=== PATIENT | female | born 1950 | race Caucasian/White ===

== ENCOUNTER 2016-11-21 21:06 | Observation (INO) | payer MEDICARE, OTHER ==
[2016-11-21 21:10] VITALS: BMI 31.9
[2016-11-21 21:37] LABS: ADD MANUAL DIFF? NO
[2016-11-21 21:58] LABS: ALB/GLOB RATIO 1.2 (1.1-1.8); ALKALINE PHOSPHATASE 73 U/L (38-133); ALT/SGPT 38 U/L (7-56); AST/SGOT 45 U/L (15-39); BLOOD UREA NITROGEN 18 mg/dL (7-21); CALCIUM 8.4 mg/dL (8.4-10.5); CARBON DIOXIDE 25 mmol/L (21-33); CHLORIDE 99 mmol/L (98-107); GFR AFRICAN-AMERICAN 39; GLUCOSE,RANDOM 140 mg/dL (70-110); MAGNESIUM 1.4 mg/dL (1.7-2.2); SODIUM 138 mmol/L (132-148); TOTAL PROTEIN 7.6 g/dL (5.8-8.3)
[2016-11-21 21:59] LABS: BASO # 0.01 K/mm3 (0.0-2.0); BASO % 0.1 % (0.0-3.0); GRAN # 5.04 (1.4-6.5); GRAN % 72.1 % (50.0-68.0); HEMATOCRIT 36.8 % (36.0-48.0); LYMPH # 1.6 (1.2-3.4); LYMPH % 22.5 % (22.0-35.0); MEAN CELL VOLUME 95.6 fL (80.0-105.0); MEAN CORPUSCULAR HEMOGLOBIN 34.3 pg (25.0-35.0); MEAN CORPUSCULAR HGB CONC 35.9 g/dl (31.0-37.0); MEAN PLATELET VOLUME 9.2 fl (7.0-11.0); MONO # 0.4 (0.1-0.6); MONO % 5.3 % (1.0-6.0); PLATELET COUNT 168 10^3/uL (120.0-450.0); RED CELL DISTRIBUTION WIDTH 14.4 % (11.5-14.5)
[2016-11-21] MEDS ORDERED: Nitroglycerin 2% Ointment Foilpak UD TOP STA (21:59)
[2016-11-21 22:00] LABS: POTASSIUM 2.8 mmol/L (3.6-5.0)
[2016-11-21 22:10] LABS: TROPONIN I < 0.01 ng/mL
[2016-11-21] MEDS ORDERED: Magnesium Oxide 400 mg Tab UD PO STA (22:24)
[2016-11-21 22:52] LABS: URINE BILIRUBIN SMALL (NEGATIVE); URINE BLOOD SMALL (NEGATIVE); URINE GLUCOSE (UA) NEGATIVE (NEGATIVE); URINE KETONE 15 mg/dL (NEGATIVE); URINE LEUKOCYTE ESTERASE MODERATE Leu/uL (NEGATIVE); URINE PROTEIN 100 mg/dL (<30 mg/dL)
[2016-11-21 22:56] LABS: URINE APPEARANCE CLOUDY (CLEAR); URINE COLOR YELLOW (YELLOW)
[2016-11-21 23:15] LABS: URINE BACTERIA MANY (NEG); URINE WBC 25 - 30 /hpf (0-6)
--- NOTE | 2016-11-21 23:19 | ED PDOC ---
Arrival/HPI - General Chief Complaint: Chest Pain Time Seen by Provider: 11/21/16 21:08 Historian: Patient - History of Present Illness Narrative History of Present Illness (Text): 11/21/16 23:16 Willow Cast is a 66 year old female, with a history of CHF, hypertension, asthma, and diabetes, presents to the emergency department complaining of intermittent chest pain for past 3 days. States that pain presented today while watching a movie. Also reports of cramping sensation to hands. Denies fever, chills, headache, dizziness, shortness of breath, nausea, vomiting, diarrhea, urinary symptoms, or any other complaints at this time. Time/Duration: < week (3 days ) Symptom Onset: Gradual Symptom Course: Intermittent Severity Level: Mild Activities at Onset: Light Past Medical History - Provider Review Nursing Documentation Reviewed: Yes - Past History Past History: No Previous - Infectious Disease Hx of Infectious Diseases: None - Tetanus Immunization Tetanus Immunization: Unknown - Reproductive Menopause: Yes - Past Medical History Past Medical History: No Previous - Cardiac Hx Cardiac Disorders: Yes Hx Congestive Heart Failure: Yes Hx Hypertension: Yes Hx Pacemaker: No - Pulmonary Hx Respiratory Disorders: Yes Hx Asthma: Yes - Neurological Hx Neurological Disorder: No Hx Paralysis: No - HEENT Hx HEENT Disorder: No - Renal Hx Renal Disorder: No - Endocrine/Metabolic Hx Endocrine Disorders: Yes Hx Diabetes Mellitus Type 2: Yes - Hematological/Oncological Hx Blood Disorders: No Hx Blood Transfusions: No - Integumentary Hx Dermatological Disorder: No - Musculoskeletal/Rheumatological Hx Musculoskeletal Disorders: Yes - Gastrointestinal Hx Gastrointestinal Disorders: No - Genitourinary/Gynecological Hx Genitourinary Disorders: No - Psychiatric Hx Psychophysiologic Disorder: No Hx Emotional Abuse: No Hx Physical Abuse: No Hx Substance Use: No - Past Surgical History Past Surgical History: No Previous - Surgical History Hx Cardiac Catheterization: Yes Hx Coronary Stent: Yes - Anesthesia Hx Anesthesia: Yes Hx Anesthesia Reactions: No Hx Malignant Hyperthermia: No - Suicidal Assessment Feels Threatened In Home Enviroment: No Family/Social History - Physician Review Nursing Documentation Reviewed: Yes Family/Social History: No Known Family HX Smoking Status: Former Smoker Hx Alcohol Use: Yes (MINIMAL/SOCIALLY) Hx Substance Use: No Hx Substance Use Treatment: No Allergies/Home Meds Allergies/Adverse Reactions: Allergies No Known Allergies Allergy (Verified 10/21/15 16:28) Home Medications: Home Meds Medication Instructions Recorded Confirmed Acetaminophen/Oxycodone Hydr 1 tab PO PRN PRN 02/08/15 11/21/16 [Percocet 10/325 mg Tab] Furosemide [Lasix] 40 mg PO DAILY 02/17/15 11/21/16 diaZEpam [Valium] 10 mg PO PRN PRN 02/17/15 11/21/16 Atorvastatin [Lipitor] 80 mg PO DAILY 03/11/15 11/21/16 DULoxetine [Cymbalta] 20 mg PO DAILY 03/11/15 11/21/16 Famotidine [Pepcid] 20 mg PO QAM 03/11/15 11/21/16 Lisinopril/Hydrochlorothiazide 1 tab PO DAILY 03/11/15 11/21/16 [Lisinopril-Hydrochlorothiazide 25 mg-20 mg] Bupropion HCl [Bupropion Xl] 150 mg PO DAILY 10/21/15 11/21/16 Simvastatin [Zocor] 20 mg PO DAILY 10/21/15 11/21/16 Digoxin [Lanoxin] 0.125 mg PO QAM 11/21/16 11/21/16 Metformin HCl [Glucophage] 500 mg PO BID 11/21/16 11/21/16 Propranolol HCl [Propranolol HCl] 40 mg PO DAILY 11/21/16 11/21/16 Review of Systems - Physician Review All systems were reviewed & negative as marked: Yes - Review of Systems Constitutional: Normal. absent: Fatigue, Fevers Respiratory: absent: SOB, Cough, Sputum Cardiovascular: Chest Pain. absent: Palpitations Gastrointestinal: Normal. absent: Abdominal Pain, Diarrhea, Nausea, Vomiting Genitourinary Female: Normal Musculoskeletal: Other (cramping sensation to hands ) Skin: Normal Neurological: Normal. absent: Headache, Dizziness Psychiatric: Normal Physical Exam Vital Signs Reviewed: Yes Vital Signs Temp Pulse Pulse Resp BP BP Pulse Ox 11/21/16 23:40 87 17 158/97 H 100 11/21/16 21:32 96 H 140/84 11/21/16 21:17 98.7 F 96 H 18 140/84 100 Temperature: Afebrile Blood Pressure: Normal Pulse: Tachycardic Respiratory Rate: Normal Appearance: Positive for: Well-Appearing, Non-Toxic, Comfortable Pain Distress: None Mental Status: Positive for: Alert and Oriented X 3 - Systems Exam Head: Present: Atraumatic, Normocephalic Pupils: Present: PERRL Conjunctiva: Present: Normal Respiratory/Chest: Present: Clear to Auscultation, Good Air Exchange. No: Respiratory Distress, Accessory Muscle Use Cardiovascular: Present: Regular Rate and Rhythm, Normal S1, S2. No: Murmurs Abdomen: Present: Normal Bowel Sounds. No: Tenderness, Distention, Peritoneal Signs Upper Extremity: Present: Normal Inspection. No: Cyanosis, Edema Lower Extremity: Present: Normal Inspection. No: Edema Neurological: Present: GCS=15, CN II-XII Intact, Speech Normal, Motor Func Grossly Intact, Normal Sensory Function Skin: Present: Warm, Dry, Normal Color. No: Rashes Psychiatric: Present: Alert, Oriented x 3, Normal Insight, Normal Concentration Medical Decision Making ED Course and Treatment: 11/21/16 23:23 Impression: A 66 year old female who presents to the emergency department complaining of 3 day duration of intermittent chest pain and cramping of hands. Plan: -- EKG -- Chest X-ray -- Labs -- Keflex -- Mag-Ox -- Potassium -- Nitroglycerin -- Urine culture -- Urinalysis -- Reassess and disposition Progress Notes: 11/21/16 23:25 EKG reviewed by me: NSR @ 85 bpm. Possible left atrial enlargement. Prolonged QT. Case discussed with who is aware and agrees with the plan to observe patient in telemetry for chest pain. Accepts patient under her service. - Lab Interpretations Microbiology Results: Microbiology Results 11/21/16 22:15 Urine,Clean Catch Urine Culture - Final No Growth (<1,000 CFU/ML) Lab Results: 11/21/16 21:30 11/21/16 21:30 Lab Results 11/21/16 22:15: Urine Color Yellow, Urine Appearance Cloudy, Urine pH 6.0, Ur Specific [place] >= 1.030, Urine Protein 100 H, Urine Glucose (UA) Negative, Urine Ketones 15 H, Urine Blood Small H, Urine Nitrate Negative, Urine Bilirubin Small H, Urine Urobilinogen 1.0 H, Ur Leukocyte Esterase Moderate H, Urine RBC 5 - 10, Urine WBC 25 - 30, Ur Epithelial Cells 10 - 12, Urine Bacteria Many 11/21/16 21:30: Sodium 138, Potassium 2.8 L* D, Chloride 99, Carbon Dioxide 25, Anion Gap 17, BUN 18, Creatinine 1.6 H, Est GFR ( Amer) 39, Est GFR (Non- Af Amer) 32, Random Glucose 140 H, Calcium 8.4, Magnesium 1.4 L, Total Bilirubin 1.0, AST 45 H, ALT 38, Alkaline Phosphatase 73, Lactate Dehydrogenase 562, Total Creatine Kinase 200, Troponin I < 0.01, Total Protein 7.6, Albumin 4.1, Globulin 3.5, Albumin/Globulin Ratio 1.2 11/21/16 21:30: WBC 7.0, RBC 3.85, Hgb 13.2, Hct 36.8, MCV 95.6, MCH 34.3, MCHC 35.9, RDW 14.4, Plt Count 168, MPV 9.2, Gran % 72.1 H, Lymph % (Auto) 22.5, Mclennan % (Auto) 5.3, Eos % (Auto) 0.0 L, Baso % (Auto) 0.1, Gran # 5.04, Lymph # 1.6, Mclennan # 0.4, Eos # 0.0, Baso # 0.01 I have reviewed the lab results: Yes - RAD Interpretation Radiology Orders: 11/21/16 21:32 CHEST PORTABLE [RAD] Stat - EKG Interpretation Interpreted by ED Physician: Yes Type: 12 lead EKG - Medication Orders Current Medication Orders: Discontinued Medications Acetaminophen (Tylenol 325mg Tab) 650 mg PO Q4H PRN PRN Reason: Fever >100.5 F Last Admin: 11/22/16 21:42 Dose: 650 mg Aminophylline (Aminophylline 25 Mg/Ml Inj) Confirm Administered Dose 250 mg .ROUTE .STK-MED ONE Stop: 11/23/16 11:19 Last Admin: 11/23/16 10:00 Dose: 100 mg Aspirin (Aspirin Chewable) 81 mg PO DAILY [facility] Last Admin: 11/23/16 14:14 Dose: 81 mg Atorvastatin Calcium (Lipitor) 80 mg PO DAILY [facility] Last Admin: 11/23/16 14:13 Dose: 80 mg Cephalexin Monohydrate (Keflex) 500 mg PO STAT STA PRN Reason: Protocol Stop: 11/21/16 23:13 Last Admin: 11/21/16 23:38 Dose: 500 mg Cephalexin Monohydrate (Keflex) 500 mg PO BID [facility] PRN Reason: Protocol Last Admin: 11/23/16 18:00 Dose: Clopidogrel Bisulfate (Plavix) 75 mg PO DAILY [facility] Last Admin: 11/23/16 14:13 Dose: 75 mg Digoxin (Lanoxin) 0.125 mg PO 1400 [facility] Last Admin: 11/23/16 14:14 Dose: 0.125 mg Duloxetine HCl (Cymbalta) 20 mg PO DAILY [facility] Last Admin: 11/23/16 14:13 Dose: 20 mg Famotidine (Pepcid) 20 mg PO QAM [facility] Last Admin: 11/23/16 14:13 Dose: 20 mg Furosemide (Lasix) 40 mg PO DAILY [facility] Last Admin: 11/23/16 14:15 Dose: 40 mg Hydrochlorothiazide (Hydrodiuril) 25 mg PO DAILY [facility] Last Admin: 11/23/16 14:16 Dose: 25 mg Potassium Chloride (Potassium Chloride 20 Meq/100 Ml) 20 meq in 100 mls @ 50 mls/hr IVPB Q2H [facility] Stop: 11/22/16 02:14 Last Admin: 11/22/16 00:50 Dose: 50 mls/hr Insulin Human Regular (Humulin R Low) 0 units SC [facility] PRN Reason: Protocol Last Admin: 11/22/16 07:49 Dose: Not Given Non-Admin Reason: Blood Sugar Parameter Insulin Human Regular (Humulin R Low) 0 units SC [facility] PRN Reason: Protocol Last Admin: 11/23/16 18:20 Dose: Not Given Non-Admin Reason: Blood Sugar Parameter Lisinopril (Zestril) 20 mg PO DAILY [facility] Last Admin: 11/23/16 14:17 Dose: 20 mg Magnesium Oxide (Mag-Ox) 400 mg PO STAT STA Stop: 11/21/16 22:25 Last Admin: 11/21/16 22:38 Dose: 400 mg Mirtazapine (Remeron) 15 mg PO HS PRN PRN Reason: Insomnia Last Admin: 11/22/16 21:42 Dose: 15 mg Oxycodone/Acetaminophen (Percocet 5/325 Mg Tab) 1 tab PO ONCE ONE Stop: 11/23/16 14:29 Last Admin: 11/23/16 14:38 Dose: 1 tab Potassium Chloride (K-Dur 20 Meq Er Tab) 40 meq PO ONCE ONE Stop: 11/22/16 09:19 Last Admin: 11/22/16 11:27 Dose: 40 meq Potassium Chloride (K-Dur 20 Meq Er Tab) 40 meq PO ONCE ONE Stop: 11/22/16 14:01 Last Admin: 11/22/16 15:31 Dose: 40 meq Potassium Chloride (K-Dur 20 Meq Er Tab) 40 meq PO ONCE ONE Stop: 11/23/16 07:31 Last Admin: 11/23/16 08:04 Dose: 40 meq Propranolol HCl (Inderal) 40 mg PO DAILY [facility] Last Admin: 11/23/16 14:15 Dose: 40 mg Regadenoson (Lexiscan) Confirm Administered Dose 0.4 mg IVP .STK-MED ONE Stop: 11/23/16 11:19 Last Admin: 11/23/16 11:45 Dose: 0.4 mg Spironolactone (Aldactone) 25 mg PO DAILY [facility] Last Admin: 11/23/16 14:14 Dose: 25 mg Tramadol HCl (Ultram) 50 mg PO DAILY PRN PRN Reason: Pain, moderate (4-7) Last Admin: 11/22/16 18:19 Dose: 50 mg - Cindy Statement The provider has reviewed the documentation as recorded by the Cindy Morton Provider Attestation: All medical record entries made by the Cindy were at my direction and personally dictated by me. I have reviewed the chart and agree that the record accurately reflects my personal performance of the history, physical exam, medical decision making, and the department course for this patient. I have also personally directed, reviewed, and agree with the discharge instructions and disposition. Disposition/Present on Arrival - Present on Arrival Any Indicators Present on Arrival: No History of DVT/PE: No History of Uncontrolled Diabetes: No Urinary Catheter: No History of Decub. Ulcer: No History Surgical Site Infection Following: None - Disposition Have Diagnosis and Disposition been Completed?: Yes Diagnosis: Chest pain, Hypokalemia Disposition: HOSPITALIZED Disposition Time: 23:20 Condition: GOOD
[2016-11-22] MEDS ORDERED: Insulin Reg-LOW-Coverage SC SCH (07:30)
[2016-11-22 08:00] LABS: MAGNESIUM 1.4 mg/dL (1.7-2.2)
[2016-11-22 08:09] LABS: TROPONIN I 0.02 ng/mL
[2016-11-22 08:16] LABS: IRON 177 ug/dL (45-180)
[2016-11-22] MEDS ORDERED: Potassium Chloride 20 mEq ER Tab PO ONE ×4 (09:18→17:00)
--- NOTE | 2016-11-22 09:48 | RAD ---
HISTORY: cp COMPARISON: 02/08/2015 FINDINGS: LUNGS: No active pulmonary disease. PLEURA: No significant pleural effusion identified, no pneumothorax apparent. CARDIOVASCULAR: Normal. OSSEOUS STRUCTURES: No significant abnormalities. VISUALIZED UPPER ABDOMEN: Normal. OTHER FINDINGS: None. IMPRESSION: No active disease.
--- NOTE | 2016-11-22 10:08 | CON ---
DATE: 11/22/2016 ADDENDUM REASON FOR DICTATION: Addendum to the initial consult dictated. REASON FOR ADDENDUM: Repeat potassium shows 2.8. The patient was brought to the stress lab for a st ress test today, but the repeat potassium shows 2.8, so stress test canceled because of a very signif icant low and high risk for arrhythmia, so we are sending back to the floor. Start potassium stat 40 now, another 40 mg at 1 p.m., another third dose of potassium at 5 p.m., so total of 120 mEq today. Resume the diet. We will keep n.p.o. after midnight for stress test rescheduled tomorrow. Also, we will start spironolactone 25 mg daily from tomorrow because patient is already on hydrochlorothiazid e, needs supplement. If tomorrow potassium remains stable, we will do a stress test tomorrow. Thank you, Dr. Olvera, for providing us the opportunity in taking care of the patient. Diana Adkins MD cc:Fariha Olvera MD [id number] TT: 11/22/2016 10:07:19 Confirmation # [id number] Dictation # [id number]
--- NOTE | 2016-11-22 10:35 | CON ---
DATE: 11/22/2016 SERVICE: Cardiology. PHYSICIAN: Diana Adkins MD. REASON FOR CONSULTATION: Coronary artery disease, admitted with chest pain, status post multiple PTCAs. BRIEF CLINICAL HISTORY: This is a 66-year-old female with past medical history significant for hypertension, asthma, COPD, diabetes, hypertension, hyperlipidemia, coronary artery disease status post multiple stents, who was in the movie theater with her daughter and granddaughter, and suddenly feels a squeezing sensation in the chest, and it went into the arm. So decided to come to the Emergency Room. Denies any chest pain, but she complained sometimes chest pain comes, and it stays there for a while, and then gets better. History of PTCAs in the past. PAST MEDICAL HISTORY: Significant for coronary artery disease, diabetes, hypertension, hyperlipidemia, history of congestive heart failure in 2004 that the patient had echo and stress at [facility], and was told negative. Recently, the patient had cardiac catheterization last year, and then subsequently, PTCA of RCA was done. History of diabetes, hypertension, hyperlipidemia, possibly some element of noncompliance also. Previous cardiac workup as follows: The patient had a stress test on 2014 that shows no perfusion defect. When compared from 04/13/2012, unchanged, however, deterioration of the LV function noted. Ejection fraction on the last stress 02/09/2015 was 39%, and prior, it was 62% in 2011. Echocardiography done on 02/09/2015 that showed ejection fraction 35% -40%, trace aortic regurgitation, mild to moderate mitral regurg, mild to moderate tricuspid regurgitation, RV systolic pressure 44. The patient, subsequently, underwent cardiac catheterization on 02/11/2015 with the deployment of drug-eluting stent in LAD with a SARTHAK. At that time, cardiac catheterization revealed 2-vessel disease involving mid LAD and proximal, and mid RCA as well as distal RCA, ejection fraction 45-50%. EDP was in the range of 18. At that time, successful PTCA with a drug-eluting stent in mid LAD was done on , and subsequently, the patient admitted for a staged PTCA of RCA on 09/2014, when the patient underwent a staged PTCA of mid RCA with a drug- eluting stent and the proximal RCA with a drug-eluting stent in RCA. At that time, LV function, ejection fraction is 40-45%, patent stent to mid LAD just done a month ago, and EDP was in the range of 24, aggressive medical treatment was recommended. The patient was sent home on aspirin and Plavix. SOCIAL HISTORY: Denies any history of alcohol abuse. ALLERGIES: No known drug allergy. CURRENT MEDICATIONS: The patient is taking propranolol 40 mg daily, metformin, digoxin,ASA, simvastatin, lisinopril, furosemide,, Cymbalta, Plavix,, atorvastatin, aspirin, acetaminophen. REVIEW OF SYSTEMS: As per HPI. PHYSICAL EXAMINATION: VITAL SIGNS: Temperature afebrile, heart rate 86 blood pressure 130/54. HEENT: PERRLA. Extraocular muscles intact. NECK: Supple. No carotid bruits. No thyromegaly. CHEST: Clear to auscultation. HEART: S1, S2 regular. ABDOMEN: Soft. EXTREMITIES: Clubbing and cyanosis negative. LABORATORY DATA: Blood workup as follows: WBC 7, hemoglobin 13.2, hematocrit 36.8, platelet count 168. Chemistry shows sodium 130, potassium 2.8, chloride 98, carbon dioxide 25, anion gap of 17, BUN 18, creatinine 1.6. Troponin 0.01 x 2 negative. IMPRESSION: Chest pain, some element of noncompliance, severe hypokalemia, coronary artery disease status post percutaneous transluminal coronary angioplasty of left anterior descending 02/11/2015, mid left anterior descending with a drug-eluting stent. Then, status post staged percutaneous transluminal coronary angioplasty of right coronary artery on 03/12/2015 with the proximal and distal right coronary artery, mid to distal right coronary artery, and the proximal right coronary artery with a drug-eluting stent. Ejection fraction 40- 45%. Mitral regurgitation, tricuspid regurgitation, diabetes, hypertension, hyperlipidemia. So far, troponin remains negative. No evidence of acute myocardial infarction. EKG shows normal sinus, left atrial enlargement. RECOMMENDATION: We will get echo and stress test today. We will keep n.p.o. Repeat a stat potassium, and will schedule for a stress test today. Further recommendation after the stress test. We will get lipid profile, TSH, hemoglobin A1c. Emphasis made on compliance with the medication, and also weight reduction and risk factor modification for lifestyle is recommended. Thank you, Dr. Olvera, for providing the opportunity in taking care of the patient. Diana Adkins MD cc: Fariha Olvera MD [phone] TT: 11/22/2016 10:18:48 Confirmation # [id number] Dictation # [id number] jn 11/22/2016 09:34:50 HOMERO
[2016-11-22] MEDS: Insulin Reg-LOW-Coverage SC SCH ×3 (12:21→22:54)
[2016-11-22 13:46] LABS: FOLATE 10.6 ng/mL
[2016-11-22] MEDS: Digoxin 125 mcg (0.125 mg) Tab PO SCH (15:31)
[2016-11-22 16:41] LABS: CALCIUM 8.2 mg/dL (8.4-10.5); POTASSIUM 3.8 mmol/L (3.6-5.0)
--- NOTE | 2016-11-22 21:20 | HP ---
CHIEF COMPLAINT: Chest pain, palpitation. HISTORY OF PRESENT ILLNESS: The patient is a 66-year-old female, new for me with history of congestive heart failure, hypertension, asthma, diabetes mellitus, who came to the Emergency Room complaining about intermittent chest pain for the last 3 days and palpitations. The patient states that pain presented today while watching a movie also reports of cramping sensation to the hands. No fever, no chills. No nausea, vomiting, diarrhea. No headache, no dizziness. PAST MEDICAL HISTORY: Menopause, congestive heart failure, hypertension, asthma , diabetes mellitus, coronary artery disease and cardiac stenting. FAMILY HISTORY: Father and mother, noncontributory. HABITS: Former smoker. No smoking now. Quit alcohol minimally, socially. No substance abuse. ALLERGIES: The patient is not allergic to any medications. HOME MEDICATIONS: Oxycodone, Lasix, Valium, Lipitor, Cymbalta, Pepcid, lisinopril, Zocor, digoxin, Glucophage, propranolol. REVIEW OF SYSTEMS: The patient is seen and examined on the bedside in the telemetry complaining about pain in the legs. No chest pain, no palpitations right now. No nausea, vomiting, or diarrhea. No hematuria or hematochezia. No fever, no chills, no headache, no dizziness, not depressed. No shortness of breath or coughing. PHYSICAL EXAMINATION: VITAL SIGNS: Temperature 98.7, pulse 96, respiratory rate 18. Blood pressure 140/84, pulse ox 100%. HEENT: Normocephalic, atraumatic. Eyes: PERRLA. Extraocular muscles are intact. Conjunctivae are clear. Nose patent. NECK: Supple. No carotid bruits, JVD, or thyromegaly. CHEST: Bilaterally symmetrical. HEART: S1, S2 positive. LUNGS: Clear to auscultation. ABDOMEN: Soft. Bowel sounds present. No organomegaly. EXTREMITIES: No edema, no cyanosis. NEUROLOGIC: The patient is alert, moving all 4 extremities. No focal deficits. LABORATORY DATA: White blood cell 7.0, hemoglobin 13.2, hematocrit 36.8, platelets 138. Potassium 2.8, BUN 18, creatinine 1.6, glucose 140. ASSESSMENT AND PLAN: This patient is a 66-year-old lady with severe hypokalemia replaced, renal insufficiency, diabetes mellitus, came with chest pain and palpitation, seen by Dr. Adkins, manager disaster recovery. History of coronary artery disease, hypertension, hypercholesterolemia, history of congestive heart failure in 2004, came with chest pain some element of noncompliance. Status post percutaneous transluminal coronary angioplasty of left anterior descending on 02/11/2015. Troponin is negative. No evidence of acute myocardial infarction. EKG shows normal sinus rhythm, left atrial enlargement. Repeat potassium. She was seen by Dr. Adkins, manager disaster recovery. Repeat potassium shows 2.8. stress test was scheduled today, but because of low potassium it was cancelled. The patient was given stat potassium 40 mEq and 40 mEq at 1 p.m., another one, third dose of potassium at 5 p.m.; so total of 120 mEq today. Resume the diet. Keep n.p.o. after midnight for stress test tomorrow, rescheduled tomorrow. The patient started on spironolactone because the patient is already on hydrochlorothiazide, needs supplement. If tomorrow's potassium is okay, will do stress test as per cardiology. Gastrointestinal and deep venous thrombosis prophylaxis. Repeat labs. We will follow up. Fariha Olvera MD cc: [id number] TT: 11/22/2016 21:19:37 jn MTDD
--- NOTE | 2016-11-22 22:58 | CARD ---
APPROVED REPORT EKG Measurement Heart [id number] <Conclusion> Normal sinus rhythm Possible Left atrial enlargement Prolonged QT Abnormal ECG
--- NOTE | 2016-11-22 23:00 | CARD ---
APPROVED REPORT EKG Measurement Heart [id number] ID [id number] <Conclusion> Normal sinus rhythm Possible Left atrial enlargement Borderline ECG
[2016-11-23 05:40] VITALS: O2SAT 98
[2016-11-23 06:25] LABS: ADD MANUAL DIFF? NO
[2016-11-23 06:34] LABS: BASO # 0.01 K/mm3 (0.0-2.0); BASO % 0.3 % (0.0-3.0); EOS % 0.7 % (1.5-5.0); GRAN # 1.57 (1.4-6.5); GRAN % 52.3 % (50.0-68.0); HEMATOCRIT 30.9 % (36.0-48.0); LYMPH # 1.1 (1.2-3.4); LYMPH % 37.7 % (22.0-35.0); MEAN CELL VOLUME 97.5 fL (80.0-105.0); MEAN CORPUSCULAR HEMOGLOBIN 33.8 pg (25.0-35.0); MEAN CORPUSCULAR HGB CONC 34.6 g/dl (31.0-37.0); MEAN PLATELET VOLUME 9.1 fl (7.0-11.0); MONO # 0.3 (0.1-0.6); PLATELET COUNT 121 10^3/uL (120.0-450.0); RED CELL DISTRIBUTION WIDTH 14.2 % (11.5-14.5)
[2016-11-23 06:53] LABS: ALKALINE PHOSPHATASE 47 U/L (38-133); ALT/SGPT 30 U/L (7-56); AST/SGOT 37 U/L (15-39); BILIRUBIN,TOTAL 0.8 mg/dL (0.2-1.3); BLOOD UREA NITROGEN 10 mg/dL (7-21); CALCIUM 8.1 mg/dL (8.4-10.5); CARBON DIOXIDE 26 mmol/L (21-33); CHLORIDE 108 mmol/L (98-107); GFR AFRICAN-AMERICAN > 60; GLUCOSE,RANDOM 100 mg/dL (70-110); MAGNESIUM 1.6 mg/dL (1.7-2.2); POTASSIUM 3.5 mmol/L (3.6-5.0); SODIUM 139 mmol/L (132-148)
[2016-11-23] MEDS ORDERED: Potassium Chloride 20 mEq ER Tab PO ONE (07:30)
[2016-11-23] MEDS: Insulin Reg-LOW-Coverage SC SCH ×3 (07:30→18:20)
--- NOTE | 2016-11-23 09:56 | PN ---
DATE: 11/23/2016 REASON FOR CONSULTATION AND FOLLOWUP: Coronary artery disease, admitted with chest pain, status post multiple PTCAs. BRIEF CLINICAL HISTORY: This is a 66-year-old female with past medical history significant for hyper tension, COPD, asthma, hypertension, hyperlipidemia, coronary artery disease, status post multiple st ents who was at movie theater with her daughter and granddaughter, had chest pain. So far, troponin is negative. No evidence of acute coronary syndrome. Potassium was 2.____. Repeat potassium after several minutes 2.8, then last night it was 3.8. This morning again the potassium is 3.5; it is supp lemented. The patient is scheduled for a stress test today. Denies any chest pain. PHYSICAL EXAMINATION: VITAL SIGNS: Temperature afebrile, heart rate 60, blood pressure 144/80. HEENT: PERRLA. Extraocular muscles intact. NECK: Supple. No carotid bruits. No thyromegaly. CHEST: Clear to auscultation. HEART: S1, S2 regular. ABDOMEN: Soft. EXTREMITIES: Clubbing and cyanosis negative. BLOOD WORKUP: As follows: WBC 3, hemoglobin 10.7, hematocrit 30.9, platelet count 121. Chemistry s hows sodium ____, potassium 3.5, chloride 108, carbon dioxide 26, anion gap of 9, BUN 10, creatinine 1.0. IMPRESSION: Atypical chest pain. So far, no evidence of acute coronary syndrome. PLAN: Given the multiple stents in the past, suggest echo and stress test. Supplement potassium 40 before he goes to the stress lab. Further recommendation after the stress lab. The patient's trigly cerides 146, cholesterol 146, LDL 51, HDL 66. TSH 3.76. Will follow with you. Thank you, Dr. Olvera, for providing the opportunity in taking care of the patient. Diana Adkins MD cc: [id number] TT: 11/23/2016 09:55:46 Confirmation # [id number] Dictation # [id number]
[2016-11-23] MEDS ORDERED: Aminophylline 25 mg/ml Inj ONE (11:18)
[2016-11-23] MEDS: Digoxin 125 mcg (0.125 mg) Tab PO SCH (14:14)
[2016-11-23 14:20] VITALS: PULSE 83
[2016-11-23] MEDS ORDERED: Oxycodone/Acetaminophen 5/325 mg Tab PO ONE ×2 (14:26→14:28)
--- NOTE | 2016-11-23 17:41 | CARD ---
APPROVED REPORT Protocol: LEXISCAN Test Type: Lexiscan Sestamibi Stress Test Attending Physician: Dr. Diana Crook Referring Physician: Dr. Fariha Olvera Test Indications: Chest Pain Height:5 ft 8 in Weight:210lbs Medications: Aspirin,Lipitor,Keflex,Plavix, Lanoxin,Cymbalta, Pepcid,Lasix, Insulin,Lisinipril,Inderal Medical History: 66 y/o female. Hx of chest pain, PTCA,hypertension, CHF,asthma,former smoker,diabetic. Target HR: 154 bpm Resting ECG: RSR. Resting Heart Rate: 69 bpm Resting Blood Pressure: 130/80mmHg Submaximum (85%): 131 bpm PROCEDURE Pharmacologic stress testing was performed using 0.4mg per 5ml of regadenoson given intravenously over 7-10 seconds. Reversal agent aminophyline 100 mg, given intravenously for Other. POST EXERCISE Reason for Termination: Protocol completed Target HR: No Max HR: 76 bpm 64% of Maximum Predicted HR: 154 bpm Exercise duration: 00:30 min:sec, 0 Stage Exercise capacity: 1.0METs Max Blood Pressure: 130/80mmHg Blood Pressure response to exercise: normal resting BP - appropriate response Heart Rate response to exercise: appropriate Chest Pain: No, none Angina index: 0 Arrhythmia: No, none ST Change: No, none Deviation: 0 mm INTERPRETATION Stress EKG Conclusion: IV LEXISCAN NUCLEAR STRESS TEST NEGATIVE FOR CHEST PAIN AND NEGATIVE FOR ST-T CHANGES. NUCLEAR SCAN REPORT PENDING. Signed by Diana Crook Electronically Approved: 11/23/2016 14:00:13 EXAM: Myocardial Perfusion REST/STRESS Stress Test Type: Pharmacologic Imaging Protocol Rest Spect myocardial perfusion imaging was performed in supine position 40 minutes following the injection of 10.5 mCi of Tc-99 Myoview. At peak stress, the patient was injected intravenously with 30.2mCi of Tc-99 tetrofosmin after an infusion time of 0 minutes and 10 seconds. Gated Stress Spect was performed 65 minutes after intravenous Tc-99 Myoview injection. The images were gated to evaluate regional wall motion and calculate ventricular ejection fraction.Images were reconstructed using backfilter projection method in short horizontal and verticle long axis. Spect slices were generated.
[2016-11-23 18:27] VITALS: BP 146/87; RESP 16; TEMP 97.6
[2016-11-23 18:37] VITALS: PULSE 69
--- NOTE | 2016-11-24 17:07 | CARD ---
APPROVED REPORT EXAM: Two-dimensional and M-mode echocardiogram with Doppler and color Doppler. INDICATION Chest Pain 2D DIMENSIONS Left Atrium (2D)4.4 (1.6-4.0cm)IVSd1.4 (0.7-1.1cm) LVDd4.5 (3.9-5.9cm)PWd1.3 (0.7-1.1cm) LVDs3.8 (2.5-4.0cm)FS (%) 16.2 % LVEF (%)34.0 (>50%) M-Mode DIMENSIONS Aortic Root2.80 (2.2-3.7cm)Aortic Cusp Exc.1.70 (1.5-2.0cm) Aortic Valve AoV Peak Jkzdmuls276.0cm/sAoV VTI30.7cmAO Peak GR.9mmHg LVOT Peak Ehuixoos46.0cm/sLVOT VTI17.90cmAO Mean GR.5mmHg Mitral Valve MV E Xuummmbs11.1cm/sMV A Mpzitaxu562.0cm/sE/A ratio0.6 TDI Lateral E' Peak V5.85cm/sMedial E' Peak V4.00cm/sE/Lateral E'12.3 E/Medial E'18.0 Pulmonary Valve PV Peak Stxyutqd75.7cm/sPV Peak Grad.2mmHg Tricuspid Valve TR Peak Hgjwnnny776gm/sRAP ZRRGYZRL61rrYgRU Peak Gr.30mmHg [id number] LEFT VENTRICLE The Left Ventricle is borderline dilated. There is mild concentric left ventricular hypertrophy. The systolic function is moderately impaired.EF-35% There is mild to moderate hypokinesis in the apical anterior wall. Transmitral Doppler flow pattern is Grade III-reversible restrictive diastolic dysfunction. No left ventricle thrombus noted on this study. There is no ventricular septal defect visualized. There is no left ventricular aneurysm. There is no mass noted in the left ventricle. RIGHT VENTRICLE The right ventricle is normal size. There is normal right ventricular wall thickness. The right ventricular systolic function is normal. ATRIA The left atrium is mildly dilated. The right atrium is borderline dilated. The interatrial septum is intact with no evidence for an atrial septal defect. AORTIC VALVE The aortic valve is thickened but opens well. There is mild aortic regurgitation. There is no aortic valvular stenosis. There is no aortic valvular vegetation. MITRAL VALVE The mitral valve is thickened but opens well. Mitral annular calcification is mild to moderate. Mitral regurgitation is moderate to severe. The mitral regurgitant jet is eccentrically directed. There is no mitral valve stenosis. There is no evidence of mitral valve prolapse. TRICUSPID VALVE The tricuspid valve leaflets are thickened , but open well. There is mild to moderate tricuspid regurgitation.RVSP-40 mmof hg. There is no tricuspid valve stenosis. There is no tricuspid valve prolapse or vegetation. PULMONIC VALVE The pulmonary valve is normal in structure. GREAT VESSELS The aortic root is normal in size. The ascending aorta is normal in size. The pulmonary artery is normal. The IVC is normal in size and collapses >50% with inspiration. PERICARDIAL EFFUSION There is no pleural effusion. There is no pericardial effusion. <Conclusion> The Left Ventricle is borderline dilated. There is mild concentric left ventricular hypertrophy. The systolic function is moderately impaired.EF-35% There is mild to moderate hypokinesis in the apical anterior wall. There is mild aortic regurgitation. Mitral regurgitation is moderate to severe. The mitral regurgitant jet is eccentrically directed. There is mild to moderate tricuspid regurgitation.RVSP-40 mmof hg. There is no pericardial effusion.
--- NOTE | 2016-12-05 07:50 | DS ---
CHIEF COMPLAINT: Chest pain, palpitations. HISTORY OF PRESENT ILLNESS: The patient is a 66-year-old female with a past medical history of congestive heart failure, hypertension, asthma, diabetes mellitus, coronary artery disease and cardiac stenting. Came to [facility] Emergency Room for chest pain and palpitation. Chest pain is intermittent for the last few days. The patient states that pain . while watching a movie. Also reports of cramping sensation in the hands. No fever, no chills. No nausea, vomiting, or diarrhea. We kept the patient. Called cardiology consult with Dr. Adkins. He did a cardiac stress test, cleared the patient, discharged home. Follow up with the primary care physician and histology specialist as outpatient. PAST MEDICAL HISTORY: Menopause, congestive heart failure, hypertension, asthma , diabetes mellitus, coronary artery disease, cardiac stenting. FAMILY HISTORY: Father and mother noncontributory. HABITS: Former smoker, no smoking now, quit alcohol, but drinking socially, no substance abuse. ALLERGIES: The patient is not allergic to any medications. HOME MEDICATIONS: Oxycodone, Lasix, Valium, Lipitor, Cymbalta, Pepcid, lisinopril, Zocor, digoxin, Glucophage, propranolol. REVIEW OF SYSTEMS: The patient is seen and examined on the bedside, looks comfortable. No nausea, vomiting, diarrhea. No hematuria, no hematochezia. No swelling of the legs. No chest pain, no palpitation, no headache, no dizziness. PHYSICAL EXAMINATION: VITAL SIGNS: Temperature 97.6, pulse 69, blood pressure 120/80 , respiratory rate 16. HEENT: Head normocephalic, atraumatic. Eyes: PERRLA. Extraocular muscles intact. Conjunctivae clear. Nose patent. Mucous membranes moist. NECK: Supple. No carotid bruit, no JVD, no thyromegaly. CHEST: Bilaterally symmetrical. HEART: S1, S2 positive. LUNGS: Clear to auscultation. ABDOMEN: Soft. Bowel sounds positive. No organomegaly. EXTREMITIES: No edema, no cyanosis. NEUROLOGIC: The patient is awake, alert, moving all 4 extremities. No focal deficits. LABORATORIES: White blood cells 8.3, hemoglobin 10.7, hematocrit 30.9, platelets 121. Sodium 139, potassium 3.5, BUN 10, creatinine 1.0, glucose 123, calcium 8.1, magnesium 1.6. ASSESSMENT AND PLAN: The patient is a 66-year-old lady with hypokalemia, hyperchloremia, hypocalcemia, hypomagnesemia, leukopenia, anemia, proteinuria, ketonuria, hematuria. Came with chest pain and palpitation. Seen by the histology specialist, Dr. Adkins. According to him, chest pain is atypical. So far, no evidence of acute coronary artery syndrome. The patient had multiple stents in the past. [employer] Worker suggested echo and stress test and he did the stress test. Potassium was supplemented. Rest SPECT myocardial perfusion imaging was performed in supine position, 44 minutes following injection of 4.5 ' Status post stress, patient was injected intravenous with 30.2 mCi of TC-99 , after an infusion time of 0 minutes and 10 seconds, gated stress test was performed. The patient was cleared by the histology specialist, discharged home. Follow up with primary care physician. IV Lexiscan nuclear stress test was negative for any chest pain and negative for ST-T changes. Will follow up. Fariha Olvera MD cc: [id number] TT: 12/05/2016 07:49:42 en MTDD
== END 2016-11-23 21:12 | disposition home or self-care (01) ==
LOC: ED 21:06 → ERH 23:20 → 2RSO 11-22 01:16
PROVIDERS: ADMIT Internal Medicine; ATTEND Internal Medicine
DX: R07.89 Other chest pain (principal); I25.10 Atherosclerotic heart disease of native coronary artery without angina pectoris; E87.6 Hypokalemia; E78.5 Hyperlipidemia, unspecified; E11.9 Type 2 diabetes mellitus without complications; I11.0 Hypertensive heart disease with heart failure; I50.9 Heart failure, unspecified; J44.9 Chronic obstructive pulmonary disease, unspecified; J45.909 Unspecified asthma, uncomplicated; N28.9 Disorder of kidney and ureter, unspecified; I08.1 Rheumatic disorders of both mitral and tricuspid valves; Z91.19 Patient's noncompliance with other medical treatment and regimen; Z95.5 Presence of coronary angioplasty implant and graft; Z87.891 Personal history of nicotine dependence; E78.00 Pure hypercholesterolemia, unspecified
CPT/HCPCS: 36415; 71010; 78452; 80048; 80053; 80061; 80162; 81001; 82550; 82607; 82746; 82948; 83036; 83540; 83550; 83615; 83735; 84100; 84132; 84443; 84484; 85025; 85027; 87086; 93005; 93017; 93306; 96365; 96366; 99285; A9502; G0378; J0280; J2785; J3480

== ENCOUNTER 2017-04-12 10:23 | Inpatient (IN) | payer MEDICARE, OTHER ==
[2017-04-12 10:27] VITALS: BMI 28.1
--- NOTE | 2017-04-12 10:57 | ED PDOC ---
Arrival/HPI - History of Present Illness Time/Duration: 4-6 hours Symptom Onset: Sudden Symptom Course: Unchanged Activities at Onset: Rest, Light Context: Home - General Chief Complaint: Dizziness/Lightheaded Time Seen by Provider: 04/12/17 10:28 - History of Present Illness Narrative History of Present Illness (Text): 04/12/17 10:53 Ms. Cast is a 66 year old female with a past medical history significant for CHF, HTN, DM2, and asthma who presents to the [facility] with a chief complaint of dizziness since this morning around 0800. She reports that earlier this morning, she sat up from laying down and began to feel a "loss of balance". She thought that this feeling might have been due to a headache so she took a medication which she cant recall with no relief. She has had brief episodes with similar symptoms over the past few weeks that have all been mild and self limiting. She denies any associated syncope, LOC, changes in her vision or any numbness/tingling/weakness in any of her extremities. She also endorses that she has had intermittent non-bloody, non-malodorous diarrhea with associated episodes of fecal incontinence. She reports that the diarrhea has been more frequent than solid formed stools and that it sometimes wakes her up from sleep. She denies any associated fever, chills, N/V, or urinary incontinence as well as any recent hospitalizations or antibiotic use. She also denies chest pain, palpitations, edema, ZAPATA, SOB, cough, or any wheezing. (EBONI FISHER) Past Medical History - Provider Review Nursing Documentation Reviewed: Yes - Travel History Have you recently traveled outside [place] w/in the past 3 mons?: No - Past History Past History: No Previous - Infectious Disease Hx of Infectious Diseases: None - Tetanus Immunization Tetanus Immunization: Unknown - Past Medical History Past Medical History: No Previous - Cardiac Hx Cardiac Disorders: Yes Hx Congestive Heart Failure: Yes Hx Hypertension: Yes Hx Pacemaker: No - Pulmonary Hx Respiratory Disorders: Yes Hx Asthma: Yes - Neurological Hx Neurological Disorder: No Hx Paralysis: No - HEENT Hx HEENT Disorder: Yes Other/Comment: glasses - Renal Hx Renal Disorder: No - Endocrine/Metabolic Hx Endocrine Disorders: Yes Hx Diabetes Mellitus Type 2: Yes - Hematological/Oncological Hx Blood Disorders: No Hx Blood Transfusions: No - Integumentary Hx Dermatological Disorder: No - Musculoskeletal/Rheumatological Hx Musculoskeletal Disorders: Yes - Gastrointestinal Hx Gastrointestinal Disorders: No - Genitourinary/Gynecological Hx Genitourinary Disorders: No - Psychiatric Hx Psychophysiologic Disorder: No Hx Emotional Abuse: No Hx Physical Abuse: No Hx Substance Use: No - Past Surgical History Past Surgical History: No Previous - Surgical History Hx Cardiac Catheterization: Yes Hx Coronary Stent: Yes - Anesthesia Hx Anesthesia: Yes Hx Anesthesia Reactions: No Hx Malignant Hyperthermia: No - Suicidal Assessment Feels Threatened In Home Enviroment: No Family/Social History - Physician Review Nursing Documentation Reviewed: Yes Family/Social History: Unknown Family HX Smoking Status: Former Smoker Hx Alcohol Use: Yes (MINIMAL/SOCIALLY) Hx Substance Use: No Hx Substance Use Treatment: No Allergies/Home Meds Allergies/Adverse Reactions: Allergies No Known Allergies Allergy (Verified 04/12/17 10:27) Home Medications: Home Meds Medication Instructions Recorded Confirmed Acetaminophen/Oxycodone Hydr 1 tab PO PRN PRN 02/08/15 04/12/17 [Percocet 10/325 mg Tab] Furosemide [Lasix] 40 mg PO DAILY 02/17/15 04/12/17 diaZEpam [Valium] 10 mg PO PRN PRN 02/17/15 04/12/17 Atorvastatin [Lipitor] 80 mg PO DAILY 03/11/15 04/12/17 DULoxetine [Cymbalta] 20 mg PO DAILY 03/11/15 04/12/17 Lisinopril/Hydrochlorothiazide 1 tab PO DAILY 03/11/15 04/12/17 [Lisinopril-Hydrochlorothiazide 25 mg-20 mg] Bupropion HCl [Bupropion Xl] 150 mg PO DAILY 10/21/15 04/12/17 Digoxin [Lanoxin] 0.125 mg PO QAM 11/21/16 04/12/17 Metformin HCl [Glucophage] 500 mg PO BID 11/21/16 04/12/17 Propranolol HCl [Propranolol HCl] 40 mg PO DAILY 11/21/16 04/12/17 Review of Systems - Physician Review All systems were reviewed & negative as marked: Yes - Review of Systems Constitutional: Normal. absent: Fevers Eyes: Normal. absent: Vision Changes, Photophobia Respiratory: Normal. absent: SOB, Cough, Wheezing Cardiovascular: Normal. absent: Chest Pain, Palpitations, Edema, ZAPATA, Syncope Gastrointestinal: Diarrhea, Other (Endorses intermittent fecal incontinence; Denies melena). absent: Normal, Constipation, Nausea, Vomiting, Hematochezia Genitourinary Female: Normal, Other (Denies urinary incontinence). absent: Dysuria Musculoskeletal: Normal. absent: Back Pain, Neck Pain Skin: Normal. absent: Rash Neurological: Dizziness, Disequilibrium. absent: Normal, Headache, Focal Weakness, Gait Changes, Seizure Endocrine: Normal. absent: Polyuria, Polydipsia Physical Exam Vital Signs Reviewed: Yes Temperature: Afebrile Blood Pressure: Hypertensive Pulse: Regular Respiratory Rate: Normal Appearance: Positive for: Well-Appearing, Non-Toxic, Comfortable Pain Distress: None Mental Status: Positive for: Alert and Oriented X 3 - Systems Exam Head: Present: Atraumatic, Normocephalic Pupils: Present: PERRL Extroacular Muscles: Present: EOMI Conjunctiva: Present: Normal Mouth: Present: Moist Mucous Membranes Pharnyx: Present: Normal. No: ERYTHEMA, EXUDATE, TONSILS ENLARGED Nose (External): Present: Atraumatic Nose (Internal): Present: Normal Inspection Neck: Present: Normal Range of Motion, Trachea Midline. No: Meningeal Signs, MIDLINE TENDERNESS, Paraspinal Tenderness, JVD, Lymphadenopathy Respiratory/Chest: Present: Clear to Auscultation, Good Air Exchange. No: Respiratory Distress, Accessory Muscle Use, Wheezes, Decreased Breath Sounds, Rhonchi, Tachypneic, Tender to Palpation Cardiovascular: Present: Regular Rate and Rhythm, Normal S1, S2, Peripheal Pulses Present. No: Murmurs, Irregular Rhythm, Tachycardic, Bradycardic, Rub, Gallop Abdomen: Present: Normal Bowel Sounds. No: Tenderness, Distention, Peritoneal Signs, McBurney's Point Tender, Mass/Organomegaly Back: Present: Normal Inspection. No: CVA Tenderness, Midline Tenderness, Paraspinal Tenderness Upper Extremity: Present: Normal Inspection, Normal ROM, NORMAL PULSES, Capillary Refill < 2s. No: Cyanosis, Edema Lower Extremity: Present: Normal Inspection, NORMAL PULSES, Capillary Refill < 2 s. No: Edema, CALF TENDERNESS Neurological: Present: GCS=15, CN II-XII Intact, Speech Normal Skin: Present: Warm, Dry, Normal Color. No: Rashes Lymphatic: No: Cervical Adenopathy Psychiatric: Present: Alert, Oriented x 3, Normal Insight, Normal Concentration Vital Signs Temp Pulse Resp BP Pulse Ox 04/12/17 14:00 97.7 F 96 H 17 144/75 100 04/12/17 12:23 97.6 F 85 15 139/77 100 04/12/17 10:30 97.8 F 80 18 160/84 H 98 Medical Decision Making - Lab Interpretations I have reviewed the lab results: Yes - EKG Interpretation Interpreted by ED Physician: Yes Type: 12 lead EKG ED Course and Treatment: 04/12/17 11:09 Impression: 66 year old female with a past medical history significant for CHF, HTN, DM2, and asthma who presents to the [facility] with a chief complaint of dizziness since this morning as well as intermittent diarrhea over the past few months Plan: -CBC, CMP, cardiac iso's, and UA -EKG -CT head w/o contrast -Reassess and disposition Prior Visits: All results and reports from previous visits were reviewed. 11/2016: Patient was seen and evaluated for chest pain. An ECHO done showed an LVEF of 34%. 04/12/17 14:[address] Olvera who agrees to admit patient under her service for observation on telemetry. This was discussed with patient and she is in agreement with plan. (EBONI FISHER) pt seen with resident. pt with dizziness x few days. labs show hypokalemia, with prolonged qtc. ua possible uti. ct head neg. n euro intact. pt requests dr olvera for admission. accepted by dr olvera 04/12/17 15:32 (Bj Pederson) - Lab Interpretations Lab Results: 04/12/17 11:16 04/12/17 11:16 Lab Results 04/12/17 11:59: Magnesium 1.9 04/12/17 11:52: Urine Color Yellow, Urine Appearance Clear, Urine pH 6.0, Ur Specific [place] 1.020, Urine Protein 100 H, Urine Glucose (UA) 500 H, Urine Ketones Negative, Urine Blood Small H, Urine Nitrate Negative, Urine Bilirubin Negative, Urine Urobilinogen 0.2, Ur Leukocyte Esterase Large H, Urine RBC 15 - 20, Urine WBC 25 - 30, Ur Epithelial Cells Many, Amorphous Sediment Few, Urine Bacteria Large, Hyaline Casts 0 - 2, Urine Other Uyeast 04/12/17 11:16: Digoxin < 0.4 L 04/12/17 11:16: Sodium 140, Potassium 2.5 L* D, Chloride 95 L, Carbon Dioxide 33 , Anion Gap 15, BUN 15, Creatinine 1.2, Est GFR ( Amer) 54, Est GFR (Non- Af Amer) 45, Random Glucose 124 H, Calcium 8.8, Total Bilirubin 0.9, AST 34, ALT 25, Alkaline Phosphatase 63, Lactate Dehydrogenase 617, Total Creatine Kinase 213, Troponin I < 0.01 D, Total Protein 7.7, Albumin 4.6, Globulin 3.2, Albumin/Globulin Ratio 1.4 04/12/17 11:16: WBC 7.5 D, RBC 3.71, Hgb 12.3, Hct 35.5 L, MCV 95.7, MCH 33.2, MCHC 34.6, RDW 14.1, Plt Count 167, MPV 9.4, Gran % 86.4 H, Lymph % (Auto) 9.5 L , Rooks % (Auto) 3.9, Eos % (Auto) 0.1 L, Baso % (Auto) 0.1, Gran # 6.46, Lymph # 0.7 L, Rooks # 0.3, Eos # 0.0, Baso # 0.01 04/12/17 10:33: POC Glucose (mg/dL) 163 H - RAD Interpretation Radiology Orders: 04/12/17 10:57 HEAD W/O CONTRAST [CT] Stat - Medication Orders Current Medication Orders: Atorvastatin Calcium (Lipitor) 80 mg PO DAILY [facility] Bupropion HCl (Wellbutrin Xl) 150 mg PO DAILY [facility] Clopidogrel Bisulfate (Plavix) 75 mg PO DAILY [facility] Digoxin (Lanoxin) 0.125 mg PO 1400 [facility] Duloxetine HCl (Cymbalta) 20 mg PO DAILY [facility] Furosemide (Lasix) 40 mg PO DAILY [facility] Hydrochlorothiazide (Hydrodiuril) 25 mg PO DAILY [facility] Lisinopril (Zestril) 20 mg PO DAILY [facility] Metformin HCl (Glucophage) 500 mg PO BID [facility] Mirtazapine (Remeron) 15 mg PO HS PRN PRN Reason: Insomnia Propranolol HCl (Inderal) 40 mg PO DAILY [facility] Discontinued Medications Potassium Chloride (Potassium Chloride 10 Meq/100 Ml) 10 meq in 100 mls @ 100 mls/hr IVPB Q2H JOANNE Stop: 04/12/17 14:44 Last Admin: 04/12/17 13:51 Dose: 100 mls/hr eMAR Start Stop Document 04/12/17 13:51 AB (Rec: 04/12/17 13:51 AB [id number]) Intravenous Solution Start Date 04/12/17 Start Time 13:51 End Date 04/12/17 End time 14:51 Total Infusion Time 60 Ceftriaxone Sodium (Rocephin 1 Gram Ivpb) 1 gm in 100 mls @ 200 mls/hr IVPB STAT STA PRN Reason: Protocol Stop: 04/12/17 12:53 Last Admin: 04/12/17 13:03 Dose: 200 mls/hr eMAR Start Stop Document 04/12/17 13:03 AB (Rec: 04/12/17 13:03 AB [id number]) Intravenous Solution Start Date 04/12/17 Start Time 13:03 End Date 04/12/17 End time 13:33 Total Infusion Time 30 Meclizine HCl (Antivert) 25 mg PO STAT STA Stop: 04/12/17 11:18 Last Admin: 04/12/17 11:34 Dose: 25 mg Potassium Chloride (K-Dur 20 Meq Er Tab) 40 meq PO STAT STA Stop: 04/12/17 11:45 Last Admin: 04/12/17 12:06 Dose: 40 meq Disposition/Present on Arrival - Present on Arrival Any Indicators Present on Arrival: No History of DVT/PE: No History of Uncontrolled Diabetes: No Urinary Catheter: No History of Decub. Ulcer: No History Surgical Site Infection Following: None - Disposition Have Diagnosis and Disposition been Completed?: Yes Disposition Time: 14:20 - Disposition Diagnosis: Dizziness, Hypokalemia Disposition: HOSPITALIZED Patient Problems: Current Active Problems Problem Status Onset Dizziness Acute Hypokalemia Acute Condition: STABLE
[2017-04-12 11:28] LABS: BASO # 0.01 K/mm3 (0.0-2.0); BASO % 0.1 % (0.0-3.0); EOS % 0.1 % (1.5-5.0); GRAN # 6.46 (1.4-6.5); GRAN % 86.4 % (50.0-68.0); HEMATOCRIT 35.5 % (36.0-48.0); LYMPH # 0.7 (1.2-3.4); LYMPH % 9.5 % (22.0-35.0); MEAN CELL VOLUME 95.7 fl (80.0-105.0); MEAN CORPUSCULAR HEMOGLOBIN 33.2 pg (25.0-35.0); MEAN CORPUSCULAR HGB CONC 34.6 g/dl (31.0-37.0); MEAN PLATELET VOLUME 9.4 fl (7.0-11.0); MONO # 0.3 (0.1-0.6); MONO % 3.9 % (1.0-6.0); RED CELL DISTRIBUTION WIDTH 14.1 % (11.5-14.5); WHITE BLOOD COUNT 7.5 10^3/ul (4.5-11.0)
[2017-04-12 11:40] LABS: ALB/GLOB RATIO 1.4 (1.1-1.8); ALKALINE PHOSPHATASE 63 U/L (38-126); ALT/SGPT 25 U/L (7-56); AST/SGOT 34 U/L (14-36); BILIRUBIN,TOTAL 0.9 mg/dL (0.2-1.3); BLOOD UREA NITROGEN 15 mg/dL (7-21); CALCIUM 8.8 mg/dL (8.4-10.5); CARBON DIOXIDE 33 mmol/L (21-33); CHLORIDE 95 mmol/L (98-107); GFR AFRICAN-AMERICAN 54; GLUCOSE,RANDOM 124 mg/dL (70-110); SODIUM 140 mmol/L (132-148); TOTAL PROTEIN 7.7 g/dL (5.8-8.3)
[2017-04-12] MEDS ORDERED: Potassium Chloride 20 mEq ER Tab PO STA (11:44)
[2017-04-12 11:45] LABS: POTASSIUM 2.5 mmol/L (3.6-5.0)
[2017-04-12 11:56] LABS: URINE BILIRUBIN NEGATIVE (NEGATIVE); URINE BLOOD SMALL (NEGATIVE); URINE GLUCOSE (UA) 500 mg/dL (NEGATIVE); URINE KETONE NEGATIVE (NEGATIVE); URINE LEUKOCYTE ESTERASE LARGE Leu/uL (NEGATIVE); URINE PROTEIN 100 mg/dL (<30 mg/dL); URINE UROBILINOGEN 0.2 E.U./dL (<1 E.U./dL)
[2017-04-12 11:57] LABS: URINE APPEARANCE CLEAR (CLEAR); URINE COLOR YELLOW (YELLOW)
[2017-04-12 12:01] LABS: TROPONIN I < 0.01 ng/mL
[2017-04-12 12:23] LABS: URINE AMORPHOUS SEDIMENT FEW; URINE BACTERIA LARGE (NEG); URINE EPITHELIAL CELLS MANY /hpf (0-5); URINE RBC 15 - 20 /hpf (0-2); URINE WBC 25 - 30 /hpf (0-6)
[2017-04-12] MEDS ORDERED: cefTRIAXone 1 gm 1 GM/100 ML BAG IVPB STA (12:24)
--- NOTE | 2017-04-12 12:37 | CT ---
PROCEDURE: CT HEAD WITHOUT CONTRAST. HISTORY: Dizziness/loss of balance COMPARISON: None available. TECHNIQUE: Axial computed tomography images were obtained through the head/brain without intravenous contrast. Radiation dose: Total exam DLP = 681 mGy-cm. This CT exam was performed using one or more of the following dose reduction techniques: Automated exposure control, adjustment of the mA and/or kV according to patient size, and/or use of iterative reconstruction technique. FINDINGS: HEMORRHAGE: No intracranial hemorrhage. BRAIN: No mass effect or edema. No atrophy or chronic microvascular ischemic changes. Few punctate sub mm bilateral basal ganglionic calcifications noted VENTRICLES: Unremarkable. No hydrocephalus. CALVARIUM: Unremarkable. PARANASAL SINUSES: Unremarkable as visualized. No significant inflammatory changes. MASTOID AIR CELLS: Unremarkable as visualized. No inflammatory changes. OTHER FINDINGS: Few vertebrobasilar and supraclinoid arterial punctate calcifications noted IMPRESSION: No intracranial hemorrhage or mass effect. Trace punctate arterial atherosclerotic like calcifications
--- NOTE | 2017-04-12 14:08 | CP.PCM.CON ---
<Usha Root - Last Filed: 04/12/17 19:51> History of Present Illness - History of Present Illness History of Present Illness: Neurology Consult for Av Duarte PGY2 Reason for consult: Dizziness This is a 66Y F with PMH HTN, CHF, DM, asthma, CAD s/p stent and possible TIA who came to ED for dizziness and headache. Upon interview, patient forgot why she came to the hospital even though she is A&O x 3. History obtained from ED. Patient felt dizzy this AM with headache. The headache is described in the temporal region of her head bilaterally. It was not relieved with OTC pain medication and she does not have any associated aura such as vision changes, phonophobia, or photophobia. At the time when she felt dizzy that is more described as lightheaded rather than the room spinning. She denies having falls , loss of consciousness, weakness, vision changes, CP, SOB, numbness/tingling, tongue biting or slurred speech. Patient also reports she has been more forgetful over the past few months and has been increasing in frequency over time. She states sometimes she will be driving and forget where she is going. She will have to leave notes for herself to remind herself to do things. She does have strong family history of Alzheimer 's and lives by herself. She has not been forgetting to eat or pay the bills. She also complains of intermittent watery, non-bloody diarrhea for several months. She has not seen anyone for this. The diarrhea does wake her up in her sleep. She states she has had a 20lb unintentional weight loss over the past month or so. She denies dark colored stool and [place] [facility] [place] She denies any recent hospitalizations or antibiotic use. PMH: HTN, CHF, DM, asthma, CAD, possible TIA, and mood disorder PSH: Gastric bypass, cardiac cath Home meds: As per MAR All: NKDA SH: Former smoker, drinks socially and denies drug use. Pt lives alone FH: Alzheimer's in mother and aunt Review of Systems - Review of Systems All systems: reviewed and no additional remarkable complaints except Review of Systems: + headache, dizzy, diarrhea, weight loss Past Patient History - Infectious Disease Hx of Infectious Diseases: None - Tetanus Immunizations Tetanus Immunization: Unknown - Past Social History Smoking Status: Former Smoker Alcohol: Social Drugs: Denies Home Situation {Lives}: Alone - CARDIAC Hx Cardiac Disorders: Yes Hx Congestive Heart Failure: Yes Hx Hypertension: Yes Hx Pacemaker: No - PULMONARY Hx Respiratory Disorders: Yes Hx Asthma: Yes - NEUROLOGICAL Hx Neurological Disorder: No Hx Paralysis: No - HEENT Hx HEENT Problems: Yes Other/Comment: glasses - RENAL Hx Chronic Kidney Disease: No - ENDOCRINE/METABOLIC Hx Endocrine Disorders: Yes Hx Diabetes Mellitus Type 2: Yes - HEMATOLOGICAL/ONCOLOGICAL Hx Blood Disorders: No Hx Blood Transfusions: No - INTEGUMENTARY Hx Dermatological Problems: No - MUSCULOSKELETAL/RHEUMATOLOGICAL Hx Musculoskeletal Disorders: Yes - GASTROINTESTINAL Hx Gastrointestinal Disorders: No - GENITOURINARY/GYNECOLOGICAL Hx Genitourinary Disorders: No - PSYCHIATRIC Hx Psychophysiologic Disorder: No Hx Emotional Abuse: No Hx Physical Abuse: No Hx Substance Use: No - SURGICAL HISTORY Hx Cardiac Catheterization: Yes Hx Coronary Stent: Yes - ANESTHESIA Hx Anesthesia: Yes Hx Anesthesia Reactions: No Hx Malignant Hyperthermia: No Meds Allergies/Adverse Reactions: Allergies Allergy/AdvReac Type Severity Reaction Status Date / Time No Known Allergies Allergy Verified 04/12/17 15:36 - Medications Medications: Current Medications Potassium Chloride (Potassium Chloride 10 Meq/100 Ml) 10 meq in 100 mls @ 100 mls/hr IVPB Q2H [facility] Stop: 04/12/17 14:44 Last Admin: 04/12/17 13:51 Dose: 100 mls/hr Physical Exam - Constitutional Appears: No Acute Distress - Head Exam Head Exam: ATRAUMATIC, NORMAL INSPECTION, NORMOCEPHALIC - Eye Exam Eye Exam: Normal appearance, PERRL Pupil Exam: NORMAL ACCOMODATION, PERRL - ENT Exam ENT Exam: Mucous Membranes Moist - Neck Exam Neck exam: Positive for: Normal Inspection - Respiratory Exam Respiratory Exam: Clear to Auscultation Bilateral, NORMAL BREATHING PATTERN. absent: Rales, Rhonchi, Wheezes - Cardiovascular Exam Cardiovascular Exam: REGULAR RHYTHM, +S1, +S2. absent: Gallop, Rubs, Systolic Murmur - GI/Abdominal Exam GI & Abdominal Exam: Normal Bowel Sounds, Soft. absent: Guarding, Rebound, Rigid, Tenderness - Extremities Exam Extremities exam: Positive for: normal inspection. Negative for: calf tenderness, pedal edema - Neurological Exam Neurological exam: Alert, CN II-XII Intact, Normal Gait, Oriented x3 - Psychiatric Exam Psychiatric exam: Normal Affect, Normal Mood - Skin Skin Exam: Dry, Intact, Normal Color, Warm Results - Vital Signs Recent Vital Signs: Last Vital Signs Temp 97.6 F 04/12/17 12:23 Pulse 85 04/12/17 12:23 Resp 15 04/12/17 12:23 BP 139/77 04/12/17 12:23 Pulse Ox 100 04/12/17 12:23 - Labs Result Diagrams: 04/12/17 11:16 04/12/17 11:16 Assessment & Plan - Assessment and Plan (Free Text) Assessment: This is a 66Y F with PMH HTN, CHF, DM, asthma, CAD s/p stent and possible TIA who came to ED for dizziness and headache. Head CT was noted to be negative for acute pathology. Dizziness and headache can be secondary to dehydration from diarrhea. Patient also noted to be hypokalemic on admission. Headache is described as tension headache rather than migraine. Plan: - Recommend adequate hydration - Continue to monitor electrolytes - Tylenol prn headache - Recommend GI work up for diarrhea and unintentional weight loss - Will perform MOCA to evaluate for cognitive dysfunction - Continue Lipitor and Plavix Case seen, discussed and reviewed with Dr. Card. Av Root PGY2 - Date & Time Date: 04/12/17 Time: 15:44 <Dhaval Card - Last Filed: 04/13/17 13:49> Meds - Medications Medications: Current Medications Acetaminophen/Butalbital/Caffeine (Fioricet) 1 tab PO Q4H PRN PRN Reason: Headache Atorvastatin Calcium (Lipitor) 80 mg PO DAILY [facility] Last Admin: 04/13/17 09:49 Dose: 80 mg Bupropion HCl (Wellbutrin Xl) 150 mg PO DAILY [facility] Last Admin: 04/13/17 09:50 Dose: 150 mg Clopidogrel Bisulfate (Plavix) 75 mg PO DAILY [facility] Last Admin: 04/13/17 09:49 Dose: 75 mg Digoxin (Lanoxin) 0.125 mg PO 1400 [facility] Duloxetine HCl (Cymbalta) 20 mg PO DAILY [facility] Last Admin: 04/13/17 09:49 Dose: 20 mg Furosemide (Lasix) 40 mg PO DAILY [facility] Last Admin: 04/13/17 09:50 Dose: 40 mg Hydrochlorothiazide (Hydrodiuril) 25 mg PO DAILY [facility] Last Admin: 04/13/17 09:50 Dose: 25 mg Insulin Human Regular (Humulin R Low) 0 units SC ACHS [facility] PRN Reason: Protocol Last Admin: 04/13/17 12:05 Dose: Not Given Lidocaine (Lidoderm) 1 ea TOP DAILY [facility] Last Admin: 04/13/17 09:50 Dose: 1 ea Lisinopril (Zestril) 20 mg PO DAILY [facility] Last Admin: 04/13/17 09:49 Dose: 20 mg Metformin HCl (Glucophage) 500 mg PO BID [facility] Last Admin: 04/13/17 09:54 Dose: Not Given Mirtazapine (Remeron) 15 mg PO HS PRN PRN Reason: Insomnia Last Admin: 04/12/17 21:47 Dose: 15 mg Propranolol HCl (Inderal) 40 mg PO DAILY [facility] Last Admin: 04/13/17 09:49 Dose: 40 mg Results - Vital Signs Recent Vital Signs: Last Vital Signs Temp 98.4 F 04/13/17 11:47 Pulse 61 04/13/17 11:47 Resp 20 04/13/17 11:47 BP 143/74 04/13/17 11:47 Pulse Ox 98 04/13/17 06:00 - Labs Result Diagrams: 04/13/17 06:00 04/13/17 06:00 Labs: Laboratory Results - last 24 hr 04/12/17 04/12/17 04/13/17 17:38 21:05 06:00 WBC RBC Hgb Hct MCV MCH MCHC RDW Plt Count MPV Sodium 142 Potassium 2.7 L* Chloride 102 Carbon Dioxide 31 Anion Gap 12 BUN 12 Creatinine 1.1 Est GFR ( Amer) > 60 Est GFR (Non-Af Amer) 50 POC Glucose (mg/dL) 108 97 Random Glucose 104 Hemoglobin A1c Calcium 8.6 Lactate Dehydrogenase 428 Total Creatine Kinase 113 Troponin I < 0.01 Triglycerides 79 Cholesterol 154 LDL Cholesterol Direct 53 HDL Cholesterol 86 H TSH 3rd Generation 04/13/17 04/13/17 04/13/17 06:00 06:00 06:00 WBC 4.0 L D RBC 3.31 L Hgb 11.0 L Hct 32.1 L MCV 97.0 MCH 33.2 MCHC 34.3 RDW 14.5 Plt Count 147 MPV 9.2 Sodium Potassium Chloride Carbon Dioxide Anion Gap BUN Creatinine Est GFR ( Amer) Est GFR (Non-Af Amer) POC Glucose (mg/dL) Random Glucose Hemoglobin A1c 5.6 Calcium Lactate Dehydrogenase Total Creatine Kinase Troponin I Triglycerides Cholesterol LDL Cholesterol Direct HDL Cholesterol TSH 3rd Generation 0.71 04/13/17 04/13/17 04/13/17 09:33 11:30 11:43 WBC RBC Hgb Hct MCV MCH MCHC RDW Plt Count MPV Sodium Potassium Chloride Carbon Dioxide Anion Gap BUN Creatinine Est GFR ( Amer) Est GFR (Non-Af Amer) POC Glucose (mg/dL) 134 H 94 Random Glucose Hemoglobin A1c Calcium Lactate Dehydrogenase 496 Total Creatine Kinase Troponin I Triglycerides Cholesterol LDL Cholesterol Direct HDL Cholesterol TSH 3rd Generation Attending/Attestation - Attestation I have personally seen and examined this patient.: Yes I have fully participated in the care of the patient.: Yes I have reviewed all pertinent clinical information: Yes
[2017-04-12] MEDS ORDERED: Pneumococcal 23-Valent Vaccine IM ONE (17:36)
--- NOTE | 2017-04-13 01:55 | CARD ---
APPROVED REPORT EKG Measurement Heart [id number] <Conclusion> Sinus rhythm with frequent premature ventricular complexes Prolonged QT Abnormal ECG
[2017-04-13 06:22] LABS: HEMATOCRIT 32.1 % (36.0-48.0); MEAN CORPUSCULAR HEMOGLOBIN 33.2 pg (25.0-35.0); MEAN CORPUSCULAR HGB CONC 34.3 g/dl (31.0-37.0); MEAN PLATELET VOLUME 9.2 fl (7.0-11.0); RED CELL DISTRIBUTION WIDTH 14.5 % (11.5-14.5)
--- NOTE | 2017-04-13 06:47 | HP ---
CHIEF COMPLAINT: Dizziness and lightheadedness. HISTORY OF PRESENT ILLNESS: Ms. Cast is a 66-year-old female with past medical history for congestive heart failure, hypertension, diabetes mellitus, coronary artery disease, asthma, came to the emergency room with chief complaint of dizziness and lightheadedness. She reports that earlier this morning, she sat up from lying down and began feeling a loss of balance. She thought that this feeling might have been due to headache, so she took a medication, with no relief. She has had brief episode of similar symptoms over the past few weeks that have all been mild and self limiting. She denies any associated syncope, loss of consciousness. No blurring of vision. No numbness. No weakness of the extremities. She also endorse that she had intermittent nonbloody and nonmalodorous, diarrhea with associated episodes of fecal incontinence. She reports that the diarrhea has been more frequent than solid formed stools and that is sometimes wakes her up from sleep. She denies any associated fever, chills. No nausea or vomiting. No dysuria. No urinary incontinence. No use of antibiotics. No recent contact with sick people. No swelling of the leg. PAST MEDICAL HISTORY: Congestive heart failure, hypertension, respiratory disease, asthma, diabetes mellitus type 2, history of coronary artery disease, and cardiac stenting. FAMILY HISTORY: Father and mother, noncontributory. SOCIAL HISTORY: Former smoker. Alcohol minimal socially. Substance abuse: No. ALLERGIES: THE PATIENT IS NOT ALLERGIC TO ANY MEDICATIONS. HOME MEDICATIONS: Oxycodone, Lasix, Valium, Lipitor, Cymbalta, lisinopril, bupropion, digoxin, metformin, and propranolol. REVIEW OF SYSTEMS: The patient seen and examined on the bedside in her room in the telemetry. Feeling little bit better. Lightheadedness is better. Still having diarrhea. No fever, no chills. No swelling of the legs. No hematuria, no hematochezia. PHYSICAL EXAMINATION: VITAL SIGNS: Temperature 97.4, pulse 102, blood pressure 146/81, respiratory rate 17. HEENT: Head, normocephalic, atraumatic. Eyes, PERRLA. Extraocular muscles intact. Conjunctivae clear. Nose patent. Mucous membranes moist. NECK: Supple. No carotid bruits. No JVD or thyromegaly. CHEST: Bilaterally symmetrical. HEART: S1 and S2, positive. LUNGS: Clear to auscultation. ABDOMEN: Soft. Bowel sounds positive. No organomegaly. EXTREMITIES: No edema, no cyanosis. NEUROLOGIC: The patient is awake, alert. Moving all 4 extremities. No focal deficit. LABORATORY DATA: White blood cell is 7.5, hemoglobin 12.3, hematocrit 35.5, and platelets 167. Sodium 140, potassium 2.5, BUN 15, creatinine 1.2, glucose 153, magnesium 1.9, troponin less than 0.01. ASSESSMENT AND PLAN: Ms. Serene Daugherty is a 66-year-old lady with hypokalemia replaced, hyperglycemia, proteinuria, glucosuria, hematuria, urinary tract infection. Digoxin level is 0.4. Seen by Neurologist. CAT scan of the head done. History of hypertension, congestive heart failure, diabetes mellitus, asthma, coronary artery disease, status post cardiac stenting, history of transient ischemia attack, came with dizziness and headache. CAT scan of the head was negative for acute pathology. The patient has diarrhea even stool incontinence once a while, may be that dizziness and headache is due to dehydration from diarrhea. Hypokalemia could be due to diarrhea. According to the patient's headache, we described as transient headache rather than migraine. Recommending adequate hydration and GI evaluation, correcting electrolyte imbalance, Tylenol for headache. According to the patient, she has history of anxiety and hip pain and knee pain. I will give Lidoderm patch. According to the patient, she has history of unintentional weight loss and diarrhea, will call consult of GI. According to Neurology, they will perform MOCA to evaluate for cognitive dysfunction. Continue Lipitor, Plavix and/or other medications. Discussion done with the patient. Gastrointestinal and deep venous thrombosis prophylaxis. We will followup. Fariha Olvera MD MTDHaris
[2017-04-13 06:54] LABS: BLOOD UREA NITROGEN 12 mg/dL (7-21); CALCIUM 8.6 mg/dL (8.4-10.5); CARBON DIOXIDE 31 mmol/L (21-33); CHLORIDE 102 mmol/L (98-107); CHOLESTEROL 154 mg/dL (130-200); GFR AFRICAN-AMERICAN > 60; GLUCOSE,RANDOM 104 mg/dL (70-110); SODIUM 142 mmol/L (132-148)
[2017-04-13 07:00] LABS: POTASSIUM 2.7 mmol/L (3.6-5.0)
[2017-04-13 07:28] LABS: TROPONIN I < 0.01 ng/mL
[2017-04-13] MEDS: buPROPion 150 mg/24 Hours XL Tab PO SCH (09:50)
[2017-04-13] MEDS: Lidocaine 5% Patch TOP SCH (09:50)
--- NOTE | 2017-04-13 09:53 | CP.PCM.PN ---
Addendum entered and electronically signed by Usha Root DO 04/13/17 13: 42: Thank you for this consultation. Will sign off at this time. Please re-consult if needed. Patient can follow up as outpatient. Information added to d/c plan. Original Note: <Usha Root - Last Filed: 04/13/17 12:54> Subjective - Date & Time of Evaluation Date of Evaluation: 04/13/17 Time of Evaluation: 09:50 - Subjective Subjective: Neurology Progress Note for Av Duarte PGY2 Patient seen and examined at bedside. As per nursing, there were no acute overnight events. Patient was resting in bed comfortably this am. She is A&O x 3 , but is confused at times and forgets which exact hospital that she is at. As per nursing, she keeps thinking that she lost something and is intermittently confused. This morning she reports her diarrhea has improved. She denies CP, SOB , n/v, numbness/tingling, fever/chills, dizziness, headache, dysuria or hematuria. Objective - Vital Signs/Intake and Output Vital Signs (last 24 hours): Temp Pulse Resp BP Pulse Ox 98.0 F 78 20 144/71 98 04/13/17 06:00 04/13/17 06:00 04/13/17 06:00 04/13/17 06:00 04/13/17 06:00 Intake and Output: 04/13/17 04/13/17 06:59 18:59 Intake Total 240 Output Total 200 Balance 40 - Medications Medications: Current Medications Acetaminophen (Tylenol 325mg Tab) 650 mg PO Q4H PRN PRN Reason: Headache Atorvastatin Calcium (Lipitor) 80 mg PO DAILY [facility] Bupropion HCl (Wellbutrin Xl) 150 mg PO DAILY [facility] Clopidogrel Bisulfate (Plavix) 75 mg PO DAILY [facility] Digoxin (Lanoxin) 0.125 mg PO 1400 [facility] Duloxetine HCl (Cymbalta) 20 mg PO DAILY [facility] Furosemide (Lasix) 40 mg PO DAILY [facility] Hydrochlorothiazide (Hydrodiuril) 25 mg PO DAILY [facility] Potassium Chloride (Potassium Chloride 20 Meq/100 Ml) 20 meq in 100 mls @ 50 mls/hr IVPB Q2H [facility] Stop: 04/13/17 12:44 Insulin Human Regular (Humulin R Low) 0 units SC ACHS [facility] PRN Reason: Protocol Lidocaine (Lidoderm) 1 ea TOP DAILY [facility] Lisinopril (Zestril) 20 mg PO DAILY [facility] Metformin HCl (Glucophage) 500 mg PO BID [facility] Last Admin: 04/12/17 17:31 Dose: 500 mg Mirtazapine (Remeron) 15 mg PO HS PRN PRN Reason: Insomnia Last Admin: 04/12/17 21:47 Dose: 15 mg Propranolol HCl (Inderal) 40 mg PO DAILY [facility] - Labs Labs: 04/13/17 06:00 04/13/17 06:00 - Constitutional Appears: No Acute Distress - Head Exam Head Exam: ATRAUMATIC, NORMAL INSPECTION, NORMOCEPHALIC - Eye Exam Eye Exam: Normal appearance, PERRL Pupil Exam: NORMAL ACCOMODATION - ENT Exam ENT Exam: Mucous Membranes Moist - Respiratory Exam Respiratory Exam: Clear to Ausculation Bilateral, NORMAL BREATHING PATTERN. absent: Rales, Rhonchi, Wheezes - Cardiovascular Exam Cardiovascular Exam: REGULAR RHYTHM, +S1, +S2. absent: Gallop, Rubs - GI/Abdominal Exam GI & Abdominal Exam: Soft, Normal Bowel Sounds. absent: Rigid, Tenderness, Mass , Rebound - Extremities Exam Extremities Exam: Normal Inspection. absent: Calf Tenderness, Pedal Edema - Neurological Exam Neurological Exam: Alert, Awake, CN II-XII Intact, Normal Gait, Oriented x3 Neuro motor strength exam: Left Upper Extremity: 5, Right Upper Extremity: 5, Left Lower Extremity: 5, Right Lower Extremity: 5 - Psychiatric Exam Psychiatric exam: Normal Affect, Normal Mood - Skin Skin Exam: Dry, Intact, Normal Color, Warm Assessment and Plan - Assessment and Plan (Free Text) Assessment: This is a 66Y F with PMH HTN, CHF, DM, asthma, CAD s/p stent and possible TIA who came to ED for dizziness and headache. Head CT was noted to be negative for acute pathology. Dizziness and headache can be secondary to dehydration from diarrhea. Patient also noted to be hypokalemic on admission. Headache is described as tension headache rather than migraine which is intermittent. For confusion, patient does have a psych history with inpatient admissions. Dementia is part of the differential as well as a possible psychological component. Plan: - Recommend electrolyte replacement and monitoring - Recommend adequate hydration - Recommend psychiatric evaluation - Fiorecet prn headache - Continue Plavix and Lipitor - Pt refusing to complete MOCA exam at this time. Half was completed which already showed some cognitive impairment - Recommend outpatient workup for possible dementia Case seen, discussed and reviewed with Dr. Card. Av Root PGY2 <Dhaval Card - Last Filed: 04/13/17 13:51> Objective - Vital Signs/Intake and Output Vital Signs (last 24 hours): Temp Pulse Resp BP Pulse Ox 98.4 F 61 20 143/74 98 04/13/17 11:47 04/13/17 11:47 04/13/17 11:47 04/13/17 11:47 04/13/17 06:00 Intake and Output: 04/13/17 04/13/17 06:59 18:59 Intake Total 240 Output Total 200 Balance 40 - Medications Medications: Current Medications Acetaminophen/Butalbital/Caffeine (Fioricet) 1 tab PO Q4H PRN PRN Reason: Headache Atorvastatin Calcium (Lipitor) 80 mg PO DAILY [facility] Last Admin: 04/13/17 09:49 Dose: 80 mg Bupropion HCl (Wellbutrin Xl) 150 mg PO DAILY [facility] Last Admin: 04/13/17 09:50 Dose: 150 mg Clopidogrel Bisulfate (Plavix) 75 mg PO DAILY [facility] Last Admin: 04/13/17 09:49 Dose: 75 mg Digoxin (Lanoxin) 0.125 mg PO 1400 [facility] Duloxetine HCl (Cymbalta) 20 mg PO DAILY [facility] Last Admin: 04/13/17 09:49 Dose: 20 mg Furosemide (Lasix) 40 mg PO DAILY [facility] Last Admin: 04/13/17 09:50 Dose: 40 mg Hydrochlorothiazide (Hydrodiuril) 25 mg PO DAILY [facility] Last Admin: 04/13/17 09:50 Dose: 25 mg Insulin Human Regular (Humulin R Low) 0 units SC ACHS [facility] PRN Reason: Protocol Last Admin: 04/13/17 12:05 Dose: Not Given Lidocaine (Lidoderm) 1 ea TOP DAILY [facility] Last Admin: 04/13/17 09:50 Dose: 1 ea Lisinopril (Zestril) 20 mg PO DAILY [facility] Last Admin: 04/13/17 09:49 Dose: 20 mg Metformin HCl (Glucophage) 500 mg PO BID [facility] Last Admin: 04/13/17 09:54 Dose: Not Given Mirtazapine (Remeron) 15 mg PO HS PRN PRN Reason: Insomnia Last Admin: 04/12/17 21:47 Dose: 15 mg Propranolol HCl (Inderal) 40 mg PO DAILY [facility] Last Admin: 04/13/17 09:49 Dose: 40 mg - Labs Labs: 04/13/17 06:00 04/13/17 06:00 Attending/Attestation - Attestation I have personally seen and examined this patient.: Yes I have fully participated in the care of the patient.: Yes I have reviewed all pertinent clinical information, including history, physical exam and plan: Yes
--- NOTE | 2017-04-13 11:44 | CP.PCM.CON ---
<Lissa Hearn - Last Filed: 04/13/17 11:42> History of Present Illness - History of Present Illness History of Present Illness: Patient was seen and examined at the bedside earlier this morning, the chart was reviewed. Request for GI consult is for weight loss and diarrhea. HPI: This is a 66-year-old female with a past medical history of diabetes mellitus, gastric bypass, mood disorder, hypertension, and coronary artery disease , history of cardiac catheterization on Plavix went to the emergency room with complaints of dizziness and headache. The patient headache was not relieved with OTC pain medication, complaint of dizziness and lightheadedness. Patient denies falls, loss of consciousness weakness shortness of breath, or chest pain. Patient complain of noticing being forgetful, there is a strong history of Alzheimer's in her family. The patient did complain of a 20 pound weight loss in about a month and a half, she does report having good appetite, no complaints of nausea, vomiting, or abdominal pain, or dysphagia. She also complains of diarrhea for the past few months, occasionally complains of sudden onset. Denies any melena or bright red blood per rectum. She did have colonoscopy many years ago [facility] [place], never had upper endoscopy. Past medical history is hypertension, diabetes mellitus, asthma, CHF, coronary artery disease with cardiac catheterization, TIA, we disorder Past surgical history: Gastric bypass, cardiac catheterization, colonoscopy many years ago at [facility] [place] Family history: Alzheimer's Disease (mom/aunt) Allergies: No known drug allergies Social history: Former smoker, drinks alcohol socially, denies substance abuse Medications: Reviewed as per MAR ROS: Systems reviewed with positive finding see HPI. Past Patient History - Infectious Disease Hx of Infectious Diseases: None - Tetanus Immunizations Tetanus Immunization: Unknown - Past Social History Smoking Status: Former Smoker Alcohol: Social Drugs: Denies Home Situation {Lives}: Alone - CARDIAC Hx Cardiac Disorders: Yes Hx Congestive Heart Failure: Yes Hx Hypertension: Yes Hx Pacemaker: No - PULMONARY Hx Respiratory Disorders: Yes Hx Asthma: Yes - NEUROLOGICAL Hx Neurological Disorder: No Hx Paralysis: No - HEENT Hx HEENT Problems: Yes Other/Comment: glasses - RENAL Hx Chronic Kidney Disease: No - ENDOCRINE/METABOLIC Hx Endocrine Disorders: Yes Hx Diabetes Mellitus Type 2: Yes - HEMATOLOGICAL/ONCOLOGICAL Hx Blood Disorders: No Hx Blood Transfusions: No - INTEGUMENTARY Hx Dermatological Problems: No - MUSCULOSKELETAL/RHEUMATOLOGICAL Hx Musculoskeletal Disorders: Yes - GASTROINTESTINAL Hx Gastrointestinal Disorders: No - GENITOURINARY/GYNECOLOGICAL Hx Genitourinary Disorders: No - PSYCHIATRIC Hx Psychophysiologic Disorder: No Hx Emotional Abuse: No Hx Physical Abuse: No Hx Substance Use: No - SURGICAL HISTORY Hx Cardiac Catheterization: Yes Hx Coronary Stent: Yes - ANESTHESIA Hx Anesthesia: Yes Hx Anesthesia Reactions: No Hx Malignant Hyperthermia: No Meds Allergies/Adverse Reactions: Allergies Allergy/AdvReac Type Severity Reaction Status Date / Time No Known Allergies Allergy Verified 04/12/17 15:36 - Medications Medications: Current Medications Acetaminophen/Butalbital/Caffeine (Fioricet) 1 tab PO Q4H PRN PRN Reason: Headache Atorvastatin Calcium (Lipitor) 80 mg PO DAILY [facility] Last Admin: 04/13/17 09:49 Dose: 80 mg Bupropion HCl (Wellbutrin Xl) 150 mg PO DAILY [facility] Last Admin: 04/13/17 09:50 Dose: 150 mg Clopidogrel Bisulfate (Plavix) 75 mg PO DAILY [facility] Last Admin: 04/13/17 09:49 Dose: 75 mg Digoxin (Lanoxin) 0.125 mg PO 1400 [facility] Duloxetine HCl (Cymbalta) 20 mg PO DAILY [facility] Last Admin: 04/13/17 09:49 Dose: 20 mg Furosemide (Lasix) 40 mg PO DAILY [facility] Last Admin: 04/13/17 09:50 Dose: 40 mg Hydrochlorothiazide (Hydrodiuril) 25 mg PO DAILY [facility] Last Admin: 04/13/17 09:50 Dose: 25 mg Potassium Chloride (Potassium Chloride 20 Meq/100 Ml) 20 meq in 100 mls @ 50 mls/hr IVPB Q2H [facility] Stop: 04/13/17 12:44 Last Admin: 04/13/17 10:26 Dose: 50 mls/hr Insulin Human Regular (Humulin R Low) 0 units SC ACHS [facility] PRN Reason: Protocol Lidocaine (Lidoderm) 1 ea TOP DAILY [facility] Last Admin: 04/13/17 09:50 Dose: 1 ea Lisinopril (Zestril) 20 mg PO DAILY [facility] Last Admin: 04/13/17 09:49 Dose: 20 mg Metformin HCl (Glucophage) 500 mg PO BID [facility] Last Admin: 04/13/17 09:54 Dose: Not Given Mirtazapine (Remeron) 15 mg PO HS PRN PRN Reason: Insomnia Last Admin: 10/04/17 21:47 Dose: 15 mg Propranolol HCl (Inderal) 40 mg PO DAILY [facility] Last Admin: 04/13/17 09:49 Dose: 40 mg Physical Exam - Constitutional Appears: No Acute Distress - Head Exam Head Exam: NORMOCEPHALIC - Eye Exam Eye Exam: Normal appearance. absent: Scleral icterus - ENT Exam ENT Exam: Mucous Membranes Moist - Neck Exam Neck exam: Positive for: Normal Inspection - Respiratory Exam Respiratory Exam: Decreased Breath Sounds, NORMAL BREATHING PATTERN. absent: Rales, Wheezes, Respiratory Distress - Cardiovascular Exam Cardiovascular Exam: +S1, +S2 - GI/Abdominal Exam GI & Abdominal Exam: Normal Bowel Sounds, Soft. absent: Guarding, Rebound, Tenderness - Extremities Exam Extremities exam: Positive for: normal inspection, pedal pulses present. Negative for: calf tenderness, pedal edema - Neurological Exam Neurological exam: Alert, Oriented x3 - Skin Skin Exam: Dry, Warm Results - Vital Signs Recent Vital Signs: Last Vital Signs Temp 98.0 F 04/13/17 06:00 Pulse 96 H 04/13/17 09:49 Resp 20 04/13/17 06:00 BP 135/67 04/13/17 09:50 Pulse Ox 98 04/13/17 06:00 - Labs Result Diagrams: 04/13/17 06:00 04/13/17 06:00 Labs: Laboratory Results - last 24 hr 04/12/17 04/12/17 04/13/17 17:38 21:05 06:00 WBC RBC Hgb Hct MCV MCH MCHC RDW Plt Count MPV Sodium 142 Potassium 2.7 L* Chloride 102 Carbon Dioxide 31 Anion Gap 12 BUN 12 Creatinine 1.1 Est GFR ( Amer) > 60 Est GFR (Non-Af Amer) 50 POC Glucose (mg/dL) 108 97 Random Glucose 104 Calcium 8.6 Lactate Dehydrogenase 428 Total Creatine Kinase 113 Troponin I < 0.01 Triglycerides 79 Cholesterol 154 LDL Cholesterol Direct 53 HDL Cholesterol 86 H TSH 3rd Generation 04/13/17 04/13/17 04/13/17 06:00 06:00 09:33 WBC 4.0 L D RBC 3.31 L Hgb 11.0 L Hct 32.1 L MCV 97.0 MCH 33.2 MCHC 34.3 RDW 14.5 Plt Count 147 MPV 9.2 Sodium Potassium Chloride Carbon Dioxide Anion Gap BUN Creatinine Est GFR ( Amer) Est GFR (Non-Af Amer) POC Glucose (mg/dL) 134 H Random Glucose Calcium Lactate Dehydrogenase Total Creatine Kinase Troponin I Triglycerides Cholesterol LDL Cholesterol Direct HDL Cholesterol TSH 3rd Generation 0.71 Assessment & Plan - Assessment and Plan (Free Text) Assessment: Assessment: Hypokalemia Dizziness Weight loss Chronic diarrhea History of gastric bypass Coronary artery disease status post cardiac catheterization, on Plavix. Hypertension Diabetes mellitus Plan: Request CT scan abdomen and pelvis with IV and oral contrast in am Requests celiac disease panel Check B12, folate, and LDH Diet as tolerated Continue monitor electrolytes and replete potassium as necessary Continued GI and DVT prophylaxis Cardiology and neurology follow-up Will hold metformin today and for [address] scan, patient is getting ct scan w/IV contrast, patient's last dose was yesterday evening, patient refused today's morning dose. Patient is on insulin coverage. Would benefit from endoscopy and colonoscopy when optimal. Thank you for this consult and for allowing us to participate in your patient's care, further recommendations based upon clinical course. Seen and discussed with Dr. Boyer. <Gee Boyer V - Last Filed: 04/13/17 21:23> Meds - Medications Medications: Current Medications Acetaminophen/Butalbital/Caffeine (Fioricet) 1 tab PO Q4H PRN PRN Reason: Headache Atorvastatin Calcium (Lipitor) 80 mg PO DAILY [facility] Last Admin: 04/13/17 09:49 Dose: 80 mg Bupropion HCl (Wellbutrin Xl) 150 mg PO DAILY [facility] Last Admin: 04/13/17 09:50 Dose: 150 mg Clopidogrel Bisulfate (Plavix) 75 mg PO DAILY [facility] Last Admin: 04/13/17 09:49 Dose: 75 mg Digoxin (Lanoxin) 0.125 mg PO 1400 [facility] Last Admin: 04/13/17 14:59 Dose: 0.125 mg Duloxetine HCl (Cymbalta) 20 mg PO DAILY [facility] Last Admin: 04/13/17 09:49 Dose: 20 mg Furosemide (Lasix) 40 mg PO DAILY [facility] Last Admin: 04/13/17 09:50 Dose: 40 mg Hydrochlorothiazide (Hydrodiuril) 25 mg PO DAILY [facility] Last Admin: 04/13/17 09:50 Dose: 25 mg Insulin Human Regular (Humulin R Low) 0 units SC [facility] PRN Reason: Protocol Last Admin: 04/13/17 16:38 Dose: Not Given Lidocaine (Lidoderm) 1 ea TOP DAILY [facility] Last Admin: 04/13/17 09:50 Dose: 1 ea Lisinopril (Zestril) 20 mg PO DAILY [facility] Last Admin: 04/13/17 09:49 Dose: 20 mg Metformin HCl (Glucophage) 500 mg PO BID [facility] Last Admin: 04/13/17 09:54 Dose: Not Given Mirtazapine (Remeron) 15 mg PO HS PRN PRN Reason: Insomnia Last Admin: 04/12/17 21:47 Dose: 15 mg Propranolol HCl (Inderal) 40 mg PO DAILY [facility] Last Admin: 04/13/17 09:49 Dose: 40 mg Results - Vital Signs Recent Vital Signs: Last Vital Signs Temp 97 F L 04/13/17 19:34 Pulse 63 04/13/17 19:34 Resp 20 04/13/17 19:34 BP 135/78 04/13/17 19:34 Pulse Ox 97 04/13/17 19:34 - Labs Result Diagrams: 04/13/17 06:00 04/13/17 06:00 Labs: Laboratory Results - last 24 hr 04/13/17 16:11 POC Glucose (mg/dL) 148 H Attending/Attestation - Attestation I have personally seen and examined this patient.: Yes I have fully participated in the care of the patient.: Yes I have reviewed all pertinent clinical information: Yes Notes (Text): This is an addendum to GI progress report dictated by Lissa Hearn APN.The patient was seen and examined earlier. Medical records, lab studies, imagings were reviewed. Last 24 hours events reviewed. Agreed with the above treatment plan as outlined in Lissa Hearn APN's notes the with the addition of the following History of significant weight loss etiology unclear History of status post gastric bypass Last colonoscopy few years ago No complaints of abdominal pain On examination abdomen soft no tenderness Follow-up the workup ordered Follow-up the CAT scan. We'll hold off metformin for now 04/13/17 21:21
[2017-04-13] MEDS: Insulin Reg-LOW-Coverage SC SCH ×3 (12:05→21:51)
[2017-04-13] MEDS: Digoxin 125 mcg (0.125 mg) Tab PO SCH ×2 (14:16→14:59)
[2017-04-13 17:24] LABS: FOLATE 7.7 ng/mL
--- NOTE | 2017-04-14 01:46 | PN ---
DATE: SUBJECTIVE: The patient is a 66-year-old female. The patient is seen and examined at the bedside, looking comfortable, complaining about abdominal pain. No nausea, vomiting, diarrhea. No hematuria or hematochezia. No chest pain. No palpitations. No headache. No dizziness. No swelling of the leg, still coughing. No shortness of breath. GI and Pulmonary is on the case. PHYSICAL EXAMINATION VITAL SIGNS: Temperature is 97, pulse is 63, blood pressure 135/78, respiratory rate 20. HEENT: Head is normocephalic and atraumatic. Eyes; PERRLA. Extraocular muscles are intact. Conjunctivae are clear. Nose is patent. NECK: Supple. No carotid bruits. No JVD or thyromegaly. CHEST: Bilaterally symmetrical. HEART: S1 and S2 positive. LUNGS: Clear to auscultation. ABDOMEN: Soft. Bowel sounds positive. No organomegaly. EXTREMITIES: No edema. No cyanosis. NEUROLOGICAL: The patient is awake and alert. Moving all 4 extremities. No focal deficits. MEDICATIONS: Cymbalta, Fioricet, Glucophage, insulin, Inderal, digoxin, furosemide, Lidoderm, Lipitor, Plavix, Remeron, Wellbutrin, and Zestril. LABORATORY DATA: White blood cells 4.0, hemoglobin 11.0, hematocrit 32.5, and platelets 147. ASSESSMENT AND PLAN: Ms. Serene Daugherty is a 66-year-old lady with leukopenia, anemia, hyperglycemia, vitamin B12 deficiency, proteinuria, glucosuria, hematuria, is seen by Gastrointestinal, Lissa Hearn, history of hypertension, osmolalities, asthma, congestive heart failure, coronary artery disease with cardiac catheterization, transient ischemic attack, now complaining about abdominal pain, history of hypokalemia, dizziness, weight loss, history of gastric bypass, chronic diarrhea acute on chronic. Repeat CAT of abdomen and pelvis with IV and oral contrast. Gastrointestinal is doing celiac disease panel. Diet as tolerated. Continue monitoring electrolytes. Cardiology and Neurology followup. Gastrointestinal hold metformin for [address] scan. The patient is getting CT scan with IV contrast, getting insulin coverage. We will benefit from endoscopy and colonoscopy when optimal as per Gastrointestinal, history of hypokalemia replaced, came with dizziness and headache. CAT scan of head is negative for acute pathology. May be dizziness and headache is secondary to dehydration and hypokalemia due to diarrhea. Stool sent for Clostridium difficile toxin colitis. Neurologist is on the case. Continue Plavix and Lipitor. We will follow up. Fariha Olvera MD MTDHaris
[2017-04-14] MEDS ORDERED: Barium Sulfate Susp 2.1% w/v, 2.0% w/w 450 mL Bottle PO ONE (08:23)
[2017-04-14] MEDS: Insulin Reg-LOW-Coverage SC SCH ×4 (09:39→22:28)
[2017-04-14] MEDS: Lidocaine 5% Patch TOP SCH (09:42)
[2017-04-14] MEDS: buPROPion 150 mg/24 Hours XL Tab PO SCH (09:43)
[2017-04-14 11:02] LABS: ALB/GLOB RATIO 1.4 (1.1-1.8); BILIRUBIN,TOTAL 0.9 mg/dL (0.2-1.3); CALCIUM 9.4 mg/dL (8.4-10.5); POTASSIUM 3.1 mmol/L (3.6-5.0); TOTAL PROTEIN 7.8 g/dL (5.8-8.3)
[2017-04-14] MEDS ORDERED: Potassium Chloride 20 mEq ER Tab PO ONE (13:24)
[2017-04-14] MEDS: Digoxin 125 mcg (0.125 mg) Tab PO SCH (14:41)
[2017-04-14] MEDS: Vancomycin 25 MG/ML PO SCH ×2 (18:29→21:45)
--- NOTE | 2017-04-14 20:02 | CT ---
PROCEDURE: CT Abdomen and Pelvis with contrast HISTORY: wt loss/diarrhea:on metformin request changed 04/14 COMPARISON: None. TECHNIQUE: Contrast dose: Radiation dose: Total exam DLP = mGy-cm. This CT exam was performed using one or more of the following dose reduction techniques: Automated exposure control, adjustment of the mA and/or kV according to patient size, and/or use of iterative reconstruction technique. FINDINGS: LOWER THORAX: Unremarkable. LIVER: Unremarkable. No gross lesion or ductal dilatation. GALLBLADDER AND BILE DUCTS: Unremarkable. PANCREAS: Unremarkable. No gross lesion or ductal dilatation. SPLEEN: Unremarkable. ADRENALS: Unremarkable. No mass. KIDNEYS AND URETERS: Unremarkable. No hydronephrosis. No solid mass. VASCULATURE: Unremarkable. No aortic aneurysm. BOWEL: Unremarkable. No obstruction. No gross mural thickening. Postoperative changes related to gastric bypass surgery. APPENDIX: Normal appendix. PERITONEUM: Unremarkable. No free fluid. No free air. LYMPH NODES: Unremarkable. No enlarged lymph nodes. BLADDER: Unremarkable. REPRODUCTIVE: Unremarkable. BONES: No acute fracture. OTHER FINDINGS: None. IMPRESSION: No significant or acute findings to account for/ related to the clinical presentation. Additional benign and/or incidental findings described above.
[2017-04-14] MEDS: Sodium Chloride 0.45% 1,000 ML IV SCH (22:02)
--- NOTE | 2017-04-14 22:14 | PN ---
DATE: 04/14/2017 SUBJECTIVE: This patient was seen and evaluated earlier. Discussed with the nursing staff. The patient still complains of loose bowel movements. PHYSICAL EXAMINATION VITAL SIGNS: Temperature is 97.6, pulse 73, blood pressure 120/76, respirations 20. HEENT: Atraumatic, anicteric. NECK: Supple. HEART: S1 and S2 heard. LUNGS: Bilateral air entry present. ABDOMEN: Soft. There is no mass palpable. No tenderness. EXTREMITIES: No edema. No cyanosis. LABORATORY DATA: Chemistry is essentially unremarkable. The patient has B12 deficiency level of 198, potassium 3.1 BUN 14 and creatinine 1.2. The patient did have a CT of the abdomen and pelvis with p.o. and IV contrast done, it was in view of the history of weight loss. It was reported as no acute findings. No lymph adenopathy. No mass or lesion. IMPRESSION: This 66-year-old patient with a history of diabetes mellitus, status post gastric bypass, coronary artery disease, admitted with significant weight loss 20 pounds, reduced p.o. intake, and history of episodes of diarrhea. The patient was found to have a B12 deficiency. CT of the abdomen and pelvis done with p.o. and IV contrast, which showed no acute pathology. The patient has diabetes mellitus. The patient was on metformin, which has been on hold. The patient had a C. diff antigen, which has been positive. In view of diarrhea and C. diff antigen positive we will treat like a C. diff with associated diarrhea. We will start the patient on p.o. vancomycin. The patient does have mild chronic kidney disease. The patient was on Lasix at home, which has been on hold. Metformin has been on hold in view of IV contrast.. We will start the patient on IV hydration follow up with renal function I will suggest further management based on the clinical course. Gee Boyer MD [facility]
--- NOTE | 2017-04-15 02:14 | PN ---
DATE: SUBJECTIVE: The patient is a 66-year-old female. The patient was seen and examined on the bedside, looks a little bit confused. No nausea, vomiting or diarrhea. No hematuria. No hematochezia. No swelling of the leg. No chest pain. No palpitation. No headache. No dizziness. No fever. No chills. PHYSICAL EXAMINATION VITAL SIGNS: Temperature 97.9, pulse 76, blood pressure 120/70, respiratory rate 20. HEENT: Head is normocephalic, atraumatic. Eyes; PERRLA. Extraocular muscles intact. Conjunctivae clear. Nose patent. Mucous membranes moist. NECK: Supple. No carotid bruits, JVD or thyromegaly. CHEST: Bilaterally symmetrical. HEART: S1 and S2 positive. LUNGS: Clear to auscultation. ABDOMEN: Soft. Bowel sounds positive. No organomegaly. EXTREMITIES: No edema. No cyanosis. NEUROLOGICAL: The patient is awake and alert. Moving all four extremities. No focal deficits. MEDICATIONS: Cymbalta, Fioricet, Glucophage, insulin, HydroDiuril, Inderal, Lanoxin, furosemide, Lidoderm, Lipitor, Plavix, Remeron, vancomycin, Wellbutrin, and Zestril. LABORATORY DATA: White blood cells 4.0, hemoglobin 11.0, hematocrit 32.1, platelets 147. Sodium 142, potassium 3.1, BUN 14, creatinine 1.2, glucose 118. ASSESSMENT AND PLAN: Ms. Willow Cast is a 66-year-old lady with hypokalemia, hyperglycemia, leukopenia, anemia, proteuria, glucosuria, hematuria, came with intractable diarrhea. CAT scan of the abdomen and pelvis done as ordered by gastrointestinal. Postoperative changes related to gastric bypass surgery is seen. No significant or acute findings to account or related to the clinical presentation. CAT scan of the head done reviewed by me. The patient has history of hypertension, diabetes mellitus, asthma, congestive heart failure, coronary artery disease, history of cardiac catheterization, transient ischemic attack, hypokalemia, replaced, history of unintentional weight loss, chronic diarrhea. Gastrointestinal requested celiac disease panel, vitamin levels, diet as tolerated. As per nursing staff, the patient's mental level was not grade. Neurologist on the case. Seen on 04/12/2017. History of congestive heart failure. Neurologist recommended adequate hydration, want to perform Nigel Cognitive Assessment for evaluation of cognitive dysfunction. We will put to re-consult. We will follow up. Fariha Olvera MD MTDHaris
[2017-04-15 07:39] LABS: HEMATOCRIT 36.3 % (36.0-48.0); MEAN CELL VOLUME 98.1 fl (80.0-105.0); MEAN CORPUSCULAR HEMOGLOBIN 33.2 pg (25.0-35.0); MEAN CORPUSCULAR HGB CONC 33.9 g/dl (31.0-37.0); MEAN PLATELET VOLUME 9.6 fl (7.0-11.0); RED CELL DISTRIBUTION WIDTH 14.1 % (11.5-14.5); WHITE BLOOD COUNT 4.5 10^3/ul (4.5-11.0)
[2017-04-15 08:09] LABS: CALCIUM 8.9 mg/dL (8.4-10.5)
[2017-04-15 08:18] LABS: POTASSIUM 2.7 mmol/L (3.6-5.0)
[2017-04-15] MEDS: Insulin Reg-LOW-Coverage SC SCH ×4 (08:27→22:40)
[2017-04-15] MEDS: buPROPion 150 mg/24 Hours XL Tab PO SCH (10:54)
[2017-04-15] MEDS: Vancomycin 25 MG/ML PO SCH ×4 (11:00→22:40)
[2017-04-15] MEDS: Lidocaine 5% Patch TOP SCH (11:01)
[2017-04-15] MEDS: Digoxin 125 mcg (0.125 mg) Tab PO SCH (14:18)
[2017-04-15] MEDS: Sodium Chloride 0.45% 1,000 ML IV SCH (14:20)
--- NOTE | 2017-04-15 16:01 | MRI ---
PROCEDURE: MRI BRAIN WITHOUT CONTRAST HISTORY: AMS COMPARISON: Comparison is made to the previous CT dated 04/12/2017 TECHNIQUE: Multiplanar, multisequence MR images of the brain were obtained without intravenous contrast enhancement. FINDINGS: HEMORRHAGE: None DWI: No evidence of an acute or early subacute infarction. BRAIN PARENCHYMA: No mass effect or edema. Mild to moderate atrophy and mild white matter changes suggestive but nonspecific for chronic microvascular ischemic disease. VENTRICLES: Unremarkable. No hydrocephalus. CRANIUM: Unremarkable. ORBITS: Grossly unremarkable. PARANASAL SINUSES/MASTOIDS: Clear VASCULAR SYSTEM: Skull base flow voids intact. OTHER FINDINGS: None. IMPRESSION: No evidence of acute infarction, mass lesion mass effect or midline shift. Mild volume loss and mild white matter changes suggestive but nonspecific for chronic microvascular ischemic disease.
--- NOTE | 2017-04-15 20:07 | PN ---
DATE: 04/15/2017 SUBJECTIVE: This patient was seen and evaluated earlier. The patient is comfortable. Tolerating the diet. PHYSICAL EXAMINATION VITAL SIGNS: Temperature is 97.4, blood pressure 127/72, pulse 71, respirations 18. HEENT: Atraumatic, anicteric. NECK: Supple. HEART: S1 and S2 heard. LUNGS: Bilateral air entry present. ABDOMEN: Soft. No tenderness. EXTREMITIES: No edema. No cyanosis. LABORATORY DATA: Hemoglobin 12.3, hematocrit 36.3, WBC is 4.5, platelets 164. Chemistry showed potassium has come down to 2.7. IMPRESSION: This is a 66-year-old patient with a history of diabetes mellitus, status post gastric bypass, hypertension, coronary artery disease, admitted with weakness and headache. The patient has nearly 20 pounds in weight loss within a short period of month at about 6 weeks. She also has intermittent episodes of diarrhea on exam. The patient had a CT scan of the abdomen and pelvis with p.o. and IV contrast done, which did not reveal any acute pathology or mass lesion. The patient is diabetic on metformin, which has been on hold for the CT with contrast and the patient's renal function, creatinine is 1.2 with a slightly low GFR. We will continue the IV fluids and hold the diuretics for the time being. History of B12 deficiency ON supplement. The patient would benefit from the EGD and colonoscopy to further evaluate. We will discuss with Dr. Olvera regarding this. The patient's Clostridium difficile antigen positive in view of the history of diarrhea, Clostridium difficile antigen positive. We will keep the patient on vancomycin 250 q.i.d. The other comorbidities include congestive heart failure. The patient is also being evaluated by Neurology for assessment for cognitive impairment.. Thank you very much for allowing me to participate in the care of the patient. Gee Boyer MD [facility]
[2017-04-16] MEDS: Sodium Chloride 0.45% 1,000 ML IV SCH (05:40)
[2017-04-16 07:22] LABS: HEMATOCRIT 36.8 % (36.0-48.0); MEAN CELL VOLUME 99.5 fl (80.0-105.0); MEAN CORPUSCULAR HEMOGLOBIN 33.8 pg (25.0-35.0); MEAN PLATELET VOLUME 9.4 fl (7.0-11.0); RED CELL DISTRIBUTION WIDTH 14.2 % (11.5-14.5); WHITE BLOOD COUNT 5.6 10^3/ul (4.5-11.0)
[2017-04-16 07:35] LABS: POTASSIUM 3.1 mmol/L (3.6-5.0)
[2017-04-16] MEDS: Insulin Reg-LOW-Coverage SC SCH ×4 (08:27→22:49)
[2017-04-16] MEDS: Apap-Butalbital-Caffeine 325-50-40mg Tab PO PRN (10:46)
[2017-04-16] MEDS: buPROPion 150 mg/24 Hours XL Tab PO SCH (10:47)
[2017-04-16] MEDS: Lidocaine 5% Patch TOP SCH (10:48)
[2017-04-16] MEDS: Digoxin 125 mcg (0.125 mg) Tab PO SCH (14:36)
[2017-04-16] MEDS: Vancomycin 25 MG/ML PO SCH ×4 (14:37→22:45)
--- NOTE | 2017-04-16 18:03 | PN ---
DATE: 04/16/2017 SUBJECTIVE: This patient was seen and evaluated earlier. Discussed with the nursing staff and also with Dr. Olvera. The patient comfortable. Tolerating the diet. PHYSICAL EXAMINATION: VITAL SIGNS: On examination, temperature 97, blood pressure 111/77, pulse 61, respirations 18. HEENT: Atraumatic. Anicteric. NECK: Supple. HEART: S1 and S2 heard. LUNGS: Bilateral air entry present. ABDOMEN: Soft. There is no tenderness. EXTREMITIES: No edema, no cyanosis. LABORATORY DATA: Hemoglobin 12.5, hematocrit 36.5, WBC 5.6, platelets 153. Chemistry shows slightly increase in serum creatinine to 1.4, GFR 38, potassium 3.1. IMPRESSION: This 66-year-old patient is admitted with significant weight loss. 1. History of weight loss more than 20 pounds in 6 weeks. 2. Status post gastric bypass, many years, longtime back. 3. B12 deficiency. 4. Acute kidney injury. 5. Diabetes mellitus. 6. Other comorbidities include coronary artery disease, hypertension, diabetes mellitus and also Clostridium difficile associated diarrhea. RECOMMENDATIONS: 1. Continue p.o. vancomycin. 2. Renal evaluation. 3. Discussed with the patient and also we will discuss with the patient's daughter, Elena Benz, telephone number [phone]. We will discuss regarding the upper GI endoscopic evaluation in view of the history of weight loss and B12 deficiency, rule out any gastric neoplasia. The patient has a history of cognitive impairment. The patient is being also evaluated by the neurologist, and also for headache. The patient has been on Plavix. Thank you very much for allowing us to participate in the care of the patient. Gee Boyer MD
--- NOTE | 2017-04-17 03:10 | PN ---
DATE: SUBJECTIVE: The patient is seen and examined on the bedside, still has diarrhea, went 3 to 4 times at least. As per the patient, sometimes she is getting depressed and getting episodes of confusion, but during my interview, she was awake and oriented x3. No nausea or vomiting. No headache. No dizziness. No chest pain. No fevers. No chills. No hematuria. No hematochezia. PHYSICAL EXAMINATION: VITAL SIGNS: Temperature 97.4, blood pressure 127/72, pulse oximetry 71%, and respiratory rate 18. HEENT: Head is normocephalic and atraumatic. Eyes; PERRLA. Extraocular muscles are intact. Conjunctivae are clear. Nose is patent. Mucous membranes are moist. NECK: Supple. No carotid bruits. No JVD or thyromegaly. CHEST: Bilaterally symmetrical. HEART: S1 and S2 positive. LUNGS: Clear to auscultation. ABDOMEN: Soft. Bowel sounds present. No organomegaly. EXTREMITIES: No edema. No cyanosis. NEUROLOGIC: The patient is awake and alert. Moving all 4 extremities. No focal deficits. LABORATORY DATA: Hemoglobin 12.3, hematocrit 36.3, white blood cells 4.5 and platelets 164. Sodium is 141, potassium 3.1, BUN 18, creatinine 1.6 and glucose 115, 153, 106 and 127. ASSESSMENT AND PLAN: Ms. Willow Cast is a 66-year-old lady with history of anemia and got better; hypokalemia improving , having renal insufficiency. A Nephrology consult was called with Dr. Powell. Uncontrolled diabetes mellitus and diarrhea, seen by Dr. Boyer. The patient has history of weight loss more than 20 pounds in 6 weeks, status post gastric bypass many years ago longtime back, B12 deficiency replaced. Other comorbidities include coronary artery disease, hypertension, Clostridium difficile associated diarrhea, continue vancomycin p.o. as per Dr. Boyer. Renal evaluation. Psych consult called with Dr. Minh Aguirre. The patient is depressed, but not depressed to want to hurt herself or anybody else. Dr. Boyer spoke to patient's daughter also, Elena Benz, may be patient will go for upper endoscopy tomorrow as per Dr. Boyer and after that a CAT scan with IV and p.o. contrast after doing evaluation of renal function test. The patient has history of cognitive impairment. Because of B12 deficiency, Dr. Boyer wants to rule out any type of neoplasm. Neurologist is on the case. GI is on the case. Psychiatry and Nephrology consults called. Repeat labs. We will follow up. Fariha Olvera MD MTDD
[2017-04-17 06:27] LABS: MEAN CELL VOLUME 98.9 fl (80.0-105.0); MEAN CORPUSCULAR HEMOGLOBIN 33.9 pg (25.0-35.0); MEAN CORPUSCULAR HGB CONC 34.3 g/dl (31.0-37.0); MEAN PLATELET VOLUME 9.4 fl (7.0-11.0); RED CELL DISTRIBUTION WIDTH 14.2 % (11.5-14.5); WHITE BLOOD COUNT 4.9 10^3/ul (4.5-11.0)
[2017-04-17] MEDS: Sodium Chloride 0.45% 1,000 ML IV SCH (07:07)
[2017-04-17] MEDS: Insulin Reg-LOW-Coverage SC SCH ×4 (07:36→22:00)
--- NOTE | 2017-04-17 08:36 | PN ---
DATE: 04/15/2017 SUBJECTIVE: The patient is a 66-year-old female. The patient is seen and examined at the bedside, still having diarrhea. No blood in the bowel movement. No nausea or vomiting. Tolerating food. Having episode of altered mental status as per nursing staff. PHYSICAL EXAMINATION: VITAL SIGNS: Temperature 98.6, pulse 57, blood pressure 142/79, respiratory rate 20. HEENT: Head is normocephalic and atraumatic. Eyes; PERRLA. Extraocular muscles are intact. Conjunctivae clear. Nose is patent. Mucous membranes are moist. NECK: Supple. No carotid bruits, JVD or thyromegaly. CHEST: Bilaterally symmetrical. HEART: S1 and S2 positive. LUNGS: Clear to auscultation. ABDOMEN: Soft. Bowel sounds positive. No organomegaly. EXTREMITIES: No edema. No cyanosis. NEUROLOGICAL: The patient is awake and alert. Moving all 4 extremities. No focal deficit. LABORATORY DATA: White blood cells 4.5, hemoglobin 12.3, hematocrit 36.3, platelets 164. Sodium 137, potassium 2.7, BUN 15, creatinine 1.5. Glucose 154, 104, 133, 123. MEDICATIONS: Cymbalta, Fioricet, Glucophage, insulin, hydrochlorothiazide, Inderal, Lanoxin, Lasix, Lidoderm, Lipitor, Plavix, potassium, Remeron, NS, vancomycin, Wellbutrin, Zestril. ASSESSMENT AND PLAN: Ms. Willow Cast is a 66-year-old lady with history of leukopenia, anemia, history of hypokalemia, replaced with 3K either of 20 mEq hypochloremia, uncontrolled diabetes mellitus, proteinuria, glucosuria, hematuria, urinary tract infection. Seen by Dr. Boyer GI, I reviewed his notes. History of gastric bypass, hypertension, coronary artery disease. According to the patient, she lost almost 20 pound in 6 weeks. CAT scan of the abdomen and pelvis with p.o. and IV contrast done, which did not reveal any acute pathology or mas lesion. The patient was on metformin that was held. Continue IV fluid. Hold the diuretics for the time being to avoid dehydration. According to GI, the patient will benefit from EGD and colonoscopy to further evaluation. The patient's Clostridium difficile antigen positive in review of the history of diarrhea. Clostridium difficile antigen positive. We will keep the patient on vancomycin q.i.d. Because of altered mental status, re-consult called with Dr. oByer. Brain MRI is done, waiting for his input. We will repeat labs. We will follow. Fariha Olvera MD
[2017-04-17] MEDS: Vancomycin 25 MG/ML PO SCH ×4 (10:54→22:13)
[2017-04-17] MEDS: Potassium Chloride 20 mEq ER Tab PO SCH ×2 (10:55→13:20)
[2017-04-17] MEDS: buPROPion 150 mg/24 Hours XL Tab PO SCH (10:55)
[2017-04-17] MEDS: Lidocaine 5% Patch TOP SCH (10:58)
--- NOTE | 2017-04-17 12:43 | CP.PCM.PN ---
<Gee Boyer V - Last Filed: 04/17/17 19:47> Subjective - Date & Time of Evaluation Date of Evaluation: 04/17/17 Time of Evaluation: 11:30 Objective - Vital Signs/Intake and Output Vital Signs (last 24 hours): Temp Pulse Resp BP Pulse Ox 98 F 80 18 136/71 100 04/17/17 12:00 04/17/17 14:00 04/17/17 12:00 04/17/17 12:00 04/17/17 06:00 Intake and Output: 04/17/17 04/17/17 06:59 18:59 Intake Total 1490 Output Total 4 Balance 1486 - Medications Medications: Current Medications Acetaminophen/Butalbital/Caffeine (Fioricet) 1 tab PO Q4H PRN PRN Reason: Headache Last Admin: 04/16/17 10:46 Dose: 1 tab Atorvastatin Calcium (Lipitor) 80 mg PO DAILY [facility] Last Admin: 04/17/17 10:58 Dose: 80 mg Bupropion HCl (Wellbutrin Xl) 150 mg PO DAILY [facility] Last Admin: 04/17/17 10:55 Dose: 150 mg Clopidogrel Bisulfate (Plavix) 75 mg PO DAILY [facility] Last Admin: 04/17/17 10:57 Dose: 75 mg Digoxin (Lanoxin) 0.125 mg PO 1400 [facility] Last Admin: 04/17/17 13:23 Dose: 0.125 mg Duloxetine HCl (Cymbalta) 20 mg PO DAILY [facility] Last Admin: 04/17/17 11:04 Dose: 20 mg Furosemide (Lasix) 40 mg PO DAILY [facility] Last Admin: 04/14/17 09:47 Dose: 40 mg Hydrochlorothiazide (Hydrodiuril) 25 mg PO DAILY [facility] Last Admin: 04/14/17 09:39 Dose: 25 mg Potassium Chloride (Potassium Chloride 20 Meq/100 Ml) 20 meq in 100 mls @ 50 mls/hr IVPB Q12H [facility] Last Admin: 04/17/17 10:55 Dose: 50 mls/hr Potassium Chloride 40 meq/ (Sodium Chloride) 1,020 mls @ 80 mls/hr IV .[id number] [facility] Magnesium Sulfate 2 gm/ Sodium (Chloride) 104 mls @ 50 mls/hr IVPB ONCE ONE Stop: 04/17/17 20:03 Insulin Human Regular (Humulin R Low) 0 units SC ACHS [facility] PRN Reason: Protocol Last Admin: 04/17/17 18:01 Dose: Not Given Lidocaine (Lidoderm) 1 ea TOP DAILY [facility] Last Admin: 04/17/17 10:58 Dose: 1 ea Lisinopril (Zestril) 20 mg PO DAILY [facility] Last Admin: 04/17/17 10:57 Dose: 20 mg Magnesium Oxide (Mag-Ox) 400 mg PO BID [facility] Metformin HCl (Glucophage) 500 mg PO BID [facility] Last Admin: 04/17/17 10:55 Dose: 500 mg Mirtazapine (Remeron) 15 mg PO HS PRN PRN Reason: Insomnia Last Admin: 04/16/17 22:45 Dose: 15 mg Propranolol HCl (Inderal) 40 mg PO DAILY [facility] Last Admin: 04/17/17 10:57 Dose: 40 mg Vancomycin HCl (Vancocin 25 Mg/Ml (Oral Use)) 250 mg PO QID [facility] PRN Reason: Protocol Last Admin: 04/17/17 13:21 Dose: 250 mg - Labs Labs: 04/17/17 06:00 04/17/17 06:00 Attending/Attestation - Attestation I have personally seen and examined this patient.: Yes I have fully participated in the care of the patient.: Yes I have reviewed all pertinent clinical information, including history, physical exam and plan: Yes Notes (Text): IThis is an addendum to GI progress report dictated by Lissa Hearn APN.The patient was seen and examined earlier. Medical records, lab studies, imagings were reviewed. Last 24 hours events reviewed. Agreed with the above treatment plan as outlined in Lissa Hearn APN's notes the with the addition of the following the patient was seen and evaluated earlier examination abdomen soft no tenderness. cr has improved to 1.2. Patient had CAT scan of the abdomen and pelvis with only by mouth contrast no IV was not given Patient has significant weight loss and B12 deficiency would benefit from upper GI endoscopy scheduled for tomorrow a.m. 04/17/17 18:05 <Lissa Hearn - Last Filed: 04/18/17 07:52> Subjective - Subjective Subjective: Seen and examined at the bedside earlier this morning, no acute overnight events reported. Patient report improvemnt of diarrhea, no reports of any overt GI bleed. Denies nausea, vomiting, shortness of breath, or chest pain. No abdominal pain or overt GI bleed. Objective - Vital Signs/Intake and Output Vital Signs (last 24 hours): Temp Pulse Resp BP Pulse Ox 98 F 84 20 126/84 100 04/17/17 06:00 04/17/17 10:57 04/17/17 06:00 04/17/17 10:57 04/17/17 06:00 Intake and Output: 04/17/17 04/17/17 06:59 18:59 Intake Total 1490 Output Total 4 Balance 1486 - Medications Medications: Current Medications Acetaminophen/Butalbital/Caffeine (Fioricet) 1 tab PO Q4H PRN PRN Reason: Headache Last Admin: 04/16/17 10:46 Dose: 1 tab Atorvastatin Calcium (Lipitor) 80 mg PO DAILY [facility] Last Admin: 04/17/17 10:58 Dose: 80 mg Bupropion HCl (Wellbutrin Xl) 150 mg PO DAILY [facility] Last Admin: 04/17/17 10:55 Dose: 150 mg Clopidogrel Bisulfate (Plavix) 75 mg PO DAILY [facility] Last Admin: 04/17/17 10:57 Dose: 75 mg Digoxin (Lanoxin) 0.125 mg PO 1400 [facility] Last Admin: 04/16/17 14:36 Dose: 0.125 mg Duloxetine HCl (Cymbalta) 20 mg PO DAILY [facility] Last Admin: 04/17/17 11:04 Dose: 20 mg Furosemide (Lasix) 40 mg PO DAILY [facility] Last Admin: 04/14/17 09:47 Dose: 40 mg Hydrochlorothiazide (Hydrodiuril) 25 mg PO DAILY [facility] Last Admin: 04/14/17 09:39 Dose: 25 mg Sodium Chloride (Sodium Chloride 0.45%) 1,000 mls @ 60 mls/hr IV .[id number] [facility] Last Admin: 04/17/17 07:07 Dose: Not Given Potassium Chloride (Potassium Chloride 20 Meq/100 Ml) 20 meq in 100 mls @ 50 mls/hr IVPB Q12H [facility] Last Admin: 04/17/17 10:55 Dose: 50 mls/hr Insulin Human Regular (Humulin R Low) 0 units SC ACHS [facility] PRN Reason: Protocol Last Admin: 04/17/17 12:23 Dose: Not Given Lidocaine (Lidoderm) 1 ea TOP DAILY [facility] Last Admin: 04/17/17 10:58 Dose: 1 ea Lisinopril (Zestril) 20 mg PO DAILY [facility] Last Admin: 04/17/17 10:57 Dose: 20 mg Magnesium Oxide (Mag-Ox) 400 mg PO BID [facility] Metformin HCl (Glucophage) 500 mg PO BID [facility] Last Admin: 04/17/17 10:55 Dose: 500 mg Mirtazapine (Remeron) 15 mg PO HS PRN PRN Reason: Insomnia Last Admin: 04/16/17 22:45 Dose: 15 mg Propranolol HCl (Inderal) 40 mg PO DAILY [facility] Last Admin: 04/17/17 10:57 Dose: 40 mg Vancomycin HCl (Vancocin 25 Mg/Ml (Oral Use)) 250 mg PO QID [facility] PRN Reason: Protocol Last Admin: 04/17/17 10:54 Dose: 250 mg - Labs Labs: 04/17/17 06:00 04/17/17 06:00 - Constitutional Appears: No Acute Distress - Head Exam Head Exam: NORMAL INSPECTION - Eye Exam Eye Exam: Normal appearance. absent: Scleral icterus - ENT Exam ENT Exam: Mucous Membranes Moist - Neck Exam Neck Exam: Normal Inspection - Respiratory Exam Respiratory Exam: NORMAL BREATHING PATTERN. absent: Respiratory Distress - Cardiovascular Exam Cardiovascular Exam: +S1, +S2 - GI/Abdominal Exam GI & Abdominal Exam: Soft, Normal Bowel Sounds. absent: Guarding, Tenderness, Rebound - Extremities Exam Extremities Exam: Normal Capillary Refill. absent: Calf Tenderness - Neurological Exam Neurological Exam: Alert, Awake, Oriented x3 - Skin Skin Exam: Dry, Warm Assessment and Plan - Assessment and Plan (Free Text) Assessment: Assessment: Hypokalemia Cdiff colitis Dizziness B12 deficiency Weight loss Chronic diarrhea Ailyn Insuffiency History of gastric bypass Coronary artery disease status post cardiac catheterization, on Plavix. Hypertension Diabetes mellitus Plan: Diet as tolerated on Plavix continue Oral Vancomycin Continue monitor electrolytes and replete potassium as necessary Continued GI and DVT prophylaxis Plan for diagnostic EGD on 04/18/17 Npo after clear liquid breakfast Cardiology and neurology follow-up spoke to patient daughter Elena Morgan, regarding EGD for tomororow , agree w/ plan , consent to be obtained in am. Seen and discussed with Dr. Boyer.
[2017-04-17] MEDS: Digoxin 125 mcg (0.125 mg) Tab PO SCH (13:23)
--- NOTE | 2017-04-17 17:49 | CP.PCM.CON ---
History of Present Illness - History of Present Illness History of Present Illness: 66 yo F w/ pmh of htn, dm, CAD s/p stent, CHF w/ systolic dysfunction, asthma, presented to ED with complaint of feeling dizzy and lightheaded; found to be profoundly hypokalemic and admitted; nephrology being consulted for hypokalemia; Patient reports having frequent loose diarrhea over the past month; reports that she has always had intermittents bouts of diarrhea that was related to stress but that would resolve quickly; current bout of diarrhea has been more severe, occurring at night as well, and associated with weight loss; occurs soon after eating anything; patient otherwise denies nausea or vomiting; Patient denies any change in urination; reports always having urinated frequently, 3-4 times per night; sometimes with feeling of incomplete evacuation of bladder; Review of Systems - Constitutional Constitutional: Lethargy - EENT Eyes: absent: Change in Vision Nose/Mouth/Throat: absent: Dysphagia - Cardiovascular Cardiovascular: Claudication, Dyspnea on Exertion. absent: Chest Pain - Respiratory Respiratory: Cough - Gastrointestinal Gastrointestinal: As Per HPI - Genitourinary Genitourinary: As Per HPI - Neurological Neurological: Dizziness - Psychiatric Psychiatric: Depression Past Patient History - Infectious Disease Hx of Infectious Diseases: None - Tetanus Immunizations Tetanus Immunization: Unknown - Past Medical History & Family History Past Medical History?: Yes Pertinent Family History: Father from [place] in his early 40's; - Past Social History Smoking Status: Former Smoker Alcohol: Social Drugs: Denies Home Situation {Lives}: Alone - CARDIAC Hx Cardiac Disorders: Yes Hx Congestive Heart Failure: Yes Hx Hypertension: Yes - PULMONARY Hx Respiratory Disorders: Yes Hx Asthma: Yes - NEUROLOGICAL Hx Neurological Disorder: No Hx Paralysis: No - HEENT Hx HEENT Problems: Yes Other/Comment: glasses - RENAL Hx Chronic Kidney Disease: No - ENDOCRINE/METABOLIC Hx Diabetes Mellitus Type 2: Yes - HEMATOLOGICAL/ONCOLOGICAL Hx Blood Disorders: No Hx Blood Transfusions: No - INTEGUMENTARY Hx Dermatological Problems: No - MUSCULOSKELETAL/RHEUMATOLOGICAL Hx Musculoskeletal Disorders: Yes - GASTROINTESTINAL Hx Gastrointestinal Disorders: No - GENITOURINARY/GYNECOLOGICAL Hx Genitourinary Disorders: No - PSYCHIATRIC Hx Psychophysiologic Disorder: No Hx Emotional Abuse: No Hx Physical Abuse: No Hx Substance Use: No - SURGICAL HISTORY Hx Cardiac Catheterization: Yes Hx Coronary Stent: Yes - ANESTHESIA Hx Anesthesia: Yes Hx Anesthesia Reactions: No Hx Malignant Hyperthermia: No Meds Allergies/Adverse Reactions: Allergies Allergy/AdvReac Type Severity Reaction Status Date / Time No Known Allergies Allergy Verified 04/12/17 15:36 - Medications Medications: Current Medications Acetaminophen/Butalbital/Caffeine (Fioricet) 1 tab PO Q4H PRN PRN Reason: Headache Last Admin: 04/16/17 10:46 Dose: 1 tab Atorvastatin Calcium (Lipitor) 80 mg PO DAILY [facility] Last Admin: 04/17/17 10:58 Dose: 80 mg Bupropion HCl (Wellbutrin Xl) 150 mg PO DAILY [facility] Last Admin: 04/17/17 10:55 Dose: 150 mg Clopidogrel Bisulfate (Plavix) 75 mg PO DAILY [facility] Last Admin: 04/17/17 10:57 Dose: 75 mg Digoxin (Lanoxin) 0.125 mg PO 1400 [facility] Last Admin: 04/17/17 13:23 Dose: 0.125 mg Duloxetine HCl (Cymbalta) 20 mg PO DAILY [facility] Last Admin: 04/17/17 11:04 Dose: 20 mg Furosemide (Lasix) 40 mg PO DAILY [facility] Last Admin: 04/14/17 09:47 Dose: 40 mg Hydrochlorothiazide (Hydrodiuril) 25 mg PO DAILY [facility] Last Admin: 04/14/17 09:39 Dose: 25 mg Sodium Chloride (Sodium Chloride 0.45%) 1,000 mls @ 60 mls/hr IV .[id number] [facility] Last Admin: 04/17/17 07:07 Dose: Not Given Potassium Chloride (Potassium Chloride 20 Meq/100 Ml) 20 meq in 100 mls @ 50 mls/hr IVPB Q12H [facility] Last Admin: 04/17/17 10:55 Dose: 50 mls/hr Insulin Human Regular (Humulin R Low) 0 units SC ACHS [facility] PRN Reason: Protocol Last Admin: 04/17/17 12:23 Dose: Not Given Lidocaine (Lidoderm) 1 ea TOP DAILY [facility] Last Admin: 04/17/17 10:58 Dose: 1 ea Lisinopril (Zestril) 20 mg PO DAILY [facility] Last Admin: 04/17/17 10:57 Dose: 20 mg Magnesium Oxide (Mag-Ox) 400 mg PO BID [facility] Metformin HCl (Glucophage) 500 mg PO BID [facility] Last Admin: 04/17/17 10:55 Dose: 500 mg Mirtazapine (Remeron) 15 mg PO HS PRN PRN Reason: Insomnia Last Admin: 04/16/17 22:45 Dose: 15 mg Propranolol HCl (Inderal) 40 mg PO DAILY [facility] Last Admin: 04/17/17 10:57 Dose: 40 mg Vancomycin HCl (Vancocin 25 Mg/Ml (Oral Use)) 250 mg PO QID [facility] PRN Reason: Protocol Last Admin: 04/17/17 13:21 Dose: 250 mg Physical Exam - Constitutional Appears: Non-toxic, No Acute Distress - Head Exam Head Exam: NORMAL INSPECTION - Eye Exam Eye Exam: Normal appearance. absent: Scleral icterus - ENT Exam ENT Exam: Mucous Membranes Moist - Respiratory Exam Respiratory Exam: Clear to Auscultation Bilateral, NORMAL BREATHING PATTERN. absent: Rales, Rhonchi, Wheezes, Respiratory Distress - Cardiovascular Exam Cardiovascular Exam: REGULAR RHYTHM, +S1, +S2. absent: Gallop, Rubs - GI/Abdominal Exam GI & Abdominal Exam: Soft. absent: Distended, Tenderness - Exam Exam: absent: Bladder Distension - Extremities Exam Additional comments: no leg edema; - Neurological Exam Neurological exam: Alert, Oriented x3 - Psychiatric Exam Psychiatric exam: Normal Affect, Normal Mood - Skin Skin Exam: Warm Additional comments: darkened discoloration of R calf; Results - Vital Signs Recent Vital Signs: Last Vital Signs Temp 98 F 04/17/17 12:00 Pulse 80 04/17/17 14:00 Resp 18 04/17/17 12:00 BP 136/71 04/17/17 12:00 Pulse Ox 100 04/17/17 06:00 - Labs Result Diagrams: 04/17/17 06:00 04/17/17 06:00 Labs: Laboratory Results - last 24 hr 04/16/17 04/17/17 04/17/17 21:27 06:00 06:00 WBC 4.9 RBC 3.54 Hgb 12.0 Hct 35.0 L MCV 98.9 MCH 33.9 MCHC 34.3 RDW 14.2 Plt Count 153 MPV 9.4 Sodium 142 Potassium 3.0 L Chloride 104 Carbon Dioxide 29 Anion Gap 12 BUN 18 Creatinine 1.2 Est GFR ( Amer) 54 Est GFR (Non-Af Amer) 45 POC Glucose (mg/dL) 116 H Random Glucose 97 Calcium 9.0 Magnesium 04/17/17 04/17/17 06:00 07:12 WBC RBC Hgb Hct MCV MCH MCHC RDW Plt Count MPV Sodium Potassium Chloride Carbon Dioxide Anion Gap BUN Creatinine Est GFR ( Amer) Est GFR (Non-Af Amer) POC Glucose (mg/dL) 104 Random Glucose Calcium Magnesium 1.4 L - Imaging and Cardiology CT scan - abdomen Status: Image reviewed by me Additional comment: Vascular calcifications present; Assessment & Plan (1) Hypokalemia Assessment and Plan: In the setting of persistent diarrhea; hypomagnesemia causing further persistence of hypokalemia; -Continue to replenish K aggressively (giving 80 meq PO on top of 40 meq IV for today, adding KCl 40 meq/L to IVF) -Giving Mag sulfate 2 g (run slowly at 50 cc/hr to avoid renal mag wasting) -urine lytes to look for evidence of renal K wasting; Status: Acute (2) CKD (chronic kidney disease) stage 3, GFR 30-59 ml/min Assessment and Plan: Renal function relatively stable over past 5 years; flucutations in serum creatinine likely hemodynamically mediated and may reflect underlying renovascular disease, but can also be indicative of some degree of reflux nephropathy; Furthermore, appearance of proteinuria on UA recently may be indicative of superimposed DM nephropathy; -checking random urine for microalbumin, protein and creatinine -obtaining renal and bladder US (to check post-void residual volume) Status: Acute (3) HTN (hypertension) Assessment and Plan: Relatively controlled; continue to avoid diuretics in the setting of hypokalemia and diarrhea; continue lisinopril 20 mg daily; Status: Chronic (4) Proteinuria Assessment and Plan: Per urine dipstick; will better quantify with urine studies as above; Status: Acute
[2017-04-17] MEDS ORDERED: Magnesium Sulfate 2 GM in Sodium Chloride 0.9% 100 ML IVPB ONE (17:59)
[2017-04-17] MEDS: Magnesium Oxide 400 mg Tab UD PO SCH (19:00)
[2017-04-17] MEDS: Potassium Chloride 40 MEQ in Sodium Chloride 0.45% 1,000 ML IV SCH (19:57)
--- NOTE | 2017-04-18 01:07 | PN ---
DATE: SUBJECTIVE: The patient is a 66-year-old female. The patient is seen and examined on the bedside, looks comfortable, no change in the status, still having diarrhea. No GI bleeding. No nausea or vomiting. No shortness of breath. No chest pain. No abdominal pain. No hematuria. No hematochezia. No fever. No chills. PHYSICAL EXAMINATION: VITAL SIGNS: Temperature 98, pulse 84, respiratory rate 20, blood pressure 126/84 and pulse oximetry 100%. HEENT: Head is normocephalic and atraumatic. Eyes; PERRLA. Extraocular muscles are intact. Conjunctivae are clear. Nose is patent. Mucous membranes are moist. NECK: Supple. No carotid bruits. No JVD or thyromegaly. CHEST: Bilaterally symmetrical. HEART: S1 and S2 positive. LUNGS: Clear to auscultation. ABDOMEN: Soft. Bowel sounds present. No organomegaly. EXTREMITIES: No edema. No cyanosis. NEUROLOGIC: The patient is awake and alert. Moving all 4 extremities. No focal deficits. MEDICATIONS: Lipitor, Wellbutrin, Plavix, Lanoxin,Cymbalta, Lasix, hydrochlorothiazide, NS, Lidoderm, Zestril, magnesium oxide, Remeron, vancomycin, and Inderal. LABORATORY DATA: White blood cells 12.9, hemoglobin 12.0, hematocrit 35.0, and platelets 153. Sodium 142, potassium 3.0, BUN 18, creatinine 1.7 and glucose 97. ASSESSMENT AND PLAN: Ms. Serene Daugherty is a 66-year-old lady with hypokalemia, replaced, has intractable diarrhea. Gastrointestinal is on the case, Dr. Boyer was planning to do esophagogastroduodenoscopy and colonoscopy today, but because of potassium, Anesthesia refused to do procedure. We will replace potassium, and we will repeat labs. Clostridium difficile toxin colitis, getting vancomycin; dizziness; B12 deficiency; weight loss; history of gastric bypass; coronary artery disease, status post cardiac catheterization, on Plavix; hypertension; uncontrolled diabetes mellitus, food as tolerated. Continue Plavix, oral vancomycin. Replace the electrolytes. Gastrointestinal and deep venous thrombosis prophylaxis. According to Dr. Boyer, the patient will go for esophagogastroduodenoscopy tomorrow. Length of time discussion done with Dr. Boyer. Treatment plan made. Sometimes the patient is getting episodes of altered mental status, so Dr. Boyer will talk to the patient's daughter to get the consent and actually Dr. Boyer spoke to the daughter, she agrees with the plan. Signed consent to be obtained in the a.m. We will follow up. Fariha Olvera MD MTDD
[2017-04-18] MEDS: Potassium Chloride 40 MEQ in Sodium Chloride 0.45% 1,000 ML IV SCH (06:50)
[2017-04-18 07:55] LABS: INR 1.06 (0.93-1.08); PARTIAL THROMBOPLASTIN TIME 25.6 Seconds (23.7-30.8)
[2017-04-18 08:00] LABS: ALB/GLOB RATIO 1.3 (1.1-1.8); BILIRUBIN,TOTAL 0.4 mg/dL (0.2-1.3); POTASSIUM 4.2 mmol/L (3.6-5.0); TOTAL PROTEIN 6.3 g/dL (5.8-8.3)
--- NOTE | 2017-04-18 08:47 | CON ---
DATE: 04/17/2017 HISTORY: The patient 66-year-old female with reported history of major depressive disorder AND adjustment disorder, one previous psychiatric admission into the Psychiatric Inpatient Unit here in [place] in 02/2015. The patient is very familiar to this mortgage or loan underwriter from the previous admission. This time, the patient was admitted on the medical floor for evaluation of loss of balance. Psych consult was called for evaluation of mood symptoms as well as the patient is on psychotropic medication. The patient was seen and examined today. The patient presented to be alert and oriented, pleasant, and cooperative. The patient remembered this mortgage or loan underwriter, but does not remember her name. The patient reported that she feels little bit better. The patient said that she is not that depressed as she was before. The patient said that she still has depressive symptoms. The patient report that she has poor relationship with her daughter and this poor relationship related to the fact that the patient daughter involved into the relationship with "not nice jillian." The patient feels upset over that situation. The patient also feels upset in regards of her granddaughter whom she is involved to care, but in disagreement with the discipline of the granddaughter. Besides that, the patient denied any new symptoms. Denied thoughts of harming herself or others. Denied intent or plan. The patient denied hearing voices, denied seeing things, denied paranoid ideation. The patient reported that she was followed up with psychiatrist at [facility] outpatient program. She is willing to go back there. The patient is not sure what medication she is taking, but she said that she was not taking Wellbutrin. The patient was pharmacy. We will go and confirm, but it feels the patient was taking Wellbutrin for the past 4 days and this would be recommended that the patient needs to continue with Wellbutrin and Cymbalta. PHYSICAL EXAMINATION VITAL SIGNS: Stable. Temperature 98, pulse is 67, blood pressure is 126/64, respiration 20, and oxygen saturation is 100. MEDICATIONS: Medications reviewed. The patient is on ____ Furosed, Lipitor, Wellbutrin, Plavix, Digoxin, Cymbalta 20 mg daily, Lasix, hydrochlorothiazide, Humulin, Lidoderm, , metformin Remeron as needed for insomnia, potassium chloride, K-Dur, Inderal, sodium chloride, and vancomycin. LABORATORY DATA: Labs reviewed. Urine showed leukocyte esterase large. MENTAL STATUS EXAMINATION: The patient presented to have good personal hygiene and fair eye contact. Speech was normal rate on quality and quantity. Intermittent eye contact. Speech was normal rate, tone, quality, and quantity. Mood described as still depressed, but not the same extent as it was before. Affect was constricted, but reactive mood congruent. Thought process was coherent and goal directed. Thought content, the patient denied visual, auditory, tactile hallucinations. The patient does not present to be psychotic. Insight judgment fair. Impulses are well controlled. IMPRESSION: As per history, the patient has major depressive disorder as well as adjustment disorder. The patient has multiple medical issues. Please see Dr. Olvera notes for more detailed information. The patient was admitted on the medical site for dizziness, lightheadedness, and headache. PLAN: Continue current management. This mortgage or loan underwriter recommend to continue Wellbutrin because the patient was taking that for past 4 days and if the patient tolerated that well, we will not discontinue that. The patient is willing to follow up with outpatient psychiatrist at [facility]. The patient knows the phone number and the name of the psychiatrist. The patient was advised to take medication as it was prescribed. The patient asked about Adderall for her depression and this mortgage or loan underwriter advised the patient not to take better relative this stage because the patient would have psychotic symptoms and if the patient was not diagnosed with ADHD or the patient did not take that medication before this, mortgage or loan underwriter would not recommend to start this medication for now, but the patient denied any thoughts of harming herself or others. The patient presented to be not in any imminent danger to self or others. This mortgage or loan underwriter will sign off from this case. Should you have any questions give me a call back. Thank you very much for allowing us to participate in care of your patient. Carla Wilkinson MD
[2017-04-18] MEDS: Insulin Reg-LOW-Coverage SC SCH ×4 (09:58→22:29)
[2017-04-18] MEDS: Magnesium Oxide 400 mg Tab UD PO SCH (10:01)
[2017-04-18] MEDS: Vancomycin 25 MG/ML PO SCH ×4 (10:17→21:13)
[2017-04-18] MEDS: buPROPion 150 mg/24 Hours XL Tab PO SCH (14:10)
[2017-04-18] MEDS ORDERED: Propofol 10 mg/ml Inj (20 ML) ONE (15:02)
[2017-04-18] MEDS: Lidocaine 5% Patch TOP SCH (18:01)
[2017-04-18] MEDS: Sodium Chloride 0.9% 1,000 ML IV SCH (18:06)
--- NOTE | 2017-04-18 23:20 | CP.PCM.PN ---
Subjective - Date & Time of Evaluation Date of Evaluation: 04/18/17 Time of Evaluation: 11:00 - Subjective Subjective: Patient reports loose stool with decreasing frequency, tolerating diet; Objective - Vital Signs/Intake and Output Vital Signs (last 24 hours): Temp Pulse Resp BP Pulse Ox 98.3 F 75 18 174/87 H 99 04/18/17 16:03 04/18/17 22:00 04/18/17 16:03 04/18/17 16:03 04/18/17 16:03 - Medications Medications: Current Medications Acetaminophen/Butalbital/Caffeine (Fioricet) 1 tab PO Q4H PRN PRN Reason: Headache Last Admin: 04/16/17 10:46 Dose: 1 tab Atorvastatin Calcium (Lipitor) 80 mg PO DAILY [facility] Last Admin: 04/17/17 10:58 Dose: 80 mg Bupropion HCl (Wellbutrin Xl) 150 mg PO DAILY [facility] Last Admin: 04/18/17 14:10 Dose: Not Given Clopidogrel Bisulfate (Plavix) 75 mg PO DAILY [facility] Last Admin: 04/17/17 10:57 Dose: 75 mg Digoxin (Lanoxin) 0.125 mg PO 1400 [facility] Last Admin: 04/17/17 13:23 Dose: 0.125 mg Duloxetine HCl (Cymbalta) 20 mg PO DAILY [facility] Last Admin: 04/18/17 10:57 Dose: Not Given Furosemide (Lasix) 40 mg PO DAILY [facility] Last Admin: 04/14/17 09:47 Dose: 40 mg Hydrochlorothiazide (Hydrodiuril) 25 mg PO DAILY [facility] Last Admin: 04/14/17 09:39 Dose: 25 mg Potassium Chloride (Potassium Chloride 20 Meq/100 Ml) 20 meq in 100 mls @ 50 mls/hr IVPB Q12H [facility] Last Admin: 04/18/17 21:12 Dose: 50 mls/hr Potassium Chloride 40 meq/ (Sodium Chloride) 1,020 mls @ 80 mls/hr IV .[id number] [facility] Last Admin: 04/18/17 06:50 Dose: Not Given Sodium Chloride (Sodium Chloride 0.9%) 1,000 mls @ 100 mls/hr IV .Q10H [facility] Last Admin: 04/18/17 18:06 Dose: 100 mls/hr Insulin Human Regular (Humulin R Low) 0 units SC ACHS [facility] PRN Reason: Protocol Last Admin: 04/18/17 22:29 Dose: Not Given Lidocaine (Lidoderm) 1 ea TOP DAILY [facility] Last Admin: 04/18/17 18:01 Dose: 1 ea Lisinopril (Zestril) 20 mg PO DAILY [facility] Last Admin: 04/18/17 10:15 Dose: 20 mg Magnesium Oxide (Mag-Ox) 400 mg PO BID [facility] Last Admin: 04/18/17 10:01 Dose: Not Given Metformin HCl (Glucophage) 500 mg PO BID [facility] Last Admin: 04/18/17 17:58 Dose: Not Given Mirtazapine (Remeron) 15 mg PO HS PRN PRN Reason: Insomnia Last Admin: 04/18/17 21:14 Dose: 15 mg Propranolol HCl (Inderal) 40 mg PO DAILY [facility] Last Admin: 04/18/17 10:00 Dose: Not Given Vancomycin HCl (Vancocin 25 Mg/Ml (Oral Use)) 250 mg PO QID [facility] PRN Reason: Protocol Last Admin: 04/18/17 21:13 Dose: 250 mg - Labs Labs: 04/17/17 06:00 04/18/17 07:33 PT 11.4 Seconds (9.9-11.8) 04/18/17 07:33 INR 1.06 (0.93-1.08) 04/18/17 07:33 APTT 25.6 Seconds (23.7-30.8) 04/18/17 07:33 - Constitutional Appears: Well, No Acute Distress - Head Exam Head Exam: NORMAL INSPECTION - Eye Exam Eye Exam: Normal appearance - ENT Exam ENT Exam: Mucous Membranes Moist - Respiratory Exam Respiratory Exam: Clear to Ausculation Bilateral, NORMAL BREATHING PATTERN - Cardiovascular Exam Cardiovascular Exam: REGULAR RHYTHM, +S1, +S2 - GI/Abdominal Exam GI & Abdominal Exam: Soft. absent: Distended, Tenderness - Neurological Exam Neurological Exam: Alert, Awake - Psychiatric Exam Psychiatric exam: Normal Affect, Normal Mood - Skin Skin Exam: Warm. absent: Cyanosis Assessment and Plan (1) Hypokalemia Assessment & Plan: Resolved with improvement in diarrhea; will keep KCl in IVF for now; Status: Acute (2) CKD (chronic kidney disease) stage 3, GFR 30-59 ml/min Assessment & Plan: Mild, relatively stable; awaiting renal and bladder US results; Status: Chronic (3) HTN (hypertension) Assessment & Plan: BP elevated today; will monitor for now, can likely d/c IVF if diarrhea improved and tolerating diet; continue to hold diuretics; Status: Chronic (4) Proteinuria Assessment & Plan: Awaiting urine studies for confirmation; Status: Chronic
--- NOTE | 2017-04-18 23:36 | CP.PCM.PN ---
Subjective - Date & Time of Evaluation Date of Evaluation: 04/18/17 Time of Evaluation: 15:00 Objective - Vital Signs/Intake and Output Vital Signs (last 24 hours): Temp Pulse Resp BP Pulse Ox 98.3 F 75 18 174/87 H 99 04/18/17 16:03 04/18/17 22:00 04/18/17 16:03 04/18/17 16:03 04/18/17 16:03 - Medications Medications: Current Medications Acetaminophen/Butalbital/Caffeine (Fioricet) 1 tab PO Q4H PRN PRN Reason: Headache Last Admin: 04/16/17 10:46 Dose: 1 tab Atorvastatin Calcium (Lipitor) 80 mg PO DAILY [facility] Last Admin: 04/17/17 10:58 Dose: 80 mg Bupropion HCl (Wellbutrin Xl) 150 mg PO DAILY [facility] Last Admin: 04/18/17 14:10 Dose: Not Given Clopidogrel Bisulfate (Plavix) 75 mg PO DAILY [facility] Last Admin: 04/17/17 10:57 Dose: 75 mg Digoxin (Lanoxin) 0.125 mg PO 1400 [facility] Last Admin: 04/17/17 13:23 Dose: 0.125 mg Duloxetine HCl (Cymbalta) 20 mg PO DAILY [facility] Last Admin: 04/18/17 10:57 Dose: Not Given Furosemide (Lasix) 40 mg PO DAILY [facility] Last Admin: 04/14/17 09:47 Dose: 40 mg Hydrochlorothiazide (Hydrodiuril) 25 mg PO DAILY [facility] Last Admin: 04/14/17 09:39 Dose: 25 mg Potassium Chloride (Potassium Chloride 20 Meq/100 Ml) 20 meq in 100 mls @ 50 mls/hr IVPB Q12H [facility] Last Admin: 04/18/17 21:12 Dose: 50 mls/hr Potassium Chloride 40 meq/ (Sodium Chloride) 1,020 mls @ 80 mls/hr IV .[id number] [facility] Last Admin: 04/18/17 06:50 Dose: Not Given Sodium Chloride (Sodium Chloride 0.9%) 1,000 mls @ 100 mls/hr IV .Q10H [facility] Last Admin: 04/18/17 18:06 Dose: 100 mls/hr Insulin Human Regular (Humulin R Low) 0 units SC ACHS [facility] PRN Reason: Protocol Last Admin: 04/18/17 22:29 Dose: Not Given Lidocaine (Lidoderm) 1 ea TOP DAILY [facility] Last Admin: 04/18/17 18:01 Dose: 1 ea Lisinopril (Zestril) 20 mg PO DAILY [facility] Last Admin: 04/18/17 10:15 Dose: 20 mg Magnesium Oxide (Mag-Ox) 400 mg PO BID [facility] Last Admin: 04/18/17 10:01 Dose: Not Given Metformin HCl (Glucophage) 500 mg PO BID [facility] Last Admin: 04/18/17 17:58 Dose: Not Given Mirtazapine (Remeron) 15 mg PO HS PRN PRN Reason: Insomnia Last Admin: 04/18/17 21:14 Dose: 15 mg Propranolol HCl (Inderal) 40 mg PO DAILY [facility] Last Admin: 04/18/17 10:00 Dose: Not Given Vancomycin HCl (Vancocin 25 Mg/Ml (Oral Use)) 250 mg PO QID [facility] PRN Reason: Protocol Last Admin: 04/18/17 21:13 Dose: 250 mg - Labs Labs: 04/17/17 06:00 04/18/17 07:33 PT 11.4 Seconds (9.9-11.8) 04/18/17 07:33 INR 1.06 (0.93-1.08) 04/18/17 07:33 APTT 25.6 Seconds (23.7-30.8) 04/18/17 07:33 Assessment and Plan - Assessment and Plan (Free Text) Assessment: this patient underwent upper GI endoscopy today. He was found to have a gastrogastric anastomosis communication between the fundus and the body noticed.. Patient has history of gastric bypass. Endoscopy evaluation did not reveal the gastric bypass. No ulcerations or polyp noticed. Patient was on Plavix biopsies were not taken We would consider GI series to further evaluate this patient would also benefit from colonoscopy evaluation , We will discuss with the patient's daughter regarding this
--- NOTE | 2017-04-19 00:26 | PN ---
DATE: SUBJECTIVE: This is a 66-year-old female. The patient is seen and examined on the bedside in the evening in the telemetry, status post upper endoscopy, still has diarrhea, according to the patient she went 5 times. No nausea or vomiting. No chest pain, no palpitation. No headache, no dizziness. PHYSICAL EXAMINATION: VITAL SIGNS: Temperature 98.3, pulse 74, blood pressure 174/80 , and respiratory rate 18. HEENT: Head is normocephalic and atraumatic. Eyes; PERRLA. Extraocular muscles are intact. Conjunctivae are clear. Nose is patent. Mucous membranes are moist. NECK: Supple. No carotid bruits. No JVD. No thyromegaly. CHEST: Bilaterally symmetrical. HEART: S1 and S2 positive. LUNGS: Clear to auscultation. ABDOMEN: Soft. Bowel sounds are positive. No organomegaly. EXTREMITIES: No edema. No cyanosis. NEUROLOGIC: The patient is awake and alert. Moving all 4 extremities. No focal deficits. MEDICATIONS: Cymbalta, Fioricet, Glucophage, insulin, hydrochlorothiazide, Inderal, Lanoxin, furosemide, Lidoderm, Lipitor, magnesium oxide, Plavix, potassium, Remeron, NS, Zestril, Wellbutrin, and vancomycin. LABORATORY DATA: White blood cells 4.9, hemoglobin 12.0, hematocrit 35.0, and platelets 153. Sodium 143, potassium 4.2, BUN 13, creatinine 1.2, and glucose 51. ASSESSMENT AND PLAN: Ms. Willow Cast is a 66-year-old lady with history of leukopenia, improved; history of anemia, improved; history of hypokalemia, improved; hyperchloremia; hypoglycemia; proteinuria; glucosuria; hematuria; and urinary tract infection. Endomysial immunoglobulin A antibody is positive. Went for upper endoscopy today, showed gastritis and biopsy is done. Went for renal and bladder ultrasound and results are pending. Seen by Dr. Powell and Lissa Hearn' notes. History of hypertension, coronary artery disease status post cardiac stenting, congestive heart failure, systolic dysfunction, asthma, still having diarrhea, Clostridium difficile toxin colitis, is on vancomycin; proteinuria. Blood pressure is not very controlled well. Gear Shaper Set Up Operator is on the case. Hope they will adjust blood pressure medication. Electrolyte imbalance, fixed; chronic kidney disease, stage III, GFR between 30 to 59. Discussion done with GI and the patient's nursing staff. We will follow. Fariha Olvera MD MTDHaris
[2017-04-19 07:25] LABS: ALB/GLOB RATIO 1.4 (1.1-1.8); BILIRUBIN,TOTAL 0.6 mg/dL (0.2-1.3); POTASSIUM 4.5 mmol/L (3.6-5.0); TOTAL PROTEIN 6.1 g/dL (5.8-8.3)
[2017-04-19] MEDS: Insulin Reg-LOW-Coverage SC SCH ×4 (09:04→22:50)
[2017-04-19] MEDS: Sodium Chloride 0.9% 1,000 ML IV SCH (10:54)
[2017-04-19] MEDS: Vancomycin 25 MG/ML PO SCH ×4 (10:54→22:53)
[2017-04-19] MEDS: Lidocaine 5% Patch TOP SCH (11:10)
[2017-04-19] MEDS: buPROPion 150 mg/24 Hours XL Tab PO SCH (11:13)
[2017-04-19] MEDS: Magnesium Oxide 400 mg Tab UD PO SCH ×2 (11:18→17:49)
--- NOTE | 2017-04-19 12:31 | CP.PCM.PN ---
<Lissa Hearn - Last Filed: 04/19/17 12:32> Subjective - Date & Time of Evaluation Date of Evaluation: 04/19/17 Time of Evaluation: 09:30 - Subjective Subjective: Seen and examined at the bedside earlier this morning, patient denies diarrhea, nausea, vomiting or abdominal pain. Had endoscopy yesterday found to have gastritis.no acute overnight events or new complaints. Objective - Vital Signs/Intake and Output Vital Signs (last 24 hours): Temp Pulse Resp BP Pulse Ox 98.4 F 79 18 111/68 99 04/19/17 12:00 04/19/17 12:00 04/19/17 12:00 04/19/17 12:00 04/18/17 16:03 Intake and Output: 04/19/17 04/19/17 06:59 18:59 Intake Total 2320 Output Total 2 Balance 2318 - Medications Medications: Current Medications Acetaminophen/Butalbital/Caffeine (Fioricet) 1 tab PO Q4H PRN PRN Reason: Headache Last Admin: 04/16/17 10:46 Dose: 1 tab Atorvastatin Calcium (Lipitor) 80 mg PO DAILY [facility] Last Admin: 04/19/17 11:11 Dose: 80 mg Bupropion HCl (Wellbutrin Xl) 150 mg PO DAILY [facility] Last Admin: 04/19/17 11:13 Dose: 150 mg Clopidogrel Bisulfate (Plavix) 75 mg PO DAILY [facility] Last Admin: 04/19/17 11:09 Dose: 75 mg Digoxin (Lanoxin) 0.125 mg PO 1400 [facility] Last Admin: 04/17/17 13:23 Dose: 0.125 mg Duloxetine HCl (Cymbalta) 20 mg PO DAILY [facility] Last Admin: 04/19/17 11:08 Dose: 20 mg Furosemide (Lasix) 40 mg PO DAILY [facility] Last Admin: 04/14/17 09:47 Dose: 40 mg Hydrochlorothiazide (Hydrodiuril) 25 mg PO DAILY [facility] Last Admin: 04/19/17 11:09 Dose: 25 mg Potassium Chloride (Potassium Chloride 20 Meq/100 Ml) 20 meq in 100 mls @ 50 mls/hr IVPB Q12H [facility] Last Admin: 04/19/17 10:48 Dose: Not Given Sodium Chloride (Sodium Chloride 0.9%) 1,000 mls @ 100 mls/hr IV .Q10H [facility] Last Admin: 04/19/17 10:54 Dose: Not Given Insulin Human Regular (Humulin R Low) 0 units SC ACHS [facility] PRN Reason: Protocol Last Admin: 04/19/17 09:04 Dose: Not Given Lidocaine (Lidoderm) 1 ea TOP DAILY [facility] Last Admin: 04/19/17 11:10 Dose: 1 ea Lisinopril (Zestril) 20 mg PO DAILY [facility] Last Admin: 04/19/17 11:10 Dose: 20 mg Magnesium Oxide (Mag-Ox) 400 mg PO BID [facility] Last Admin: 04/19/17 11:18 Dose: 400 mg Metformin HCl (Glucophage) 500 mg PO BID [facility] Last Admin: 04/19/17 11:03 Dose: 500 mg Mirtazapine (Remeron) 15 mg PO HS PRN PRN Reason: Insomnia Last Admin: 04/18/17 21:14 Dose: 15 mg Propranolol HCl (Inderal) 40 mg PO DAILY [facility] Last Admin: 04/19/17 11:03 Dose: 40 mg Vancomycin HCl (Vancocin 25 Mg/Ml (Oral Use)) 250 mg PO QID [facility] PRN Reason: Protocol Last Admin: 04/19/17 10:54 Dose: 250 mg - Labs Labs: 04/17/17 06:00 04/19/17 06:45 PT 11.4 Seconds (9.9-11.8) 04/18/17 07:33 INR 1.06 (0.93-1.08) 04/18/17 07:33 APTT 25.6 Seconds (23.7-30.8) 04/18/17 07:33 - Constitutional Appears: No Acute Distress - Head Exam Head Exam: NORMOCEPHALIC - Eye Exam Eye Exam: Normal appearance. absent: Scleral icterus - ENT Exam ENT Exam: Mucous Membranes Moist - Respiratory Exam Respiratory Exam: NORMAL BREATHING PATTERN. absent: Respiratory Distress - Cardiovascular Exam Cardiovascular Exam: +S1, +S2 - GI/Abdominal Exam GI & Abdominal Exam: Soft, Normal Bowel Sounds. absent: Guarding, Tenderness, Rebound - Neurological Exam Neurological Exam: Alert, Awake, Oriented x3 (forgetful at times) - Skin Skin Exam: Dry, Warm Assessment and Plan - Assessment and Plan (Free Text) Assessment: Assessment: Status post endoscopy, found gastritis Celiac disease serology suggestive of celiac disease Hypokalemia Cdiff colitis Dizziness B12 deficiency Weight loss Chronic diarrhea Renal Insuffiency History of gastric bypass Coronary artery disease status post cardiac catheterization, on Plavix. Hypertension Diabetes mellitus Plan: change diet to gluten-free on Plavix continue Oral Vancomycin Continue monitor electrolytes and replete potassium as necessary Continued GI and DVT prophylaxis Cardiology and neurology follow-up Patient would benefit from elective outpatient colonoscopy,currently having treatment for C. difficile colitis, can consider after treatment. last message for patient daughter Elena Morgan, to inform of endoscopy results, office number and endoscopy unit number given. Seen and discussed with Dr. Boyer. <Gee Boyer V - Last Filed: 04/19/17 21:03> Objective - Vital Signs/Intake and Output Vital Signs (last 24 hours): Temp Pulse Resp BP Pulse Ox 98.7 F 66 18 143/76 96 04/19/17 17:37 04/19/17 17:37 04/19/17 17:37 04/19/17 17:37 04/19/17 17:37 - Medications Medications: Current Medications Acetaminophen/Butalbital/Caffeine (Fioricet) 1 tab PO Q4H PRN PRN Reason: Headache Last Admin: 04/16/17 10:46 Dose: 1 tab Atorvastatin Calcium (Lipitor) 80 mg PO DAILY [facility] Last Admin: 04/19/17 11:11 Dose: 80 mg Bupropion HCl (Wellbutrin Xl) 150 mg PO DAILY [facility] Last Admin: 04/19/17 11:13 Dose: 150 mg Clopidogrel Bisulfate (Plavix) 75 mg PO DAILY [facility] Last Admin: 04/19/17 11:09 Dose: 75 mg Digoxin (Lanoxin) 0.125 mg PO 1400 [facility] Last Admin: 04/19/17 14:15 Dose: 0.125 mg Duloxetine HCl (Cymbalta) 20 mg PO DAILY [facility] Last Admin: 04/19/17 11:08 Dose: 20 mg Furosemide (Lasix) 40 mg PO DAILY [facility] Last Admin: 04/14/17 09:47 Dose: 40 mg Hydrochlorothiazide (Hydrodiuril) 25 mg PO DAILY [facility] Last Admin: 04/19/17 11:09 Dose: 25 mg Potassium Chloride (Potassium Chloride 20 Meq/100 Ml) 20 meq in 100 mls @ 50 mls/hr IVPB Q12H [facility] Last Admin: 04/19/17 10:48 Dose: Not Given Sodium Chloride (Sodium Chloride 0.9%) 1,000 mls @ 100 mls/hr IV .Q10H [facility] Last Admin: 04/19/17 10:54 Dose: Not Given Insulin Human Regular (Humulin R Low) 0 units SC ACHS [facility] PRN Reason: Protocol Last Admin: 04/19/17 17:10 Dose: Not Given Lidocaine (Lidoderm) 1 ea TOP DAILY [facility] Last Admin: 04/19/17 11:10 Dose: 1 ea Lisinopril (Zestril) 20 mg PO DAILY [facility] Last Admin: 04/19/17 11:10 Dose: 20 mg Magnesium Oxide (Mag-Ox) 400 mg PO BID [facility] Last Admin: 04/19/17 17:49 Dose: 400 mg Metformin HCl (Glucophage) 500 mg PO BID [facility] Last Admin: 04/19/17 17:53 Dose: Not Given Mirtazapine (Remeron) 15 mg PO HS PRN PRN Reason: Insomnia Last Admin: 04/18/17 21:14 Dose: 15 mg Propranolol HCl (Inderal) 40 mg PO DAILY [facility] Last Admin: 04/19/17 11:03 Dose: 40 mg Vancomycin HCl (Vancocin 25 Mg/Ml (Oral Use)) 250 mg PO QID [facility] PRN Reason: Protocol Last Admin: 04/19/17 17:52 Dose: 250 mg - Labs Labs: 04/17/17 06:00 04/19/17 06:45 PT 11.4 Seconds (9.9-11.8) 04/18/17 07:33 INR 1.06 (0.93-1.08) 04/18/17 07:33 APTT 25.6 Seconds (23.7-30.8) 04/18/17 07:33 Attending/Attestation - Attestation I have personally seen and examined this patient.: Yes I have fully participated in the care of the patient.: Yes I have reviewed all pertinent clinical information, including history, physical exam and plan: Yes Notes (Text): This is an addendum to GI progress report dictated by Lissa Hearn APN.The patient was seen and examined earlier. Medical records, lab studies, imagings were reviewed. Last 24 hours events reviewed. Agreed with the above treatment plan as outlined in Lissa Hearn APN's notes the with the addition of the following Patient is now agitated she doesn't want to take the prep celiac diet. Patient does have B12 deficiency and a celiac disease profile was also positive. EGD done yesterday showed a strange a bariatric surgery patient does have another communication fundus to body opening. We would change her back to regular food if the patient does not want to take the celiac diet at this time. Will discuss with the patient's daughter who can explained to the patient slowly to make the changes in the diet later. thank you very much Mena Sánchez participant in the care of the patient 04/19/17 20:59
[2017-04-19] MEDS: Digoxin 125 mcg (0.125 mg) Tab PO SCH (14:15)
--- NOTE | 2017-04-19 14:46 | US ---
PROCEDURE: Ultrasound of the Kidneys HISTORY: CKD COMPARISON: None available. TECHNIQUE: Sonogram of the kidneys. FINDINGS: RIGHT KIDNEY: Measures: 8.8 x 4.0 x 5.0 cm. Normal in size, contour and echogenicity. No stone, solid mass lesion or hydronephrosis visualized. LEFT KIDNEY: Measures: 9.6 x 4.9 x 4.4 cm. Normal in size, contour and echogenicity. No stone, solid mass lesion or hydronephrosis visualized. OTHER FINDINGS: None IMPRESSION: Unremarkable renal sonogram.
--- NOTE | 2017-04-19 14:48 | US ---
PROCEDURE: HISTORY: please check post void residual volume COMPARISON: None TECHNIQUE: Transabdominal pelvic imaging attention to the bladder FINDINGS: No intra luminal bladder masses. No bladder wall thickening. Prevoid urine volume 185 mL Postvoid residual urine volume 11 mL Bilateral ureteral jets noted. IMPRESSION: 11 mm postvoid residual urine volume. Otherwise unremarkable
--- NOTE | 2017-04-19 20:13 | CP.PCM.PN ---
Subjective - Date & Time of Evaluation Date of Evaluation: 04/19/17 Time of Evaluation: 11:00 - Subjective Subjective: Patient reports no more diarrhea; tolerating diet well; Objective - Vital Signs/Intake and Output Vital Signs (last 24 hours): Temp Pulse Resp BP Pulse Ox 98.7 F 66 18 143/76 96 04/19/17 17:37 04/19/17 17:37 04/19/17 17:37 04/19/17 17:37 04/19/17 17:37 - Medications Medications: Current Medications Acetaminophen/Butalbital/Caffeine (Fioricet) 1 tab PO Q4H PRN PRN Reason: Headache Last Admin: 04/16/17 10:46 Dose: 1 tab Atorvastatin Calcium (Lipitor) 80 mg PO DAILY [facility] Last Admin: 04/19/17 11:11 Dose: 80 mg Bupropion HCl (Wellbutrin Xl) 150 mg PO DAILY [facility] Last Admin: 04/19/17 11:13 Dose: 150 mg Clopidogrel Bisulfate (Plavix) 75 mg PO DAILY [facility] Last Admin: 04/19/17 11:09 Dose: 75 mg Digoxin (Lanoxin) 0.125 mg PO 1400 [facility] Last Admin: 04/19/17 14:15 Dose: 0.125 mg Duloxetine HCl (Cymbalta) 20 mg PO DAILY [facility] Last Admin: 04/19/17 11:08 Dose: 20 mg Furosemide (Lasix) 40 mg PO DAILY [facility] Last Admin: 04/14/17 09:47 Dose: 40 mg Hydrochlorothiazide (Hydrodiuril) 25 mg PO DAILY [facility] Last Admin: 04/19/17 11:09 Dose: 25 mg Potassium Chloride (Potassium Chloride 20 Meq/100 Ml) 20 meq in 100 mls @ 50 mls/hr IVPB Q12H [facility] Last Admin: 04/19/17 10:48 Dose: Not Given Sodium Chloride (Sodium Chloride 0.9%) 1,000 mls @ 100 mls/hr IV .Q10H [facility] Last Admin: 04/19/17 10:54 Dose: Not Given Insulin Human Regular (Humulin R Low) 0 units SC ACHS [facility] PRN Reason: Protocol Last Admin: 04/19/17 17:10 Dose: Not Given Lidocaine (Lidoderm) 1 ea TOP DAILY [facility] Last Admin: 04/19/17 11:10 Dose: 1 ea Lisinopril (Zestril) 20 mg PO DAILY [facility] Last Admin: 04/19/17 11:10 Dose: 20 mg Magnesium Oxide (Mag-Ox) 400 mg PO BID [facility] Last Admin: 04/19/17 17:49 Dose: 400 mg Metformin HCl (Glucophage) 500 mg PO BID [facility] Last Admin: 04/19/17 17:53 Dose: Not Given Mirtazapine (Remeron) 15 mg PO HS PRN PRN Reason: Insomnia Last Admin: 04/18/17 21:14 Dose: 15 mg Propranolol HCl (Inderal) 40 mg PO DAILY [facility] Last Admin: 04/19/17 11:03 Dose: 40 mg Vancomycin HCl (Vancocin 25 Mg/Ml (Oral Use)) 250 mg PO QID [facility] PRN Reason: Protocol Last Admin: 04/19/17 17:52 Dose: 250 mg - Labs Labs: 04/17/17 06:00 04/19/17 06:45 PT 11.4 Seconds (9.9-11.8) 04/18/17 07:33 INR 1.06 (0.93-1.08) 04/18/17 07:33 APTT 25.6 Seconds (23.7-30.8) 04/18/17 07:33 - Constitutional Appears: Non-toxic, No Acute Distress - Head Exam Head Exam: NORMAL INSPECTION - Eye Exam Eye Exam: absent: Scleral icterus - ENT Exam ENT Exam: Mucous Membranes Moist - Respiratory Exam Respiratory Exam: Clear to Ausculation Bilateral, NORMAL BREATHING PATTERN - Cardiovascular Exam Cardiovascular Exam: RRR, +S1, +S2 - GI/Abdominal Exam GI & Abdominal Exam: Soft. absent: Distended, Tenderness - Extremities Exam Additional comments: no leg edema; - Neurological Exam Neurological Exam: Alert, Awake - Psychiatric Exam Psychiatric exam: Normal Affect, Normal Mood - Skin Skin Exam: Normal Color, Warm. absent: Cyanosis Assessment and Plan (1) Hypokalemia Assessment & Plan: Resolved with diarrhea having improved; monitor; Status: Resolved (2) CKD (chronic kidney disease) stage 3, GFR 30-59 ml/min Assessment & Plan: Relatively mild, non-proteinuric disease, likely secondary to renovascular disease with patient having multiple risk factors for atherosclerotic disease, continue anti-platelet agent/statin; Status: Chronic (3) HTN (hypertension) Assessment & Plan: BP controlled on lisinopril 20 mg daily, continue to hold diuretics, can restart as needed as outpatient; Status: Chronic (4) Proteinuria Assessment & Plan: Seen on UA but no microalbuminuria; should continue to monitor as outpatient; Status: Chronic - Assessment and Plan (Free Text) Assessment: Thank you for this consult, we will sign off; please feel free to call us back anytime.
--- NOTE | 2017-04-20 02:50 | PN ---
DATE: SUBJECTIVE: The patient is a 66-year-old female. The patient seen and examined on the bedside, looking comfortable. According to her, today no more diarrhea. No nausea or vomiting. No abdominal pain. Had endoscopy yesterday, found to have gastritis. No acute overnight event or new complaints. No fever, no chills. No swelling of the legs. PHYSICAL EXAMINATION: VITAL SIGNS: Temperature 98.4, pulse 79, respiratory rate 18, blood pressure 111/68, pulse oximetry 99%. HEENT: Head, normocephalic and atraumatic. Eyes, PERRLA. Extraocular muscles intact. Conjunctivae clear. Nose patent. Mucous membrane moist. NECK: Supple. No carotid bruits. No JVD or thyromegaly. CHEST: Bilaterally symmetrical. HEART: S1, S2 positive. LUNGS: Clear to auscultation. ABDOMEN: Soft. Bowel sounds present. No organomegaly. EXTREMITIES: No edema. No cyanosis. NEUROLOGIC: The patient is awake and alert. Moving all 4 extremities. No focal deficit. MEDICATIONS: Fioricet, Lipitor, Lidoderm, Plavix, Lanoxin, Cymbalta, Lasix, hydrochlorothiazide, NS, insulin, Zestril, magnesium oxide, Glucophage, Remeron, Inderal, and vancomycin. LABORATORY DATA: White blood cell is 4.9, hemoglobin 12.0, hematocrit 35.0, platelets 153. Sodium 141, potassium 4.5, BUN 11, creatinine 1.2, glucose 89. ASSESSMENT AND PLAN: Ms. Willow Cast is a 66-year-old lady, status post upper endoscopy, found gastritis, history of celiac disease, history of hypokalemia, replaced, Clostridium difficile toxin colitis, getting vancomycin; dizziness, B12 deficiency. The patient has history of gastric bypass, but as per Dr. Boyer after endoscopy, this gastric bypass and anatomical situation is different, weight loss, chronic diarrhea, acute on chronic renal insufficiency, history of coronary artery disease, status post cardiac catheterization, on Plavix; hypertension, diabetes mellitus, change diet into gluten-free. Continue oral vancomycin, replaced electrolytes. Gastrointestinal/deep venous thrombosis prophylaxis. Cardiology and Neurology is on the case. Gastroenterology is on the case also. Discussion done with Dr. Boyer. According to gastrointestinal, the patient need colonoscopy, can be done electively as outpatient. Currently, the patient is having Clostridium difficile toxin colitis, getting treatment after finishing the Clostridium difficile toxin current treatment, we will consider colonoscopy. Dr. Boyer spoke to the patient's daughter and informed her about endoscopy results. Gastrointestinal and deep venous thrombosis prophylaxis. We will followup. Fariha Olvera MD
[2017-04-20 07:06] LABS: MEAN CELL VOLUME 97.2 fl (80.0-105.0); MEAN CORPUSCULAR HEMOGLOBIN 33.6 pg (25.0-35.0); MEAN CORPUSCULAR HGB CONC 34.6 g/dl (31.0-37.0); MEAN PLATELET VOLUME 9.6 fl (7.0-11.0); WHITE BLOOD COUNT 4.1 10^3/ul (4.5-11.0)
[2017-04-20 07:31] LABS: CALCIUM 9.4 mg/dL (8.4-10.5); POTASSIUM 4.2 mmol/L (3.6-5.0)
[2017-04-20] MEDS: Insulin Reg-LOW-Coverage SC SCH ×4 (08:18→22:21)
[2017-04-20] MEDS: Lidocaine 5% Patch TOP SCH (09:38)
[2017-04-20] MEDS: Vancomycin 25 MG/ML PO SCH ×4 (09:40→22:18)
[2017-04-20] MEDS: buPROPion 150 mg/24 Hours XL Tab PO SCH (09:41)
[2017-04-20] MEDS: Magnesium Oxide 400 mg Tab UD PO SCH ×2 (09:44→17:55)
--- NOTE | 2017-04-20 11:09 | CP.PCM.PN ---
<Lissa Hearn - Last Filed: 04/20/17 17:09> Subjective - Date & Time of Evaluation Date of Evaluation: 04/20/17 Time of Evaluation: 09:35 - Subjective Subjective: S&E at bedside, no acute overnight events. Had 1 semi loose BM last night. No overt GI bleed, N/V or abdominal pain. Ate the gluten free diet. No new complaints. Objective - Vital Signs/Intake and Output Vital Signs (last 24 hours): Temp Pulse Resp BP Pulse Ox 98.0 F 75 20 110/75 100 04/20/17 07:30 04/20/17 09:44 04/20/17 07:30 04/20/17 09:44 04/20/17 07:30 Intake and Output: 04/20/17 04/20/17 06:59 18:59 Intake Total 880 120 Balance 880 120 - Medications Medications: Current Medications Acetaminophen/Butalbital/Caffeine (Fioricet) 1 tab PO Q4H PRN PRN Reason: Headache Last Admin: 04/16/17 10:46 Dose: 1 tab Atorvastatin Calcium (Lipitor) 80 mg PO DAILY [facility] Last Admin: 04/20/17 09:39 Dose: 80 mg Bupropion HCl (Wellbutrin Xl) 150 mg PO DAILY [facility] Last Admin: 04/20/17 09:41 Dose: 150 mg Clopidogrel Bisulfate (Plavix) 75 mg PO DAILY [facility] Last Admin: 04/20/17 09:44 Dose: 75 mg Digoxin (Lanoxin) 0.125 mg PO 1400 [facility] Last Admin: 04/19/17 14:15 Dose: 0.125 mg Duloxetine HCl (Cymbalta) 20 mg PO DAILY [facility] Last Admin: 04/20/17 09:36 Dose: 20 mg Furosemide (Lasix) 40 mg PO DAILY [facility] Last Admin: 04/14/17 09:47 Dose: 40 mg Hydrochlorothiazide (Hydrodiuril) 25 mg PO DAILY [facility] Last Admin: 04/20/17 09:37 Dose: 25 mg Potassium Chloride (Potassium Chloride 20 Meq/100 Ml) 20 meq in 100 mls @ 50 mls/hr IVPB Q12H [facility] Last Admin: 04/20/17 09:40 Dose: Not Given Sodium Chloride (Sodium Chloride 0.9%) 1,000 mls @ 100 mls/hr IV .Q10H [facility] Last Admin: 04/19/17 10:54 Dose: Not Given Insulin Human Regular (Humulin R Low) 0 units SC ACHS [facility] PRN Reason: Protocol Last Admin: 04/20/17 08:18 Dose: Not Given Lidocaine (Lidoderm) 1 ea TOP DAILY [facility] Last Admin: 04/20/17 09:38 Dose: 1 ea Lisinopril (Zestril) 20 mg PO DAILY [facility] Last Admin: 04/20/17 09:41 Dose: 20 mg Magnesium Oxide (Mag-Ox) 400 mg PO BID [facility] Last Admin: 04/20/17 09:44 Dose: 400 mg Metformin HCl (Glucophage) 500 mg PO BID [facility] Last Admin: 04/20/17 09:36 Dose: 500 mg Mirtazapine (Remeron) 15 mg PO HS PRN PRN Reason: Insomnia Last Admin: 04/19/17 22:53 Dose: 15 mg Propranolol HCl (Inderal) 40 mg PO DAILY [facility] Last Admin: 04/20/17 09:44 Dose: 40 mg Vancomycin HCl (Vancocin 25 Mg/Ml (Oral Use)) 250 mg PO QID [facility] PRN Reason: Protocol Last Admin: 04/20/17 09:40 Dose: 250 mg - Labs Labs: 04/20/17 06:40 04/20/17 06:40 PT 11.4 Seconds (9.9-11.8) 04/18/17 07:33 INR 1.06 (0.93-1.08) 04/18/17 07:33 APTT 25.6 Seconds (23.7-30.8) 04/18/17 07:33 - Constitutional Appears: No Acute Distress - Eye Exam Eye Exam: Normal appearance. absent: Scleral icterus - ENT Exam ENT Exam: Mucous Membranes Moist - Neck Exam Neck Exam: Normal Inspection - Respiratory Exam Respiratory Exam: NORMAL BREATHING PATTERN. absent: Respiratory Distress - Cardiovascular Exam Cardiovascular Exam: +S1, +S2 - GI/Abdominal Exam GI & Abdominal Exam: Soft, Normal Bowel Sounds. absent: Guarding, Tenderness, Organomegaly, Rebound - Extremities Exam Extremities Exam: Normal Capillary Refill. absent: Calf Tenderness, Pedal Edema - Neurological Exam Neurological Exam: Alert, Awake, Oriented x3 (forgetful at times) Assessment and Plan - Assessment and Plan (Free Text) Assessment: Assessment: Status post endoscopy, found gastritis Celiac disease serology suggestive of celiac disease Hypokalemia Cdiff colitis Dizziness B12 deficiency Weight loss Chronic diarrhea Renal Insuffiency History of gastric bypass Coronary artery disease status post cardiac catheterization, on Plavix. 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 difficile colitis, can consider after treatment. Recommend on upon discharge patient to complete 14 days total of PO vancomycin. On day #6 of vancomycin. Called pt daughter Elena Morgan and had detail discussion regarding EGD findings and positive Celiac Serology and change in diet of Gluten free diet. Patient daughter did express that patient may not be complaint with diet. Informed that dietitian to see patient to review diet and give information. Discuss importance for FU for Celiac Disease and oupt colon, can FU in our outpatient office or GI referral from PCP Dr. Clarke. Seen and discussed with Dr. Boyer. <Gee Boyer V - Last Filed: 04/20/17 22:22> Objective - Vital Signs/Intake and Output Vital Signs (last 24 hours): Temp Pulse Resp BP Pulse Ox 98.3 F 68 20 128/84 98 04/20/17 16:34 04/20/17 16:34 04/20/17 16:34 04/20/17 16:34 04/20/17 16:34 Intake and Output: 04/20/17 04/21/17 18:59 06:59 Intake Total 420 780 Balance 420 780 - Medications Medications: Current Medications Acetaminophen/Butalbital/Caffeine (Fioricet) 1 tab PO Q4H PRN PRN Reason: Headache Last Admin: 04/16/17 10:46 Dose: 1 tab Atorvastatin Calcium (Lipitor) 80 mg PO DAILY [facility] Last Admin: 04/20/17 09:39 Dose: 80 mg Bupropion HCl (Wellbutrin Xl) 150 mg PO DAILY [facility] Last Admin: 04/20/17 09:41 Dose: 150 mg Clopidogrel Bisulfate (Plavix) 75 mg PO DAILY [facility] Last Admin: 04/20/17 09:44 Dose: 75 mg Digoxin (Lanoxin) 0.125 mg PO 1400 [facility] Last Admin: 04/20/17 13:51 Dose: 0.125 mg Duloxetine HCl (Cymbalta) 20 mg PO DAILY [facility] Last Admin: 04/20/17 09:36 Dose: 20 mg Furosemide (Lasix) 40 mg PO DAILY [facility] Last Admin: 04/14/17 09:47 Dose: 40 mg Hydrochlorothiazide (Hydrodiuril) 25 mg PO DAILY [facility] Last Admin: 04/20/17 09:37 Dose: 25 mg Potassium Chloride (Potassium Chloride 20 Meq/100 Ml) 20 meq in 100 mls @ 50 mls/hr IVPB Q12H [facility] Last Admin: 04/20/17 09:40 Dose: Not Given Sodium Chloride (Sodium Chloride 0.9%) 1,000 mls @ 100 mls/hr IV .Q10H [facility] Last Admin: 04/19/17 10:54 Dose: Not Given Insulin Human Regular (Humulin R Low) 0 units SC ACHS [facility] PRN Reason: Protocol Last Admin: 04/20/17 19:53 Dose: Not Given Lidocaine (Lidoderm) 1 ea TOP DAILY [facility] Last Admin: 04/20/17 09:38 Dose: 1 ea Lisinopril (Zestril) 20 mg PO DAILY [facility] Last Admin: 04/20/17 09:41 Dose: 20 mg Magnesium Oxide (Mag-Ox) 400 mg PO BID [facility] Last Admin: 04/20/17 09:44 Dose: 400 mg Mirtazapine (Remeron) 15 mg PO HS PRN PRN Reason: Insomnia Last Admin: 04/20/17 22:18 Dose: 15 mg Propranolol HCl (Inderal) 40 mg PO DAILY [facility] Last Admin: 04/20/17 09:44 Dose: 40 mg Vancomycin HCl (Vancocin 25 Mg/Ml (Oral Use)) 250 mg PO QID [facility] PRN Reason: Protocol Last Admin: 04/20/17 22:18 Dose: 250 mg - Labs Labs: 04/20/17 06:40 04/20/17 06:40 PT 11.4 Seconds (9.9-11.8) 04/18/17 07:33 INR 1.06 (0.93-1.08) 04/18/17 07:33 APTT 25.6 Seconds (23.7-30.8) 04/18/17 07:33 Attending/Attestation - Attestation I have personally seen and examined this patient.: Yes I have fully participated in the care of the patient.: Yes I have reviewed all pertinent clinical information, including history, physical exam and plan: Yes Notes (Text): This is an addendum to GI progress report dictated by Lissa Hearn APN.The patient was seen and examined earlier. Medical records, lab studies, imagings were reviewed. Last 24 hours events reviewed. Agreed with the above treatment plan as outlined in Lissa Hearn APN's notes the with the addition of the following Abdomen soft no tenderness Diarrhea has significantly improved on by mouth vancomycin Plan is to complete the vancomycin for total of 14 days. Celiac diet Selective colonoscopy Supplement B12 on long-term basis 04/20/17 22:21
[2017-04-20] MEDS: Digoxin 125 mcg (0.125 mg) Tab PO SCH (13:51)
--- NOTE | 2017-04-21 02:51 | PN ---
DATE: SUBJECTIVE: The patient is a 66-year-old female. The patient is seen and examined on the bedside. Plan was to discharge the patient home today, but according to nursing staff, the patient is getting episodes of altered mental status. No acute event other than noted. She had one semi-loose bowel movement last night. No overt GI bleeding, nausea, vomiting or abdominal pain. She ate gluten-free diet. End of the day, nurse called me that the patient has episodes of hypoglycemia, we hold diabetic medications. PHYSICAL EXAMINATION VITAL SIGNS: Temperature is 98, pulse is 75, respiratory rate is 20, blood pressure is 110/75, and pulse oximetry is 100%. HEENT: Head is normocephalic and atraumatic. Eyes: PERRLA. Extraocular muscles are intact. Conjunctivae are clear. Nose is patent. Mucous membranes are moist. NECK: Supple. No carotid bruits. No JVD or thyromegaly. CHEST: Bilaterally symmetrical. HEART: S1 and S2 positive. LUNGS: Clear to auscultation. ABDOMEN: Soft. Bowel sounds present. No organomegaly. EXTREMITIES: No edema and no cyanosis. NEUROLOGIC: The patient is awake and alert. Moving all 4 extremities. No focal deficit. MEDICATIONS: Lipitor, Wellbutrin, Plavix, Lanoxin, Cymbalta, Lasix, hydrochlorothiazide, potassium, sodium, NS, insulin, Lidoderm, Zestril, magnesium oxide, Remeron, Inderal, and vancomycin. LABORATORY DATA: White blood cells is 4.1, hemoglobin is 11.1, hematocrit is 35.0, and platelets are 143. Sodium is 141, potassium is 4.2, BUN is 12, creatinine is 1.6 and glucose is 85. ASSESSMENT AND PLAN: Ms. Willow Cast is a 66-year-old lady with leukopenia, status post endoscopy, found gastritis, serology suggestive of celiac disease, history of hypokalemia, improved, Clostridium difficile toxin colitis, getting vancomycin, I renewed vancomycin today, dizziness, B12 deficiency, improving, weight loss, chronic diarrhea, improved, renal insufficiency, improved, history of gastric bypass, coronary artery disease with cardiac catheterization, on Plavix, hypertension, and diabetes mellitus. The patient is getting episodes of altered mental status, couple of times in 24 hours as per nursing staff. Call or re-consult with the psychiatrist and the neurologist because the patient is living alone, is not able to handle herself when she is altered mental status. Continue gluten-free diet, Plavix, vancomycin, monitor electrolyte especially potassium. Gastrointestinal and deep venous thrombosis prophylaxis. Cardiology and Neurology is on the case. According to Gastrointestinal, the patient will get elective outpatient colonoscopy and the patient should complete 14 days of p.o. vancomycin, today is day number 6. Gastrointestinal spoke to the patient's daughter compliant issue discussed with the patient and asked to be compliant. Meanwhile continue present treatment and repeat labs. We will follow. Fariha Olvera MD MTDD
[2017-04-21] MEDS: Insulin Reg-LOW-Coverage SC SCH ×4 (07:55→22:01)
[2017-04-21] MEDS: Magnesium Oxide 400 mg Tab UD PO SCH ×2 (09:56→18:34)
[2017-04-21] MEDS: Lidocaine 5% Patch TOP SCH (09:56)
[2017-04-21] MEDS: Vancomycin 25 MG/ML PO SCH ×4 (10:08→21:19)
--- NOTE | 2017-04-21 10:30 | CP.PCM.PN ---
<Usha Root - Last Filed: 04/21/17 11:11> Subjective - Date & Time of Evaluation Date of Evaluation: 04/21/17 Time of Evaluation: 10:27 - Subjective Subjective: Neurology Progress Note for Av Duarte PGY2 Patient seen and examined at bedside. As per nursing, there were no acute overnight events. As per nursing staff, patient gets confused at times. She is A &O x 3 most of the time, but forgets where she places things and sometimes forgets where she is. She denies having any numbness/tingling, slurred speech, facial droop, weakness, CP or SOB. Patient is currently being treated for C. diff. She reports her diarrhea has improved. Patient was also found to have celiac disease as well with Vit B12 deficiency. Objective - Vital Signs/Intake and Output Vital Signs (last 24 hours): Temp Pulse Resp BP Pulse Ox 98.4 F 65 20 127/63 99 04/21/17 07:42 04/21/17 10:09 04/21/17 07:42 04/21/17 10:09 04/21/17 07:42 Intake and Output: 04/21/17 04/21/17 06:59 18:59 Intake Total 1020 Balance 1020 - Medications Medications: Current Medications Acetaminophen/Butalbital/Caffeine (Fioricet) 1 tab PO Q4H PRN PRN Reason: Headache Last Admin: 04/16/17 10:46 Dose: 1 tab Atorvastatin Calcium (Lipitor) 80 mg PO DAILY [facility] Last Admin: 04/21/17 10:05 Dose: 80 mg Clopidogrel Bisulfate (Plavix) 75 mg PO DAILY [facility] Last Admin: 04/21/17 09:56 Dose: 75 mg Digoxin (Lanoxin) 0.125 mg PO 1400 [facility] Last Admin: 04/20/17 13:51 Dose: 0.125 mg Duloxetine HCl (Cymbalta) 20 mg PO DAILY [facility] Last Admin: 04/21/17 10:04 Dose: 20 mg Furosemide (Lasix) 40 mg PO DAILY [facility] Last Admin: 04/14/17 09:47 Dose: 40 mg Hydrochlorothiazide (Hydrodiuril) 25 mg PO DAILY [facility] Last Admin: 04/21/17 10:04 Dose: 25 mg Potassium Chloride (Potassium Chloride 20 Meq/100 Ml) 20 meq in 100 mls @ 50 mls/hr IVPB Q12H [facility] Last Admin: 04/20/17 09:40 Dose: Not Given Sodium Chloride (Sodium Chloride 0.9%) 1,000 mls @ 100 mls/hr IV .Q10H [facility] Last Admin: 04/19/17 10:54 Dose: Not Given Insulin Human Regular (Humulin R Low) 0 units SC ACHS [facility] PRN Reason: Protocol Last Admin: 04/21/17 07:55 Dose: Not Given Lidocaine (Lidoderm) 1 ea TOP DAILY [facility] Last Admin: 04/21/17 09:56 Dose: 1 ea Lisinopril (Zestril) 20 mg PO DAILY [facility] Last Admin: 04/21/17 10:09 Dose: 20 mg Magnesium Oxide (Mag-Ox) 400 mg PO BID [facility] Last Admin: 04/21/17 09:56 Dose: 400 mg Mirtazapine (Remeron) 15 mg PO HS PRN PRN Reason: Insomnia Last Admin: 04/20/17 22:18 Dose: 15 mg Propranolol HCl (Inderal) 40 mg PO DAILY [facility] Last Admin: 04/21/17 10:04 Dose: 40 mg Quetiapine Fumarate (Seroquel) 12.5 mg PO HS [facility] PRN Reason: Protocol Vancomycin HCl (Vancocin 25 Mg/Ml (Oral Use)) 250 mg PO QID [facility] PRN Reason: Protocol Last Admin: 04/21/17 10:08 Dose: 250 mg - Labs Labs: 04/20/17 06:40 04/20/17 06:40 PT 11.4 Seconds (9.9-11.8) 04/18/17 07:33 INR 1.06 (0.93-1.08) 04/18/17 07:33 APTT 25.6 Seconds (23.7-30.8) 04/18/17 07:33 - Constitutional Appears: No Acute Distress - Head Exam Head Exam: ATRAUMATIC, NORMAL INSPECTION, NORMOCEPHALIC - Eye Exam Eye Exam: Normal appearance, PERRL Pupil Exam: NORMAL ACCOMODATION, PERRL - ENT Exam ENT Exam: Mucous Membranes Moist - Neck Exam Neck Exam: Full ROM - Respiratory Exam Respiratory Exam: Clear to Ausculation Bilateral, NORMAL BREATHING PATTERN. absent: Rales, Rhonchi, Wheezes - Cardiovascular Exam Cardiovascular Exam: REGULAR RHYTHM, +S1, +S2. absent: Gallop, Rubs, Murmur - GI/Abdominal Exam GI & Abdominal Exam: Soft, Normal Bowel Sounds. absent: Rigid, Tenderness, Mass , Rebound - Extremities Exam Extremities Exam: Normal Inspection. absent: Calf Tenderness, Pedal Edema - Neurological Exam Neurological Exam: Alert, Awake, CN II-XII Intact, Oriented x3 - Psychiatric Exam Psychiatric exam: Normal Affect, Normal Mood - Skin Skin Exam: Dry, Intact, Normal Color, Warm Assessment and Plan - Assessment and Plan (Free Text) Assessment: This is a 66Y F with PMH HTN, CHF, DM, asthma, CAD s/p stent and possible TIA who came to ED for dizziness and headache. Head CT was noted to be negative for acute pathology. MRI brain showed mild volume loss and mild white matter changes which is nonspecific for chronic microvascular ischemia. It did not show any acute pathology. Confusion can be secondary to underlying dementia versus vitamin B12 deficiency versus delirium. Plan: - Continue to supplement Vit B12 - Will start Namenda 5mg - Avoid sedatives - Thiamine 100mg q8h - Patient can start Coenzyme Q10 as outpatient - Will follow up with patient as outpatient to further evaluate and prognosticate dementia Case seen, discussed and reviewed with Dr. Card. Av Root PGY2 <Dhaval Card - Last Filed: 04/21/17 13:35> Objective - Vital Signs/Intake and Output Vital Signs (last 24 hours): Temp Pulse Resp BP Pulse Ox 98.4 F 65 20 127/63 99 04/21/17 07:42 04/21/17 10:09 04/21/17 07:42 04/21/17 10:09 04/21/17 07:42 Intake and Output: 04/21/17 04/21/17 06:59 18:59 Intake Total 1020 260 Balance 1020 260 - Medications Medications: Current Medications Acetaminophen/Butalbital/Caffeine (Fioricet) 1 tab PO Q4H PRN PRN Reason: Headache Last Admin: 04/16/17 10:46 Dose: 1 tab Atorvastatin Calcium (Lipitor) 80 mg PO DAILY [facility] Last Admin: 04/21/17 10:05 Dose: 80 mg Clopidogrel Bisulfate (Plavix) 75 mg PO DAILY [facility] Last Admin: 04/21/17 09:56 Dose: 75 mg Digoxin (Lanoxin) 0.125 mg PO 1400 [facility] Last Admin: 04/20/17 13:51 Dose: 0.125 mg Duloxetine HCl (Cymbalta) 20 mg PO DAILY [facility] Last Admin: 04/21/17 10:04 Dose: 20 mg Furosemide (Lasix) 40 mg PO DAILY [facility] Last Admin: 04/14/17 09:47 Dose: 40 mg Hydrochlorothiazide (Hydrodiuril) 25 mg PO DAILY [facility] Last Admin: 04/21/17 10:04 Dose: 25 mg Potassium Chloride (Potassium Chloride 20 Meq/100 Ml) 20 meq in 100 mls @ 50 mls/hr IVPB Q12H [facility] Last Admin: 04/20/17 09:40 Dose: Not Given Sodium Chloride (Sodium Chloride 0.9%) 1,000 mls @ 100 mls/hr IV .Q10H [facility] Last Admin: 04/19/17 10:54 Dose: Not Given Insulin Human Regular (Humulin R Low) 0 units SC ACHS [facility] PRN Reason: Protocol Last Admin: 04/21/17 12:51 Dose: Not Given Lidocaine (Lidoderm) 1 ea TOP DAILY [facility] Last Admin: 04/21/17 09:56 Dose: 1 ea Lisinopril (Zestril) 20 mg PO DAILY [facility] Last Admin: 04/21/17 10:09 Dose: 20 mg Magnesium Oxide (Mag-Ox) 400 mg PO BID [facility] Last Admin: 04/21/17 09:56 Dose: 400 mg Memantine (Namenda) 5 mg PO DAILY [facility] Last Admin: 04/21/17 10:50 Dose: 5 mg Mirtazapine (Remeron) 15 mg PO HS PRN PRN Reason: Insomnia Last Admin: 04/20/17 22:18 Dose: 15 mg Propranolol HCl (Inderal) 40 mg PO DAILY [facility] Last Admin: 04/21/17 10:04 Dose: 40 mg Quetiapine Fumarate (Seroquel) 12.5 mg PO HS [facility] PRN Reason: Protocol Thiamine HCl (Vitamin B1 Tab) 100 mg PO Q8H [facility] Last Admin: 04/21/17 11:51 Dose: 100 mg Vancomycin HCl (Vancocin 25 Mg/Ml (Oral Use)) 250 mg PO QID [facility] PRN Reason: Protocol Last Admin: 04/21/17 13:00 Dose: 250 mg - Labs Labs: 04/20/17 06:40 04/20/17 06:40 PT 11.4 Seconds (9.9-11.8) 04/18/17 07:33 INR 1.06 (0.93-1.08) 04/18/17 07:33 APTT 25.6 Seconds (23.7-30.8) 04/18/17 07:33 Attending/Attestation - Attestation I have personally seen and examined this patient.: Yes I have fully participated in the care of the patient.: Yes I have reviewed all pertinent clinical information, including history, physical exam and plan: Yes
--- NOTE | 2017-04-21 12:28 | CP.PCM.PN ---
<Merlin,Kovil V - Last Filed: 04/21/17 20:57> Objective - Vital Signs/Intake and Output Vital Signs (last 24 hours): Temp Pulse Resp BP Pulse Ox 98 F 80 20 120/60 98 04/21/17 16:00 04/21/17 16:00 04/21/17 16:00 04/21/17 16:00 04/21/17 16:00 Intake and Output: 04/21/17 04/22/17 18:59 06:59 Intake Total 260 4 Balance 260 4 - Medications Medications: Current Medications Acetaminophen/Butalbital/Caffeine (Fioricet) 1 tab PO Q4H PRN PRN Reason: Headache Last Admin: 04/16/17 10:46 Dose: 1 tab Atorvastatin Calcium (Lipitor) 80 mg PO DAILY [facility] Last Admin: 04/21/17 10:05 Dose: 80 mg Clopidogrel Bisulfate (Plavix) 75 mg PO DAILY [facility] Last Admin: 04/21/17 09:56 Dose: 75 mg Digoxin (Lanoxin) 0.125 mg PO 1400 [facility] Last Admin: 04/21/17 13:55 Dose: 0.125 mg Duloxetine HCl (Cymbalta) 20 mg PO DAILY [facility] Last Admin: 04/21/17 10:04 Dose: 20 mg Furosemide (Lasix) 40 mg PO DAILY [facility] Last Admin: 04/14/17 09:47 Dose: 40 mg Hydrochlorothiazide (Hydrodiuril) 25 mg PO DAILY [facility] Last Admin: 04/21/17 10:04 Dose: 25 mg Potassium Chloride (Potassium Chloride 20 Meq/100 Ml) 20 meq in 100 mls @ 50 mls/hr IVPB Q12H [facility] Last Admin: 04/20/17 09:40 Dose: Not Given Sodium Chloride (Sodium Chloride 0.9%) 1,000 mls @ 100 mls/hr IV .Q10H [facility] Last Admin: 04/19/17 10:54 Dose: Not Given Insulin Human Regular (Humulin R Low) 0 units SC ACHS [facility] PRN Reason: Protocol Last Admin: 04/21/17 17:36 Dose: Not Given Lidocaine (Lidoderm) 1 ea TOP DAILY [facility] Last Admin: 04/21/17 09:56 Dose: 1 ea Lisinopril (Zestril) 20 mg PO DAILY [facility] Last Admin: 04/21/17 10:09 Dose: 20 mg Magnesium Oxide (Mag-Ox) 400 mg PO BID [facility] Last Admin: 04/21/17 18:34 Dose: 400 mg Memantine (Namenda) 5 mg PO DAILY [facility] Last Admin: 04/21/17 10:50 Dose: 5 mg Mirtazapine (Remeron) 15 mg PO HS PRN PRN Reason: Insomnia Last Admin: 04/20/17 22:18 Dose: 15 mg Propranolol HCl (Inderal) 40 mg PO DAILY [facility] Last Admin: 04/21/17 10:04 Dose: 40 mg Quetiapine Fumarate (Seroquel) 12.5 mg PO HS [facility] PRN Reason: Protocol Thiamine HCl (Vitamin B1 Tab) 100 mg PO Q8H [facility] Last Admin: 04/21/17 11:51 Dose: 100 mg Vancomycin HCl (Vancocin 25 Mg/Ml (Oral Use)) 250 mg PO QID [facility] PRN Reason: Protocol Last Admin: 04/21/17 18:32 Dose: 250 mg - Labs Labs: 04/20/17 06:40 04/20/17 06:40 PT 11.4 Seconds (9.9-11.8) 04/18/17 07:33 INR 1.06 (0.93-1.08) 04/18/17 07:33 APTT 25.6 Seconds (23.7-30.8) 04/18/17 07:33 Attending/Attestation - Attestation I have personally seen and examined this patient.: Yes I have fully participated in the care of the patient.: Yes I have reviewed all pertinent clinical information, including history, physical exam and plan: Yes Notes (Text): This is an addendum to GI progress report dictated by Lissa Hearn APN.The patient was seen and examined earlier. Medical records, lab studies, imagings were reviewed. Last 24 hours events reviewed. Agreed with the above treatment plan as outlined in Lissa Hearn APN's notes the with the addition of the following More alert Still complains of loose bowel movements Abdomen soft no tenderness Patient has celiac disease and also C. difficile colitis Severe B12 deficiency Dementia Would need elective colonoscopy 04/21/17 20:58 <Lissa Hearn J - Last Filed: 04/24/17 11:59> Subjective - Date & Time of Evaluation Date of Evaluation: 10/13/17 Time of Evaluation: 10:15 - Subjective Subjective: Patient was seen and examined at the bedside earlier today, patient was reported to have hypoglycemia yesterday evening and was becoming forgetful/ confused. This morning patient is awake alert and oriented denies nausea, vomiting, or abdominal pain. Did report having a pasty stool 1 denies watery stools. No melena or bright red blood per rectum. Tolerated her gluten-free diet, 80% of her tray was eaten. She was seen by the dietitian on numerous occasions regarding gluten-free diet. No new complaints. Objective - Vital Signs/Intake and Output Vital Signs (last 24 hours): Temp Pulse Resp BP Pulse Ox 98.4 F 65 20 127/63 99 04/21/17 07:42 04/21/17 10:09 04/21/17 07:42 04/21/17 10:09 04/21/17 07:42 Intake and Output: 04/21/17 04/21/17 06:59 18:59 Intake Total 1020 260 Balance 1020 260 - Medications Medications: Current Medications Acetaminophen/Butalbital/Caffeine (Fioricet) 1 tab PO Q4H PRN PRN Reason: Headache Last Admin: 04/16/17 10:46 Dose: 1 tab Atorvastatin Calcium (Lipitor) 80 mg PO DAILY [facility] Last Admin: 04/21/17 10:05 Dose: 80 mg Clopidogrel Bisulfate (Plavix) 75 mg PO DAILY [facility] Last Admin: 04/21/17 09:56 Dose: 75 mg Digoxin (Lanoxin) 0.125 mg PO 1400 [facility] Last Admin: 04/20/17 13:51 Dose: 0.125 mg Duloxetine HCl (Cymbalta) 20 mg PO DAILY [facility] Last Admin: 04/21/17 10:04 Dose: 20 mg Furosemide (Lasix) 40 mg PO DAILY [facility] Last Admin: 04/14/17 09:47 Dose: 40 mg Hydrochlorothiazide (Hydrodiuril) 25 mg PO DAILY [facility] Last Admin: 04/21/17 10:04 Dose: 25 mg Potassium Chloride (Potassium Chloride 20 Meq/100 Ml) 20 meq in 100 mls @ 50 mls/hr IVPB Q12H [facility] Last Admin: 04/20/17 09:40 Dose: Not Given Sodium Chloride (Sodium Chloride 0.9%) 1,000 mls @ 100 mls/hr IV .Q10H [facility] Last Admin: 04/19/17 10:54 Dose: Not Given Insulin Human Regular (Humulin R Low) 0 units SC ACHS [facility] PRN Reason: Protocol Last Admin: 04/21/17 07:55 Dose: Not Given Lidocaine (Lidoderm) 1 ea TOP DAILY [facility] Last Admin: 04/21/17 09:56 Dose: 1 ea Lisinopril (Zestril) 20 mg PO DAILY [facility] Last Admin: 04/21/17 10:09 Dose: 20 mg Magnesium Oxide (Mag-Ox) 400 mg PO BID [facility] Last Admin: 04/21/17 09:56 Dose: 400 mg Memantine (Namenda) 5 mg PO DAILY [facility] Mirtazapine (Remeron) 15 mg PO HS PRN PRN Reason: Insomnia Last Admin: 04/20/17 22:18 Dose: 15 mg Propranolol HCl (Inderal) 40 mg PO DAILY [facility] Last Admin: 04/21/17 10:04 Dose: 40 mg Quetiapine Fumarate (Seroquel) 12.5 mg PO HS [facility] PRN Reason: Protocol Thiamine HCl (Vitamin B1 Tab) 100 mg PO Q8H [facility] Vancomycin HCl (Vancocin 25 Mg/Ml (Oral Use)) 250 mg PO QID [facility] PRN Reason: Protocol Last Admin: 04/21/17 10:08 Dose: 250 mg - Labs Labs: 04/20/17 06:40 04/20/17 06:40 PT 11.4 Seconds (9.9-11.8) 04/18/17 07:33 INR 1.06 (0.93-1.08) 04/18/17 07:33 APTT 25.6 Seconds (23.7-30.8) 04/18/17 07:33 - Constitutional Appears: No Acute Distress - Head Exam Head Exam: NORMOCEPHALIC - Eye Exam Eye Exam: Normal appearance. absent: Scleral icterus - ENT Exam ENT Exam: Mucous Membranes Moist - Neck Exam Neck Exam: Normal Inspection - Respiratory Exam Respiratory Exam: NORMAL BREATHING PATTERN. absent: Respiratory Distress - Cardiovascular Exam Cardiovascular Exam: +S1, +S2 - GI/Abdominal Exam GI & Abdominal Exam: Soft, Normal Bowel Sounds. absent: Guarding, Tenderness, Rebound - Neurological Exam Neurological Exam: Alert, Awake, Oriented x3 - Skin Skin Exam: Dry, Warm Assessment and Plan - Assessment and Plan (Free Text) Assessment: Assessment: Status post endoscopy, found gastritis Celiac disease serology suggestive of celiac disease Hypokalemia Cdiff colitis Dizziness B12 deficiency Weight loss Chronic diarrhea Renal Insuffiency History of gastric bypass Coronary artery disease status post cardiac catheterization, on Plavix. Hypertension Diabetes mellitus, had episodes of hypoglycemia, her diabetic medications have been rearranged as per medicine. Plan: continue gluten-free diet on Plavix continue Oral Vancomycin, recommended to complete a total 14 days Continue monitor electrolytes and replete potassium as necessary Continued GI and DVT prophylaxis Cardiology and neurology follow-up spoke to the patient's daughter yesterday regarding gluten-free diet for celiac disease, and regarding follow-up, see yesterday's dictation for details. Also reinforced to patient this morning regarding findings from celiac disease serology and importance of compliance with diet, spoke to nursing staff that may benefit if the daughter was also present with dietitian during review of diet, and regarding elective outpatient colonoscopy. Seen and discussed with Dr. Boyer
[2017-04-21] MEDS: Digoxin 125 mcg (0.125 mg) Tab PO SCH (13:55)
--- NOTE | 2017-04-21 14:54 | PN ---
DATE: FOLLOW UP NOTE SUBJECTIVE: The patient is a 66-year-old female, history of depression, multiple medical problems, one previous psychiatric admission in 02/2016. The patient was admitted to the medical floor for evaluation of loss of balance, psych consult was called initially for evaluation of medication. This telegraphic typewriter operator chief sign off. Medical team could reconsult the patient for confusion and being disorganized. This telegraphic typewriter operator chief seen and examined the patient. The patient presented to be sleepy, easily arousable. The patient presented to be mildly confused, has obviously difficulty to concentrate and the patient disoriented in time, but not in place. The patient was making statements which are confabulating and does not make sense. The patient denied being depression, denied thoughts of harming herself or others. Denied seeing things, denied hearing things. Collaterals from the nursing staff, the patient has deficiency in short term memory, at times confused, was not able to find her staff and when the patient is reoriented, the patient becomes defensive and irritable. PHYSICAL EXAMINATION: VITAL SIGNS: Temperature 98.4, pulse of 76, blood pressure 116/59, respirations 20, oxygen saturation is 99. MENTAL STATUS EXAMINATION: Mini mental was done by medical students and the patient scored 20/30. The patient has difficulties with the time. The patient thinks that now is summer. The patient is oriented . The patient was not able to memorize things and this is the majority area of the deficits. MENTAL STATUS EXAMINATION: The patient presented to be sleepy, easily arousable. Acceptable personal hygiene. Fair eye contact. Mood described not depressed and not anxious. Affect was reactive. Mood congruent. Thought process confabulation. Thought content; the patient denied visual, auditory, or tactile hallucinations. Denied paranoid ideation. The patient denied thoughts of harming himself or others. Denied intent or plan. Insight and judgment are limited. Impulses are well controlled. MEDICATIONS: Reviewed Lasix, hydrochlorothiazide, Humulin, lidocaine, Zestril, magnesium oxide, Remeron 15 mg as needed for insomnia, potassium chloride. The patient is on propranolol, sodium chloride, and vancomycin. LABORATORY DATA: Reviewed. The patient was seen by GI team newly diagnosis with celiac disease, leukopenia, hypokalemia which resolved. Clostridium difficile colitis. IMPRESSION: Most likely, the patient has delirium due to general medical condition. The patient is on contact precautions because Clostridium difficile colitis. The patient newly diagnosed with celiac disease. The patient had electrolytes imbalance which is improved and all of these problems could contribute to the patient's confusion. On top of that the patient has deficit of vitamin B also it could give confusion and delirium state. PLAN: Continue current management. This telegraphic typewriter operator chief will hold Wellbutrin because it could give psychotic symptoms. The patient is on Cymbalta. If we need, we can increase the dose of Cymbalta further, right now it is 20 mg. The patient is on Remeron 60 mg as needed for insomnia. This telegraphic typewriter operator chief will start small dose of Seroquel 12.5 mg at the night time to clear sensorium. Meanwhile, the patient is not in acute distress, not agitated, at times confused. Over the weekend, Dr. Siu, will followup on this patient. Should you have any questions, give me a call back. Thank you very much for letting me participate in care of your patient. Carla Wilkinson MD
[2017-04-21] MEDS: Apap-Butalbital-Caffeine 325-50-40mg Tab PO PRN (22:22)
[2017-04-21] MEDS ORDERED: Sodium Chloride 0.9% 1,000 ML IV SCH (23:37)
--- NOTE | 2017-04-22 02:02 | PN ---
DATE: SUBJECTIVE: The patient is a 66-year-old female. The patient is seen and examined on the bedside. Looking comfortable. She has regular bowel movement. Tolerating gluten-free diet very well, but having episode of confusion, forgetfulness, seen by the Psychiatrist and Neurologist. Otherwise, the patient is awake and alert. No vomiting. No abdominal pain. No rectal bleeding. The patient finished 80% of her tray of gluten-free diet. PHYSICAL EXAMINATION: VITAL SIGNS: Temperature is 98.4, pulse 65, respiratory rate is 20, blood pressure is 127/53, and pulse oximetry is 99%. HEENT: Head is normocephalic and atraumatic. Eyes: PERRLA. Extraocular muscles are intact. Conjunctivae are clear. Nose is patent. Mucous membranes are moist. NECK: Supple. No carotid bruits. No JVD or thyromegaly. CHEST: Bilaterally symmetrical. HEART: S1 and S2 positive. LUNGS: Clear to auscultation. ABDOMEN: Soft. Bowel sounds present. No organomegaly. EXTREMITIES: No edema and no cyanosis. NEUROLOGIC: The patient is awake and alert. Moving all 4 extremities. No focal deficit. MEDICATIONS: Fioricet, Lipitor, Plavix, Cymbalta, NS, insulin, Lidoderm, Remeron, and Inderal. LABORATORY DATA: White blood cells 4.1, hemoglobin 12.1, hematocrit is 35.0, and platelets are 143. Sodium is 141, potassium 4.2, BUN 12, creatinine is 1.3, and glucose 85. ASSESSMENT AND PLAN: Ms. Willow Cast is a 66-year-old female with leukopenia, anemia, status post endoscopy, has gastritis; celiac disease, serology positive for celiac disease, now getting gluten-free diet, had a couple of meetings with the dietitian and today she ate 80% of her tray; hypokalemia improved; Clostridium difficile toxin colitis, getting vancomycin; B12 deficiency, getting injections of B12; history of weight loss, may be due to diarrhea and may be due to celiac disease; renal insufficiency, may be prerenal; history of gastric bypass in remote past; coronary artery disease, status post cardiac catheterization, on Plavix; history of hypertension; history of diabetes mellitus, was on oral hypoglycemic medications; had episodes of hypoglycemia, so we stopped the hypoglycemic medications, is just on a sliding scale. We will continue gluten-free diet, Plavix, oral vancomycin for 40 days. Continue electrolyte monitoring. Gastrointestinal and deep venous thrombosis prophylaxis. Gastroenterology is talking to the patient's daughter. Even I called her today to discuss mother condition, waiting for her call back. Seen by Dr. Card, Neurologist for reevaluation because of periods of forgetfulness. History of asthma, transient ischemic attack. MRI of the brain showed marked volume loss and mild white matter changes, which is nonspecific for chronic microvascular ischemia. As per the patient, she has family history of dementia, her mother, aunt, and uncles has dementia. There is no acute pathology. Confusion can be started into underlying dementia as per neurology, but the vitamin B12 deficiency versus delirium as per Neurology. Neurology started on Namenda 5 mg, 100 mg thiamine and suggested coenzyme Q10 as an outpatient. Seen and evaluated by Dr. Carla Wilkinson. According to her, the patient has a history of psychiatric problem, had one admission on 02/27/2016. Psychiatrist is on the case. Maybe has adjustment disorder, problem is patient is living alone. I am not comfortable discharging home with altered mental status. We will decide planning with the daughter and according to psych, maybe delirium due to general medical condition. The patient is on contact precautions for Clostridium difficile toxin colitis. Maybe medical problems contribute to the patient's confusion. On the top of that, the patient has vitamin D deficiency, but getting the B12 injections. We will continue present treatment and the Psychiatrist do some changes in the medication and we will follow up. Fariha Olvera MD MTDHaris
[2017-04-22 07:46] LABS: MEAN CELL VOLUME 98.9 fl (80.0-105.0); MEAN CORPUSCULAR HEMOGLOBIN 33.2 pg (25.0-35.0); MEAN CORPUSCULAR HGB CONC 33.5 g/dl (31.0-37.0); MEAN PLATELET VOLUME 9.8 fl (7.0-11.0); RED CELL DISTRIBUTION WIDTH 14.1 % (11.5-14.5); WHITE BLOOD COUNT 4.2 10^3/ul (4.5-11.0)
[2017-04-22 08:02] LABS: CALCIUM 9.8 mg/dL (8.4-10.5); POTASSIUM 4.4 mmol/L (3.6-5.0)
[2017-04-22] MEDS: Insulin Reg-LOW-Coverage SC SCH ×2 (08:31→22:24)
--- NOTE | 2017-04-22 10:21 | CON ---
HISTORY OF PRESENT ILLNESS: The patient is a 66-year-old -[place] female with a history of depression and prior psychiatric admission in 02/2016, who is being seen by psychiatry due to confusion and disorganization, very much likely to delirium. I reviewed Dr. Wilkinson's notes and I met with the patient at bedside and the patient does appear to be improved in comparison to prior notes; specifically, she is well oriented to the fact that she is at [facility], it is 04/2017. She understands that she has presented confused. Her focus is good, her eye contact is good and her responses are relevant and consistent. She denies having any hallucinations; although she does report a history of depression, she feels "okay" at this time and she reports hopefulness about the future. She is tolerating her current psychiatric medications and denies any side effects, reports that she has felt fairly well. Delusions were not elicited. Insight and judgement appear to be improving. Regarding her current comfort level, she said that she is pain, she has been all the time in her lower extremities. Vital signs and labs were reviewed by this rewriter. Psychiatric medications include Cymbalta 20 mg daily, Remeron 15 mg at bedtime and Seroquel 12.5 mg at bedtime. IMPRESSION: Improving delirium, history. Of note, the patient is on contact precautions because of Clostridium difficile colitis. History of depression. RECOMMENDATIONS: Continue current management. I really on holding Wellbutrin as just they cause symptoms in some patients. The patient is improving on current psychiatric medications; there is no acute indication for changes at this time. The patient's delirium is improving and she might be impaired of lucidity and I cannot rule out that that she will be confused later on today, but as it is based on her presentation; during my interview this morning, there was no psychiatric indication for transfer to the psychiatric unit and she defers on this transfer at this time. Psychiatry will continue to follow up with the patient; today, please request early consultation if there are any acute changes in her mental status. Woody Siu MD
[2017-04-22] MEDS: Magnesium Oxide 400 mg Tab UD PO SCH ×2 (10:50→17:31)
[2017-04-22] MEDS: Lidocaine 5% Patch TOP SCH (10:51)
[2017-04-22] MEDS: Vancomycin 25 MG/ML PO SCH ×4 (11:06→22:20)
[2017-04-22 12:51] LABS: FOLATE 6.9 ng/mL
[2017-04-22] MEDS: Digoxin 125 mcg (0.125 mg) Tab PO SCH (14:33)
--- NOTE | 2017-04-22 22:27 | PN ---
DATE: 04/22/2017 SUBJECTIVE: This patient was seen and evaluated earlier today. The patient feels much better. Diarrhea has improved. PHYSICAL EXAMINATION VITAL SIGNS: Temperature is 98.3, pulse is 54, blood pressure 152/60. HEENT: Atraumatic. Anicteric. NECK: Supple. HEART: S1 and S2 heard. LUNGS: Bilateral air entry present. ABDOMEN: Soft. There is no tenderness. EXTREMITIES: No edema. No cyanosis, no clubbing. LABORATORY DATA: Review of the labs showed hemoglobin is 12.4, hematocrit is 37, WBC 4.2, platelets 146. The patient's creatinine went up to 2.4. IMPRESSION: This 66-year-old patient admitted with diarrhea, weight loss. The patient was found to have celiac disease and also B12 deficiency. 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 RECOMMENDATIONS: The patient has acute kidney injury now with a creatinine of 2.4, but the patient is saying now the diarrhea is better. The original plan is to consider the colonoscopy as an outpatient in view of this C. difficile colitis. Presently, the patient is also in acute kidney injury; once it is improved, then probably we will consider based on the clinical course colonoscopic evaluation if needed as an inpatient. We will discuss with the Renal and also with the primary physician regarding this. Gee Boyer MD
[2017-04-23] MEDS: Lidocaine 5% Patch TOP SCH (10:39)
[2017-04-23] MEDS: Magnesium Oxide 400 mg Tab UD PO SCH ×2 (10:39→17:41)
[2017-04-23] MEDS: Vancomycin 25 MG/ML PO SCH ×4 (10:39→22:12)
[2017-04-23] MEDS: Digoxin 125 mcg (0.125 mg) Tab PO SCH (14:14)
[2017-04-23 14:18] VITALS: PULSE 64
[2017-04-23] MEDS: Insulin Reg-LOW-Coverage SC SCH ×5 (14:34→22:23)
[2017-04-23 18:26] LABS: ALB/GLOB RATIO 1.3 (1.1-1.8); BILIRUBIN,TOTAL 0.4 mg/dL (0.2-1.3); CALCIUM 9.4 mg/dL (8.4-10.5); POTASSIUM 5.3 mmol/L (3.6-5.0); TOTAL PROTEIN 7.1 g/dL (5.8-8.3)
--- NOTE | 2017-04-23 19:19 | PN ---
DATE: SUBJECTIVE: The patient was seen and examined on the bedside. Looking comfortable. She is awake and alert, but totally confused. No more diarrhea. No nausea or vomiting. No hematuria or hematochezia. No swelling of the legs. No chest pain. No palpitation. PHYSICAL EXAMINATION: VITAL SIGNS: Temperature 98.3, pulse 67, blood pressure 98/53, respiratory rate 18, pulse oximetry 88. HEENT: Head, normocephalic and atraumatic. Eyes, PERRLA. Extraocular muscles intact. Conjunctivae clear. Nose patent. NECK: Supple. No carotid bruits. No JVD or thyromegaly. CHEST: Bilaterally symmetrical. HEART: S1, S2 positive. LUNGS: Clear to auscultation. ABDOMEN: Soft. Bowel sounds present. No organomegaly. EXTREMITIES: No edema. No cyanosis. NEUROLOGIC: The patient is awake and alert. Follows simple commands. MEDICATIONS: Cymbalta, insulin, propranolol, digoxin, lidocaine, Lipitor, magnesium oxide, Namenda, Plavix, Remeron, Zestril, thiamine, vancomycin, Seroquel. LABORATORY DATA: White blood cells 4.2, hemoglobin 12.4, hematocrit 37, and platelets are 146. Glucose 106, 100, 133, 113. ASSESSMENT AND PLAN: Ms. Willow Cast is a 66-year-old lady with history of dementia, delirium. Delusions are getting worsened. Psych is on the case. Has C difficile toxin colitis, is still on contact precautions. Neurologist and psychiatrist, both are on the case. History of diarrhea, weight loss. The patient had celiac disease and was with B12 deficiency. B12 is replaced. Upper gastrointestinal endoscopy revealed gastric bypass surgery and according to Dr. Boyer, it looks like gastro-gastric conduit, rather than usual type. Seen by Dr. Card. History of diabetes mellitus, but we will hold all oral hypoglycemics because of the incident of hypoglycemia. Now, she is on sliding scale, history of hypertension, congestive heart failure, asthma, coronary artery disease, status post cardiac stent, possible transient ischemic attack, gastroesophageal reflux disease, dyspepsia. Neurology started Namenda 5 mg and thiamine. I recommended coenzyme Q10. Continue gastrointestinal and deep venous thrombosis prophylaxis but we will transfer the patient to the psych unit because of her depressive altered mental status. We will follow up. Fariha Olvera MD [facility] # [id number]
[2017-04-23] MEDS: Sodium Chloride 0.9% 1,000 ML IV SCH (22:35)
--- NOTE | 2017-04-24 00:26 | CP.PCM.PN ---
Subjective - Date & Time of Evaluation Date of Evaluation: 04/24/17 Time of Evaluation: 00:08 - Subjective Subjective: S:It was requested to insert a heplock. Patient has no acute symptoms now. Medical record was reviewed. O: Last Vital Signs 3 Temp 98.5 F 04/23/17 16:00 Pulse 63 04/23/17 16:00 Resp 18 04/23/17 16:00 BP 120/77 04/23/17 16:00 Pulse Ox 92 L 04/23/17 16:00 Awake, alert, not in distress. LUNGS:Normal breathing pattern. A:Poor venous access. Encounter for Intravenous line placement. P: # 24 angiocath was inserted. Objective - Vital Signs/Intake and Output Vital Signs (last 24 hours): Temp Pulse Resp BP Pulse Ox 98.5 F 63 18 120/77 92 L 04/23/17 16:00 04/23/17 16:00 04/23/17 16:00 04/23/17 16:00 04/23/17 16:00 Intake and Output: 04/23/17 04/24/17 18:59 06:59 Intake Total 360 Balance 360 - Medications Medications: Current Medications Atorvastatin Calcium (Lipitor) 80 mg PO DAILY [facility] Last Admin: 04/23/17 10:38 Dose: 80 mg Clopidogrel Bisulfate (Plavix) 75 mg PO DAILY [facility] Last Admin: 04/23/17 10:38 Dose: 75 mg Digoxin (Lanoxin) 0.125 mg PO 1400 [facility] Last Admin: 04/23/17 14:14 Dose: 0.125 mg Duloxetine HCl (Cymbalta) 20 mg PO DAILY [facility] Last Admin: 04/23/17 10:38 Dose: 20 mg Hydrochlorothiazide (Hydrodiuril) 25 mg PO DAILY [facility] Last Admin: 04/23/17 10:38 Dose: 25 mg Potassium Chloride (Potassium Chloride 20 Meq/100 Ml) 20 meq in 100 mls @ 50 mls/hr IVPB Q12H [facility] Last Admin: 04/20/17 09:40 Dose: Not Given Sodium Chloride (Sodium Chloride 0.9%) 1,000 mls @ 75 mls/hr IV .[id number] [facility] Last Admin: 04/23/17 22:35 Dose: 75 mls/hr Insulin Human Regular (Humulin R Low) 0 units SC ACHS [facility] PRN Reason: Protocol Last Admin: 04/23/17 16:33 Dose: Not Given Lidocaine (Lidoderm) 1 ea TOP DAILY [facility] Last Admin: 04/23/17 10:39 Dose: 1 ea Lisinopril (Zestril) 20 mg PO DAILY [facility] Last Admin: 04/23/17 10:39 Dose: 20 mg Magnesium Oxide (Mag-Ox) 400 mg PO BID [facility] Last Admin: 04/23/17 17:41 Dose: 400 mg Memantine (Namenda) 5 mg PO DAILY [facility] Last Admin: 04/23/17 10:39 Dose: 5 mg Mirtazapine (Remeron) 15 mg PO HS PRN PRN Reason: Insomnia Last Admin: 04/23/17 22:11 Dose: 15 mg Propranolol HCl (Inderal) 40 mg PO DAILY [facility] Last Admin: 04/23/17 10:38 Dose: 40 mg Quetiapine Fumarate (Seroquel) 12.5 mg PO HS [facility] PRN Reason: Protocol Last Admin: 04/23/17 21:34 Dose: 12.5 mg Thiamine HCl (Vitamin B1 Tab) 100 mg PO Q8H [facility] Last Admin: 04/23/17 20:53 Dose: 100 mg Vancomycin HCl (Vancocin 25 Mg/Ml (Oral Use)) 250 mg PO QID [facility] PRN Reason: Protocol Last Admin: 04/23/17 22:12 Dose: 250 mg - Labs Labs: 04/22/17 07:30 04/23/17 18:05 PT 11.4 Seconds (9.9-11.8) 04/18/17 07:33 INR 1.06 (0.93-1.08) 04/18/17 07:33 APTT 25.6 Seconds (23.7-30.8) 04/18/17 07:33
--- NOTE | 2017-04-24 04:12 | PN ---
SUBJECTIVE: This patient was seen and evaluated earlier. The patient denies any diarrhea now. PHYSICAL EXAMINATION: VITAL SIGNS: Temperature is 98, blood pressure 120/77, respirations 18 and O2 saturation is 92%. HEENT: Atraumatic. Anicteric. NECK: Supple. HEART: S1 and S2 heard. LUNGS: Bilateral air entry present. ABDOMEN: Soft. There is no tenderness. EXTREMITIES: No edema, no cyanosis. LABORATORY DATA: Hemoglobin 12. There is chemistry done yesterday showed a BUN is 17 and creatinine is 2.4. IMPRESSION: This 66-year-old patient has admitted with diarrhea, weight loss, found to have celiac disease and also B12 deficiency. Upper GI endoscopy revealed gastric bypass, but it is mainly a gastric conduit rather than usual type. The patient has now improvement of the diarrhea with the patient on p.o. vancomycin for Clostridium difficile colitis. However, the patient did develop an acute kidney injury with creatinine has gone up to 2.2. It was 2.4 yesterday. We would request renal followup. We will repeat the stool for Clostridium difficile. If it is negative, we will discontinue this. Since diarrhea has improved, we will consider discontinuing the p.o. vancomycin. We will continue the renal followup. Thank you very much for allowing us to participate in the care of the patient. Gee Boyer MD
[2017-04-24 08:17] VITALS: RESP 20
[2017-04-24] MEDS: Insulin Reg-LOW-Coverage SC SCH ×3 (08:35→17:22)
--- NOTE | 2017-04-24 10:09 | PN ---
DATE: 04/22/2017 SUBJECTIVE: The patient is a 66-year-old female. The patient is seen and examined on the bedside. Looking comfortable. No nausea, vomiting or diarrhea. No hematuria, no hematochezia. Her bowel movement is regular. No abdominal pain. No coughing. No shortness of breath. Still having episodes of altered mental status. PHYSICAL EXAMINATION: VITAL SIGNS: Temperature 97.6, pulse 74, blood pressure 140/83, respiratory rate 20. HEENT: Head is normocephalic and atraumatic. Eyes: PERRLA. Extraocular muscles intact. Conjunctivae clear. Nose patent. Mucous membranes moist. NECK: Supple. No carotid bruits. No JVD or thyromegaly. CHEST: Bilaterally symmetrical. HEART: S1 and S2 positive. LUNGS: Clear to auscultation. ABDOMEN: Soft. Bowel sounds present. No organomegaly. EXTREMITIES: No edema. No cyanosis. NEUROLOGIC: The patient is awake and alert. Moving all four extremities. No focal deficits. MEDICATIONS: Cymbalta, insulin, hydrochlorothiazide, Inderal, Lanoxin, Lidoderm, Lipitor, magnesium oxide, Namenda, Plavix, Remeron, B12, Zestril, B1, vancomycin, and NS. LABORATORY DATA: White blood cell is 4.2, hemoglobin 12.4, hematocrit 37.0, platelets 146. Sodium 141, potassium 4.4, BUN 17, creatinine 2.4, glucose 94, iron 45, B12 is 870. ASSESSMENT AND PLAN: Ms. Willow Cast is a 66-year-old lady with proteinuria, glucosuria, hematuria, large leukocytes, rule out urinary tract infection, seen by the Psychiatrist due to depression and changing of mental status. According to Psychiatrist, is improving delirium. The patient has C difficile toxin colitis, on contact isolation and getting vancomycin, history of depression, seen by the Psychiatrist and Neurologist. Gastroenterology is also on the case and Head Chopper is on the case. History of upper endoscopy, has gastritis. Celiac disease serology was positive for celiac disease, now getting gluten-free diet, tolerating it very well. History of electrolyte imbalance, now is fixed. History of B12 deficiency, but now B12 is within normal range. History of hypertension, continue current treatment. Gastrointestinal and deep venous thrombosis prophylaxis. Repeat labs. Physical therapy. We will follow up. Fariha Olvera MD
--- NOTE | 2017-04-24 10:41 | PN ---
DATE: SUBJECTIVE: Shortly, the patient is 66-year-old female with history of hypertension, CHF, asthma, coronary artery disease, possible TIA's. The patient was admitted on the medical side for evaluation of dizziness and headache. Psych consult was called for evaluation of confusion and change in mental status. Head CT scan was done, noted to be negative for any acute pathology. MRI was done and showed mild volume loss and mild white matter changes. There is no acute pathology. The patient was seen by medical team as well as Neurology team. Psych consult was following the patient for evaluation of confusion as well as forgetfulness as well as the patient has history of depression and anxiety. This mortgage or loan underwriter followed up patient today at the morning time. The patient presented well, in good spirits, was smiling back to this mortgage or loan underwriter. The patient knows that now it is April and we are in the middle of the month as well as the patient is aware of the year as well as place. The patient knows that she is in [facility]. The patient denied being depressed. The patient denied thoughts of killing herself or others, denied hearing voices, denied seeing things and collateral information were obtained from the nursing staff. The patient is at times forgetful but there is no agitation, no aggression. This mortgage or loan underwriter reviewed notes from the Neurology team and impression was underlying dementia versus vitamin B12 deficiency versus delirium. The patient also was diagnosed with C. diff and the patient is on contact isolation because of that. Mental status examination was done by medical student and the patient scored 20 out of 30. The main area of deficit was the patient was confused within couple of minutes after the patient talked to this mortgage or loan underwriter and this is related most likely to delirium stage. Within couple of minutes, the patient stated that right now it is September and it is spring. The patient was not aware of what is the name of the hospital. The patient said that this is [facility]. This description is delirium, which is related either to vitamin B12 deficiency or other underlying medical issues. This mortgage or loan underwriter reviewed vital signs. Vital signs seems to be stable. Temperature 98, blood pressure 158/80, respiration 26 and saturation is 100. Medications reviewed. The patient is on Lipitor, Plavix, Digoxin, Cymbalta 20 mg daily, hydrochlorothiazide, insulin, Lidoderm magnesium oxide. Namenda was started by medical team. Remeron 15 mg at the nighttime, Seroquel 12.5 mg at the nighttime for delirium and vancomycin. LABORATORY DATA: reviewed. WBC cells of 4.2, hemoglobin 12.4, hematocrit 37.0. Coagulation reviewed. Chemistry reviewed. Vitamin B12 was 190 and on 04/12/2017, went up to 817. Urinalysis: Leukocyte esterase was large on 04/12/2017. This mortgage or loan underwriter suggested to repeat urinalysis. MENTAL STATUS EXAMINATION: As this mortgage or loan underwriter described above. The patient has episodes of confusion. The patient was alert and oriented during this mortgage or loan underwriter's evaluation, but when the patient was interviewed by medical student and mental status examination was done, the patient scored only 20 out of 30 and main area of deficit was orientation and sustained attention. The patient had fair eye contact. Speech was normal rate, tone, quality and quantity. Mood described as "I'm in good spirit today." Affect was reactive, mood congruent. Thought process seems to be coherent and goal directed. Thought content, the patient denied visual or tactile hallucination. Denied paranoid ideation. The patient does not present to be psychotic. Insight and judgment are improving. Impulses are well controlled. IMPRESSION: This mortgage or loan underwriter agrees with the assessment of the Neurology team. Most likely, the patient is in delirium stage which is related to vitamin B12 deficiency versus delirium due to general medical condition as well as, as per family, the patient has history of dementia. The patient has multiple medical issues which could contribute to patient's condition. PLAN: Continue current management. Continue current medications. At present moment, the patient does not meet the criteria for psych admission. The patient is in good spirits. Denied being depressed. Denied any psychotic symptoms. Denied thoughts of harming herself or others. Denied intent or plan. The patient has good appetite and sleep. Meanwhile, continue current management. This mortgage or loan underwriter will follow up on this patient every other day. Follow up with Neurology recommended. Family involvement. Should you have any questions, give me a call back. Thank you very much for letting me participate in the care of your patient. Carla Wilkinson MD
[2017-04-24 10:43] LABS: BASO # 0.02 K/mm3 (0.0-2.0); BASO % 0.4 % (0.0-3.0); EOS % 0.4 % (1.5-5.0); GRAN # 2.93 (1.4-6.5); HEMATOCRIT 39.7 % (36.0-48.0); LYMPH # 1.6 (1.2-3.4); LYMPH % 33.1 % (22.0-35.0); MEAN CELL VOLUME 99.3 fl (80.0-105.0); MEAN CORPUSCULAR HEMOGLOBIN 33.5 pg (25.0-35.0); MEAN CORPUSCULAR HGB CONC 33.8 g/dl (31.0-37.0); MEAN PLATELET VOLUME 9.8 fl (7.0-11.0); MONO # 0.3 (0.1-0.6); MONO % 6.1 % (1.0-6.0); RED CELL DISTRIBUTION WIDTH 13.8 % (11.5-14.5); WHITE BLOOD COUNT 4.9 10^3/ul (4.5-11.0)
[2017-04-24 10:55] LABS: ALB/GLOB RATIO 1.3 (1.1-1.8); BILIRUBIN,TOTAL 0.5 mg/dL (0.2-1.3); CALCIUM 9.6 mg/dL (8.4-10.5); MAGNESIUM 2.3 mg/dL (1.7-2.2); PHOSPHOROUS 4.6 mg/dL (2.5-4.5); POTASSIUM 4.5 mmol/L (3.6-5.0); TOTAL PROTEIN 7.7 g/dL (5.8-8.3)
[2017-04-24] MEDS: Lidocaine 5% Patch TOP SCH (11:05)
[2017-04-24] MEDS: Magnesium Oxide 400 mg Tab UD PO SCH (11:06)
[2017-04-24] MEDS: Vancomycin 25 MG/ML PO SCH ×3 (11:07→17:23)
[2017-04-24] MEDS: Sodium Chloride 0.9% 1,000 ML IV SCH (11:07)
[2017-04-24] MEDS: Digoxin 125 mcg (0.125 mg) Tab PO SCH (14:19)
[2017-04-24 17:02] VITALS: BP 138/78; PULSE 72; TEMP 98.4; O2SAT 98
--- NOTE | 2017-04-24 19:07 | CP.PCM.PN ---
Subjective - Date & Time of Evaluation Date of Evaluation: 04/24/17 Time of Evaluation: 17:00 - Subjective Subjective: denies any diarrhea Objective - Vital Signs/Intake and Output Vital Signs (last 24 hours): Temp Pulse Resp BP Pulse Ox 98.4 F 72 20 138/78 98 04/24/17 16:01 04/24/17 16:01 04/24/17 16:01 04/24/17 16:01 04/24/17 16:01 Intake and Output: 04/24/17 04/25/17 18:59 06:59 Intake Total 580 Balance 580 - Medications Medications: Current Medications Atorvastatin Calcium (Lipitor) 80 mg PO DAILY [facility] Last Admin: 04/24/17 11:06 Dose: 80 mg Clopidogrel Bisulfate (Plavix) 75 mg PO DAILY [facility] Last Admin: 04/24/17 11:08 Dose: 75 mg Digoxin (Lanoxin) 0.125 mg PO 1400 [facility] Last Admin: 04/24/17 14:19 Dose: 0.125 mg Duloxetine HCl (Cymbalta) 20 mg PO DAILY [facility] Last Admin: 04/24/17 10:57 Dose: 20 mg Potassium Chloride (Potassium Chloride 20 Meq/100 Ml) 20 meq in 100 mls @ 50 mls/hr IVPB Q12H [facility] Last Admin: 04/20/17 09:40 Dose: Not Given Sodium Chloride (Sodium Chloride 0.9%) 1,000 mls @ 75 mls/hr IV .[id number] [facility] Last Admin: 04/24/17 11:07 Dose: 75 mls/hr Insulin Human Regular (Humulin R Low) 0 units SC ACHS [facility] PRN Reason: Protocol Last Admin: 04/24/17 17:22 Dose: Not Given Lidocaine (Lidoderm) 1 ea TOP DAILY [facility] Last Admin: 04/24/17 11:05 Dose: 1 ea Memantine (Namenda) 5 mg PO DAILY [facility] Last Admin: 04/24/17 11:06 Dose: 5 mg Mirtazapine (Remeron) 15 mg PO HS PRN PRN Reason: Insomnia Last Admin: 04/23/17 22:11 Dose: 15 mg Propranolol HCl (Inderal) 40 mg PO DAILY [facility] Last Admin: 04/24/17 11:04 Dose: 40 mg Quetiapine Fumarate (Seroquel) 12.5 mg PO HS [facility] PRN Reason: Protocol Last Admin: 04/23/17 21:34 Dose: 12.5 mg Thiamine HCl (Vitamin B1 Tab) 100 mg PO Q8H [facility] Last Admin: 04/24/17 11:07 Dose: 100 mg Vancomycin HCl (Vancocin 25 Mg/Ml (Oral Use)) 250 mg PO QID [facility] PRN Reason: Protocol Last Admin: 04/24/17 17:23 Dose: 250 mg - Labs Labs: 04/24/17 10:15 04/24/17 10:15 PT 11.4 Seconds (9.9-11.8) 04/18/17 07:33 INR 1.06 (0.93-1.08) 04/18/17 07:33 APTT 25.6 Seconds (23.7-30.8) 04/18/17 07:33 - Head Exam Head Exam: ATRAUMATIC, NORMOCEPHALIC - Eye Exam Eye Exam: EOMI, PERRL - ENT Exam ENT Exam: Mucous Membranes Moist - Neck Exam Neck Exam: Full ROM, Normal Inspection. absent: Lymphadenopathy - Respiratory Exam Respiratory Exam: NORMAL BREATHING PATTERN. absent: Rales, Rhonchi - Cardiovascular Exam Cardiovascular Exam: REGULAR RHYTHM, +S1, +S2. absent: JVD - GI/Abdominal Exam GI & Abdominal Exam: Soft, Normal Bowel Sounds. absent: Tenderness, Mass - Extremities Exam Extremities Exam: Full ROM, Normal Inspection. absent: Calf Tenderness Assessment and Plan - Assessment and Plan (Free Text) Assessment: this 66-year-old patient admitted to the weight loss and anemia. Found to have celiac disease, C. difficile colitis. Patient is due to have colonoscopy as an outpatient in view of this recent C. difficile. History of acute kidney injury being followed by the renal. Recommend elective colonoscopy
--- NOTE | 2017-04-24 21:10 | CP.PCM.PN ---
Subjective - Date & Time of Evaluation Date of Evaluation: 04/24/17 Time of Evaluation: 10:30 - Subjective Subjective: Seen and examined at the bedside earlier this morning, the chart was reviewed. Patient denies nausea, vomiting, or abdominal pain. Last bowel movement was soft formed stool on Monday, denies any further episodes of diarrhea. No reports of any bleeding per rectum. Objective - Vital Signs/Intake and Output Vital Signs (last 24 hours): Temp Pulse Resp BP Pulse Ox 98 F 71 20 119/76 100 04/24/17 08:16 04/24/17 11:04 04/24/17 08:16 04/24/17 11:04 04/24/17 08:16 Intake and Output: 04/24/17 04/24/17 06:59 18:59 Intake Total 520 320 Balance 520 320 - Medications Medications: Current Medications Atorvastatin Calcium (Lipitor) 80 mg PO DAILY [facility] Last Admin: 04/24/17 11:06 Dose: 80 mg Clopidogrel Bisulfate (Plavix) 75 mg PO DAILY [facility] Last Admin: 04/24/17 11:08 Dose: 75 mg Digoxin (Lanoxin) 0.125 mg PO 1400 [facility] Last Admin: 04/23/17 14:14 Dose: 0.125 mg Duloxetine HCl (Cymbalta) 20 mg PO DAILY [facility] Last Admin: 04/24/17 10:57 Dose: 20 mg Hydrochlorothiazide (Hydrodiuril) 25 mg PO DAILY [facility] Last Admin: 04/23/17 10:38 Dose: 25 mg Potassium Chloride (Potassium Chloride 20 Meq/100 Ml) 20 meq in 100 mls @ 50 mls/hr IVPB Q12H [facility] Last Admin: 04/20/17 09:40 Dose: Not Given Sodium Chloride (Sodium Chloride 0.9%) 1,000 mls @ 75 mls/hr IV .[id number] [facility] Last Admin: 04/24/17 11:07 Dose: 75 mls/hr Insulin Human Regular (Humulin R Low) 0 units SC ACHS [facility] PRN Reason: Protocol Last Admin: 04/24/17 08:35 Dose: Not Given Lidocaine (Lidoderm) 1 ea TOP DAILY [facility] Last Admin: 04/24/17 11:05 Dose: 1 ea Lisinopril (Zestril) 20 mg PO DAILY [facility] Last Admin: 04/23/17 10:39 Dose: 20 mg Magnesium Oxide (Mag-Ox) 400 mg PO BID [facility] Last Admin: 04/24/17 11:06 Dose: 400 mg Memantine (Namenda) 5 mg PO DAILY [facility] Last Admin: 04/24/17 11:06 Dose: 5 mg Mirtazapine (Remeron) 15 mg PO HS PRN PRN Reason: Insomnia Last Admin: 04/23/17 22:11 Dose: 15 mg Propranolol HCl (Inderal) 40 mg PO DAILY [facility] Last Admin: 04/24/17 11:04 Dose: 40 mg Quetiapine Fumarate (Seroquel) 12.5 mg PO HS [facility] PRN Reason: Protocol Last Admin: 04/23/17 21:34 Dose: 12.5 mg Thiamine HCl (Vitamin B1 Tab) 100 mg PO Q8H [facility] Last Admin: 04/24/17 11:07 Dose: 100 mg Vancomycin HCl (Vancocin 25 Mg/Ml (Oral Use)) 250 mg PO QID [facility] PRN Reason: Protocol Last Admin: 04/24/17 11:07 Dose: 250 mg - Labs Labs: 04/24/17 10:15 04/24/17 10:15 PT 11.4 Seconds (9.9-11.8) 04/18/17 07:33 INR 1.06 (0.93-1.08) 04/18/17 07:33 APTT 25.6 Seconds (23.7-30.8) 04/18/17 07:33 - Constitutional Appears: No Acute Distress - Head Exam Head Exam: NORMOCEPHALIC - Eye Exam Eye Exam: Normal appearance. absent: Scleral icterus Pupil Exam: NORMAL ACCOMODATION - ENT Exam ENT Exam: Mucous Membranes Moist - Neck Exam Neck Exam: Normal Inspection - Respiratory Exam Respiratory Exam: NORMAL BREATHING PATTERN. absent: Respiratory Distress - Cardiovascular Exam Cardiovascular Exam: +S1, +S2 - GI/Abdominal Exam GI & Abdominal Exam: Soft, Normal Bowel Sounds. absent: Guarding, Tenderness, Rebound - Extremities Exam Extremities Exam: absent: Calf Tenderness, Pedal Edema - Neurological Exam Neurological Exam: Alert, Awake, Oriented x3 - Skin Skin Exam: Dry, Warm Assessment and Plan - Assessment and Plan (Free Text) Assessment: Assessment: Gastritis Celiac disease serology suggestive of celiac disease Hypokalemia Cdiff colitis Dizziness B12 deficiency Weight loss Chronic diarrhea Renal Insuffiency History of gastric bypass Coronary artery disease status post cardiac catheterization, on Plavix. Hypertension Diabetes mellitus, had episodes of hypoglycemia, her diabetic medications have been rearranged as per medicine. Plan: continue gluten-free diet on Plavix Continued GI and DVT prophylaxis Cardiology and neurology follow-up Diarrhea has resolved, requested to repeat stool Cdiff, patient last BM was Monday per patient. We will consider D/C oral Vancomycin, patient would have completed 10 days of therapy. Seen and discussed with Dr. Boyer
--- NOTE | 2017-04-24 22:30 | CP.PCM.PN ---
Subjective - Date & Time of Evaluation Date of Evaluation: 04/24/17 Time of Evaluation: 12:00 - Subjective Subjective: 66 yo F w/ htn, dm, CAD s/p stent, CHF w/ systolic dysfunction, asthma, mild CKD , admitted initially for profound hypokalemia in the setting of diarrhea, found to have C diff colitis; recently with worsened renal function and nephrology called back for the same; Patient's diarrhea has resolved; admission has been prolonged due to patient's fluctuating delirium; otherwise, she feels well; is ambulating small distances without difficulty; tolerating diet well; Objective - Vital Signs/Intake and Output Vital Signs (last 24 hours): Temp Pulse Resp BP Pulse Ox 98.4 F 72 20 138/78 98 04/24/17 16:01 04/24/17 16:01 04/24/17 16:01 04/24/17 16:01 04/24/17 16:01 Intake and Output: 04/24/17 04/25/17 18:59 06:59 Intake Total 580 Balance 580 - Labs Labs: 04/24/17 10:15 04/24/17 10:15 PT 11.4 Seconds (9.9-11.8) 04/18/17 07:33 INR 1.06 (0.93-1.08) 04/18/17 07:33 APTT 25.6 Seconds (23.7-30.8) 04/18/17 07:33 - Constitutional Appears: Non-toxic, No Acute Distress - Head Exam Head Exam: NORMAL INSPECTION - Eye Exam Eye Exam: Normal appearance. absent: Scleral icterus - ENT Exam ENT Exam: Mucous Membranes Moist - Respiratory Exam Respiratory Exam: Clear to Ausculation Bilateral, NORMAL BREATHING PATTERN - Cardiovascular Exam Cardiovascular Exam: REGULAR RHYTHM, +S1, +S2 - GI/Abdominal Exam GI & Abdominal Exam: Soft. absent: Distended, Tenderness - Exam Exam: absent: Bladder Distension - Extremities Exam Additional comments: no leg edema; - Neurological Exam Neurological Exam: Alert, Awake - Psychiatric Exam Psychiatric exam: Normal Affect, Normal Mood. absent: Agitated - Skin Skin Exam: Warm. absent: Cyanosis Assessment and Plan (1) MIKE (acute kidney injury) Assessment & Plan: MIKE on CKD; sudden jump in serum creatinine of unclear etiology; no overt pre- renal insult identified but may have been slightly volume depleted with restarting thiazide diuretic along with loss of renal autoregulation with MEGAN inhibitor; renal function already improving spontaneously; started on IVF last night; -holding lisinopril and hctz; can restart as appropriate as outpatient; otherwise, patient is stable for d/c; Status: Acute (2) CKD (chronic kidney disease) stage 3, GFR 30-59 ml/min Status: Chronic (3) HTN (hypertension) Assessment & Plan: BP controlled on propranolol; hold thiazide and lisinopril as above; Status: Chronic (4) Proteinuria Status: Chronic
== END 2017-04-24 21:00 | disposition home or self-care (01) | DRG 641 ==
LOC: ED 10:23 → ERH 13:04 → 2RSO 14:57 → OBSVTOIN 04-13 15:28 → 5RNO 04-19 17:24
PROVIDERS: ADMIT Internal Medicine; ATTEND Internal Medicine
PROC: 0DJ08ZZ Inspection of Upper Intestinal Tract, Via Natural or Artificial Opening Endoscopic (ICD-10-PCS; principal; 2017-04-18 13:45)
DX: E87.6 Hypokalemia (principal); E86.0 Dehydration; N17.9 Acute kidney failure, unspecified; A04.72 Enterocolitis due to Clostridium difficile, not specified as recurrent; I13.0 Hypertensive heart and chronic kidney disease with heart failure and stage 1 through stage 4 chronic kidney disease, or unspecified chronic kidney disease; I50.22 Chronic systolic (congestive) heart failure; F05 Delirium due to known physiological condition; E11.22 Type 2 diabetes mellitus with diabetic chronic kidney disease; N18.3 Chronic kidney disease, stage 3 (moderate); E11.65 Type 2 diabetes mellitus with hyperglycemia; I25.10 Atherosclerotic heart disease of native coronary artery without angina pectoris; J45.909 Unspecified asthma, uncomplicated; E83.42 Hypomagnesemia; R80.9 Proteinuria, unspecified; F32.9 Major depressive disorder, single episode, unspecified; F43.20 Adjustment disorder, unspecified; G44.209 Tension-type headache, unspecified, not intractable; E53.8 Deficiency of other specified B group vitamins; D64.9 Anemia, unspecified; K90.0 Celiac disease; K29.70 Gastritis, unspecified, without bleeding; E11.649 Type 2 diabetes mellitus with hypoglycemia without coma; K21.9 Gastro-esophageal reflux disease without esophagitis; R31.9 Hematuria, unspecified; D72.819 Decreased white blood cell count, unspecified; E55.9 Vitamin D deficiency, unspecified; Z86.73 Personal history of transient ischemic attack (TIA), and cerebral infarction without residual deficits; Z95.5 Presence of coronary angioplasty implant and graft; Z87.891 Personal history of nicotine dependence; Z98.84 Bariatric surgery status; Z78.9 Other specified health status; Z82.0 Family history of epilepsy and other diseases of the nervous system; Z82.49 Family history of ischemic heart disease and other diseases of the circulatory system

== ENCOUNTER 2017-07-31 05:34 | Inpatient (IN) | payer MEDICARE, OTHER ==
--- NOTE | 2017-07-31 05:59 | ED PDOC ---
Arrival/HPI - General Time Seen by Provider: 07/31/17 05:42 Historian: Patient - History of Present Illness Narrative History of Present Illness (Text): 07/31/17 05:59 Willow Cast is a 66 year old female, whose past medical history includes CHF, hypertension, asthma, diabetes, CAD with stents, gastric bypass, who presents to the Emergency department complaining of abdominal pain. Patient states she has been experiencing mid abdominal pain for the past week with associated diarrhea. Patient reports associated nausea and vomiting a few days prior, which has resolved. Patient also notes recent weight loss over the last month. Patient denies any recent antibiotic use. Patient also denies any fever, chills, chest pain, shortness of breath, urinary symptoms, back pain, neck pain , headache, dizziness, or any other complaints. PMD: Dr. Barreto Symptom Onset: Gradual Symptom Course: Unchanged Activities at Onset: Light Context: Home Past Medical History - Provider Review Nursing Documentation Reviewed: Yes - Past History Past History: No Previous - Infectious Disease Hx of Infectious Diseases: None - Tetanus Immunization Tetanus Immunization: Unknown - Past Medical History Past Medical History: No Previous - Cardiac Hx Cardiac Disorders: Yes Hx Congestive Heart Failure: Yes Hx Hypertension: Yes - Pulmonary Hx Respiratory Disorders: Yes Hx Asthma: Yes - Neurological Hx Neurological Disorder: No Hx Paralysis: No - HEENT Hx HEENT Disorder: Yes Other/Comment: glasses - Renal Hx Renal Disorder: No - Endocrine/Metabolic Hx Diabetes Mellitus Type 2: Yes - Hematological/Oncological Hx Blood Transfusions: No - Integumentary Hx Dermatological Disorder: No - Musculoskeletal/Rheumatological Hx Musculoskeletal Disorders: Yes - Gastrointestinal Hx Gastrointestinal Disorders: No - Genitourinary/Gynecological Hx Genitourinary Disorders: No - Psychiatric Hx Psychophysiologic Disorder: No Hx Emotional Abuse: No Hx Physical Abuse: No Hx Substance Use: No - Past Surgical History Past Surgical History: No Previous - Surgical History Hx Cardiac Catheterization: Yes Hx Coronary Stent: Yes - Anesthesia Hx Anesthesia Reactions: No Hx Malignant Hyperthermia: No - Suicidal Assessment Feels Threatened In Home Enviroment: No Family/Social History - Physician Review Nursing Documentation Reviewed: Yes Family/Social History: Unknown Family HX Smoking Status: Former Smoker Hx Alcohol Use: Yes (SOCIALLY) Hx Substance Use: No Hx Substance Use Treatment: No Allergies/Home Meds Allergies/Adverse Reactions: Allergies No Known Allergies Allergy (Verified 04/12/17 15:36) Review of Systems - Physician Review All systems were reviewed & negative as marked: Yes - Review of Systems Constitutional: Weight Change (+weight loss). absent: Fevers Eyes: Normal ENT: Normal Respiratory: Normal. absent: SOB, Cough Cardiovascular: Normal Gastrointestinal: Abdominal Pain, Diarrhea, Nausea, Vomiting Genitourinary Female: Normal. absent: Dysuria, Frequency, Hematuria, Urine Output Changes Musculoskeletal: Normal. absent: Back Pain, Neck Pain Skin: Normal. absent: Rash Neurological: Normal. absent: Headache, Dizziness Endocrine: Normal Hemo/Lymphatic: Normal Psychiatric: Normal Physical Exam Vital Signs Reviewed: Yes Vital Signs Temp Pulse Resp BP Pulse Ox 07/31/17 14:15 75 18 145/83 97 07/31/17 12:46 72 125/72 07/31/17 05:57 97.9 F 93 H 16 154/82 H 100 Temperature: Afebrile Blood Pressure: Normal Pulse: Regular Respiratory Rate: Normal Appearance: Positive for: Well-Appearing, Non-Toxic, Comfortable Pain Distress: None Mental Status: Positive for: Alert and Oriented X 3 - Systems Exam Head: Present: Atraumatic, Normocephalic Pupils: Present: PERRL Extroacular Muscles: Present: EOMI Conjunctiva: Present: Normal Mouth: Present: Moist Mucous Membranes Neck: Present: Normal Range of Motion Respiratory/Chest: Present: Clear to Auscultation, Good Air Exchange. No: Respiratory Distress, Accessory Muscle Use Cardiovascular: Present: Regular Rate and Rhythm, Normal S1, S2. No: Murmurs Abdomen: Present: Normal Bowel Sounds. No: Tenderness, Distention, Peritoneal Signs Back: Present: Normal Inspection Upper Extremity: Present: Normal Inspection. No: Cyanosis, Edema Lower Extremity: Present: Normal Inspection. No: Edema Neurological: Present: GCS=15, CN II-XII Intact, Speech Normal Skin: Present: Warm, Dry, Normal Color. No: Rashes Psychiatric: Present: Alert, Oriented x 3, Normal Insight, Normal Concentration Medical Decision Making ED Course and Treatment: 07/31/17 05:59 Impression: 66 year old female complaining of abdominal pain, diarrhea, and weight loss. Plan: -- EKG -- Labs, cardiac enzymes, amylase, lipase, blood cultures -- Urinalysis, urine cultures -- IV fluids -- Zofran -- Reassess and disposition Prior Visits: Notes and results from previous visits were reviewed. On 04/12/2017, pt was seen in the Emergency department for dizziness and diarrhea. Pt was admitted to the hospial for further evaluation. Progress Notes: - Lab Interpretations Microbiology Results: Microbiology Results 07/31/17 06:40 Blood-Venous S.aureus & Coag-Neg Staph PNA FISH - Final 07/31/17 06:40 Blood-Venous Blood Culture - Preliminary Gram Positive Cocci 07/31/17 06:40 Blood-Venous Gram Stain - Final 07/31/17 07:00 Blood-Venous Blood Culture - Preliminary NO GROWTH AFTER 48 HOURS Lab Results: 07/31/17 06:37 07/31/17 06:37 Lab Results 07/31/17 06:37: Sodium 139, Potassium 2.1 L* D, Chloride 93 L, Carbon Dioxide 36 H, Anion Gap 12, BUN 12, Creatinine 1.0, Est GFR ( Amer) > 60, Est GFR (Non-Af Amer) 55, Random Glucose 91, Calcium 8.3 L, Total Bilirubin 0.7, AST 64 H D, ALT 25, Alkaline Phosphatase 75, Lactate Dehydrogenase 714 H, Total Creatine Kinase 102, Troponin I < 0.01, Total Protein 7.4, Albumin 4.0, Globulin 3.3, Albumin/Globulin Ratio 1.2, Amylase 73, Lipase 217 07/31/17 06:37: PT 11.9, INR 1.03, APTT 25.4 07/31/17 06:37: WBC 4.3 L, RBC 3.40 L, Hgb 12.0, Hct 34.4 L, MCV 101.2, MCH 35.3 H, MCHC 34.9, RDW 16.7 H, Plt Count 94 L, MPV 9.3, Gran % 70.0 H, Lymph % ( Auto) 21.9 L, Crowley % (Auto) 7.9 H, Eos % (Auto) 0.2 L, Baso % (Auto) 0.0, Gran # 3.01, Lymph # 0.9 L, Crowley # 0.3, Eos # 0.0, Baso # 0.00 - Medication Orders Current Medication Orders: Discontinued Medications Atorvastatin Calcium (Lipitor) 80 mg PO DAILY [facility] Last Admin: 08/02/17 10:25 Dose: 80 mg Clopidogrel Bisulfate (Plavix) 75 mg PO [facility]ILY [facility] Last Admin: 08/02/17 10:24 Dose: 75 mg Digoxin (Lanoxin) 0.125 mg PO 1400 [facility] Last Admin: 08/02/17 15:14 Dose: 0.125 mg MAR Apical Pulse Rate Document 08/02/17 15:14 ML (Rec: 08/02/17 15:14 ML [id number]) Apical Pulse Rate Apical Pulse Rate (60-90 beats/min) 82 Duloxetine HCl (Cymbalta) 20 mg PO DAILY [facility] Last Admin: 08/02/17 10:24 Dose: 20 mg Heparin Sodium (Porcine) (Heparin) 5,000 units SC Q12 [facility] PRN Reason: Protocol Last Admin: 08/02/17 10:24 Dose: 5,000 units Subcutaneous Administrations Document 08/02/17 10:24 ML (Rec: 08/02/17 10:24 ML [id number]) Injection Site MAR Injection Site Left Arm Charges for Administration # of Subcutaneous Administrations 1 Sodium Chloride (Sodium Chloride 0.9%) 1,000 mls @ 100 mls/hr IV .Q10H [facility] Stop: 07/31/17 16:16 Last Admin: 07/31/17 06:48 Dose: 100 mls/hr eMAR Start Stop Document 07/31/17 06:48 RD (Rec: 07/31/17 06:48 RD [id number]) Intravenous Solution Start Date 07/31/17 Start Time 06:48 Potassium Chloride/Dextrose/Sod Cl (Potassium Chl 40 Meq In D5-1/2ns) 1,000 mls @ 125 mls/hr IV .Q8H [facility] Last Admin: 07/31/17 08:28 Dose: 125 mls/hr eMAR Start Stop Document 07/31/17 08:28 LA (Rec: 07/31/17 08:28 LA [id number]) Intravenous Solution Start Date 07/31/17 Start Time 08:28 Potassium Chloride (Potassium Chloride 10 Meq/100 Ml) 10 meq in 100 mls @ 50 mls/hr IVPB Q1H [facility] Stop: 07/31/17 17:14 Last Admin: 08/01/17 00:48 Dose: 50 mls/hr eMAR Start Stop Document 08/01/17 00:48 SBO (Rec: 08/01/17 00:[id number]) Intravenous Solution Start Date 08/01/17 Start Time 00:48 End Date 08/01/17 End time 02:45 Total Infusion Time 117 Magnesium Sulfate 2 gm/ Sodium (Chloride) 104 mls @ 102 mls/hr IVPB ONCE ONE Stop: 07/31/17 14:14 Last Admin: 07/31/17 13:46 Dose: 102 mls/hr eMAR Start Stop Document 07/31/17 13:46 LA (Rec: 07/31/17 13:47 LA [id number]) Intravenous Solution Start Date 07/31/17 Start Time 13:47 Potassium Chloride/Dextrose/Sod Cl (Potassium Chl 40 Meq In D5-1/2ns) 1,000 mls @ 75 mls/hr IV .[id number] [facility] Stop: 07/31/17 21:34 Last Admin: 07/31/17 17:15 Dose: 75 mls/hr eMAR Start Stop Document 07/31/17 17:15 LA (Rec: 07/31/17 17:15 LA [id number]) Intravenous Solution Start Date 07/31/17 Start Time 17:15 Potassium Chloride (Potassium Chloride 10 Meq/100 Ml) 10 meq in 100 mls @ 50 mls/hr IVPB ONCE ONE Stop: 08/01/17 05:42 Last Admin: 08/01/17 05:07 Dose: 50 mls/hr eMAR Start Stop Document 08/01/17 05:07 SBO (Rec: 08/01/17 05:07 SBO [id number]) Intravenous Solution Start Date 08/01/17 Start Time 05:07 End Date 08/01/17 End time 07:10 Total Infusion Time 123 Potassium Chloride (Potassium Chloride 10 Meq/100 Ml) 10 meq in 100 mls @ 50 mls/hr IVPB Q1H [facility] Stop: 08/01/17 09:44 Last Admin: 08/01/17 10:38 Dose: Not Given Non-Admin Reason: Patient Refused Insulin Human Regular (Humulin R Low) 0 units SC ACHS [facility] PRN Reason: Protocol Last Admin: 08/02/17 12:05 Dose: Not Given Non-Admin Reason: Blood Sugar Parameter Ketorolac Tromethamine (Toradol) 20 mg IVP STAT STA Stop: 08/01/17 07:59 Last Admin: 08/01/17 08:29 Dose: 20 mg MAR Pain Assessment Document 08/01/17 08:29 JAY (Rec: 08/01/17 08:29 JAY [id number]) Pain Reassessment Is this a pain reassessment? No Sleep Is patient sleeping during reassessment? No Presence of Pain Presence of Pain Yes Pain Scale Used Pain Scale Used Numeric Location Left, Right or Bilateral Bilateral Upper or Lower Lower Pain Location Body Site Abdomen Description Description Constant Intensity of Pain at present 7 Pain Behavior Irritability Restlessness Aggravating Factors None Alleviating Factors/Management Medication Techniques Alleviating Factors Medication IVP Administration Document 08/01/17 08:29 JAY (Rec: 08/01/17 08:29 JAY [id number]) Charges for Administration # of IVP Administrations 1 Magnesium Oxide (Mag-Ox) 400 mg PO STAT STA Stop: 07/31/17 12:29 Last Admin: 07/31/17 13:46 Dose: 400 mg Memantine (Namenda) 5 mg PO DAILY [facility] Last Admin: 08/02/17 10:24 Dose: 5 mg Mirtazapine (Remeron) 15 mg PO HS PRN PRN Reason: Insomnia Last Admin: 07/31/17 22:40 Dose: 15 mg Morphine Sulfate (Morphine) 2 mg IVP STAT STA Stop: 07/31/17 06:25 Last Admin: 07/31/17 06:56 Dose: 2 mg PRIYA Pain Assessment Document 07/31/17 06:56 RD (Rec: 07/31/17 06:56 RD [id number]) Pain Reassessment Is this a pain reassessment? No Sleep Is patient sleeping during reassessment? No Presence of Pain Presence of Pain Yes IVP Administration Document 07/31/17 06:56 RD (Rec: 07/31/17 06:56 RD [id number]) Charges for Administration # of IVP Administrations 1 Ondansetron HCl (Zofran Inj) 4 mg IVP STAT STA Stop: 07/31/17 06:18 Last Admin: 07/31/17 06:48 Dose: 4 mg IVP Administration Document 07/31/17 06:48 RD (Rec: 07/31/17 06:48 RD [id number]) Charges for Administration # of IVP Administrations 1 Ondansetron HCl (Zofran Inj) 4 mg IVP Q4H PRN PRN Reason: Nausea/Vomiting Pantoprazole Sodium (Protonix Inj) 40 mg IVP Q12 [facility] Last Admin: 08/02/17 10:24 Dose: 40 mg IVP Administration Document 08/02/17 10:24 ML (Rec: 08/02/17 10:24 ML [id number]) Charges for Administration # of IVP Administrations 1 Potassium Chloride (Klor-Con 10) 40 meq PO STAT STA Stop: 07/31/17 12:28 Last Admin: 07/31/17 13:46 Dose: 40 meq Potassium Chloride (K-Dur 20 Meq Er Tab) 40 meq PO ONCE ONE Stop: 07/31/17 16:31 Last Admin: 07/31/17 17:29 Dose: 40 meq Potassium Chloride (K-Dur 20 Meq Er Tab) 40 meq PO STAT STA Stop: 08/01/17 07:43 Last Admin: 08/01/17 08:29 Dose: 40 meq Potassium Chloride (K-Dur 20 Meq Er Tab) 40 meq PO Q1H [facility] Stop: 08/02/17 16:01 Last Admin: 08/02/17 15:14 Dose: 40 meq Potassium Phos/Sodium Phos (Neutra-Phos) 1 pkt PO STAT STA Stop: 07/31/17 12:30 Last Admin: 07/31/17 16:05 Dose: 1 pkt Propranolol HCl (Inderal) 40 mg PO DAILY [facility] Last Admin: 08/02/17 10:24 Dose: 40 mg Thiamine HCl (Vitamin B1 Tab) 100 mg PO Q8H [facility] Last Admin: 08/02/17 06:12 Dose: Not Given Non-Admin Reason: Patient Refused - Transfer of Care Patient signed out to Dr:: marlena godfrey dispo - Scribe Statement The provider has reviewed the documentation as recorded by the Scribe Lydia Diaz All medical record entries made by the Scribe were at my direction and personally dictated by me. I have reviewed the chart and agree that the record accurately reflects my personal performance of the history, physical exam, medical decision making, and the department course for this patient. I have also personally directed, reviewed, and agree with the discharge instructions and disposition. Disposition/Present on Arrival - Present on Arrival Any Indicators Present on Arrival: No History of DVT/PE: No History of Uncontrolled Diabetes: No Urinary Catheter: No History Surgical Site Infection Following: None - Disposition Have Diagnosis and Disposition been Completed?: Yes Diagnosis: Hypokalemia due to loss of potassium Disposition: HOSPITALIZED Disposition Time: 07:00 Condition: STABLE
[2017-07-31] MEDS ORDERED: Sodium Chloride 0.9% 1,000 ML IV STA (06:17)
[2017-07-31] MEDS ORDERED: Morphine 2 mg/ml ISec IVP STA (06:24)
[2017-07-31 07:03] LABS: EOS % 0.2 % (1.5-5.0); GRAN # 3.01 (1.4-6.5); LYMPH # 0.9 (1.2-3.4); LYMPH % 21.9 % (22.0-35.0); MEAN CELL VOLUME 101.2 fl (80.0-105.0); MEAN CORPUSCULAR HEMOGLOBIN 35.3 pg (25.0-35.0); MEAN CORPUSCULAR HGB CONC 34.9 g/dl (31.0-37.0); MEAN PLATELET VOLUME 9.3 fl (7.0-11.0); MONO # 0.3 (0.1-0.6); MONO % 7.9 % (1.0-6.0); RBC 3.4 10^6/uL (3.5-6.1); RED CELL DISTRIBUTION WIDTH 16.7 % (11.5-14.5); WHITE BLOOD COUNT 4.3 10^3/ul (4.5-11.0)
--- NOTE | 2017-07-31 07:15 | ED PDOC ---
Physical Exam Vital Signs Reviewed: Yes Vital Signs Temp Pulse Resp BP Pulse Ox 07/31/17 05:57 97.9 F 93 H 16 154/82 H 100 Temperature: Afebrile Blood Pressure: Hypertensive Pulse: Regular Respiratory Rate: Normal Appearance: Positive for: Well-Appearing Pain Distress: None Mental Status: Positive for: Alert and Oriented X 3 Medical Decision Making ED Course and Treatment: 07/31/17 07:14 Patient signed out to me by Dr. Lorenzo. Patient here in the ER for LUQ abdominal pain with associated nausea, vomiting, and diarrhea; as well as significant weight loss over the past month. Currently awaiting lab work results. - Lab Interpretations Lab Results: 07/31/17 06:37 07/31/17 06:37 Lab Results 07/31/17 06:37: Sodium 139, Potassium 2.1 L* D, Chloride 93 L, Carbon Dioxide 36 H, Anion Gap 12, BUN 12, Creatinine 1.0, Est GFR ( Amer) > 60, Est GFR (Non-Af Amer) 55, Random Glucose 91, Calcium 8.3 L, Total Bilirubin 0.7, AST 64 H D, ALT 25, Alkaline Phosphatase 75, Lactate Dehydrogenase 714 H, Total Creatine Kinase 102, Troponin I < 0.01, Total Protein 7.4, Albumin 4.0, Globulin 3.3, Albumin/Globulin Ratio 1.2, Amylase 73, Lipase 217 07/31/17 06:37: PT 11.9, INR 1.03, APTT 25.4 07/31/17 06:37: WBC 4.3 L, RBC 3.40 L, Hgb 12.0, Hct 34.4 L, MCV 101.2, MCH 35.3 H, MCHC 34.9, RDW 16.7 H, Plt Count 94 L, MPV 9.3, Gran % 70.0 H, Lymph % ( Auto) 21.9 L, [place] % (Auto) 7.9 H, Eos % (Auto) 0.2 L, Baso % (Auto) 0.0, Gran # 3.01, Lymph # 0.9 L, [place] # 0.3, Eos # 0.0, Baso # 0.00 - Medication Orders Current Medication Orders: Potassium Chloride/Dextrose/Sod Cl (Potassium Chl 40 Meq In D5-1/2ns) 1,000 mls @ 125 mls/hr IV .Q8H JOANNE Last Admin: 07/31/17 08:28 Dose: 125 mls/hr eMAR Start Stop Document 07/31/17 08:28 LA (Rec: 07/31/17 08:28 LA [id number]) Intravenous Solution Start Date 07/31/17 Start Time 08:28 Discontinued Medications Sodium Chloride (Sodium Chloride 0.9%) 1,000 mls @ 100 mls/hr IV .Q10H STA Stop: 07/31/17 16:16 Last Admin: 07/31/17 06:48 Dose: 100 mls/hr eMAR Start Stop Document 07/31/17 06:48 RD (Rec: 07/31/17 06:48 RD [id number]) Intravenous Solution Start Date 07/31/17 Start Time 06:48 Morphine Sulfate (Morphine) 2 mg IVP STAT STA Stop: 07/31/17 06:25 Last Admin: 07/31/17 06:56 Dose: 2 mg MAR Pain Assessment Document 07/31/17 06:56 RD (Rec: 07/31/17 06:56 RD [id number]) Pain Reassessment Is this a pain reassessment? No Sleep Is patient sleeping during reassessment? No Presence of Pain Presence of Pain Yes IVP Administration Document 07/31/17 06:56 RD (Rec: 07/31/17 06:56 RD [id number]) Charges for Administration # of IVP Administrations 1 Ondansetron HCl (Zofran Inj) 4 mg IVP STAT STA Stop: 07/31/17 06:18 Last Admin: 07/31/17 06:48 Dose: 4 mg IVP Administration Document 07/31/17 06:48 RD (Rec: 07/31/17 06:48 RD [id number]) Charges for Administration # of IVP Administrations 1 - Scribe Statement The provider has reviewed the documentation as recorded by the Cindy Alexander Provider Scribe Attestation: All medical record entries made by the Scribe were at my direction and personally dictated by me. I have reviewed the chart and agree that the record accurately reflects my personal performance of the history, physical exam, medical decision making, and the department course for this patient. I have also personally directed, reviewed, and agree with the discharge instructions and disposition. Disposition/Present on Arrival - Present on Arrival Any Indicators Present on Arrival: No History of DVT/PE: No History of Uncontrolled Diabetes: No Urinary Catheter: No History of Decub. Ulcer: No History Surgical Site Infection Following: None - Disposition Have Diagnosis and Disposition been Completed?: Yes Diagnosis: Hypokalemia due to loss of potassium Disposition: HOME/ ROUTINE Disposition Time: 09:40 Patient Plan: Discharge Condition: STABLE Referrals: Shagufta Barreto MD [Primary Care Provider] - Follow up with primary
[2017-07-31 07:18] LABS: ALB/GLOB RATIO 1.2 (1.1-1.8); ALT/SGPT 25 U/L (7-56); AMYLASE 73 U/L (35-125); AST/SGOT 64 U/L (14-36); BLOOD UREA NITROGEN 12 mg/dL (7-21); CALCIUM 8.3 mg/dL (8.4-10.5); GFR AFRICAN-AMERICAN > 60; GFR NON-AFRICAN AMERICAN 55; LIPASE 217 U/L (23-300)
[2017-07-31 07:21] LABS: INR 1.03 (0.93-1.08); PARTIAL THROMBOPLASTIN TIME 25.4 Seconds (25.1-36.5); PROTHROMBIN TIME 11.9 SECONDS (9.4-12.5)
[2017-07-31 07:22] LABS: TROPONIN I < 0.01 ng/mL
[2017-07-31] MEDS ORDERED: Potassium Chl 40 mEq in D5-1/2 1,000 ML IV SCH ×2 (08:15→15:49)
[2017-07-31 12:27] LABS: MAGNESIUM 1.3 mg/dL (1.7-2.2)
[2017-07-31] MEDS ORDERED: Potassium Chloride 10 mEq ER Tab PO STA (12:27)
[2017-07-31] MEDS ORDERED: Magnesium Oxide 400 mg Tab UD PO STA (12:28)
[2017-07-31] MEDS ORDERED: Potassium & Sodium Phosphate PO STA (12:29)
[2017-07-31] MEDS ORDERED: Magnesium Sulfate 2 GM in Sodium Chloride 0.9% 100 ML IVPB ONE (13:13)
--- NOTE | 2017-07-31 16:12 | CP.PCM.HP ---
<Patricia Hayden - Last Filed: 07/31/17 15:26> History of Present Illness - History of Present Illness History of Present Illness: Patricia Hayden, PGY1, H&P for Dr Zuniga: CC: chronic diarrhea x past few months 66 year old female, with PMH CHF with EF 34% (11/2016), celiac disease ( diagnosed last admission 04/2017), hypertension, asthma, diabetes, CAD with stents, gastric bypass, presents for ongoing chronic diarrhea for past few 4-6 months. Pt describes the diarrheal episodes 4-6 daily, watery brown, denies hematochezia, melena, tarry stools, tenesmus. Pt also reports decreased appetite , and unintentional weight loss over past few months (unable to quantify). Pt also complains of achy midabdominal pain, lasting few minutes at a time, occurs q6-8 hours, denies association with meals. Of note, pt was recently admitted for similar complaints in 04/2017, found to have C diff colitis and celiac disease. EGD 04/2017 showed no gastritis/bleeding ulcers. Pt sent home on PO antibiotics, which patient states that she has not completed the course. Pt states that she has not been compliant with gluten free diet, her medications or visits with any of the doctors. Denies fever, chills, nausea, vomiting, sob, cp, urinary symptoms, back pain, neck pain, headache, dizziness, steatorrhea, or any other complaints. Denies recent antibiotic use, recent travel, unusual food consumption. No prior colonoscopy (pt failed to follow up with Dr Boyer as outpatient). In ED, afebrile, vital signs stable, cmp remarkable for hypokaelmia K 2.1, Mg 1.3, mildly low Phosp. Given Zofran 4 mg IV, NS with 40 MEQ KCL at 125, and morphine 2 mg IV given. 12 point ROS obtained and negative, except as per HPI. PMD: Dr. Barreto PMH: HTN, Celiac disease, CHF with EF 34% (11/2016), DM, asthma, CAD, possible TIA, and mood disorder PSH: Gastric bypass, cardiac cath Home meds: As per MAR All: NKDA SH: Former smoker (quit 7 years ago), drinks 3x/week (wine, vodka) and denies drug use. Pt lives alone. Daughter lives nearby to help her out. FH: Alzheimer's in mother and aunt lung cancer - aunt Present on Admission - Present on Admission Any Indicators Present on Admission: No History of DVT/PE: No History of Uncontrolled Diabetes: No Urinary Catheter: No Decubitus Ulcer Present: No Review of Systems - Review of Systems All systems: reviewed and no additional remarkable complaints except Review of Systems: as per hpi Past Patient History - Infectious Disease Hx of Infectious Diseases: None - Tetanus Immunizations Tetanus Immunization: Unknown - Past Medical History & Family History Past Medical History?: Yes - Past Social History Smoking Status: Former Smoker - CARDIAC Hx Cardiac Disorders: Yes Hx Congestive Heart Failure: Yes Hx Hypertension: Yes - PULMONARY Hx Respiratory Disorders: Yes Hx Asthma: Yes - NEUROLOGICAL Hx Neurological Disorder: No Hx Paralysis: No - HEENT Hx HEENT Problems: Yes Other/Comment: glasses - RENAL Hx Chronic Kidney Disease: No - ENDOCRINE/METABOLIC Hx Diabetes Mellitus Type 2: Yes - HEMATOLOGICAL/ONCOLOGICAL Hx Blood Transfusions: No - INTEGUMENTARY Hx Dermatological Problems: No - MUSCULOSKELETAL/RHEUMATOLOGICAL Hx Musculoskeletal Disorders: Yes - GASTROINTESTINAL Hx Gastrointestinal Disorders: No - GENITOURINARY/GYNECOLOGICAL Hx Genitourinary Disorders: No - PSYCHIATRIC Hx Psychophysiologic Disorder: No Hx Emotional Abuse: No Hx Physical Abuse: No Hx Substance Use: No - SURGICAL HISTORY Hx Cardiac Catheterization: Yes Hx Coronary Stent: Yes - ANESTHESIA Hx Anesthesia Reactions: No Hx Malignant Hyperthermia: No Meds Allergies/Adverse Reactions: Allergies Allergy/AdvReac Type Severity Reaction Status Date / Time No Known Allergies Allergy Verified 04/12/17 15:36 Physical Exam - Constitutional Appears: Non-toxic, No Acute Distress - Head Exam Head Exam: ATRAUMATIC, NORMOCEPHALIC - Eye Exam Eye Exam: EOMI, PERRL Pupil Exam: NORMAL ACCOMODATION, PERRL - ENT Exam ENT Exam: Mucous Membranes Moist - Neck Exam Neck exam: Positive for: Full Rom - Respiratory Exam Respiratory Exam: Clear to Auscultation Bilateral. absent: Chest Wall Tenderness, Rhonchi, Wheezes, Respiratory Distress, Stridor - Cardiovascular Exam Cardiovascular Exam: RRR, +S1, +S2. absent: Systolic Murmur - GI/Abdominal Exam GI & Abdominal Exam: Hyperactive Bowel Sounds, Soft, Tenderness (TTP in midabdominal region). absent: Diminished Bowel Sounds, Distended, Guarding, Hernia, Mass, Organomegaly, Pulsatile Mass, Rebound, Rigid - Extremities Exam Extremities exam: Negative for: calf tenderness, pedal edema - Back Exam Back exam: NORMAL INSPECTION - Neurological Exam Neurological exam: Alert, Oriented x3 - Psychiatric Exam Psychiatric exam: Normal Affect, Normal Mood - Skin Skin Exam: Dry, Normal Color, Warm Results - Vital Signs Recent Vital Signs: Last Vital Signs Temp 97.9 F 07/31/17 05:57 Pulse 75 07/31/17 14:15 Resp 18 07/31/17 14:15 BP 145/83 07/31/17 14:15 Pulse Ox 97 07/31/17 14:15 - Labs Result Diagrams: 07/31/17 06:37 07/31/17 06:37 Labs: Laboratory Results - last 24 hr 07/31/17 12:08 Phosphorus 2.4 L Magnesium 1.3 L Assessment & Plan - Assessment and Plan (Free Text) Assessment: 66 year old female with PMH noncompliance, CHF (EF 34%), celiac disease ( recently diagnosed), HTN, asthma, DM, CAD x 2 stents, gastric bypass (10 years ago), presents for chronic watery diarrhea, found to be severely hypokalemic on admission: Chronic diarrhea: - likely 2/2 celiac sprue vs pancreatic insufficiency vs IBS vs giardiasis vs IBS vs ova/parasitic vs colon cancer vs microscopic colitis vs malabsorption - Cont to monitor frequency/episodes of diarrhea. Communicated with nursing staff. - prn zofran - start on CLD - Chronic diarrhea workup ordered. F/u results - GI consulted. F/u recs. Hypokalemia/hypomagnesemia: 2/2 likely persistent diarrhea vs medication induced (less likely) - EKG shows 63 NSR. prolonged Qtc 497 ms, - hypomagnesemia causing further persistence of hypokalemia. -Continue to replenish K aggressively (giving 80 meq PO on top of 40 meq IV for today, adding KCl 40 meq/L to IVF) -Mag sulfate 2 g given -Cont to monitor Hx of CAD with stents/CHF/HLD: - home med ASA 81, Plavix 75 mg, Inderal, statin, digoxin - f/u lipid panel Hx of DM: - ISS low coverage. - Hgb A1C - Monitor Psych: - C/w remeron, memantine - hold seroquel in setting of prolonged QTc PPX: Protonix, heparin SQ Discussed with Dr Zuniga. Patricia Hayden PGY1 - Date & Time Date: 07/31/17 Time: 16:12 <Diana Zuniga - Last Filed: 08/02/17 07:44> Results - Vital Signs Recent Vital Signs: Last Vital Signs Temp 98.6 F 08/02/17 06:00 Pulse 72 08/02/17 06:00 Resp 20 08/02/17 06:00 BP 128/77 08/02/17 06:00 Pulse Ox 100 08/02/17 06:00 - Labs Result Diagrams: 08/02/17 06:45 08/01/17 05:20 Labs: Laboratory Results - last 24 hr 07/31/17 08/01/17 08/01/17 20:55 07:47 11:47 WBC RBC Hgb Hct MCV MCH MCHC RDW Plt Count MPV Gran % Lymph % (Auto) [place] % (Auto) Eos % (Auto) Baso % (Auto) Gran # Lymph # [place] # Eos # Baso # POC Glucose (mg/dL) 117 H 104 Hemoglobin A1c 5.6 Urine Color Urine Appearance Urine pH Ur Specific [place] Urine Protein Urine Glucose (UA) Urine Ketones Urine Blood Urine Nitrate Urine Bilirubin Urine Urobilinogen Ur Leukocyte Esterase Urine RBC Urine WBC Ur Epithelial Cells Urine Bacteria Hyaline Casts 08/01/17 08/01/17 08/01/17 16:23 20:28 21:50 WBC RBC Hgb Hct MCV MCH MCHC RDW Plt Count MPV Gran % Lymph % (Auto) [place] % (Auto) Eos % (Auto) Baso % (Auto) Gran # Lymph # [place] # Eos # Baso # POC Glucose (mg/dL) 136 H 112 H Hemoglobin A1c Urine Color Dark yellow Urine Appearance Sl cloudy Urine pH 6.5 Ur Specific [place] 1.020 Urine Protein 30 H Urine Glucose (UA) Negative Urine Ketones Trace H Urine Blood Negative Urine Nitrate Negative Urine Bilirubin Moderate H Urine Urobilinogen 0.2 Ur Leukocyte Esterase Trace H Urine RBC 0 - 2 Urine WBC 1 - 3 Ur Epithelial Cells 0 - 2 Urine Bacteria Rare Hyaline Casts 0 - 2 08/02/17 08/02/17 06:45 07:28 WBC 3.1 L RBC 2.60 L Hgb 9.1 L Hct 26.3 L MCV 101.2 MCH 35.0 MCHC 34.6 RDW 17.3 H Plt Count 118 L MPV 9.0 Gran % 52.6 Lymph % (Auto) 36.0 H [place] % (Auto) 10.1 H Eos % (Auto) 1.0 L Baso % (Auto) 0.3 Gran # 1.62 Lymph # 1.1 L [place] # 0.3 Eos # 0.0 Baso # 0.01 POC Glucose (mg/dL) 60 L Hemoglobin A1c Urine Color Urine Appearance Urine pH Ur Specific [place] Urine Protein Urine Glucose (UA) Urine Ketones Urine Blood Urine Nitrate Urine Bilirubin Urine Urobilinogen Ur Leukocyte Esterase Urine RBC Urine WBC Ur Epithelial Cells Urine Bacteria Hyaline Casts Attending/Attestation - Attestation I have personally seen and examined this patient.: Yes I have fully participated in the care of the patient.: Yes I have reviewed all pertinent clinical information: Yes Notes (Text): 08/02/17 07:39 Patient was seen and examined with medical sales consultant.Agreed with assessment and plan. 67 yrs old Female with PMH of Celiac disease, C. diff, CHF with systolic dysfunction, CAD (with stents), HTN, DM, and cognitive disorders presents to the ED with diarrhea, 4-5 stools per day ongoing for last 3-4 months , getting worse recently.Patient is also found to have severe Hypokalemia .Patient is non compliance with gluten free diet, discuss with her in detail.We will get stools tudies to rule out c diff colitis.We will replace electrolytes and monitor in telemetry.Patient is euvolemic at this time.We will follow up GI recommendations.
[2017-07-31] MEDS ORDERED: Potassium Chloride 20 mEq ER Tab PO ONE (16:30)
--- NOTE | 2017-07-31 16:38 | CARD ---
APPROVED REPORT EKG Measurement Heart [id number] <Conclusion> Normal sinus rhythm Prolonged QT Abnormal ECG
[2017-07-31] MEDS: Insulin Reg-LOW-Coverage SC SCH ×2 (17:27→22:54)
--- NOTE | 2017-07-31 19:27 | CARD ---
APPROVED REPORT EKG Measurement Heart [id number] <Conclusion> Normal sinus rhythm Prolonged QT Abnormal ECG
[2017-07-31 21:15] LABS: ALB/GLOB RATIO 1.2 (1.1-1.8); ALBUMIN 3.7 g/dL (3.0-4.8); ALT/SGPT 27 U/L (7-56); AST/SGOT 68 U/L (14-36); BLOOD UREA NITROGEN 10 mg/dL (7-21); CALCIUM 7.9 mg/dL (8.4-10.5); GFR AFRICAN-AMERICAN > 60; GFR NON-AFRICAN AMERICAN > 60
[2017-07-31 21:21] LABS: LDL CHOLESTEROL 55 mg/dL (0-129)
[2017-07-31 21:22] LABS: HDL CHOLESTEROL 99 mg/dL (29-60)
[2017-08-01 00:18] VITALS: BMI 22.7
--- NOTE | 2017-08-01 05:43 | CP.PCM.CON ---
<Pepe Lowery - Last Filed: 08/01/17 12:44> History of Present Illness - History of Present Illness History of Present Illness: GI Consult Note: 67F with pmh of Celiac disease, C. diff colitis, CHF, CAD (with stents), HTN, DM , and asthma presents to the ED with diarrhea. Patient states that the diarrhea first started 3 months ago. She states that she generally has 3-5 bouts of non blood and non bilious diarrhea per day. She states that the diarrhea is sometimes explosive and sometimes she doesn't have enough time to get to the bathroom. She also states that she has been having some weightloss of 20 pounds during this time. Pt states that she was just here in 04/2017 for dizziness and lightheaded with some complaints of diarrhea. Further work up showed the patient has Celiac disease and C. diff positive which the pt was discharged home with Shaio FELIBERTO and was recommended a gluten free diet. Pt states that she is on gluten free diet but sometimes doesn't abide with it. She denies any sick contacts or recent travel. 12 Point ROS performed and negative other than stated above. PMH: Celiac disease, C. diff, CHF, CAD (with stents), HTN, DM, and asthma PSH: Gastric bypass? 25 years ago Med: refer to [facility]: [facility] SH: former smoker (smoke 1 PPD x 30 years, Quit 8 years ago), Denies drinking or drugs. 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 ; Colonoscopy 8 years ago and was unremarkable Review of Systems - Review of Systems All systems: reviewed and no additional remarkable complaints except Past Patient History - Infectious Disease Hx of Infectious Diseases: None - Tetanus Immunizations Tetanus Immunization: Unknown - Past Medical History & Family History Past Medical History?: Yes - Past Social History Smoking Status: Former Smoker - CARDIAC Hx Cardiac Disorders: Yes Hx Angina: No Hx Cardia Arrhythmia: No Hx Circulatory Problems: No Hx Congestive Heart Failure: Yes Hx Heart Murmur: No Hx Heart Transplant: No Hx Hypercholesterolemia: Yes Hx Hypertension: Yes Hx Internal Defibrillator: No Hx Mitral Valve Prolapse: No Hx Pacemaker: No Hx Peripheral Edema: No Hx Peripheral Vascular Disease: No - PULMONARY Hx Respiratory Disorders: Yes Hx Asthma: Yes Hx Bronchitis: No Hx Chronic Obstructive Pulmonary Disease (COPD): Yes Hx Emphysema: No Hx Pneumonia: Yes Hx Respiratory Aspiration: No Hx Respiratory Tract Infection: No Hx Sleep Apnea: No Hx Tuberculosis: No - NEUROLOGICAL Hx Neurological Disorder: Yes Hx Alzheimer's Disease: No HX Cerebrovascular Accident: No Hx Dementia: No Hx Dizziness: No Hx Meningitis: No Hx Migraine: No Hx Parkinson's Disease: No Hx Seizures: No Hx Transient Ischemic Attacks (TIA): Yes - HEENT Hx HEENT Problems: Yes (wears glasses) Hx Blind: No Hx Cataracts: No Hx Deafness: No Hx Difficulty Chewing: No Hx Epistaxis: No Hx Glaucoma: No Hx Macular Degeneration: No - RENAL Hx Chronic Kidney Disease: No Hx Dialysis: No Hx Kidney Stones: No Hx Neurogenic Bladder: No Hx Pyelonephritis: No Hx Renal (Kidney) Cancer: No Hx Renal Failure: No - ENDOCRINE/METABOLIC Hx Endocrine Disorders: Yes Hx Adrenal Cancer: No Hx Diabetes Insipidus: No Hx Diabetes Mellitus Type 1: No Hx Diabetes Mellitus Type 2: Yes Hx Hyperthyroidism: No Hx Hypothyroidism: No Hx Systemic Lupus Erythematosus: No - HEMATOLOGICAL/ONCOLOGICAL Hx Blood Disorders: No Hx AIDS: No Hx Anemia: No Hx Cancer: No Hx Chemotherapy: No Hx Cirrhosis: No Hx Hemophilia: No Hx Hepatitis A: No Hx Hepatitis B: No Hx Hepatitis C: No Hx Human Immunodeficiency Virus (HIV): No Hx Metastesis: No Hx Shingles: No Hx Sickle Cell Disease: No Hx Unexplained Bleeding: No - INTEGUMENTARY Hx Dermatological Problems: No Hx Basil Cell: No Hx Eczema: No Hx Melanoma: No Hx Psoriasis: No Hx Squamous Cell: No - MUSCULOSKELETAL/RHEUMATOLOGICAL Hx Musculoskeletal Disorders: Yes Hx Arthritis: Yes Hx Back Pain: No Hx Degenerative Joint Disease: No Hx Falls: Yes Hx Fractures: No Hx Gout: No Hx Herniated Disk: No Hx Myasthenia Gravis: No Hx Osteoarthritis: No Hx Osteomyelitis: No Hx Osteoporosis: No Hx Rhabdomyolysis: No Hx Spinal Stenosis: No Hx Unsteady Gait: No - GASTROINTESTINAL Hx Gastrointestinal Disorders: Yes Hx Colostomy: No Hx Crohn's Disease: No Hx Diverticulitis: No Hx Gall Bladder Disease: No Hx Gastroesophageal Reflux: Yes Hx Ileostomy: No Hx Liver Failure: No Hx Pancreatitis: No HX Swallowing Problems: No Hx Ulcer: No Other/Comment: Diarrhea and C diff - GENITOURINARY/GYNECOLOGICAL Hx Genitourinary Disorders: No Hx Hematuria: No Hx Incontinence: No Hx Sexually Transmitted Disorders: No Hx Urinary Tract Infection: No - PSYCHIATRIC Hx Psychophysiologic Disorder: Yes Hx Anxiety: Yes Hx Bipolar Disorder: No Hx Depression: Yes Hx Emotional Abuse: No Hx Hallucinations: No Hx Panic Symptoms: No Hx Paranoia: No Hx Post Traumatic Stress Disorder: No Hx Psychosis: No Hx Physical Abuse: No Hx Schizophrenia: No Hx Sexual Abuse: No - SURGICAL HISTORY Hx Surgeries: Yes (foot surgery) Hx Amputation: No Hx Appendectomy: No Hx Cardiac Catheterization: Yes Hx Cholecystectomy: No Hx Coronary Stent: Yes Hx Gastric Bypass Surgery: Yes Hx Hysterectomy: No Hx Joint Replacement: No Hx Kidney Transplant: No Hx Liver Transplant: No Hx Mastectomy: No Hx Musculoskeletal Surgery: No Hx Open Heart Surgery: No Hx Orthopedic Surgery: No Hx Splenectomy: No Hx Valve Replacement: No - ANESTHESIA Hx Anesthesia Reactions: No Hx Malignant Hyperthermia: No Meds Allergies/Adverse Reactions: Allergies Allergy/AdvReac Type Severity Reaction Status Date / Time No Known Allergies Allergy Verified 04/12/17 15:36 - Medications Medications: Current Medications Atorvastatin Calcium (Lipitor) 80 mg PO DAILY [facility] Last Admin: 07/31/17 12:46 Dose: 80 mg Clopidogrel Bisulfate (Plavix) 75 mg PO DAILY [facility] Last Admin: 07/31/17 12:46 Dose: 75 mg Digoxin (Lanoxin) 0.125 mg PO 1400 [facility] Duloxetine HCl (Cymbalta) 20 mg PO DAILY [facility] Last Admin: 07/31/17 12:47 Dose: 20 mg Heparin Sodium (Porcine) (Heparin) 5,000 units SC Q12 [facility] PRN Reason: Protocol Last Admin: 07/31/17 22:33 Dose: 5,000 units Potassium Chloride (Potassium Chloride 10 Meq/100 Ml) 10 meq in 100 mls @ 50 mls/hr IVPB ONCE ONE Stop: 08/01/17 05:42 Last Admin: 08/01/17 05:07 Dose: 50 mls/hr Insulin Human Regular (Humulin R Low) 0 units SC ACHS [facility] PRN Reason: Protocol Last Admin: 07/31/17 22:54 Dose: Not Given Memantine (Namenda) 5 mg PO DAILY [facility] Last Admin: 07/31/17 12:47 Dose: 5 mg Mirtazapine (Remeron) 15 mg PO PRN PRN Reason: Insomnia Last Admin: 07/31/17 22:40 Dose: 15 mg Ondansetron HCl (Zofran Inj) 4 mg IVP Q4H PRN PRN Reason: Nausea/Vomiting Pantoprazole Sodium (Protonix Inj) 40 mg IVP Q12 [facility] Last Admin: 07/31/17 22:31 Dose: 40 mg Propranolol HCl (Inderal) 40 mg PO DAILY [facility] Last Admin: 07/31/17 12:46 Dose: 40 mg Thiamine HCl (Vitamin B1 Tab) 100 mg PO Q8H [facility] Last Admin: 08/01/17 05:05 Dose: 100 mg Physical Exam - Constitutional Appears: No Acute Distress - Head Exam Head Exam: ATRAUMATIC, NORMOCEPHALIC - Eye Exam Eye Exam: EOMI, PERRL Pupil Exam: NORMAL ACCOMODATION - ENT Exam ENT Exam: Mucous Membranes Moist - Respiratory Exam Respiratory Exam: Clear to Auscultation Bilateral. absent: Rales, Wheezes - Cardiovascular Exam Cardiovascular Exam: REGULAR RHYTHM, RRR, +S1, +S2 - GI/Abdominal Exam GI & Abdominal Exam: Normal Bowel Sounds, Soft. absent: Tenderness - Extremities Exam Extremities exam: Negative for: calf tenderness, pedal edema - Neurological Exam Neurological exam: Alert, Oriented x3 - Psychiatric Exam Psychiatric exam: Normal Affect, Normal Mood - Skin Skin Exam: Dry, Intact, Warm Results - Vital Signs Recent Vital Signs: Last Vital Signs Temp 97.5 F L 08/01/17 00:01 Pulse 64 08/01/17 00:01 Resp 20 08/01/17 00:01 BP 155/87 H 08/01/17 00:01 Pulse Ox 95 08/01/17 00:01 - Labs Result Diagrams: 08/01/17 05:20 08/01/17 05:20 Labs: Laboratory Results - last 24 hr 07/31/17 07/31/17 07/31/17 12:08 17:24 20:55 Sodium 137 Potassium 3.4 L Chloride 97 L Carbon Dioxide 31 Anion Gap 12 BUN 10 Creatinine 0.9 Est GFR ( Amer) > 60 Est GFR (Non-Af Amer) > 60 POC Glucose (mg/dL) 128 H Random Glucose 154 H Calcium 7.9 L Phosphorus 2.4 L Magnesium 1.3 L Total Bilirubin 0.5 AST 68 H ALT 27 Alkaline Phosphatase 66 Total Protein 6.8 Albumin 3.7 Globulin 3.2 Albumin/Globulin Ratio 1.2 Triglycerides Cholesterol LDL Cholesterol Direct HDL Cholesterol Digoxin Alcohol, Quantitative 07/31/17 07/31/17 07/31/17 20:55 20:55 20:55 Sodium Potassium Chloride Carbon Dioxide Anion Gap BUN Creatinine Est GFR ( Amer) Est GFR (Non-Af Amer) POC Glucose (mg/dL) Random Glucose Calcium Phosphorus Magnesium Total Bilirubin AST ALT Alkaline Phosphatase Total Protein Albumin Globulin Albumin/Globulin Ratio Triglycerides 67 Cholesterol 177 LDL Cholesterol Direct 55 HDL Cholesterol 99 H Digoxin < 0.4 L Alcohol, Quantitative < 10 07/31/17 21:34 Sodium Potassium Chloride Carbon Dioxide Anion Gap BUN Creatinine Est GFR ( Amer) Est GFR (Non-Af Amer) POC Glucose (mg/dL) 147 H Random Glucose Calcium Phosphorus Magnesium Total Bilirubin AST ALT Alkaline Phosphatase Total Protein Albumin Globulin Albumin/Globulin Ratio Triglycerides Cholesterol LDL Cholesterol Direct HDL Cholesterol Digoxin Alcohol, Quantitative Assessment & Plan - Assessment and Plan (Free Text) Assessment: 67F with pmh of Celiac disease, C. diff, CHF, CAD (with stents), HTN, DM, and asthma presents to the ED with diarrhea. GI team was consulted for chronic diarrhea and weight loss. Acute on Chronic Diarrhea Celiac disease Hx of C. Diff colitis CAD DM - recommend adherence to gluten- free diet - Liquid diet as tolerated - F/u Stool electrolytes - F/u Stool culture, ova/ parasites, Giardia - F/u C. diff Ag & toxin - Replete electrolytes as needed - Follow up blood and urine culture - Continue protonix - Antiemetics for nausea Pt was seen and plan was reviewed and discussed in detail with Dr Adam. <Todd Adam - Last Filed: 08/01/17 16:17> Meds - Medications Medications: Current Medications Atorvastatin Calcium (Lipitor) 80 mg PO DAILY [facility] Last Admin: 08/01/17 10:44 Dose: 80 mg Clopidogrel Bisulfate (Plavix) 75 mg PO DAILY [facility] Last Admin: 08/01/17 10:44 Dose: 75 mg Digoxin (Lanoxin) 0.125 mg PO 1400 [facility] Duloxetine HCl (Cymbalta) 20 mg PO DAILY [facility] Last Admin: 08/01/17 10:43 Dose: 20 mg Heparin Sodium (Porcine) (Heparin) 5,000 units SC Q12 [facility] PRN Reason: Protocol Last Admin: 08/01/17 10:43 Dose: 5,000 units Insulin Human Regular (Humulin R Low) 0 units SC ACHS [facility] PRN Reason: Protocol Last Admin: 08/01/17 12:50 Dose: Not Given Memantine (Namenda) 5 mg PO DAILY [facility] Last Admin: 08/01/17 10:44 Dose: 5 mg Mirtazapine (Remeron) 15 mg PO HS PRN PRN Reason: Insomnia Last Admin: 07/31/17 22:40 Dose: 15 mg Ondansetron HCl (Zofran Inj) 4 mg IVP Q4H PRN PRN Reason: Nausea/Vomiting Pantoprazole Sodium (Protonix Inj) 40 mg IVP Q12 [facility] Last Admin: 08/01/17 10:44 Dose: 40 mg Propranolol HCl (Inderal) 40 mg PO DAILY [facility] Last Admin: 08/01/17 10:44 Dose: 40 mg Thiamine HCl (Vitamin B1 Tab) 100 mg PO Q8H [facility] Last Admin: 08/01/17 11:58 Dose: 100 mg Results - Vital Signs Recent Vital Signs: Last Vital Signs Temp 98.3 F 08/01/17 11:59 Pulse 74 08/01/17 11:59 Resp 18 08/01/17 11:59 BP 114/78 08/01/17 11:59 Pulse Ox 100 08/01/17 06:00 - Labs Result Diagrams: 08/01/17 05:20 08/01/17 05:20 Labs: Laboratory Results - last 24 hr 07/31/17 07/31/17 07/31/17 17:24 20:55 20:55 WBC RBC Hgb Hct MCV MCH MCHC RDW Plt Count MPV Gran % Lymph % (Auto) [place] % (Auto) Eos % (Auto) Baso % (Auto) Gran # Lymph # [place] # Eos # Baso # Sodium 137 Potassium 3.4 L Chloride 97 L Carbon Dioxide 31 Anion Gap 12 BUN 10 Creatinine 0.9 Est GFR ( Amer) > 60 Est GFR (Non-Af Amer) > 60 POC Glucose (mg/dL) 128 H Random Glucose 154 H Hemoglobin A1c Calcium 7.9 L Phosphorus Magnesium Total Bilirubin 0.5 AST 68 H ALT 27 Alkaline Phosphatase 66 Total Protein 6.8 Albumin 3.7 Globulin 3.2 Albumin/Globulin Ratio 1.2 Triglycerides Cholesterol LDL Cholesterol Direct HDL Cholesterol Digoxin Alcohol, Quantitative < 10 07/31/17 07/31/1718 20:55 20:55 20:55 WBC RBC Hgb Hct MCV MCH MCHC RDW Plt Count MPV Gran % Lymph % (Auto) [place] % (Auto) Eos % (Auto) Baso % (Auto) Gran # Lymph # [place] # Eos # Baso # Sodium Potassium Chloride Carbon Dioxide Anion Gap BUN Creatinine Est GFR ( Amer) Est GFR (Non-Af Amer) POC Glucose (mg/dL) Random Glucose Hemoglobin A1c 5.6 Calcium Phosphorus Magnesium Total Bilirubin AST ALT Alkaline Phosphatase Total Protein Albumin Globulin Albumin/Globulin Ratio Triglycerides 67 Cholesterol 177 LDL Cholesterol Direct 55 HDL Cholesterol 99 H Digoxin < 0.4 L Alcohol, Quantitative 07/31/17 08/01/17 08/01/17 21:34 05:20 05:20 WBC 3.4 L D RBC 2.77 L Hgb 9.6 L D Hct 28.1 L MCV 101.4 MCH 34.7 MCHC 34.2 RDW 16.8 H Plt Count 84 L MPV 9.1 Gran % 59.4 Lymph % (Auto) 30.1 [place] % (Auto) 9.3 H Eos % (Auto) 0.9 L Baso % (Auto) 0.3 Gran # 1.99 Lymph # 1.0 L [place] # 0.3 Eos # 0.0 Baso # 0.01 Sodium 137 Potassium 3.2 L Chloride 102 Carbon Dioxide 30 Anion Gap 8 L BUN 8 Creatinine 0.9 Est GFR ( Amer) > 60 Est GFR (Non-Af Amer) > 60 POC Glucose (mg/dL) 147 H Random Glucose 123 H Hemoglobin A1c Calcium 7.7 L Phosphorus 2.5 Magnesium 1.8 Total Bilirubin 0.4 AST 58 H ALT 28 Alkaline Phosphatase 59 Total Protein 5.8 Albumin 3.0 Globulin 2.8 Albumin/Globulin Ratio 1.1 Triglycerides Cholesterol LDL Cholesterol Direct HDL Cholesterol Digoxin Alcohol, Quantitative 08/01/17 08/01/17 07:47 11:47 WBC RBC Hgb Hct MCV MCH MCHC RDW Plt Count MPV Gran % Lymph % (Auto) [place] % (Auto) Eos % (Auto) Baso % (Auto) Gran # Lymph # [place] # Eos # Baso # Sodium Potassium Chloride Carbon Dioxide Anion Gap BUN Creatinine Est GFR ( Amer) Est GFR (Non-Af Amer) POC Glucose (mg/dL) 117 H 104 Random Glucose Hemoglobin A1c Calcium Phosphorus Magnesium Total Bilirubin AST ALT Alkaline Phosphatase Total Protein Albumin Globulin Albumin/Globulin Ratio Triglycerides Cholesterol LDL Cholesterol Direct HDL Cholesterol Digoxin Alcohol, Quantitative Attending/Attestation - Attestation I have personally seen and examined this patient.: Yes I have fully participated in the care of the patient.: Yes I have reviewed all pertinent clinical information: Yes Notes (Text): 08/01/17 16:15 67 year old female with h/o C. diff, CHF, CAD s/p stents, HTN, DM, GI surgery (? bypass) and asthma admitted with diarrhea. 1. Chronic diarrhea 2. History of clostridium difficile Plan: -check stool for culture, c diff, O&P -recommend a gluten free diet for possible, although not confirmed celiac disease -recommend supportive measures, IV hydration, electrolyte replacement -if stool positive for C. diff, would recommend course of oral vanco -await stool studies
[2017-08-01 06:25] LABS: BASO # 0.01 K/mm3 (0.0-2.0); BASO % 0.3 % (0.0-3.0); EOS % 0.9 % (1.5-5.0); GRAN # 1.99 (1.4-6.5); GRAN % 59.4 % (50.0-68.0); LYMPH % 30.1 % (22.0-35.0); MEAN CELL VOLUME 101.4 fl (80.0-105.0); MEAN CORPUSCULAR HEMOGLOBIN 34.7 pg (25.0-35.0); MEAN CORPUSCULAR HGB CONC 34.2 g/dl (31.0-37.0); MEAN PLATELET VOLUME 9.1 fl (7.0-11.0); MONO # 0.3 (0.1-0.6); MONO % 9.3 % (1.0-6.0); RBC 2.77 10^6/uL (3.5-6.1); RED CELL DISTRIBUTION WIDTH 16.8 % (11.5-14.5); WHITE BLOOD COUNT 3.4 10^3/ul (4.5-11.0)
[2017-08-01 06:35] VITALS: O2SAT 100
[2017-08-01 06:58] LABS: HEMOGLOBIN 9.6 g/dL (12.0-16.0)
[2017-08-01 07:23] LABS: ALB/GLOB RATIO 1.1 (1.1-1.8); ALT/SGPT 28 U/L (7-56); AST/SGOT 58 U/L (14-36); BLOOD UREA NITROGEN 8 mg/dL (7-21); CALCIUM 7.7 mg/dL (8.4-10.5); GFR AFRICAN-AMERICAN > 60; GFR NON-AFRICAN AMERICAN > 60; MAGNESIUM 1.8 mg/dL (1.7-2.2)
[2017-08-01] MEDS ORDERED: Potassium Chloride 20 mEq ER Tab PO STA (07:42)
[2017-08-01] MEDS: Insulin Reg-LOW-Coverage SC SCH ×4 (08:11→22:00)
--- NOTE | 2017-08-01 12:44 | CP.PCM.PN ---
<Patricia Hayden - Last Filed: 08/01/17 15:17> Subjective - Date & Time of Evaluation Date of Evaluation: 08/01/17 Time of Evaluation: 12:44 - Subjective Subjective: Patricia Hayden, PGY1, Medicine Progress Note for Dr Zuniga: Pt seen and examined at bedside. As per nursing staff, pt disoriented at times, refusing IV medications and does not provide stool samples. Pt denies nausea, vomiting, fever, chills, abdominal pain. Reports 2-4 watery nonbloody diarrhea over past 24 hours. tolerating CLD well. Objective - Vital Signs/Intake and Output Vital Signs (last 24 hours): Temp Pulse Resp BP Pulse Ox 98.3 F 74 18 114/78 100 08/01/17 11:59 08/01/17 11:59 08/01/17 11:59 08/01/17 11:59 08/01/17 06:00 Intake and Output: 08/01/17 08/01/17 06:59 18:59 Intake Total 915 Output Total 200 Balance 715 - Medications Medications: Current Medications Atorvastatin Calcium (Lipitor) 80 mg PO DAILY [facility] Last Admin: 08/01/17 10:44 Dose: 80 mg Clopidogrel Bisulfate (Plavix) 75 mg PO DAILY [facility] Last Admin: 08/01/17 10:44 Dose: 75 mg Digoxin (Lanoxin) 0.125 mg PO 1400 [facility] Duloxetine HCl (Cymbalta) 20 mg PO DAILY [facility] Last Admin: 08/01/17 10:43 Dose: 20 mg Heparin Sodium (Porcine) (Heparin) 5,000 units SC Q12 [facility] PRN Reason: Protocol Last Admin: 08/01/17 10:43 Dose: 5,000 units Insulin Human Regular (Humulin R Low) 0 units SC ACHS [facility] PRN Reason: Protocol Last Admin: 08/01/17 08:11 Dose: Not Given Memantine (Namenda) 5 mg PO DAILY [facility] Last Admin: 08/01/17 10:44 Dose: 5 mg Mirtazapine (Remeron) 15 mg PO HS PRN PRN Reason: Insomnia Last Admin: 07/31/17 22:40 Dose: 15 mg Ondansetron HCl (Zofran Inj) 4 mg IVP Q4H PRN PRN Reason: Nausea/Vomiting Pantoprazole Sodium (Protonix Inj) 40 mg IVP Q12 [facility] Last Admin: 08/01/17 10:44 Dose: 40 mg Propranolol HCl (Inderal) 40 mg PO DAILY [facility] Last Admin: 08/01/17 10:44 Dose: 40 mg Thiamine HCl (Vitamin B1 Tab) 100 mg PO Q8H [facility] Last Admin: 08/01/17 11:58 Dose: 100 mg - Labs Labs: 08/01/17 05:20 08/01/17 05:20 PT 11.9 SECONDS (9.4-12.5) 07/31/17 06:37 INR 1.03 (0.93-1.08) 07/31/17 06:37 APTT 25.4 Seconds (25.1-36.5) 07/31/17 06:37 - Constitutional Appears: Non-toxic, No Acute Distress, Older Than Stated Age - Head Exam Head Exam: ATRAUMATIC, NORMOCEPHALIC - Eye Exam Eye Exam: EOMI, PERRL. absent: Conjunctival injection, Scleral icterus Pupil Exam: NORMAL ACCOMODATION, PERRL - ENT Exam ENT Exam: Mucous Membranes Moist - Neck Exam Neck Exam: Full ROM - Respiratory Exam Respiratory Exam: Clear to Ausculation Bilateral. absent: Accessory Muscle Use , Chest Wall Tenderness, Rhonchi, Wheezes, Respiratory Distress - Cardiovascular Exam Cardiovascular Exam: RRR, +S1, +S2. absent: Murmur - GI/Abdominal Exam GI & Abdominal Exam: Soft, Normal Bowel Sounds. absent: Distended, Firm, Mass, Organomegaly, Rebound - Extremities Exam Extremities Exam: Full ROM, Normal Inspection. absent: Calf Tenderness, Pedal Edema - Back Exam Back Exam: NORMAL INSPECTION - Neurological Exam Neurological Exam: Alert, Awake, Oriented x3 Neuro motor strength exam: Left Upper Extremity: 5, Right Upper Extremity: 5, Left Lower Extremity: 5, Right Lower Extremity: 5 - Psychiatric Exam Psychiatric exam: Normal Affect, Normal Mood - Skin Skin Exam: Dry, Normal Color, Warm Assessment and Plan - Assessment and Plan (Free Text) Assessment: 66 year old female with PMH noncompliance, CHF (EF 34%), celiac disease ( recently diagnosed), HTN, asthma, DM, CAD x 2 stents, gastric bypass (10 years ago), presents for chronic watery diarrhea, found to be severely hypokalemic on admission. Potassium improved after replacement. Pt reports few watery diarrheal episodes. However, pt refusing tests, stool culture. Psych consulted. Started on gluten free diet: Chronic diarrhea: - likely 2/2 celiac sprue vs pancreatic insufficiency vs IBS vs giardiasis vs IBS vs ova/parasitic vs colon cancer vs microscopic colitis vs malabsorption - Cont to monitor frequency/episodes of diarrhea. Communicated with nursing staff. - prn zofran - Advanced to gluten free, heart healthy, antidiabetic diet. - Chronic diarrhea workup ordered. F/u results - GI consulted. F/u recs. Hypokalemia/hypomagnesemia: 2/2 likely persistent diarrhea vs medication induced (less likely) - EKG shows 63 NSR. prolonged Qtc 497 ms. Repeat EKG yesterday evening showed NSR prolonged QTc 517 ms. - hypomagnesemia causing further persistence of hypokalemia. -Intially, given 80 meq PO on top of 40 meq IV, adding KCl 40 meq/L to IVF and replaced Mg with Mag sulfate 2 g IV -K3.2 today, replaced with 40 meq PO x2. refused K riders IV. -Cont to monitor Hx of CAD with stents/CHF/HLD: - home med ASA 81, Plavix 75 mg, Inderal, statin, digoxin - Trig 67, chol 177, LDL 55, HDL 99 Hx of DM: - ISS low coverage. - Hgb A1C 5.6 - Monitor Psych: - C/w remeron, memantine - hold seroquel in setting of prolonged QTc PPX: Protonix, heparin SQ Discussed with Dr Zuniga. Patricia Hayden, PGY1 <Diana Zuniga - Last Filed: 08/02/17 07:46> Objective - Vital Signs/Intake and Output Vital Signs (last 24 hours): Temp Pulse Resp BP Pulse Ox 98.6 F 72 20 128/77 100 08/02/17 06:00 08/02/17 06:00 08/02/17 06:00 08/02/17 06:00 08/02/17 06:00 Intake and Output: 08/02/17 08/02/17 06:59 18:59 Intake Total 360 Output Total 300 Balance 60 - Medications Medications: Current Medications Atorvastatin Calcium (Lipitor) 80 mg PO DAILY [facility] Last Admin: 08/01/17 10:44 Dose: 80 mg Clopidogrel Bisulfate (Plavix) 75 mg PO DAILY [facility] Last Admin: 08/01/17 10:44 Dose: 75 mg Digoxin (Lanoxin) 0.125 mg PO 1400 [facility] Last Admin: 08/01/17 16:18 Dose: 0.125 mg Duloxetine HCl (Cymbalta) 20 mg PO DAILY [facility] Last Admin: 08/01/17 10:43 Dose: 20 mg Heparin Sodium (Porcine) (Heparin) 5,000 units SC Q12 [facility] PRN Reason: Protocol Last Admin: 08/01/17 22:00 Dose: Not Given Insulin Human Regular (Humulin R Low) 0 units SC ACHS [facility] PRN Reason: Protocol Last Admin: 08/01/17 22:00 Dose: Not Given Memantine (Namenda) 5 mg PO DAILY [facility] Last Admin: 08/01/17 10:44 Dose: 5 mg Mirtazapine (Remeron) 15 mg PO HS PRN PRN Reason: Insomnia Last Admin: 07/31/17 22:40 Dose: 15 mg Ondansetron HCl (Zofran Inj) 4 mg IVP Q4H PRN PRN Reason: Nausea/Vomiting Pantoprazole Sodium (Protonix Inj) 40 mg IVP Q12 [facility] Last Admin: 08/01/17 22:00 Dose: Not Given Propranolol HCl (Inderal) 40 mg PO DAILY [facility] Last Admin: 08/01/17 10:44 Dose: 40 mg Thiamine HCl (Vitamin B1 Tab) 100 mg PO Q8H [facility] Last Admin: 08/02/17 06:12 Dose: Not Given - Labs Labs: 08/02/17 06:45 08/01/17 05:20 PT 11.9 SECONDS (9.4-12.5) 07/31/17 06:37 INR 1.03 (0.93-1.08) 07/31/17 06:37 APTT 25.4 Seconds (25.1-36.5) 07/31/17 06:37 Attending/Attestation - Attestation I have personally seen and examined this patient.: Yes I have fully participated in the care of the patient.: Yes I have reviewed all pertinent clinical information, including history, physical exam and plan: Yes Notes (Text): 08/02/17 07:44 Patient was seen and examined with medical secretary teacher.Agreed with assessment and plan. 67 yrs old Female with PMH of Celiac disease, C. diff, CHF with systolic dysfunction, CAD (with stents), HTN, DM, and cognitive disorders presents to the ED with diarrhea, 4-5 stools per day ongoing for last 3-4 months , getting worse recently.Patient was found to have severe Hypokalemia and Hypomagnasemia. .Patient is non compliance with gluten free diet, discuss with her in detail. Hypokalemia is better.We will advance diet. We will also get Psychiatric consult as patient is having hallucinations.
[2017-08-01] MEDS: Digoxin 125 mcg (0.125 mg) Tab PO SCH (16:18)
[2017-08-02 01:52] LABS: PH,URINE 6.5 (4.7-8.0); URINE BILIRUBIN MODERATE (NEGATIVE); URINE BLOOD NEGATIVE (NEGATIVE); URINE GLUCOSE (UA) NEGATIVE (NEGATIVE); URINE LEUKOCYTE ESTERASE TRACE Leu/uL (NEGATIVE); URINE NITRATE NEGATIVE (NEGATIVE); URINE PROTEIN 30 mg/dL (<30 mg/dL); URINE UROBILINOGEN 0.2 E.U./dL (<1 E.U./dL)
[2017-08-02 02:17] LABS: URINE APPEARANCE SL CLOUDY (CLEAR); URINE COLOR DARK YELLOW (YELLOW)
[2017-08-02 02:20] LABS: URINE RBC 0 - 2 /hpf (0-2)
[2017-08-02 02:21] LABS: URINE BACTERIA RARE (NEG); URINE EPITHELIAL CELLS 0 - 2 /hpf (0-5); URINE HYALINE CAST 0 - 2 /hpf
[2017-08-02 04:45] VITALS: RESP 20
--- NOTE | 2017-08-02 05:15 | CP.PCM.PN ---
<Madyson Woodward - Last Filed: 08/02/17 10:33> Subjective - Date & Time of Evaluation Date of Evaluation: 08/02/17 Time of Evaluation: 05:13 - Subjective Subjective: Gastroenterology Fellow/PGY5 Progress Note Patient resting comfortably. Nursing denies bowel movements overnight with two episodes of diarrhea endorsed by patient yesterday morning. A 12-point review of systems negative except for as above. Objective - Vital Signs/Intake and Output Vital Signs (last 24 hours): Temp Pulse Resp BP Pulse Ox 98.4 F 80 20 136/76 100 08/02/17 00:01 08/02/17 02:00 08/02/17 00:01 08/02/17 00:01 08/02/17 00:01 Intake and Output: 08/01/17 08/02/17 18:59 06:59 Intake Total 240 Balance 240 - Medications Medications: Current Medications Atorvastatin Calcium (Lipitor) 80 mg PO DAILY [facility] Last Admin: 08/01/17 10:44 Dose: 80 mg Clopidogrel Bisulfate (Plavix) 75 mg PO DAILY [facility] Last Admin: 08/01/17 10:44 Dose: 75 mg Digoxin (Lanoxin) 0.125 mg PO 1400 [facility] Last Admin: 08/01/17 16:18 Dose: 0.125 mg Duloxetine HCl (Cymbalta) 20 mg PO DAILY [facility] Last Admin: 08/01/17 10:43 Dose: 20 mg Heparin Sodium (Porcine) (Heparin) 5,000 units SC Q12 JOANNE PRN Reason: Protocol Last Admin: 08/01/17 10:43 Dose: 5,000 units Insulin Human Regular (Humulin R Low) 0 units SC ACHS [facility] PRN Reason: Protocol Last Admin: 08/01/17 16:54 Dose: Not Given Memantine (Namenda) 5 mg PO DAILY [facility] Last Admin: 08/01/17 10:44 Dose: 5 mg Mirtazapine (Remeron) 15 mg PO HS PRN PRN Reason: Insomnia Last Admin: 07/31/17 22:40 Dose: 15 mg Ondansetron HCl (Zofran Inj) 4 mg IVP Q4H PRN PRN Reason: Nausea/Vomiting Pantoprazole Sodium (Protonix Inj) 40 mg IVP Q12 [facility] Last Admin: 08/01/17 10:44 Dose: 40 mg Propranolol HCl (Inderal) 40 mg PO DAILY [facility] Last Admin: 08/01/17 10:44 Dose: 40 mg Thiamine HCl (Vitamin B1 Tab) 100 mg PO Q8H [facility] Last Admin: 08/01/17 11:58 Dose: 100 mg - Labs Labs: 08/01/17 05:20 08/01/17 05:20 PT 11.9 SECONDS (9.4-12.5) 07/31/17 06:37 INR 1.03 (0.93-1.08) 07/31/17 06:37 APTT 25.4 Seconds (25.1-36.5) 07/31/17 06:37 - Constitutional Appears: Non-toxic, No Acute Distress - Head Exam Head Exam: ATRAUMATIC, NORMOCEPHALIC - Eye Exam Eye Exam: EOMI, PERRL. absent: Scleral icterus Pupil Exam: PERRL. absent: Miosis, Mydriatic - ENT Exam ENT Exam: Mucous Membranes Moist, Normal Oropharynx - Neck Exam Neck Exam: Full ROM, Normal Inspection - Respiratory Exam Respiratory Exam: Clear to Ausculation Bilateral. absent: Rales, Rhonchi, Wheezes - Cardiovascular Exam Cardiovascular Exam: RRR, +S1, +S2. absent: Gallop, Rubs - GI/Abdominal Exam GI & Abdominal Exam: Soft, Normal Bowel Sounds. absent: Distended, Firm, Guarding, Rigid, Tenderness, Organomegaly, Rebound - Extremities Exam Extremities Exam: Normal Inspection. absent: Pedal Edema - Neurological Exam Neurological Exam: Alert, Awake - Psychiatric Exam Psychiatric exam: Normal Affect, Normal Mood - Skin Skin Exam: Dry, Intact, Normal Color, Warm Assessment and Plan - Assessment and Plan (Free Text) Assessment: 66 year old female with history of sCHF EF 34% (11/2016), CAD s/p stent placement , Hypertension, and Diabetes presenting with worsening of diarrhea. Active treatment of chronic diarrhea in setting of recent discharge 04/2017 for diarrhea 2/2 Cdiff antigen positive and newly diagnosed celiac disease on serologic testing. Prior EGD 05/08/17 showed Gastritis, gastric bypass, and duodenopathy, no specimens collected. 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 on gluten free diet <Kia Coburn MD - Last Filed: 08/02/17 12:21> Objective - Vital Signs/Intake and Output Vital Signs (last 24 hours): Temp Pulse Resp BP Pulse Ox 97.4 F L 68 20 122/73 100 08/02/17 12:00 08/02/17 12:00 08/02/17 12:00 08/02/17 12:00 08/02/17 06:00 Intake and Output: 08/02/17 08/02/17 06:59 18:59 Intake Total 360 Output Total 300 Balance 60 - Medications Medications: Current Medications Atorvastatin Calcium (Lipitor) 80 mg PO DAILY [facility] Last Admin: 08/02/17 10:25 Dose: 80 mg Clopidogrel Bisulfate (Plavix) 75 mg PO DAILY [facility] Last Admin: 08/02/17 10:24 Dose: 75 mg Digoxin (Lanoxin) 0.125 mg PO 1400 [facility] Last Admin: 08/01/17 16:18 Dose: 0.125 mg Duloxetine HCl (Cymbalta) 20 mg PO DAILY [facility] Last Admin: 08/02/17 10:24 Dose: 20 mg Heparin Sodium (Porcine) (Heparin) 5,000 units SC Q12 JOANNE PRN Reason: Protocol Last Admin: 08/02/17 10:24 Dose: 5,000 units Insulin Human Regular (Humulin R Low) 0 units SC ACHS [facility] PRN Reason: Protocol Last Admin: 08/02/17 12:05 Dose: Not Given Memantine (Namenda) 5 mg PO DAILY [facility] Last Admin: 08/02/17 10:24 Dose: 5 mg Mirtazapine (Remeron) 15 mg PO HS PRN PRN Reason: Insomnia Last Admin: 07/31/17 22:40 Dose: 15 mg Ondansetron HCl (Zofran Inj) 4 mg IVP Q4H PRN PRN Reason: Nausea/Vomiting Pantoprazole Sodium (Protonix Inj) 40 mg IVP Q12 [facility] Last Admin: 08/02/17 10:24 Dose: 40 mg Propranolol HCl (Inderal) 40 mg PO DAILY [facility] Last Admin: 08/02/17 10:24 Dose: 40 mg Thiamine HCl (Vitamin B1 Tab) 100 mg PO Q8H JOANNE Last Admin: 08/02/17 06:12 Dose: Not Given - Labs Labs: 08/02/17 06:45 08/02/17 06:45 PT 11.9 SECONDS (9.4-12.5) 07/31/17 06:37 INR 1.03 (0.93-1.08) 07/31/17 06:37 APTT 25.4 Seconds (25.1-36.5) 07/31/17 06:37 Attending/Attestation - Attestation I have personally seen and examined this patient.: Yes I have fully participated in the care of the patient.: Yes I have reviewed all pertinent clinical information, including history, physical exam and plan: Yes Notes (Text): 08/02/17 12:11 Patient seen and examined with GI fellow on rounds this am. This is a 66 year old female with history of sCHF EF 34% (11/2016), CAD s/p stent placement, Hypertension, and Diabetes presenting with worsening of diarrhea in setting of recent discharge in OCt with C diff antigen positive and newly diagnosed celiac disease on serologic testing. Prior EGD 05/08/17 showed Gastritis, gastric bypass, and duodenopathy, no specimens collected. Has not had further loose stools to give specimen. Non compliant with GFD. Supportive care. Gluten free diet reinforced and to follow with turning machine set up operator. Thank you for letting us participate in the care of your patient. Will schedule for outpatient colonoscopy with Dr Adam
[2017-08-02 07:20] LABS: BASO # 0.01 K/mm3 (0.0-2.0); BASO % 0.3 % (0.0-3.0); GRAN # 1.62 (1.4-6.5); GRAN % 52.6 % (50.0-68.0); HEMOGLOBIN 9.1 g/dL (12.0-16.0); LYMPH # 1.1 (1.2-3.4); MEAN CELL VOLUME 101.2 fl (80.0-105.0); MEAN CORPUSCULAR HGB CONC 34.6 g/dl (31.0-37.0); MONO # 0.3 (0.1-0.6); MONO % 10.1 % (1.0-6.0); RBC 2.6 10^6/uL (3.5-6.1); RED CELL DISTRIBUTION WIDTH 17.3 % (11.5-14.5); WHITE BLOOD COUNT 3.1 10^3/ul (4.5-11.0)
[2017-08-02] MEDS: Insulin Reg-LOW-Coverage SC SCH ×2 (07:52→12:05)
[2017-08-02 08:01] LABS: ALB/GLOB RATIO 1.1 (1.1-1.8); ALBUMIN 2.8 g/dL (3.0-4.8); ALT/SGPT 32 U/L (7-56); AST/SGOT 45 U/L (14-36); BLOOD UREA NITROGEN 8 mg/dL (7-21); CALCIUM 8.4 mg/dL (8.4-10.5); GFR AFRICAN-AMERICAN > 60; GFR NON-AFRICAN AMERICAN 55; MAGNESIUM 1.8 mg/dL (1.7-2.2)
[2017-08-02 12:10] VITALS: BP 122/73; PULSE 68; TEMP 97.4
[2017-08-02 14:02] LABS: IRON 37 ug/dL (45-180)
[2017-08-02 14:18] LABS: TOTAL IRON BINDING CAPACITY 203 ug/dL (265-497)
[2017-08-02 14:24] LABS: % IRON SATURATION 18 % (20-55)
--- NOTE | 2017-08-02 14:47 | CP.PCM.DIS ---
Provider - Provider Date of Admission: 07/31/17 09:35 Attending physician: Diana Zuniga MD Primary care physician: Shagufta Barreto MD Consults: JAYDON Aguirre Time Spent in preparation of Discharge (in minutes): 35 Diagnosis - Discharge Diagnosis (1) Chronic diarrhea Status: Acute (2) Celiac disease/sprue Status: Acute Hospital Course - Lab Results Lab Results: Most Recent Lab Values WBC 3.1 10^3/ul (4.5-11.0) L 08/02/17 06:45 RBC 2.60 10^6/uL (3.5-6.1) L 08/02/17 06:45 Hgb 9.1 g/dL (12.0-16.0) L 08/02/17 06:45 Hct 26.3 % (36.0-48.0) L 08/02/17 06:45 MCV 101.2 fl (80.0-105.0) 08/02/17 06:45 MCH 35.0 pg (25.0-35.0) 08/02/17 06:45 MCHC 34.6 g/dl (31.0-37.0) 08/02/17 06:45 RDW 17.3 % (11.5-14.5) H 08/02/17 06:45 Plt Count 118 10^3/uL (120.0-450.0) L 08/02/17 06:45 MPV 9.0 fl (7.0-11.0) 08/02/17 06:45 Gran % 52.6 % (50.0-68.0) 08/02/17 06:45 Lymph % (Auto) 36.0 % (22.0-35.0) H 08/02/17 06:45 [place] % (Auto) 10.1 % (1.0-6.0) H 08/02/17 06:45 Eos % (Auto) 1.0 % (1.5-5.0) L 08/02/17 06:45 Baso % (Auto) 0.3 % (0.0-3.0) 08/02/17 06:45 Gran # 1.62 (1.4-6.5) 08/02/17 06:45 Lymph # 1.1 (1.2-3.4) L 08/02/17 06:45 [place] # 0.3 (0.1-0.6) 08/02/17 06:45 Eos # 0.0 (0.0-0.7) 08/02/17 06:45 Baso # 0.01 K/mm3 (0.0-2.0) 08/02/17 06:45 PT 11.9 SECONDS (9.4-12.5) 07/31/17 06:37 INR 1.03 (0.93-1.08) 07/31/17 06:37 APTT 25.4 Seconds (25.1-36.5) 07/31/17 06:37 Sodium 139 mmol/L (132-148) 08/02/17 06:45 Potassium 3.0 mmol/L (3.6-5.0) L 08/02/17 06:45 Chloride 104 mmol/L (98-107) 08/02/17 06:45 Carbon Dioxide 30 mmol/L (21-33) 08/02/17 06:45 Anion Gap 8 (10-20) L 08/02/17 06:45 BUN 8 mg/dL (7-21) 08/02/17 06:45 Creatinine 1.0 mg/dl (0.7-1.2) 08/02/17 06:45 Est GFR ( Amer) > 60 08/02/17 06:45 Est GFR (Non-Af Amer) 55 08/02/17 06:45 POC Glucose (mg/dL) 60 mg/dL (65-110) L 08/02/17 07:28 Random Glucose 85 mg/dL (70-110) 08/02/17 06:45 Hemoglobin A1c 5.6 % (4.2-6.5) 07/31/17 20:55 Calcium 8.4 mg/dL (8.4-10.5) 08/02/17 06:45 Phosphorus 2.6 mg/dL (2.5-4.5) 08/02/17 06:45 Magnesium 1.8 mg/dL (1.7-2.2) 08/02/17 06:45 Iron 37 ug/dL (45-180) L 08/02/17 13:20 TIBC 203 ug/dL (265-497) L 08/02/17 13:20 % Saturation 18 % (20-55) L 08/02/17 13:20 Total Bilirubin 0.4 mg/dL (0.2-1.3) 08/02/17 06:45 AST 45 U/L (14-36) H D 08/02/17 06:45 ALT 32 U/L (7-56) 08/02/17 06:45 Alkaline Phosphatase 51 U/L (38-126) 08/02/17 06:45 Lactate Dehydrogenase 714 U/L (333-699) H 07/31/17 06:37 Total Creatine Kinase 102 U/L (35-230) 07/31/17 06:37 Troponin I < 0.01 ng/mL 07/31/17 06:37 Total Protein 5.3 g/dL (5.8-8.3) L 08/02/17 06:45 Albumin 2.8 g/dL (3.0-4.8) L 08/02/17 06:45 Globulin 2.5 gm/dL 08/02/17 06:45 Albumin/Globulin Ratio 1.1 (1.1-1.8) 08/02/17 06:45 Triglycerides 67 mg/dL (35-160) 07/31/17 20:55 Cholesterol 177 mg/dL (130-200) 07/31/17 20:55 LDL Cholesterol Direct 55 mg/dL (0-129) 07/31/17 20:55 HDL Cholesterol 99 mg/dL (29-60) H 07/31/17 20:55 Amylase 73 U/L (35-125) 07/31/17 06:37 Lipase 217 U/L (23-300) 07/31/17 06:37 Urine Color Dark yellow (YELLOW) 08/01/17 20:28 Urine Appearance Sl cloudy (CLEAR) 08/01/17 20:28 Urine pH 6.5 (4.7-8.0) 08/01/17 20:28 Ur Specific Menard 1.020 (1.005-1.035) 08/01/17 20:28 Urine Protein 30 mg/dL (<30 mg/dL) H 08/01/17 20:28 Urine Glucose (UA) Negative mg/dL (NEGATIVE) 08/01/17 20:28 Urine Ketones Trace mg/dL (NEGATIVE) H 08/01/17 20:28 Urine Blood Negative (NEGATIVE) 08/01/17 20:28 Urine Nitrate Negative (NEGATIVE) 08/01/17 20:28 Urine Bilirubin Moderate (NEGATIVE) H 08/01/17 20:28 Urine Urobilinogen 0.2 E.U./dL (<1 E.U./dL) 08/01/17 20:28 Ur Leukocyte Esterase Trace Elizabeth/uL (NEGATIVE) H 08/01/17 20:28 Urine RBC 0 - 2 /hpf (0-2) 08/01/17 20:28 Urine WBC 1 - 3 /hpf (0-6) 08/01/17 20:28 Ur Epithelial Cells 0 - 2 /hpf (0-5) 08/01/17 20:28 Urine Bacteria Rare (NEG) 08/01/17 20: Hyaline Casts 0 - 2 /hpf 08/01/17 20: Digoxin < 0.4 ng/mL (0.8-2.0) L 07/31/17 20:55 Alcohol, Quantitative < 10 mg/dL (0-10) 07/31/17 20:55 - Hospital Course Hospital Course: 66 year old female, with PMH CHF with EF 34% (11/2016), celiac disease ( diagnosed last admission 04/2017), hypertension, asthma, diabetes, CAD with stents, gastric bypass, presents for ongoing chronic diarrhea for past 4-6 months. Pt describes the diarrheal episodes 4-6 daily, watery brown, denies hematochezia, melena, tarry stools, tenesmus. Pt also reports decreased appetite , and unintentional weight loss over past few months (unable to quantify). Pt also complains of achy midabdominal pain, lasting few minutes at a time, occurs q6-8 hours, denies association with meals. Of note, pt was recently admitted for similar complaints in 04/2017, found to have C diff colitis and celiac disease. EGD 04/2017 showed gastritis, gastric bypass, and duodenopathy. Pt sent home on PO antibiotics, which patient states that she has not completed the course. Pt states that she has not been compliant with gluten free diet, her medications or visits with any of the doctors. Denies fever, chills, nausea , vomiting, sob, cp, urinary symptoms, back pain, neck pain, headache, dizziness , steatorrhea, or any other complaints. Denies recent antibiotic use, recent travel, unusual food consumption. No prior colonoscopy (pt failed to follow up with Dr Boyer as outpatient). In ED, pt afebrile, vital signs stable, cmp remarkable for hypokaelmia K 2.1, Mg 1.3, mildly low Phosp. Given Zofran 4 mg IV , NS with 40 MEQ KCL at 125, and morphine 2 mg IV given. Pt started on IVF, gave CLD, then slowly advanced to gluten free diet, which patient was tolerating with 2 episodes of diarrhea daily. Abdominal pain resolved with no episodes of nausea/vomiting. During the hospital course, pt had episodes of disorientations, not giving out stool samples and complying with medical care. Psych was consulted, and recommended no interventions. Her behavior is atributable to her worsening dementia. Spoke with patient's dicksonhter, who expresses concern for patient living alone. After psychotherapist social worker's discussion with pt, pt refused detention. Pt is amenable to home health aide visiting for few hours a day. Pt's daughter states that she prepares her meals and tries to give her the medications. Presciptions were printed out. Pt and family advised to follow up with PMD and Gi doctor in 1 week. Reinforced need to adhere to gluten free diet. Pt's daughter is here to take the pt home. Discharge Exam - Head Exam Head Exam: ATRAUMATIC, NORMOCEPHALIC - Eye Exam Eye Exam: EOMI, PERRL. absent: Conjunctival injection, Scleral icterus Pupil Exam: NORMAL ACCOMODATION, PERRL - ENT Exam ENT Exam: Mucous Membranes Moist - Neck Exam Neck exam: Full Rom - Respiratory Exam Respiratory Exam: Clear to PA & Lateral, NORMAL BREATHING PATTERN. absent: Accessory Muscle Use, Chest Wall Tenderness, Respiratory Distress - Cardiovascular Exam Cardiovascular Exam: RRR, +S1, +S2. absent: Tachycardia, Systolic Murmur - GI/Abdominal Exam GI & Abdominal Exam: Normal Bowel Sounds, Soft. absent: Distended, Firm, Tenderness - Extremities Exam Extremities exam: normal inspection - Neurological Exam Neurological exam: Alert, Oriented x3 - Psychiatric Exam Psychiatric exam: Normal Affect, Normal Mood - Skin Skin Exam: Dry, Normal Color, Warm Discharge Plan - Discharge Medications Prescriptions: Atorvastatin [Lipitor] 80 mg PO DAILY #30 tab Clopidogrel [Plavix] 75 mg PO DAILY #14 tab Digoxin [Lanoxin] 0.125 mg PO QAM #30 tab DULoxetine [Cymbalta] 20 mg PO DAILY #30 ecc Memantine [Namenda] 5 mg PO DAILY #30 tab Mirtazapine [Remeron] 15 mg PO HS PRN #14 tab PRN Reason: Insomnia Propranolol HCl 40 mg PO DAILY #30 tablet QUEtiapine [Seroquel] 12.5 mg PO HS #30 tab Thiamine [Vitamin B1 Tab] 100 mg PO Q8H #30 tab - Follow Up Plan Condition: STABLE Disposition: HOME/ ROUTINE Patient education suggested?: Yes Instructions: Chronic Diarrhea (DC), Abdominal Pain (ED) Additional Instructions: - Your given scripts of your home medications. - Please stick to your gluten free diet as explained by the doctors and the dietitian - Follow up with PMD in 1 week. - F/u with Dr Adam in outpatient clinic for a colonoscopy - Return to us if any concerns. Referrals: Shagufta Barreto MD [Primary Care Provider] - Todd Adam MD [Staff Provider] -
[2017-08-02] MEDS ORDERED: Potassium Chloride 20 mEq ER Tab PO SCH (15:00)
[2017-08-02] MEDS: Digoxin 125 mcg (0.125 mg) Tab PO SCH (15:14)
[2017-08-02 15:16] VITALS: PULSE 82
--- NOTE | 2017-08-02 15:52 | CARD ---
APPROVED REPORT EKG Measurement Heart [id number] <Conclusion> Normal sinus rhythm Normal ECG
[2017-08-02 17:52] LABS: FOLATE 6.2 ng/mL
--- NOTE | 2017-08-03 08:47 | CON ---
DATE: 08/02/2017 She is being seen today for a consultation. PRIMARY MEDICAL DOCTOR: Dr. Sommers PRESENTATION: The patient is a 66-year-old -[place] female seen at bedside. The patient was originally admitted on 07/31/2017 for abdominal pain and diarrhea, she has noticed with weight loss. Consultation was called for this patient due to concerns about for being non-cooperative and disoriented. The patient was seen. The records were reviewed. The patient's nursing staff was patient's behavior and the patient's past evaluation from Dr. Wilkinson from her admission on 04/2017 was reviewed as well. The patient indicates that she was admitted for diarrhea and weight loss that she has been sick on and off for 3 weeks. She has been here sometime before that and she has some depression at times. 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 She lives alone in an apartment. It is a third floor walkup. Her daughter lives a couple of blocks away with her 10-year-old granddaughter. She hates her apartment. She is not able to keep it up. It is too small. She hates her landlord, and she is finding that she is forgetful, so her apartment is really "out of control" because she really cannot take care of it. PSYCHIATRIC HISTORY: Includes a diagnosis of ADHD and depression. The patient has been for some years on Adderall and Celexa. She could not remember the name of the doctor. Then, she did tell me it was DrChoco . She indicates that she has not taken the medication in a long time. She has been hospitalized at least 2 times at [facility] in [place] and one time here at [place], also on the psychiatric haney. She was depressive and suicidal in 2008 as she recalls. She indicates that at times in her life had passive suicidal ideations. She never had any attempts at suicide and that she is disappointed where her life is. She thought her life would be different. She is concerned that she has episodes of confusion and she worries about her future. PAST MEDICAL HISTORY: The patient has CHF, hypertension, asthma, diabetes, CAD with stent, gastric bypass. She additionally has celiac disease and ongoing chronic diarrhea for the past 4 to 6 months. The patient indicates to me that when she is treated for anything, she takes the medications just until she feels better and then does not continue it. Her primary doctor gets very frustrated with this factor. She does understand that her medical conditions all need required ongoing maintenance in order her to be healthy, but she really does not seem to want to be bothered with taking care of anything above where she feels fine and then she does not bother with it anymore. SOCIAL HISTORY: The patient indicates that in terms of alcohol and drugs, she used them in her 20s. She does not use caffeine nor does she smoke cigarettes at this point in time, she stopped 10 years ago. LEGAL HISTORY: Legally, she indicates she does not have past or current legal problems. FAMILY HISTORY: Positive for depression in her mother. SOCIAL AND DEVELOPMENTAL HISTORY: Includes father dying when she was about 13 months old. She was very close to her father. Apparently, her mother told her that she as a baby had to be hospitalized when he , that she missed him so much, she ended up in the hospital. He of heart failure. She indicates that her childhood was good in terms of the fact that the she had a good mother and her mother never remarried. She did well in school. She had support from her uncle, aunt and a lot of friends and family. 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 She did go to nursing school at one point, but she was with her only child and she decided to not continue in that program. 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 Their relationship broke up early on, and he moved to [place]. He did stay involved with his daughter, but they did not stay . PHYSICAL EXAMINATION: VITAL SIGNS: Her latest vital signs include her temperature of 97.4, her pulse 68, blood pressure 122/73 and a respiratory rate of 20. MENTAL STATUS EXAMINATION: The patient is alert; however, she other than knowing that she is in the [facility] and responding to her name, she could not tell me the month, the year, the president, anything in terms of her orientation. Her speech rate and volume are within normal limits. Her behavior is pleasant and cooperative. Mood is euthymic. Affect is full. Thoughts are goal directed, at times illogical and do not make sense. She has definite problems with sequencing, timing, what happened before something else. For instance, she tells me that her apartment is in quite a bit of disarray because she is forgetful, and she is not able to keep it up and she cannot clean it up and she is having trouble cooking for herself and caring for herself and when I ask her if she is capable of living alone, she says of course, like that all make sense. So, the patient denied being suicidal or homicidal, denies the presence of hallucinations, delusions or paranoia. Her concentration and her focus are poor. She skips from one subject to next and sometimes loses the thread of her conversation. Her memory both short and intermediate teacher have deficits. Her appetite is off due to the chronic diarrhea. Her sleep pattern is disrupted as well she indicates. LABORATORY DATA: Blood culture preliminarily on 07/31/2017 indicated gram-positive cocci and in review of the nurse's notes, there have been multiple episodes of confusion. The patient is easily directed and oriented and led back to her room or wherever she might be in her room. DIAGNOSTIC IMPRESSION: Dementia. PLAN: The patient is not suicidal or homicidal. She did not appear in any imminent danger of hurting herself or others. She does have periods of confusion and looking at her recent evaluation from Dr. Wilkinson, it appears the concern is that though the patient has a psychiatric history, this does not appear to be a psychiatric issue, this appears to be dementia, which needs to be further evaluated and possibly treated, which suggest Neurology referral. We will sign off on this patient. Please call if there are further concerns. This case has been discussed with Dr. Carla Wilkinson. Livia Rosen APN
== END 2017-08-02 15:38 | disposition home or self-care (01) | DRG 392 ==
LOC: ED 05:34 → ERH 09:35 → 2RSO 20:19
PROVIDERS: ADMIT Internal Medicine; ATTEND Internal Medicine
DX: K90.0 Celiac disease (principal); E87.6 Hypokalemia; I11.0 Hypertensive heart disease with heart failure; E83.42 Hypomagnesemia; I50.20 Unspecified systolic (congestive) heart failure; F03.90 Unspecified dementia, unspecified severity, without behavioral disturbance, psychotic disturbance, mood disturbance, and anxiety; J44.9 Chronic obstructive pulmonary disease, unspecified; E11.9 Type 2 diabetes mellitus without complications; I25.10 Atherosclerotic heart disease of native coronary artery without angina pectoris; E78.5 Hyperlipidemia, unspecified; Z91.19 Patient's noncompliance with other medical treatment and regimen; Z86.19 Personal history of other infectious and parasitic diseases; Z98.84 Bariatric surgery status; Z95.5 Presence of coronary angioplasty implant and graft; Z87.891 Personal history of nicotine dependence

== ENCOUNTER 2017-08-24 12:36 | Inpatient (IN) | payer MEDICARE, OTHER ==
[2017-08-24 13:24] VITALS: BMI 20.5
[2017-08-24] MEDS ORDERED: Sodium Chloride 0.9% 1,000 ML IV SCH (13:30)
--- NOTE | 2017-08-24 13:39 | ED PDOC ---
Arrival/HPI - General Chief Complaint: GI Problem Time Seen by Provider: 08/24/17 12:42 Historian: Patient - History of Present Illness Narrative History of Present Illness (Text): 08/24/17 13:37 Patient is a 66 yo female with past medical history of cardiac disease, chronic diarrhea, presents to the Emergency Department with history of diarrhea "loose stools 6-7 times a day for the past two months". Patient states that she has noted bright red blood with bowel movements over past 1-2 weeks, and that she has been increasingly fatigued over the past week. She denies chest pain or shortness of breath. She denies abdominal pain. Denies nausea or vomiting or hematemesis. Does report loss of appetite over past several months. Time/Duration: > month Symptom Onset: Gradual Past Medical History - Past History Past History: No Previous - Infectious Disease Hx of Infectious Diseases: None - Tetanus Immunization Tetanus Immunization: Unknown - Past Medical History Past Medical History: No Previous - Cardiac Hx Cardiac Disorders: Yes Hx Congestive Heart Failure: Yes Hx Hypertension: Yes - Pulmonary Hx Respiratory Disorders: Yes Hx Asthma: Yes - Neurological Hx Neurological Disorder: No Hx Paralysis: No - HEENT Hx HEENT Disorder: Yes Other/Comment: glasses - Renal Hx Renal Disorder: No - Endocrine/Metabolic Hx Diabetes Mellitus Type 2: Yes - Hematological/Oncological Hx Blood Transfusions: No - Integumentary Hx Dermatological Disorder: No - Musculoskeletal/Rheumatological Hx Musculoskeletal Disorders: Yes - Gastrointestinal Hx Gastrointestinal Disorders: No - Genitourinary/Gynecological Hx Genitourinary Disorders: No - Psychiatric Hx Psychophysiologic Disorder: No Hx Emotional Abuse: No Hx Physical Abuse: No Hx Substance Use: No - Past Surgical History Past Surgical History: No Previous - Surgical History Hx Cardiac Catheterization: Yes Hx Coronary Stent: Yes - Anesthesia Hx Anesthesia Reactions: No Hx Malignant Hyperthermia: No - Suicidal Assessment Feels Threatened In Home Enviroment: No Family/Social History Family/Social History: Unknown Family HX Smoking Status: Former Smoker Hx Alcohol Use: Yes (SOCIALLY) Hx Substance Use: No Hx Substance Use Treatment: No Allergies/Home Meds Allergies/Adverse Reactions: Allergies No Known Allergies Allergy (Verified 04/12/17 15:36) Review of Systems - Review of Systems Constitutional: Fatigue, Weight Change. absent: Fevers, Night Sweats Eyes: absent: Vision Changes ENT: absent: Hearing Changes Respiratory: absent: SOB Cardiovascular: absent: Chest Pain Gastrointestinal: Stool Changes, Diarrhea, Appetite Changes, Hematochezia. absent: Abdominal Pain, Constipation, Nausea, Vomiting, Hematemesis, Anorexia, Food Intolerance Genitourinary Female: absent: Dysuria, Frequency, Hematuria, Urine Output Changes, Vaginal Bleeding Musculoskeletal: absent: Back Pain, Neck Pain Skin: absent: Rash, Pruritis Neurological: absent: Headache, Dizziness, Focal Weakness Endocrine: absent: Polyuria, Polydipsia Hemo/Lymphatic: Easy Bleeding Physical Exam Vital Signs Reviewed: Yes Vital Signs Temp Pulse Resp BP Pulse Ox 08/24/17 16:20 98.4 F 71 16 143/71 97 08/24/17 16:05 98.4 F 78 16 119/63 97 08/24/17 15:06 98.4 F 84 16 134/77 96 08/24/17 14:30 112/77 08/24/17 13:21 98.7 F 82 18 110/65 97 Temperature: Afebrile Appearance: Positive for: Non-Toxic Pain Distress: Mild Mental Status: Positive for: Alert and Oriented X 3 - Systems Exam Head: Present: Atraumatic Pupils: Present: PERRL Extroacular Muscles: Present: EOMI Mouth: Present: Dry Pharnyx: No: ERYTHEMA Nose (Internal): Present: Normal Inspection Neck: Present: Normal Range of Motion. No: Meningeal Signs Respiratory/Chest: Present: Clear to Auscultation. No: Respiratory Distress Cardiovascular: Present: Regular Rate and Rhythm, Murmurs Abdomen: No: Tenderness, Peritoneal Signs Rectal: No: Melena Back: No: CVA Tenderness Upper Extremity: No: Edema Lower Extremity: No: Edema, CALF TENDERNESS Neurological: Present: Motor Func Grossly Intact, Normal Sensory Function Skin: Present: Warm Psychiatric: Present: Alert Medical Decision Making ED Course and Treatment: 08/24/17 13:41 Patient evaluated upon arrival. Labs ordered given persistent diarrhea to assess for electrolyte abnormalities. Dr. Adam communicated to ED staff, plan for admission and flex sigmoidoscopy. Treatment plan reviewed with patient and family. Patient has had no recently colonoscopy or endoscopy she states. Currently cv stable. 08/24/17 16:37 Patient significantly hypokalemic. EKG reveals prolonged qt, although no symptomatic arrhythmias noted. BP stable. No chest pain or sob. Case d/w Dr. Olvera, will admit to remote telemetry for hypokalemia, further gi evaluation. Dr. Adam updated with labs. Mildly anemia, currently no melena noted. - Lab Interpretations Lab Results: 08/24/17 13:30 08/24/17 13:30 Lab Results 08/24/17 13:42: POC Glucose (mg/dL) 135 H 08/24/17 13:30: Blood Type Pending, Antibody Screen Pending, BBK History Checked Patient has bt 08/24/17 13:30: Sodium 140, Chloride 95 L, Potassium 2.4 L*, Carbon Dioxide 33, Anion Gap 15, BUN 13, Creatinine 1.1, Est GFR ( Amer) > 60, Est GFR (Non- Af Amer) 50, Random Glucose 148 H, Calcium 9.1, Total Bilirubin 2.0 H, AST 96 H D, ALT 42, Alkaline Phosphatase 81, Lactate Dehydrogenase 699, Total Creatine Kinase 87, Troponin I < 0.01, Total Protein 7.3, Albumin 4.0, Globulin 3.2, Albumin/Globulin Ratio 1.2 08/24/17 13:30: pO2 135 H, VBG pH 7.40, VBG pCO2 53.0, VBG HCO3 32.8 H, VBG Total CO2 34.4 H, VBG O2 Sat (Calc) 100.2 H, VBG Base Excess 6.5 H, VBG Potassium 2.5 L*, Sodium 139.0, Chloride 101.0, Glucose 152 H, Lactate 2.7 H, FiO2 21.0, Venous Blood Potassium 2.5 L* 08/24/17 13:30: PT 12.4, INR 1.09 H, APTT 24.3 L 08/24/17 13:30: WBC 5.0 D, RBC 2.80 L, Hgb 10.0 L, Hct 28.9 L, MCV 103.2, MCH 35.7 H, MCHC 34.6, RDW 16.2 H, Plt Count 77 L, MPV 9.9, Gran % 83.9 H, Lymph % ( Auto) 13.5 L, Blair % (Auto) 2.4, Eos % (Auto) 0.2 L, Baso % (Auto) 0.0, Gran # 4.22, Lymph # (Auto) 0.7 L, Blair # (Auto) 0.1, Eos # (Auto) 0.0, Baso # (Auto) 0.00 - RAD Interpretation Radiology Orders: 08/24/17 13:26 CHEST PORTABLE [RAD] Stat - EKG Interpretation EKG Interpretation (Text): EKG at 13:52, normal sinus rhythm rate of 90, prolonged qt Interpreted by ED Physician: Yes Type: 12 lead EKG - Medication Orders Current Medication Orders: Sodium Chloride (Sodium Chloride 0.9%) 1,000 mls @ 100 mls/hr IV .Q10H JOANNE Last Admin: 08/24/17 14:18 Dose: 100 mls/hr eMAR Start Stop Document 08/24/17 14:18 SARAH (Rec: 08/24/17 14:18 SARAH [id number]) Intravenous Solution Start Date 08/24/17 Start Time 14:18 Potassium Chloride (Potassium Chloride 10 Meq/100 Ml) 10 meq in 100 mls @ 50 mls/hr IVPB Q2H JOANNE Stop: 08/24/17 18:59 Sodium Chloride (Sodium Chloride 0.9%) 1,000 mls @ 100 mls/hr IV .Q10H JOANNE Discontinued Medications Famotidine (Pepcid) 20 mg IVP STAT STA Stop: 08/24/17 13:28 Last Admin: 08/24/17 14:18 Dose: 20 mg IVP Administration Document 08/24/17 14:18 SARAH (Rec: 08/24/17 14:18 SARAH [id number]) Charges for Administration # of IVP Administrations 1 Potassium Chloride (K-Dur 20 Meq Er Tab) 40 meq PO STAT STA Stop: 08/24/17 14:52 Disposition/Present on Arrival - Present on Arrival Any Indicators Present on Arrival: No History of DVT/PE: No History of Uncontrolled Diabetes: No Urinary Catheter: No History of Decub. Ulcer: No History Surgical Site Infection Following: None - Disposition Have Diagnosis and Disposition been Completed?: Yes Diagnosis: GI bleeding, Hypokalemia, Anemia Disposition: HOSPITALIZED Disposition Time: 15:00 Patient Plan: Admission, Telemetry Condition: FAIR
--- NOTE | 2017-08-24 14:14 | RAD ---
HISTORY: fatigue COMPARISON: Portable chest 11/21/2016 FINDINGS: LUNGS: No active pulmonary disease. PLEURA: No significant pleural effusion identified, no pneumothorax apparent. CARDIOVASCULAR: Normal. OSSEOUS STRUCTURES: No significant abnormalities. VISUALIZED UPPER ABDOMEN: Normal. OTHER FINDINGS: None. IMPRESSION: No interval acute cardiopulmonary disease appreciated.
[2017-08-24 14:30] LABS: VENOUS BLOOD GAS BASE EXCESS 6.5 mmol/L (0.0-2.0); VENOUS BLOOD GAS PO2 135 mm/Hg (30-55)
[2017-08-24 14:39] LABS: EOS % 0.2 % (1.5-5.0); GRAN # 4.22 (1.4-6.5); GRAN % 83.9 % (50.0-68.0); LYMPH # 0.7 (1.2-3.4); LYMPH % 13.5 % (22.0-35.0); MEAN CELL VOLUME 103.2 fl (80.0-105.0); MEAN CORPUSCULAR HEMOGLOBIN 35.7 pg (25.0-35.0); MEAN CORPUSCULAR HGB CONC 34.6 g/dl (31.0-37.0); MEAN PLATELET VOLUME 9.9 fl (7.0-11.0); MONO # 0.1 (0.1-0.6); MONO % 2.4 % (1.0-6.0); RBC 2.8 10^6/uL (3.5-6.1); RED CELL DISTRIBUTION WIDTH 16.2 % (11.5-14.5)
[2017-08-24 14:48] LABS: ALB/GLOB RATIO 1.2 (1.1-1.8); ALT/SGPT 42 U/L (7-56); AST/SGOT 96 U/L (14-36); BLOOD UREA NITROGEN 13 mg/dL (7-21); CALCIUM 9.1 mg/dL (8.4-10.5); GFR AFRICAN-AMERICAN > 60; GFR NON-AFRICAN AMERICAN 50
[2017-08-24 14:50] LABS: TROPONIN I < 0.01 ng/mL
[2017-08-24] MEDS ORDERED: Potassium Chloride 20 mEq ER Tab PO STA (14:51)
[2017-08-24 15:24] LABS: INR 1.09 (0.93-1.08); PARTIAL THROMBOPLASTIN TIME 24.3 Seconds (25.1-36.5); PROTHROMBIN TIME 12.4 SECONDS (9.4-12.5)
[2017-08-24] MEDS ORDERED: Propofol 10 mg/ml Inj (20 ML) ONE (15:40)
--- NOTE | 2017-08-24 17:48 | CP.PCM.CON ---
History of Present Illness - History of Present Illness History of Present Illness: CC: Bloody diarrhea HPI: 67 year old female with h/o C. difficile diarrhea, CHF, CAD s/p stents, HTN , DM, asthma who presents with chronic diarrhea, now bloody. She reports that she has always had problems with diarrhea throughout her life, but it has been especially bad the past several months. She was treated with antibiotics twice, one after positive stool ag for c diff and once empirically for possible cdiff with mild improvement but quickly recurrent symptoms. She had positive celiac serologies but no duodenal biospies to date. She tries with moderate success to adhere to gluten free diet. She also has intermittent diffuse abdominal pain. She says diarrhea improves a bit with gluten avoidance. Recently, she has bloody bm a few times in the past week. She feels week and fatigued. 12 Point ROS performed and negative other than stated above. PMH: Possible Celiac disease, C. diff, CHF, CAD (with stents), HTN, DM, and asthma PSH: Gastric bypass 25 years ago Med: refer to [facility] ALL: NKA SH: former smoker (smoke 1 PPD x 30 years, Quit 8 years ago), Denies drinking or drugs. 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 ; Colonoscopy 8 years ago and was unremarkable Past Patient History - Infectious Disease Hx of Infectious Diseases: None - Tetanus Immunizations Tetanus Immunization: Unknown - Past Medical History & Family History Past Medical History?: Yes - Past Social History Smoking Status: Former Smoker - CARDIAC Hx Cardiac Disorders: Yes Hx Congestive Heart Failure: Yes Hx Hypertension: Yes - PULMONARY Hx Respiratory Disorders: Yes Hx Asthma: Yes - NEUROLOGICAL Hx Neurological Disorder: No Hx Paralysis: No - HEENT Hx HEENT Problems: Yes Other/Comment: glasses - RENAL Hx Chronic Kidney Disease: No - ENDOCRINE/METABOLIC Hx Diabetes Mellitus Type 2: Yes - HEMATOLOGICAL/ONCOLOGICAL Hx Blood Transfusions: No - INTEGUMENTARY Hx Dermatological Problems: No - MUSCULOSKELETAL/RHEUMATOLOGICAL Hx Musculoskeletal Disorders: Yes - GASTROINTESTINAL Hx Gastrointestinal Disorders: No - GENITOURINARY/GYNECOLOGICAL Hx Genitourinary Disorders: No - PSYCHIATRIC Hx Psychophysiologic Disorder: No Hx Emotional Abuse: No Hx Physical Abuse: No Hx Substance Use: No - SURGICAL HISTORY Hx Cardiac Catheterization: Yes Hx Coronary Stent: Yes - ANESTHESIA Hx Anesthesia Reactions: No Hx Malignant Hyperthermia: No Meds Allergies/Adverse Reactions: Allergies Allergy/AdvReac Type Severity Reaction Status Date / Time No Known Allergies Allergy Verified 04/12/17 15:36 - Medications Medications: Current Medications Sodium Chloride (Sodium Chloride 0.9%) 1,000 mls @ 100 mls/hr IV .Q10H JOANNE Last Admin: 08/24/17 14:18 Dose: 100 mls/hr Potassium Chloride (Potassium Chloride 10 Meq/100 Ml) 10 meq in 100 mls @ 50 mls/hr IVPB Q2H JOANNE Stop: 08/24/17 18:59 Sodium Chloride (Sodium Chloride 0.9%) 1,000 mls @ 100 mls/hr IV .Q10H JOANNE Physical Exam - Constitutional Appears: Well, Non-toxic, No Acute Distress - Head Exam Head Exam: ATRAUMATIC, NORMOCEPHALIC - Eye Exam Eye Exam: Normal appearance, PERRL. absent: Scleral icterus - ENT Exam ENT Exam: Mucous Membranes Moist, Normal Oropharynx - Neck Exam Neck exam: Negative for: Lymphadenopathy, Thyromegaly - Respiratory Exam Respiratory Exam: Clear to Auscultation Bilateral, NORMAL BREATHING PATTERN. absent: Respiratory Distress - Cardiovascular Exam Cardiovascular Exam: REGULAR RHYTHM, +S1, +S2 - GI/Abdominal Exam GI & Abdominal Exam: Soft. absent: Distended, Guarding, Tenderness - Extremities Exam Extremities exam: Positive for: normal capillary refill. Negative for: pedal edema - Neurological Exam Neurological exam: Alert, Oriented x3 - Psychiatric Exam Psychiatric exam: Normal Affect, Normal Mood - Skin Skin Exam: Dry, Warm Results - Vital Signs Recent Vital Signs: Last Vital Signs Temp 98.4 F 08/24/17 16:50 Pulse 79 08/24/17 16:50 Resp 16 08/24/17 16:50 BP 140/82 08/24/17 16:50 Pulse Ox 100 08/24/17 16:50 - Labs Result Diagrams: 08/24/17 13:30 08/24/17 13:30 Assessment & Plan - Assessment and Plan (Free Text) Assessment: 67 year old female with h/o C. diff diarrhea, CHF, CAD, HTN, DM admitted with chronic diarrhea and blood in the stool. 1. Chronic diarrhea 2. Abdominal pain 3. BRBPR Plan: -recommend flex sig today -check stool for C. diff/culture/o&p -ddx includes celiac, cdiff, UC, crohns, microscopic colitis -IV hydration / supportive care in the interim - Date & Time Date: 08/24/17 Time: 15:00
[2017-08-24] MEDS: Sodium Chloride 0.9% 1,000 ML IV SCH (18:00)
[2017-08-24 19:07] LABS: VENOUS BLOOD GAS PO2 41 mm/Hg (30-55)
[2017-08-25 02:40] LABS: BLOOD UREA NITROGEN 12 mg/dL (7-21); CALCIUM 8.6 mg/dL (8.4-10.5); GFR AFRICAN-AMERICAN > 60; GFR NON-AFRICAN AMERICAN 55; MAGNESIUM 1.5 mg/dL (1.7-2.2); TROPONIN I 0.02 ng/mL
[2017-08-25] MEDS ORDERED: Potassium Chloride 20 mEq ER Tab PO ONE (02:42)
[2017-08-25] MEDS: Sodium Chloride 0.9% 1,000 ML IV SCH ×2 (03:08→17:09)
[2017-08-25] MEDS ORDERED: Magnesium Sulfate 1 gm in D5W 1 GM/100 ML BAG IVPB ONE (03:17)
--- NOTE | 2017-08-25 03:23 | CP.PCM.PN ---
Subjective - Date & Time of Evaluation Date of Evaluation: 08/25/17 Time of Evaluation: 00:40 - Subjective Subjective: pt had 10 beats of v-tach.asymptomatic . pt is admitted for chronic diarrhea and hypokalemia. and weakness. Objective - Vital Signs/Intake and Output Vital Signs (last 24 hours): Temp Pulse Resp BP Pulse Ox 98.8 F 78 18 123/72 98 08/24/17 17:50 08/24/17 18:30 08/24/17 18:30 08/24/17 18:30 08/24/17 18:30 - Medications Medications: Current Medications Atorvastatin Calcium (Lipitor) 80 mg PO DAILY [facility] Clopidogrel Bisulfate (Plavix) 75 mg PO DAILY [facility] Digoxin (Digoxin) 0.125 mg PO 1400 [facility] Duloxetine HCl (Cymbalta) 20 mg PO DAILY [facility] Sodium Chloride (Sodium Chloride 0.9%) 1,000 mls @ 100 mls/hr IV .Q10H [facility] Last Admin: 08/25/17 03:08 Dose: 100 mls/hr Potassium Chloride (Potassium Chloride 20 Meq/100 Ml) 20 meq in 100 mls @ 50 mls/hr IVPB Q2H JOANNE Stop: 08/25/17 06:44 Last Admin: 08/25/17 03:08 Dose: 50 mls/hr Memantine (Namenda) 5 mg PO DAILY [facility] Mirtazapine (Remeron) 15 mg PO HS PRN PRN Reason: Insomnia Last Admin: 08/24/17 22:38 Dose: 15 mg Potassium Chloride (K-Dur 20 Meq Er Tab) 40 meq PO BRK [facility] Propranolol HCl (Inderal) 40 mg PO DAILY [facility] Quetiapine Fumarate (Seroquel) 12.5 mg PO HS JOANNE PRN Reason: Protocol Last Admin: 08/24/17 22:38 Dose: 12.5 mg Thiamine HCl (Vitamin B1 Tab) 100 mg PO Q8H JOANNE Last Admin: 08/24/17 22:38 Dose: 100 mg - Labs Labs: 08/25/17 00:50 PT 12.4 SECONDS (9.4-12.5) 08/24/17 13:30 INR 1.09 (0.93-1.08) H 08/24/17 13:30 APTT 24.3 Seconds (25.1-36.5) L 02/15/18 13:30 - Constitutional Appears: No Acute Distress - Head Exam Head Exam: NORMOCEPHALIC - Eye Exam Eye Exam: Normal appearance - ENT Exam ENT Exam: Mucous Membranes Moist - Neck Exam Neck Exam: Full ROM - Respiratory Exam Respiratory Exam: NORMAL BREATHING PATTERN - Cardiovascular Exam Cardiovascular Exam: Tachycardia - GI/Abdominal Exam GI & Abdominal Exam: Soft - Extremities Exam Extremities Exam: Full ROM - Neurological Exam Neurological Exam: Awake, CN II-XII Intact, Oriented x3 - Psychiatric Exam Psychiatric exam: Normal Affect - Skin Skin Exam: Dry Assessment and Plan - Assessment and Plan (Free Text) Assessment: cradiac arrythmia v-tach non sustained ./hypokalemia. chronic diarrhea. Plan: kcl 20 meqx2 and 20 meq po x1 mg 1 gm iv . troponine. urine electrolytes.
--- NOTE | 2017-08-25 05:36 | CP.PCM.PN ---
<Leif Jackson - Last Filed: 08/25/17 12:18> Subjective - Date & Time of Evaluation Date of Evaluation: 08/25/17 Time of Evaluation: 05:32 - Subjective Subjective: GI progress note for Dr. Hair - Leif Jackson PGY2 Reason for consult: chronic diarrhea Patient seen and examined at bedside this morning. No acute overnight events or new complaints reported. She reported no episodes of diarrhea or bowel movements this morning. Denies abdominal pain, nausea, vomiting, melena, hematochezia, hematemesis, chest pain, palpitations, SOB. 12point ROS as per above otherwise negative Objective - Vital Signs/Intake and Output Vital Signs (last 24 hours): Temp Pulse Resp BP Pulse Ox 98.8 F 78 15 123/72 98 08/24/17 17:50 08/24/17 18:30 08/25/17 03:51 08/24/17 18:30 08/24/17 18:30 - Medications Medications: Current Medications Atorvastatin Calcium (Lipitor) 80 mg PO DAILY [facility] Clopidogrel Bisulfate (Plavix) 75 mg PO DAILY [facility] Digoxin (Digoxin) 0.125 mg PO 1400 JOANNE Duloxetine HCl (Cymbalta) 20 mg PO DAILY [facility] Sodium Chloride (Sodium Chloride 0.9%) 1,000 mls @ 100 mls/hr IV .Q10H [facility] Last Admin: 08/25/17 03:08 Dose: 100 mls/hr Potassium Chloride (Potassium Chloride 20 Meq/100 Ml) 20 meq in 100 mls @ 50 mls/hr IVPB Q2H JOANNE Stop: 08/25/17 06:44 Last Admin: 08/25/17 03:08 Dose: 50 mls/hr Memantine (Namenda) 5 mg PO DAILY [facility] Mirtazapine (Remeron) 15 mg PO HS PRN PRN Reason: Insomnia Last Admin: 08/24/17 22:38 Dose: 15 mg Potassium Chloride (K-Dur 20 Meq Er Tab) 40 meq PO BRK JOANNE Propranolol HCl (Inderal) 40 mg PO DAILY [facility] Quetiapine Fumarate (Seroquel) 12.5 mg PO HS JOANNE PRN Reason: Protocol Last Admin: 08/24/17 22:38 Dose: 12.5 mg Thiamine HCl (Vitamin B1 Tab) 100 mg PO Q8H JOANNE Last Admin: 08/24/17 22:38 Dose: 100 mg - Labs Labs: 08/25/17 00:50 PT 12.4 SECONDS (9.4-12.5) 08/24/17 13:30 INR 1.09 (0.93-1.08) H 08/24/17 13:30 APTT 24.3 Seconds (25.1-36.5) L 08/24/17 13:30 - Constitutional Appears: No Acute Distress - Head Exam Head Exam: ATRAUMATIC, NORMOCEPHALIC - Eye Exam Eye Exam: EOMI Pupil Exam: PERRL - ENT Exam ENT Exam: Mucous Membranes Moist - Respiratory Exam Respiratory Exam: absent: Rales, Rhonchi, Wheezes - Cardiovascular Exam Cardiovascular Exam: +S1, +S2. absent: Gallop, Rubs, Murmur - GI/Abdominal Exam GI & Abdominal Exam: Soft. absent: Distended, Firm, Guarding, Rigid, Tenderness , Rebound - Extremities Exam Extremities Exam: Normal Inspection. absent: Pedal Edema - Neurological Exam Neurological Exam: Alert, Awake, Oriented x3 - Psychiatric Exam Psychiatric exam: Normal Affect, Normal Mood - Skin Skin Exam: Dry, Intact, Normal Color, Warm Assessment and Plan - Assessment and Plan (Free Text) Plan: 67yo female with history of C. diff diarrhea, celiac disease confirmed on serology, CHF, CAD, HTN, DM admitted for chronic diarrhea in the setting of hematochezia and epigastric abdominal pain 1. Chronic diarrhea 2. Abdominal pain 3. Celiac disease 4. Hx of cdiff diarrhea 5. CAD 6. HTN 7. CHF Plan: -Diet advanced to full liquids -Pending stool culture, cdiff and ova/parasites -Monitor and replete electrolytes as indicated/IVF hydration -Pending pathology from flex sig -Anemia workup pending <Eder Hair - Last Filed: 08/25/17 13:08> Objective - Vital Signs/Intake and Output Vital Signs (last 24 hours): Temp Pulse Resp BP Pulse Ox 98.3 F 69 20 152/84 H 100 08/25/17 06:00 08/25/17 09:37 08/25/17 06:00 08/25/17 09:37 08/25/17 06:00 Intake and Output: 08/25/17 08/25/17 06:59 18:59 Intake Total 120 Balance 120 - Medications Medications: Current Medications Atorvastatin Calcium (Lipitor) 80 mg PO DAILY [facility] Last Admin: 08/25/17 09:39 Dose: 80 mg Clopidogrel Bisulfate (Plavix) 75 mg PO DAILY [facility] Last Admin: 08/25/17 09:40 Dose: 75 mg Digoxin (Digoxin) 0.125 mg PO 1400 JOANNE Duloxetine HCl (Cymbalta) 20 mg PO DAILY [facility] Last Admin: 08/25/17 09:37 Dose: 20 mg Sodium Chloride (Sodium Chloride 0.9%) 1,000 mls @ 100 mls/hr IV .Q10H [facility] Last Admin: 08/25/17 03:08 Dose: 100 mls/hr Memantine (Namenda) 5 mg PO DAILY [facility] Last Admin: 08/25/17 09:40 Dose: 5 mg Mirtazapine (Remeron) 15 mg PO HS PRN PRN Reason: Insomnia Last Admin: 08/24/17 22:38 Dose: 15 mg Potassium Chloride (K-Dur 20 Meq Er Tab) 40 meq PO BRK [facility] Last Admin: 08/25/17 09:39 Dose: 40 meq Propranolol HCl (Inderal) 40 mg PO DAILY [facility] Last Admin: 08/25/17 09:37 Dose: 40 mg Quetiapine Fumarate (Seroquel) 12.5 mg PO HS JOANNE PRN Reason: Protocol Last Admin: 08/24/17 22:38 Dose: 12.5 mg Thiamine HCl (Vitamin B1 Tab) 100 mg PO Q8H [facility] Last Admin: 08/25/17 05:35 Dose: 100 mg - Labs Labs: 08/25/17 06:00 08/25/17 06:00 PT 12.4 SECONDS (9.4-12.5) 08/24/17 13:30 INR 1.09 (0.93-1.08) H 08/24/17 13:30 APTT 24.3 Seconds (25.1-36.5) L 08/24/17 13:30 Attending/Attestation - Attestation I have personally seen and examined this patient.: Yes I have fully participated in the care of the patient.: Yes I have reviewed all pertinent clinical information, including history, physical exam and plan: Yes Notes (Text): 08/25/17 13:06 I have seen and examined patient with site medical director. She is seen resting in bed comfortably. She denies abdominal pain, nausea, vomiting, fever/chills. No bowel movements today thus far. Tolerating PO liquids without difficulty. DM / HTN CHF CAD s/p stent on plavix Celiac disease Chronic diarrhea, rectal bleeding - s/p flex sigmoidoscopy yesterday showing distal colitis of unclear etiology - Advance to full liquid diet as tolerated - Awaiting sigmoidoscopy biopsy results - Awaiting stool study results - Will continue to monitor patient clinical course
[2017-08-25 06:34] LABS: HEMOGLOBIN 9.5 g/dL (12.0-16.0); MEAN CELL VOLUME 103.4 fl (80.0-105.0); MEAN CORPUSCULAR HEMOGLOBIN 35.7 pg (25.0-35.0); MEAN CORPUSCULAR HGB CONC 34.5 g/dl (31.0-37.0); MEAN PLATELET VOLUME 10.2 fl (7.0-11.0); RBC 2.66 10^6/uL (3.5-6.1); RED CELL DISTRIBUTION WIDTH 16.1 % (11.5-14.5); WHITE BLOOD COUNT 3.3 10^3/ul (4.5-11.0)
[2017-08-25 06:50] LABS: IRON 65 ug/dL (45-180)
[2017-08-25 06:51] LABS: LDL CHOLESTEROL 54 mg/dL (0-129)
[2017-08-25 06:56] LABS: ALB/GLOB RATIO 1.2 (1.1-1.8); ALBUMIN 4.2 g/dL (3.0-4.8); ALT/SGPT 45 U/L (7-56); AST/SGOT 96 U/L (14-36); BLOOD UREA NITROGEN 11 mg/dL (7-21); CALCIUM 9.1 mg/dL (8.4-10.5); GFR AFRICAN-AMERICAN > 60; GFR NON-AFRICAN AMERICAN 55; HDL CHOLESTEROL 133 mg/dL (29-60)
[2017-08-25 07:00] LABS: % IRON SATURATION 30 % (20-55); TOTAL IRON BINDING CAPACITY 212 ug/dL (265-497)
[2017-08-25] MEDS: Potassium Chloride 20 mEq ER Tab PO SCH (09:39)
--- NOTE | 2017-08-25 09:59 | CARD ---
APPROVED REPORT EKG Measurement Heart [id number] <Conclusion> Normal sinus rhythm Prolonged QT, new
[2017-08-25] MEDS ORDERED: POTASSIUM CHLORIDE 40 MEQ PO SCH (10:00)
[2017-08-25] MEDS ORDERED: PROPRANOLOL HCL 40 MG PO SCH (10:00)
[2017-08-25 12:37] LABS: FOLATE 9.5 ng/mL
--- NOTE | 2017-08-25 15:43 | HP ---
DATE: 08/24/2017 CHIEF COMPLAINT: d, blood in the stool , HISTORY OF PRESENT ILLNESS: a 66-year-old female with past medical history of cardiac disease, came to the emergency department with history of diarrhea, loose stool for 6 to 7 times a day for the past 2 months. Patient states that she has noted bright red blood with bowel movement over the past 1 to 2 weeks, that she has been increasingly fatigued over the past week. Denies chest pain, shortness of breath. Denies abdominal pain. No nausea, vomiting, dyspnea, but feeling fatigued and tired. PAST MEDICAL HISTORY: Congestive heart failure, hypertension, asthma, diabetes mellitus type 2, coronary stents. FAMILY HISTORY: Father and mother, noncontributory. HABITS: Former smoker, no ethnol , no drugs ALLERGIES: THE PATIENT IS NOT ALLERGIC WITH ANY MEDICATIONS. REVIEW OF SYSTEMS: Patient was seen and examined at the bedside in the emergency room. Daughter was sitting on the bedside, looking comfortable. No nausea or vomiting. Feeling fatigued and tired. No chest pain or palpitation. No fever or chills. No headache, no dizziness. PHYSICAL EXAMINATION: VITAL SIGNS: Temperature 97.4, pulse 100, respiratory rate 16, blood pressure 100/56, pulse oximetry 97. HEENT: Head: Normocephalic, atraumatic. Eyes: PERRLA, extraocular movements are intact, conjunctivae are clear. Nose: Patent. NECK: Supple. No carotid bruits. No thyromegaly. CHEST: Bilaterally symmetrical. HEART: S1 and S2 positive. LUNGS: Clear to auscultation. ABDOMEN: Soft. Bowel sounds are present. No organomegaly. EXTREMITIES: No edema. No cyanosis. NEUROLOGIC: Patient is awake, alert, and oriented, moving all four extremities with no focal deficit. LABORATORY DATA: White blood cells 5.0, hemoglobin 10.0, hematocrit 28.9, platelets 77. Sodium 140, potassium 2.4, BUN 13, creatinine 1.1, glucose 148. ASSESSMENT AND PLAN: a 66-year-old lady with anemia, hypokalemia, replaced in the ER, hyperglycemia, thrombocytopenia, hands are bleeding well. Patient is kept in the hospital and seen by gi , done sigmoidoscopy. Patient has history of chronic diarrhea, coronary artery disease, congestive heart failure, hypertension, history of asthma, diabetes mellitus type 2, history of musculoskeletal pain, coronary stents, seen by electron tube assembler. Patient with history of Clostridium difficile colitis, history of gastric bypass 25 years ago. possible colitis, ova and parasites . We will follow. Fariha Olvera MD MTDHaris
[2017-08-25] MEDS: Digoxin 125 mcg (0.125 mg) Tab PO SCH (17:08)
[2017-08-26] MEDS: Sodium Chloride 0.9% 1,000 ML IV SCH ×2 (00:03→09:49)
[2017-08-26] MEDS: Potassium Chloride 20 mEq ER Tab PO SCH (09:48)
--- NOTE | 2017-08-26 11:38 | CP.PCM.PN ---
<Sola Cunningham - Last Filed: 08/26/17 11:38> Subjective - Date & Time of Evaluation Date of Evaluation: 08/26/17 Time of Evaluation: 08:00 - Subjective Subjective: GI Fellow PGY4 Progress Note Patient seen and examined at bedside this morning. No acute overnight events or new complaints reported. She reported 3 episodes of diarrhea this morning. Denies abdominal pain, nausea, vomiting, fevers or chills. 12point ROS as per above otherwise negative Objective - Vital Signs/Intake and Output Vital Signs (last 24 hours): Temp Pulse Resp BP Pulse Ox 97.9 F 65 20 142/81 100 08/26/17 00:00 08/26/17 09:47 08/26/17 00:00 08/26/17 09:47 08/26/17 00:00 Intake and Output: 08/26/17 08/26/17 06:59 18:59 Intake Total 840 Balance 840 - Medications Medications: Current Medications Atorvastatin Calcium (Lipitor) 80 mg PO DAILY [facility] Last Admin: 08/26/17 09:49 Dose: 80 mg Clopidogrel Bisulfate (Plavix) 75 mg PO DAILY [facility] Last Admin: 08/26/17 09:49 Dose: 75 mg Digoxin (Digoxin) 0.125 mg PO 1400 [facility] Last Admin: 08/25/17 17:08 Dose: 0.125 mg Duloxetine HCl (Cymbalta) 20 mg PO DAILY [facility] Last Admin: 08/26/17 09:46 Dose: 20 mg Sodium Chloride (Sodium Chloride 0.9%) 1,000 mls @ 100 mls/hr IV .Q10H [facility] Last Admin: 08/26/17 09:49 Dose: 100 mls/hr Memantine (Namenda) 5 mg PO DAILY [facility] Last Admin: 08/26/17 09:48 Dose: 5 mg Metronidazole (Flagyl) 500 mg PO TID [facility] PRN Reason: Protocol Last Admin: 08/26/17 09:47 Dose: 500 mg Mirtazapine (Remeron) 15 mg PO HS PRN PRN Reason: Insomnia Last Admin: 08/25/17 21:30 Dose: 15 mg Potassium Chloride (K-Dur 20 Meq Er Tab) 40 meq PO BRK [facility] Last Admin: 08/26/17 09:48 Dose: 40 meq Propranolol HCl (Inderal) 40 mg PO DAILY [facility] Last Admin: 08/26/17 09:47 Dose: 40 mg Quetiapine Fumarate (Seroquel) 12.5 mg PO HS [facility] PRN Reason: Protocol Last Admin: 08/25/17 21:31 Dose: 12.5 mg Thiamine HCl (Vitamin B1 Tab) 100 mg PO Q8H [facility] Last Admin: 08/26/17 05:18 Dose: 100 mg - Labs Labs: 08/25/17 06:00 08/25/17 06:00 PT 12.4 SECONDS (9.4-12.5) 08/24/17 13:30 INR 1.09 (0.93-1.08) H 08/24/17 13:30 APTT 24.3 Seconds (25.1-36.5) L 08/24/17 13:30 - Constitutional Appears: Non-toxic, No Acute Distress - Head Exam Head Exam: ATRAUMATIC, NORMAL INSPECTION, NORMOCEPHALIC - Eye Exam Eye Exam: EOMI, Normal appearance Pupil Exam: NORMAL ACCOMODATION, PERRL - ENT Exam ENT Exam: Mucous Membranes Moist, Normal Exam - Neck Exam Neck Exam: Normal Inspection - Respiratory Exam Respiratory Exam: NORMAL BREATHING PATTERN - Cardiovascular Exam Cardiovascular Exam: REGULAR RHYTHM - GI/Abdominal Exam GI & Abdominal Exam: Soft, Normal Bowel Sounds. absent: Distended, Tenderness - Neurological Exam Neurological Exam: Alert, Awake, Oriented x3 - Psychiatric Exam Psychiatric exam: Normal Affect, Normal Mood - Skin Skin Exam: Dry, Intact, Normal Color, Warm Assessment and Plan - Assessment and Plan (Free Text) Assessment: This is a 66yf presenting with abdominal pain and diarrhea. 1. Celiac disease 2. Chronic diarrhea, rectal bleeding - s/p flex sigmoidoscopy yesterday showing distal colitis of unclear etiology 3. Cdiff antigen positive Plan: -Continue supportive care with pain control and anti-emetics - Advance to celiac diet as tolerated - Awaiting sigmoidoscopy biopsy results - Cdiff antigen positive treat with po flagyl, if no improvement can switch to po vancomycin - Will continue to monitor patient clinical course <Todd Adam - Last Filed: 08/26/17 14:48> Objective - Vital Signs/Intake and Output Vital Signs (last 24 hours): Temp Pulse Resp BP Pulse Ox 97.9 F 65 20 142/81 100 08/26/17 00:00 08/26/17 09:47 08/26/17 00:00 08/26/17 09:47 08/26/17 00:00 Intake and Output: 08/26/17 08/26/17 06:59 18:59 Intake Total 840 180 Output Total 600 Balance 840 -420 - Medications Medications: Current Medications Atorvastatin Calcium (Lipitor) 80 mg PO DAILY [facility] Last Admin: 08/26/17 09:49 Dose: 80 mg Clopidogrel Bisulfate (Plavix) 75 mg PO DAILY [facility] Last Admin: 08/26/17 09:49 Dose: 75 mg Digoxin (Digoxin) 0.125 mg PO 1400 [facility] Last Admin: 08/26/17 14:18 Dose: 0.125 mg Donepezil HCl (Aricept) 10 mg PO HS [facility] Duloxetine HCl (Cymbalta) 20 mg PO DAILY [facility] Last Admin: 08/26/17 09:46 Dose: 20 mg Sodium Chloride (Sodium Chloride 0.9%) 1,000 mls @ 100 mls/hr IV .Q10H [facility] Last Admin: 08/26/17 09:49 Dose: 100 mls/hr Memantine (Namenda) 5 mg PO DAILY [facility] Last Admin: 08/26/17 09:48 Dose: 5 mg Metronidazole (Flagyl) 500 mg PO TID [facility] PRN Reason: Protocol Last Admin: 08/26/17 14:20 Dose: 500 mg Mirtazapine (Remeron) 15 mg PO HS PRN PRN Reason: Insomnia Last Admin: 08/25/17 21:30 Dose: 15 mg Potassium Chloride (K-Dur 20 Meq Er Tab) 40 meq PO BRK [facility] Last Admin: 08/26/17 09:48 Dose: 40 meq Propranolol HCl (Inderal) 40 mg PO DAILY [facility] Last Admin: 08/26/17 09:47 Dose: 40 mg Quetiapine Fumarate (Seroquel) 12.5 mg PO HS [facility] PRN Reason: Protocol Last Admin: 08/25/17 21:31 Dose: 12.5 mg Thiamine HCl (Vitamin B1 Tab) 100 mg PO Q8H [facility] Last Admin: 08/26/17 14:21 Dose: 100 mg - Labs Labs: 08/25/17 06:00 08/25/17 06:00 PT 12.4 SECONDS (9.4-12.5) 08/24/17 13:30 INR 1.09 (0.93-1.08) H 08/24/17 13:30 APTT 24.3 Seconds (25.1-36.5) L 08/24/17 13:30 Attending/Attestation - Attestation I have personally seen and examined this patient.: Yes I have fully participated in the care of the patient.: Yes I have reviewed all pertinent clinical information, including history, physical exam and plan: Yes Notes (Text): 08/26/17 14:46 67 year old female with h/o C. diff diarrhea, CHF, CAD, HTN, DM admitted with chronic diarrhea and blood in the stool. 1. Clostridium difficile diarrhea Plan: -sigmoidoscopy did show evidence of left sided colitis -await path, r/o microcscopic colitis or IBD -c diff antigen has been positive twice on two separate hospitalizations, but toxin never positive -continue flagyl -gluten free diet considering positive celiac serologies
[2017-08-26] MEDS: Digoxin 125 mcg (0.125 mg) Tab PO SCH (14:18)
--- NOTE | 2017-08-26 15:21 | CON ---
DATE: HISTORY OF PRESENT ILLNESS: This is a 66-year-old black female with past medical history of cardiac disease, chronic diarrhea, came to the emergency room with diarrhea for the past 2 months and noted blood with the bowel movements and also becoming increasingly fatigued over the past week and the patient admitted to hospital and had a change in mental status. Called to evaluate the patient. PAST MEDICAL HISTORY: As above. ALLERGY: REVIEW OF ALLERGY, NO KNOWN DRUG ALLERGY. REVIEW OF SYSTEMS: Ten-point review of systems was negative except fatigue, weight loss and diarrhea. PHYSICAL EXAMINATION: VITAL SIGNS: Blood pressure 119/63. HEENT: Normocephalic, atraumatic. NECK: Supple. NEUROLOGIC: Alert, awake, oriented x3. No aphasia. Cranial nerves II through XII are tested. Pupils reactive. EOM intact. Visual her full. No facial asymmetry. Tongue midline. Motor examination: Moves all the extremities equally. Tone normal. Deep tendon reflexes 1+. Both plantars are downgoing. Sensory grossly intact. Cerebellar, gait normal. IMPRESSION: A 66-year-old black female, past medical history of cardiac disease, chronic diarrhea, presented with recent weight loss and bloody diarrhea and also found to have some change in mental status. Called to evaluate the patient. Possibly, the patient is also complaining of forgetfulness, possibly dementia. PLAN: We will do CAT scan of the head without contrast. The patient also has low potassium, hypokalemia and we will order B12 and folate level and also start Aricept 10 mg p.o. daily. We will follow up. Reginaldo Card MD
--- NOTE | 2017-08-26 19:56 | CT ---
EXAM: CT Head Without Intravenous Contrast EXAM DATE/TIME: 08/26/2017 2:31 PM CLINICAL HISTORY: The patient age is 66 years old and is female; Signs and symptoms; Other: Confusion Facility exam id and description: Ct heads head w/o contrast TECHNIQUE: Axial computed tomography images of the head/brain without intravenous contrast. All CT scans at this facility use one or more dose reduction techniques, viz.: automated exposure control; ma/kV adjustment per patient size (including targeted exams where dose is matched to indication; i.e. head); or iterative reconstruction technique. Coronal and sagittal reformatted images were created and reviewed. COMPARISON: CT - HEAD W/O CONTRAST 2017-04-12 11:22 FINDINGS: Brain: There are periventricular foci of hypodensity, likely representing small vessel ischemic disease in a patient this age. The acuity of the white matter disease is indeterminate. The white-levin differentiation is preserved demonstrating no acute territorial type infarct. There is mild prominence of the ventricles and sulci, compatible with atrophy. No acute intracranial hemorrhage is seen. Midline shift: There is no midline shift. Ventricles: See above. Bones/joints: The calvarium demonstrates no evidence for a depressed fracture. Soft tissues: No acute abnormality. Vasculature: There is atherosclerotic calcification of the cavernous internal carotid arteries and distal left vertebral artery. Sinuses: Unremarkable as visualized. No acute sinusitis. Mastoid air cells: No mastoid effusion. IMPRESSION: 1. No acute intracranial hemorrhage or acute territorial type infarct. 2. There are periventricular foci of hypodensity, likely representing small vessel ischemic disease in a patient this age. 3. Mild atrophy.
--- NOTE | 2017-08-27 00:50 | PN ---
DATE: SUBJECTIVE: The patient was seen and examined on the bedside. Looks confused, talking about her school age things. No acute event happened overnight. The patient reported 3 episodes of diarrhea. Denies abdominal pain. No nausea, vomiting or diarrhea. No fever. No chills. As per nursing staff, in the evening, the patient was walking around in the hallway forgetting everything; then they put the patient on one-to-one and they called a Psych consult and a Neurology consult. REVIEW OF SYSTEMS: A 12-point review of systems as per above, otherwise, negative. PHYSICAL EXAMINATION: VITAL SIGNS: Temperature 97.9, pulse 65, respiratory rate 20, blood pressure 142/81, pulse oximetry 100. HEENT: Head is normocephalic and atraumatic. Eyes, PERRLA. Extraocular muscles are intact. Conjunctivae are clear. Nose is patent. Mucous membranes are moist. NECK: Supple. No carotid bruits. No JVD or thyromegaly. CHEST: Bilaterally symmetrical. HEART: S1 and S2 positive. LUNGS: Clear to auscultation. ABDOMEN: Soft. Bowel sounds present. No organomegaly. EXTREMITIES: No edema. No cyanosis. NEUROLOGIC: The patient is awake and alert, but confused. MEDICATIONS: Lipitor, Plavix, digoxin, Cymbalta, NS, Namenda, Flagyl, Remeron, potassium, propranolol, Seroquel, thiamine. LABORATORY DATA: White blood cells 3.3, hemoglobin 9.5, hematocrit 27.5, platelets 58. Sodium 144, potassium 4.8, BUN 11, creatinine is 1.0, glucose 90. ASSESSMENT AND PLAN: Ms. Willow Cast is a 66-year-old female with leukopenia, anemia; thrombocytopenia, actually pancytopenia; hypokalemia, replaced; came with abdominal pain and diarrhea. The patient has celiac disease, chronic sigmoidoscopy yesterday showing distal colitis of unclear etiology. Clostridium difficile toxin antigen is positive. Started on Flagyl. Advance celiac diet as tolerated. Waiting for sigmoidoscopy, biopsy results. Waiting if Flagyl will not help, then maybe we will switch to p.o. vancomycin. The patient today had altered mental status. CAT scan of the head was done and results are pending. consult called with Dr. Card. Dr. Reginaldo Card saw the patient. The patient has history of cardiac disease. Recently losing weight. The patient is complaining about forgetfulness, possibly dementia as per Dr. Card. He started the patient on Aricept. Meanwhile, we will continue present treatment, gastrointestinal and deep venous thrombosis prophylaxis, repeat labs. Fariha Olvera MD MTDD
[2017-08-27] MEDS: Potassium Chloride 20 mEq ER Tab PO SCH (10:25)
--- NOTE | 2017-08-27 10:50 | CP.PCM.PN ---
<Sola Cunningham - Last Filed: 08/27/17 10:51> Subjective - Date & Time of Evaluation Date of Evaluation: 08/27/17 Time of Evaluation: 08:00 - Subjective Subjective: GI Fellow PGY4 Progress Note Patient seen and examined at bedside this morning. No acute overnight events or new complaints reported. She reported 2 episodes of diarrhea yesterday and no diarrhea this morning. Denies abdominal pain, nausea, vomiting, fevers or chills. 12point ROS as per above otherwise negative Objective - Vital Signs/Intake and Output Vital Signs (last 24 hours): Temp Pulse Resp BP Pulse Ox 98.3 F 72 18 142/73 100 08/27/17 06:00 08/27/17 06:00 08/27/17 06:00 08/27/17 10:24 08/27/17 06:00 Intake and Output: 08/27/17 08/27/17 06:59 18:59 Intake Total 360 Balance 360 - Medications Medications: Current Medications Atorvastatin Calcium (Lipitor) 80 mg PO DAILY [facility] Last Admin: 08/27/17 10:24 Dose: 80 mg Clopidogrel Bisulfate (Plavix) 75 mg PO DAILY [facility] Last Admin: 08/27/17 10:24 Dose: 75 mg Digoxin (Digoxin) 0.125 mg PO 1400 [facility] Last Admin: 08/26/17 14:18 Dose: 0.125 mg Donepezil HCl (Aricept) 10 mg PO HS [facility] Last Admin: 08/26/17 22:15 Dose: 10 mg Duloxetine HCl (Cymbalta) 20 mg PO DAILY [facility] Last Admin: 08/27/17 10:24 Dose: 20 mg Sodium Chloride (Sodium Chloride 0.9%) 1,000 mls @ 100 mls/hr IV .Q10H [facility] Last Admin: 08/26/17 09:49 Dose: 100 mls/hr Memantine (Namenda) 5 mg PO DAILY [facility] Last Admin: 08/27/17 10:24 Dose: 5 mg Metronidazole (Flagyl) 500 mg PO TID [facility] PRN Reason: Protocol Last Admin: 08/27/17 10:25 Dose: 500 mg Mirtazapine (Remeron) 15 mg PO HS PRN PRN Reason: Insomnia Last Admin: 08/26/17 22:15 Dose: 15 mg Potassium Chloride (K-Dur 20 Meq Er Tab) 40 meq PO BRK [facility] Last Admin: 08/27/17 10:25 Dose: 40 meq Propranolol HCl (Inderal) 40 mg PO DAILY [facility] Last Admin: 08/27/17 10:24 Dose: 40 mg Quetiapine Fumarate (Seroquel) 12.5 mg PO HS [facility] PRN Reason: Protocol Last Admin: 08/26/17 22:15 Dose: 12.5 mg Thiamine HCl (Vitamin B1 Tab) 100 mg PO Q8H [facility] Last Admin: 08/27/17 05:17 Dose: Not Given - Labs Labs: 08/25/17 06:00 08/25/17 06:00 PT 12.4 SECONDS (9.4-12.5) 08/24/17 13:30 INR 1.09 (0.93-1.08) H 08/24/17 13:30 APTT 24.3 Seconds (25.1-36.5) L 08/24/17 13:30 - Constitutional Appears: Non-toxic, No Acute Distress - Head Exam Head Exam: ATRAUMATIC, NORMAL INSPECTION, NORMOCEPHALIC - Eye Exam Eye Exam: EOMI, Normal appearance, PERRL - ENT Exam ENT Exam: Mucous Membranes Moist, Normal Exam - Neck Exam Neck Exam: Normal Inspection - Respiratory Exam Respiratory Exam: Clear to Ausculation Bilateral, NORMAL BREATHING PATTERN - Cardiovascular Exam Cardiovascular Exam: REGULAR RHYTHM - GI/Abdominal Exam GI & Abdominal Exam: Soft, Normal Bowel Sounds. absent: Distended, Tenderness - Extremities Exam Extremities Exam: Full ROM, Normal Inspection - Neurological Exam Neurological Exam: Alert, Awake, Oriented x3 - Psychiatric Exam Psychiatric exam: Normal Affect, Normal Mood - Skin Skin Exam: Dry, Intact, Normal Color, Warm Assessment and Plan - Assessment and Plan (Free Text) Assessment: This is a 66yf presenting with abdominal pain and diarrhea. 1. Celiac disease-serologies positive 2. Chronic diarrhea, rectal bleeding - s/p flex sigmoidoscopy yesterday showing distal colitis of unclear etiology 3. Cdiff antigen positive 4. Hypokalemia Plan: -Continue supportive care with pain control and anti-emetics - Advanced to celiac diet which she is tolerating - Awaiting sigmoidoscopy biopsy results - Cdiff antigen positive treat with po flagyl, if no improvement can switch to po vancomycin - Ordered stat labs with CMP, Mag, CBC with very low potassium levels - If labs normal, pt can be discharged home and follow up outpt for biopsy results <Todd Adam - Last Filed: 08/27/17 14:25> Objective - Vital Signs/Intake and Output Vital Signs (last 24 hours): Temp Pulse Resp BP Pulse Ox 98.3 F 72 18 142/73 100 08/27/17 06:00 08/27/17 06:00 08/27/17 06:00 08/27/17 10:24 08/27/17 06:00 Intake and Output: 08/27/17 08/27/17 06:59 18:59 Intake Total 360 Balance 360 - Medications Medications: Current Medications Atorvastatin Calcium (Lipitor) 80 mg PO DAILY [facility] Last Admin: 08/27/17 10:24 Dose: 80 mg Clopidogrel Bisulfate (Plavix) 75 mg PO DAILY [facility] Last Admin: 08/27/17 10:24 Dose: 75 mg Digoxin (Digoxin) 0.125 mg PO 1400 [facility] Last Admin: 08/27/17 14:00 Dose: 0.125 mg Donepezil HCl (Aricept) 10 mg PO HS [facility] Last Admin: 08/26/17 22:15 Dose: 10 mg Duloxetine HCl (Cymbalta) 40 mg PO DAILY [facility] Sodium Chloride (Sodium Chloride 0.9%) 1,000 mls @ 100 mls/hr IV .Q10H [facility] Last Admin: 08/26/17 09:49 Dose: 100 mls/hr Memantine (Namenda) 5 mg PO DAILY [facility] Last Admin: 08/27/17 10:24 Dose: 5 mg Metronidazole (Flagyl) 500 mg PO TID [facility] PRN Reason: Protocol Last Admin: 08/27/17 14:00 Dose: 500 mg Mirtazapine (Remeron) 15 mg PO HS [facility] Potassium Chloride (K-Dur 20 Meq Er Tab) 40 meq PO BRK [facility] Last Admin: 08/27/17 10:25 Dose: 40 meq Propranolol HCl (Inderal) 40 mg PO DAILY [facility] Last Admin: 08/27/17 10:24 Dose: 40 mg Quetiapine Fumarate (Seroquel) 12.5 mg PO HS [facility] PRN Reason: Protocol Last Admin: 08/26/17 22:15 Dose: 12.5 mg Thiamine HCl (Vitamin B1 Tab) 100 mg PO Q8H [facility] Last Admin: 08/27/17 14:00 Dose: 100 mg - Labs Labs: 08/27/17 09:00 08/27/17 09:00 PT 12.4 SECONDS (9.4-12.5) 08/24/17 13:30 INR 1.09 (0.93-1.08) H 08/24/17 13:30 APTT 24.3 Seconds (25.1-36.5) L 08/24/17 13:30 Attending/Attestation - Attestation I have personally seen and examined this patient.: Yes I have fully participated in the care of the patient.: Yes I have reviewed all pertinent clinical information, including history, physical exam and plan: Yes Notes (Text): 08/27/17 14:25 67 year old female with h/o C. diff diarrhea, CHF, CAD, HTN, DM admitted with chronic diarrhea and blood in the stool. 1. Clostridium difficile diarrhea Plan: -sigmoidoscopy did show evidence of left sided colitis -await path, r/o microcscopic colitis or IBD -c diff antigen has been positive twice on two separate hospitalizations, but toxin never positive -continue flagyl -gluten free diet considering positive celiac serologies -improved
[2017-08-27 11:24] LABS: EOS % 0.7 % (1.5-5.0); GRAN # 1.76 (1.4-6.5); GRAN % 57.6 % (50.0-68.0); HEMOGLOBIN 8.4 g/dL (12.0-16.0); LYMPH # 1.1 (1.2-3.4); LYMPH % 36.1 % (22.0-35.0); MEAN CELL VOLUME 104.2 fl (80.0-105.0); MEAN CORPUSCULAR HEMOGLOBIN 35.4 pg (25.0-35.0); MONO # 0.2 (0.1-0.6); MONO % 5.6 % (1.0-6.0); RBC 2.37 10^6/uL (3.5-6.1); RED CELL DISTRIBUTION WIDTH 15.9 % (11.5-14.5); WHITE BLOOD COUNT 3.1 10^3/ul (4.5-11.0)
[2017-08-27 11:38] LABS: ALB/GLOB RATIO 1.2 (1.1-1.8); ALBUMIN 2.9 g/dL (3.0-4.8); ALT/SGPT 56 U/L (7-56); AST/SGOT 75 U/L (14-36); BLOOD UREA NITROGEN 9 mg/dL (7-21); GFR AFRICAN-AMERICAN > 60; GFR NON-AFRICAN AMERICAN 55; MAGNESIUM 1.5 mg/dL (1.7-2.2)
[2017-08-27] MEDS: Digoxin 125 mcg (0.125 mg) Tab PO SCH (14:00)
[2017-08-27 17:29] LABS: FOLATE 6.4 ng/mL
[2017-08-27] MEDS ORDERED: Magnesium Oxide 400 mg Tab UD PO STA (20:00)
--- NOTE | 2017-08-27 23:50 | PN ---
DATE: SUBJECTIVE: The patient is a 66-year-old female. The patient is seen and examined at the bedside. Complaining about abdominal pain. Had episodes of a couple of times of diarrhea. No acute event happened overnight. No headache or dizziness. No shortness of breath. No chest pain, no palpitation. No hematuria or hematochezia. No nausea or vomiting. REVIEW OF SYSTEMS: A 12-point review of systems as per above, otherwise, negative. OBJECTIVE: VITAL SIGNS: Temperature 98.3, pulse 72, respiratory rate 18, blood pressure 140/73, pulse oximetry 100. HEENT: Head is normocephalic and atraumatic. Eyes, PERRLA. Extraocular muscles are intact. Conjunctivae are clear. Nose is patent. Mucous membranes are moist. NECK: Supple. No carotid bruits. No JVD or thyromegaly. CHEST: Bilaterally symmetrical. HEART: S1 and S2 positive. LUNGS: Clear to auscultation. ABDOMEN: Soft. Bowel sounds present. No organomegaly. EXTREMITIES: No edema. No cyanosis. NEUROLOGIC: The patient is awake and alert, moving all 4 extremities. No focal deficit. MEDICATIONS: Lipitor, Plavix, digoxin, Aricept, Cymbalta, NS, Namenda, Flagyl, Remeron, potassium, propranolol, Seroquel, thiamine. LABORATORY DATA: White blood cells 3.3, hemoglobin 9.5, hematocrit 27.5, platelets 58. Sodium 144, potassium 2.8, BUN 11, creatinine is 1.0, glucose 90. ASSESSMENT AND PLAN: Ms. Willow Cast is a 66-year-old lady with pancytopenia, hypokalemia, has abdominal pain and diarrhea. Celiac disease etiology positive, chronic diarrhea, rectal bleeding, sigmoidoscopy showing distal colitis of the unclear etiology. Clostridium difficile antigen positive. Getting Flagyl. Hypokalemia, replaced. Getting supportive care with the pain-control and antiemetic. Advanced to celiac diet, which she is tolerating. Still waiting for sigmoidoscopy biopsy results. Continue Flagyl. If no improvement, can switch to vancomycin. Will repeat labs. Seen by Dr. Card, neurologist, because of mental status change. According to neurologist, maybe patient had dementia. CAT scan of the head done. Electrolyte replaced. started on Aricept. GI and DVT prophylaxis. Repeat labs. We will follow up. Fariha Olvera MD MTDHaris
--- NOTE | 2017-08-28 00:37 | CON ---
DATE: HISTORY OF PRESENT ILLNESS: The patient is a 66-year-old -[place]aced[place] female with a history of major depressive disorder , psychotic features, generalized anxiety disorder, rule out adjustment disorder with mixed anxiety and depression, at least 2 prior psychiatric admissions, most recently 02/13/2016 to 02/21/2016 and prior to that was greater than 10 years ago, one suicide attempt greater than 10 years ago which she did not tell anybody about at that time, no current outpatient treatment or psychiatric medication, who was admitted before to evaluate for multiple bouts of diarrheas as there was blood. During course of her hospitalization, apparently she became uncooperative, confused, demanding police and possibly . Psychiatry was called to evaluate the patient regarding her confusion. I reviewed recent notes and met with the patient at bedside and recent notes indicated that she had been upset about leaving her home and that she wants to leave because she scares someone is going to take her belongings. The cause of her concern could not be fully elucidated by staff notes and she indicated several concerns with me when I meet with her at bedside. The patient is alert and oriented to month, date, year, location and superficially oriented to circumstances. She is aware that she has diarrhea and that she is being evaluated; however, reports a lot of frustration and annoyance with the medical team and some staff members because she does not feel that her medial condition was covering the way it explained to her, specifically the infectious agent that is being considered for a diagnosis (likely referred to C. difficile) and why she requires isolation precautions as well as the various other tests that has been requested of her. The patient indicates that she is grateful to the treatment; however, would like more communication as she felt that because of her lack of information about her hospitalization, she was unfavorably snapped at by staff members who told her to restrict her movement unlike to her room. The patient was not aware that that was necessary or she was not aware the importance of isolation precautions because according to her it was never stressed to her or fully explained. The patient would like to improve. She is not asking to leave any further. She does not discuss any need to safe her home or her belongings. Mostly, she appears to be somewhat remorseful about her confrontational nature and indicates that that is not generally in her nature to be confrontational and explains that she was only upset because she was not fully apprised of her medical condition and possible diagnosis. She is not hallucinating. She denies hallucinations. She does not feel to be actively hallucinating. She is repetitive at times and she appears anxious. You know, she does report that she is depressed; however, she is not hopeless. She does not want to . She denies any suicidal thoughts. She just wants to "be treated with respect." The patient fairly good range during the course of our conversation. She is consistent, again at times repetitive. She provides information that is consistent with information reviewed from her prior admission at [facility] and not elicited during our conversation today. Regardless, she does not appear disorganized and symptoms mentioned in prior staff notes were not observed during my meeting with her of which her one-to-one was also present. PSYCHIATRIC HISTORY: As noted above, the patient had 2 prior hospitalization, most recently 02/13/2016 to 02/21/2016 at [facility] in which she was given diagnosis of major depressive disorder without psychotic features, general anxiety disorder as well as rule out adjustment disorder with mixed anxiety and depression. The patient does have a history of remote marijuana and crack use. The patient was discharged on Cymbalta 40 mg daily and Remeron 50 mg at bedtime at that time. Her most recent hospitalization prior to the 02/2016 was 10 years prior to that. The patient reports that she does have a suicide attempt by overdose, but this was greater than 10 years ago and she did not tell anybody about suicide attempt at that time. She is not currently on outpatient treatment. She is not currently taking any psychiatric medications. 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 She denies any current drug or alcohol use, but does have a very remote history of marijuana and crack use very long time ago. CURRENT MEDICATIONS: Include Cymbalta 20 mg daily, Remeron 50 mg at bedtime p.r.n., Seroquel 12.5 mg p.o. at bedtime scheduled. IMPRESSION: Rule out delirium as the patient's presentation this morning is not consisting with multiple staff notes reviewed by this provider in her chart have a waxing and waning presentation and this provider might have caught the patient in a period of increased . Major depressive disorder by history, although it is not severe at this time, generalized anxiety disorder by history. RECOMMENDATIONS: 1. I do recommend continuing Cymbalta 20 mg p.o. daily; however, we will increase dose to 40 mg as this was her prior dose. 2. We will continue with Remeron 50 mg p.o. at bedtime; however, changes to standing as this medication is not supposed to be given p.r.n. 3. Seroquel to continue 12.5 mg p.o. at bedtime as this can also help off labelled for insomnia; however, also it could help with her lability and possible hallucinations and delusions which were noted by staff last night. 4. Psychiatry will continue to follow up the patient and the case will be endorsed to Dr. Wilkinson and Livia Rosen APN, so that they may follow up with the patient, 08/28/2017. Woody Siu MD
[2017-08-28 07:47] LABS: MEAN CELL VOLUME 105.9 fl (80.0-105.0); MEAN CORPUSCULAR HEMOGLOBIN 36.1 pg (25.0-35.0); MEAN CORPUSCULAR HGB CONC 34.1 g/dl (31.0-37.0); MEAN PLATELET VOLUME 10.3 fl (7.0-11.0); RBC 3.05 10^6/uL (3.5-6.1); RED CELL DISTRIBUTION WIDTH 16.9 % (11.5-14.5); WHITE BLOOD COUNT 4.3 10^3/ul (4.5-11.0)
[2017-08-28 08:34] LABS: ALB/GLOB RATIO 1.2 (1.1-1.8); ALBUMIN 4.4 g/dL (3.0-4.8); ALT/SGPT 52 U/L (7-56); AST/SGOT 86 U/L (14-36); BLOOD UREA NITROGEN 8 mg/dL (7-21); CALCIUM 9.7 mg/dL (8.4-10.5); GFR AFRICAN-AMERICAN > 60; GFR NON-AFRICAN AMERICAN 50
--- NOTE | 2017-08-28 09:03 | PN ---
DATE: 08/25/2017 08/25/2017SUBJECTIVE: The patient is 66-year-old female. The patient is seen and examined on the bedside, looking comfortable, has diarrhea, C. difficile toxin colitis positive, started on Flagyl. She reports no episodes of nausea or vomiting. No hematuria or hematochezia. No chest pain, no fever, no chills. PHYSICAL EXAMINATION: VITAL SIGNS: Temperature is 98.8, pulse is 78, respiratory rate is 16, blood pressure is 123/72, pulse oximetry is 98. HEENT: Head: Normocephalic, atraumatic. Eyes: PERRLA. Extraocular muscles intact. Conjunctivae clear. Nose patent. NECK: Supple. No carotid bruits. No JVD or thyromegaly. CHEST: Bilaterally symmetrical. HEART: S1 and S2 positive. LUNGS: Clear to auscultation. ABDOMEN: Soft. Bowel sounds present. No organomegaly. EXTREMITIES: No edema. No cyanosis. NEUROLOGIC: The patient is awake and alert. Moving all four extremities. No focal deficit. MEDICATIONS: Lipitor, Plavix, digoxin, Cymbalta, and some potassium, Namenda, Remeron, K-Dur, Inderal, Seroquel, LABORATORY DATA: Sodium 139, potassium 3.9, BUN 12, creatinine 1.0, glucose 105. ASSESSMENT AND PLAN: a 66-year-old lady with hypokalemia, was replaced. She has Clostridium difficile toxin colitis, diarrhea; celiac disease, confirmed on serology; congestive heart failure; coronary artery disease; hypertension; diabetes mellitus. She is admitted for chronic diarrhea and starting of hematochezia and epigastric pain. PLAN: Advance diet depending on Clostridium difficile toxin positive, started on Flagyl, monitor and repeat electrolytes and continue IV hydration. Flex sigmoidoscopy done, results are pending of pathology. Repeat labs. We will follow. Fariha Olvera MD [facility]
--- NOTE | 2017-08-28 09:18 | CP.PCM.PN ---
<Leif Jackson - Last Filed: 08/28/17 09:11> Subjective - Date & Time of Evaluation Date of Evaluation: 08/28/17 Time of Evaluation: 09:11 - Subjective Subjective: GI Progress note - Leif Jackson PGY2 Patient seen and examined at bedside this morning. No acute overnight events or new complaints reported. No reports of diarrhea overnight or this morning however had 2-3 episodes of diarrhea on Monday. Tolerating gluten-free diet. Mild epigastric tenderness. Denies chest pain, palpitations, SOB, nausea, vomiting. 12point ROS as per note above otherwise negative Objective - Vital Signs/Intake and Output Vital Signs (last 24 hours): Temp Pulse Resp BP Pulse Ox 98.2 F 66 20 131/68 99 08/28/17 06:00 08/28/17 06:00 08/28/17 06:00 08/28/17 06:00 08/28/17 06:00 Intake and Output: 08/28/17 08/28/17 06:59 18:59 Intake Total 620 Balance 620 - Medications Medications: Current Medications Atorvastatin Calcium (Lipitor) 80 mg PO DAILY [facility] Last Admin: 08/27/17 10:24 Dose: 80 mg Clopidogrel Bisulfate (Plavix) 75 mg PO DAILY [facility] Last Admin: 08/27/17 10:24 Dose: 75 mg Cyanocobalamin (Vitamin B12 1000 Mcg Tab) 1,000 mcg PO DAILY [facility] Digoxin (Digoxin) 0.125 mg PO 1400 [facility] Last Admin: 08/27/17 14:00 Dose: 0.125 mg Donepezil HCl (Aricept) 10 mg PO HS [facility] Last Admin: 08/27/17 21:36 Dose: 10 mg Duloxetine HCl (Cymbalta) 40 mg PO DAILY [facility] Sodium Chloride (Sodium Chloride 0.9%) 1,000 mls @ 100 mls/hr IV .Q10H [facility] Last Admin: 08/26/17 09:49 Dose: 100 mls/hr Magnesium Oxide (Mag-Ox) 400 mg PO BID [facility] Memantine (Namenda) 5 mg PO DAILY [facility] Last Admin: 08/27/17 10:24 Dose: 5 mg Metronidazole (Flagyl) 500 mg PO TID [facility] PRN Reason: Protocol Last Admin: 08/27/17 17:37 Dose: 500 mg Mirtazapine (Remeron) 15 mg PO [facility] Last Admin: 08/27/17 21:36 Dose: 15 mg Potassium Chloride (K-Dur 20 Meq Er Tab) 40 meq PO BRK [facility] Last Admin: 08/27/17 10:25 Dose: 40 meq Potassium Chloride (K-Dur 20 Meq Er Tab) 20 meq PO DAILY [facility] Propranolol HCl (Inderal) 40 mg PO DAILY [facility] Last Admin: 08/27/17 10:24 Dose: 40 mg Quetiapine Fumarate (Seroquel) 12.5 mg PO HS [facility] PRN Reason: Protocol Last Admin: 08/27/17 21:35 Dose: 12.5 mg Thiamine HCl (Vitamin B1 Tab) 100 mg PO Q8H [facility] Last Admin: 08/28/17 05:30 Dose: 100 mg - Labs Labs: 08/28/17 07:30 08/28/17 07:30 PT 12.4 SECONDS (9.4-12.5) 08/24/17 13:30 INR 1.09 (0.93-1.08) H 08/24/17 13:30 APTT 24.3 Seconds (25.1-36.5) L 08/24/17 13:30 - Constitutional Appears: No Acute Distress - Head Exam Head Exam: ATRAUMATIC, NORMOCEPHALIC - Eye Exam Eye Exam: EOMI, PERRL - ENT Exam ENT Exam: Mucous Membranes Moist - Respiratory Exam Respiratory Exam: absent: Rales, Rhonchi, Wheezes - Cardiovascular Exam Cardiovascular Exam: RRR, +S1, +S2. absent: Gallop, Rubs - GI/Abdominal Exam GI & Abdominal Exam: Soft, Tenderness (mild epigastric). absent: Distended, Firm, Guarding, Rigid, Rebound - Neurological Exam Neurological Exam: Alert, Awake, Oriented x3 - Psychiatric Exam Psychiatric exam: Normal Affect, Normal Mood - Skin Skin Exam: Dry, Intact, Normal Color, Warm Assessment and Plan - Assessment and Plan (Free Text) Plan: 66yo female with history of cdiff colitis and celiac disease admitted for chronic diarrhea associated with abdominal pain 1. Celiac disease-serologies positive 2. Chronic diarrhea, rectal bleeding 3. Cdiff diarrhea Plan: -Continue supportive care with pain control and anti-emetics -Tolerating gluten-free diet without issue -s/p flex sigmoidoscopy showing distal colitis of unclear etiology, biopsies taken -Awaiting sigmoidoscopy biopsy results -Cdiff antigen positive, toxin negative; continue with po flagyl -Recommend patient follows up with GI as an outpatient and completes course of flagyl -No further GI intervention anticipated at this time, we will sign off this case. Please reconsult as deemed necessary. Thank you for this consult. <Eder Hair - Last Filed: 08/28/17 09:30> Objective - Vital Signs/Intake and Output Vital Signs (last 24 hours): Temp Pulse Resp BP Pulse Ox 98.2 F 66 20 131/68 99 08/28/17 09:18 08/28/17 09:18 08/28/17 09:18 08/28/17 09:18 08/28/17 09:18 Intake and Output: 08/28/17 08/28/17 06:59 18:59 Intake Total 620 Balance 620 - Medications Medications: Current Medications Atorvastatin Calcium (Lipitor) 80 mg PO DAILY [facility] Last Admin: 08/27/17 10:24 Dose: 80 mg Clopidogrel Bisulfate (Plavix) 75 mg PO DAILY [facility] Last Admin: 08/27/17 10:24 Dose: 75 mg Cyanocobalamin (Vitamin B12 1000 Mcg Tab) 1,000 mcg PO DAILY [facility] Digoxin (Digoxin) 0.125 mg PO 1400 [facility] Last Admin: 08/27/17 14:00 Dose: 0.125 mg Donepezil HCl (Aricept) 10 mg PO HS [facility] Last Admin: 08/27/17 21:36 Dose: 10 mg Duloxetine HCl (Cymbalta) 40 mg PO DAILY [facility] Sodium Chloride (Sodium Chloride 0.9%) 1,000 mls @ 100 mls/hr IV .Q10H [facility] Last Admin: 08/26/17 09:49 Dose: 100 mls/hr Magnesium Oxide (Mag-Ox) 400 mg PO BID [facility] Memantine (Namenda) 5 mg PO DAILY [facility] Last Admin: 08/27/17 10:24 Dose: 5 mg Metronidazole (Flagyl) 500 mg PO TID [facility] PRN Reason: Protocol Last Admin: 08/27/17 17:37 Dose: 500 mg Mirtazapine (Remeron) 15 mg PO HS [facility] Last Admin: 08/27/17 21:36 Dose: 15 mg Potassium Chloride (K-Dur 20 Meq Er Tab) 40 meq PO BRK [facility] Last Admin: 02/18/18 10:25 Dose: 40 meq Potassium Chloride (K-Dur 20 Meq Er Tab) 20 meq PO DAILY [facility] Propranolol HCl (Inderal) 40 mg PO DAILY [facility] Last Admin: 08/27/17 10:24 Dose: 40 mg Quetiapine Fumarate (Seroquel) 12.5 mg PO HS [facility] PRN Reason: Protocol Last Admin: 08/27/17 21:35 Dose: 12.5 mg Thiamine HCl (Vitamin B1 Tab) 100 mg PO Q8H [facility] Last Admin: 08/28/17 05:30 Dose: 100 mg - Labs Labs: 08/28/17 07:30 08/28/17 07:30 PT 12.4 SECONDS (9.4-12.5) 08/24/17 13:30 INR 1.09 (0.93-1.08) H 08/24/17 13:30 APTT 24.3 Seconds (25.1-36.5) L 08/24/17 13:30 Attending/Attestation - Attestation I have personally seen and examined this patient.: Yes I have fully participated in the care of the patient.: Yes I have reviewed all pertinent clinical information, including history, physical exam and plan: Yes Notes (Text): 08/28/17 09:28 I have seen and examined patient with GI fellow and medical practice administrator. No acute events overnight, she is seen ambulating in room, appears quite comfortable. She denies abdominal pain, nausea, vomiting, fever/chills. No bowel movements overnight or today thus far. Tolerating PO diet without difficulty. Review of vitals from today are normal. Celiac disease Rectal bleeding - s/p sigmoidoscopy showing distal left sided colitis C-difficile associated colits - Diet as tolerated, stressed gluten free adherance - Continue with antibiotic therapy to complete 10 day course - Awaiting sigmoidoscopy biopsy results - No further planned GI interventions, from GI standpoint ok to discharge home with subsequent outpatient follow up with Dr. Adam. Please reconsult as necessary, thank you.
[2017-08-28] MEDS: Potassium Chloride 20 mEq ER Tab PO SCH ×2 (10:23)
[2017-08-28] MEDS: Magnesium Oxide 400 mg Tab UD PO SCH ×2 (10:24→17:27)
--- NOTE | 2017-08-28 13:18 | PN ---
DATE: SUBJECTIVE: The patient is a 66-year-old -[place] female with history of possible dementia, history of deliriums in the past. The patient also has multiple medical issues including cardiac disease, chronic diarrhea. The patient came to the hospital for evaluation of loose bowel movements. The patient was found to have C. diff antigen positive. The patient is on contact isolation right now. The patient is very familiar to this lead technical writer from multiple consultation services on the medical side. The patient was seen and examined today. The patient confabulated that she remembered this lead technical writer, but does not remember where she met with her. The patient appears to be confused, reported that she feels that she is in [place] somewhere or [place]. The patient said that now is February 2018. The patient was aware of the day of the week. Overall, the patient was pleasant and cooperative. The patient reported that she is not depressed and denied thoughts of harming herself or others at the moment of the interview. This lead technical writer obtained collateral information from the nursing staff, RN, , reported that the patient has episodes of confusion during the sun set. The patient presented to be delusional and paranoid, wanted to be discharged yesterday, appeared to be confused. This lead technical writer reviewed vital signs. Vital signs seem to be stable. Temperature 98.2, pulse is 66, blood pressure is 125/73, respirations 20, and oxygen saturation is 99. MEDICATIONS: Reviewed. The patient is on Lipitor, Plavix, vitamin B12, digoxin, Aricept, Cymbalta 40 mg daily, magnesium oxide, Namenda, Flagyl, Remeron 15 mg at the nighttime, K-Dur, Inderal, Seroquel 12.5 mg at the nighttime will be increased to 25 mg at the nighttime, sodium chloride, and vitamin B1. LABORATORY DATA: Reviewed. WBC cells 4.3, hemoglobin and hematocrit 11.0 and 32.3 respectively. Chemistry reviewed. Potassium is low 3.3, but it is getting better to compare with the time of admission when it was 2.8. AST is 86. MENTAL STATUS EXAMINATION: The patient appears to be alert but confused where she is. The patient feels that she is in [place] or [place]. The patient does not know what month we are in. The patient is aware of the circumstances of her admission to the medical side. Eye contact is fair. Hygiene is acceptable. Mood described as "I'm not that bad." Depression is not bad at all. Affect was reactive, mood congruent. Intermittent eye contact. Speech was under productive, low volume. Thought process seems to be confabulation. Thought content, the patient has times and episodes of confusion as well as paranoid ideation and disorganized thoughts, which alternate with lucid periods. Insight and judgment seem to be impaired. Impulses are well controlled at the present moment. IMPRESSION: The patient obviously in delirium stage, which could be related to multiple episodes of diarrhea and dehydration as well as electrolytes balance. On top of that, the patient has dementia. The patient also has history of mood spectrum disorder and anxiety. PLAN: For delirium, this lead technical writer would increase the dose of Seroquel. The patient currently on one-to-one. GI is on board. Primary care physician also is seeing the patient on daily basis . Neurologist evaluated the patient on last admission. fast foods worker and case management need to be involved. The patient has a daughter who needs to participate in treatment plan. Meanwhile, continue current management. Continue Cymbalta. The patient is on contact precautions. We will follow up and advise accordingly. Thank you very much for letting me participate in care of your patient Carla Wilkinson MD
--- NOTE | 2017-08-28 15:56 | PN ---
DATE: 08/28/2017 NEUROLOGY FOLLOWUP CHIEF COMPLAINT: Follow up for change in mental status. SUBJECTIVE: The patient is seen and examined at bedside. Psychiatry note reviewed. She had obviously some delirium stage, which could be related to be multiple episodes of diarrhea and dehydration as well as electrolyte imbalance, superimposed underlying cognitive impairment. At this time, she is on Cymbalta and Seroquel which I agreed with. CAT scan of the head showed no acute intracranial abnormalities. GI is on board, C. diff antigen positive and toxin negative and recommended to continue p.o. Flagyl. No acute events overnight. PAST MEDICAL HISTORY: History of celiac disease, C. diff colitis. She has mild cognitive impairment, history of agitation and delirium in the past. REVIEW OF SYSTEMS: A 14-point review of systems is negative except as per the HPI. FAMILY HISTORY: Noncontributory. SOCIAL HISTORY: No illicit drug use, smoking or EtOH abuse. ALLERGIES: NO KNOWN DRUG ALLERGIES. MEDICATIONS: Reviewed by nurse reconciliation sheet. PHYSICAL EXAMINATION: VITAL SIGNS: Temperature 98.2, pulse rate 66, blood pressure 125/73, respiratory rate 20, oxygen saturation 99% on room air. GENERAL: Patient is sitting up in bed, in no acute distress. HEENT: Head is atraumatic, normocephalic. PERRLA. Extraocular muscles intact. NECK: Supple. No JVD, no adenopathy noted. LUNGS: Clear to auscultation. No adventitious sounds. HEART: S1, S2, normal rate and rhythm. No murmurs, rubs or gallops. ABDOMEN: Soft, nontender, nondistended. Bowel sounds present. EXTREMITIES: No clubbing, no cyanosis. Peripheral pulses are 2+ felt bilaterally. NEUROLOGIC: Patient is alert, oriented to person, place and year. Recall after 5 minutes 0/3. She thinks she is in [place]. Patient is aware of circumstances of her medical side. Eye contact is fair. Hygiene is acceptable. Mood is stable. Speech is hypophonic, but no aphasia noted. Insight and judgment seemed to be impaired. Cranial nerves II through XII intact. Motor: Moves all extremities equally. increased. Sensory: Decreased light touch and pinprick up to calves bilaterally. Decreased vibration of the toes. DTRs are 2+ throughout and 1 at both knees and ankles. Coordination and gait deferred for now. LABORATORY DATA: Sodium is 143, potassium 3.3, chloride of 104, carbon dioxide 27, BUN of 8, creatinine 1.1, random glucose 128. ASSESSMENT AND PLAN: This is a 66-year-old woman with history of cognitive impairment with history of Clostridium difficile colitis and celiac disease, admitted for chronic diarrhea associated with abdominal pain, found to have Clostridium difficile antigen positive and toxin negative, is currently on Flagyl. GI is on board, was initially consulted for altered mental status. Her altered mental status is most likely related to delirium superimposed on mild cognitive impairment. RECOMMENDATIONS: At this time, recommend: 1. Plavix 75 and Lipitor 80 mg for stroke prevention. 2. Continue Aricept 10 mg p.o. at bedtime for underlying cognitive impairment. 3. Continue with Cymbalta 40 mg p.o. daily for underlying depression as well as agitation and follow up with psychiatric management with regards to agitation, I agree with Seroquel 25 mg p.o. at bedtime. Continue vitamin 100 mg q. 8. Continue with current present medical management and monitor electrolytes and correct accordingly. Once again, she is clinically stable. Thank you for this followup. Dhaval Card MD
[2017-08-28] MEDS: Digoxin 125 mcg (0.125 mg) Tab PO SCH (17:25)
[2017-08-28] MEDS ORDERED: Oxycodone/Acetaminophen 5/325 mg Tab PO ONE (22:45)
--- NOTE | 2017-08-28 23:55 | CP.PCM.PN ---
Subjective - Date & Time of Evaluation Date of Evaluation: 08/28/17 Time of Evaluation: 23:54 - Subjective Subjective: draft back pain hx arthritis on percocet at home Rx, percocet Objective - Vital Signs/Intake and Output Vital Signs (last 24 hours): Temp Pulse Resp BP Pulse Ox 98.5 F 60 16 150/80 99 08/28/17 16:00 08/28/17 18:00 08/28/17 16:00 08/28/17 16:00 08/28/17 09:18 Intake and Output: 08/28/17 08/29/17 18:59 06:59 Intake Total 420 Balance 420 - Medications Medications: Current Medications Atorvastatin Calcium (Lipitor) 80 mg PO DAILY [facility] Last Admin: 08/28/17 10:24 Dose: 80 mg Clopidogrel Bisulfate (Plavix) 75 mg PO DAILY [facility] Last Admin: 08/28/17 10:24 Dose: 75 mg Cyanocobalamin (Vitamin B12 1000 Mcg Tab) 1,000 mcg PO DAILY [facility] Last Admin: 08/28/17 10:25 Dose: 1,000 mcg Digoxin (Digoxin) 0.125 mg PO 1400 [facility] Last Admin: 08/28/17 17:25 Dose: 0.125 mg Donepezil HCl (Aricept) 10 mg PO HS [facility] Last Admin: 08/28/17 23:19 Dose: 10 mg Duloxetine HCl (Cymbalta) 40 mg PO DAILY [facility] Last Admin: 08/28/17 10:12 Dose: 40 mg Sodium Chloride (Sodium Chloride 0.9%) 1,000 mls @ 100 mls/hr IV .Q10H [facility] Last Admin: 08/26/17 09:49 Dose: 100 mls/hr Magnesium Oxide (Mag-Ox) 800 mg PO BID [facility] Memantine (Namenda) 5 mg PO DAILY [facility] Last Admin: 08/28/17 10:24 Dose: 5 mg Metronidazole (Flagyl) 500 mg PO TID [facility] PRN Reason: Protocol Last Admin: 08/28/17 17:26 Dose: 500 mg Mirtazapine (Remeron) 15 mg PO HS [facility] Last Admin: 08/28/17 22:42 Dose: 15 mg Potassium Chloride (K-Dur 20 Meq Er Tab) 40 meq PO BRK [facility] Last Admin: 08/28/17 10:23 Dose: 40 meq Potassium Chloride (K-Dur 20 Meq Er Tab) 20 meq PO DAILY [facility] Last Admin: 08/28/17 10:23 Dose: 20 meq Propranolol HCl (Inderal) 40 mg PO DAILY [facility] Last Admin: 08/28/17 10:22 Dose: 40 mg Quetiapine Fumarate (Seroquel) 25 mg PO HS [facility] PRN Reason: Protocol Last Admin: 08/28/17 22:43 Dose: 25 mg Thiamine HCl (Vitamin B1 Tab) 100 mg PO Q8H [facility] Last Admin: 08/28/17 22:42 Dose: 100 mg - Labs Labs: 08/28/17 07:30 08/28/17 07:30 PT 12.4 SECONDS (9.4-12.5) 08/24/17 13:30 INR 1.09 (0.93-1.08) H 08/24/17 13:30 APTT 24.3 Seconds (25.1-36.5) L 08/24/17 13:30
--- NOTE | 2017-08-29 03:40 | PN ---
DATE: The patient is a 66-year-old female. SUBJECTIVE: The patient is seen and examined at the bedside. Looking comfortable, still one-to-one. No nausea, vomiting, or diarrhea. No hematuria or hematochezia. No swelling of the legs. No chest pain or palpitation. No headache or dizziness. No fever. No chills. PHYSICAL EXAMINATION: VITAL SIGNS: Temperature 98.5, pulse 60, respiratory rate 18, and blood pressure 150/80. HEENT: Head: Normocephalic, atraumatic. Eyes: PERRLA. Extraocular movements are intact. Conjunctivae clear. Nose patent. Mucous membranes are moist. NECK: Supple. No carotid bruits, JVD, or thyromegaly. CHEST: Bilaterally symmetrical. HEART: S1 and S2 positive. LUNGS: Clear to auscultation. ABDOMEN: Soft. Bowel sounds are present. No organomegaly. EXTREMITIES: No edema. No cyanosis. NEUROLOGIC: Patient is awake and alert. Moving all four extremities. No focal deficit. MEDICATIONS: Aricept, Cymbalta, digoxin, Flagyl, Inderal, K-Dur, atorvastatin, magnesium oxide, Namenda, Plavix, Remeron, Seroquel, and B12. LABORATORY DATA: White blood cells 4.3, hemoglobin 11.0, hematocrit 32.3, and platelets 98. Sodium 143, potassium 3.3, BUN 8, creatinine 1.1, glucose 128, and magnesium 1.5. ASSESSMENT AND PLAN: Ms. Willow Cast is a 66-year-old lady with leukopenia, anemia, and thrombocytopenia - specifically pancytopenia, hypokalemia getting potassium, hyperglycemia, and abnormal liver function test. She is seen by Dr. Dhaval Card. Patient has dementia and delirious. She is on one-to-one. Psychiatry is on the case also. Patient has Clostridium difficile toxic colitis, getting Flagyl and is on isolation. History of cognitive impairment, admitted with chronic diarrhea associated with abdominal pain, found to have Clostridium difficile antigen positive and toxin negative. Gastroenterology is on board. Psychiatry and Neurology is on the case for mental status. Altered mental status is most likely related to delirium superimposed on mild cognitive impairment. We will continue Plavix and Aricept. Continue Cymbalta and Seroquel. Agree with Neurology and Psychiatric consult. Patient lives alone and patient's daughter should be getting involved in mother's care plan. Social workers and bilingual patient support caseworker are working. We will follow up. Fariha Olvera MD MTDHaris
[2017-08-29 07:24] LABS: MEAN CELL VOLUME 104.7 fl (80.0-105.0); MEAN CORPUSCULAR HGB CONC 34.3 g/dl (31.0-37.0); MEAN PLATELET VOLUME 9.2 fl (7.0-11.0); RBC 2.53 10^6/uL (3.5-6.1); RED CELL DISTRIBUTION WIDTH 16.4 % (11.5-14.5); WHITE BLOOD COUNT 3.1 10^3/ul (4.5-11.0)
[2017-08-29 07:29] LABS: HEMOGLOBIN 9.1 g/dL (12.0-16.0)
[2017-08-29 08:06] LABS: BLOOD UREA NITROGEN 6 mg/dL (7-21); CALCIUM 8.9 mg/dL (8.4-10.5); GFR AFRICAN-AMERICAN > 60; GFR NON-AFRICAN AMERICAN 55
[2017-08-29] MEDS: Potassium Chloride 20 mEq ER Tab PO SCH (09:57)
[2017-08-29] MEDS: Magnesium Oxide 400 mg Tab UD PO SCH (09:59)
[2017-08-29] MEDS ORDERED: Lidocaine 5% Patch TD SCH (11:58)
[2017-08-29] MEDS: Sodium Chloride 0.9% 1,000 ML IV SCH (12:02)
[2017-08-29] MEDS: Lidocaine 5% Patch TD SCH (12:23)
[2017-08-29] MEDS: Digoxin 125 mcg (0.125 mg) Tab PO SCH (15:11)
--- NOTE | 2017-08-30 08:24 | PN ---
DATE: 08/29/2017 She is being seen today for a followup consultation. PRESENTATION: The patient is a 66-year-old -Citizen Of [place] female, seen at bedside, her daughter in attendance. The patient was admitted to the hospital on 08/24/2017, due to having diarrhea, loose stools for the last 2 months, bright red blood with bowel movements over the past 1 to 2 weeks, and increased fatigue. Consultation was ordered due to concerns about confusion. The patient does have intermittent times of confusion. She is today able to tell me the month, the year, not the exact date, which is not unusual for people who have in the hospital for a couple of days and the [place]. She also is able to talk at length about current events and symptoms that are going on in the news. I spoke with the daughter in reference to whether or not she had any concerns. The daughter indicated that the patient has just "gone down" since she was left in the hospital that she had more times of confusion and the help that she has had in the house has turned out not to be enough. Her daughter works time clock repairer as a single parent and charged to make sure that her mother is fed. She prepares meals for her to be heated, but her mother is unable to recall whether or not she ate the food or tell her what she has had and there was an episode of her actually falling down and lying on the floor for an amount of time before daughter could get to the house to get her back up. It seems that the patient's apartment is not well cared for. The patient seems to be unable to keep her apartment. Daughter does not have power of reception. It appears that this would be a good idea at this time, although she has episodes of confusion, she has episodes of lucidity. Additionally, there are concerns as to whether or not the patient would either get more help from the home or she settle with some type of placement. I spoke with the manager social responsibility in regards to this and they will follow up. PHYSICAL EXAMINATION: VITAL SIGNS: The patient's current vital signs include temperature of 98, pulse of 75, blood pressure of 159/80, respiratory rate of 20, and an O2 sat of 97%. LABORATORY DATA: Current labs include decreased white blood cells, red blood cells, hemoglobin, and hematocrit coming down from the 15th to today. Current labs are 3.1 white blood cell, red blood cell 2.53, hemoglobin 9.1, and hematocrit is 26.5, these are all down from admission. The patient's stool is negative for Salmonella, Shigella, or Campylobacter bacteria as well as positive for C. diff. MENTAL STATUS EXAM: The patient is alert and oriented x2. Her eye contact is good. Her behavior is cooperative. Her speech, rate, and volume are within normal limits. Mood is euthymic. Affect is full. Thoughts are goal directed; however, there are large areas that she is unable to discuss or unable to remember. She denies being suicidal or homicidal. Denies the presence of hallucinations, delusions, or paranoia. Her concentration and focus are adequate periods of confusion. The patient is aware she has periods of confusion. She is according to nurses' notes and her one to one readily able to be oriented and redirected and memory both short and long-term have deficits. DIAGNOSTIC IMPRESSION: Dementia with behavioral disturbance. This may be exacerbated by the fact that the patient has had multiple episodes of diarrhea, dehydration, delirium on top of the dementia. She does have a history of mood disorder and anxiety. PLAN: The patient denies being suicidal or homicidal. She appears in no imminent danger of hurting herself or others. Her current medications are Aricept 10 mg at bedtime, Cymbalta 40 mg daily, mirtazapine 15 mg one at bedtime, Seroquel 25 mg one at bedtime. These all are for behavioral or psychiatric reasons. She appears to be tolerating the medication well at this time. This case has been discussed with Dr. Wilkinson. We will continue to follow. Thank you for the consult. Livia Rosen APN
--- NOTE | 2017-08-30 08:42 | PN ---
DATE: 08/29/2017 SUBJECTIVE: The patient is a 66-year-old female. The patient was seen and examined at the bedside, still on one-to-one. Length of time discussion done with the patient's daughter. Patient is not able to do her ADLs. It is not safe to discharge her home. Patient has poor appetite. Diarrhea is getting under control. No fever, no chills. No headache, no dizziness. PHYSICAL EXAMINATION: VITAL SIGNS: Temperature 98.1, pulse 75, respiratory rate 18, blood pressure 159/80. HEENT: Head: Normocephalic, atraumatic. Eyes: PERRLA. Extraocular muscles intact. Conjunctivae clear. Nose patent. Mucous membranes moist. NECK: Supple. No carotid bruit, JVD or thyromegaly. CHEST: Bilaterally symmetrical. HEART: S1 and S2 positive. LUNGS: Clear to auscultation. ABDOMEN: Soft. Bowel sounds present. No organomegaly. EXTREMITIES: No edema. No cyanosis. NEUROLOGIC: The patient is awake and alert. Moving all four extremities. No focal deficits. Oriented x3. MEDICATIONS: Aricept, Cymbalta, digoxin, Flagyl, Inderal, potassium, lidocaine, Lipitor, magnesium oxide, Namenda, Plavix, Remeron, Seroquel, Tylenol, vitamin B12. LABORATORY DATA: White blood cells 3.1, hemoglobin 9.1, hematocrit 26.5, and platelets 85. Sodium 144, potassium 3.2, BUN 6, creatinine NOTED glucose 86, and magnesium 1.5. ASSESSMENT AND PLAN: Ms. Willow Cast is a 66-year-old lady with multiple medical problems; leukopenia, anemia, thrombocytopenia, practically pancytopenia, hyponatremia, hypokalemia - potassium given, hypochloremia, hypoglycemia, hypermagnesemia, has clostridium difficile toxin colitis - getting treatment, seen by the neurologist and psychiatrist for altered mental status, patient had cognitive impairment with history of electrolyte imbalance, history of chronic diarrhea, former clostridium difficile toxin colitis positive, currently on Flagyl. Gastroenterology on the board. Seen by psychiatrist and neurologist. Length of time discussion done with the patient's daughter. Patient lives alone. The daughter was informed that mother is not safe living alone. Patient is still on one-to-one. I decided to bring the patient in front of nursing station, so we can discontinue one-to-one. Patient is oriented x3. We will talk to the social security benefits interviewer about her placement. We will follow up. Fariha Olvera MD MTDHaris
[2017-08-30] MEDS: Potassium Chloride 20 mEq ER Tab PO SCH ×2 (09:59→10:00)
[2017-08-30] MEDS: Lidocaine 5% Patch TD SCH (10:00)
[2017-08-30] MEDS: Magnesium Oxide 400 mg Tab UD PO SCH ×2 (10:01→17:12)
[2017-08-30] MEDS: Digoxin 125 mcg (0.125 mg) Tab PO SCH (13:38)
--- NOTE | 2017-08-30 23:07 | CP.PCM.PN ---
<Tierney Gibbs - Last Filed: 08/30/17 23:03> Subjective - Date & Time of Evaluation Date of Evaluation: 08/30/17 Time of Evaluation: 10:45 - Subjective Subjective: Chief complaint: neck pain, depression 66 yr Susan female w/ history of CAD, chronic diarrhea, HTN, gastric bypass 25 yrs ago, cognitive impairment & asthma. Pt seen at the bedside. Today , she reports neck pain and depression. She denies and suicidal or homicidal ideation. hot blast worker at bedside with patient. Denies any shortness of breath , chest pain, headache, fever, chills, diarrhea, constipation, paraesthesias, or urinary changes. Objective - Vital Signs/Intake and Output Vital Signs (last 24 hours): Temp Pulse Resp BP Pulse Ox 98.5 F 71 19 109/68 98 08/30/17 16:00 08/30/17 18:00 08/30/17 16:00 08/30/17 16:00 08/30/17 16:00 Intake and Output: 08/30/17 08/31/17 18:59 06:59 Intake Total 600 300 Balance 600 300 - Medications Medications: Current Medications Acetaminophen (Tylenol 325mg Tab) 650 mg PO TID PRN PRN Reason: Pain, moderate (4-7) Last Admin: 08/29/17 12:21 Dose: 650 mg Atorvastatin Calcium (Lipitor) 80 mg PO DAILY [facility] Last Admin: 08/30/17 10:01 Dose: 80 mg Clopidogrel Bisulfate (Plavix) 75 mg PO DAILY [facility] Last Admin: 08/30/17 10:01 Dose: 75 mg Cyanocobalamin (Vitamin B12 1000 Mcg Tab) 1,000 mcg PO DAILY [facility] Last Admin: 08/30/17 10:02 Dose: 1,000 mcg Digoxin (Digoxin) 0.125 mg PO 1400 [facility] Last Admin: 08/30/17 13:38 Dose: 0.125 mg Donepezil HCl (Aricept) 10 mg PO HS [facility] Last Admin: 08/30/17 21:39 Dose: 10 mg Duloxetine HCl (Cymbalta) 40 mg PO DAILY [facility] Last Admin: 08/30/17 09:57 Dose: 40 mg Lidocaine (Lidoderm) 1 ea TD DAILY [facility] Last Admin: 08/30/17 10:00 Dose: 1 ea Magnesium Oxide (Mag-Ox) 800 mg PO BID [facility] Last Admin: 08/30/17 17:12 Dose: 800 mg Memantine (Namenda) 5 mg PO DAILY [facility] Last Admin: 08/30/17 10:01 Dose: 5 mg Metronidazole (Flagyl) 500 mg PO TID [facility] PRN Reason: Protocol Last Admin: 08/30/17 17:12 Dose: 500 mg Mirtazapine (Remeron) 15 mg PO HS [facility] Last Admin: 08/30/17 21:39 Dose: 15 mg Potassium Chloride (K-Dur 20 Meq Er Tab) 40 meq PO BRK [facility] Last Admin: 08/30/17 09:59 Dose: 40 meq Potassium Chloride (K-Dur 20 Meq Er Tab) 20 meq PO DAILY [facility] Last Admin: 08/30/17 10:00 Dose: 20 meq Propranolol HCl (Inderal) 40 mg PO DAILY [facility] Last Admin: 08/30/17 09:58 Dose: 40 mg Quetiapine Fumarate (Seroquel) 25 mg PO [facility] PRN Reason: Protocol Last Admin: 08/30/17 21:40 Dose: 25 mg Thiamine HCl (Vitamin B1 Tab) 100 mg PO 0600,1400,2200 [facility] Last Admin: 08/30/17 21:40 Dose: 100 mg - Labs Labs: 08/29/17 07:00 08/29/17 07:00 PT 12.4 SECONDS (9.4-12.5) 08/24/17 13:30 INR 1.09 (0.93-1.08) H 08/24/17 13:30 APTT 24.3 Seconds (25.1-36.5) L 08/24/17 13:30 - Constitutional Appears: Well - Head Exam Head Exam: ATRAUMATIC, NORMAL INSPECTION, NORMOCEPHALIC - Eye Exam Eye Exam: EOMI, Normal appearance, PERRL Pupil Exam: NORMAL ACCOMODATION, PERRL - ENT Exam ENT Exam: Mucous Membranes Moist, Normal Exam - Neck Exam Neck Exam: Full ROM, Normal Inspection. absent: Lymphadenopathy - Respiratory Exam Respiratory Exam: Clear to Ausculation Bilateral, NORMAL BREATHING PATTERN - Cardiovascular Exam Cardiovascular Exam: REGULAR RHYTHM, +S1, +S2. absent: Murmur - GI/Abdominal Exam GI & Abdominal Exam: Soft, Normal Bowel Sounds. absent: Tenderness - Extremities Exam Extremities Exam: Full ROM, Normal Capillary Refill, Normal Inspection. absent : Joint Swelling, Pedal Edema - Back Exam Back Exam: NORMAL INSPECTION - Neurological Exam Neurological Exam: Alert, Awake, Oriented x3 - Psychiatric Exam Psychiatric exam: Depressed - Skin Skin Exam: Dry, Intact, Normal Color, Warm Assessment and Plan (1) Vitamin B 12 deficiency Status: Acute (2) Cervical pain Status: Acute (3) C. difficile diarrhea Status: Acute (4) Anemia Status: Acute (5) Hypokalemia Status: Acute (6) MIKE (acute kidney injury) Status: Acute (7) Celiac disease/sprue Status: Acute (8) Chronic diarrhea Status: Acute (9) Major depressive disorder, recurrent severe without psychotic features Status: Acute - Assessment and Plan (Free Text) Plan: Sigmoidoscopy w. negative biospy results. IV flagyl. GI/VTE prophlyaxis. Pain management plan: lidocaine patch Consults: Neuro - Dr. Card Psych - Dr. Wilkinson Reviewed: CT head = periventricular foci hypodensity, small vessel disease, mild atrophy CXR = WNL ECG = NSR, prolonged QT <Fariha Olvera - Last Filed: 08/31/17 09:13> Objective - Vital Signs/Intake and Output Vital Signs (last 24 hours): Temp Pulse Resp BP Pulse Ox 98.1 F 63 20 129/70 100 08/31/17 08:04 08/31/17 08:04 08/31/17 08:04 08/31/17 08:04 08/31/17 08:04 Intake and Output: 08/31/17 08/31/17 06:59 18:59 Intake Total 300 120 Balance 300 120 - Medications Medications: Current Medications Acetaminophen (Tylenol 325mg Tab) 650 mg PO TID PRN PRN Reason: Pain, moderate (4-7) Last Admin: 08/29/17 12:21 Dose: 650 mg Atorvastatin Calcium (Lipitor) 80 mg PO DAILY [facility] Last Admin: 08/30/17 10:01 Dose: 80 mg Clopidogrel Bisulfate (Plavix) 75 mg PO DAILY [facility] Last Admin: 08/30/17 10:01 Dose: 75 mg Cyanocobalamin (Vitamin B12 1000 Mcg Tab) 1,000 mcg PO DAILY [facility] Last Admin: 08/30/17 10:02 Dose: 1,000 mcg Digoxin (Digoxin) 0.125 mg PO 1400 [facility] Last Admin: 08/30/17 13:38 Dose: 0.125 mg Donepezil HCl (Aricept) 10 mg PO HS [facility] Last Admin: 08/30/17 21:39 Dose: 10 mg Duloxetine HCl (Cymbalta) 40 mg PO DAILY [facility] Last Admin: 08/30/17 09:57 Dose: 40 mg Lidocaine (Lidoderm) 1 ea TD DAILY [facility] Last Admin: 08/30/17 10:00 Dose: 1 ea Magnesium Oxide (Mag-Ox) 800 mg PO BID [facility] Last Admin: 08/30/17 17:12 Dose: 800 mg Memantine (Namenda) 5 mg PO DAILY [facility] Last Admin: 08/30/17 10:01 Dose: 5 mg Metronidazole (Flagyl) 500 mg PO TID [facility] PRN Reason: Protocol Last Admin: 08/30/17 17:12 Dose: 500 mg Mirtazapine (Remeron) 15 mg PO HS [facility] Last Admin: 08/30/17 21:39 Dose: 15 mg Potassium Chloride (K-Dur 20 Meq Er Tab) 40 meq PO BRK [facility] Last Admin: 08/30/17 09:59 Dose: 40 meq Potassium Chloride (K-Dur 20 Meq Er Tab) 20 meq PO DAILY [facility] Last Admin: 08/30/17 10:00 Dose: 20 meq Propranolol HCl (Inderal) 40 mg PO DAILY [facility] Last Admin: 08/30/17 09:58 Dose: 40 mg Quetiapine Fumarate (Seroquel) 25 mg PO HS [facility] PRN Reason: Protocol Last Admin: 08/30/17 21:40 Dose: 25 mg Thiamine HCl (Vitamin B1 Tab) 100 mg PO 0600,1400,2200 [facility] Last Admin: 08/31/17 06:46 Dose: 100 mg - Labs Labs: 08/29/17 07:00 08/29/17 07:00 PT 12.4 SECONDS (9.4-12.5) 08/24/17 13:30 INR 1.09 (0.93-1.08) H 08/24/17 13:30 APTT 24.3 Seconds (25.1-36.5) L 08/24/17 13:30 Assessment and Plan - Assessment and Plan (Free Text) Plan: 66 yr Susan female w/ history of CAD, chronic diarrhea, HTN, gastric bypass 25 yrs ago, cognitive impairment & asthma. Pt seen at the bedside. Today , she reports neck pain and depression. She denies and suicidal or homicidal ideation. hot blast worker at bedside with patient. Denies any shortness of breath , chest pain, headache, fever, chills, diarrhea, constipation, paraesthesias, or urinary changes.pt is seen and examined at bed side , looking better. no more 1:1 . d/d with pt daughter and sw . about dc planing . psyche and neuro is on the case , will f/u . agreed all above , chart ,labs and meds noted ,
[2017-08-31 01:49] VITALS: RESP 20
--- NOTE | 2017-08-31 08:29 | PN ---
DATE: 08/30/2017 PRESENTATION: The patient is a 66-year-old female seen at bedside. Patient was admitted to hospital on 08/24/2017 and she was here with a history of diarrhea 6 to 7 times a day for the past couple of months with bright red blood in her stool. Patient was dehydrated. She additionally had been hospitalized for the same reason in June. Psychiatric consultation was called due to concern over patient's confusion. Patient today was seen at bedside. She is alone, her daughter is not visiting. Patient is lucid. She is very clear. She is oriented x3. She is able to share with me her feelings about being sick, recently not taking care of her apartment, being unable to do this, feeling like she is losing the ability to manage her own life. She does have periods of confusion, but she is quite lucid in between and this is definitely one of those times. We discussed the need for a POA. It is unclear whether or not or how much patient will clear due to dementia as well as her dehydration. She does have a history of depression and she is fearful for the future because she is wondering if she will do better than she is at this point in time. She is willing to allow her daughter to pursue a POA under the circumstances of that if she is not able to take care of herself, her daughter can take over, but not a general POA. She talked about the difficulties for her to give up the reins to someone else because she is always managed on her own and her difficulties sometimes when staff members either talk to her like a baby or would not answer her questions when she feels that she is entitled to an answer. She is willing to go to a subacute or have more help in the home as necessary. She would like to have the opportunity to go to rehab to see if she can get well enough to return to her home. She is fearful of that not occurring. She has a good relationship with her daughter and her granddaughter and she has some good friendships in the community, which she has not been following up with due to not feeling well. The father of her daughter 2 years ago. They had been very close throughout their life span and she indicates that is someone that she misses. VITAL SIGNS: Today include temperature of 98.6, pulse rate of 63, blood pressure of 135/68, respiratory rate of 18 and O2 sat of 99%. MENTAL STATUS: Patient is alert and oriented x3. Her eye contact is good. Her behavior is pleasant and cooperative. Speech rate and volume are within normal limits. Mood is euthymic. Affect is full. Thoughts are goal directed. She denies being suicidal or homicidal. Denies the presence of hallucinations, delusions or paranoia. Her concentration and her focus she reports are not good. She has been on Adderall in the past and found this helpful. It is contraindicated at present for, so this is not a consideration, but she indicates that she is not as alert as she could be and she had done so much better when she was on Adderall. She will really like to return to that. Her memory has some deficits, both short and correction. Sleep and appetite are reported as normal. 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 PLAN: Patient denies being suicidal or homicidal, did not appear to be in any imminent danger of hurting herself or others. Patient is willing to consider allowing her daughter to be her POA with some restrictions and will discuss this with her. She is aware that the social secretary is planning to talk with her about this, is willing to consider a subacute on discharge to see if she can get her level of functioning to improve. We will continue to follow. Thank you for the consult. Livia Rosen APN MTD[facility]
[2017-08-31] MEDS: Potassium Chloride 20 mEq ER Tab PO SCH ×2 (09:42)
[2017-08-31] MEDS: Lidocaine 5% Patch TD SCH (09:42)
[2017-08-31] MEDS: Magnesium Oxide 400 mg Tab UD PO SCH ×2 (09:44→17:23)
[2017-08-31] MEDS: Digoxin 125 mcg (0.125 mg) Tab PO SCH (14:11)
[2017-08-31 14:15] VITALS: PULSE 63
[2017-08-31 16:49] VITALS: BP 114/66; PULSE 62; TEMP 97.9; O2SAT 98
--- NOTE | 2017-08-31 17:21 | PN ---
DATE: 08/31/2017 She is being today for a followup consultation. PRESENTATION: The patient is a 66-year-old -[place] female, seen at bedside. Patient was admitted to hospital on 08/24/2017 due to having loose stools 6 to 7 times a day for the past two months and bright red blood with bowel movements. Consult was called due to concerns about patient's confusion. According to nursing notes, patient at times has periods of confusion at night. She is able to be directed and she is able to be managed easily by the nursing staff, but they must observe her. In terms of medications for her mood, she is on Aricept 10 mg at bedtime, Cymbalta 40 mg daily, Namenda 5 mg daily, Remeron 15 mg one at bedtime, and Seroquel 25 mg one at bedtime. In discussion with the patient and in review of the notes today, there has been social work followup with the patient. She and her daughter are pursuing power of title attorney for her. Additionally, patient's daughter indicated that due to her dementia, she cannot return home and live alone, so she wants to have her mother go to a custodial, which the social work lecturer is working on with her. Patient has had advancing dementia. When I spoke with the daughter yesterday, she had indicated that she was unable to up keep her home, since the daughter needs to bring food over and keep an eye on her and it is difficult with her working maritime pilot and she herself is a single parent. Patient is limitedly aware of the fact that she is having difficulty, she is aware she does have periods of confusion, but she has other periods where she is entirely lucid, able to have conversations about current events, etc. She indicates that it is difficult for her to think about giving up her independence. She does not seem to be fully aware of the extent of her confusion. CURRENT VITAL SIGNS: Today include temperature of 98.1, pulse rate of 63, blood pressure of 127/70, respiratory rate of 20 and O2 sat of 100. MENTAL STATUS: Patient is alert. She is oriented to herself and place. Her behavior is cooperative and her speech, rate and volume are within normal limits. Mood is euthymic. Affect is full. Thoughts are goal-directed. She denies being suicidal or homicidal. Denies the presence of hallucinations, delusions or paranoia. Her concentration and focus at this moment are fair. Her memory, both short and long-term has deficits. Her appetite and her sleep appeared to have normalized. DIAGNOSTIC IMPRESSION: Dementia without behavioral disturbance and delirium due to dehydration and Clostridium difficile infection. PLAN: Patient denies being suicidal or homicidal and appears in no imminent danger of hurting herself or others. Daughter is pursuing power of title attorney and custodial placement, both of which probably are to this patient's benefit. She appears to be stable on her current medication regime. I will sign off on this patient at this time. Please call if there are any further needs. This case has been discussed with Dr Wilkinson. Thank you for the consult. Livia Rosen APN [facility]
--- NOTE | 2017-09-01 02:00 | PN ---
DATE: SUBJECTIVE: Patient is a 66-year-old female. Patient is seen and examined on the bedside, looking comfortable. No nausea, vomiting, or diarrhea. No hematuria or hematochezia. No swelling of legs. No chest pain or palpitation. No headache. No dizziness. PHYSICAL EXAMINATION: VITAL SIGNS: Temperature 97.9, pulse 62, blood pressure 114/66, respiratory rate 20. HEENT: Head is normocephalic and atraumatic. Eyes, PERRLA. Extraocular muscles intact. Conjunctivae clear. Nose patent. Mucous membranes moist. NECK: Supple. No carotid bruits. No JVD or thyromegaly. CHEST: Bilaterally symmetrical. HEART: S1 and S2 positive. LUNGS: Clear to auscultation. ABDOMEN: Soft. Bowel sounds present. No organomegaly. EXTREMITIES: No edema. No cyanosis. NEUROLOGIC: The patient is awake and alert. Moving all four extremities. No focal deficit. MEDICATIONS: Aricept, Cymbalta, digoxin, Inderal, potassium (K-Dur), Lidoderm, atorvastatin, magnesium oxide, Namenda, Plavix, Remeron, Seroquel, Tylenol, vitamin B1, cyanocobalamin. LABORATORY DATA: White blood cells 3.1, hemoglobin 9.1, hematocrit 26.5, platelets 85. Sodium 144, potassium 3.2, BUN 6, creatinine 1.0, magnesium 1.5. AST 86. ASSESSMENT AND PLAN: Ms. Willow Cast is a 66-year-old lady with leukopenia, anemia, thrombocytopenia, hypokalemia, hyperchloremia, hypomagnesemia, abnormal liver function test. Seen by nurse practitioner of Psych; they signed off. According to them patient's delirium is medically induced. Patient has history of Clostridium difficile toxin colitis, dehydration improved. Neurologist saw the patient. Patient is improving, no more one-to-one. Getting Flagyl for Clostridium difficile toxin colitis. Satellite Installer saw the patient. Discussion done with social workers about patient's discharge planning. According to Physical Therapy there is no skill for patient to go to rehab. We will try either to jail or discuss with patient's daughter about discharge planning. Meanwhile, continue present treatment. Repeat labs. We will follow up. Fariha Olvera MD [facility]
== END 2017-08-31 21:30 | disposition home or self-care (01) | DRG 372 ==
LOC: ED 12:36 → ERH 15:05 → 3RNO 19:20 → 3RSO 08-29 15:42 → 3RNO 08-29 22:27
PROVIDERS: ADMIT Internal Medicine; ATTEND Internal Medicine
PROC: 0DBN8ZX Excision of Sigmoid Colon, Via Natural or Artificial Opening Endoscopic, Diagnostic (ICD-10-PCS; principal; 2017-08-24 15:00)
DX: A04.72 Enterocolitis due to Clostridium difficile, not specified as recurrent (principal); D61.818 Other pancytopenia; F33.2 Major depressive disorder, recurrent severe without psychotic features; F03.91 Unspecified dementia, unspecified severity, with behavioral disturbance; F05 Delirium due to known physiological condition; E87.1 Hypo-osmolality and hyponatremia; E86.0 Dehydration; I11.0 Hypertensive heart disease with heart failure; I50.9 Heart failure, unspecified; E83.42 Hypomagnesemia; E87.6 Hypokalemia; K90.0 Celiac disease; E11.65 Type 2 diabetes mellitus with hyperglycemia; J45.909 Unspecified asthma, uncomplicated; I25.10 Atherosclerotic heart disease of native coronary artery without angina pectoris; K64.8 Other hemorrhoids; M54.2 Cervicalgia; Z87.891 Personal history of nicotine dependence; Z95.5 Presence of coronary angioplasty implant and graft

== ENCOUNTER 2017-09-18 07:26 | Inpatient (IN) | payer MEDICARE, OTHER ==
--- NOTE | 2017-09-18 07:43 | ED PDOC ---
Arrival/HPI - General Chief Complaint: Altered Mental Status Time Seen by Provider: 09/18/17 07:33 Historian: Family (Daughter via telephone), EMS - History of Present Illness Time/Duration: Prior to Arrival Symptom Onset: Gradual Symptom Course: Unchanged Severity Level: Moderate Activities at Onset: Rest Associated Symptoms (Text): 09/18/17 08:01 Daughter reports an altered mental status beginning sometime overnight. The patient is more confused than usual. There is a history of dementia. She appeared to be talking to people who were not present. No vomiting or diarrhea. No cough congestion or URI. Patient denies headache. No chest pain palpitations or dyspnea. Past Medical History - Provider Review Nursing Documentation Reviewed: Yes - Past History Past History: No Previous - Infectious Disease Hx of Infectious Diseases: None - Tetanus Immunization Tetanus Immunization: Unknown - Past Medical History Past Medical History: No Previous - Cardiac Hx Cardiac Disorders: Yes Hx Congestive Heart Failure: Yes Hx Hypertension: Yes Other/Comment: R Leg DVT - Pulmonary Hx Respiratory Disorders: Yes Hx Asthma: Yes - Neurological Hx Neurological Disorder: No - HEENT Hx HEENT Disorder: Yes Other/Comment: glasses - Renal Hx Renal Disorder: No - Endocrine/Metabolic Hx Diabetes Mellitus Type 2: Yes - Hematological/Oncological Hx Blood Disorders: No Hx AIDS: No Hx Anemia: No Hx Cancer: No Hx Chemotherapy: No Hx Cirrhosis: No Hx Hepatitis A: No Hx Hepatitis B: No Hx Hepatitis C: No Hx Metastasis: No Hx Shingles: No Hx Unexplained Bleeding: No - Integumentary Hx Dermatological Disorder: No - Musculoskeletal/Rheumatological Hx Musculoskeletal Disorders: Yes Hx Falls: Yes - Gastrointestinal Hx Gastrointestinal Disorders: No - Genitourinary/Gynecological Hx Genitourinary Disorders: No - Psychiatric Hx Psychophysiologic Disorder: No Hx Emotional Abuse: No Hx Physical Abuse: No Hx Substance Use: No - Past Surgical History Past Surgical History: No Previous - Surgical History Hx Cardiac Catheterization: Yes Hx Coronary Stent: Yes - Anesthesia Hx Anesthesia Reactions: No Hx Malignant Hyperthermia: No - Suicidal Assessment Feels Threatened In Home Enviroment: No Family/Social History - Physician Review Nursing Documentation Reviewed: Yes Family/Social History: Unknown Family HX Smoking Status: Former Smoker Hx Alcohol Use: Yes (SOCIALLY) Hx Substance Use: No Hx Substance Use Treatment: No Allergies/Home Meds Allergies/Adverse Reactions: Allergies No Known Allergies Allergy (Verified 04/12/17 15:36) Review of Systems - Physician Review All systems were reviewed & negative as marked: Yes - Review of Systems Constitutional: absent: Fevers Respiratory: absent: SOB, Cough Cardiovascular: absent: Chest Pain, Syncope Gastrointestinal: absent: Abdominal Pain, Diarrhea, Vomiting Neurological: absent: Headache, Dizziness, Focal Weakness Physical Exam Vital Signs Temp Pulse Resp BP Pulse Ox 09/18/17 07:40 94.3 F L 89 16 124/77 100 Temperature: Hypothermic Blood Pressure: Normal Pulse: Regular Respiratory Rate: Normal Appearance: Positive for: Well-Appearing, Non-Toxic, Comfortable Pain Distress: None Mental Status: Positive for: Confused, other (Oriented 2 only) - Systems Exam Head: Present: Atraumatic, Normocephalic Pupils: Present: PERRL Extroacular Muscles: Present: EOMI Conjunctiva: Present: Normal Ears: Present: NORMAL TM, Normal Canal. No: Erythema Mouth: Present: Moist Mucous Membranes Pharnyx: No: ERYTHEMA, EXUDATE, TONSILS ENLARGED Neck: Present: Normal Range of Motion Respiratory/Chest: Present: Clear to Auscultation, Good Air Exchange, Decreased Breath Sounds. No: Respiratory Distress, Accessory Muscle Use Cardiovascular: Present: Regular Rate and Rhythm, Normal S1, S2. No: Murmurs Abdomen: Present: Normal Bowel Sounds. No: Tenderness, Distention, Peritoneal Signs, Rebound, Guarding Back: Present: Normal Inspection. No: CVA Tenderness, Midline Tenderness, Paraspinal Tenderness Upper Extremity: Present: Normal Inspection. No: Cyanosis, Edema Lower Extremity: Present: Normal Inspection. No: Edema Neurological: Present: GCS=15, CN II-XII Intact, Speech Normal, Motor Func Grossly Intact, Normal Cerebellar Funct. No: Memory Normal Skin: Present: Warm, Dry, Normal Color. No: Rashes Psychiatric: Present: Alert Medical Decision Making ED Course and Treatment: 09/18/17 Impression: Plan: -- Labs -- EKG -- Chest X-ray -- Reassess and disposition Progress Notes: 09/18/17 08:04 EKG shows normal sinus rhythm rate approximately [address] or T-wave changes 09/18/17 08:[address]: Creator : Gray Sanchez MD COMPARISON: 08/26/2017 FINDINGS: HEMORRHAGE: No intracranial hemorrhage. BRAIN: No mass effect or edema. Mild chronic microvascular ischemic changes. VENTRICLES: Unremarkable. No hydrocephalus. CALVARIUM: Unremarkable. PARANASAL SINUSES: Unremarkable as visualized. No significant inflammatory changes. MASTOID AIR CELLS: Unremarkable as visualized. No inflammatory changes. OTHER FINDINGS: None. IMPRESSION: Mild chronic microvascular ischemic changes. No acute hemorrhage. 09/18/17 09:05 CT scan of the head is read by the radiologist shows no acute findings. 09/18/17 10:35 Chest X-ray: Creator : Joel Bush MD COMPARISON: 08/24/2017 FINDINGS: LUNGS: No active pulmonary disease. PLEURA: No significant pleural effusion identified, no pneumothorax apparent. CARDIOVASCULAR: Normal. OSSEOUS STRUCTURES: No significant abnormalities. VISUALIZED UPPER ABDOMEN: Normal. OTHER FINDINGS: None. IMPRESSION: No active disease. 09/18/17 10:39 Discussed in detail with , who will admit. She requests consult with infectious disease and psychiatry. Orders have been placed for her. Patient is hypothermic with confusion and slightly elevated lactic acid. Possible sepsis. - Lab Interpretations Lab Results: 09/18/17 08:50 09/18/17 08:50 Lab Results 09/18/17 09:30: Urine Color Yellow, Urine Appearance Clear, Urine pH 5.0, Ur Specific [place] >= 1.030, Urine Protein 30 H, Urine Glucose (UA) Negative, Urine Ketones Negative, Urine Blood Trace-intact H, Urine Nitrate Negative, Urine Bilirubin Small H, Urine Urobilinogen 0.2, Ur Leukocyte Esterase Negative , Urine RBC 2 - 5, Urine WBC 0 - 2, Ur Epithelial Cells 1 - 3, Amorphous Sediment Moderate, Urine Bacteria Mod 09/18/17 08:50: pO2 151 H, VBG pH 7.37, VBG pCO2 40.0, VBG HCO3 23.1, VBG Total CO2 24.3, VBG O2 Sat (Calc) 99.8 H, VBG Base Excess -2.0 L, VBG Potassium 3.8, Sodium 137.0, Chloride 109.0 H, Glucose 100, Lactate 2.4 H, FiO2 21.0, Venous Blood Potassium 3.8 09/18/17 08:50: Alcohol, Quantitative < 10 09/18/17 08:50: Ammonia 17 09/18/17 08:50: Sodium 138, Chloride 106, Potassium 3.7, Carbon Dioxide 24, Anion Gap 13, BUN 12, Creatinine 1.1, Est GFR ( Amer) > 60, Est GFR (Non- Af Amer) 50, Random Glucose 100, Calcium 9.1, Phosphorus 4.8 H, Magnesium 2.0, Total Bilirubin 0.4, AST 35, ALT 30, Alkaline Phosphatase 83, Lactate Dehydrogenase 472, Total Creatine Kinase 54, Troponin I < 0.01 D, Total Protein 6.8, Albumin 3.6, Globulin 3.1, Albumin/Globulin Ratio 1.2 09/18/17 08:50: PT 11.6, INR 1.01, APTT 27.9 09/18/17 08:50: WBC 3.4 L, RBC 2.97 L, Hgb 10.0 L, Hct 30.3 L, MCV 102.0, MCH 33.7, MCHC 33.0, RDW 15.0 H, Plt Count 161, MPV 9.2, Gran % 53.3, Lymph % (Auto ) 40.6 H, [place] % (Auto) 5.8, Eos % (Auto) 0.3 L, Baso % (Auto) 0.0, Gran # 1.82 , Lymph # (Auto) 1.4, [place] # (Auto) 0.2, Eos # (Auto) 0.0, Baso # (Auto) 0.00 09/18/17 07:35: POC Glucose (mg/dL) 103 - RAD Interpretation Radiology Orders: 09/18/17 07:46 HEAD W/O CONTRAST [CT] Stat 09/18/17 07:47 CHEST PORTABLE [RAD] Stat Chest one view shows no infiltrate or effusion or cardiomegaly Deployment Engineer: ED Physician - Medication Orders Current Medication Orders: Sodium Chloride (Sodium Chloride 0.9%) 1,000 mls @ 500 mls/hr IV ONCE ONE Stop: 09/18/17 11:23 Last Admin: 09/18/17 09:34 Dose: 500 mls/hr eMAR Start Stop Document 09/18/17 09:34 HP (Rec: 09/18/17 09:34 HP [id number]) Intravenous Solution Start Date 09/18/17 Start Time 09:34 End Date 09/18/17 End time 11:34 Total Infusion Time 120 Ceftriaxone Sodium (Rocephin 1 Gram Ivpb) 1 gm in 100 mls @ 200 mls/hr IVPB STAT STA PRN Reason: Protocol Stop: 09/18/17 11:07 Disposition/Present on Arrival - Present on Arrival Any Indicators Present on Arrival: No History of DVT/PE: Yes History of Uncontrolled Diabetes: No Urinary Catheter: No History of Decub. Ulcer: No - Disposition Have Diagnosis and Disposition been Completed?: Yes Diagnosis: Dementia, Altered mental status, Hypothermia, Lactic acidosis, Sepsis Disposition: HOSPITALIZED Disposition Time: 10:44 Patient Plan: Observation Condition: GOOD Discharge Instructions (ExitCare): Sepsis (ED) Referrals: Shagufta Barreto MD [Primary Care Provider] - Follow up with primary Forms: Room[employer] (Belarusian)
[2017-09-18 07:48] VITALS: BMI 20.9
--- NOTE | 2017-09-18 08:50 | CT ---
PROCEDURE: CT HEAD WITHOUT CONTRAST. HISTORY: ams COMPARISON: 08/26/2017 TECHNIQUE: Axial computed tomography images were obtained through the head/brain without intravenous contrast. Radiation dose: Total exam DLP = mGy-cm. This CT exam was performed using one or more of the following dose reduction techniques: Automated exposure control, adjustment of the mA and/or kV according to patient size, and/or use of iterative reconstruction technique. FINDINGS: HEMORRHAGE: No intracranial hemorrhage. BRAIN: No mass effect or edema. Mild chronic microvascular ischemic changes. VENTRICLES: Unremarkable. No hydrocephalus. CALVARIUM: Unremarkable. PARANASAL SINUSES: Unremarkable as visualized. No significant inflammatory changes. MASTOID AIR CELLS: Unremarkable as visualized. No inflammatory changes. OTHER FINDINGS: None. IMPRESSION: Mild chronic microvascular ischemic changes. No acute hemorrhage.
[2017-09-18 09:14] LABS: VENOUS BLOOD GAS PO2 151 mm/Hg (30-55); VENOUS BLOOD PH 7.37 (7.32-7.43)
[2017-09-18 09:15] LABS: EOS % 0.3 % (1.5-5.0); GRAN # 1.82 (1.4-6.5); GRAN % 53.3 % (50.0-68.0); LYMPH # 1.4 (1.2-3.4); LYMPH % 40.6 % (22.0-35.0); MEAN CORPUSCULAR HEMOGLOBIN 33.7 pg (25.0-35.0); MEAN PLATELET VOLUME 9.2 fl (7.0-11.0); MONO # 0.2 (0.1-0.6); MONO % 5.8 % (1.0-6.0); RBC 2.97 10^6/uL (3.5-6.1); WHITE BLOOD COUNT 3.4 10^3/ul (4.5-11.0)
[2017-09-18] MEDS ORDERED: Sodium Chloride 0.9% 1,000 ML IV ONE (09:24)
[2017-09-18 09:28] LABS: ALB/GLOB RATIO 1.2 (1.1-1.8); ALBUMIN 3.6 g/dL (3.0-4.8); ALT/SGPT 30 U/L (7-56); AST/SGOT 35 U/L (14-36); BLOOD UREA NITROGEN 12 mg/dL (7-21); CALCIUM 9.1 mg/dL (8.4-10.5); GFR AFRICAN-AMERICAN > 60; GFR NON-AFRICAN AMERICAN 50
[2017-09-18 09:29] LABS: INR 1.01 (0.93-1.08); PARTIAL THROMBOPLASTIN TIME 27.9 Seconds (25.1-36.5); PROTHROMBIN TIME 11.6 SECONDS (9.4-12.5)
[2017-09-18 09:36] LABS: TROPONIN I < 0.01 ng/mL
[2017-09-18 09:56] LABS: URINE BILIRUBIN SMALL (NEGATIVE); URINE BLOOD TRACE-INTACT (NEGATIVE); URINE GLUCOSE (UA) NEGATIVE (NEGATIVE); URINE LEUKOCYTE ESTERASE NEGATIVE Leu/uL (NEGATIVE); URINE PROTEIN 30 mg/dL (<30 mg/dL); URINE UROBILINOGEN 0.2 E.U./dL (<1 E.U./dL)
[2017-09-18 09:58] LABS: URINE COLOR YELLOW (YELLOW)
[2017-09-18 09:59] LABS: URINE APPEARANCE CLEAR (CLEAR)
[2017-09-18 10:07] LABS: URINE BACTERIA MOD (NEG); URINE WBC 0 - 2 /hpf (0-6)
[2017-09-18 10:08] LABS: URINE AMORPHOUS SEDIMENT MODERATE
--- NOTE | 2017-09-18 10:27 | RAD ---
HISTORY: ams COMPARISON: 08/24/2017 FINDINGS: LUNGS: No active pulmonary disease. PLEURA: No significant pleural effusion identified, no pneumothorax apparent. CARDIOVASCULAR: Normal. OSSEOUS STRUCTURES: No significant abnormalities. VISUALIZED UPPER ABDOMEN: Normal. OTHER FINDINGS: None. IMPRESSION: No active disease.
[2017-09-18] MEDS ORDERED: cefTRIAXone 1 gm 1 GM/100 ML BAG IVPB STA (10:38)
[2017-09-18 11:15] LABS: VENOUS BLOOD GAS BASE EXCESS -2.2 mmol/L (0.0-2.0); VENOUS BLOOD GAS PO2 280 mm/Hg (30-55); VENOUS BLOOD PH 7.36 (7.32-7.43)
[2017-09-18] MEDS ORDERED: Vancomycin 1gm in NS 250ml 1 GM/250 ML BAG IVPB STA (11:22)
[2017-09-18] MEDS ORDERED: Pneumococcal 23-Valent Vaccine IM ONE (13:27)
[2017-09-18] MEDS ORDERED: Influenza Vaccine 60 mcg/0.5 mL SYR (4YR UP) IM ONE (13:27)
--- NOTE | 2017-09-18 13:52 | CP.PCM.CON ---
History of Present Illness - History of Present Illness History of Present Illness: 66 year old female with PMH of HTN, CAD S/P PCI, history of chronic diarrhea, cognitive impairment, asthma, history of right leg DVT, DM, was apparently brought in to [facility] by the daughter after the patient was apparently noted to have some confusion. There was no note of falls, no loss of consciousness, no vomiting, no bowel or bladder incontinence, no fevers, no diarrhea. The patient is currently more awake, alert and not in distress. In the ED, the patient was noted to have hypothermia and some leukopenia and Infectious diseases consult is requested to further evaluate and manage. Currently the patient is awake and alert, talking about her chronic diarrhea and how it apparently improved with a gluten-free diet. She denies headache, no blurring of vision, no chest pain, no SOB, no cough or colds, no sore throat, no abdominal pain, no diarrhea, no dysuria, no dizziness. Review of Systems - Review of Systems All systems: reviewed and no additional remarkable complaints except (as per HPI ) Past Patient History - Infectious Disease Hx of Infectious Diseases: None - Tetanus Immunizations Tetanus Immunization: Unknown - Past Medical History & Family History Past Medical History?: Yes - Past Social History Smoking Status: Former Smoker - CARDIAC Hx Cardiac Disorders: Yes Hx Congestive Heart Failure: Yes Hx Hypertension: Yes Other/Comment: R Leg DVT - PULMONARY Hx Respiratory Disorders: Yes Hx Asthma: Yes - NEUROLOGICAL Hx Neurological Disorder: No - HEENT Hx HEENT Problems: Yes Other/Comment: glasses - RENAL Hx Chronic Kidney Disease: No - ENDOCRINE/METABOLIC Hx Diabetes Mellitus Type 2: Yes - HEMATOLOGICAL/ONCOLOGICAL Hx Blood Disorders: No Hx AIDS: No Hx Anemia: No Hx Cancer: No Hx Chemotherapy: No Hx Cirrhosis: No Hx Hepatitis A: No Hx Hepatitis B: No Hx Hepatitis C: No Hx Metastesis: No Hx Shingles: No Hx Unexplained Bleeding: No - INTEGUMENTARY Hx Dermatological Problems: No - MUSCULOSKELETAL/RHEUMATOLOGICAL Hx Musculoskeletal Disorders: Yes Hx Falls: Yes - GASTROINTESTINAL Hx Gastrointestinal Disorders: No - GENITOURINARY/GYNECOLOGICAL Hx Genitourinary Disorders: No - PSYCHIATRIC Hx Psychophysiologic Disorder: No Hx Emotional Abuse: No Hx Physical Abuse: No Hx Substance Use: No - SURGICAL HISTORY Hx Cardiac Catheterization: Yes Hx Coronary Stent: Yes - ANESTHESIA Hx Anesthesia Reactions: No Hx Malignant Hyperthermia: No Meds Allergies/Adverse Reactions: Allergies Allergy/AdvReac Type Severity Reaction Status Date / Time No Known Allergies Allergy Verified 04/12/17 15:36 - Medications Medications: Current Medications Sodium Chloride (Sodium Chloride 0.9%) 1,000 mls @ 500 mls/hr IV ONCE ONE Stop: 09/18/17 11:23 Last Admin: 09/18/17 09:34 Dose: 500 mls/hr Physical Exam - Constitutional Appears: Non-toxic, Chronically Ill - Head Exam Head Exam: NORMAL INSPECTION - ENT Exam ENT Exam: Mucous Membranes Moist - Neck Exam Neck exam: Negative for: Lymphadenopathy, Meningismus - Respiratory Exam Respiratory Exam: Decreased Breath Sounds. absent: Rales, Rhonchi - Cardiovascular Exam Cardiovascular Exam: +S1, +S2 - GI/Abdominal Exam GI & Abdominal Exam: Soft. absent: Tenderness Results - Vital Signs Recent Vital Signs: Last Vital Signs Temp 98.0 F 09/18/17 10:56 Pulse 103 H 09/18/17 10:56 Resp 18 09/18/17 10:56 BP 136/89 09/18/17 10:56 Pulse Ox 100 09/18/17 10:56 - Labs Result Diagrams: 09/18/17 08:50 09/18/17 08:50 Labs: Laboratory Results - last 24 hr 09/18/17 11:00 pO2 280 H VBG pH 7.36 VBG pCO2 41.0 VBG HCO3 23.2 VBG Total CO2 24.5 VBG O2 Sat (Calc) 100.4 H VBG Base Excess -2.2 L VBG Potassium 3.8 Sodium 137.0 Chloride 111.0 H Glucose 80 Lactate 1.4 FiO2 21.0 Venous Blood Potassium 3.8 Assessment & Plan - Assessment and Plan (Free Text) Plan: Assessment systemic inflammatory response syndrome, consider acute stress response, R/O sepsis HTN CAD S/P PCI history of chronic diarrhea cognitive impairment asthma history of right leg DVT DM Plan gave a dose of IV Vanco and started pending blood, urine cx, PCT, CXR will monitor clinically
--- NOTE | 2017-09-18 14:36 | CARD ---
APPROVED REPORT EKG Measurement Heart [id number] <Conclusion> Normal sinus rhythm Mildly prolonged QTc
[2017-09-18] MEDS: Cefepime 1gm in NS 100ml 1 GM/100 ML BAG IVPB SCH ×2 (15:10→21:15)
--- NOTE | 2017-09-19 03:37 | CON ---
DATE: 09/18/2017 She is being seen today for a consultation. PRESENTATION: The patient is a 66-year-old female seen at bedside. She was admitted to hospital on 09/18/2017 due to altered mental status beginning last evening. She does have a history of dementia, but is more confused than usual. She, according to the daughter, was hallucinating, talking to people who were not present, seeing people on the couch that were not there. This is brand new behavior for her. She was admitted for dementia, altered mental status, hypothermia, and lactic acidosis and sepsis on the medical side. Psychiatric consult was called as a routine. Patient has been in the hospital quite a few times in the last year. She was in on 04/13/2016 for hypokalemia, prolonged QTc, and diarrhea; again on 07/31/2017, again on 08/24/2017 and again today. This patient is known to Psychiatry. She does have a history of major depressive disorder with psychotic features, generalized anxiety disorder. She has had at least two prior psychiatric admissions, and she has a history of at least one suicide attempt over 10 years ago. She has not been seen outpatient for treatment or taking any psychiatric medication outpatient. Since she has been in hospital; for the last two admissions, low doses of benzodiazepines had been tried with Seroquel at night, also mirtazapine has been tried. Due to the fact that she is hallucinating more. I have ordered Seroquel 12.5 mg one p.o. b.i.d. routinely with a p.r.n. of benzodiazepines of Ativan 0.5 mg p.o. or IM q. 6 hours as well as Geodon 20 mg q. 6 hours p.r.n. agitation. Because the patient is evidently really restless in speaking with the nurse, just the short time she has been on the floor, she has wandered out of her room multiple times. She actually remembers me and is pleased to talk with me, does not remember exactly who I am but has a positive remembrance of the time that I spent with her, so that seemed to sooth her a bit, but she does not remember whether or not she has eaten. She is disoriented other than her name. She, since her last admission, has been living with her daughter and her granddaughter who is 13 years old. Her daughter is a single parent and does need to go to work. One of the concerns on her last admission was that her daughter pursue a power of attorney at law due to the fact that the patient's mental status seems to be going downhill and she was working on that; however, there is no documentation in the chart that this has actually taken place. Additionally, the other recommendation was the patient go to an [facility] or a group home. The daughter has taken her home and has tried to handle the situation, but it appears that this is going to be a difficult situation for her to go on with. VITAL SIGNS: Patient's current vital signs include temperature of 98, pulse of 103, blood pressure of 136/89, respiratory rate of 18, and an O2 sat of 100%. LABORATORY DATA: There are no current labs of yet. MENTAL STATUS EXAMINATION: The patient is alert, but oriented only to her name. Her speech rate and volume are within normal limits, mood is euthymic. Her affect is full, thoughts are goal directed. At the moment, however, I questioned the patient as to whether or not she has been struggling with confusion, and she indicated that yes, the confusion has become pretty bad recently and she is very concerned about it. She feels as if she only got some Adderall that that might be helpful to her. Patient denies being suicidal or homicidal. She denies the presence of hallucinations at this time. Denies the presence of delusions or paranoia. Her concentration and focus are scattered. Her memory both short and terminal carman have deficits. Her appetite and her sleep, she indicates have not been right and she looks unwell and has have dark circles around her eyes at this time. 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 PLAN: Patient denies being suicidal or homicidal, and there is nothing in her behavior to indicate that she is suicidal or homicidal at this time. She indicates that she is suffering with some confusion. There have been reports of her hallucinating, and certainly she seems to be more agitated and confused than she has been in the past. Due to the presentation, I have ordered Seroquel 12.5 mg p.o. b.i.d. along with Ativan 0.5 mg p.o. q. 8 hours p.r.n. agitation p.o. or IM actually, and there is Geodon 20 mg IM every 6 hours for agitation as well. Psychiatry will continue to follow. Thank you for the consult. Livia Rosen APN Carla Wilkinson MD [facility]
--- NOTE | 2017-09-19 09:24 | HP ---
CHIEF COMPLAINT: Altered mental status. HISTORY OF PRESENT ILLNESS: Ms. Willow Cast is a 66 years old lady well known to me from previous 2 admissions and came in my office, came with the daughter, with altered mental status. The patient is more confused than the usual. As per daughter, there is a history of dementia, so she appeared to be talking to the people who are not present, having hallucinations or delusions. No vomiting, no diarrhea. No cough, no congestion, upper respiratory tract infection, no fever, no chills. No headache. No hematuria, no hematochezia. PAST MEDICAL HISTORY: Congestive heart failure, hypertension, asthma, diabetes mellitus, dementia, history of fall, history of cardiac catheterization, coronary artery stent. FAMILY HISTORY: Father and mother, not contributory HABITS: History of former smoking, not now smoking as per family. Alcohol socially. Substance abuse, no. ALLERGIES: THE PATIENT IS NOT ALLERGIC TO ANY MEDICATIONS. HOME MEDICATIONS: Reviewed by me. REVIEW OF SYSTEMS: The patient looks like altered mental status, not on the baseline. No fever, no shortness of breath. No chest pain, no syncope. No abdominal pain, no diarrhea, no nausea or vomiting. No headache, no dizziness, no focal weakness. PHYSICAL EXAMINATION VITAL SIGNS: Temperature 98.5, pulse 70, blood pressure 130/78, respiratory rate 20. HEENT: Head normocephalic, atraumatic. Eyes, PERRLA. Extraocular muscles intact. Conjunctivae clear. Nose patent. Mucosus membrane moist. NECK: Supple, no carotid bruit. No JVD or thyromegaly. CHEST: Bilaterally symmetrical. HEART: S1, S2 positive. LUNGS: Clear to auscultation. ABDOMEN: Soft, bowel sounds present. No organomegaly. EXTREMITIES: No edema, no cyanosis. NEUROLOGICAL: The patient is awake, alert, moving all 4 extremities, no focal deficits. Medications given in the hospital, reviewed by me. LABORATORY DATA: White blood cell is 3.4, hemoglobin 10.0, hematocrit 30.3, platelets 161,000. Sodium 138, potassium 3.7, BUN 12, creatinine 1.1, glucose 100, phosphorus 4.8, prolactin level less than 0.05. ASSESSMENT AND PLAN: Ms. Willow Cast is a 66-year-old female with leukopenia, anemia, hyperphosphatemia, proteinuria, hematuria, urinary tract infection, alcohol level is less than 10, came with altered mental status. CAT scan of the head done. Chest x-ray done, reviewed by me. Seen by infectious Disease, Dr. Keven Villaseñor. The patient has systemic inflammatory response syndrome, consider acute stress response, rule out sepsis; hypertension; coronary artery disease; history of coronary artery stent; history of chronic diarrhea; cognitive impairment; asthma; history of right leg deep venous thrombosis; diabetes mellitus. The patient got dose of vancomycin. Blood culture and urine culture are pending. Appreciate Dr. Keven Villaseñor's input. Recall consult with Dr. Carla Wilkinson, psychiatrist. GI and DVT prophylaxis. Repeat labs, start with old medications. We will follow. Fariha Olvera MD MTDHaris
[2017-09-19] MEDS: Potassium Chloride 20 mEq ER Tab PO SCH (10:21)
[2017-09-19] MEDS: Cefepime 1gm in NS 100ml 1 GM/100 ML BAG IVPB SCH ×2 (10:22→21:35)
[2017-09-19] MEDS: Digoxin 125 mcg (0.125 mg) Tab PO SCH (14:30)
--- NOTE | 2017-09-19 17:36 | CP.PCM.PN ---
Subjective - Date & Time of Evaluation Date of Evaluation: 09/19/17 Time of Evaluation: 12:30 - Subjective Subjective: No fevers, not in distress. Objective - Vital Signs/Intake and Output Vital Signs (last 24 hours): Temp Pulse Resp BP Pulse Ox 98.5 F 73 18 135/84 100 09/19/17 07:34 09/19/17 07:34 09/19/17 07:34 09/19/17 07:34 09/19/17 07:34 Intake and Output: 09/19/17 09/19/17 06:59 18:59 Intake Total 0 Balance 0 - Medications Medications: Current Medications Atorvastatin Calcium (Lipitor) 80 mg PO DAILY JOANNE Clopidogrel Bisulfate (Plavix) 75 mg PO DAILY JOANNE Digoxin (Digoxin) 0.125 mg PO 1400 JOANNE Donepezil HCl (Aricept) 10 mg PO HS JOANNE Cefepime HCl (Maxipime 1gm) 1 gm in 100 mls @ 100 mls/hr IVPB Q12 JOANNE PRN Reason: Protocol Last Admin: 09/18/17 21:15 Dose: 100 mls/hr Lorazepam (Ativan) 0.5 mg PO Q8H PRN; Protocol PRN Reason: Agitation Lorazepam (Ativan) 0.5 mg IM Q8H PRN; Protocol PRN Reason: Agitation Memantine (Namenda) 5 mg PO DAILY [facility] Potassium Chloride (K-Dur 20 Meq Er Tab) 40 meq PO BRK JOANNE Propranolol HCl (Inderal) 40 mg PO DAILY JOANNE Quetiapine Fumarate (Seroquel) 12.5 mg PO BID JOANNE PRN Reason: Protocol Last Admin: 09/18/17 17:35 Dose: 12.5 mg Ziprasidone (Geodon Inj) 20 mg IM Q6H PRN; Protocol PRN Reason: Agitation - Labs Labs: PT 11.6 SECONDS (9.4-12.5) 09/18/17 08:50 INR 1.01 (0.93-1.08) 09/18/17 08:50 APTT 27.9 Seconds (25.1-36.5) 09/18/17 08:50 - Constitutional Appears: Chronically Ill - Head Exam Head Exam: NORMAL INSPECTION - Neck Exam Neck Exam: absent: Meningismus - Respiratory Exam Respiratory Exam: Decreased Breath Sounds - Cardiovascular Exam Cardiovascular Exam: +S1, +S2 - GI/Abdominal Exam GI & Abdominal Exam: Soft. absent: Tenderness Assessment and Plan - Assessment and Plan (Free Text) Plan: Assessment systemic inflammatory response syndrome, consider acute stress response, R/O sepsis HTN CAD S/P PCI history of chronic diarrhea cognitive impairment asthma history of right leg DVT DM Plan gave a dose of IV Vanco and continue Cefepime day 2 pending final blood, urine cx, PCT, CXR results - if negative will d/c antibiotics will continue to monitor clinically
--- NOTE | 2017-09-19 23:40 | PN ---
DATE: SUBJECTIVE: Patient is a 66-year-old female. The patient is seen and examined at bedside, looking comfortable, do not look like septic, but still getting attacks of confusion. As per patient, at home, she was seeing people that are not supposed to be in her home, wandering around near her bed and patient is living alone. Working on medical diagnosis and if her blood cultures are negative, then we do not have any medical reason to be delirious at home, then we will transfer patient to the Psych Department, appreciated Dr. Villaseñor's and Psychiatry input. PHYSICAL EXAMINATION: VITAL SIGNS: Temperature 98.4, pulse 74, blood pressure 117/75, respiratory rate 18. HEENT: Head normocephalic, atraumatic. Eyes: PERRLA. Extraocular muscles intact. Conjunctivae clear. Nose patent. Mucous membranes moist. NECK: Supple. No carotic bruits. No thyromegaly. CHEST: Bilaterally symmetrical. HEART: S1 and S2 positive. LUNGS: Clear to auscultation. ABDOMEN: Soft, bowel sounds present. No organomegaly. EXTREMITIES: No edema, no cyanosis. NEUROLOGICAL: Patient is awake and alert, moving all 4 extremities, no focal deficits. MEDICATIONS: Aricept, Ativan, digoxin, Geodon, Inderal, Lipitor, Maxipime, Namenda, Plavix, Seroquel. LABORATORY DATA: White blood cell is 3.4, hemoglobin 10.0, hematocrit 30.3, platelets 151. Sodium 138, potassium 3.7, BUN 12, creatinine 1.1, phosphorus 4.8. ASSESSMENT AND PLAN: Ms. Willow Cast is a 66-year-old lady with leukopenia, anemia, hyperphosphatemia, proteinuria, hematuria, came with delirium, altered mental status. CAT scan is negative. ID is on the case, getting antibiotics, but up to now cultures are negative and as per ID, cultures are negative. We will discontinue the antibiotics. Blood pressure is under control. Patient is like depressed and sometime delirious, living alone, is not able to live alone. We will discuss with the family, appreciated psychiatrist's input, repeat labs. We will follow up. Fariha Olvera MD
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
[2017-09-20] MEDS: Potassium Chloride 20 mEq ER Tab PO SCH (09:40)
--- NOTE | 2017-09-20 16:47 | CP.PCM.PN ---
Subjective - Date & Time of Evaluation Date of Evaluation: 09/20/17 Time of Evaluation: 12:20 - Subjective Subjective: No fevers, not in distress, no cough, no diarrhea. Objective - Vital Signs/Intake and Output Vital Signs (last 24 hours): Temp Pulse Resp BP Pulse Ox 98.4 F 74 18 117/75 97 09/19/17 14:00 09/19/17 14:00 09/19/17 14:00 09/19/17 14:00 09/19/17 14:00 Intake and Output: 09/20/17 09/20/17 06:59 18:59 Intake Total 120 Balance 120 - Medications Medications: Current Medications Atorvastatin Calcium (Lipitor) 80 mg PO DAILY [facility] Last Admin: 09/19/17 10:21 Dose: 80 mg Clopidogrel Bisulfate (Plavix) 75 mg PO DAILY [facility] Last Admin: 09/19/17 10:22 Dose: 75 mg Digoxin (Digoxin) 0.125 mg PO 1400 [facility] Last Admin: 09/19/17 14:30 Dose: 0.125 mg Donepezil HCl (Aricept) 10 mg PO HS [facility] Last Admin: 09/19/17 21:35 Dose: 10 mg Lorazepam (Ativan) 0.5 mg PO Q8H PRN; Protocol PRN Reason: Agitation Lorazepam (Ativan) 0.5 mg IM Q8H PRN; Protocol PRN Reason: Agitation Memantine (Namenda) 5 mg PO DAILY [facility] Last Admin: 09/19/17 10:21 Dose: 5 mg Potassium Chloride (K-Dur 20 Meq Er Tab) 40 meq PO BRK [facility] Last Admin: 09/19/17 10:21 Dose: 40 meq Propranolol HCl (Inderal) 40 mg PO DAILY [facility] Last Admin: 09/19/17 10:20 Dose: 40 mg Quetiapine Fumarate (Seroquel) 12.5 mg PO BID [facility] PRN Reason: Protocol Last Admin: 09/19/17 18:31 Dose: 12.5 mg Ziprasidone (Geodon Inj) 20 mg IM Q6H PRN; Protocol PRN Reason: Agitation - Labs Labs: PT 11.6 SECONDS (9.4-12.5) 09/18/17 08:50 INR 1.01 (0.93-1.08) 09/18/17 08:50 APTT 27.9 Seconds (25.1-36.5) 09/18/17 08:50 - Constitutional Appears: Chronically Ill - Head Exam Head Exam: NORMAL INSPECTION - ENT Exam ENT Exam: Mucous Membranes Moist - Neck Exam Neck Exam: absent: Meningismus - Respiratory Exam Respiratory Exam: Decreased Breath Sounds - Cardiovascular Exam Cardiovascular Exam: +S1, +S2 - GI/Abdominal Exam GI & Abdominal Exam: Soft. absent: Tenderness Assessment and Plan - Assessment and Plan (Free Text) Plan: Assessment systemic inflammatory response syndrome, consider acute stress response, no evidence of sepsis identified HTN CAD S/P PCI history of chronic diarrhea cognitive impairment asthma history of right leg DVT DM Plan cultures have been negative, PCT is <0.05, CXR is negative - will d/c antibiotics and observe
[2017-09-20] MEDS: Digoxin 125 mcg (0.125 mg) Tab PO SCH (17:38)
--- NOTE | 2017-09-21 01:07 | CON ---
DATE: 09/20/2017 She is being seen today for a consultation followup. PRESENTATION: Patient is a 66-year-old -[place] female, she is of average height and build, seen at bedside. Patient was admitted to the hospital on 09/19/2017 for altered mental status. Evidently, she was hallucinating at home, which was a concern to her daughter. She is currently living with her daughter. Psychiatric consult was called as a routine. Patient is calmer today. She is more oriented. States she is willing to stay and do what she needs to do to get better; that she really is frustrated and wants to get out of the hospital. She indicates that sometimes she is not getting along with her daughter. She does not like her last boyfriend but she loves the granddaughter and spending time with her. She feels that she can go back home with her daughter and manage. I have spoken with child welfare social worker about the fact that she does need a much supervision in order to live in a home environment. Patient's current vital signs include temperature of 97.6, pulse rate of 78, blood pressure is 127/70, respiratory rate of 20, and O2 sat of 100%. According to the nurses and the nurses' notes, patient has been more oriented, has not been wandering, has been staying, has been less confused. MENTAL STATUS EXAMINATION: Patient is alert and oriented x 3. Her eye contact is good. Her behavior is cooperative. Her speech rate and volume are within normal limits. Mood is euthymic, affect is full, thoughts are goal directed. She denies being suicidal or homicidal. Denies the presence of hallucinations, delusions, or paranoia. Her concentration and focus are poor. Her memory, both short and prison, have deficits. Her appetite, she indicates, is not normal and indicates that she is not sleeping well at night, though the nurses' notes indicate that she is. 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 PLAN: Patient denies being suicidal or homicidal. Patient is in no imminent danger of hurting herself or others. In terms of medication for behavioral purposes, she is on donepezil 10 mg at bedtime; Ativan 0.5 mg p.o. or IM q.8 hours p.r.n., which is not needed to be utilized; Namenda 5 mg p.o. daily; and Seroquel 12.5 mg one at bedtime. She also has a p.r.n. of Geodon injection should it be needed, it does not appear that it will. I recommend continuing these present medications. Patient appears to have stabilized, Other recommendations include patient's daughter seek POA and probable exterminator helper placement. Psychiatry will sign off. Thank you for the consult. Livia Rosen APN Carla Wilkinson MD [facility]
--- NOTE | 2017-09-21 02:06 | PN ---
DATE: SUBJECTIVE: Patient seen and examined at the bedside. Looking comfortable. Sleepy, arousable. Moving all 4 extremities. No fever, no chills. No headache, no dizziness. No complaints. No diarrhea. No hematuria, no hematochezia. No swelling of the legs. PHYSICAL EXAMINATION: VITAL SIGNS: Temperature 97.8, pulse 70, blood pressure 125/79, respiratory rate 20. HEENT: Head normocephalic, atraumatic. Eyes, PERRLA. Extraocular muscles intact. Conjunctivae are clear. Nose patent. NECK: Supple. No carotid bruit. No JVD or thyromegaly. CHEST: Bilaterally symmetrical. HEART: S1 and S2 positive. LUNGS: Clear to auscultation. ABDOMEN: Soft. Bowel sounds are present. No organomegaly. EXTREMITIES: No edema. No cyanosis. NEUROLOGIC: The patient is awake and alert. Moving all 4 extremities. No focal deficits. LABORATORY DATA: White blood cell is 3.4, hemoglobin 10.0, hematocrit 30.3, platelets 151. Sodium 138, potassium 3.7, BUN 12, creatinine 1.1, phosphorus 4.8. Prolactin less than 0.05. MEDICATIONS: Aricept, Ativan, digoxin, Geodon, Inderal, potassium, atorvastatin, Namenda, Plavix, Seroquel. ASSESSMENT AND PLAN: Ms. Willow Cast is a 66-year-old lady with leukopenia, anemia, history of hyperphosphatemia. Blood cultures and urine cultures are negative. ID was on the case. They stopped all antibiotics. Reviewed Dr. Keven Villaseñor's notes. History of systemic inflammatory response syndrome, consider acute stress response, no evidence of sepsis identified; hypertension, stable; coronary artery disease, stable; cognitive impairment, Psych is on the case; asthma, stable; history of right leg deep venous thrombosis, stable; diabetes mellitus, stable. We will order physical therapy. Readjust medications. Either patient has to go to Psych or rehab. Gastrointestinal and deep vein thrombosis prophylaxis. Repeat labs. We will follow. Fariha Olvera MD
[2017-09-21 07:19] LABS: IRON 34 ug/dL (45-180)
[2017-09-21 07:21] LABS: HEMOGLOBIN 10.3 g/dL (12.0-16.0); MEAN CORPUSCULAR HEMOGLOBIN 33.6 pg (25.0-35.0); MEAN CORPUSCULAR HGB CONC 33.6 g/dl (31.0-37.0); MEAN PLATELET VOLUME 9.6 fl (7.0-11.0); RBC 3.07 10^6/uL (3.5-6.1); RED CELL DISTRIBUTION WIDTH 14.7 % (11.5-14.5); WHITE BLOOD COUNT 3.7 10^3/ul (4.5-11.0)
[2017-09-21 07:29] LABS: % IRON SATURATION 17 % (20-55); BLOOD UREA NITROGEN 7 mg/dL (7-21); GFR AFRICAN-AMERICAN > 60; GFR NON-AFRICAN AMERICAN > 60; HDL CHOLESTEROL 53 mg/dL (29-60); TOTAL IRON BINDING CAPACITY 203 ug/dL (265-497)
[2017-09-21 07:30] LABS: LDL CHOLESTEROL 46 mg/dL (0-129)
[2017-09-21] MEDS: Potassium Chloride 20 mEq ER Tab PO SCH (10:25)
[2017-09-21 14:00] LABS: FOLATE 7.2 ng/mL
[2017-09-21] MEDS: Digoxin 125 mcg (0.125 mg) Tab PO SCH (15:30)
--- NOTE | 2017-09-21 16:39 | CP.PCM.PN ---
Subjective - Date & Time of Evaluation Date of Evaluation: 09/21/17 Time of Evaluation: 11:45 - Subjective Subjective: No fevers, not in distress. Objective - Vital Signs/Intake and Output Vital Signs (last 24 hours): Temp Pulse Resp BP Pulse Ox 97.3 F L 63 18 99/61 L 97 09/21/17 14:00 09/21/17 14:00 09/21/17 14:00 09/21/17 14:00 09/21/17 14:00 Intake and Output: 09/21/17 09/21/17 06:59 18:59 Intake Total 5120 Balance 5120 - Medications Medications: Current Medications Atorvastatin Calcium (Lipitor) 80 mg PO DAILY [facility] Last Admin: 09/21/17 10:26 Dose: 80 mg Clopidogrel Bisulfate (Plavix) 75 mg PO DAILY [facility] Last Admin: 09/21/17 10:26 Dose: 75 mg Digoxin (Digoxin) 0.125 mg PO 1400 [facility] Last Admin: 09/21/17 15:30 Dose: Not Given Donepezil HCl (Aricept) 10 mg PO HS [facility] Last Admin: 09/20/17 21:40 Dose: 10 mg Memantine (Namenda) 5 mg PO DAILY [facility] Last Admin: 09/21/17 10:26 Dose: 5 mg Potassium Chloride (K-Dur 20 Meq Er Tab) 40 meq PO BRK [facility] Last Admin: 09/21/17 10:25 Dose: 40 meq Propranolol HCl (Inderal) 40 mg PO DAILY [facility] Last Admin: 09/21/17 10:28 Dose: 40 mg Quetiapine Fumarate (Seroquel) 12.5 mg PO BID [facility] PRN Reason: Protocol Last Admin: 09/21/17 10:27 Dose: 12.5 mg - Labs Labs: 09/21/17 06:40 09/21/17 06:40 PT 11.6 SECONDS (9.4-12.5) 09/18/17 08:50 INR 1.01 (0.93-1.08) 09/18/17 08:50 APTT 27.9 Seconds (25.1-36.5) 09/18/17 08:50 - Constitutional Appears: Chronically Ill - Head Exam Head Exam: NORMAL INSPECTION - ENT Exam ENT Exam: Mucous Membranes Moist - Neck Exam Neck Exam: absent: Meningismus - Respiratory Exam Respiratory Exam: Decreased Breath Sounds - Cardiovascular Exam Cardiovascular Exam: +S1, +S2 - GI/Abdominal Exam GI & Abdominal Exam: Soft. absent: Tenderness Assessment and Plan - Assessment and Plan (Free Text) Plan: Assessment systemic inflammatory response syndrome, consider acute stress response, no evidence of sepsis identified HTN CAD S/P PCI history of chronic diarrhea cognitive impairment asthma history of right leg DVT DM Plan cultures have been negative, PCT is <0.05, CXR is negative - will continue to monitor off antibiotics and observe
--- NOTE | 2017-09-22 03:25 | CP.PCM.PN ---
Subjective - Date & Time of Evaluation Date of Evaluation: 09/22/17 Time of Evaluation: 03:21 - Subjective Subjective: pt was woke up from sleep and is confused called police that she wants to go to er . pt has hx of dementia. and has recently been more confused. Objective - Vital Signs/Intake and Output Vital Signs (last 24 hours): Temp Pulse Resp BP Pulse Ox 97.3 F L 63 18 99/61 L 97 09/21/17 14:00 09/21/17 14:00 09/21/17 14:00 09/21/17 14:00 09/21/17 14:00 Intake and Output: 09/21/17 09/22/17 18:59 06:59 Intake Total 770 Balance 770 - Medications Medications: Current Medications Atorvastatin Calcium (Lipitor) 80 mg PO DAILY [facility] Last Admin: 09/21/17 10:26 Dose: 80 mg Clopidogrel Bisulfate (Plavix) 75 mg PO DAILY [facility] Last Admin: 09/21/17 10:26 Dose: 75 mg Digoxin (Digoxin) 0.125 mg PO 1400 [facility] Last Admin: 09/21/17 15:30 Dose: Not Given Donepezil HCl (Aricept) 10 mg PO HS [facility] Last Admin: 09/21/17 21:13 Dose: 10 mg Memantine (Namenda) 5 mg PO DAILY [facility] Last Admin: 09/21/17 10:26 Dose: 5 mg Potassium Chloride (K-Dur 20 Meq Er Tab) 40 meq PO BRK [facility] Last Admin: 09/21/17 10:25 Dose: 40 meq Propranolol HCl (Inderal) 40 mg PO DAILY [facility] Last Admin: 09/21/17 10:28 Dose: 40 mg Quetiapine Fumarate (Seroquel) 12.5 mg PO BID [facility] PRN Reason: Protocol Last Admin: 09/21/17 17:59 Dose: 12.5 mg - Labs Labs: 09/21/17 06:40 09/21/17 06:40 PT 11.6 SECONDS (9.4-12.5) 09/18/17 08:50 INR 1.01 (0.93-1.08) 09/18/17 08:50 APTT 27.9 Seconds (25.1-36.5) 09/18/17 08:50 - Constitutional Appears: Confused - Head Exam Head Exam: NORMOCEPHALIC - Eye Exam Eye Exam: PERRL - Neck Exam Neck Exam: Full ROM - Respiratory Exam Respiratory Exam: NORMAL BREATHING PATTERN - Cardiovascular Exam Cardiovascular Exam: RRR, +S1, +S2 - Rectal Exam Rectal Exam: Deferred - Extremities Exam Extremities Exam: Full ROM - Neurological Exam Neurological Exam: Awake - Skin Skin Exam: Dry, Normal Color Assessment and Plan - Assessment and Plan (Free Text) Assessment: confusion /psychosis/ dementia. Plan: will restrain the pt and give haldol 2 mg im x1.
--- NOTE | 2017-09-22 05:04 | PN ---
DATE: SUBJECTIVE: The patient is a 66-year-old female. The patient is seen and examined at the bedside, looking comfortable. No nausea, vomiting, or diarrhea. No hematuria or hematochezia. No swelling of the leg. No chest pain. No palpitation. No headache. No dizziness. PHYSICAL EXAMINATION: VITAL SIGNS: Temperature 97.3, pulse 63, respiratory rate 18, blood pressure 99/51, pulse oximetry 97. HEENT: Head normocephalic, atraumatic. Eyes PERRLA. Extraocular muscles intact. Conjunctivae clear. Nose patent. Mucous membrane moist. NECK: Supple. No carotid bruit. No JVD or thyromegaly. CHEST: Bilaterally symmetrical. HEART: S1 and S2 positive. LUNGS: Clear to auscultation. ABDOMEN: Soft. Bowel sounds positive. No organomegaly. EXTREMITIES: No edema. No cyanosis. NEUROLOGICAL: The patient is awake and alert. Moving all four extremities. No focal deficits. LABORATORY DATA: White blood cells 3.7, hemoglobin 12.3, hematocrit 38.7, platelets 178. Sodium 140, potassium 4.2, BUN 7, creatinine 0.8, glucose 92. MEDICATIONS: Atorvastatin, Plavix, digoxin, Aricept, Namenda, potassium, propranolol, Seroquel. ASSESSMENT AND PLAN: Ms. Willow Cast is a 66-year-old lady with leukopenia, anemia, hyperchloremia, has systemic inflammatory response syndrome, consider acute stress response. No evidence of sepsis identified. Hypertension, coronary artery disease status post cardiac stenting, history of chronic diarrhea but now improved, cognitive impairment, asthma, history of right leg deep venous thrombosis, diabetes mellitus. Cultures have been negative. PCP is less than 0.05. X-ray is negative. We will continue monitoring off the antibiotics and observe as per Infectious Disease. Medically, the patient is stable. No complaints right now except she is getting delusional and periods of confusion. Seen by the psychiatrist also. Discussion done with the social workers. Continue present treatment. The patient is living alone, is not safe to discharge home alone. The patient is not want to go to the Psychiatric Floor and does not want to live with daughter. Still working on that, looking for safe discharge. We will follow. Fariha Olvera MD [facility] # [id number] [facility]
[2017-09-22 09:03] LABS: BASO # 0.01 K/mm3 (0.0-2.0); BASO % 0.2 % (0.0-3.0); EOS # 0.1 (0.0-0.7); EOS % 1.1 % (1.5-5.0); GRAN # 2.42 (1.4-6.5); GRAN % 54.4 % (50.0-68.0); HEMOGLOBIN 11.3 g/dL (12.0-16.0); LYMPH # 1.8 (1.2-3.4); LYMPH % 39.8 % (22.0-35.0); MEAN CELL VOLUME 100.3 fl (80.0-105.0); MEAN CORPUSCULAR HEMOGLOBIN 33.2 pg (25.0-35.0); MEAN CORPUSCULAR HGB CONC 33.1 g/dl (31.0-37.0); MEAN PLATELET VOLUME 9.1 fl (7.0-11.0); MONO # 0.2 (0.1-0.6); MONO % 4.5 % (1.0-6.0); RBC 3.4 10^6/uL (3.5-6.1); RED CELL DISTRIBUTION WIDTH 14.7 % (11.5-14.5); WHITE BLOOD COUNT 4.5 10^3/ul (4.5-11.0)
[2017-09-22 09:15] LABS: ALB/GLOB RATIO 1.1 (1.1-1.8); ALBUMIN 3.7 g/dL (3.0-4.8); ALT/SGPT 30 U/L (7-56); AST/SGOT 28 U/L (14-36); BLOOD UREA NITROGEN 6 mg/dL (7-21); CALCIUM 9.7 mg/dL (8.4-10.5); GFR AFRICAN-AMERICAN > 60; GFR NON-AFRICAN AMERICAN > 60
[2017-09-22] MEDS: Potassium Chloride 20 mEq ER Tab PO SCH (09:16)
[2017-09-22 12:54] LABS: FOLATE 9.4 ng/mL
--- NOTE | 2017-09-22 16:17 | CP.PCM.CON ---
History of Present Illness - History of Present Illness History of Present Illness: Heme-onc Consult Note, Harry Thorpe DO, PGY-2 IM This is a 66 year old female with PMH of HTN, CAD S/P PCI, history of chronic diarrhea, cognitive impairment, asthma, history of right leg DVT, DM, was apparently brought in to [facility] by the daughter after the patient was apparently noted to have some confusion. Heme-onc was consulted for anemia. On exam and interview today, patient is awake, alert, oriented x 4 (self, location, year, situation), and displays logical thought processes and reasoning. There have been reports of patient exhibiting some degree of dementia, but this was not evident on exam or during interview today. Patient reports (consistent with prior charting), a recent history of bloody diarrhea, in Aug 2017, for which she was hospitalized at [facility], and underwent colonscopy with biopsies for possible celiac (serology positive, biopsy negative). She has had no further episodes since that time, and her blood counts on admission here are improved. Of note, from prior charting, her baseline hemoglobin appears to be 11-13, her low point during the bloody diarrhea was 8.4, and her hgb on admission this time was 10, improved to 11.3 today. Patient is hemodynamically stable, and has no acute complaints, including lightheadedness, dizziness, vision changes, malaise, weakness (focal or generalized), shortness of breath, nausea, emesis, chest pain, shortness of breath, diarrhea (bloody or otherwise), melena, hematochezia, hematuria, dysuria, polyuria, or fevers/ chills. All other ROS in 12-system review negative. PMH: CHF, CAD with stents, HTN, DM, Asthma, DVT PSH: Colonoscopy, Cardiac cath with stenting, gastric bypass FHx: unsure of family history SHx: former tobacco user (quit > 5 yrs prior), social EtOH use, denies illicits/ IVDA PMD: Dr. Barreto Review of Systems - Review of Systems All systems: reviewed and no additional remarkable complaints except (as per HPI ) Past Patient History - Infectious Disease Hx of Infectious Diseases: None - Tetanus Immunizations Tetanus Immunization: Unknown - Past Medical History & Family History Past Medical History?: Yes - Past Social History Smoking Status: Former Smoker - CARDIAC Hx Cardiac Disorders: Yes Hx Congestive Heart Failure: Yes Hx Hypertension: Yes Other/Comment: R Leg DVT - PULMONARY Hx Respiratory Disorders: Yes Hx Asthma: Yes - NEUROLOGICAL Hx Neurological Disorder: No - HEENT Hx HEENT Problems: Yes Other/Comment: glasses - RENAL Hx Chronic Kidney Disease: No - ENDOCRINE/METABOLIC Hx Diabetes Mellitus Type 2: Yes - HEMATOLOGICAL/ONCOLOGICAL Hx Blood Disorders: No Hx AIDS: No Hx Anemia: No Hx Cancer: No Hx Chemotherapy: No Hx Cirrhosis: No Hx Hepatitis A: No Hx Hepatitis B: No Hx Hepatitis C: No Hx Metastesis: No Hx Shingles: No Hx Unexplained Bleeding: No - INTEGUMENTARY Hx Dermatological Problems: No - MUSCULOSKELETAL/RHEUMATOLOGICAL Hx Musculoskeletal Disorders: Yes Hx Falls: Yes - GASTROINTESTINAL Hx Gastrointestinal Disorders: No - GENITOURINARY/GYNECOLOGICAL Hx Genitourinary Disorders: No - PSYCHIATRIC Hx Psychophysiologic Disorder: No Hx Emotional Abuse: No Hx Physical Abuse: No Hx Substance Use: No - SURGICAL HISTORY Hx Cardiac Catheterization: Yes Hx Coronary Stent: Yes - ANESTHESIA Hx Anesthesia Reactions: No Hx Malignant Hyperthermia: No Meds Allergies/Adverse Reactions: Allergies Allergy/AdvReac Type Severity Reaction Status Date / Time No Known Allergies Allergy Verified 04/12/17 15:36 - Medications Medications: Current Medications Atorvastatin Calcium (Lipitor) 80 mg PO DAILY [facility] Last Admin: 09/22/17 09:16 Dose: 80 mg Clopidogrel Bisulfate (Plavix) 75 mg PO DAILY [facility] Last Admin: 09/22/17 09:16 Dose: 75 mg Digoxin (Digoxin) 0.125 mg PO 1400 [facility] Last Admin: 09/21/17 15:30 Dose: Not Given Donepezil HCl (Aricept) 10 mg PO HS [facility] Last Admin: 09/21/17 21:13 Dose: 10 mg Memantine (Namenda) 5 mg PO DAILY [facility] Last Admin: 09/22/17 09:16 Dose: 5 mg Potassium Chloride (K-Dur 20 Meq Er Tab) 40 meq PO BRK [facility] Last Admin: 09/22/17 09:16 Dose: 40 meq Propranolol HCl (Inderal) 40 mg PO DAILY [facility] Last Admin: 09/22/17 09:16 Dose: 40 mg Quetiapine Fumarate (Seroquel) 12.5 mg PO BID [facility] PRN Reason: Protocol Last Admin: 09/22/17 09:17 Dose: 12.5 mg Physical Exam - Constitutional Appears: Non-toxic, No Acute Distress, Chronically Ill - Head Exam Head Exam: ATRAUMATIC, NORMAL INSPECTION, NORMOCEPHALIC - Eye Exam Eye Exam: EOMI, PERRL. absent: Conjunctival injection, Scleral icterus Pupil Exam: PERRL. absent: Irregular, Unequal Additional comments: conjunctival pallor bilaterally - ENT Exam ENT Exam: Mucous Membranes Moist - Neck Exam Neck exam: Positive for: Full Rom, Normal Inspection - Respiratory Exam Respiratory Exam: Clear to Auscultation Bilateral, NORMAL BREATHING PATTERN. absent: Decreased Breath Sounds, Rales, Rhonchi, Wheezes - Cardiovascular Exam Cardiovascular Exam: REGULAR RHYTHM, RRR, +S1, +S2. absent: Bradycardia, Tachycardia, Irregular Rhythm, JVD, +S4 - GI/Abdominal Exam GI & Abdominal Exam: Normal Bowel Sounds, Soft. absent: Tenderness - Extremities Exam Extremities exam: Positive for: normal capillary refill, pedal pulses present. Negative for: calf tenderness, pedal edema, tenderness Additional comments: some chronic skin changes along posterior aspect of right leg, but still warm to palpation, still palpable distal pulses, not edematous/erythematous/tender - Neurological Exam Neurological exam: Alert, CN II-XII Intact, Oriented x3 (x4: self, location, year, situation) - Psychiatric Exam Psychiatric exam: Normal Affect, Normal Mood - Skin Skin Exam: Dry, Intact, Normal Color (except as documented in extremities exam) , Warm Results - Vital Signs Recent Vital Signs: Last Vital Signs Temp 98.6 F 09/22/17 08:07 Pulse 60 09/22/17 08:07 Resp 20 09/22/17 08:07 BP 150/73 09/22/17 08:07 Pulse Ox 100 09/22/17 08:07 - Labs Result Diagrams: 09/22/17 08:50 09/22/17 08:50 Labs: Laboratory Results - last 24 hr 09/22/17 09/22/17 08:50 08:50 WBC 4.5 D RBC 3.40 L Hgb 11.3 L Hct 34.1 L MCV 100.3 MCH 33.2 MCHC 33.1 RDW 14.7 H Plt Count 184 MPV 9.1 Gran % 54.4 Lymph % (Auto) 39.8 H Foster % (Auto) 4.5 Eos % (Auto) 1.1 L Baso % (Auto) 0.2 Gran # 2.42 Lymph # (Auto) 1.8 Foster # (Auto) 0.2 Eos # (Auto) 0.1 Baso # (Auto) 0.01 Sodium 139 Potassium 4.5 Chloride 106 Carbon Dioxide 26 Anion Gap 11 BUN 6 L Creatinine 0.8 Est GFR ( Amer) > 60 Est GFR (Non-Af Amer) > 60 Random Glucose 115 H Calcium 9.7 Phosphorus 3.7 Magnesium 1.8 Ferritin 232.0 Total Bilirubin 0.2 AST 28 ALT 30 Alkaline Phosphatase 64 Total Protein 7.0 Albumin 3.7 Globulin 3.3 Albumin/Globulin Ratio 1.1 Vitamin B12 541 Folate 9.4 Assessment & Plan - Assessment and Plan (Free Text) Assessment: This is a 66 year old female with PMH of HTN, CAD S/P PCI, history of chronic diarrhea, cognitive impairment, asthma, history of right leg DVT, DM, was apparently brought in to [facility] by the daughter after the patient was apparently noted to have some confusion. Heme-onc was consulted for anemia. Plan: Borderline macrocytic anemia Wide RDW on diff HTN CAD s/p Cath with stents Hx of bloody diarrhea concerning for Celiac - resolved prior to admission -Hgb improving since admission, 10 on admission and 11.3 today -hemodynamically stable, no signs of acute bleed, can continue ASA and Plavix given cardiac hx with stenting -Iron/Iron Sat low, but TIBC also low which is not consistent with iron deficiency anemia -may be mixed picture anemia given wide RDW -borderline macrocytic anemia, with hx of gastric bypass (unclear if sleeve vs band) and poor recent PO intake; Folate/B12 levels ordered, Homocysteine and Methylmelonic acid ordered -no indication for transfusion at this time Patient reviewed and discussed at length with attending, Dr. Estevez.
[2017-09-22] MEDS: Digoxin 125 mcg (0.125 mg) Tab PO SCH (17:12)
--- NOTE | 2017-09-22 20:47 | CP.PCM.PN ---
Subjective - Date & Time of Evaluation Date of Evaluation: 09/22/17 Time of Evaluation: 12:10 - Subjective Subjective: No fevers, not in distress. Objective - Vital Signs/Intake and Output Vital Signs (last 24 hours): Temp Pulse Resp BP Pulse Ox 98.6 F 60 20 150/73 100 09/22/17 08:07 09/22/17 08:07 09/22/17 08:07 09/22/17 08:07 09/22/17 08:07 Intake and Output: 09/22/17 09/22/17 06:59 18:59 Intake Total 1010 Balance 1010 - Medications Medications: Current Medications Atorvastatin Calcium (Lipitor) 80 mg PO DAILY [facility] Last Admin: 09/21/17 10:26 Dose: 80 mg Clopidogrel Bisulfate (Plavix) 75 mg PO DAILY [facility] Last Admin: 09/21/17 10:26 Dose: 75 mg Digoxin (Digoxin) 0.125 mg PO 1400 [facility] Last Admin: 09/21/17 15:30 Dose: Not Given Donepezil HCl (Aricept) 10 mg PO HS [facility] Last Admin: 09/21/17 21:13 Dose: 10 mg Memantine (Namenda) 5 mg PO DAILY [facility] Last Admin: 09/21/17 10:26 Dose: 5 mg Potassium Chloride (K-Dur 20 Meq Er Tab) 40 meq PO BRK [facility] Last Admin: 09/21/17 10:25 Dose: 40 meq Propranolol HCl (Inderal) 40 mg PO DAILY [facility] Last Admin: 09/21/17 10:28 Dose: 40 mg Quetiapine Fumarate (Seroquel) 12.5 mg PO BID [facility] PRN Reason: Protocol Last Admin: 09/21/17 17:59 Dose: 12.5 mg - Labs Labs: 09/21/17 06:40 09/21/17 06:40 PT 11.6 SECONDS (9.4-12.5) 09/18/17 08:50 INR 1.01 (0.93-1.08) 09/18/17 08:50 APTT 27.9 Seconds (25.1-36.5) 09/18/17 08:50 - Constitutional Appears: Non-toxic, Chronically Ill - Head Exam Head Exam: NORMAL INSPECTION - ENT Exam ENT Exam: Mucous Membranes Moist - Respiratory Exam Respiratory Exam: Decreased Breath Sounds - Cardiovascular Exam Cardiovascular Exam: +S1, +S2 - GI/Abdominal Exam GI & Abdominal Exam: Soft. absent: Tenderness Assessment and Plan - Assessment and Plan (Free Text) Plan: Assessment systemic inflammatory response syndrome, consider acute stress response, no evidence of sepsis identified HTN CAD S/P PCI history of chronic diarrhea cognitive impairment asthma history of right leg DVT DM Plan cultures have been negative, PCT is <0.05, CXR is negative - will continue to monitor off antibiotics since she is at risk for nosocomial infections
--- NOTE | 2017-09-22 22:23 | PN ---
DATE: SUBJECTIVE: The patient is a 66-year-old female. The patient was seen and examined on the bedside, sitting on the chair, having dinner. Last night episode noted. Seen by Dr. Anna Chang, house physician and heard that the patient was calling police. She wants to go to ER. The patient has history of psych problem. That moment, I did examination. No nausea, vomiting, or diarrhea. No hematuria or hematochezia. No swelling of the leg. No chest pain, no palpitation. No headache, no dizziness. PHYSICAL EXAMINATION: VITAL SIGNS: Temperature 97.3, pulse 63, respiratory rate 18, blood pressure 99/51, pulse oximetry 97. HEENT: Head : Normocephalic and atraumatic. Eyes: PERRLA. Extraocular muscles intact. Conjunctivae clear. Nose: Patent. Mucous membranes moist. NECK: Supple. No carotid bruit. No JVD or thyromegaly. CHEST: Bilaterally symmetrical. HEART: S1 and S2 positive. LUNGS: Clear to auscultation. ABDOMEN: Soft. Bowel sounds present. No organomegaly. EXTREMITIES: No edema. No cyanosis. NEUROLOGIC: The patient is awake, alert. Moving all 4 extremities. No focal deficit. MEDICATIONS: Lipitor, Plavix, digoxin, Aricept, Namenda, potassium, Inderal, and Seroquel. LABORATORY DATA: White blood cells 3.7, hemoglobin 10.3, hematocrit 30.7, platelets 178. Sodium 140, potassium 4.2, BUN 7, creatinine 0.8, glucose 92. ASSESSMENT AND PLAN: Ms. Willow Cast is a 66-year-old lady with leukopenia, anemia, hyperchloremia, has confusion, psychosis, dementia. Dr. Anna Chang restrained the patient and gave Haldol 2 mg IM stat. The patient has history of gastric bypass, that is why she has chronic diarrhea. Once in a while diarrhea is not new for her. Actually, her diarrhea is now better. I am not seeing any medical condition that will give her delirious. Hypertension under control, coronary artery disease stable, anemia actually is improving, seen by Dr. Estevez's student. Looking for placement. The patient is living alone, is not stable discharge, going home alone. Gastrointestinal and deep venous thrombosis prophylaxis. Repeat labs. We will talk with the daughter. We will follow. Fariha Olvera MD
[2017-09-23] MEDS: Potassium Chloride 20 mEq ER Tab PO SCH (09:37)
[2017-09-23] MEDS: Digoxin 125 mcg (0.125 mg) Tab PO SCH (13:04)
--- NOTE | 2017-09-23 20:20 | PN ---
DATE: 09/23/2017 SUBJECTIVE: Patient is in bed, in no acute distress, nontoxic. PHYSICAL EXAMINATION: VITAL SIGNS: Temperature is 98, blood pressure is 150/70, respiratory rate of 20. HEENT: Unremarkable. NECK: Supple. LUNGS: Have decreased breath sounds. HEART: Normal S1, S2. ABDOMEN: Soft, nontender. LABORATORY EXAMINATION: Reveals a white count of 4.5, hemoglobin of 11, platelets of 184. Coagulation is noted. Chemistries reveals a BUN of 6, creatinine of 0.8. Urinalysis is noted and microbiology reveals the blood cultures have no growth. ASSESSMENT AND PLAN: This is a 66-year-old female who was seen earlier this morning in 567, bed 2, doing well with systemic inflammatory response syndrome, no evidence of sepsis identified, with hypertension and coronary artery disease by history, cognitive impairment, asthma, currently off of antibiotics. Edwin Garcia MD
[2017-09-24] MEDS: Potassium Chloride 20 mEq ER Tab PO SCH (09:11)
--- NOTE | 2017-09-24 10:15 | PN ---
DATE: Patient is a 66-year-old female. SUBJECTIVE: Patient seen and examined at the bedside, looking comfortable. No headache. No dizziness, but is getting confused once in a while. Night was not comfortable. Patient was anxious. We will put patient on one-to-one. No nausea, vomiting or diarrhea. No hematuria or hematochezia. No swelling of the leg. No chest pain. No palpitation. PHYSICAL EXAMINATION VITAL SIGNS: Temperature 98.7, pulse 76, blood pressure 152/77, respiratory rate 20. HEENT: Head, normocephalic and atraumatic. Eyes, PERRLA. Extraocular muscles intact. Conjunctivae clear. Nose, patent. Mucous membranes moist. NECK: Supple. No carotid bruit. No JVD or thyromegaly. CHEST: Bilaterally symmetrical. HEART: S1 and S2 positive. LUNGS: Clear to auscultation. ABDOMEN: Soft. Bowel sounds present. No organomegaly. EXTREMITIES: No edema. No cyanosis. NEUROLOGIC: The patient is awake, alert. Moving all 4 extremities. No focal deficit. MEDICATIONS: Aricept, digoxin, Inderal, K-Dur, Lipitor, Namenda, Plavix, Seroquel, Tylenol. LABORATORY DATA: We do not have recent labs today, but I reviewed old labs. ASSESSMENT AND PLAN: Ms. Willow Cast is a 66-year-old lady with anemia, hyperglycemia, iron deficiency, proteinuria, with altered mental status. Dr. Garcia, ID, is on the case. History of gastric bypass; history of chronic diarrhea, but right now no diarrhea; history of hypertension; coronary artery disease; chronic obstructive pulmonary disease; history of depression. The patient is getting delirious, altered mental status. Actually, the patient is supposed to go home today, but hospital tried to reach the daughter, could not reach the daughter. Patient was so confused, we had to take patient on one-to-one. Psych is on the case. Gastrointestinal and deep venous thrombosis prophylaxis. Repeat labs. We will follow up. Fariha Olvera MD [facility]
[2017-09-24] MEDS: Digoxin 125 mcg (0.125 mg) Tab PO SCH (13:47)
--- NOTE | 2017-09-24 18:23 | PN ---
DATE: 09/24/2017 SUBJECTIVE: The patient was seen in room 567, bed 2. The patient is in bed, in no acute distress. She states she is doing well. No fevers or chills. Diarrhea is resolved. PHYSICAL EXAMINATION: VITAL SIGNS: Temperature of 98, blood pressure is 110/50, respiratory rate of 18, heart rate of 74. HEENT: Unremarkable. NECK: Supple. LUNGS: Have decreased breath sounds. HEART: Normal S1, S2. ABDOMEN: Soft, nontender. No organomegaly. No rebound or guarding. No masses. LABORATORY DATA: Reveals a white count of 4.5, hemoglobin 11, platelets of 184. Coagulation is noted. Chemistries reveal a BUN of 6, creatinine of 0.8. Procalcitonin is less than 0.005. Urinalysis is noted and microbiology reveals the blood cultures are negative. ASSESSMENT AND PLAN: This is a 66-year-old female seen earlier this morning, doing well with systemic inflammatory response syndrome. No evidence of sepsis and no evidence of infection with cultures negative in phase of hypertension, coronary artery disease, cognitive impairment, asthma, currently off of antibiotics, afebrile. Dr. Olvera's note is reviewed. Edwin Garcia MD
[2017-09-24] MEDS ORDERED: Oxycodone/Acetaminophen 5/325 mg Tab PO STA (22:13)
[2017-09-25] MEDS: Potassium Chloride 20 mEq ER Tab PO SCH (09:48)
--- NOTE | 2017-09-25 09:54 | PN ---
DATE: 09/24/2017 SUBJECTIVE: The patient is a 66-year-old female. Patient was seen and examined at bedside on 09/24/2017, looking comfortable, getting episodes of confusion. Last night was also distressful. Then patient got Ativan as her medication. Psychiatrist is on the case. Patient does not have any diarrhea. No other medical condition that can give psychosis or delirium. PHYSICAL EXAMINATION: VITAL SIGNS: Temperature 98, pulse 60, blood pressure 110/68. HEENT: Head is normocephalic and atraumatic. Eyes, PERRLA. Extraocular muscles intact. Conjunctivae clear. Nose patent. Mucous membranes moist. NECK: Supple. No carotid bruits. No JVD or thyromegaly. CHEST: Bilaterally symmetrical. HEART: S1 and S2 positive. LUNGS: Clear to auscultation. ABDOMEN: Soft. Bowel sounds present. No organomegaly. EXTREMITIES: No edema. No cyanosis. NEUROLOGIC: Patient is awake and alert. Moving all four extremities. No focal deficit. LABORATORY DATA: White blood cells 4.5, hemoglobin 11, platelets 184. MEDICATIONS: Reviewed by me. ASSESSMENT AND PLAN: The patient is a 66-year-old lady with multiple medical problems, history of systemic inflammatory response syndrome, Has sepsis hypertension, coronary artery disease, cognitive impairment, asthma, diarrhea. Gastrointestinal and deep venous thrombosis prophylaxes. Repeat labs. Actually, patient was discharged 3 days ago, but family is not responding. Patient does not have home hobson. According to patient, she has cat at home . Daughter is not responding. Repeat labs. We will follow up. Fariha Olvera MD [facility]
--- NOTE | 2017-09-25 12:05 | CP.PCM.PN ---
Subjective - Date & Time of Evaluation Date of Evaluation: 09/25/17 Time of Evaluation: 07:30 - Subjective Subjective: Heme-onc Consult Note, Harry Thorpe DO, PGY-2 IM This is a 66 year old female with PMH of HTN, CAD S/P PCI, history of chronic diarrhea, cognitive impairment, asthma, history of right leg DVT, DM, was apparently brought in to [facility] by the daughter after the patient was apparently noted to have some confusion. Heme-onc was consulted for anemia. Today, patient is awake and alert, oriented x4 (self, location, year, president) , pleasant-seeming, wanting to leave AMA to check her home as she feels she isn' t being seen by primary team (Primary: Dr. Olvera). Denies lightheadedness, dizziness, weakness, or any other acute symptoms. Ambulating in room without overt gait instability. Objective - Vital Signs/Intake and Output Vital Signs (last 24 hours): Temp Pulse Resp BP Pulse Ox 98.0 F 72 20 124/78 100 09/25/17 07:30 09/25/17 07:30 09/25/17 07:30 09/25/17 09:49 09/25/17 07:30 Intake and Output: 09/25/17 09/25/17 06:59 18:59 Intake Total 840 Balance 840 - Medications Medications: Current Medications Acetaminophen (Tylenol 325mg Tab) 650 mg PO Q4H PRN PRN Reason: Pain, moderate (4-7) Last Admin: 09/24/17 17:57 Dose: 650 mg Atorvastatin Calcium (Lipitor) 80 mg PO DAILY [facility] Last Admin: 09/25/17 09:48 Dose: 80 mg Clopidogrel Bisulfate (Plavix) 75 mg PO DAILY [facility] Last Admin: 09/25/17 09:48 Dose: 75 mg Digoxin (Digoxin) 0.125 mg PO 1400 [facility] Last Admin: 09/24/17 13:47 Dose: 0.125 mg Donepezil HCl (Aricept) 10 mg PO HS [facility] Last Admin: 09/24/17 21:37 Dose: 10 mg Memantine (Namenda) 5 mg PO DAILY [facility] Last Admin: 09/25/17 09:48 Dose: 5 mg Potassium Chloride (K-Dur 20 Meq Er Tab) 40 meq PO BRK [facility] Last Admin: 09/25/17 09:48 Dose: 40 meq Propranolol HCl (Inderal) 40 mg PO DAILY [facility] Last Admin: 09/25/17 09:49 Dose: 40 mg Quetiapine Fumarate (Seroquel) 12.5 mg PO HS [facility]ANNE PRN Reason: Protocol Last Admin: 09/24/17 21:37 Dose: 12.5 mg Quetiapine Fumarate (Seroquel) 12.5 mg PO 0600,1400 JOANNE PRN Reason: Protocol Last Admin: 09/25/17 05:56 Dose: 12.5 mg - Labs Labs: 09/22/17 08:50 09/22/17 08:50 PT 11.6 SECONDS (9.4-12.5) 09/18/17 08:50 INR 1.01 (0.93-1.08) 09/18/17 08:50 APTT 27.9 Seconds (25.1-36.5) 09/18/17 08:50 - Additional Findings Additional findings: - Constitutional Appears: Non-toxic, No Acute Distress, Chronically Ill - Head Exam Head Exam: ATRAUMATIC, NORMAL INSPECTION, NORMOCEPHALIC - Eye Exam Eye Exam: EOMI. absent: Conjunctival injection, Scleral icterus Pupil Exam: absent: Irregular, Unequal Additional comments: mild conjunctival pallor bilaterally - ENT Exam ENT Exam: Mucous Membranes Moist - Neck Exam Neck exam: Positive for: Full Rom, Normal Inspection - Respiratory Exam Respiratory Exam: Clear to Auscultation Bilateral, NORMAL BREATHING PATTERN. absent: Decreased Breath Sounds, Rales, Rhonchi, Wheezes - Cardiovascular Exam Cardiovascular Exam: REGULAR RHYTHM, RRR, +S1, +S2. absent: Bradycardia, Tachycardia, Irregular Rhythm, JVD, +S4 - GI/Abdominal Exam GI & Abdominal Exam: Normal Bowel Sounds, Soft. absent: Tenderness - Extremities Exam Extremities exam: Positive for: normal capillary refill, pedal pulses present. Negative for: calf tenderness, pedal edema, tenderness Additional comments: some chronic skin changes along posterior aspect of right leg, but still warm to palpation, still palpable distal pulses, not edematous/erythematous/tender - Neurological Exam Neurological exam: Alert, CN II-XII Intact, Oriented x3 (x4: self, location, year, president) - Psychiatric Exam Psychiatric exam: Normal Affect, Normal Mood - Skin Skin Exam: Dry, Intact, Normal Color (except as documented in extremities exam) , Warm Assessment and Plan - Assessment and Plan (Free Text) Assessment: This is a 66 year old female with PMH of HTN, CAD S/P PCI, history of chronic diarrhea, cognitive impairment, asthma, history of right leg DVT, DM, was apparently brought in to [facility] by the daughter after the patient was apparently noted to have some confusion. Heme-onc was consulted for anemia. Plan: Borderline macrocytic anemia Wide RDW on diff HTN CAD s/p Cath with stents Hx of bloody diarrhea concerning for Celiac - resolved prior to admission -Hgb improving since admission, 10 on admission and 11.3 at last check; no labs today for reassessment and patient attempting to leave AMA so unlikely to be able to obtain new labs today -hemodynamically stable, no signs of acute bleed, can continue ASA and Plavix given cardiac hx with stenting -Iron/Iron Sat low, but TIBC also low which is not consistent with iron deficiency anemia -may be mixed picture anemia given wide RDW -borderline macrocytic anemia, with hx of gastric bypass (unclear if sleeve vs band) and poor recent PO intake -normal methymelonic acid and elevated homocyteine levels suggestive of folate deficiency, would recommend starting on PO Folic acid 1 mg daily -no indication for transfusion at this time Patient reviewed and discussed at length with attending, Dr. Estevez.
[2017-09-25] MEDS: Digoxin 125 mcg (0.125 mg) Tab PO SCH (14:00)
--- NOTE | 2017-09-25 21:58 | CP.PCM.DIS ---
<BernieTierneyleydi Brito - Last Filed: 09/25/17 22:03> Provider - Provider Date of Admission: 09/19/17 20:01 Attending physician: Fariha Olvera MD Primary care physician: Shagufta Barreto MD Consults: ID - Dr. Garcia Hemo - Dr. Estevez Neuro - Dr. Card Psych - Dr. Wilkinson Time Spent in preparation of Discharge (in minutes): 60 Diagnosis - Discharge Diagnosis (1) Iron deficiency anemia Status: Acute (2) Major depression with psychotic features Status: Acute (3) Hyperthyroidism determined by thyroid function test Status: Acute (4) Altered mental status Status: Acute (5) Dementia Status: Acute (6) ESVIN (generalized anxiety disorder) Status: Acute (7) HTN (hypertension) Status: Chronic (8) Proteinuria Status: Chronic Hospital Course - Lab Results Lab Results: Most Recent Lab Values WBC 4.5 10^3/ul (4.5-11.0) D 09/22/17 08:50 RBC 3.40 10^6/uL (3.5-6.1) L 09/22/17 08:50 Hgb 11.3 g/dL (12.0-16.0) L 09/22/17 08:50 Hct 34.1 % (36.0-48.0) L 09/22/17 08:50 MCV 100.3 fl (80.0-105.0) 09/22/17 08:50 MCH 33.2 pg (25.0-35.0) 09/22/17 08:50 MCHC 33.1 g/dl (31.0-37.0) 09/22/17 08:50 RDW 14.7 % (11.5-14.5) H 09/22/17 08:50 Plt Count 184 10^3/uL (120.0-450.0) 09/22/17 08:50 MPV 9.1 fl (7.0-11.0) 09/22/17 08:50 Gran % 54.4 % (50.0-68.0) 09/22/17 08:50 Lymph % (Auto) 39.8 % (22.0-35.0) H 09/22/17 08:50 Gordon % (Auto) 4.5 % (1.0-6.0) 09/22/17 08:50 Eos % (Auto) 1.1 % (1.5-5.0) L 09/22/17 08:50 Baso % (Auto) 0.2 % (0.0-3.0) 09/22/17 08:50 Gran # 2.42 (1.4-6.5) 09/22/17 08:50 Lymph # (Auto) 1.8 (1.2-3.4) 09/22/17 08:50 Gordon # (Auto) 0.2 (0.1-0.6) 09/22/17 08:50 Eos # (Auto) 0.1 (0.0-0.7) 09/22/17 08:50 Baso # (Auto) 0.01 K/mm3 (0.0-2.0) 09/22/17 08:50 PT 11.6 SECONDS (9.4-12.5) 09/18/17 08:50 INR 1.01 (0.93-1.08) 09/18/17 08:50 APTT 27.9 Seconds (25.1-36.5) 09/18/17 08:50 pO2 280 mm/Hg (30-55) H 09/18/17 11:00 VBG pH 7.36 (7.32-7.43) 09/18/17 11:00 VBG pCO2 41.0 (40-60) 09/18/17 11:00 VBG HCO3 23.2 mmol/l (21-28) 09/18/17 11:00 VBG Total CO2 24.5 mmol.L (22-28) 09/18/17 11:00 VBG O2 Sat (Calc) 100.4 % (40-65) H 09/18/17 11:00 VBG Base Excess -2.2 mmol/L (0.0-2.0) L 09/18/17 11:00 VBG Potassium 3.8 mmol/L (3.6-5.2) 09/18/17 11:00 Sodium 137.0 mmol/L (132-148) 09/18/17 11:00 Chloride 111.0 mmol/L (98-107) H 09/18/17 11:00 Glucose 80 mg/dl (65-105) 09/18/17 11:00 Lactate 1.4 mmol/L (0.7-2.1) 09/18/17 11:00 FiO2 21.0 % 09/18/17 11:00 Sodium 139 mmol/L (132-148) 09/22/17 08:50 Potassium 4.5 mmol/L (3.6-5.0) 09/22/17 08:50 Chloride 106 mmol/L (98-107) 09/22/17 08:50 Carbon Dioxide 26 mmol/L (21-33) 09/22/17 08:50 Anion Gap 11 (10-20) 09/22/17 08:50 BUN 6 mg/dL (7-21) L 09/22/17 08:50 Creatinine 0.8 mg/dl (0.7-1.2) 09/22/17 08:50 Est GFR ( Amer) > 60 09/22/17 08:50 Est GFR (Non-Af Amer) > 60 09/22/17 08:50 POC Glucose (mg/dL) 103 mg/dL (65-110) 09/18/17 07:35 Random Glucose 115 mg/dL (70-110) H 09/22/17 08:50 Hemoglobin A1c 4.9 % (4.2-6.5) 09/21/17 06:40 Calcium 9.7 mg/dL (8.4-10.5) 09/22/17 08:50 Phosphorus 3.7 mg/dL (2.5-4.5) 09/22/17 08:50 Magnesium 1.8 mg/dL (1.7-2.2) 09/22/17 08:50 Iron 34 ug/dL (45-180) L 09/21/17 06:40 TIBC 203 ug/dL (265-497) L 09/21/17 06:40 % Saturation 17 % (20-55) L 09/21/17 06:40 Ferritin 232.0 ng/mL 09/22/17 08:50 Total Bilirubin 0.2 mg/dL (0.2-1.3) 09/22/17 08:50 AST 28 U/L (14-36) 09/22/17 08:50 ALT 30 U/L (7-56) 09/22/17 08:50 Alkaline Phosphatase 64 U/L (38-126) 09/22/17 08:50 Ammonia 17 umol/L (9-33) 09/18/17 08:50 Lactate Dehydrogenase 472 U/L (333-699) 09/18/17 08:50 Total Creatine Kinase 54 U/L (35-230) 09/18/17 08:50 Troponin I < 0.01 ng/mL D 09/18/17 08:50 NT-Pro-B Natriuret Pep 41.4 pg/mL (0-450) 09/25/17 06:30 Total Protein 7.0 g/dL (5.8-8.3) 09/22/17 08:50 Albumin 3.7 g/dL (3.0-4.8) 09/22/17 08:50 Globulin 3.3 gm/dL 09/22/17 08:50 Albumin/Globulin Ratio 1.1 (1.1-1.8) 09/22/17 08:50 Triglycerides 121 mg/dL (35-160) 09/21/17 06:40 Cholesterol 128 mg/dL (130-200) L 09/21/17 06:40 LDL Cholesterol Direct 46 mg/dL (0-129) 09/21/17 06:40 HDL Cholesterol 53 mg/dL (29-60) 09/21/17 06:40 Vitamin B12 541 pg/mL (239-931) 09/22/17 08:50 Methylmalonic Acid 169 nmol/L (87-318) 09/22/17 10:20 Folate 9.4 ng/mL 09/22/17 08:50 Homocysteine 19.0 umol/L ( <10.4) H 09/22/17 10:20 Procalcitonin < 0.05 NG/ML (0.19-0.49) L 09/18/17 12:00 TSH 3rd Generation 0.36 mIU/mL (0.46-4.68) L 09/21/17 06:40 Venous Blood Potassium 3.8 mmol/L (3.6-5.2) 09/18/17 11:00 Urine Color Yellow (YELLOW) 09/18/17 09:30 Urine Appearance Clear (CLEAR) 09/18/17 09:30 Urine pH 5.0 (4.7-8.0) 09/18/17 09:30 Ur Specific [place] >= 1.030 (1.005-1.035) 09/18/17 09:30 Urine Protein 30 mg/dL (<30 mg/dL) H 09/18/17 09:30 Urine Glucose (UA) Negative mg/dL (NEGATIVE) 09/18/17 09:30 Urine Ketones Negative mg/dL (NEGATIVE) 09/18/17 09:30 Urine Blood Trace-intact (NEGATIVE) H 09/18/17 09:30 Urine Nitrate Negative (NEGATIVE) 09/18/17 09:30 Urine Bilirubin Small (NEGATIVE) H 09/18/17 09:30 Urine Urobilinogen 0.2 E.U./dL (<1 E.U./dL) 09/18/17 09:30 Ur Leukocyte Esterase Negative Elizabeth/uL (NEGATIVE) 09/18/17 09:30 Urine RBC 2 - 5 /hpf (0-2) 09/18/17 09:30 Urine WBC 0 - 2 /hpf (0-6) 09/18/17 09:30 Ur Epithelial Cells 1 - 3 /hpf (0-5) 09/18/17 09:30 Amorphous Sediment Moderate 09/18/17 09:30 Urine Bacteria Mod (NEG) 09/18/17 09:30 Alcohol, Quantitative < 10 mg/dL (0-10) 09/18/17 08:50 - Hospital Course Hospital Course: 66 yr Susan female w/ history of CAD w. stents, chronic diarrhea, HTN , gastric bypass 25 yrs ago, R leg DVT, cognitive impairment, dementia & asthma. Pt was brought to to [facility] for increased confusion and hallucination where the patient's daughter Elena ([phone])was the historian. Pt was admitted for Dementia, Altered mental status, Hypothermia, Lactic acidosis, & Sepsis. Pt was found to be in systemic inflammatory response and sepsis was ruled out. Pt treated with IV vanco and cefepime. Medications for her psychotic episodes and advancing mental illness adjusted by Psych. Pt's discharge plan was prolonged due to social issues at home where her daughter is trying to navigate as power of sports attorney but was difficult to contact during her mother's hospital stay. Pt refused sole leveler machine care options at this time and was cleared for discharge home with her daughter. Reviewed: CT head = mild chronic microvascular ischemic changes CXR = WNL ECG = NSR, mildly prolonged QTc - Date & Time of H&P Date of H&P: 09/25/17 Time of H&P: 11:30 Discharge Exam - Head Exam Head Exam: NORMAL INSPECTION - Eye Exam Eye Exam: EOMI, Normal appearance, PERRL Pupil Exam: NORMAL ACCOMODATION, PERRL - ENT Exam ENT Exam: Mucous Membranes Moist - Neck Exam Neck exam: Full Rom - Respiratory Exam Respiratory Exam: Clear to PA & Lateral, NORMAL BREATHING PATTERN - Cardiovascular Exam Cardiovascular Exam: +S1, +S2 - GI/Abdominal Exam GI & Abdominal Exam: Normal Bowel Sounds, Soft - Extremities Exam Extremities exam: full ROM - Back Exam Back exam: NORMAL INSPECTION - Neurological Exam Neurological exam: Alert, CN II-XII Intact, Normal Gait, Oriented x3 - Psychiatric Exam Psychiatric exam: Anxious, Normal Affect - Skin Skin Exam: Dry, Intact, Normal Color, Warm Discharge Plan - Follow Up Plan Condition: GOOD Disposition: HOME/ ROUTINE Instructions: Dementia (Including Alzheimer Disease), Heart Healthy Diet, Dementia (DC), Flu Vaccine Referrals: Shagufta Barreto MD [Primary Care Provider] - <Fariha Olvera - Last Filed: 09/25/17 23:25> Provider - Provider Date of Admission: 09/19/17 20:01 Attending physician: Fariha Olvera MD Primary care physician: Shagufta Barreto MD Hospital Course - Lab Results Lab Results: Most Recent Lab Values WBC 4.5 10^3/ul (4.5-11.0) D 09/22/17 08:50 RBC 3.40 10^6/uL (3.5-6.1) L 09/22/17 08:50 Hgb 11.3 g/dL (12.0-16.0) L 09/22/17 08:50 Hct 34.1 % (36.0-48.0) L 09/22/17 08:50 MCV 100.3 fl (80.0-105.0) 09/22/17 08:50 MCH 33.2 pg (25.0-35.0) 09/22/17 08:50 MCHC 33.1 g/dl (31.0-37.0) 09/22/17 08:50 RDW 14.7 % (11.5-14.5) H 09/22/17 08:50 Plt Count 184 10^3/uL (120.0-450.0) 09/22/17 08:50 MPV 9.1 fl (7.0-11.0) 09/22/17 08:50 Gran % 54.4 % (50.0-68.0) 09/22/17 08:50 Lymph % (Auto) 39.8 % (22.0-35.0) H 09/22/17 08:50 Gordon % (Auto) 4.5 % (1.0-6.0) 09/22/17 08:50 Eos % (Auto) 1.1 % (1.5-5.0) L 09/22/17 08:50 Baso % (Auto) 0.2 % (0.0-3.0) 09/22/17 08:50 Gran # 2.42 (1.4-6.5) 09/22/17 08:50 Lymph # (Auto) 1.8 (1.2-3.4) 09/22/17 08:50 Gordon # (Auto) 0.2 (0.1-0.6) 09/22/17 08:50 Eos # (Auto) 0.1 (0.0-0.7) 09/22/17 08:50 Baso # (Auto) 0.01 K/mm3 (0.0-2.0) 09/22/17 08:50 PT 11.6 SECONDS (9.4-12.5) 09/18/17 08:50 INR 1.01 (0.93-1.08) 09/18/17 08:50 APTT 27.9 Seconds (25.1-36.5) 09/18/17 08:50 pO2 280 mm/Hg (30-55) H 09/18/17 11:00 VBG pH 7.36 (7.32-7.43) 09/18/17 11:00 VBG pCO2 41.0 (40-60) 09/18/17 11:00 VBG HCO3 23.2 mmol/l (21-28) 09/18/17 11:00 VBG Total CO2 24.5 mmol.L (22-28) 09/18/17 11:00 VBG O2 Sat (Calc) 100.4 % (40-65) H 09/18/17 11:00 VBG Base Excess -2.2 mmol/L (0.0-2.0) L 09/18/17 11:00 VBG Potassium 3.8 mmol/L (3.6-5.2) 09/18/17 11:00 Sodium 137.0 mmol/L (132-148) 09/18/17 11:00 Chloride 111.0 mmol/L (98-107) H 09/18/17 11:00 Glucose 80 mg/dl (65-105) 09/18/17 11:00 Lactate 1.4 mmol/L (0.7-2.1) 09/18/17 11:00 FiO2 21.0 % 09/18/17 11:00 Sodium 139 mmol/L (132-148) 09/22/17 08:50 Potassium 4.5 mmol/L (3.6-5.0) 09/22/17 08:50 Chloride 106 mmol/L (98-107) 09/22/17 08:50 Carbon Dioxide 26 mmol/L (21-33) 09/22/17 08:50 Anion Gap 11 (10-20) 09/22/17 08:50 BUN 6 mg/dL (7-21) L 09/22/17 08:50 Creatinine 0.8 mg/dl (0.7-1.2) 09/22/17 08:50 Est GFR ( Amer) > 60 09/22/17 08:50 Est GFR (Non-Af Amer) > 60 09/22/17 08:50 POC Glucose (mg/dL) 103 mg/dL (65-110) 09/18/17 07:35 Random Glucose 115 mg/dL (70-110) H 09/22/17 08:50 Hemoglobin A1c 4.9 % (4.2-6.5) 09/21/17 06:40 Calcium 9.7 mg/dL (8.4-10.5) 09/22/17 08:50 Phosphorus 3.7 mg/dL (2.5-4.5) 09/22/17 08:50 Magnesium 1.8 mg/dL (1.7-2.2) 09/22/17 08:50 Iron 34 ug/dL (45-180) L 09/21/17 06:40 TIBC 203 ug/dL (265-497) L 09/21/17 06:40 % Saturation 17 % (20-55) L 09/21/17 06:40 Ferritin 232.0 ng/mL 09/22/17 08:50 Total Bilirubin 0.2 mg/dL (0.2-1.3) 09/22/17 08:50 AST 28 U/L (14-36) 09/22/17 08:50 ALT 30 U/L (7-56) 09/22/17 08:50 Alkaline Phosphatase 64 U/L (38-126) 09/22/17 08:50 Ammonia 17 umol/L (9-33) 09/18/17 08:50 Lactate Dehydrogenase 472 U/L (333-699) 09/18/17 08:50 Total Creatine Kinase 54 U/L (35-230) 09/18/17 08:50 Troponin I < 0.01 ng/mL D 09/18/17 08:50 NT-Pro-B Natriuret Pep 41.4 pg/mL (0-450) 09/25/17 06:30 Total Protein 7.0 g/dL (5.8-8.3) 09/22/17 08:50 Albumin 3.7 g/dL (3.0-4.8) 09/22/17 08:50 Globulin 3.3 gm/dL 09/22/17 08:50 Albumin/Globulin Ratio 1.1 (1.1-1.8) 09/22/17 08:50 Triglycerides 121 mg/dL (35-160) 09/21/17 06:40 Cholesterol 128 mg/dL (130-200) L 09/21/17 06:40 LDL Cholesterol Direct 46 mg/dL (0-129) 09/21/17 06:40 HDL Cholesterol 53 mg/dL (29-60) 09/21/17 06:40 Vitamin B12 541 pg/mL (239-931) 09/22/17 08:50 Methylmalonic Acid 169 nmol/L (87-318) 09/22/17 10:20 Folate 9.4 ng/mL 09/22/17 08:50 Homocysteine 19.0 umol/L ( <10.4) H 09/22/17 10:20 Procalcitonin < 0.05 NG/ML (0.19-0.49) L 09/18/17 12:00 TSH 3rd Generation 0.36 mIU/mL (0.46-4.68) L 09/21/17 06:40 Venous Blood Potassium 3.8 mmol/L (3.6-5.2) 09/18/17 11:00 Urine Color Yellow (YELLOW) 09/18/17 09:30 Urine Appearance Clear (CLEAR) 09/18/17 09:30 Urine pH 5.0 (4.7-8.0) 09/18/17 09:30 Ur Specific [place] >= 1.030 (1.005-1.035) 09/18/17 09:30 Urine Protein 30 mg/dL (<30 mg/dL) H 09/18/17 09:30 Urine Glucose (UA) Negative mg/dL (NEGATIVE) 09/18/17 09:30 Urine Ketones Negative mg/dL (NEGATIVE) 09/18/17 09:30 Urine Blood Trace-intact (NEGATIVE) H 09/18/17 09:30 Urine Nitrate Negative (NEGATIVE) 09/18/17 09:30 Urine Bilirubin Small (NEGATIVE) H 09/18/17 09:30 Urine Urobilinogen 0.2 E.U./dL (<1 E.U./dL) 09/18/17 09:30 Ur Leukocyte Esterase Negative Elizabeth/uL (NEGATIVE) 09/18/17 09:30 Urine RBC 2 - 5 /hpf (0-2) 09/18/17 09:30 Urine WBC 0 - 2 /hpf (0-6) 09/18/17 09:30 Ur Epithelial Cells 1 - 3 /hpf (0-5) 09/18/17 09:30 Amorphous Sediment Moderate 09/18/17 09:30 Urine Bacteria Mod (NEG) 09/18/17 09:30 Alcohol, Quantitative < 10 mg/dL (0-10) 09/18/17 08:50 - Hospital Course Hospital Course: pt is seen and examined at bed side , looking comfortable , agreed all above . d /d with diamond picker . chart . labs and meds noted . will f/u
[2017-09-26 06:59] LABS: HEMOGLOBIN 11.6 g/dL (12.0-16.0); MEAN CELL VOLUME 99.7 fl (80.0-105.0); MEAN CORPUSCULAR HEMOGLOBIN 33.4 pg (25.0-35.0); MEAN CORPUSCULAR HGB CONC 33.5 g/dl (31.0-37.0); MEAN PLATELET VOLUME 8.9 fl (7.0-11.0); RBC 3.47 10^6/uL (3.5-6.1); RED CELL DISTRIBUTION WIDTH 14.8 % (11.5-14.5); WHITE BLOOD COUNT 4.1 10^3/ul (4.5-11.0)
[2017-09-26] MEDS: Potassium Chloride 20 mEq ER Tab PO SCH (10:51)
[2017-09-26] MEDS: Digoxin 125 mcg (0.125 mg) Tab PO SCH (16:32)
[2017-09-26 16:36] VITALS: PULSE 70
[2017-09-26 16:50] VITALS: TEMP 98.1; O2SAT 100
--- NOTE | 2017-09-26 23:41 | PN ---
DATE: SUBJECTIVE: The patient is a 66-year-old female. The patient seen and examined at the bedside, sitting comfortable, but getting episodes of confusion, especially at night, she is having hallucinations and delusions. Time to contact the patient's daughter. The patient's daughter is the power food aide for the patient. She has discussion done with director of social workers, Bernadine, that she will pick her mother yesterday and but the patient is ready for discharge, but she cannot leave alone. I cannot discharge her alone, that is not safe discharge, because the night is not comfortable for the patient, and the patient had daughter, I hope daughter will pick her today. PHYSICAL EXAMINATION: VITAL SIGNS: Temperature 98.0, pulse 72, respiratory rate 20, blood pressure 124/78, pulse oximetry of 100. HEENT: Head: Normocephalic and atraumatic. Eyes: PERRLA. Extraocular muscles intact. Conjunctivae clear. Nose: Patent. Mucous membranes moist. NECK: Supple. No carotid bruit. No JVD or thyromegaly. CHEST: Bilaterally symmetrical. HEART: S1 and S2 positive. LUNGS: Clear to auscultation. ABDOMEN: Soft. Bowel sounds present. No organomegaly. EXTREMITIES: No edema. No cyanosis. NEUROLOGIC: The patient is awake and alert. Moving all four extremities. No focal deficits. MEDICATIONS: Tylenol, Lipitor, Plavix, digoxin, Aricept, Namenda, potassium, Inderal, Seroquel. LABORATORY DATA: White blood cells 4.1, hemoglobin 11.6, hematocrit 34.6, platelets 184. Sodium 139, potassium 4.5, BUN 6, creatinine 0.8, glucose of 115, iron 34. ASSESSMENT AND PLAN: Ms. Willow Cast is a 66-year-old lady with leukopenia, anemia, hyperglycemia, iron deficiency, proteinuria, hematuria, is seen by the surgery center administrator for anemia. Dr. Garcia, Infectious Disease. Sometimes seen by house physician because of her night problem. I will put a reconsult with Dr. Carla Wilkinson, psychiatrist and neurologist to work with the patient's situation. Gastrointestinal and deep venous thrombosis prophylaxis. Repeat labs. We will follow up. Fariha Olvera MD [facility] # [phone] HOMERO
[2017-09-27 08:34] VITALS: BP 112/65; PULSE 51; RESP 20
[2017-09-27] MEDS: Potassium Chloride 20 mEq ER Tab PO SCH (10:38)
--- NOTE | 2017-09-27 21:18 | PN ---
DATE: SUBJECTIVE: Medical team consulted this short story writer for a followup recommendation. The patient is scheduled for discharge today. The patient presented very well. The patient was alert, pleasant, cooperative. The patient does not remember who is her outpatient psychiatrist. This short story writer provided the patient with a list of the local psychiatrists and services. This short story writer also provided the patient with the Seroquel prescription for another 2 weeks 50 mg at the morning time and at the nighttime, and was advised to take medication as prescribed. OBJECTIVE: Labs reviewed. Urine reviewed. The patient is not in any distress. MENTAL STATUS EXAMINATION: The patient appears to be well-groomed, intermittent eye contact. Speech was normal rate. The patient has some memory problems. Mood described as, "I feel fine and happy to go home." Affect is reactive, mood congruent. Thought process seems to be circumstantial at times. Thought content, the patient denied visual, auditory or tactile hallucinations. Denied paranoid ideation. The patient denied thoughts of harming herself or others. Denied intent or plan. Insight and judgment seems to be fair. Impulses are well controlled. IMPRESSION: Most likely the patient has early signs of dementia. The patient has a history of mood disorder, which improved. PLAN: This short story writer provided the patient with prescription of Seroquel 50 mg twice a day for another 2 weeks. The patient was recommended to be followed up with outpatient psychiatrist. The patient deemed not to be in any imminent danger to self or others. The patient has a supportive daughter who is willing to accept her back home. Please see notes for more detailed information. Should you have any questions, give me a call back. This short story writer will sign off. Thank you very much for letting me participate in care of your patient. Carla Wilkinson MD
--- NOTE | 2017-09-28 08:56 | DS ---
CHIEF COMPLAINT: Altered mental status. HISTORY OF PRESENT ILLNESS: Ms. Willow Cast is a 66-year-old female, well known to me from previous 2 admissions, came in the emergency room with the daughter, with altered mental status. Patient was more confused than usual as per daughter. No fever, no chills. No nausea, vomiting or diarrhea. No headache, no dizziness. We did CAT scan of the head. Seen by the neurologist Dr. Card. Psychiatrist consult was called because of the patient's delirious state. Seen by the house physician, Dr. Anna Chang also. To rule out sepsis, we called and consulted with Dr. Garcia. He saw the patient. The patient improved and discharged home today with the daughter. PAST MEDICAL HISTORY: Congestive heart failure, hypertension, asthma, diabetes mellitus, dementia, history of fall, history of cardiac catheterization, coronary artery disease and coronary artery stents. FAMILY HISTORY: Father and mother, noncontributory. HABITS: Former smoker, not now smoking. No drugs. Alcohol, socially. ALLERGIES: PATIENT IS NOT ALLERGIC TO ANY MEDICATIONS. HOME MEDICATIONS: Reviewed by me. REVIEW OF SYSTEMS: Patient was seen and examined on the bedside early in the morning, looking comfortable. No nausea, vomiting or diarrhea. No headache, no dizziness. History of gastric bypass. ASSESSMENT AND PLAN: Once in a while getting diarrhea but now it is stable, came with altered mental status, history of leukopenia, anemia, hyperglycemia, iron-deficiency, proteinuria and hematuria. Because of anemia, patient was seen by the child day care teacher. Dr. Garcia gave antibiotics in the beginning. Seen by the psychiatrist. According to Dr. Carla Wilkinson, patient has signs of early dementia, has history of mood disorder, which improved. She wants to discharge the patient with Seroquel 50 mg twice a day for another 2 weeks. Patient is recommended to follow up with psychiatrist. According to psychiatrist, patient deemed not to be in any imminent danger to herself or others. Patient had a supportive system. Her daughter is willing to accept her back home today, so patient will be discharged to home with daughter. Will follow up with her own primary care physician, neurologist and psychiatrist. Fariha Olvera MD [facility] # [id number]
== END 2017-09-27 12:42 | disposition home or self-care (01) | DRG 884 ==
LOC: ED 07:26 → ERH 10:44 → 5RNO 11:34 → OBSVTOIN 09-19 20:01
PROVIDERS: ADMIT Internal Medicine; ATTEND Internal Medicine
DX: F03.90 Unspecified dementia, unspecified severity, without behavioral disturbance, psychotic disturbance, mood disturbance, and anxiety (principal); E87.2 Acidosis; I11.0 Hypertensive heart disease with heart failure; R65.10 Systemic inflammatory response syndrome (SIRS) of non-infectious origin without acute organ dysfunction; F32.3 Major depressive disorder, single episode, severe with psychotic features; F05 Delirium due to known physiological condition; I50.9 Heart failure, unspecified; E11.65 Type 2 diabetes mellitus with hyperglycemia; I25.10 Atherosclerotic heart disease of native coronary artery without angina pectoris; E83.39 Other disorders of phosphorus metabolism; D50.9 Iron deficiency anemia, unspecified; J45.909 Unspecified asthma, uncomplicated; E05.90 Thyrotoxicosis, unspecified without thyrotoxic crisis or storm; F41.1 Generalized anxiety disorder; R80.9 Proteinuria, unspecified; Z86.718 Personal history of other venous thrombosis and embolism; Z95.5 Presence of coronary angioplasty implant and graft; Z91.5 Personal history of self-harm; Z98.84 Bariatric surgery status; Z87.891 Personal history of nicotine dependence

== ENCOUNTER 2017-11-15 12:47 | Inpatient (IN) | payer MEDICARE, OTHER ==
[2017-11-15 12:51] VITALS: BMI 22.8
--- NOTE | 2017-11-15 13:26 | ED PDOC ---
Arrival/HPI - General Chief Complaint: Psychiatric Evaluation Time Seen by Provider: 11/15/17 12:56 Historian: Patient, Family - History of Present Illness Narrative History of Present Illness (Text): 11/15/17 13:27 A 66 year old female, whose past medical history includes Alzheimer's disease and C. diff, presents to the emergency department complaining of visual hallucinations and depression. Patient reports she sees images that scare her. Patient reports she has thoughts of hurting herself, but no plan. Patient notes she was referred to come to the emergency department for psych evaluation from PMD. Patient reports she is not compliant with Seroquel medication because she notes is not working. Notes right hip pain s/p fall from weeks ago. Patient denies any fever, Shortness of breath, dysuria, homicidal ideation, auditory hallucinations or any other complaints at this time. PMD: Dr. Olvera Symptom Onset: Sudden Symptom Course: Unchanged Activities at Onset: Rest Context: Home Past Medical History - Provider Review Nursing Documentation Reviewed: Yes - Past History Past History: No Previous - Infectious Disease Hx of Infectious Diseases: None - Tetanus Immunization Tetanus Immunization: Unknown - Past Medical History Past Medical History: No Previous - Cardiac Hx Cardiac Disorders: Yes Hx Congestive Heart Failure: Yes Hx Hypertension: Yes Other/Comment: R Leg DVT - Pulmonary Hx Respiratory Disorders: Yes Hx Asthma: Yes - Neurological Hx Alzheimer's Disease: Yes Hx Dementia: Yes - HEENT Hx HEENT Disorder: Yes Other/Comment: glasses - Renal Hx Renal Disorder: No - Endocrine/Metabolic Hx Diabetes Mellitus Type 2: Yes - Hematological/Oncological Hx Blood Disorders: No Hx AIDS: No Hx Anemia: No Hx Cancer: No Hx Chemotherapy: No Hx Cirrhosis: No Hx Hepatitis A: No Hx Hepatitis B: No Hx Hepatitis C: No Hx Metastasis: No Hx Shingles: No Hx Unexplained Bleeding: No - Integumentary Hx Dermatological Disorder: No - Musculoskeletal/Rheumatological Hx Musculoskeletal Disorders: Yes Hx Falls: Yes - Gastrointestinal Hx Gastrointestinal Disorders: No - Genitourinary/Gynecological Hx Genitourinary Disorders: No - Psychiatric Hx Depression: Yes Hx Emotional Abuse: No Hx Physical Abuse: No Hx Substance Use: No - Past Surgical History Past Surgical History: No Previous - Surgical History Hx Cardiac Catheterization: Yes Hx Coronary Stent: Yes - Anesthesia Hx Anesthesia: Yes Hx Anesthesia Reactions: No Hx Malignant Hyperthermia: No - Suicidal Assessment Feels Threatened In Home Enviroment: No Family/Social History - Physician Review Nursing Documentation Reviewed: Yes Family/Social History: No Known Family HX Smoking Status: Former Smoker Hx Alcohol Use: No Hx Substance Use: No Hx Substance Use Treatment: No Allergies/Home Meds Allergies/Adverse Reactions: Allergies No Known Allergies Allergy (Verified 04/12/17 15:36) Review of Systems - Physician Review All systems were reviewed & negative as marked: Yes - Review of Systems Constitutional: absent: Fevers Respiratory: absent: SOB Genitourinary Female: absent: Dysuria Musculoskeletal: Other (right hip pain) Psychiatric: Depression, Other (visual hallucinations; no homicidal ideation; no auditory hallucinations) Physical Exam Vital Signs Reviewed: Yes Vital Signs Temp Pulse Resp BP Pulse Ox 11/15/17 16:05 98.5 F 88 18 114/78 99 11/15/17 12:57 98.5 F 91 H 18 125/80 96 Temperature: Afebrile Blood Pressure: Normal Pulse: Regular Respiratory Rate: Normal Appearance: Positive for: Well-Appearing, Non-Toxic, Comfortable Pain Distress: None Mental Status: Positive for: Alert and Oriented X 3 - Systems Exam Head: Present: Atraumatic, Normocephalic Pupils: Present: PERRL Extroacular Muscles: Present: EOMI Conjunctiva: Present: Normal Mouth: Present: Moist Mucous Membranes Neck: Present: Normal Range of Motion Respiratory/Chest: Present: Clear to Auscultation, Good Air Exchange. No: Respiratory Distress, Accessory Muscle Use Cardiovascular: Present: Regular Rate and Rhythm, Normal S1, S2. No: Murmurs Abdomen: No: Tenderness, Distention, Peritoneal Signs Back: Present: Normal Inspection Upper Extremity: Present: Normal Inspection. No: Cyanosis, Edema Lower Extremity: Present: Other (right hip tenderness) Neurological: Present: GCS=15, CN II-XII Intact, Speech Normal Skin: Present: Warm, Dry, Normal Color. No: Rashes Psychiatric: Present: Alert, Oriented x 3, Normal Insight, Normal Concentration Medical Decision Making ED Course and Treatment: 11/15/17 13:24 Impression: A 66 year old female with visual hallucinations, depression and right hip pain s /p fall from weeks ago. Patient presents to the emergency department for psych evaluation. Plan: -- chest xray -- labs -- Urinalysis -- Radiology right hip -- Reassess and disposition Prior Visits: Notes and results from previous visits were reviewed. Patient last reported to the emergency department on 09/18/17 for AMS. Progress Notes: 11/15/17 14:23 chest xray Creator : Con Short MD FINDINGS: LUNGS: No active pulmonary disease. PLEURA: No significant pleural effusion identified. No pneumothorax apparent. CARDIOVASCULAR: No radiographic findings to suggest acute or significant cardiovascular disease. OSSEOUS STRUCTURES: No significant abnormalities. VISUALIZED UPPER ABDOMEN: Normal. IMPRESSION: No active disease. No significant interval change compared to the prior examination(s). 11/15/17 14:45 Pelvis and both hips Creator : Joel Bush MD FINDINGS: Bilateral degenerative changes are seen with osteophytes arising from the inferior acetabulum. Small osteophytes arise from the superior acetabulum. There is mild joint space narrowing. IMPRESSION: Degenerative changes in both hips. No evidence of fracture 11/15/17 15:13 Labs significant for hypokalemia. Replacement ordered. UA is also positive and UCX sent. UA not thought to be source of worsening dementia and depression. However, replacement of hypokalemia will likely not be completed till tomorrow. Spoke to [facility] who had initially accepted patient but will now be on consult and accept patient after hypokalemia resolves. Spoke to Dr. Olvera who will medically manage her. Dr. Aguirre on consult. Patient to be transferred to [facility] for voluntary admission when K normalizes. 11/15/17 16:56 - Lab Interpretations Lab Results: 11/15/17 14:20 11/15/17 14:20 Lab Results 11/15/17 15:00: Urine Color Yellow, Urine Appearance Turbid, Urine pH 6.0, Ur Specific [place] 1.025, Urine Protein 100 H, Urine Glucose (UA) Negative, Urine Ketones Negative, Urine Blood Small H, Urine Nitrate Negative, Urine Bilirubin Negative, Urine Urobilinogen 0.2, Ur Leukocyte Esterase Large H, Urine RBC 0 - 2 , Urine WBC Tntc, Ur Epithelial Cells Many, Urine Bacteria Few 11/15/17 14:20: Alcohol, Quantitative < 10 11/15/17 14:20: Salicylates < 1 L, Acetaminophen < 10.0 L 11/15/17 14:20: Sodium 146, Potassium 2.8 L* D, Chloride 105, Carbon Dioxide 29 , Anion Gap 15, BUN 25 H, Creatinine 1.1, Est GFR ( Amer) > 60, Est GFR ( Non-Af Amer) 50, Random Glucose 128 H, Calcium 8.8, Magnesium 1.7, Total Bilirubin 0.3, AST 30, ALT 26, Alkaline Phosphatase 75, Total Protein 6.9, Albumin 3.9, Globulin 3.0, Albumin/Globulin Ratio 1.3 11/15/17 14:20: WBC 4.9, RBC 3.61, Hgb 11.3 L, Hct 34.0 L, MCV 94.2 D, MCH 31.3 , MCHC 33.2, RDW 14.3, Plt Count 164, MPV 9.2, Gran % 65.3, Lymph % (Auto) 28.6 , [place] % (Auto) 5.9, Eos % (Auto) 0.0 L, Baso % (Auto) 0.2, Gran # 3.19, Lymph # (Auto) 1.4, [place] # (Auto) 0.3, Eos # (Auto) 0.0, Baso # (Auto) 0.01 I have reviewed the lab results: Yes - RAD Interpretation Radiology Orders: 11/15/17 13:02 Hip Bi with Pelvis Fall Protocol [HIP MIN 2V W/ PELVIS BATOOL] [RAD] Stat 11/15/17 13:03 CHEST TWO VIEWS (PA/LAT) [RAD] Stat - Medication Orders Current Medication Orders: Potassium Chloride (Potassium Chloride 20 Meq/100 Ml) 20 meq in 100 mls @ 50 mls/hr IVPB Q2H JOANNE Stop: 11/15/17 18:59 Last Admin: 11/15/17 16:07 Dose: 50 mls/hr eMAR Start Stop Document 11/15/17 16:07 SARAH (Rec: 11/15/17 16:08 SARAH [id number]) Intravenous Solution Start Date 11/15/17 Start Time 16:00 End Date 11/15/17 End time 18:00 Total Infusion Time 120 Discontinued Medications Cephalexin Monohydrate (Keflex) 500 mg PO STAT STA PRN Reason: Protocol Stop: 11/15/17 15:41 Last Admin: 11/15/17 16:00 Dose: 500 mg Potassium Chloride (Potassium Chloride Oral Soln) 40 meq PO STAT STA Stop: 11/15/17 14:54 Last Admin: 11/15/17 16:00 Dose: 40 meq - Scribe Statement The provider has reviewed the documentation as recorded by the Ashleyibraúl Corrales All medical record entries made by the Ashleyibraúl were at my direction and personally dictated by me. I have reviewed the chart and agree that the record accurately reflects my personal performance of the history, physical exam, medical decision making, and the department course for this patient. I have also personally directed, reviewed, and agree with the discharge instructions and disposition. Disposition/Present on Arrival - Present on Arrival Any Indicators Present on Arrival: No History of DVT/PE: No History of Uncontrolled Diabetes: No Urinary Catheter: No History of Decub. Ulcer: No History Surgical Site Infection Following: None - Disposition Have Diagnosis and Disposition been Completed?: Yes Diagnosis: Hypokalemia, Major depressive disorder, recurrent severe without psychotic features, Dementia, UTI (urinary tract infection) Disposition: HOSPITALIZED Disposition Time: 15:44 Patient Plan: Admission Patient Problems: Current Active Problems Problem Status Onset Dementia Acute Hypokalemia Acute Major depressive disorder, recurrent severe without psychotic features Acute UTI (urinary tract infection) Acute Condition: FAIR
--- NOTE | 2017-11-15 14:21 | RAD ---
HISTORY: psych COMPARISON: 09/18/2017 TECHNIQUE: Chest PA and lateral FINDINGS: LUNGS: No active pulmonary disease. PLEURA: No significant pleural effusion identified. No pneumothorax apparent. CARDIOVASCULAR: No radiographic findings to suggest acute or significant cardiovascular disease. OSSEOUS STRUCTURES: No significant abnormalities. VISUALIZED UPPER ABDOMEN: Normal. OTHER FINDINGS: None. IMPRESSION: No active disease. No significant interval change compared to the prior examination(s).
[2017-11-15 14:38] LABS: BASO # 0.01 K/mm3 (0.0-2.0); BASO % 0.2 % (0.0-3.0); GRAN # 3.19 (1.4-6.5); GRAN % 65.3 % (50.0-68.0); HEMOGLOBIN 11.3 g/dL (12.0-16.0); LYMPH # 1.4 (1.2-3.4); LYMPH % 28.6 % (22.0-35.0); MEAN CELL VOLUME 94.2 fl (80.0-105.0); MEAN CORPUSCULAR HEMOGLOBIN 31.3 pg (25.0-35.0); MEAN CORPUSCULAR HGB CONC 33.2 g/dl (31.0-37.0); MEAN PLATELET VOLUME 9.2 fl (7.0-11.0); MONO # 0.3 (0.1-0.6); MONO % 5.9 % (1.0-6.0); RBC 3.61 10^6/uL (3.5-6.1); RED CELL DISTRIBUTION WIDTH 14.3 % (11.5-14.5); WHITE BLOOD COUNT 4.9 10^3/ul (4.5-11.0)
--- NOTE | 2017-11-15 14:44 | RAD ---
PROCEDURE: Pelvis and both hips HISTORY: R hip pain after fall COMPARISON: TECHNIQUE: Two views of each hip and a single view of the pelvis FINDINGS: Bilateral degenerative changes are seen with osteophytes arising from the inferior acetabulum. Small osteophytes arise from the superior acetabulum. There is mild joint space narrowing. IMPRESSION: Degenerative changes in both hips. No evidence of fracture
[2017-11-15 14:50] LABS: ACETAMINOPHEN < 10.0 ug/ml (10.0-20.0); SALICYLATE < 1 mg/dL (2.0-20.0)
[2017-11-15 14:53] LABS: ALB/GLOB RATIO 1.3 (1.1-1.8); ALBUMIN 3.9 g/dL (3.0-4.8); ALT/SGPT 26 U/L (7-56); AST/SGOT 30 U/L (14-36); BLOOD UREA NITROGEN 25 mg/dL (7-21); CALCIUM 8.8 mg/dL (8.4-10.5); GFR NON-AFRICAN AMERICAN 50
[2017-11-15] MEDS ORDERED: Potassium Chloride 40 mEq/30 ml LIQ UD PO STA (14:53)
[2017-11-15 15:38] LABS: URINE BILIRUBIN NEGATIVE (NEGATIVE); URINE BLOOD SMALL (NEGATIVE); URINE GLUCOSE (UA) NEGATIVE (NEGATIVE); URINE LEUKOCYTE ESTERASE LARGE Leu/uL (NEGATIVE); URINE PROTEIN 100 mg/dL (<30 mg/dL); URINE UROBILINOGEN 0.2 E.U./dL (<1 E.U./dL)
[2017-11-15 15:39] LABS: URINE APPEARANCE TURBID (CLEAR); URINE COLOR YELLOW (YELLOW)
[2017-11-15 15:45] LABS: URINE BACTERIA FEW (NEG); URINE EPITHELIAL CELLS MANY /hpf (0-5); URINE RBC 0 - 2 /hpf (0-2); URINE WBC TNTC /hpf (0-6)
[2017-11-16] MEDS ORDERED: Pneumococcal 23-Valent Vaccine IM ONE (00:09)
[2017-11-16] MEDS ORDERED: POTASSIUM CHLORIDE 40 MEQ PO SCH (10:00)
[2017-11-16] MEDS ORDERED: PROPRANOLOL HCL 40 MG PO SCH (10:00)
[2017-11-16] MEDS ORDERED: QUETIAPINE FUMARATE 50 MG PO SCH (10:00)
--- NOTE | 2017-11-16 10:10 | CARD ---
APPROVED REPORT EKG Measurement Heart [id number] <Conclusion> Normal sinus rhythm Possible septal infarct, age unknown. QS pattern V 1,2 is new since 09/18/17 NSSTW changes Prolonged QTc
[2017-11-16] MEDS: Digoxin 125 mcg (0.125 mg) Tab PO SCH (10:24)
[2017-11-16] MEDS: Potassium Chloride 20 mEq ER Tab PO SCH (10:26)
[2017-11-16 11:34] LABS: IRON 90 ug/dL (45-180)
[2017-11-16 11:45] LABS: % IRON SATURATION 28 % (20-55); TOTAL IRON BINDING CAPACITY 321 ug/dL (265-497)
[2017-11-16 15:41] LABS: ALB/GLOB RATIO 1.2 (1.1-1.8); ALT/SGPT 25 U/L (7-56); AST/SGOT 35 U/L (14-36); BLOOD UREA NITROGEN 19 mg/dL (7-21); GFR NON-AFRICAN AMERICAN > 60
[2017-11-16 18:00] LABS: FOLATE 7.7 ng/mL
--- NOTE | 2017-11-16 18:21 | CP.PCM.CON ---
History of Present Illness - History of Present Illness History of Present Illness: Infectious Disease Consultation: November 16, 2017 66 yo female with PMHx of Alzheimer's and C. Diff infection history presenting with complaints of visual hallucinations and depression. ID called for positive blood cultures. Possible UTI based on urinalysis. She does complain of urinary frequency. PMHx: CAD, HTN, chronic diarrhea, cognitive impairment, DVT, asthma, DM PSHx: Cardiac Cath with stenting. Gastric bypass. Allergies: NKDA Social Hx: No illicit drug use Active Medications Atorvastatin Calcium (Lipitor) 80 mg PO DAILY COUNT INCLUDES THE [facility] Last Admin: 11/16/17 10:26 Dose: 80 mg Clopidogrel Bisulfate (Plavix) 75 mg PO DAILY COUNT INCLUDES THE [facility] Last Admin: 11/16/17 10:25 Dose: 75 mg Digoxin (Digoxin) 0.125 mg PO QAM COUNT INCLUDES THE [facility] Last Admin: 11/16/17 10:24 Dose: 0.125 mg Donepezil HCl (Aricept) 10 mg PO HS COUNT INCLUDES THE [facility] Last Admin: 11/15/17 22:32 Dose: 10 mg Duloxetine HCl (Cymbalta) 20 mg PO DAILY COUNT INCLUDES THE [facility] Last Admin: 11/16/17 10:25 Dose: 20 mg Cefepime HCl (Maxipime 1gm) 1 gm in 100 mls @ 100 mls/hr IVPB Q12 JOANNE PRN Reason: Protocol Memantine (Namenda) 5 mg PO DAILY COUNT INCLUDES THE [facility] Last Admin: 11/16/17 10:25 Dose: 5 mg Mirtazapine (Remeron) 15 mg PO HS PRN PRN Reason: Insomnia Potassium Chloride (K-Dur 20 Meq Er Tab) 40 meq PO BRK COUNT INCLUDES THE [facility] Last Admin: 11/16/17 10:26 Dose: 40 meq Propranolol HCl (Inderal) 40 mg PO DAILY COUNT INCLUDES THE [facility] Last Admin: 11/16/17 10:24 Dose: 40 mg Quetiapine Fumarate (Seroquel) 12.5 mg PO HS JOANNE PRN Reason: Protocol Last Admin: 11/15/17 22:32 Dose: 12.5 mg Quetiapine Fumarate (Seroquel) 50 mg PO BID COUNT INCLUDES THE [facility] Last Admin: 11/16/17 10:24 Dose: 50 mg Thiamine HCl (Vitamin B1 Tab) 100 mg PO Q8H COUNT INCLUDES THE [facility] Last Admin: 11/16/17 13:33 Dose: 100 mg Family Hx: none given ROS: No fevers, chills, nausea, vomiting, diarrhea, headaches, dizziness, chest pain , abdominal pain, melena, hematuria, hematemesis, hematochezia History of depression. Past Patient History - Infectious Disease Hx of Infectious Diseases: None - Tetanus Immunizations Tetanus Immunization: Unknown - Past Medical History & Family History Past Medical History?: Yes - Past Social History Smoking Status: Former Smoker - CARDIAC Hx Cardiac Disorders: Yes Hx Congestive Heart Failure: Yes Hx Hypercholesterolemia: Yes Hx Hypertension: Yes Hx Peripheral Edema: Yes (rle +1) Other/Comment: R Leg DVT - PULMONARY Hx Respiratory Disorders: Yes Hx Asthma: Yes - NEUROLOGICAL Hx Neurological Disorder: Yes (memory loss) Hx Alzheimer's Disease: Yes Hx Dementia: Yes - HEENT Hx HEENT Problems: Yes Other/Comment: glasses - RENAL Hx Chronic Kidney Disease: No - ENDOCRINE/METABOLIC Hx Diabetes Mellitus Type 2: Yes - HEMATOLOGICAL/ONCOLOGICAL Hx Blood Disorders: No Hx AIDS: No Hx Anemia: No Hx Cancer: No Hx Chemotherapy: No Hx Cirrhosis: No Hx Hepatitis A: No Hx Hepatitis B: No Hx Hepatitis C: No Hx Metastesis: No Hx Shingles: No Hx Unexplained Bleeding: No - INTEGUMENTARY Hx Dermatological Problems: No - MUSCULOSKELETAL/RHEUMATOLOGICAL Hx Musculoskeletal Disorders: Yes Hx Arthritis: Yes Hx Falls: Yes (1 month and 1 week ago) Hx Unsteady Gait: Yes - GASTROINTESTINAL Hx Gastrointestinal Disorders: Yes (c dif 08/24/17) Hx Gastroesophageal Reflux: Yes - GENITOURINARY/GYNECOLOGICAL Hx Genitourinary Disorders: Yes Hx Hematuria: Yes ("sometimes") - PSYCHIATRIC Hx Depression: Yes Hx Emotional Abuse: No Hx Hallucinations: Yes Hx Physical Abuse: No Hx Substance Use: No - SURGICAL HISTORY Hx Surgeries: Yes Hx Cardiac Catheterization: Yes Hx Coronary Stent: Yes Hx Gastric Bypass Surgery: Yes (2002 with weight loss as per pt) Other/Comment: had sx for hammertoes both feet as per pt but hammertoes noted both feet toes 2 3 4 at present time, sx to remove benign tumor bottom of foot - ANESTHESIA Hx Anesthesia: Yes Hx Anesthesia Reactions: No Hx Malignant Hyperthermia: No Meds Allergies/Adverse Reactions: Allergies Allergy/AdvReac Type Severity Reaction Status Date / Time No Known Allergies Allergy Verified 04/12/17 15:36 - Medications Medications: Current Medications Atorvastatin Calcium (Lipitor) 80 mg PO DAILY JOANNE Last Admin: 11/16/17 10:26 Dose: 80 mg Clopidogrel Bisulfate (Plavix) 75 mg PO DAILY COUNT INCLUDES THE [facility] Last Admin: 11/16/17 10:25 Dose: 75 mg Digoxin (Digoxin) 0.125 mg PO QAM COUNT INCLUDES THE [facility] Last Admin: 11/16/17 10:24 Dose: 0.125 mg Donepezil HCl (Aricept) 10 mg PO HS COUNT INCLUDES THE [facility] Last Admin: 11/15/17 22:32 Dose: 10 mg Duloxetine HCl (Cymbalta) 20 mg PO DAILY COUNT INCLUDES THE [facility] Last Admin: 11/16/17 10:25 Dose: 20 mg Cefepime HCl (Maxipime 1gm) 1 gm in 100 mls @ 100 mls/hr IVPB Q12 COUNT INCLUDES THE [facility] PRN Reason: Protocol Memantine (Namenda) 5 mg PO DAILY COUNT INCLUDES THE [facility] Last Admin: 11/16/17 10:25 Dose: 5 mg Mirtazapine (Remeron) 15 mg PO HS PRN PRN Reason: Insomnia Potassium Chloride (K-Dur 20 Meq Er Tab) 40 meq PO BRK COUNT INCLUDES THE [facility] Last Admin: 11/16/17 10:26 Dose: 40 meq Propranolol HCl (Inderal) 40 mg PO DAILY COUNT INCLUDES THE [facility] Last Admin: 11/16/17 10:24 Dose: 40 mg Quetiapine Fumarate (Seroquel) 12.5 mg PO HS COUNT INCLUDES THE [facility] PRN Reason: Protocol Last Admin: 11/15/17 22:32 Dose: 12.5 mg Quetiapine Fumarate (Seroquel) 50 mg PO BID COUNT INCLUDES THE [facility] Last Admin: 11/16/17 10:24 Dose: 50 mg Thiamine HCl (Vitamin B1 Tab) 100 mg PO Q8H COUNT INCLUDES THE [facility] Last Admin: 11/16/17 13:33 Dose: 100 mg Physical Exam - Constitutional Appears: Non-toxic, No Acute Distress, Chronically Ill - Head Exam Head Exam: ATRAUMATIC, NORMOCEPHALIC - Eye Exam Eye Exam: EOMI, PERRL Pupil Exam: NORMAL ACCOMODATION, PERRL - ENT Exam ENT Exam: Mucous Membranes Moist, Normal External Ear Exam, TM's Normal Bilaterally - Neck Exam Neck exam: Positive for: Full Rom, Normal Inspection - Respiratory Exam Respiratory Exam: Clear to Auscultation Bilateral, NORMAL BREATHING PATTERN. absent: Rales, Rhonchi, Wheezes - Cardiovascular Exam Cardiovascular Exam: REGULAR RHYTHM, RRR, +S1, +S2 - GI/Abdominal Exam GI & Abdominal Exam: Normal Bowel Sounds, Soft. absent: Distended, Tenderness - Extremities Exam Extremities exam: Positive for: full ROM, normal inspection - Neurological Exam Neurological exam: Alert, CN II-XII Intact, Oriented x3 - Psychiatric Exam Psychiatric exam: Normal Affect, Normal Mood - Skin Skin Exam: Intact, Normal Color Results - Vital Signs Recent Vital Signs: Last Vital Signs Temp 98.2 F 11/16/17 14:44 Pulse 84 11/16/17 14:44 Resp 20 11/16/17 14:44 BP 106/52 L 11/16/17 14:44 Pulse Ox 98 11/16/17 14:44 - Labs Result Diagrams: 11/15/17 14:20 11/16/17 11:20 Labs: Laboratory Results - last 24 hr 11/15/17 11/15/17 11/16/17 21:50 23:02 07:14 Sodium Potassium Chloride Carbon Dioxide Anion Gap BUN Creatinine Est GFR ( Amer) Est GFR (Non-Af Amer) POC Glucose (mg/dL) 51 L 83 83 Random Glucose Hemoglobin A1c Calcium Iron TIBC % Saturation Total Bilirubin AST ALT Alkaline Phosphatase Total Protein Albumin Globulin Albumin/Globulin Ratio Triglycerides Cholesterol LDL Cholesterol Direct HDL Cholesterol 11/16/17 11/16/17 11/16/17 10:51 11:20 11:20 Sodium Potassium Chloride Carbon Dioxide Anion Gap BUN Creatinine Est GFR ( Amer) Est GFR (Non-Af Amer) POC Glucose (mg/dL) 99 Random Glucose Hemoglobin A1c Calcium Iron 90 TIBC 321 % Saturation 28 Total Bilirubin AST ALT Alkaline Phosphatase Total Protein Albumin Globulin Albumin/Globulin Ratio Triglycerides 122 Cholesterol 173 LDL Cholesterol Direct 64 HDL Cholesterol 89 H 11/16/17 11/16/17 11/16/17 11:20 11:20 16:11 Sodium 149 H Potassium 3.2 L Chloride 109 H Carbon Dioxide 26 Anion Gap 16 BUN 19 Creatinine 0.9 Est GFR ( Amer) > 60 Est GFR (Non-Af Amer) > 60 POC Glucose (mg/dL) 111 H Random Glucose 88 Hemoglobin A1c 5.1 Calcium 9.0 Iron TIBC % Saturation Total Bilirubin 0.4 AST 35 ALT 25 Alkaline Phosphatase 69 Total Protein 7.3 Albumin 4.0 Globulin 3.4 Albumin/Globulin Ratio 1.2 Triglycerides Cholesterol LDL Cholesterol Direct HDL Cholesterol Assessment & Plan - Assessment and Plan (Free Text) Assessment: 66 yo AA female with AMS brought in from home by her daughter. The patient is awake and alert. Urinalysis suggestive of UTI. Started on Cefepime for antibiotic coverage. Awaiting urine cultures to return. The patient at time of exam is making very few complaints which include mild upset of the stomach and increased urinary frequency. Thank you for allowing me to participate in the care of the patient, we will follow with you.
--- NOTE | 2017-11-16 20:47 | HP ---
The patient was seen and examined in emergency room at the bedside on 11/15/2017. CHIEF COMPLAINT: Psychiatric evaluation, but came through, the patient has low potassium and UTI. HISTORY OF PRESENT ILLNESS: Willow Cast, 66-year-old my private patient has past medical history of dementia, C. difficile toxin colitis, has psych issues, having visual hallucination and depression. The patient reports she is seeing the imaging that scares her. The patient reports that she has thoughts of hurting herself, but no plan. The patient noticed that she was referred to come to the emergency department for psych evaluation. Actually, the suggestion was from a couple of weeks, but the patient said she will go home and get ready and then will come to emergency room. According to the patient, she is noncompliant with her medications, especially Seroquel because she noticed it is not working. She is having right hip pain status post fall from weeks ago. No fever. No chills. No homicidal ideations. When we did workup in emergency room, the patient's potassium was low and looked like she has UTI, then Psych refused to take the patient with this medical issues. We admitted the patient to the medical floor, replaced the potassium. Started treatment of UTI and we will follow up on that. PAST MEDICAL HISTORY: Congestive heart failure, hypertension, right leg DVT, asthma, dementia, diabetes mellitus type 2, history of multiple falls, depression, coronary artery disease, cardiac stenting. FAMILY HISTORY: Father and mother, noncontributory. HABITS: Former smoker, not smoking now. No ethanol. No substance abuse. ALLERGIES: THE PATIENT IS NOT ALLERGIC WITH ANY MEDICATIONS. HOME MEDICATIONS: Seroquel. She is noncompliant with that. REVIEW OF SYSTEMS: The patient was seen and examined on the bedside in the ER in isolation room. Feeling comfortable. No nausea, vomiting, diarrhea. No fever. No chills. No shortness of breath. No dysuria. Actually, right hip pain. We will do x-ray of the right hip. Having visual hallucination. No homicidal ideation. No auditory hallucination. PHYSICAL EXAMINATION: VITAL SIGNS: Temperature 98.5, pulse 88, respiratory rate 18, blood pressure 114/78, pulse oximetry 99. HEENT: Head: Normocephalic, atraumatic. Eyes: PERRLA. Extraocular muscles intact. Conjunctivae clear. Nose patent. Mucous membrane moist. NECK: Supple. No carotid bruit. No JVD or thyromegaly. CHEST: Bilaterally symmetrical. HEART: S1 and S2 positive. LUNGS: Clear to auscultation. ABDOMEN: Soft. Bowel sounds positive. No organomegaly. EXTREMITIES: No edema. No cyanosis. NEUROLOGICAL: The patient is awake and alert. No swelling of the legs. LABORATORY DATA: White blood cells 4.9, hemoglobin 11.3, hematocrit 34, platelets 164. Sodium 143, potassium 2.8, BUN 25, creatinine 1.1, glucose 128. ASSESSMENT AND PLAN: Ms. Willow Cast, 66-year-old lady with anemia; hypokalemia, replaced; hyperglycemia; history of fall; depression; urinary tract infection, Keflex was started in the ER; history of dementia; history of Clostridium difficile toxin colitis multiple times; history of congestive heart failure; hypertension; right leg deep venous thrombosis long time ago; asthma; coronary stenting. Now, came with hallucinations. Admitted on medical floor. Has right hip pain because of fall. Hip, pelvis x-ray done shows degenerative changes in both hips. No evidence of fracture. We will give some physical therapy. Dr. Carla Wilkinson, psychiatrist is on the case. Infectious Disease consult called with Dr. Cheng for urinary tract infection. Started on home medication , Cymbalta, digoxin, Inderal, Lipitor, Plavix, thiamine. Repeat labs. We will follow up. Fariha Olvera MD MTDD
--- NOTE | 2017-11-16 21:06 | CON ---
DATE: 11/16/2017 HISTORY OF PRESENT ILLNESS: In short, the patient is a 66-year-old -[place] female with Alzheimer dementia, history of multiple medical admissions. The patient also has visual hallucinations and depression for what patient was sent by her primary care physician, Dr. Olvera, for psychiatric admission in the emergency room. The patient was found to have a low potassium level and urinary tract infection, required medical admission and this press writer was involved for evaluation of depressive symptoms as well as hallucination and possible psych admission. This press writer attempted to speak to the patient. The patient appears to be very sleepy. The patient was easily arousable, but there is no meaningful conversation possible. The patient was mumbling something, but the patient knows that she is in the hospital. When this press writer asked about hallucinations, the patient started to mumble something and fell asleep back again. VITAL SIGNS: Seem to be stable. Temperature 98.2, pulse is 71, blood pressure 130/70, respirations 18, oxygen saturation is 100. MEDICATIONS: Reviewed. The patient is on Lipitor, Plavix, digoxin, Aricept, Cymbalta 20 mg daily, Namenda 5 mg daily, Remeron 15 mg at the nighttime as needed for insomnia, K-Dur, Inderal, Seroquel 12.5 mg at the nighttime and 50 mg twice a day which was resumed by primary care team, and thiamine 100 mg daily. LABORATORY DATA: Reviewed. Most recent lab was potassium 2.8 and it was yesterday; BUN 25, which seems to be high. The patient's urinalysis showed leukocyte esterase positive, rule out urinary tract infection. Toxicology is negative for any substances. Moreover, the patient has EKG changes and required cardiology consultation because QTc prolonged at 493. The patient also had possible septal infarct, age unknown and STW changes. This press writer evaluated mental status, but no option to have meaningful conversation besides the patient said that she knows that she is in the hospital. As per history, the patient had visual hallucinations and at times visual hallucinations scares her. IMPRESSION: Rule out Alzheimer's dementia with psychosis, rule out delirium, rule out mood disorder with psychotic symptoms. PLAN: The patient's daughter is power of state attorney only for financial issues, but not for medical issues. We need to evaluate the patient's capacity to sign consent for treatment. If the patient is willing to have a treatment, we will transfer the patient to the psychiatric inpatient unit. Meanwhile, the patient needs to be cleared by medical team. Labs needed to be repeated. If the patient is medically stable and if patient has capacity to sign herself into the psychiatric inpatient unit, we will be more than happy to assist with that. Meanwhile, continue current management. Continue current medication. Dr. Siu will see the patient tomorrow. Thank you very much for letting me to participate in care of your patient. Carla Wilkinson MD
[2017-11-16] MEDS: Cefepime 1gm in NS 100ml 1 GM/100 ML BAG IVPB SCH (21:26)
--- NOTE | 2017-11-17 01:57 | PN ---
DATE: 11/16/2017 SUBJECTIVE: The patient is a 66-year-old female. The patient was seen and examined at the bedside on 11/16/2017, looking comfortable. No nausea, vomiting, diarrhea, sleepy, arousable. No hematuria or hematochezia. No swelling of the leg. No fever. No chills. PHYSICAL EXAMINATION: VITAL SIGNS: Temperature 98.1, pulse 66, blood pressure 142/77, respiratory rate 20. HEENT: Head: Normocephalic and atraumatic. Eyes: PERRLA. Extraocular muscles intact. Conjunctivae clear. Nose: Patent. Mucous membranes moist. NECK: Supple. No carotid bruit. No JVD or thyromegaly. CHEST: Bilaterally symmetrical. HEART: S1 and S2 positive. LUNGS: Clear to auscultation. ABDOMEN: Soft. Bowel sounds present. No organomegaly. EXTREMITIES: No edema. No cyanosis. NEUROLOGIC: The patient is awake and alert. Moving all four extremities. No focal deficits. MEDICATIONS: Aricept, Cymbalta, digoxin, Inderal, Sam-Dur, Lipitor, Maxipime, Namenda, Plavix, Remeron, Seroquel, vitamin B1. LABORATORY DATA: White blood cells 4.9, hemoglobin 13.2, hematocrit 34, platelets 154. Sodium 149, potassium 3.2, chloride 109, glucose 117. ASSESSMENT AND PLAN: Ms. Willow Cast is a 66-year-old lady with anemia, hypernatremia, hypokalemia, hyperchloremia,hyperglycemia, B12 borderline, proteinuria, hematuria, urinary tract infection, has little bit altered mental status as per daughter, some time having hallucination and delusions. The patient is getting Cefepime, waiting for the culture and sensitivity, history of coronary artery disease, hypertension, history of chronic diarrhea, but right now, she do not have diarrhea. Cognitive impairment, history of deep venous thrombosis, asthma, diabetes mellitus, history of cardiac catheterization with stenting, history of gastric bypass long time ago. No history of illicit drug abuse, no history of allergies. The patient is getting Lipitor. We will replace potassium. Repeat labs. We will follow up. Fariha Olvera MD
[2017-11-17 07:56] LABS: HEMOGLOBIN 10.6 g/dL (12.0-16.0); MEAN CELL VOLUME 94.4 fl (80.0-105.0); MEAN CORPUSCULAR HEMOGLOBIN 31.1 pg (25.0-35.0); MEAN CORPUSCULAR HGB CONC 32.9 g/dl (31.0-37.0); MEAN PLATELET VOLUME 8.9 fl (7.0-11.0); RBC 3.41 10^6/uL (3.5-6.1); RED CELL DISTRIBUTION WIDTH 14.2 % (11.5-14.5); WHITE BLOOD COUNT 3.5 10^3/ul (4.5-11.0)
[2017-11-17] MEDS: Potassium Chloride 20 mEq ER Tab PO SCH (08:01)
[2017-11-17 08:18] LABS: BLOOD UREA NITROGEN 19 mg/dL (7-21); CALCIUM 8.8 mg/dL (8.4-10.5); GFR NON-AFRICAN AMERICAN 55
[2017-11-17] MEDS: Digoxin 125 mcg (0.125 mg) Tab PO SCH (10:49)
[2017-11-17] MEDS: Cefepime 1gm in NS 100ml 1 GM/100 ML BAG IVPB SCH ×2 (10:51→21:46)
--- NOTE | 2017-11-17 15:27 | CP.PCM.PN ---
Subjective - Date & Time of Evaluation Date of Evaluation: 11/17/17 Time of Evaluation: 14:30 - Subjective Subjective: Infectious Disease Follow Up: November 17, 2017 66 yo female with PMHx of Alzheimer's and C. Diff infection history presenting with complaints of visual hallucinations and depression. Possible UTI based on urinalysis. She does complain of urinary frequency. Urine cultures negative at this time. Patient wants to go home. Patient's daughter stating that the patient has periods of altered mental status and hallucinations and delusions. Objective - Vital Signs/Intake and Output Vital Signs (last 24 hours): Temp Pulse Resp BP Pulse Ox 98.2 F 75 20 137/76 99 11/17/17 06:00 11/17/17 10:50 11/17/17 06:00 11/17/17 10:50 11/17/17 06:00 Intake and Output: 11/17/17 11/17/17 06:59 18:59 Intake Total 780 Balance 780 - Medications Medications: Current Medications Atorvastatin Calcium (Lipitor) 80 mg PO DAILY [facility] Last Admin: 11/17/17 10:50 Dose: 80 mg Clopidogrel Bisulfate (Plavix) 75 mg PO DAILY [facility] Last Admin: 11/17/17 10:50 Dose: 75 mg Digoxin (Digoxin) 0.125 mg PO QAM [facility] Last Admin: 11/17/17 10:49 Dose: 0.125 mg Donepezil HCl (Aricept) 10 mg PO HS [facility] Last Admin: 11/16/17 21:26 Dose: 10 mg Duloxetine HCl (Cymbalta) 20 mg PO DAILY [facility] Last Admin: 11/17/17 10:50 Dose: 20 mg Cefepime HCl (Maxipime 1gm) 1 gm in 100 mls @ 100 mls/hr IVPB Q12 JOANNE PRN Reason: Protocol Last Admin: 11/17/17 10:51 Dose: 100 mls/hr Memantine (Namenda) 5 mg PO DAILY [facility] Last Admin: 11/17/17 10:50 Dose: 5 mg Mirtazapine (Remeron) 15 mg PO HS PRN PRN Reason: Insomnia Last Admin: 11/16/17 21:29 Dose: 15 mg Potassium Chloride (K-Dur 20 Meq Er Tab) 40 meq PO BRK [facility] Last Admin: 11/17/17 08:01 Dose: 40 meq Propranolol HCl (Inderal) 40 mg PO DAILY [facility] Last Admin: 11/17/17 10:50 Dose: 40 mg Quetiapine Fumarate (Seroquel) 12.5 mg PO HS [facility] PRN Reason: Protocol Last Admin: 11/16/17 21:26 Dose: 12.5 mg Quetiapine Fumarate (Seroquel) 50 mg PO BID [facility] Last Admin: 11/17/17 10:49 Dose: 50 mg - Labs Labs: 11/17/17 07:30 11/17/17 07:30 - Constitutional Appears: Non-toxic, No Acute Distress, Chronically Ill - Head Exam Head Exam: ATRAUMATIC, NORMOCEPHALIC - Eye Exam Eye Exam: EOMI, PERRL Pupil Exam: NORMAL ACCOMODATION, PERRL - ENT Exam ENT Exam: Mucous Membranes Moist, Normal External Ear Exam, TM's Normal Bilaterally - Neck Exam Neck Exam: Full ROM, Normal Inspection - Respiratory Exam Respiratory Exam: Clear to Ausculation Bilateral, NORMAL BREATHING PATTERN. absent: Rales, Rhonchi, Wheezes - Cardiovascular Exam Cardiovascular Exam: REGULAR RHYTHM, RRR, +S1, +S2 - GI/Abdominal Exam GI & Abdominal Exam: Soft, Normal Bowel Sounds. absent: Distended, Tenderness - Extremities Exam Extremities Exam: Full ROM, Normal Inspection - Neurological Exam Neurological Exam: Alert, Awake, CN II-XII Intact, Oriented x3 - Psychiatric Exam Psychiatric exam: Normal Affect, Normal Mood - Skin Skin Exam: Intact, Normal Color Assessment and Plan - Assessment and Plan (Free Text) Assessment: 66 yo AA female with AMS brought in from home by her daughter. The patient is awake and alert. Urinalysis suggestive of UTI. Started on Cefepime for antibiotic coverage. Awaiting urine cultures to return. The patient at time of exam is making very few complaints which include mild upset of the stomach and increased urinary frequency. Urine cultures have been negative to date. Daughter stating AMS and periods of delusions and hallucinations at home. Thank you for allowing me to participate in the care of the patient, we will follow with you.
[2017-11-18 07:30] LABS: HEMOGLOBIN 11.8 g/dL (12.0-16.0); MEAN CORPUSCULAR HEMOGLOBIN 30.7 pg (25.0-35.0); MEAN CORPUSCULAR HGB CONC 32.7 g/dl (31.0-37.0); MEAN PLATELET VOLUME 9.6 fl (7.0-11.0); RBC 3.84 10^6/uL (3.5-6.1); RED CELL DISTRIBUTION WIDTH 14.3 % (11.5-14.5); WHITE BLOOD COUNT 3.8 10^3/ul (4.5-11.0)
[2017-11-18 07:52] LABS: BLOOD UREA NITROGEN 20 mg/dL (7-21); GFR NON-AFRICAN AMERICAN 55
[2017-11-18] MEDS: Digoxin 125 mcg (0.125 mg) Tab PO SCH (11:15)
[2017-11-18] MEDS: Potassium Chloride 20 mEq ER Tab PO SCH (11:17)
[2017-11-18] MEDS: Cefepime 1gm in NS 100ml 1 GM/100 ML BAG IVPB SCH ×2 (11:18→22:08)
--- NOTE | 2017-11-18 13:40 | PN ---
DATE: 11/17/2017 SUBJECTIVE: The patient is 66 years old female. The patient seen and examined on the bedside on 11/17/2017. Looking comfortable. No change in the status. No headache. No dizziness. No fever. No chills. No nausea, vomiting, or diarrhea. No hematuria. No hematochezia. PHYSICAL EXAMINATION: VITAL SIGNS: Temperature 98.2, pulse 75, respiratory rate 20, blood pressure 137/76, pulse oximetry of 99. HEENT: Head normocephalic, atraumatic. Eyes PERRLA. Extraocular muscles are intact. Conjunctivae clear. Nose patent. Mucous membrane moist. NECK: Supple. No carotid bruit. No JVD or thyromegaly. CHEST: Bilaterally symmetrical. HEART: S1 and S2 positive. LUNGS: Clear to auscultation. ABDOMEN: Soft. Bowel sounds present. No organomegaly. EXTREMITIES: No edema. No cyanosis. NEUROLOGICAL: The patient is awake and alert. Moving all 4 extremities. No focal deficits. MEDICATIONS: Lipitor, Plavix, digoxin, Aricept, Cymbalta, Maxipime, Namenda, potassium, Inderal, Seroquel. LABORATORY DATA: White blood cells 3.5, hemoglobin 10.6, hematocrit 32.2, platelets 130. Sodium 147, potassium 3.7, BUN 19, creatinine 1, glucose 90. ASSESSMENT AND PLAN: Ms. Willow Cast is a 66-year-old lady with leukopenia, anemia, hyperchloremia, urinary tract infection, came with altered mental status, hallucinating. The patient is alert and awake, but getting episodes of confusion, getting antibiotics for urinary tract infection, started on cefepime for antibiotic coverage, still waiting for urine cultures. Urine cultures have been negative up to now. The patient is getting periods of delusion and hallucinations at home. Has history of multiple other medical problems, electrolyte imbalance, history of coronary artery disease, hypertension, history of chronic diarrhea, congestive heart failure, diabetes mellitus, history of cardiac catheterization, cardiac stenting with gastric bypass long time ago. Meanwhile, continue present treatment. Psych is on the case. Infectious Disease is on the case. We will follow up. Fariha Olvera MD
--- NOTE | 2017-11-18 16:31 | CP.PCM.PN ---
Subjective - Date & Time of Evaluation Date of Evaluation: 11/18/17 Time of Evaluation: 14:30 - Subjective Subjective: Infectious Disease Follow Up: November 18, 2017 66 yo female with PMHx of Alzheimer's and C. Diff infection history presenting with complaints of visual hallucinations and depression. Possible UTI based on urinalysis. She does complain of urinary frequency. Urine cultures negative at this time. Patient wants to go home. Patient's daughter stating that the patient has periods of altered mental status and hallucinations and delusions. She is particularly upset at her daughter. Objective - Vital Signs/Intake and Output Vital Signs (last 24 hours): Temp Pulse Resp BP Pulse Ox 97.9 F 68 18 137/70 98 11/18/17 14:00 11/18/17 14:00 11/18/17 14:00 11/18/17 14:00 11/18/17 14:00 Intake and Output: 11/18/17 11/18/17 06:59 18:59 Intake Total 780 480 Balance 780 480 - Medications Medications: Current Medications Atorvastatin Calcium (Lipitor) 80 mg PO DAILY [facility] Last Admin: 11/18/17 11:17 Dose: 80 mg Clopidogrel Bisulfate (Plavix) 75 mg PO DAILY [facility] Last Admin: 11/18/17 11:19 Dose: 75 mg Digoxin (Digoxin) 0.125 mg PO QAM [facility] Last Admin: 11/18/17 11:15 Dose: 0.125 mg Donepezil HCl (Aricept) 10 mg PO HS [facility] Last Admin: 11/17/17 21:46 Dose: 10 mg Duloxetine HCl (Cymbalta) 20 mg PO DAILY [facility] Last Admin: 11/18/17 11:14 Dose: 20 mg Cefepime HCl (Maxipime 1gm) 1 gm in 100 mls @ 100 mls/hr IVPB Q12 JOANNE PRN Reason: Protocol Last Admin: 11/18/17 11:18 Dose: 100 mls/hr Memantine (Namenda) 5 mg PO DAILY [facility] Last Admin: 11/18/17 11:19 Dose: 5 mg Mirtazapine (Remeron) 15 mg PO HS PRN PRN Reason: Insomnia Last Admin: 11/17/17 21:46 Dose: 15 mg Potassium Chloride (K-Dur 20 Meq Er Tab) 40 meq PO BRK [facility] Last Admin: 11/18/17 11:17 Dose: 40 meq Propranolol HCl (Inderal) 40 mg PO DAILY [facility] Last Admin: 11/18/17 11:16 Dose: 40 mg Quetiapine Fumarate (Seroquel) 12.5 mg PO HS [facility] PRN Reason: Protocol Last Admin: 11/17/17 21:46 Dose: 12.5 mg Quetiapine Fumarate (Seroquel) 50 mg PO BID [facility] Last Admin: 11/18/17 11:20 Dose: 50 mg - Labs Labs: 11/18/17 07:00 11/18/17 07:00 - Constitutional Appears: Non-toxic, No Acute Distress, Chronically Ill - Head Exam Head Exam: ATRAUMATIC, NORMOCEPHALIC - Eye Exam Eye Exam: EOMI, PERRL Pupil Exam: NORMAL ACCOMODATION, PERRL - ENT Exam ENT Exam: Mucous Membranes Moist, Normal External Ear Exam, TM's Normal Bilaterally - Neck Exam Neck Exam: Full ROM, Normal Inspection - Respiratory Exam Respiratory Exam: Clear to Ausculation Bilateral, NORMAL BREATHING PATTERN. absent: Rales, Rhonchi, Wheezes - Cardiovascular Exam Cardiovascular Exam: REGULAR RHYTHM, RRR, +S1, +S2 - GI/Abdominal Exam GI & Abdominal Exam: Soft, Normal Bowel Sounds. absent: Distended, Tenderness - Extremities Exam Extremities Exam: Full ROM, Normal Inspection - Neurological Exam Neurological Exam: Alert, Awake, CN II-XII Intact, Oriented x3 - Psychiatric Exam Psychiatric exam: Normal Affect, Normal Mood - Skin Skin Exam: Intact, Normal Color Assessment and Plan - Assessment and Plan (Free Text) Assessment: 66 yo AA female with AMS brought in from home by her daughter. The patient is awake and alert. Urinalysis suggestive of UTI. Started on Cefepime for antibiotic coverage. Awaiting urine cultures to return. The patient at time of exam is making very few complaints which include mild upset of the stomach and increased urinary frequency. Urine cultures have been negative to date. Daughter stating AMS and periods of delusions and hallucinations at home. Considering up to 5 days of antibiotic coverage at this time. Urine cultures are negative. Thank you for allowing me to participate in the care of the patient, we will follow with you.
--- NOTE | 2017-11-18 21:48 | CON ---
DATE: 11/18/2017 HISTORY OF PRESENT ILLNESS: The patient is a 66-year-old -[place] female with Alzheimer dementia who has visual hallucinations and depression, initially sent to the ER for psychiatric treatment by her primary care physician, Dr. Olvera, and then medically transferred due to low potassium. Psychiatry has been following her on the medical floor where the patient has shown remarkable improvement in orientation and communication. I visited with the patient yesterday as well as today and the patient continues to demonstrate consistent improvement in orientation. She is aware that it is 11/2017 and she is in the hospital. She has been calm and pleasant. Appetite is returning. She is sleeping fairly well. There has been no behavioral issues on the unit and the patient reports that hallucinations continue to be remitted. She is pleasant and clearly does have memory issues as well as problem with sustained focus and comprehension of current circumstances; however, she is more predictable with improving judgement. The patient does not appear to be responding to internal stimuli and delusions were not elicited. Vital signs and labs were reviewed by this provider. RELEVANT PSYCHIATRIC MEDICATIONS: Include Cymbalta 20 mg daily, Remeron 15 mg at nighttime, Seroquel 12.5 mg at nighttime and 50 mg twice a day as well as Aricept. IMPRESSION: Dementia with perceptual disturbances as well as rule out mood disorder with psychotic symptoms as well as . RECOMMENDATIONS: The patient does not have capacity to sign in the voluntary psychiatric admission. Regardless, the patient's main psychiatric symptoms have improved and that she is no longer hallucinating and her memory and cognition are improving. I spoke to family again on the patient's diagnosis of dementia. Behavior has been suicidal and homicidal. She is not paranoid and delusions were not elicited. The patient does not meet criteria for involuntary psychiatric admission. Psychiatry consulted at this time. Please reconsult as necessary if there will be acute changes in patient's symptoms. Woody Siu MD
[2017-11-19 04:35] VITALS: O2SAT 100
[2017-11-19] MEDS: Potassium Chloride 20 mEq ER Tab PO SCH (09:21)
[2017-11-19] MEDS: Digoxin 125 mcg (0.125 mg) Tab PO SCH (09:22)
[2017-11-19] MEDS: Cefepime 1gm in NS 100ml 1 GM/100 ML BAG IVPB SCH ×2 (09:22→22:20)
--- NOTE | 2017-11-19 18:35 | CP.PCM.PN ---
Subjective - Date & Time of Evaluation Date of Evaluation: 11/19/17 Time of Evaluation: 16:15 - Subjective Subjective: Infectious Disease Follow Up: November 19, 2017 66 yo female with PMHx of Alzheimer's and C. Diff infection history presenting with complaints of visual hallucinations and depression. Possible UTI based on urinalysis. She does complain of urinary frequency. Urine cultures negative at this time. Patient wants to go home. Patient's daughter stating that the patient has periods of altered mental status and hallucinations and delusions. She is particularly upset at her daughter. She is unhappy that she is remaining in the hospital at this time. Objective - Vital Signs/Intake and Output Vital Signs (last 24 hours): Temp Pulse Resp BP Pulse Ox 98.1 F 51 L 18 158/79 H 100 11/19/17 14:00 11/19/17 14:00 11/19/17 14:00 11/19/17 14:00 11/19/17 14:00 Intake and Output: 11/19/17 11/19/17 06:59 18:59 Intake Total 500 360 Output Total 6 Balance 494 360 - Medications Medications: Current Medications Acetaminophen (Tylenol 325mg Tab) 650 mg PO Q6H PRN PRN Reason: Pain, moderate (4-7) Atorvastatin Calcium (Lipitor) 80 mg PO DAILY [facility] Last Admin: 11/19/17 09:22 Dose: 80 mg Clopidogrel Bisulfate (Plavix) 75 mg PO DAILY [facility] Last Admin: 11/19/17 09:21 Dose: 75 mg Digoxin (Digoxin) 0.125 mg PO QAM [facility] Last Admin: 11/19/17 09:22 Dose: 0.125 mg Donepezil HCl (Aricept) 10 mg PO HS [facility] Last Admin: 11/18/17 22:09 Dose: 10 mg Duloxetine HCl (Cymbalta) 20 mg PO DAILY [facility] Last Admin: 11/19/17 09:22 Dose: 20 mg Cefepime HCl (Maxipime 1gm) 1 gm in 100 mls @ 100 mls/hr IVPB Q12 JOANNE PRN Reason: Protocol Last Admin: 11/19/17 09:22 Dose: 100 mls/hr Memantine (Namenda) 5 mg PO DAILY [facility] Last Admin: 11/19/17 09:22 Dose: 5 mg Mirtazapine (Remeron) 15 mg PO HS PRN PRN Reason: Insomnia Last Admin: 11/18/17 22:09 Dose: 15 mg Potassium Chloride (K-Dur 20 Meq Er Tab) 40 meq PO BRK [facility] Last Admin: 11/19/17 09:21 Dose: 40 meq Propranolol HCl (Inderal) 40 mg PO DAILY [facility] Last Admin: 11/19/17 09:21 Dose: 40 mg Quetiapine Fumarate (Seroquel) 12.5 mg PO HS [facility] PRN Reason: Protocol Last Admin: 11/18/17 22:10 Dose: 12.5 mg Quetiapine Fumarate (Seroquel) 50 mg PO BID [facility] Last Admin: 11/19/17 17:49 Dose: 50 mg - Labs Labs: 11/18/17 07:00 11/18/17 07:00 - Constitutional Appears: Non-toxic, No Acute Distress, Chronically Ill - Head Exam Head Exam: ATRAUMATIC, NORMOCEPHALIC - Eye Exam Eye Exam: EOMI, PERRL Pupil Exam: NORMAL ACCOMODATION, PERRL - ENT Exam ENT Exam: Mucous Membranes Moist, Normal External Ear Exam, TM's Normal Bilaterally - Neck Exam Neck Exam: Full ROM, Normal Inspection - Respiratory Exam Respiratory Exam: Clear to Ausculation Bilateral, NORMAL BREATHING PATTERN. absent: Rales, Rhonchi, Wheezes - Cardiovascular Exam Cardiovascular Exam: REGULAR RHYTHM, RRR, +S1, +S2 - GI/Abdominal Exam GI & Abdominal Exam: Soft, Normal Bowel Sounds. absent: Distended, Tenderness - Extremities Exam Extremities Exam: Full ROM, Normal Inspection - Neurological Exam Neurological Exam: Alert, Awake, CN II-XII Intact, Oriented x3 - Psychiatric Exam Psychiatric exam: Normal Affect, Normal Mood - Skin Skin Exam: Intact, Normal Color Assessment and Plan - Assessment and Plan (Free Text) Assessment: 66 yo AA female with AMS brought in from home by her daughter. The patient is awake and alert. Urinalysis suggestive of UTI. Started on Cefepime for antibiotic coverage. Awaiting urine cultures to return. The patient at time of exam is making very few complaints which include mild upset of the stomach and increased urinary frequency. Urine cultures have been negative to date. Daughter stating AMS and periods of delusions and hallucinations at home. Considering up to 5 days of antibiotic coverage at this time. Urine cultures are negative. She appears to be AAO x 3 when spoken to and examined. Thank you for allowing me to participate in the care of the patient, we will follow with you.
--- NOTE | 2017-11-20 02:52 | PN ---
DATE: 11/19/2017 SUBJECTIVE: Patient is a 67-year-old female. The patient was seen and examined on the bedside, looking comfortable. No nausea, vomiting, or diarrhea. No hematuria. No hematochezia. No swelling of the legs. No chest pain. No palpitations. No headache or dizziness. PHYSICAL EXAMINATION: VITAL SIGNS: Temperature 98.1, pulse 51, blood pressure 158/76, respiratory rate 18. HEENT: Head normocephalic, atraumatic. Eyes PERRLA. Extraocular muscles are intact. Conjunctivae clear. Nose patent. Mucous membrane moist. NECK: Supple. No carotid bruit. No JVD or thyromegaly. CHEST: Bilaterally symmetrical. HEART: S1 and S2 positive. LUNGS: Clear to auscultation. ABDOMEN: Soft. Bowel sounds present. No organomegaly. EXTREMITIES: No edema. No cyanosis. NEUROLOGICAL: The patient is sleepy, arousable, following simple commands. MEDICATIONS: Aricept, Cymbalta, digoxin, Inderal, potassium, Lipitor, Namenda, Plavix, Remeron, Seroquel, Tylenol. LABORATORY DATA: White blood cells 3.8, hemoglobin 11.8, hematocrit 36.1, platelets 136. Glucose 106. ASSESSMENT AND PLAN: Ms. Willow Cast is a 67-year-old female with leukopenia; anemia; uncontrolled diabetes mellitus; history of hypokalemia, replaced; proteinuria; hematuria; urinary tract infection. Drug screening was negative. Actually, came in emergency room for visual hallucinations. Plan was to do Psych admission, but phoned to know that patient has hypokalemia and urinary tract infection; so, we admitted on the medical floor, replaced the potassium. Patient has history of dementia; Clostridium difficile toxin infection. Urine culture is negative at this time. Patient's daughter stated that patient has sometime periods of altered mental status and hallucinations and delusions. Plan is, after completing antibiotics, we have transferred this patient to the psych floor. Patient is getting cefepime; consider up to 5 days of antibiotic coverage at this time. Gastrointestinal and deep vein thrombosis prophylaxis. Reviewed Dr. Cheng's notes. Reviewed Dr. Woody Siu's notes also, covering Dr. Carla Wilkinson. Actually, the patient had dementia with perceptual disturbances as well as rule out mood disorder with psychotic symptoms. We will talk to Dr. Carla Wilkinson on Monday and we will make plan for this patient. Fariha Olvera MD
--- NOTE | 2017-11-20 08:19 | CON ---
DATE: 11/17/2017 HISTORY OF PRESENT ILLNESS: The patient is a 66-year-old -[place] female with Alzheimer dementia, history of multiple medical admissions, who has been seen by Psychiatry on the medical floor due to visual hallucination and depression for which she was sent for by her primary physician, Dr. Olvera, for psychiatric admission. The patient was supposed to be psychiatrically admitted, but was found to have a low potassium level and UTI, and required medical admission to replete potassium levels, urinary tract infection was ruled out. Dr. Wilkinson admitted patient yesterday on 11/16/2017 and patient appeared to be quite sedated though arousable. Meaningful conversation was not possible, patient was mumbling, and appeared to be disorganized and was only oriented to the fact that she was in the hospital. I met with patient at bedside this morning and she appears to be improved considerably in comparison to reports of her mental status yesterday. She is quite pleasant and she is aware of being in a hospital, and what month and year it is. She indicates that her appetite is pretty good having no issues with it, especially if it is something she likes to eat. Patient indicates that she does remember having hallucinations; however, she does not have them any longer. She is feeling "okay." She is not hopeless but she does report that she still regrets for things that she did not do in her life. She is not homicidal either. Her affect is reactive and appropriate during our questioning and her responses are relevant to questioning as well as consistent with repeat questioning. Patient has been in control on the medical floor, and generally cooperative with staff members regarding required medical treatment. There has been no nursing notes indicating any hallucinations, agitations or suicidal thoughts on the unit in the past 24 hours, and patient does demonstrate much improvement during this time. I cannot rule out that patient is still suffering from delirium and improvement will be sustained. Regardless suffer from dementia, confusion and forgetfulness, and has poor insight into the necessity of her hospitalization such that she does not have to be signed in for voluntary psychiatric care. Patient does have POA but it is not a health POA. Lab data and vital signs reviewed. MEDICATIONS: Reviewed and patient is taking Aricept 10 mg at bedtime, Namenda 5 mg daily, Remeron 15 mg at bedtime, Seroquel 12.5 mg at the nighttime and 50 b.i.d. IMPRESSION: Rule out delirium, rule out mood disorder with psychotic symptoms, rule out Alzheimer's dementia with psychosis. PLAN: The patient is demonstrating improvement in symptoms at this time. She denies hallucination. She is more oriented. She is calmer, and she denies any suicidal thoughts. Psychiatrically, she might benefit from a psychiatric admission if she is suffering from depression for further evaluation to rule out the recurrence of hallucinations; however, the patient does not have a capacity to sign in. Patient's daughter is the power of corporate attorney only for financial issues, not for medical issues. Although patient might benefit from a voluntary admission, she does not have a capacity to sign in. It is worth noting that though she might benefit from a voluntary admission, she does not meet criteria for any involuntary admission, and in this respect, psychiatrically at this time, patient will not go voluntarily to the unit or involuntarily to a psychiatric unit. Psychiatry will follow patient to see if there are any changes in her mentation and they will follow up her every other day; however, I do not have any new recommendation for her psychiatric medications. She is improving and there are no acute indications for changes in management in this regard, if she is medically cleared, she is psychiatrically cleared, and there is no reason to hold her for psychiatric reason. This provided will follow up with patient on 11/19/2017, if she continues to be hospitalized on the medical floor. Woody Siu MD
--- NOTE | 2017-11-20 09:20 | PN ---
DATE: 11/18/2017 SUBJECTIVE: The patient is a 67-year-old female. The patient was seen and examined on the bedside on 11/18/2017. Looking comfortable. No nausea, vomiting, diarrhea. No hematuria or hematochezia. No swelling of the legs. No chest pain or palpitation. No headache. No dizziness. The patient is a very poor historian, but sometimes getting episodes of anxiety. PHYSICAL EXAMINATION VITAL SIGNS: Temperature 97.9, pulse 68, respiratory rate 18, blood pressure 137/70, pulse oximetry of 98. HEENT: Head normocephalic, atraumatic. Eyes PERRLA. Extraocular muscles intact. Conjunctivae clear. Nose patent. Mucous membrane moist. NECK: Supple. No carotid bruit. No JVD or thyromegaly. CHEST: Bilaterally symmetrical. HEART: S1 and S2 positive. LUNGS: Clear to auscultation. ABDOMEN: Soft. Bowel sounds positive. No organomegaly. EXTREMITIES: No edema. No cyanosis. NEUROLOGICAL: The patient is awake and alert. Moving all 4 extremities. No focal deficits. LABORATORY DATA: White blood cells 3.8, hemoglobin 11.8, hematocrit 36.1, platelets 132. Sodium 146, potassium 3.8, BUN 20, creatinine 1, glucose 107. MEDICATIONS: Lipitor, Plavix, Digoxin, Aricept, Cymbalta, Namenda, Remeron, K-Dur, Inderal, Seroquel. ASSESSMENT AND PLAN: Ms. Willow Cast, 67-year-old lady with leukopenia, anemia, hyperchloremia. Has multiple medical problems, was brought to the hospital with altered mental status by her daughter. Now, urinalysis shows urinary tract infection. Started on cefepime for antibiotic coverage. Awaiting for the culture and sensitivity. History of gastric bypass long time ago. Urine cultures are negative up to now. According daughter, the patient has periods of delusions and hallucinations at home. Plan is to give 5 days antibiotics. Psychiatry is on the case. Gastrointestinal and deep venous thrombosis prophylaxis. Repeat labs. We will follow up. Fariha Olvera MD [facility] # [id number] MTDD
[2017-11-20] MEDS: Digoxin 125 mcg (0.125 mg) Tab PO SCH (09:32)
[2017-11-20] MEDS: Potassium Chloride 20 mEq ER Tab PO SCH (09:32)
--- NOTE | 2017-11-20 18:10 | CP.PCM.PN ---
Subjective - Date & Time of Evaluation Date of Evaluation: 11/20/17 Time of Evaluation: 14:15 - Subjective Subjective: Infectious Disease Follow Up: November 20, 2017 66 yo female with PMHx of Alzheimer's and C. Diff infection history presenting with complaints of visual hallucinations and depression. Possible UTI based on urinalysis. She does complain of urinary frequency. Urine cultures negative at this time. Patient wants to go home. Patient's daughter stating that the patient has periods of altered mental status and hallucinations and delusions. She is particularly upset at her daughter. She is unhappy that she is remaining in the hospital at this time. Antibiotics completed. Objective - Vital Signs/Intake and Output Vital Signs (last 24 hours): Temp Pulse Resp BP Pulse Ox 97.6 F 60 18 158/73 H 100 11/20/17 14:30 11/20/17 14:30 11/20/17 14:30 11/20/17 14:30 11/20/17 14:30 Intake and Output: 11/20/17 11/20/17 06:59 18:59 Intake Total 180 1020 Balance 180 1020 - Medications Medications: Current Medications Acetaminophen (Tylenol 325mg Tab) 650 mg PO Q6H PRN PRN Reason: Pain, moderate (4-7) Atorvastatin Calcium (Lipitor) 80 mg PO DAILY [facility] Last Admin: 11/20/17 09:32 Dose: 80 mg Clopidogrel Bisulfate (Plavix) 75 mg PO DAILY [facility] Last Admin: 11/20/17 09:32 Dose: 75 mg Digoxin (Digoxin) 0.125 mg PO QAM [facility] Last Admin: 11/20/17 09:32 Dose: 0.125 mg Donepezil HCl (Aricept) 10 mg PO HS [facility] Last Admin: 11/19/17 22:25 Dose: 10 mg Duloxetine HCl (Cymbalta) 20 mg PO DAILY [facility] Last Admin: 11/20/17 09:32 Dose: 20 mg Memantine (Namenda) 5 mg PO DAILY [facility] Last Admin: 11/20/17 09:32 Dose: 5 mg Mirtazapine (Remeron) 15 mg PO HS PRN PRN Reason: Insomnia Last Admin: 11/20/17 00:02 Dose: 15 mg Potassium Chloride (K-Dur 20 Meq Er Tab) 40 meq PO BRK [facility] Last Admin: 11/20/17 09:32 Dose: 40 meq Propranolol HCl (Inderal) 40 mg PO DAILY [facility] Last Admin: 11/20/17 09:31 Dose: 40 mg Quetiapine Fumarate (Seroquel) 12.5 mg PO HS [facility] PRN Reason: Protocol Last Admin: 11/19/17 22:24 Dose: 12.5 mg Quetiapine Fumarate (Seroquel) 50 mg PO BID [facility] Last Admin: 11/20/17 09:31 Dose: 50 mg - Labs Labs: 11/18/17 07:00 11/18/17 07:00 - Constitutional Appears: Non-toxic, No Acute Distress, Chronically Ill - Head Exam Head Exam: ATRAUMATIC, NORMOCEPHALIC - Eye Exam Eye Exam: EOMI, PERRL Pupil Exam: NORMAL ACCOMODATION, PERRL - ENT Exam ENT Exam: Mucous Membranes Moist, Normal External Ear Exam, TM's Normal Bilaterally - Neck Exam Neck Exam: Full ROM, Normal Inspection - Respiratory Exam Respiratory Exam: Clear to Ausculation Bilateral, NORMAL BREATHING PATTERN. absent: Rales, Rhonchi, Wheezes - Cardiovascular Exam Cardiovascular Exam: REGULAR RHYTHM, RRR, +S1, +S2 - GI/Abdominal Exam GI & Abdominal Exam: Soft, Normal Bowel Sounds. absent: Distended, Tenderness - Extremities Exam Extremities Exam: Full ROM, Normal Inspection - Neurological Exam Neurological Exam: Alert, Awake, CN II-XII Intact, Oriented x3 - Psychiatric Exam Psychiatric exam: Normal Affect, Normal Mood - Skin Skin Exam: Intact, Normal Color Assessment and Plan - Assessment and Plan (Free Text) Assessment: 66 yo AA female with AMS brought in from home by her daughter. The patient is awake and alert. Urinalysis suggestive of UTI. Started on Cefepime for antibiotic coverage. Awaiting urine cultures to return. The patient at time of exam is making very few complaints which include mild upset of the stomach and increased urinary frequency. Urine cultures have been negative to date. Daughter stating AMS and periods of delusions and hallucinations at home. Completing 5 days of antibiotic coverage at this time. Urine cultures are negative. She appears to be AAO x 3 when spoken to and examined. Thank you for allowing me to participate in the care of the patient, we will follow with you.
[2017-11-21] MEDS: Potassium Chloride 20 mEq ER Tab PO SCH (08:13)
[2017-11-21] MEDS: Digoxin 125 mcg (0.125 mg) Tab PO SCH (10:08)
--- NOTE | 2017-11-21 19:02 | CP.PCM.PN ---
Subjective - Date & Time of Evaluation Date of Evaluation: 11/21/17 Time of Evaluation: 16:15 - Subjective Subjective: Infectious Disease Follow Up: November 21, 2017 66 yo female with PMHx of Alzheimer's and C. Diff infection history presenting with complaints of visual hallucinations and depression. Possible UTI based on urinalysis. She does complain of urinary frequency. Urine cultures negative at this time. Patient wants to go home. Patient's daughter stating that the patient has periods of altered mental status and hallucinations and delusions. She is particularly upset at her daughter. She is unhappy that she is remaining in the hospital at this time. Antibiotics completed. Patient not eligible for TRISTAN. Objective - Vital Signs/Intake and Output Vital Signs (last 24 hours): Temp Pulse Resp BP Pulse Ox 97.6 F 65 18 116/65 100 11/21/17 14:00 11/21/17 14:00 11/21/17 14:00 11/21/17 14:00 11/21/17 14:00 Intake and Output: 11/21/17 11/21/17 06:59 18:59 Intake Total 780 Balance 780 - Medications Medications: Current Medications Acetaminophen (Tylenol 325mg Tab) 650 mg PO Q6H PRN PRN Reason: Pain, moderate (4-7) Atorvastatin Calcium (Lipitor) 80 mg PO DAILY [facility] Last Admin: 11/21/17 10:08 Dose: 80 mg Clopidogrel Bisulfate (Plavix) 75 mg PO DAILY [facility] Last Admin: 11/21/17 10:03 Dose: 75 mg Digoxin (Digoxin) 0.125 mg PO QAM [facility] Last Admin: 11/21/17 10:08 Dose: 0.125 mg Donepezil HCl (Aricept) 10 mg PO HS [facility] Last Admin: 11/20/17 21:33 Dose: 10 mg Duloxetine HCl (Cymbalta) 20 mg PO DAILY [facility] Last Admin: 11/21/17 10:08 Dose: 20 mg Memantine (Namenda) 5 mg PO DAILY [facility] Last Admin: 11/21/17 10:08 Dose: 5 mg Mirtazapine (Remeron) 15 mg PO HS PRN PRN Reason: Insomnia Last Admin: 11/20/17 21:33 Dose: 15 mg Potassium Chloride (K-Dur 20 Meq Er Tab) 40 meq PO BRK [facility] Last Admin: 11/21/17 08:13 Dose: 40 meq Propranolol HCl (Inderal) 40 mg PO DAILY [facility] Last Admin: 11/21/17 10:03 Dose: 40 mg Quetiapine Fumarate (Seroquel) 12.5 mg PO HS [facility] PRN Reason: Protocol Last Admin: 11/20/17 21:33 Dose: 12.5 mg Quetiapine Fumarate (Seroquel) 50 mg PO BID [facility] Last Admin: 11/21/17 10:08 Dose: 50 mg - Labs Labs: 11/18/17 07:00 11/18/17 07:00 - Constitutional Appears: Non-toxic, No Acute Distress, Chronically Ill - Head Exam Head Exam: ATRAUMATIC, NORMOCEPHALIC - Eye Exam Eye Exam: EOMI, PERRL Pupil Exam: NORMAL ACCOMODATION, PERRL - ENT Exam ENT Exam: Mucous Membranes Moist, Normal External Ear Exam, TM's Normal Bilaterally - Neck Exam Neck Exam: Full ROM, Normal Inspection - Respiratory Exam Respiratory Exam: Clear to Ausculation Bilateral, NORMAL BREATHING PATTERN. absent: Rales, Rhonchi - Cardiovascular Exam Cardiovascular Exam: REGULAR RHYTHM, RRR, +S1, +S2 - GI/Abdominal Exam GI & Abdominal Exam: Soft, Normal Bowel Sounds. absent: Distended, Tenderness - Extremities Exam Extremities Exam: Full ROM, Normal Inspection - Neurological Exam Neurological Exam: Alert, Awake, CN II-XII Intact, Oriented x3 - Psychiatric Exam Psychiatric exam: Normal Affect, Normal Mood - Skin Skin Exam: Intact, Normal Color Assessment and Plan - Assessment and Plan (Free Text) Assessment: 66 yo AA female with AMS brought in from home by her daughter. The patient is awake and alert. Urinalysis suggestive of UTI. Started on Cefepime for antibiotic coverage. Awaiting urine cultures to return. The patient at time of exam is making very few complaints which include mild upset of the stomach and increased urinary frequency. Urine cultures have been negative to date. Daughter stating AMS and periods of delusions and hallucinations at home. Completed 5 days of antibiotic coverage at this time. Urine cultures are negative. She appears to be AAO x 3 when spoken to and examined. Thank you for allowing me to participate in the care of the patient, we will follow with you.
--- NOTE | 2017-11-21 19:36 | PN ---
DATE: 11/20/2017 SUBJECTIVE: Patient is 67-year-old female. Patient was seen and examined at the bedside, looking comfortable. Patient was seen and examined on 11/20/2017. Looking comfortable. No urinary symptoms. No nausea, vomiting, or diarrhea. No hematuria or hematochezia. No swelling of the legs. No chest pain. No palpitation. No headache. No dizziness. PHYSICAL EXAMINATION: VITAL SIGNS: Temperature 97.6, pulse 60, respiratory rate 18, blood pressure 150/76, pulse oximetry 100%. HEENT: Head: Normocephalic, atraumatic. Eyes: PERRLA. Extraocular movements are intact. Conjunctivae are clear. Nose: Patent. Mucous membranes are moist. NECK: Supple. No carotid bruit. No JVD or thyromegaly. CHEST: Bilaterally symmetrical. HEART: S1 and S2 positive. LUNGS: Clear to auscultation. ABDOMEN: Soft. Bowel sounds are present. No organomegaly. EXTREMITIES: No edema. No cyanosis. NEUROLOGIC: Patient is awake and alert, moving all 4 extremities with no focal deficit. MEDICATIONS: Tylenol, Lipitor, Plavix, digoxin, Aricept, Cymbalta, Namenda, Remeron, potassium chloride, Inderal, Seroquel. LABORATORY DATA: We do not have recent lab today, but I reviewed old labs. ASSESSMENT: Ms. Willow Cast is a 67-year-old lady with history of multiple medical problems, was admitted for urinary tract infection, hypokalemia, potassium is replaced, broad antibiotics, history of leukopenia and anemia, history of gastric bypass long time ago, history of psych problems, came with delusions and hallucinations. PLAN: Plan was to admit the patient to the Psych, but because of UTI and hypokalemia, we have to admit to the medical floor. Now, patient is medically cleared to go to the Psych floor with Dr. Carla Wilkinson who is the psychiatrist on the patient. We will follow up. Fariha Olvera MD
[2017-11-22] MEDS: Potassium Chloride 20 mEq ER Tab PO SCH (08:08)
[2017-11-22 08:21] VITALS: BP 120/62; PULSE 80; RESP 20; TEMP 98
--- NOTE | 2017-11-22 08:26 | PN ---
DATE: 11/21/2017 SUBJECTIVE: Patient is 67-year-old female. The patient was seen and examined at the bedside on 11/21/2017 and looking comfortable. No nausea, vomiting, or diarrhea. No hematuria or hematochezia. No swelling of the legs. No chest pain. No palpitation. No headache. No dizziness. PHYSICAL EXAMINATION: VITAL SIGNS: Temperature 97.6, pulse 65, respiratory rate 18, blood pressure 116/65, pulse oximetry 100%. HEENT: Head: Normocephalic, atraumatic. Eyes: PERRLA. Extraocular movements are intact. Conjunctivae are clear. Nose: Patent. Mucous membranes are moist. NECK: Supple. No carotid bruit. No JVD or thyromegaly. CHEST: Bilaterally symmetrical. HEART: S1 and S2 positive. LUNGS: Clear to auscultation. ABDOMEN: Soft. Bowel sounds are present. No organomegaly. EXTREMITIES: No edema. No cyanosis. NEUROLOGIC: Patient is awake and alert, moving all 4 extremities with no focal deficits. MEDICATIONS: Tylenol, Lipitor, Plavix, digoxin, Aricept, Cymbalta, Namenda, Remeron, K-Dur, Inderal, Seroquel. LABORATORY DATA: White blood cells 3.8, hemoglobin 11.8, hematocrit 36.1, platelets 139. Sodium 146, potassium 3.8, BUN 20, creatinine 1, glucose noted ASSESSMENT: Ms. Willow Cast is a 67-year-old lady with leukopenia, anemia, hyperchloremia, came with altered mental status. The patient is awake and alert. Urinalysis suggests urinary tract infection, started on cefepime for antibiotic coverage. The patient at this time of examination making very few complaints including mild upset of the stomach, increase in frequency. Urine culture has been negative, up to date. Daughter states periods of delusions and hallucinations at home, especially at night, but when I did examine the patient today, she is oriented x3. Completed 5-days of antibiotic coverage. We sent urine culture, which was negative. Psychiatric consult called, waiting for the psychiatrist. Repeat labs. We will follow. Fariha Olvera MD [facility]
[2017-11-22] MEDS: Digoxin 125 mcg (0.125 mg) Tab PO SCH (10:09)
[2017-11-22 10:12] VITALS: PULSE 80
--- NOTE | 2017-11-22 19:34 | CP.PCM.PN ---
Subjective - Date & Time of Evaluation Date of Evaluation: 11/22/17 Time of Evaluation: 13:30 - Subjective Subjective: Infectious Disease Follow Up: November 22, 2017 66 yo female with PMHx of Alzheimer's and C. Diff infection history presenting with complaints of visual hallucinations and depression. Possible UTI based on urinalysis. She does complain of urinary frequency. Urine cultures negative at this time. Patient wants to go home. Patient's daughter stating that the patient has periods of altered mental status and hallucinations and delusions. She is particularly upset at her daughter. She is unhappy that she is remaining in the hospital at this time. Antibiotics completed. Patient not eligible for TRISTAN. Possible psych admission? Objective - Vital Signs/Intake and Output Vital Signs (last 24 hours): Temp Pulse Resp BP Pulse Ox 98 F 80 20 120/62 100 11/22/17 08:20 11/22/17 10:08 11/22/17 08:20 11/22/17 10:08 11/22/17 08:20 - Labs Labs: 11/18/17 07:00 11/18/17 07:00 - Constitutional Appears: Non-toxic, No Acute Distress, Chronically Ill - Head Exam Head Exam: ATRAUMATIC, NORMOCEPHALIC - Eye Exam Eye Exam: EOMI, PERRL Pupil Exam: NORMAL ACCOMODATION, PERRL - ENT Exam ENT Exam: Mucous Membranes Moist, Normal External Ear Exam, TM's Normal Bilaterally - Neck Exam Neck Exam: Full ROM, Normal Inspection - Respiratory Exam Respiratory Exam: Clear to Ausculation Bilateral, NORMAL BREATHING PATTERN. absent: Rales, Rhonchi, Wheezes - Cardiovascular Exam Cardiovascular Exam: REGULAR RHYTHM, RRR, +S1, +S2 - GI/Abdominal Exam GI & Abdominal Exam: Soft, Normal Bowel Sounds. absent: Distended, Tenderness - Extremities Exam Extremities Exam: Full ROM, Normal Inspection - Neurological Exam Neurological Exam: Alert, Awake, CN II-XII Intact, Oriented x3 - Psychiatric Exam Psychiatric exam: Normal Affect, Normal Mood - Skin Skin Exam: Intact, Normal Color Assessment and Plan - Assessment and Plan (Free Text) Assessment: 66 yo AA female with AMS brought in from home by her daughter. The patient is awake and alert. Urinalysis suggestive of UTI. Started on Cefepime for antibiotic coverage. Awaiting urine cultures to return. The patient at time of exam is making very few complaints which include mild upset of the stomach and increased urinary frequency. Urine cultures have been negative to date. Daughter stating AMS and periods of delusions and hallucinations at home. Completed 5 days of antibiotic coverage at this time. Urine cultures are negative. She appears to be AAO x 3 when spoken to and examined. Daughter insistent that the patient has nocturnal hallucinations. The patient is being reevaluated for psych admission. Thank you for allowing me to participate in the care of the patient, we will follow with you.
--- NOTE | 2017-11-22 21:18 | PN ---
DATE: 11/22/2017 SUBJECTIVE: In short, the patient is 66-year-old -[place] female. The patient was admitted on the medical site for evaluation of altered mental status and visual hallucinations and paranoid ideation. The patient was found to have urinary tract infection and had a course of antibiotics. The patient initially said that she has power of benefits technician, her daughter, but at the same time power of benefits technician only for finances but not for medical decisions. It was confirmed by social services assistant. Psychiatry team signed off because the patient seemed to be confused, also was in delirium stage. Medical team reconsulted with this pattern chart writer today for possible psychiatric admission. The patient presented to be well. The patient knows that she is in the hospital and circumstances of her admission. The patient reported that she does not have any hallucinations, but before coming to the hospital, the patient admits that she had visual hallucinations and she was seeing people who were not there. The patient reported that her family history is significant for mother being diagnosed with Alzheimer dementia and as per the patient "I was traumatized by that" and at present moment when the patient forgets get about certain things, which seems to be age related until prove otherwise. The patient is scared and "I'm freaking out." Patient reported that this situation makes her feel very depressed and hopeless. The patient reported that she is willing to sign herself into the Psychiatric Inpatient Unit because she acknowledged that her feelings are out of proportion. The patient reported that she does not have hallucinations for past week pt was seeing people who were not there. Pt reported at times she has insomnia. The patient denied thoughts of harming herself or others. Denied intent or plan, but appears to have periods of confusion. The patient reported previous history of psychiatric admission for depressive symptoms and it was years back. The patient reported that she never tried to kill herself and denied any thoughts of killing herself at present moment. The patient became tearful and said that she does not want to be demented and she wants to get better and she wants to address her depressive symptoms. This pattern chart writer evaluated vital signs. Vital signs seem to be stable. Temperature 98, pulse is 80, blood pressure 120/62, respirations 20, and oxygen saturation is 100. MEDICATIONS: Reviewed. Tylenol, Lipitor, Plavix, digoxin, Aricept, Cymbalta, Namenda, Remeron 15, Inderal, K-Dur, Seroquel 12.5 mg at the nighttime and 50 mg twice a day which will be increased to 50 mg at the morning time and 100 at the nighttime. Labs reviewed. Most recent was from 11/18/2017, seems to be stable. MENTAL STATUS EXAMINATION: The patient appears to be depressed, tearful, intermittent eye contact. Speech at times incoherent, but majority of the time, the patient was able to express herself very well. Mood described "I don't want to have dementia, I'm freaking out." Affect was tearful. Thought process at times circumstantial, sometimes the patient was losing chain of her thoughts. Insight and judgment seem to be improving. Impulses are well controlled. The patient seems to have capacity to sign herself into the Psychiatric Inpatient Unit. IMPRESSION Rule out mood disorder, rule out Alzheimer dementia with behavioral disturbances, rule out delirium due to urinary tract infection, rule out normal aging. PLAN: The patient is willing to sign herself into the Psychiatric Inpatient Unit, signed consent. The patient has capacity to do so. The patient is willing to participate in treatment plan and treatment plan was discussed in details. Seroquel will be increased. Remeron will be left as it is. Cymbalta will be discontinued. Prozac 10 mg a day for depression and anxiety or possible Celexa because if the patient has dementia, Celexa will be better choice for her. Meanwhile, the patient signed consent for treatment. The patient will be seen by medical team on the Psychiatric Inpatient Unit. The patient requires further hospitalization and stabilization. Should you have any questions, give me a call back. Thank you very much for letting me to participate in the care of your patient. Carla Wilkinson MD [facility]
--- NOTE | 2017-12-27 16:03 | DS ---
The patient was discharged on 11/22/2017 to Psychiatric Department. The patient was seen and examined at bedside on 12/26/2017. CHIEF COMPLAINT: Psychiatric evaluation. The patient has low potassium and replaced. HISTORY OF PRESENT ILLNESS: Ms. Willow Cast is a 66-year-old my private patient with many medical problems, C. difficile toxin colitis, congestive heart failure, coronary artery disease, history of gastric bypass, depression, celiac disease, living with the daughter, has active hallucinations, came in to [facility] Emergency Room for admission. In the ER, we came to know the patient has UTI and low potassium, readmitted on the medical floor. Potassium was replaced. Antibiotic was given. Patient was seen by Dr. Cheng, Infectious Disease, and Psych was on the case also. After recovering from UTI and replacing of potassium, we transferred the patient to Psych floor on 11/22/2017. PAST MEDICAL HISTORY: Congestive heart failure, hypertension, right leg DVT, asthma, dementia, diabetes mellitus type 2, depression, coronary artery disease, cardiac stenting. FAMILY HISTORY: Father and mother, noncontributory. HABITS: Former smoker. Not smoking now. No drugs. No ethanol. ALLERGIES: PATIENT IS NOT ALLERGIC WITH ANY MEDICATIONS. HOME MEDICATIONS: Reviewed by me. REVIEW OF SYSTEMS: Patient seen and examined at bedside, looking comfortable. No nausea, vomiting or diarrhea. No hematuria or hematochezia. No swelling of the legs. No chest pain or palpitation. No headache or dizziness. Feels better. PHYSICAL EXAMINATION: VITAL SIGNS: Temperature 98, pulse 80, respiratory rate 20, blood pressure 120/62, pulse oximetry 100. HEENT: Head normocephalic, atraumatic. Eyes, PERRLA. Extraocular muscles intact. Conjunctivae clear. Nose patent. Mucous membrane moist. NECK: Supple. No carotid bruit. No JVD or thyromegaly. CHEST: Bilaterally symmetrical. HEART: S1, S2 positive. LUNGS: Clear to auscultation. ABDOMEN: Soft. Bowel sounds present. No organomegaly. EXTREMITIES: No edema. No cyanosis. NEUROLOGIC: Patient is awake and alert, moving all 4 extremities. No focal deficits. LABORATORY DATA: White blood cells 3.8, hemoglobin 11.8, hematocrit 36.1, platelets 139. Sodium 146, potassium 3.9, BUN 20, creatinine 1, glucose 107. ASSESSMENT AND PLAN: Ms. Willow Cast is a 66-year old lady with multiple medicle probles . had cad , chf , gastric by pass , bipoler . dementia , leukopenia , had h/o hallucenations . is on the psyche , floor , cont, same treatment , will f/u Fariha Olvera MD MTDD
== END 2017-11-22 16:13 | DRG 690 ==
LOC: ED 12:47 → ERH 16:10 → 5RSO 20:07
PROVIDERS: ADMIT Internal Medicine; ATTEND Internal Medicine
DX: N39.0 Urinary tract infection, site not specified (principal); F33.2 Major depressive disorder, recurrent severe without psychotic features; E87.0 Hyperosmolality and hypernatremia; E87.6 Hypokalemia; E11.65 Type 2 diabetes mellitus with hyperglycemia; G30.9 Alzheimer's disease, unspecified; F02.80 Dementia in other diseases classified elsewhere, unspecified severity, without behavioral disturbance, psychotic disturbance, mood disturbance, and anxiety; J45.909 Unspecified asthma, uncomplicated; I11.0 Hypertensive heart disease with heart failure; I50.9 Heart failure, unspecified; D64.9 Anemia, unspecified; I25.10 Atherosclerotic heart disease of native coronary artery without angina pectoris; E87.8 Other disorders of electrolyte and fluid balance, not elsewhere classified; E78.00 Pure hypercholesterolemia, unspecified; K21.9 Gastro-esophageal reflux disease without esophagitis; Z87.891 Personal history of nicotine dependence; Z86.718 Personal history of other venous thrombosis and embolism; Z95.5 Presence of coronary angioplasty implant and graft; Z91.14 Patient's other noncompliance with medication regimen; Z86.19 Personal history of other infectious and parasitic diseases; Z98.84 Bariatric surgery status

== ENCOUNTER 2017-11-22 16:18 | Inpatient (IN) | payer MEDICARE, OTHER ==
[2017-11-22 10:12] VITALS: PULSE 80
[2017-11-22 19:18] VITALS: PULSE 80; RESP 18
--- NOTE | 2017-11-22 19:37 | PCM.BM ---
Treatment Plan Problems - Problems identified on initial assessmt VISUAL HALLUCINATION Date Initiated: 11/22/17 Time Initiated: 19:00 Assessment reference: NA Status: Active ALTERED THOUGHT PROCESS Date Initiated: 11/22/17 Time Initiated: 19:00 Assessment reference: NA Status: Active INEFFECTIVE COPING Date Initiated: 11/22/17 Time Initiated: 19:00 Assessment reference: NA Status: Active SOCIAL ISOLATION Date Initiated: 11/22/17 Time Initiated: 19:00 Assessment reference: NA Status: Active Treatment assets and liabiliti Patient Assests: educated, ADL independent, good support system, negotiates basic needs Patient Liabilities: imparied memory, visual impairment - Milieu Protocol Maintain good personal hygiene: every shift Encourage regular showers, every shift Remind patient to perform daily oral care, every shift Assist patient to perform ADL's Conduct patient checks and document Observation sheet: Q15 minutes Maintain personal safety: every shift Educate patient to report safety concerns to staff, every shift Monitor environment for contraband/sharps Medication safety: Monitor for expected outcome, potential side effects: every shift, Assess barriers to learning: every shift, Assess readiness for medication education: every shift Family Contact Family involvement: Family/SO is involved Discharge/Continuing Care - Education Needs Education Needs: Family Medication, Family Diagnosis/Disease Process, Family Coping Skills, Family Activities of Daily Living, Family Personal Hygiene/ Grooming, Patient Medication, Patient Diagnosis/Disease Process - Discharge Discharge Criteria: Tolerates medication w/o severe side effects, Free of paranoid thoughts, Free of agitation, Normal sleep pattern
[2017-11-23] MEDS ORDERED: Potassium Chloride 20 mEq ER Tab PO SCH (08:00)
[2017-11-23] MEDS ORDERED: Digoxin 125 mcg (0.125 mg) Tab PO SCH (14:00)
--- NOTE | 2017-11-23 14:26 | PCM.PSYCH ---
Initial Psychiatric Evaluation - Initial Psychiatric Evaluation Type of Admission: Voluntary Legal Status: Capacity (pt had capacity to sign consent for tx) Chief Complaint (in patient's own words): "I am freaking out when I cannot remember things" Patient's Reaction to Hospitalization: pt was transferred from the medical side for evaluation of depression, psychosis , inability to function, r/o pseudodementia History of Present Illness and Precipitating Events: pt was not seen at the time of admission, pt was transferred from the medical floor where this securities underwriter recommended psych admission. pt was transferred from the medical side for depression, hallucinations, inability to function please see CL note for more detailed info within couple of hours pt started to scream, was calling her daughter that she made a mistake, wants to be d/c as soon as possible RN contacted this securities underwriter, this securities underwriter advised to call the daughter and ask her to pick pt up. daughter was contacted, she came over to pick pt up, pt was d/c AMA Current Medications: see CL note for more detailed information Past Psychiatric History - Past Psychiatric History Previous Treatment History: Inpatient Prior Professional Help: see CL note Prior Psychiatric Treatment: see CL note At what hospital: see CL note Duration: see CL note Nature of Treatment: see CL note Explanation of prior treatment: see CL note History of Abuse: see CL note History of ETOH/Drug Use: see CL note History of Family Illness: see CL note Pertinent Medical Hx (Current Medical&Sleep Prob, Allergies): Allergies Allergy/AdvReac Type Severity Reaction Status Date / Time No Known Allergies Allergy Verified 11/23/17 03:17 Atorvastatin [Lipitor] 80 mg PO DAILY #30 tab 08/02/17 Clopidogrel [Plavix] 75 mg PO DAILY #14 tab 08/02/17 DULoxetine [Cymbalta] 20 mg PO DAILY #30 ecc 08/02/17 Digoxin 0.125 mg PO QAM #30 tab 08/02/17 Memantine [Namenda] 5 mg PO DAILY #30 tab 08/02/17 Mirtazapine [Remeron] 15 mg PO HS PRN #14 tab 08/02/17 Potassium Chloride 40 meq PO DAILY 30 Days tablet.er 08/02/17 Propranolol HCl 40 mg PO DAILY #30 tablet 08/02/17 QUEtiapine [Seroquel] 12.5 mg PO HS #30 tab 08/02/17 Thiamine [Vitamin B1 Tab] 100 mg PO Q8H #30 tab 08/02/17 Donepezil [Aricept] 10 mg PO HS #30 tab 08/31/17 Quetiapine Fumarate [Seroquel] 50 mg PO BID #30 tablet 09/27/17 Review of Systems - Review of Systems Systems not reviewed;Unavailable: Acuity of Condition - EENT Eyes: As Per HPI Ears: As Per HPI Nose/Mouth/Throat: As Per HPI - Breasts Breasts: As Per HPI - Cardiovascular Cardiovascular: As Per HPI - Respiratory Respiratory: As Per HPI - Gastrointestinal Gastrointestinal: As Per HPI - Genitourinary Genitourinary: As Per HPI - Reproductive: Female Reproductive:Female: As Per HPI - Menstruation Menstruation: As Per HPI - Musculoskeletal Musculoskeletal: As Par HPI - Integumentary Integumentary: As Per HPI - Neurological Neurological: As Per HPI - Psychiatric Psychiatric: As Per HPI - Endocrine Endocrine: As Per HPI - Hematologic/Lymphatic Hematologic: As Per HPI Mental Status Examination - Personal Presentation Personal Presentation: Looks stated age - Affect Affect: Flat - Motor Activity Motor Activity: Calm - Reliability in Providing Information Reliability in Providing Information: Poor, due to alteration in thoughts, Poor , due to altered mood - Speech Speech: Tangential - Formal Thought Process Formal Thought Process: Circumstantial - Obsessions/Compulsions Obsessions: None Compulsions: None - Cognitive Functions Orientation: Person Abstract Thinking: [place] Estimate of Intelligence: Average Judgement: Intact, as evidence by: Insight regarding need for hospitalization - Risk Risk: Diminished functioning - Strength & Assets Inventory Strength & Assets Inventory: Family support, Skills, Cooperative - Limitations Limitations: Other (memory problems) DSM 5 DX - DSM 5 DSM 5 Diagnosis: r/o pseudodementia r/o dementia with behavioral disturbances and psychosis delirium is better - Recommended/Plan of Treatment Treatment Recommendations and Plan of Treatment: meds from the medical side resumed Atorvastatin [Lipitor] 80 mg PO DAILY #30 tab 08/02/17 Clopidogrel [Plavix] 75 mg PO DAILY #14 tab 08/02/17 DULoxetine [Cymbalta] was d/c celexa 5mg po daily started Digoxin 0.125 mg PO QAM #30 tab 08/02/17 Memantine [Namenda] 5 mg PO DAILY #30 tab 08/02/17 Mirtazapine [Remeron] 15 mg PO HS PRN #14 tab 08/02/17 Potassium Chloride 40 meq PO DAILY 30 Days tablet.er 08/02/17 Propranolol HCl 40 mg PO DAILY #30 tablet 08/02/17 QUEtiapine [Seroquel] 12.5 mg PO HS #30 tab 08/02/17 Thiamine [Vitamin B1 Tab] 100 mg PO Q8H #30 tab 08/02/17 Donepezil [Aricept] 10 mg PO HS #30 tab 08/31/17 Quetiapine Fumarate [Seroquel] 50 mg PO BID #30 tablet 09/27/17 Projected ELOS: 7days Prognosis: guarded Discharge Plan and Discharge Criteria: Pt will be not depressed or manic, will be more hopeful, will be not psychotic or anxious, will be not having thoughts of harming self or others, will be tolerating medications well, will not have major side effects, will be able to function, will not pose threat to self or others. - Smoking Cessation Smoking Cessation Initiated: No Reason for not providing: denies smoking
--- NOTE | 2017-11-23 14:30 | PCM.PYCHDC ---
Mental Status Examination - Mental Status Examination Orientation: Person, Place Memory: Impaired Mood: Depressed Affect: Constricted Attention: Poor Concentration: Poor Association: WNL Fund of Knowledge: WNL Formal Thought Process: Circumstantial Description of patient's judgement and insight: insight is limited Psychotic Thoughts and Behaviors: at times pt is forgetful no hallucinations or paranoia Suicidal Ideation: No Current Homicidal Ideation?: No Plan: denied Discharge Summary - Discharge Note Reason for Hospitalization: pt was transferred from the medical side for evaluation of depression, psychosis , inability to function, r/o pseudodementia Psychiatric History (includes Medical, Family, Personal Hx): see CL note Laboratory Data: Vital Signs Pulse Resp 11/22/17 18:42 80 18 labs see on the medical side Consultations:: List each consultation separately and include: 1. Reason for request. 2. Findings. 3. Follow-up Summary of Hospital Course include:: 1. Description of specific treatment plan utilized for patients during their course of treatmen. 2. Summarize the time- course for resolution of acute symptoms and/or regressed behaviors. 3. Describe issues identified and worked on during hospitalization. 4. Describe medication utilized. 5. Describe medical problems identified and treated. 6. Reassessment of suicide risk Summary of Hospital Course: pt was not seen at the time of admission, pt was transferred from the medical floor where this group underwriter recommended psych admission. pt was transferred from the medical side for depression, hallucinations, inability to function please see CL note for more detailed info within couple of hours pt started to scream, was calling her daughter that she made a mistake, wants to be d/c as soon as possible RN contacted this group underwriter, this group underwriter advised to call the daughter and ask her to pick pt up. daughter was contacted, she came over to pick pt up, pt was d/c AMA - Diagnosis (1) Pseudodementia Status: Acute (2) Dementia with behavioral disturbance Status: Acute - Final Diagnosis (DSM 5) Condition upon Discharge: GOOD Disposition: AGAINST MEDICAL ADVICE Follow-up Treatment Plan: meds from the medical side resumed pt was d/c ama Atorvastatin [Lipitor] 80 mg PO DAILY #30 tab 08/02/17 Clopidogrel [Plavix] 75 mg PO DAILY #14 tab 08/02/17 DULoxetine [Cymbalta] was d/c celexa 5mg po daily started Digoxin 0.125 mg PO QAM #30 tab 08/02/17 Memantine [Namenda] 5 mg PO DAILY #30 tab 08/02/17 Mirtazapine [Remeron] 15 mg PO HS PRN #14 tab 08/02/17 Potassium Chloride 40 meq PO DAILY 30 Days tablet.er 08/02/17 Propranolol HCl 40 mg PO DAILY #30 tablet 08/02/17 QUEtiapine [Seroquel] 12.5 mg PO HS #30 tab 08/02/17 Thiamine [Vitamin B1 Tab] 100 mg PO Q8H #30 tab 08/02/17 Donepezil [Aricept] 10 mg PO HS #30 tab 08/31/17 Quetiapine Fumarate [Seroquel] 50 mg PO BID #30 tablet 09/27/17 - Smoking Cessation Smoking Cessation Medication prescribed: No Reason for not providing: denied smoking - Antipsychotic Medications Pt discharged on 2 or more routine antipsychotic medications: No
== END 2017-11-22 22:18 | disposition left against medical advice (07) | DRG 884 ==
LOC: PSYC 16:18
PROVIDERS: ADMIT Psychiatry & Neurology Psychiatry; ATTEND Psychiatry & Neurology Psychiatry
DX: F03.90 Unspecified dementia, unspecified severity, without behavioral disturbance, psychotic disturbance, mood disturbance, and anxiety (principal)

== ENCOUNTER 2017-11-22 22:22 | Inpatient (IN) | payer MEDICARE, OTHER ==
[2017-11-22 22:23] VITALS: BMI 22.8
--- NOTE | 2017-11-22 23:04 | ED PDOC ---
Arrival/HPI - General Time Seen by Provider: 11/22/17 22:27 Historian: Patient - History of Present Illness Narrative History of Present Illness (Text): 11/22/17 23:03 Willow Cast is a 67 year old female, whose past medical history includes CHF , hypertension, DVT, asthma, dementia, diabetes, depression, CAD with coronary stent placement, who presents to the Emergency department complaining of depression. Patient was initially admitted to the hospital on 11/15/2017 hypokalemia, UTI, dementia, and depression. Patient was transferred to [facility] earlier today for depression after her daughter, who is her POA, signed her in for voluntary admission, however patient then signed out against medical advice this evening. Patient states this was due to some confusion on her part regarding her admission to the psychiatric floor but now wants to be readmitted to [facility] for depression. Patient denies any fever, chills, chest pain, shortness of breath, nausea, vomiting, diarrhea, urinary symptoms, back pain, neck pain, headache, dizziness, or any other complaints. Symptom Onset: Gradual Symptom Course: Unchanged Activities at Onset: Light Context: Home Past Medical History - Provider Review Nursing Documentation Reviewed: Yes - Past History Past History: No Previous - Infectious Disease Hx of Infectious Diseases: None - Tetanus Immunization Tetanus Immunization: Unknown - Reproductive Menopause: Yes - Past Medical History Past Medical History: No Previous - Cardiac Hx Cardiac Disorders: Yes Hx Congestive Heart Failure: Yes Hx Hypertension: Yes Hx Peripheral Edema: Yes (rle +1) Other/Comment: R Leg DVT - Pulmonary Hx Respiratory Disorders: Yes Hx Asthma: Yes - Neurological Hx Neurological Disorder: Yes (memory loss) Hx Alzheimer's Disease: Yes Hx Dementia: Yes - HEENT Hx HEENT Disorder: Yes Other/Comment: glasses - Renal Hx Renal Disorder: No - Endocrine/Metabolic Hx Diabetes Mellitus Type 2: Yes - Hematological/Oncological Hx Blood Disorders: No Hx AIDS: No Hx Anemia: No Hx Cancer: No Hx Chemotherapy: No Hx Cirrhosis: No Hx Hepatitis A: No Hx Hepatitis B: No Hx Hepatitis C: No Hx Metastasis: No Hx Shingles: No Hx Unexplained Bleeding: No - Integumentary Hx Dermatological Disorder: No - Musculoskeletal/Rheumatological Hx Musculoskeletal Disorders: Yes Hx Arthritis: Yes Hx Falls: Yes (1 month and 1 week ago) Hx Unsteady Gait: Yes - Gastrointestinal Hx Gastrointestinal Disorders: Yes (c dif 2/15/18) Hx Gastroesophageal Reflux: Yes - Genitourinary/Gynecological Hx Genitourinary Disorders: Yes Hx Hematuria: Yes ("sometimes") - Psychiatric Hx Anxiety: Yes Hx Substance Use: No - Past Surgical History Past Surgical History: No Previous - Surgical History Hx Cardiac Catheterization: Yes Hx Coronary Stent: Yes Hx Gastric Bypass Surgery: Yes (2002 with weight loss as per pt) Other/Comment: had sx for hammertoes both feet as per pt but hammertoes noted both feet toes 2 3 4 at present time, sx to remove benign tumor bottom of foot - Anesthesia Hx Anesthesia: Yes Hx Anesthesia Reactions: No Hx Malignant Hyperthermia: No - Suicidal Assessment Feels Threatened In Home Enviroment: No Family/Social History - Physician Review Nursing Documentation Reviewed: Yes Family/Social History: Unknown Family HX Smoking Status: Former Smoker Hx Alcohol Use: No Hx Substance Use: No Hx Substance Use Treatment: No Allergies/Home Meds Allergies/Adverse Reactions: Allergies No Known Allergies Allergy (Verified 04/12/17 15:36) Review of Systems - Physician Review All systems were reviewed & negative as marked: Yes - Review of Systems Constitutional: Normal. absent: Fevers Eyes: Normal ENT: Normal Respiratory: Normal. absent: SOB, Cough Cardiovascular: Normal. absent: Chest Pain Gastrointestinal: Normal. absent: Abdominal Pain, Diarrhea, Nausea, Vomiting Genitourinary Female: Normal. absent: Dysuria, Frequency, Hematuria, Urine Output Changes Musculoskeletal: Normal. absent: Back Pain, Neck Pain Skin: Normal. absent: Rash Neurological: Normal. absent: Headache, Dizziness Endocrine: Normal Hemo/Lymphatic: Normal Psychiatric: Depression Physical Exam Vital Signs Reviewed: Yes Vital Signs Temp Pulse Resp BP Pulse Ox 11/22/17 22:56 98.7 F 84 17 160/96 H 96 Temperature: Afebrile Blood Pressure: Normal Pulse: Regular Respiratory Rate: Normal Appearance: Positive for: Well-Appearing, Non-Toxic, Comfortable Pain Distress: None Mental Status: Positive for: Alert and Oriented X 3 - Systems Exam Head: Present: Atraumatic, Normocephalic Pupils: Present: PERRL Extroacular Muscles: Present: EOMI Conjunctiva: Present: Normal Mouth: Present: Moist Mucous Membranes Neck: Present: Normal Range of Motion Respiratory/Chest: Present: Clear to Auscultation, Good Air Exchange. No: Respiratory Distress, Accessory Muscle Use Cardiovascular: Present: Regular Rate and Rhythm, Normal S1, S2. No: Murmurs Abdomen: No: Tenderness, Distention, Peritoneal Signs Back: Present: Normal Inspection Upper Extremity: Present: Normal Inspection. No: Cyanosis, Edema Lower Extremity: Present: Normal Inspection. No: Edema Neurological: Present: GCS=15, CN II-XII Intact, Speech Normal Skin: Present: Warm, Dry, Normal Color. No: Rashes Psychiatric: Present: Alert, Oriented x 3, Normal Insight, Normal Concentration Medical Decision Making ED Course and Treatment: 11/22/17 23:03 Impression: 67 year old female requesting readmission to [facility] for depression. Differential Diagnosis included but are not limited to: depression Plan: -- Reassess and disposition Prior Visits: Notes and results from previous visits were reviewed. Progress Notes: 11/23/17 00:28 Spoke with PES janet Colindres, pt can be readmitted to [facility] for depression under Dr. Siu's service. Pt and daughter agreeable with plan. - Scribe Statement The provider has reviewed the documentation as recorded by the Cindy Diaz Provider Scribe Attestation: All medical record entries made by the Scribe were at my direction and personally dictated by me. I have reviewed the chart and agree that the record accurately reflects my personal performance of the history, physical exam, medical decision making, and the department course for this patient. I have also personally directed, reviewed, and agree with the discharge instructions and disposition. Disposition/Present on Arrival - Present on Arrival Any Indicators Present on Arrival: No History of DVT/PE: No History of Uncontrolled Diabetes: No Urinary Catheter: No History of Decub. Ulcer: No History Surgical Site Infection Following: None - Disposition Have Diagnosis and Disposition been Completed?: Yes Diagnosis: Major depressive disorder, recurrent severe without psychotic features Disposition: HOSPITALIZED Disposition Time: 00:36 Patient Plan: Admission Condition: STABLE Referrals: Fariha Olvera MD [Primary Care Provider] - Follow up with primary
[2017-11-23 01:30] VITALS: O2SAT 98
--- NOTE | 2017-11-23 02:32 | PCM.BM ---
<Santo Stevens - Last Filed: 11/23/17 02:29> Treatment Plan Problems - Problems identified on initial assessmt INEFFECTIVE COPING Date Initiated: 11/23/17 Time Initiated: 02:00 Assessment reference: NA Status: Active Priority: 1 ALTERED MEMORY AND ORIENTATION Date Initiated: 11/23/17 Time Initiated: 02:00 Assessment reference: NA Status: Active Priority: 2 ANXIETY BEHAVIOR Date Initiated: 11/23/17 Time Initiated: 02:00 Assessment reference: NA Status: Active Priority: 3 Treatment assets and liabiliti Patient Assests: adapts well, educated, ADL independent, good support system, negotiates basic needs Patient Liabilities: financial problems, medical problems, imparied memory - Milieu Protocol Maintain good personal hygiene: daily Encourage regular showers, every shift Remind patient to perform daily oral care, every shift Assist patient to perform ADL's Maintain personal safety: every shift Educate patient to report safety concerns to staff, every shift Monitor environment for contraband/sharps Medication safety: Monitor for expected outcome, potential side effects: every shift, Assess barriers to learning: every shift, Assess readiness for medication education: every shift Family Contact Family involvement: Family/SO is involved Family contact: Patient agrees to contact Discharge/Continuing Care - Education Needs Education Needs: Patient Medication, Patient Diagnosis/Disease Process, Patient Coping Skills, Patient Anger Management skills, Patient Health Practices/Safety , Patient Aftercare Safety Plan - Discharge Discharge Criteria: Free of paranoid thoughts, Free of agitation, Ability to care for self <Carla Wilkinson - Last Filed: 11/23/17 14:30> - Diagnosis (1) Dementia Status: Acute Interventions: 11/23/17 14:31 Pt will be seen by medical team as needed neurology as needed Medications will be confirmed and resumed Additional consultation by specialists as needed Lab work as needed (CBC, CMP, TSH, free T4, UA, Urine test for females as needed) CXR as needed EKG Physical therapy evaluation as needed (2) MDD (major depressive disorder) Status: Acute Interventions: 11/23/17 14:32 Psychoeducation Psychopharmacology/adjustment of medications as needed/ monitoring possible side effects Evaluate pt on daily basis Compliance with medications and follow up appointments Suicide and homicide risk assessment and prevention Relapse prevention Reduction of symptoms Improve functional status Family involvement As outpatient: cognitive behavioral therapy <Leola Landry Y - Last Filed: 11/24/17 14:42> Family Contact Family contact: Patient agrees to contact Family contact name: Elena Morgan(daughter) Family contacted how many times per week?: 2
[2017-11-23] MEDS ORDERED: Magnesium Hydroxide Susp 30 ml UD PO PRN (03:10)
[2017-11-23] MEDS ORDERED: Alum-Mag Hydrox-Simethicone Susp (30 mL) PO PRN (03:10)
[2017-11-23] MEDS ORDERED: QUETIAPINE FUMARATE 50 MG PO SCH (08:00)
[2017-11-23] MEDS: Potassium Chloride 20 mEq ER Tab PO SCH (09:01)
[2017-11-23] MEDS: Digoxin 125 mcg (0.125 mg) Tab PO SCH (14:03)
--- NOTE | 2017-11-23 15:23 | PCM.PSYCH ---
Initial Psychiatric Evaluation - Initial Psychiatric Evaluation Type of Admission: Voluntary Legal Status: Capacity (patient has capacity to sign consent for treatment) Chief Complaint (in patient's own words): "I love the hospital because I thought nurses were laughing at me, it was confusion from my part" Patient's Reaction to Hospitalization: patient was admitted to the psychiatric inpatient unit for evaluation of depressive symptoms, psychosis, inability to function History of Present Illness and Precipitating Events: shortly, Willow Cast is a 67 year old female, with medical history includes CHF, hypertension, DVT, asthma, dementia, diabetes, depression, CAD with coronary stent placement, history of one psychiatric admission "years back", reported history of depression, possible Alzheimer's dementia with behavioral disturbances and hallucinations, initially patient was admitted on the medical side for evaluation of urinary tract infection possible delirium, patient was offered to admission to the psychiatric inpatient unit on 11/22/2017, patient signed voluntary form, as transferred to the psychiatric inpatient unit but patient change her mind patient wanted to be discharged as soon as possible, nursing staff contacted this hand sign writer patient daughter presented in the unit willing to take her mother back, patient was discharged AGAINST MEDICAL ADVICE. Within less than than one hour patient came back to their emergency room requesting admission to the psychiatric inpatient unit for depression and paranoia as per daughter pt was feeling paranoid, pt was feeling that staff was laughing at her that is why she wanted to be d/c. pt has POA for financial issues but not medical, pt met a criteria for voluntary admission for further observation and stabilization, med management. pt was seen and examined, discussed with staff, pt presented to be very pleasant on superficial level, at the same time oddly related, at times smiling inappropriately. acceptable personal hygiene, good ADLs. Patient states this was due to some confusion on her part regarding her admission to the psychiatric floor despite the fact everything was discussed with pt and pt was in agreement with that. as per staff pt is calm and cooperative. as per collaterals from the daughter by PES pt wanted to leave because pt was feeing that staff laughing at her (no evidence for that). pt denied v/a/t hallucinations, but at times guarded, patient reported that she feels depressed, hopeless, helpless, "at times I'm thinking about suicide but I will never act on it, I left the hospital because of his feeling nurses are laughing at me". at the moment of interview patient was feeling comfortable, reported that staff treats her "very nicely", patient expressed no paranoia, does not appear to be psychotic. pt reported that she slept well. as per collaterals from PMD pt was wondering in the community, was hoarding, pt's daughter was concern about pt's safety, pt was confused and delusional in the community. pt Denied use a drugs, denied smoking, denied alcohol consumption. Medical history: See above. Psychiatric history: Patient reported that she has history of one admission in the past "years back", patient denied history of suicidal attempts, but has history of suicidal ideations. Family history: Patient reported that her mother was diagnosed with Alzheimer's dementia and patient was "traumatized by that", patient reported that she does not want to be demented, patient reported that whenever she feels that she cannot remember things she is "freaking out". Patient reported that she does not want to have Alzheimer's dementia and she does not want her only daughter to go through what patient went through with her demented mother, pt was tearful when was saying that. Social h/o: pt is retired, lives alone Vital Signs Temp Pulse Resp BP Pulse Ox 11/23/17 09:04 69 146/75 11/23/17 07:19 97.9 F 69 20 146/75 11/23/17 01:38 20 11/23/17 01:29 98.1 F 84 18 134/78 98 11/22/17 22:56 98.7 F 84 17 160/96 H 96 patient denied history or being abused. Current Medications: Active Medications Generic Name Dose Route Start Last Admin Trade Name Freq PRN Reason Stop Dose Admin Acetaminophen 650 mg 11/23/17 03:10 11/23/17 11:54 Tylenol 325mg Tab PO 650 mg Q4H PRN Administration Pain, Mild (1-3) Al Hydrox/Mg Hydrox/Simethicone 30 ml 11/23/17 03:10 Maalox Plus 30 Ml PO DAILY PRN Upset Stomach Atorvastatin Calcium 80 mg 11/23/17 08:00 11/23/17 09:01 Lipitor PO 80 mg DAILY JOANNE Administration Citalopram Hydrobromide 10 mg 11/23/17 08:00 11/23/17 09:00 Celexa PO 10 mg DAILY JOANNE Administration Clopidogrel Bisulfate 75 mg 11/23/17 08:00 11/23/17 09:02 Plavix PO 75 mg DAILY JAONNE Administration Digoxin 0.125 mg 11/23/17 14:00 11/23/17 14:03 Digoxin PO 0.125 mg 1400 JOANNE Administration Donepezil HCl 10 mg 11/23/17 22:00 Aricept PO HS JOANNE Magnesium Hydroxide 30 ml 11/23/17 03:10 Milk Of Magnesia PO DAILY PRN Constipation Memantine 5 mg 11/23/17 08:00 11/23/17 09:02 Namenda PO 5 mg DAILY JOANNE Administration Mirtazapine 15 mg 11/23/17 07:09 Remeron PO HS PRN Insomnia Potassium Chloride 40 meq 11/23/17 08:00 11/23/17 09:01 K-Dur 20 Meq Er Tab PO 40 meq BRK JOANNE Administration Propranolol HCl 40 mg 11/23/17 08:00 11/23/17 09:04 Inderal PO 40 mg DAILY JOANNE Administration Quetiapine Fumarate 100 mg 11/23/17 22:00 Seroquel PO HS JOANNE Protocol Quetiapine Fumarate 50 mg 11/23/17 08:00 11/23/17 09:00 Seroquel PO 50 mg DAILY JOANNE Administration Protocol Past Psychiatric History - Past Psychiatric History Previous Treatment History: Inpatient Prior Professional Help: see HPI Prior Psychiatric Treatment: see HPI At what hospital: see HPI Duration: see HPI Nature of Treatment: see HPI Explanation of prior treatment: see HPI History of Abuse: see HPI History of ETOH/Drug Use: see HPI History of Family Illness: see HPI Pertinent Medical Hx (Current Medical&Sleep Prob, Allergies): Allergies Allergy/AdvReac Type Severity Reaction Status Date / Time No Known Allergies Allergy Verified 11/23/17 03:17 Atorvastatin [Lipitor] 80 mg PO DAILY #30 tab 08/02/17 Clopidogrel [Plavix] 75 mg PO DAILY #14 tab 08/02/17 DULoxetine [Cymbalta] 20 mg PO DAILY #30 ecc 08/02/17 Digoxin 0.125 mg PO QAM #30 tab 08/02/17 Memantine [Namenda] 5 mg PO DAILY #30 tab 08/02/17 Mirtazapine [Remeron] 15 mg PO HS PRN #14 tab 08/02/17 Potassium Chloride 40 meq PO DAILY 30 Days tablet.er 08/02/17 Propranolol HCl 40 mg PO DAILY #30 tablet 08/02/17 QUEtiapine [Seroquel] 12.5 mg PO HS #30 tab 08/02/17 Thiamine [Vitamin B1 Tab] 100 mg PO Q8H #30 tab 08/02/17 Donepezil [Aricept] 10 mg PO HS #30 tab 08/31/17 Quetiapine Fumarate [Seroquel] 50 mg PO BID #30 tablet 09/27/17 Review of Systems - Review of Systems Systems not reviewed;Unavailable: Acuity of Condition - EENT Eyes: As Per HPI Ears: As Per HPI Nose/Mouth/Throat: As Per HPI - Breasts Breasts: As Per HPI - Cardiovascular Cardiovascular: As Per HPI - Respiratory Respiratory: As Per HPI - Gastrointestinal Gastrointestinal: As Per HPI - Genitourinary Genitourinary: As Per HPI - Reproductive: Female Reproductive:Female: As Per HPI - Menstruation Menstruation: As Per HPI - Musculoskeletal Musculoskeletal: As Par HPI - Integumentary Integumentary: As Per HPI - Neurological Neurological: As Per HPI - Psychiatric Psychiatric: As Per HPI - Endocrine Endocrine: As Per HPI - Hematologic/Lymphatic Hematologic: As Per HPI Mental Status Examination - Personal Presentation Personal Presentation: Looks stated age - Affect Affect: Constricted (but reactive ) - Motor Activity Motor Activity: Calm - Reliability in Providing Information Reliability in Providing Information: Poor, due to alteration in thoughts, Poor , due to altered mood, Poor, due to cognitve impairment - Speech Speech: Tangential - Mood Mood: Depressed - Formal Thought Process Formal Thought Process: Paranoia - Hallucinations/Delusions Delusions: Persecution - Obsessions/Compulsions Obsessions: None Compulsions: None - Cognitive Functions Orientation: Person, Place, Situation Sensorium: Alert Attention/Concentration: Easily distracted Estimate of Intelligence: Average Judgement: Intact, as evidence by: Insight regarding need for hospitalization - Risk Risk: Diminished functioning - Strength & Assets Inventory Strength & Assets Inventory: Family support, Life experience, Cooperative - Limitations Limitations: Living alone, Other (h/o memory problems) DSM 5 DX - DSM 5 DSM 5 Diagnosis: r/o alzheimer's dementia with behavioral disturbances and psychosis r/o mdd with psychosis (pseudodementia) delirium (improved) - Recommended/Plan of Treatment Treatment Recommendations and Plan of Treatment: milieu, structure, supportive therapy Atorvastatin [Lipitor] 80 mg PO DAILY was resumed Clopidogrel [Plavix] 75 mg PO DAILY was resumed DULoxetine [Cymbalta] 20 mg PO DAILY discontinued Digoxin 0.125 mg PO QAM was resumed Memantine [Namenda] 5 mg PO DAILY was resumed Mirtazapine [Remeron] 15 mg PO HS PRN resumed Potassium Chloride 40 meq PO DAILY resumed Propranolol HCl 40 mg PO DAILYesumed QUEtiapine [Seroquel]was increased to 50 mg at the morning time and 100 mg at the nighttime Thiamine [Vitamin B1 Tab] 100 mg PO Q8H resumed Donepezil [Aricept] 10 mg PO HS esumed Family involvement Follow up on labs Will monitor closely Pt was educated about risk/benefits and alternatives of medications, coping strategies (safety plan, suicide prevention), relapse prevention, importance of follow up with psychiatrist and therapist, stay away from drugs/alcohol/smoking case was discussed with Dr. Olvera Projected ELOS: 7days Prognosis: guarded Discharge Plan and Discharge Criteria: Pt will be not depressed or manic, will be more hopeful, will be not psychotic or anxious, will be not having thoughts of harming self or others, will be tolerating medications well, will not have major side effects, will be able to function, will not pose threat to self or others. - Smoking Cessation Smoking Cessation Initiated: No Reason for not providing: patient denied smoking
--- NOTE | 2017-11-24 07:15 | CON ---
DATE: 11/23/2017 The patient is a 67-year-old female. Patient was seen and examined at the bedside on 11/23/2017. CHIEF COMPLAINT: Anxiety, hallucination. HISTORY OF PRESENT ILLNESS: Ms. Willow Cast is a 67-year-old female, my private patient, with history of congestive heart failure, hypertension, DVT, asthma, dementia, depression, coronary artery disease with coronary stents placement, came to the emergency room for depression, anxiety and hallucinations, but found that patient has hypokalemia and UTI, admitted on the medical floor . Infectious Disease gave antibiotics for a couple of days , potassium was replaced, then potassium became within normal limits and UTI was treated. Now, patient then transferred to Psych floor under the care of Dr. Carla Wilkinson. But, when I saw the patient yesterday at evening time in Psych, she was aggressive and wanted to go home. She wanted to sign against medical advice. Then, the daughter took her against medical advice. They just went a few blocks away, then she realized this was a mistake, mother is living alone and she does not want to leave her mother on other people; mother and daughter understood and they came back to emergency room and was readmitted under the care of Dr. Carla Wilkinson. I am really appreciating Dr. Carla Wilkinson's help. PAST MEDICAL HISTORY: Congestive heart failure, hypertension, peripheral edema +1 sometime, right leg DVT, asthma, dementia, diabetes mellitus, arthritis, history of fall, unsteady gait, GERD, dyspepsia, hematuria sometime, coronary artery disease and coronary stenting. FAMILY HISTORY: Father and mother, noncontributory. HABITS: Former smoker. No drugs. No ethanol now. ALLERGIES: PATIENT IS NOT ALLERGIC WITH ANY MEDICATIONS. HOME MEDICATIONS: Reviewed by me. REVIEW OF SYSTEMS: Patient was seen and examined on the bedside on 11/23/2017, looking comfortable. No nausea, vomiting, or diarrhea. No hematuria or hematochezia. No swelling of the leg. No chest pain. No palpitation. No headache. No dizziness. PHYSICAL EXAMINATION: VITAL SIGNS: Temperature 98.7, pulse 84, respiratory rate 17, blood pressure 150/96 HEENT: Head, normocephalic, atraumatic. Eyes, PERRLA. Extraocular muscles intact. Conjunctivae clear. Nose patent. Mucous membrane moist. NECK: Supple. No carotid bruit, JVD, or thyromegaly. CHEST: Bilaterally symmetrical. HEART: S1, S2 positive. LUNGS: Clear to auscultation. ABDOMEN: Soft. Bowel sounds present. No organomegaly. EXTREMITIES: No edema. No cyanosis. NEUROLOGIC: Patient is awake, alert. Moving all four extremities. No focal deficit. LABORATORY DATA: We do not have recent lab for this admission. MEDICATIONS: The patient was restarted on Aricept, Celexa, digoxin,potassium, Lipitor, naloxone, milk of magnesia, Namenda and Plavix. ASSESSMENT AND PLAN: Ms. Willow Cast is a 67-year-old lady with history of multiple medical problems, has congestive heart failure, hypertension, deep vein thrombosis, asthma, dementia, depression, coronary artery disease with coronary artery stenting and pacemaker placement. Repeat labs. We will see how the potassium. We will follow up. Fariha Olvera MD MTDHaris
[2017-11-24 08:26] LABS: IRON 64 ug/dL (45-180)
[2017-11-24 08:35] LABS: % IRON SATURATION 17 % (20-55); TOTAL IRON BINDING CAPACITY 376 ug/dL (265-497)
[2017-11-24] MEDS: Potassium Chloride 20 mEq ER Tab PO SCH (08:47)
[2017-11-24 11:57] LABS: FOLATE 10.7 ng/mL
[2017-11-24] MEDS: Digoxin 125 mcg (0.125 mg) Tab PO SCH (13:51)
--- NOTE | 2017-11-24 14:14 | PCM.PYCHPN ---
Psychiatric Progress Note - Psychiatric Progress Note Patient seen today, length of contact: 30min Patient Chief Complaint: "I could not find a hair brush but all of a sudden I found it in the refrigerator, it supposed to be me who put it inside, nobody else was there" Problems Identified/Issues Discussed: Suicide/ homicide prevention, past psychiatric h/o, current psychiatric symptoms , medical problems, risk/benefits and alternatives of medications, medications compliance, coping strategies, substance abuse h/o, relapse prevention, importance of follow up with psychiatrist and therapist, discharge plan. Medical Problems: see HPI Diagnostic Results: Lab Results 11/24/17 07:15: Iron 64, TIBC 376, % Saturation 17 L 11/24/17 07:15: Triglycerides 68, Cholesterol 170, LDL Cholesterol Direct 52, HDL Cholesterol 94 H, Vitamin B12 317, Folate 10.7 Vital Signs Temp Pulse Resp BP Pulse Ox 11/24/17 07:00 97.6 F 70 16 120/70 11/23/17 15:00 64 124/76 11/23/17 09:04 69 146/75 11/23/17 07:19 97.9 F 69 20 146/75 11/23/17 01:38 20 11/23/17 01:29 98.1 F 84 18 134/78 98 11/22/17 22:56 98.7 F 84 17 160/96 H 96 DSM 5 Symptoms Update: shortly, Willow Cast is a 67 year old female, with medical history includes CHF, hypertension, DVT, asthma, dementia, diabetes, depression, CAD with coronary stent placement, history of one psychiatric admission "years back", reported history of depression, possible Alzheimer's dementia with behavioral disturbances and hallucinations, initially patient was admitted on the medical side for evaluation of urinary tract infection possible delirium, patient was offered to admission to the psychiatric inpatient unit on 11/22/2017, patient signed voluntary form, as transferred to the psychiatric inpatient unit but patient change her mind patient wanted to be discharged as soon as possible, nursing staff contacted this keno writer patient daughter presented in the unit willing to take her mother back, patient was discharged AGAINST MEDICAL ADVICE. Within less than than one hour patient came back to their emergency room requesting admission to the psychiatric inpatient unit for depression and paranoia as per daughter pt was feeling paranoid, pt was feeling that staff was laughing at her that is why she wanted to be d/c. pt has POA for financial issues but not medical, pt met a criteria for voluntary admission for further observation and stabilization, med management. pt was seen and examined at the treatment team meeting, pt presented to be somewhat confused, pt knows the months, remember that last weekend was a mother' s day weekend, pt remembers her birthday was last week, at the same time pt thinks that now is 2015, and she turned 66, not 67. pt seems to be upset of her forgetfulness, pt said "I don't want to be like my mother", pt said that her mother was "a very hard working lady, she kept home clean, I had everything I needed, it was heart braking to see how she is becoming more and more forgetful, i don't want to become like her", pt said "when I forget things, I am freaking out, I am very anxious", pt was able to draw a clock, was able to distribute numbers and hands of the clock as she was asked, pt does not have constructive apraxia, pt was able to write a sentence "can I write any sentence, even silly?", then pt wrote "HELLO [employer]ACE", when was asked why this sentence, pt said that this is first what was in her mind and it was the first sentence "I learned when I had typing course". pt said that he depression "is little better, I was very depressed, I was just existing, I am not concentrating, I am not eating well, all I did is eating junk food, not existing". pt said that now staff treats her well, pt said that she did not hear voices or seeing things. pt has episodes of forgetfulness, not able to find her room, as per staff pt was argumentative because was not able to find her pocketbook. pt also said at times she forgets where she places things and she is stressed out because of that. "I could not find a hair brush but all of a sudden I found it in the refrigerator, it supposed to be me who put it inside, nobody else was there", if pt would be demented pt will not remember such things. pt tolerates meds well, no side effects observed or reported, AIMS 0, no EPS. pt was advised to start wellbutrin, it might help with concentration and depression for psychosis pt is on seroquel. Impression: r/o mdd with psychosis (pseudodementia) dementia with behavioral disturbances and psychosis delirium is improving Medication Change: Yes (seroquel increased, wellbutrin started, celexa d/c) Medical Record Reviewed: Yes Consults ordered or reviewed: Suicide/ homicide prevention, past psychiatric h/o, current psychiatric symptoms , medical problems, risk/benefits and alternatives of medications, medications compliance, coping strategies, substance abuse h/o, relapse prevention, importance of follow up with psychiatrist and therapist, discharge plan. Mental Status Examination - Cognitive Function Orientation: Person, Place, Situation Memory: Impaired Attention: Poor Concentration: Poor Association: Loose Fund of Knowledge: WNL - Mood Mood: Depressed, Anxious - Affect Affect: Constricted (but reactive ) - Formal Thought Process Formal Thought Process: Paranoia, Circumstantial - Suicidal Ideation Suicidal Ideation: No - Homicidal Ideation Homicidal Ideation: No Goal/Treatment Plan - Goal/Treatment Plan Need for Continued Stay: Remain at risks for inpatient hospitalization, Severe depression anxiety, Discharge may exacerbated symptoms, Severe functional impairment Progress Toward Problem(s) and Goals/Treatment Plan: milieu, structure, supportive therapy Atorvastatin [Lipitor] 80 mg PO DAILY Clopidogrel [Plavix] 75 mg PO DAILY Digoxin 0.125 mg PO QAM was resumed Memantine [Namenda] 5 mg PO DAILY was resumed Mirtazapine [Remeron] 15 mg PO HS for depression and insomnia Potassium Chloride 40 meq PO DAILY Propranolol HCl 40 mg PO DAILY QUEtiapine [Seroquel]10mg po am and 100 mg at the nighttime Thiamine [Vitamin B1 Tab] 100 mg PO Q8H Donepezil [Aricept] 10 mg PO HS wellbutrin 75mg po daily for depression and concentration Family involvement Follow up on labs Will monitor closely Pt was educated about risk/benefits and alternatives of medications, coping strategies (safety plan, suicide prevention), relapse prevention, importance of follow up with psychiatrist and therapist, stay away from drugs/alcohol/smoking case was discussed with Dr. Olvera pt was educated about POA, pt does not want to make decision now, but wants to think about it. Estimated Date of D/C: 11/29/17
[2017-11-25 07:50] LABS: HEMOGLOBIN 11.3 g/dL (12.0-16.0); MEAN CELL VOLUME 92.9 fl (80.0-105.0); MEAN CORPUSCULAR HEMOGLOBIN 30.8 pg (25.0-35.0); MEAN CORPUSCULAR HGB CONC 33.1 g/dl (31.0-37.0); MEAN PLATELET VOLUME 9.2 fl (7.0-11.0); RBC 3.67 10^6/uL (3.5-6.1); RED CELL DISTRIBUTION WIDTH 14.6 % (11.5-14.5); WHITE BLOOD COUNT 3.7 10^3/ul (4.5-11.0)
[2017-11-25] MEDS: Potassium Chloride 20 mEq ER Tab PO SCH (08:45)
--- NOTE | 2017-11-25 08:58 | PCM.PYCHPN ---
Psychiatric Progress Note - Psychiatric Progress Note Patient seen today, length of contact: 25 min Problems Identified/Issues Discussed: I have reviewed admission assessment. Willow Cast is a 67 year old female, with medical history includes CHF, hypertension, DVT, asthma, dementia, diabetes , depression, CAD with coronary stent placement, history of one psychiatric admission "years back", reported history of depression, possible Alzheimer's dementia with behavioral disturbances and hallucinations who was initially admitted on the medical side for evaluation of urinary tract infection and delirium, transferred to the psychiatric inpatient unit on 11/22/2017 then almost immediately patient change her mind and requested discharge. Patient was discharged AMA and then within an hour patient came back to the ER requesting psychiatric admission for depression and paranoia. As per daughter pt had previously requested discharge from the psychiatric unit because she was feeling paranoid that staff was laughing at her I am familiar with this patient from multiple interviews on the medical floor. I interview patient at bedside. She remains pleasant and cooperative during my visit. She is oriented to location, circumstances and year. Aware of the royal wedding occurring this morning. Her grooming is fair. She denies any new concerns, feels her mood is okay and reports that she is sleeping well. Denies any new discomfort, pain or side effects. Her responses are consistent with questioning. She is not responding to hallucinations and denies any perceptual disturbance. Notes indicate that patient can be confused and forgetful on the unit. She is anxious about these symptoms as her family members suffered from dementia. Generally in control but can be irritable she cannot find items. She has been visible on the unit and participates in group activities. There have been no major behavior issues. Diagnostic Results: r/o mdd with psychosis (pseudodementia) dementia with behavioral disturbances and psychosis delirium is improving Medication Change: Yes (seroquel increased, wellbutrin started, celexa d/c) Medical Record Reviewed: Yes Mental Status Examination - Cognitive Function Orientation: Person, Place, Situation Memory: Impaired Attention: Poor Concentration: Poor Association: Loose Fund of Knowledge: WNL - Mood Mood: Depressed, Anxious - Affect Affect: Constricted (but reactive ) - Formal Thought Process Formal Thought Process: Paranoia, Circumstantial - Suicidal Ideation Suicidal Ideation: No - Homicidal Ideation Homicidal Ideation: No Goal/Treatment Plan - Goal/Treatment Plan Need for Continued Stay: Remain at risks for inpatient hospitalization, Severe depression anxiety, Discharge may exacerbated symptoms, Severe functional impairment Progress Toward Problem(s) and Goals/Treatment Plan: * c/w current tx and plan * Vitals reviewed and noted below: Selected Entries 02/14/15 11/25/17 11/25/17 10:00 06:43 08:46 Temperature 98 F 97.7 F Pulse Rate 80 75 81 Respiratory 20 19 Rate Blood Pressure 163/98 H 116/59 L * New weekend labs noted below: Laboratory Results - last 24 hr 11/24/17 11/25/17 11/25/17 07:15 07:00 07:00 WBC 3.7 L RBC 3.67 Hgb 11.3 L Hct 34.1 L MCV 92.9 MCH 30.8 MCHC 33.1 RDW 14.6 H Plt Count 156 MPV 9.2 Sodium 143 Potassium 4.5 Chloride 110 H Carbon Dioxide 23 Anion Gap 15 BUN 27 H Creatinine 1.3 H Est GFR ( Amer) 49 Est GFR (Non-Af Amer) 41 Random Glucose 92 Calcium 9.0 Vitamin B12 317 Folate 10.7 TSH 3rd Generation 11/25/17 07:00 WBC RBC Hgb Hct MCV MCH MCHC RDW Plt Count MPV Sodium Potassium Chloride Carbon Dioxide Anion Gap BUN Creatinine Est GFR ( Amer) Est GFR (Non-Af Amer) Random Glucose Calcium Vitamin B12 Folate TSH 3rd Generation 0.88 Estimated Date of D/C: 11/29/17
[2017-11-25] MEDS: Digoxin 125 mcg (0.125 mg) Tab PO SCH (17:09)
--- NOTE | 2017-11-26 05:57 | PN ---
DATE: 11/25/2017 SUBJECTIVE: The patient is a 67-year-old female. Patient was seen and examined at bedside on 11/25/2017, looking comfortable. No nausea, vomiting or diarrhea. No headache. No dizziness. No chest pain. No palpitation. According to patient when she is in Psych floor, she is not more hallucinating and no more delusional. Night is comfortable. PHYSICAL EXAMINATION: VITAL SIGNS: Temperature 97.7, pulse 60, blood pressure 105/65, respiratory rate 19. HEENT: Head: Normocephalic and atraumatic. Eyes: PERRLA. Extraocular muscles are intact. Conjunctivae are clear. Nose is patent. Mucous membranes are moist. NECK: Supple. No carotid bruits. No JVD or thyromegaly. CHEST: Bilaterally symmetrical. HEART: S1 and S2 positive. LUNGS: Clear to auscultation. ABDOMEN: Soft. Bowel sounds present. No organomegaly. EXTREMITIES: No edema. No cyanosis. NEUROLOGIC: The patient is awake and alert. Moving all four extremities. No focal deficits. MEDICATIONS: Aricept, digoxin, Geodon, Inderal, K-Dur, Lipitor, Maalox, milk of magnesia, Namenda, Plavix, Remeron, Seroquel, Tylenol ,Wellbutrin. LABORATORY DATA: White blood cell is 3.7, hemoglobin 11.2, hematocrit 34.1, platelets 156. Sodium 142, potassium 4.5, BUN 27, creatinine 1.1, saturation 17%. ASSESSMENT AND PLAN: Ms. Willow Cast is a 67-year-old female with leukopenia, anemia, hyperchloremia, renal insufficiency, iron deficiency, was admitted to the Psych floor due to hallucination and delusion last night, that is bothering her, but in the hospitalization, according to her, she is feeling better. History of congestive heart failure, hypertension, peripheral edema, right leg deep venous thrombosis, asthma, dementia, diabetes mellitus, arthritis, history of fall, unsteady gait, gastroesophageal reflux disease, dyspepsia, hematuria, coronary artery disease and coronary stenting. Now, she is in Psych floor of a Psychiatrist care. Continue present treatment. Repeat labs. We will follow up. Fariha Olvera MD [facility] # [id number]
[2017-11-26] MEDS: Potassium Chloride 20 mEq ER Tab PO SCH ×2 (08:31→19:12)
--- NOTE | 2017-11-26 08:37 | PCM.PYCHPN ---
Psychiatric Progress Note - Psychiatric Progress Note Patient seen today, length of contact: 25 min Patient Chief Complaint: "okay except I get irritable when I cannot find my things" Problems Identified/Issues Discussed: I have reviewed admission assessment. Willow Cast is a 67 year old female, with medical history includes CHF, hypertension, DVT, asthma, dementia, diabetes , depression, CAD with coronary stent placement, history of one psychiatric admission "years back", reported history of depression, possible Alzheimer's dementia with behavioral disturbances and hallucinations who was initially admitted on the medical side for evaluation of urinary tract infection and delirium, transferred to the psychiatric inpatient unit on 11/22/2017 then almost immediately patient change her mind and requested discharge. Patient was discharged AMA and then within an hour patient came back to the ER requesting psychiatric admission for depression and paranoia. As per daughter pt had previously requested discharge from the psychiatric unit because she was feeling paranoid that staff was laughing at her I am familiar with this patient from multiple interviews on the medical floor. I interview patient in the hallway and bedside. She remains pleasant and cooperative during my visits. She is oriented to location, month and year. Superficially aware of current circumstances. Her grooming is fair. She denies any new concerns, feels her mood is "okay except I get irritable when I cannot find my things". Patient reports that she is sleeping well. Denies any new discomfort, pain or side effects. Complains of chronic back pain, unchanged. Her responses are consistent with questioning. She is not responding to hallucinations and denies any perceptual disturbance. Staff notes indicate that patient can be confused and forgetful on the unit. She misplaces items and needs help finding her room. Patient has been anxious about her memory issues because family members suffered from dementia. She is generally in control but can be irritable if she cannot find items. She has been visible on the unit and participates in group activities. There have been no major behavior issues. Diagnostic Results: r/o mdd with psychosis (pseudodementia) dementia with behavioral disturbances and psychosis delirium is improving Medication Change: Yes (seroquel increased, wellbutrin started, celexa d/c) Medical Record Reviewed: Yes Mental Status Examination - Cognitive Function Orientation: Person, Place, Situation Memory: Impaired Attention: Poor Concentration: Poor Association: Loose Fund of Knowledge: WNL - Mood Mood: Depressed ("okay except I get irritable when I cannot find my things"), Anxious - Affect Affect: Constricted (but reactive ) - Formal Thought Process Formal Thought Process: Paranoia (improving but still present), Circumstantial - Suicidal Ideation Suicidal Ideation: No - Homicidal Ideation Homicidal Ideation: No Goal/Treatment Plan - Goal/Treatment Plan Need for Continued Stay: Remain at risks for inpatient hospitalization, Severe depression anxiety, Discharge may exacerbated symptoms, Severe functional impairment Progress Toward Problem(s) and Goals/Treatment Plan: * c/w current tx and plan * Appreciate f/u by Dr. Olvera on 11/26/17~c/w present treatment, repeat labs * Vitals reviewed and noted below: 11/26/17 11/26/17 07:30 08:31 Temperature 98.1 F Pulse Rate 74 Respiratory 20 Rate Blood Pressure 152/97 H 152/97 H * New weekend labs noted below: Laboratory Results - last 24 hr 11/24/17 11/25/17 11/25/17 07:15 07:00 07:00 WBC 3.7 L RBC 3.67 Hgb 11.3 L Hct 34.1 L MCV 92.9 MCH 30.8 MCHC 33.1 RDW 14.6 H Plt Count 156 MPV 9.2 Sodium 143 Potassium 4.5 Chloride 110 H Carbon Dioxide 23 Anion Gap 15 BUN 27 H Creatinine 1.3 H Est GFR ( Amer) 49 Est GFR (Non-Af Amer) 41 Random Glucose 92 Calcium 9.0 Vitamin B12 317 Folate 10.7 TSH 3rd Generation 11/25/17 07:00 WBC RBC Hgb Hct MCV MCH MCHC RDW Plt Count MPV Sodium Potassium Chloride Carbon Dioxide Anion Gap BUN Creatinine Est GFR ( Amer) Est GFR (Non-Af Amer) Random Glucose Calcium Vitamin B12 Folate TSH 3rd Generation 0.88 Estimated Date of D/C: 11/29/17
[2017-11-26] MEDS: Digoxin 125 mcg (0.125 mg) Tab PO SCH (16:50)
[2017-11-27] MEDS: Potassium Chloride 20 mEq ER Tab PO SCH (09:02)
--- NOTE | 2017-11-27 09:21 | PN ---
DATE: 11/24/2017 SUBJECTIVE: The patient is seen and examined at the bedside on 11/24/2017. Looking comfortable. No nausea, vomiting or diarrhea. No hematuria or hematochezia. No swelling of the legs. No chest pain, no palpitations, no headache, no dizziness. PHYSICAL EXAMINATION: VITAL SIGNS: Temperature 97.7, pulse 81, blood pressure 100/67, respiratory rate 18. HEENT: Head: Normocephalic, atraumatic. Eyes: PERRLA. Extraocular muscles are intact. Conjunctivae are clear. Nose patent. Mucous membranes are moist. NECK: Supple. No carotid bruit. No JVD or thyromegaly. CHEST: Bilaterally symmetrical. HEART: S1 and S2 positive. LUNGS: Clear to auscultation. ABDOMEN: Soft. Bowel sounds are present. No organomegaly. EXTREMITIES: No edema. No cyanosis. NEUROLOGIC: The patient is awake and alert, moving all 4 extremities with no focal deficit. MEDICATIONS: Aricept, digoxin, Geodon, Inderal, potassium, Lipitor, Maalox, milk of magnesia, Namenda, Plavix, Remeron, Seroquel, Tylenol, Wellbutrin, LABORATORY DATA: White blood cells 3.7, hemoglobin of 11.3, hematocrit 34.1, platelets 156. Sodium 143, potassium 4.5, BUN 27, creatinine 1.3, ASSESSMENT AND PLAN: lady with leukopenia, anemia, hyperchloremia, renal insufficiency, iron deficiency, is admitted on the Psychiatric floor under dr petit Service because of the patient's hallucinations and delusions, history of congestive heart failure, hypertension, peripheral edema, deep venous thrombosis, asthma, dementia, diabetes mellitus, arthritis, history of unsteady gait, gastroesophageal reflux disease, dyspepsia, hematuria, coronary artery disease. GI and DVT prophylaxis. We will repeat labs. We will follow up. Fariha Olvera MD [facility]
[2017-11-27] MEDS: Digoxin 125 mcg (0.125 mg) Tab PO SCH (13:13)
--- NOTE | 2017-11-27 15:20 | PCM.PYCHPN ---
Psychiatric Progress Note - Psychiatric Progress Note Patient seen today, length of contact: 30min Patient Chief Complaint: "I think I am fine most of the times" Problems Identified/Issues Discussed: Suicide/ homicide prevention, past psychiatric h/o, current psychiatric symptoms , medical problems, risk/benefits and alternatives of medications, medications compliance, coping strategies, substance abuse h/o, relapse prevention, importance of follow up with psychiatrist and therapist, discharge plan. Medical Problems: see HPI Diagnostic Results: Lab Results 11/24/17 07:15: Iron 64, TIBC 376, % Saturation 17 L 11/24/17 07:15: Triglycerides 68, Cholesterol 170, LDL Cholesterol Direct 52, HDL Cholesterol 94 H, Vitamin B12 317, Folate 10.7 Vital Signs Temp Pulse Resp BP Pulse Ox 11/24/17 07:00 97.6 F 70 16 120/70 11/23/17 15:00 64 124/76 11/23/17 09:04 69 146/75 11/23/17 07:19 97.9 F 69 20 146/75 11/23/17 01:38 20 11/23/17 01:29 98.1 F 84 18 134/78 98 11/22/17 22:56 98.7 F 84 17 160/96 H 96 DSM 5 Symptoms Update: shortly, Willow Cast is a 67 year old female, with medical history includes CHF, hypertension, DVT, asthma, dementia, diabetes, depression, CAD with coronary stent placement, history of one psychiatric admission "years back", reported history of depression, possible Alzheimer's dementia with behavioral disturbances and hallucinations, initially patient was admitted on the medical side for evaluation of urinary tract infection possible delirium, patient was offered to admission to the psychiatric inpatient unit on 11/22/2017, patient signed voluntary form, as transferred to the psychiatric inpatient unit but patient change her mind patient wanted to be discharged as soon as possible, nursing staff contacted this commercial underwriter patient daughter presented in the unit willing to take her mother back, patient was discharged AGAINST MEDICAL ADVICE. Within less than than one hour patient came back to their emergency room requesting admission to the psychiatric inpatient unit for depression and paranoia as per daughter pt was feeling paranoid, pt was feeling that staff was laughing at her that is why she wanted to be d/c. pt has POA for financial issues but not medical, pt met a criteria for voluntary admission for further observation and stabilization, med management. pt was seen and examined with SW in her office, pt presented to be presently confused, psychotic. pt also was confabulating. pt was not able to learn when is her room, staff keeps reminding her where is it. no major behavioral incidents. pt tolerates meds well, no side effects observed or reported, AIMS 0, no EPS. family meeting will be requested. Impression: r/o mdd with psychosis (pseudodementia) dementia with behavioral disturbances and psychosis delirium is improving Medication Change: Yes (seroquel increased) Medical Record Reviewed: Yes Mental Status Examination - Cognitive Function Orientation: Person, Place, Situation Memory: Impaired Attention: Poor Concentration: Poor Association: Loose Fund of Knowledge: WNL - Mood Mood: Depressed ("okay except I get irritable when I cannot find my things"), Anxious - Affect Affect: Constricted (but reactive ) - Formal Thought Process Formal Thought Process: Paranoia (improving but still present), Circumstantial - Suicidal Ideation Suicidal Ideation: No - Homicidal Ideation Homicidal Ideation: No Goal/Treatment Plan - Goal/Treatment Plan Need for Continued Stay: Remain at risks for inpatient hospitalization, Severe depression anxiety, Discharge may exacerbated symptoms, Severe functional impairment Progress Toward Problem(s) and Goals/Treatment Plan: milieu, structure, supportive therapy Atorvastatin [Lipitor] 80 mg PO DAILY Clopidogrel [Plavix] 75 mg PO DAILY Digoxin 0.125 mg PO QAM was resumed Memantine [Namenda] 5 mg PO DAILY was resumed Mirtazapine [Remeron] 15 mg PO HS for depression and insomnia Potassium Chloride 40 meq PO DAILY Propranolol HCl 40 mg PO DAILY QUEtiapine [Seroquel]10mg po am and 150 mg at the nighttime Thiamine [Vitamin B1 Tab] 100 mg PO Q8H Donepezil [Aricept] 10 mg PO HS wellbutrin 75mg po daily for depression and concentration Family involvement Follow up on labs Will monitor closely Pt was educated about risk/benefits and alternatives of medications, coping strategies (safety plan, suicide prevention), relapse prevention, importance of follow up with psychiatrist and therapist, stay away from drugs/alcohol/smoking case was discussed with Dr. Olvera pt was educated about POA, pt does not want to make decision now, but wants to think about it. Estimated Date of D/C: 11/29/17
[2017-11-28] MEDS: Potassium Chloride 20 mEq ER Tab PO SCH (08:44)
[2017-11-28] MEDS: Digoxin 125 mcg (0.125 mg) Tab PO SCH (13:03)
--- NOTE | 2017-11-28 16:24 | PCM.PYCHPN ---
Psychiatric Progress Note - Psychiatric Progress Note Patient seen today, length of contact: 30min Patient Chief Complaint: "my mood is little better, don't take me wrong, I'm still depressed" Problems Identified/Issues Discussed: Suicide/ homicide prevention, past psychiatric h/o, current psychiatric symptoms , medical problems, risk/benefits and alternatives of medications, medications compliance, coping strategies, substance abuse h/o, relapse prevention, importance of follow up with psychiatrist and therapist, discharge plan. Medical Problems: see HPI Diagnostic Results: Lab Results 11/24/17 07:15: Iron 64, TIBC 376, % Saturation 17 L 11/24/17 07:15: Triglycerides 68, Cholesterol 170, LDL Cholesterol Direct 52, HDL Cholesterol 94 H, Vitamin B12 317, Folate 10.7 Vital Signs Temp Pulse Resp BP Pulse Ox 11/24/17 07:00 97.6 F 70 16 120/70 11/23/17 15:00 64 124/76 11/23/17 09:04 69 146/75 11/23/17 07:19 97.9 F 69 20 146/75 11/23/17 01:38 20 11/23/17 01:29 98.1 F 84 18 134/78 98 11/22/17 22:56 98.7 F 84 17 160/96 H 96 11/25/17 07:00 11/25/17 07:00 Lab Results 11/25/17 07:00: TSH 3rd Generation 0.88 11/25/17 07:00: Sodium 143, Potassium 4.5, Chloride 110 H, Carbon Dioxide 23, Anion Gap 15, BUN 27 H, Creatinine 1.3 H, Est GFR ( Amer) 49, Est GFR ( Non-Af Amer) 41, Random Glucose 92, Calcium 9.0 11/25/17 07:00: WBC 3.7 L, RBC 3.67, Hgb 11.3 L, Hct 34.1 L, MCV 92.9, MCH 30.8 , MCHC 33.1, RDW 14.6 H, Plt Count 156, MPV 9.2 11/24/17 07:15: Iron 64, TIBC 376, % Saturation 17 L 11/24/17 07:15: Triglycerides 68, Cholesterol 170, LDL Cholesterol Direct 52, HDL Cholesterol 94 H, Vitamin B12 317, Folate 10.7 Temp Pulse Resp BP Pulse Ox 97.7 F 57 L 19 127/73 98 11/28/17 06:48 11/28/17 08:43 11/28/17 06:48 11/28/17 08:43 11/23/17 01:29 DSM 5 Symptoms Update: shortly, Willow Cast is a 67 year old female, with medical history includes CHF, hypertension, DVT, asthma, dementia, diabetes, depression, CAD with coronary stent placement, history of one psychiatric admission "years back", reported history of depression, possible Alzheimer's dementia with behavioral disturbances and hallucinations, initially patient was admitted on the medical side for evaluation of urinary tract infection possible delirium, patient was offered to admission to the psychiatric inpatient unit on 11/22/2017, patient signed voluntary form, as transferred to the psychiatric inpatient unit but patient change her mind patient wanted to be discharged as soon as possible, nursing staff contacted this jingle writer patient daughter presented in the unit willing to take her mother back, patient was discharged AGAINST MEDICAL ADVICE. Within less than than one hour patient came back to their emergency room requesting admission to the psychiatric inpatient unit for depression and paranoia as per daughter pt was feeling paranoid, pt was feeling that staff was laughing at her that is why she wanted to be d/c. pt has POA for financial issues but not medical, pt met a criteria for voluntary admission for further observation and stabilization, med management. pt was seen and examined in her room, pt is less confused, as per staff pt was able to find her room, pt is socializing with others, at times pt has episodes of not able to find her purse, but no PRN needed pt was able to calm down after the reassurance and reality education. pt presented to be presently confused, less psychotic, at times pt confabulating. pt said she is less depressed but "I am still depressed but I feel little better ". no major behavioral incidents. pt tolerates meds well, no side effects observed or reported, AIMS 0, no EPS. family meeting requested for . Impression: r/o mdd with psychosis (pseudodementia) dementia with behavioral disturbances and psychosis delirium is improving Medication Change: Yes (Wellbutrin increased) Medical Record Reviewed: Yes Consults ordered or reviewed: Suicide/ homicide prevention, past psychiatric h/o, current psychiatric symptoms , medical problems, risk/benefits and alternatives of medications, medications compliance, coping strategies, substance abuse h/o, relapse prevention, importance of follow up with psychiatrist and therapist, discharge plan. Mental Status Examination - Cognitive Function Orientation: Person, Place, Situation Memory: Impaired Attention: Poor (somewhat better) Concentration: Poor (somewhat better) Association: Loose Fund of Knowledge: WNL - Mood Mood: Depressed ("I'm still depressed, but better"), Anxious - Affect Affect: Constricted (but reactive ) - Formal Thought Process Formal Thought Process: Paranoia (improving but still present), Circumstantial - Suicidal Ideation Suicidal Ideation: No - Homicidal Ideation Homicidal Ideation: No Goal/Treatment Plan - Goal/Treatment Plan Need for Continued Stay: Remain at risks for inpatient hospitalization, Severe depression anxiety, Discharge may exacerbated symptoms, Severe functional impairment Progress Toward Problem(s) and Goals/Treatment Plan: milieu, structure, supportive therapy Atorvastatin [Lipitor] 80 mg PO DAILY Clopidogrel [Plavix] 75 mg PO DAILY Digoxin 0.125 mg PO QAM was resumed Memantine [Namenda] 5 mg PO DAILY was resumed Mirtazapine [Remeron] 15 mg PO HS for depression and insomnia Potassium Chloride 40 meq PO DAILY Propranolol HCl 40 mg PO DAILY QUEtiapine [Seroquel]100mg po am and 150 mg at the nighttime Thiamine [Vitamin B1 Tab] 100 mg PO Q8H Donepezil [Aricept] 10 mg PO HS wellbutrin 75mg po bid for depression and concentration Family involvement Follow up on labs Will monitor closely Pt was educated about risk/benefits and alternatives of medications, coping strategies (safety plan, suicide prevention), relapse prevention, importance of follow up with psychiatrist and therapist, stay away from drugs/alcohol/smoking case was discussed with Dr. Olvera pt was educated about POA, pt does not want to make decision now, but wants to think about it. Estimated Date of D/C: 11/30/17
--- NOTE | 2017-11-28 23:03 | PN ---
DATE: 11/27/2017 SUBJECTIVE: Patient is a 67-year-old female. Patient was seen and examined at the bedside on 11/27/2017, looking comfortable. According to her, "I think, I am fine most of the time." Even nights are getting better. No nausea, vomiting, or diarrhea. No hematuria, no hematochezia. No swelling of the legs. No chest pain, no palpitation. No headache or dizziness. PHYSICAL EXAMINATION: VITAL SIGNS: Temperature 97.6, pulse 70, respiratory rate 15, blood pressure 120/70. HEENT: Head: Normocephalic and atraumatic. Eyes: PERRLA. Extraocular muscles are intact. Conjunctivae are clear. Nose: Patent. Mucous membranes are moist. NECK: Supple. No carotid bruits. No JVD or thyromegaly. CHEST: Bilaterally symmetrical. HEART: S1 and S2 positive. LUNGS: Clear to auscultation. ABDOMEN: Soft. Bowel sounds present. No organomegaly. EXTREMITIES: No edema. No cyanosis. NEUROLOGIC: Patient is awake and alert. Moving all four extremities. No focal deficits. MEDICATIONS: Aricept, digoxin, Geodon, Inderal, potassium, atorvastatin/Lipitor, Maalox, milk of magnesia, K-Dur 20, Plavix, Tylenol. LABORATORY DATA: We do not have recent lab today. ASSESSMENT AND PLAN: Ms. Willow Cast is a 67-year-old female with multiple medical problems, has history of depression, anxiety, anemia, hypertension, hypercholesterolemia, history of gastric bypass, admitted to the Psych under care of Dr. Wilkinson. We will continue present treatment. Repeat lab. Gastrointestinal, deep vein thrombosis prophylaxis. We will follow up. Fariha Olvera MD
--- NOTE | 2017-11-29 04:13 | PN ---
DATE: 11/28/2017 Patient is a 67-year-old female. SUBJECTIVE: Patient is seen and examined at the bedside in her room, complaining about pain in the right hip. According to her, she had a fall; since then she is having pain in the right hip. No nausea, vomiting, or diarrhea. No hematuria or hematochezia. No headache, no dizziness. No chest pain, no palpitations. PHYSICAL EXAMINATION: VITAL SIGNS: Temperature 97.7, pulse is 72, blood pressure 107/65, respiratory rate 19. HEENT: Head: Normocephalic and atraumatic. Eyes: PERRLA. Extraocular muscles are intact. Conjunctivae are clear. Nose: Patent. NECK: Supple. No carotid bruits. No JVD or thyromegaly. CHEST: Bilaterally symmetrical. HEART: S1 and S2 positive. LUNGS: Clear to auscultation. ABDOMEN: Soft. Bowel sounds are present. No organomegaly. EXTREMITIES: No edema. No cyanosis. NEUROLOGIC: Patient is awake and alert. Moving all four extremities. No focal deficit. MEDICATIONS: Aricept, digoxin, Geodon, Inderal, K-Dur, Lipitor, Maalox, milk of magnesia, Namenda, Plavix, Remeron, Seroquel, Tylenol, Wellbutrin. LABORATORY DATA: White blood cells 3.7, hemoglobin of 11.3, hematocrit 34.1, platelets 156. Sodium 143, potassium 4.5, BUN 27, creatinine 1.3, iron saturation 17%. HDL 94. ASSESSMENT AND PLAN: Ms. Willow Cast is a 67-year-old female with leukopenia; anemia; history of hypokalemia, improved; renal insufficiency; iron deficiency; complaining about right hip pain; sent for x-ray of the hip and pelvis, results are pending; history of psych problem, depression, history of hallucination and delusion especially at night; history of congestive heart failure; hypertension; deep venous thrombosis; asthma; dementia; diabetes mellitus; coronary artery disease with coronary stenting placement; history of one psych admission years back, came with depression, possibly Alzheimer dementia, initially the patient was admitted on the medical floor for evaluation and treatment of urinary tract infection and hypokalemia. Now, on psych floor, she is feeling better of deliriums. Went for x-ray of the hip. Tramadol given. We will repeat labs. Patient should be on fall precautions. We will follow up. Fariha Olvera MD [facility]
[2017-11-29 07:02] LABS: HEMOGLOBIN 12.4 g/dL (12.0-16.0); MEAN CELL VOLUME 93.5 fl (80.0-105.0); MEAN CORPUSCULAR HGB CONC 33.2 g/dl (31.0-37.0); MEAN PLATELET VOLUME 9.3 fl (7.0-11.0); RED CELL DISTRIBUTION WIDTH 14.2 % (11.5-14.5)
[2017-11-29 07:21] VITALS: RESP 20
[2017-11-29 07:54] LABS: CALCIUM 9.1 mg/dL (8.4-10.5)
[2017-11-29] MEDS: Potassium Chloride 20 mEq ER Tab PO SCH (08:44)
--- NOTE | 2017-11-29 09:11 | RAD ---
PROCEDURE: Pelvis right hip HISTORY: C/O PAIN ,FELL LAST WEEK COMPARISON: 11/15/2017. Pelvis and both hips TECHNIQUE: Standard protocol for this study/examination. FINDINGS: There are no osseous abnormalities to suggest fracture. The pelvic ring is intact. Preserved femoral-acetabular relationship. Negative study for protrusio, subluxation or dislocation. Degenerative changes: Stable compared to the prior study, moderate in degree-severity IMPRESSION: No acute fractures. No interval change.
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
[2017-11-29] MEDS: Digoxin 125 mcg (0.125 mg) Tab PO SCH (13:03)
--- NOTE | 2017-11-29 14:37 | PN ---
DATE: 11/29/2017 SUBJECTIVE: Patient is a 67-year-old female. Patient was seen and examined on the bedside, looking comfortable. No nausea, vomiting or diarrhea. No hematuria or hematochezia. No swelling of the legs. No chest pain, no palpitations. No headache, no dizziness. PHYSICAL EXAMINATION: VITAL SIGNS: Temperature 98.1, pulse 74, blood pressure 150/97, respiratory rate 20. HEENT: Head: Normocephalic and atraumatic. Eyes: PERRLA. Extraocular muscles are intact. Conjunctivae are clear. Nose: Patent. Mucous membranes are moist. NECK: Supple. No carotid bruits, JVD or thyromegaly. CHEST: Bilaterally symmetrical. HEART: S1 and S2 positive. LUNGS: Clear to auscultation. ABDOMEN: Soft. Bowel sounds are present. No organomegaly. EXTREMITIES: No edema. No cyanosis. NEUROLOGIC: Patient is awake and alert. Moving all four extremities. No focal deficit. MEDICATIONS: Digoxin, Geodon, Inderal, potassium, Lipitor, milk of magnesia. LABORATORY DATA: We do not have recent labs today, but I reviewed old labs. ASSESSMENT AND PLAN: Ms. Willow Cast is a 67-year-old lady with multiple medical problems, has history of leukopenia; anemia; hypokalemia, getting potassium; iron deficiency anemia; has depression; came with hallucinations and delusions, now in the psych floor; history of congestive heart failure; hypertension; deep venous thrombosis; dementia; diabetes mellitus; coronary artery disease; coronary artery stenting placement; one psych admission; note, she is under the care of Dr. Carla Wilkinson. Continue present treatment. Repeat labs. We will follow up. Fariha Olvera MD [facility]
--- NOTE | 2017-11-30 04:47 | PN ---
DATE: 11/29/2017 SUBJECTIVE: Patient is a 67-year-old female. Patient is seen and examined on the bedside, looking comfortable. No nausea, vomiting, or diarrhea. No hematuria or hematochezia. No swelling of the leg. No chest pain, no palpitation. No headache, no dizziness. PHYSICAL EXAMINATION: VITAL SIGNS: Temperature 97.9, pulse 62, blood pressure 120/60, HEENT: Head: Normocephalic and atraumatic. Eyes: PERRLA. Extraocular muscles intact. Conjunctivae clear. Nose: Patent. Mucous membrane moist. NECK: Supple. No carotid bruit. No JVD or thyromegaly. CHEST: Bilaterally symmetrical. HEART: S1, S2 positive. LUNGS: Clear to auscultation. ABDOMEN: Soft. Bowel sounds present. No organomegaly. EXTREMITIES: No edema. No cyanosis. NEUROLOGIC: Patient is awake, alert. Moving all four extremities. No focal deficits. MEDICATIONS: Aricept, digoxin, Geodon, Inderal, K-Dur, Lipitor, Maalox, milk of magnesia, Namenda, Plavix, Seroquel , Tylenol, tramadol, and Wellbutrin. LABORATORY DATA: White blood cells 4, hemoglobin 12.4, hematocrit 37.4, platelets 178. Sodium 144, potassium 5.2, BUN 23, and creatinine 1.1. ASSESSMENT AND PLAN: Ms. Willow Cast is a 67-year-old female with leukopenia, history of anemia, hyperkalemia, increased BUN, iron deficiency. Patient is taking iron supplement, I will stop that and we will repeat potassium level later on. Discussion done with Dr. Wilkinson length of time for the patient and even discussion done with the patient also. Patient has history of depression, hallucination, delusions, congestive heart failure, hypertension, deep vein thrombosis, dementia, diabetes mellitus, coronary artery disease, and coronary artery stenting. Continue present treatment. Repeat labs. Dr. Carla Wilkinson will do family meeting and will plan about discharge planing . Fariha Olvera MD [facility] # [id number] [facility]
[2017-11-30 06:57] VITALS: TEMP 98
[2017-11-30] MEDS: Digoxin 125 mcg (0.125 mg) Tab PO SCH (14:18)
[2017-11-30 14:21] VITALS: PULSE 82
--- NOTE | 2017-11-30 15:15 | PCM.PYCHDC ---
Mental Status Examination - Mental Status Examination Orientation: Person, Place, Situation Memory: Impaired (but significantly improved) Mood: Neutral Affect: Broad (and mood congruent) Speech: Appropriate Attention: Poor (much improved) Concentration: Poor (March improved) Association: WNL Fund of Knowledge: WNL Formal Thought Process: No Impairment Description of patient's judgement and insight: Pt has improved insight into mental and medical illness, pt was compliant with medications and unit rules and regulations, pt was going to groups, was calm, cooperative, socially appropriate, no behavioral incidents, no agitation, no aggression. Psychotic Thoughts and Behaviors: Pt denied v/a/t hallucinations, denied paranoid ideations, pt does not appear to be psychotic, and thought process is goal directed. Suicidal Ideation: No Current Homicidal Ideation?: No Plan: pt adamantly denied thoughts of harming self or others denied intent or plan. Discharge Summary - Discharge Note Reason for Hospitalization: patient was admitted to the psychiatric inpatient unit for evaluation of depressive symptoms, psychosis, inability to function Psychiatric History (includes Medical, Family, Personal Hx): see HPI Laboratory Data: 11/29/17 06:00 11/29/17 06:00 Lab Results 11/29/17 06:00: Sodium 144, Potassium 5.2 H, Chloride 105, Carbon Dioxide 27, Anion Gap 16, BUN 23 H, Creatinine 1.2, Est GFR ( Amer) 54, Est GFR (Non- Af Amer) 45, Random Glucose 84, Calcium 9.1 11/29/17 06:00: WBC 4.0 L, RBC 4.00, Hgb 12.4, Hct 37.4, MCV 93.5, MCH 31.0, MCHC 33.2, RDW 14.2, Plt Count 178, MPV 9.3 11/25/17 07:00: TSH 3rd Generation 0.88 11/25/17 07:00: Sodium 143, Potassium 4.5, Chloride 110 H, Carbon Dioxide 23, Anion Gap 15, BUN 27 H, Creatinine 1.3 H, Est GFR ( Amer) 49, Est GFR ( Non-Af Amer) 41, Random Glucose 92, Calcium 9.0 11/25/17 07:00: WBC 3.7 L, RBC 3.67, Hgb 11.3 L, Hct 34.1 L, MCV 92.9, MCH 30.8 , MCHC 33.1, RDW 14.6 H, Plt Count 156, MPV 9.2 11/24/17 07:15: Iron 64, TIBC 376, % Saturation 17 L 11/24/17 07:15: Triglycerides 68, Cholesterol 170, LDL Cholesterol Direct 52, HDL Cholesterol 94 H, Vitamin B12 317, Folate 10.7 Vital Signs Temp Pulse Resp BP Pulse Ox 11/30/17 08:34 69 122/76 11/30/17 06:57 98.0 F 69 20 122/76 11/29/17 16:04 62 121/66 11/29/17 08:45 71 120/71 11/29/17 07:14 97.9 F 71 20 120/71 11/28/17 16:00 72 107/65 11/28/17 08:43 57 L 127/73 11/28/17 06:48 97.7 F 57 L 19 127/73 11/27/17 16:00 65 130/75 11/27/17 09:01 91 H 178/90 H 11/27/17 07:02 98.1 F 91 H 20 178/90 H 11/26/17 15:00 64 101/50 L 11/26/17 08:31 74 152/97 H 11/26/17 07:30 98.1 F 74 20 152/97 H 11/25/17 15:00 60 105/65 11/25/17 11:23 97.7 F 75 19 116/59 L 11/25/17 08:46 81 100/67 11/25/17 06:43 97.7 F 75 19 116/59 L 11/24/17 22:00 67 90/58 L 11/24/17 07:00 97.6 F 70 16 120/70 11/23/17 15:00 64 124/76 11/23/17 09:04 69 146/75 11/23/17 07:19 97.9 F 69 20 146/75 11/23/17 01:38 20 11/23/17 01:29 98.1 F 84 18 134/78 98 11/22/17 22:56 98.7 F 84 17 160/96 H 96 Consultations:: List each consultation separately and include: 1. Reason for request. 2. Findings. 3. Follow-up Consultations: Suicide/ homicide prevention, past psychiatric h/o, current psychiatric symptoms , medical problems, risk/benefits and alternatives of medications, medications compliance, coping strategies, substance abuse h/o, relapse prevention, importance of follow up with psychiatrist and therapist, discharge plan. Summary of Hospital Course include:: 1. Description of specific treatment plan utilized for patients during their course of treatmen. 2. Summarize the time- course for resolution of acute symptoms and/or regressed behaviors. 3. Describe issues identified and worked on during hospitalization. 4. Describe medication utilized. 5. Describe medical problems identified and treated. 6. Reassessment of suicide risk Summary of Hospital Course: shortly, Willow Cast is a 67 year old female, with medical history includes CHF, hypertension, DVT, asthma, dementia, diabetes, depression, CAD with coronary stent placement, history of one psychiatric admission "years back", reported history of depression, possible Alzheimer's dementia with behavioral disturbances and hallucinations, initially patient was admitted on the medical side for evaluation of urinary tract infection possible delirium, patient was offered to admission to the psychiatric inpatient unit on 11/22/2017, patient signed voluntary form, as transferred to the psychiatric inpatient unit but patient change her mind patient wanted to be discharged as soon as possible, nursing staff contacted this publicity writer patient daughter presented in the unit willing to take her mother back, patient was discharged AGAINST MEDICAL ADVICE. Within less than than one hour patient came back to their emergency room requesting admission to the psychiatric inpatient unit for depression and paranoia as per daughter pt was feeling paranoid, pt was feeling that staff was laughing at her that is why she wanted to be d/c. pt has POA for financial issues but not medical, pt met a criteria for voluntary admission for further observation and stabilization, med management. Initially pt presented to be very pleasant on superficial level, at the same time oddly related, at times smiling inappropriately. acceptable personal hygiene, good ADLs. Patient states this was due to some confusion on her part regarding her admission to the psychiatric floor despite the fact everything was discussed with pt and pt was in agreement with that. as per staff pt is calm and cooperative. as per collaterals from the daughter by PES pt wanted to leave because pt was feeing that staff laughing at her (no evidence for that). pt denied v/a/t hallucinations, but at times guarded, patient reported that she feels depressed, hopeless, helpless, "at times I'm thinking about suicide but I will never act on it, I left the hospital because of his feeling nurses are laughing at me". at the moment of interview patient was feeling comfortable, reported that staff treats her "very nicely", patient expressed no paranoia, does not appear to be psychotic. pt reported that she slept well. as per collaterals from PMD pt was wondering in the community, was hoarding, pt's daughter was concern about pt's safety, pt was confused and delusional in the community. pt Denied use a drugs, denied smoking, denied alcohol consumption. Medical history: See above. Psychiatric history: Patient reported that she has history of one admission in the past "years back", patient denied history of suicidal attempts, but has history of suicidal ideations. Family history: Patient reported that her mother was diagnosed with Alzheimer's dementia and patient was "traumatized by that", patient reported that she does not want to be demented, patient reported that whenever she feels that she cannot remember things she is "freaking out". Patient reported that she does not want to have Alzheimer's dementia and she does not want her only daughter to go through what patient went through with her demented mother, pt was tearful when was saying that. Social h/o: pt is retired, lives alone Vital Signs Temp Pulse Resp BP Pulse Ox 11/23/17 09:04 69 146/75 11/23/17 07:19 97.9 F 69 20 146/75 11/23/17 01:38 20 11/23/17 01:29 98.1 F 84 18 134/78 98 11/22/17 22:56 98.7 F 84 17 160/96 H 96 patient denied history or being abused. over the course of this hospitalization initially patient was very confused, was not able to locate her room, patient also had periods of agitation and restlessness because patient was not able to locate her belongings, over the course of this hospitalization patient was stabilized on the following medications: QUEtiapine [Seroquel]100mg po am and 200 mg at the nighttime sonata 5mg po hs for insomnia wellbutrin 75mg po bid for depression and concentration medical meds were prescribed by : Atorvastatin [Lipitor] 80 mg PO DAILY Clopidogrel [Plavix] 75 mg PO DAILY Digoxin 0.125 mg PO QAM was resumed Memantine [Namenda] 5 mg PO DAILY was resumed Potassium Chloride 40 meq PO DAILY Propranolol HCl 40 mg PO DAILY Thiamine [Vitamin B1 Tab] 100 mg PO Q8H Donepezil [Aricept] 10 mg PO HS patient tolerated all medications well, no side effects observed or reported, aims 0, no EPS. Patient forgetfulness improved very much so, patient was able to locate her room , patient was participating in unit activities, patient also does not exhibit any signs of depression, patient is very pleasant, socializing with others, socially appropriate. Family meeting was scheduled for today but unfortunately patient's daughter cannot participate. Over the course of this hospitalization pt was attending groups, pt also had medication management, had therapeutic milieu. Overall pt improved significantly, pt's affect became brighter, pt was less depressed "I am not depressed, my memory does not bother me anymore", has realistic future oriented plans, pt also does not appear to be psychotic, or anxious, pt was socially appropriate, no behavioral issues, pts insight improved as well and soon pt deemed to be ready for discharge. At the time of the discharge pt denied been depressed, denied thoughts of harming self or others, denied psychotic symptoms, and pt does not appeared to be psychotic, denied been anxious, pt is not in imminent danger to self or others, will be following up at 's office [place], information about follow up appointment, time and address provided to the pt, it is patient responsibility to follow up with outpatient clinic, PMD as well as specialists ( see SW note for more detailed information). In case pt will need to obtain results of studies pending at discharge pt was provided with contact information of Psychiatric Inpatient unit [phone] as well as Medical Record Department [phone]. pt was provided with prescriptions for all of medications (please see medication reconciliation form) Pt was educated about safety plan in case of worsening of symptoms or in case of suicidal or homicidal ideation call 911 or go to the nearest ER, also was educated to take meds as prescribed and stay away from drugs, pt verbalized understanding. - Diagnosis (1) Dementia Current Visit: Yes Status: Chronic Priority: Medium (2) MDD (major depressive disorder) Current Visit: Yes Status: Chronic Priority: High - Final Diagnosis (DSM 5) Condition upon Discharge: IMPROVED Disposition: HOME/ ROUTINE Follow-up Treatment Plan: At the time of the discharge pt denied been depressed, denied thoughts of harming self or others, denied psychotic symptoms, and pt does not appeared to be psychotic, denied been anxious, pt is not in imminent danger to self or others, will be following up at 's office [place], information about follow up appointment, time and address provided to the pt, it is patient responsibility to follow up with outpatient clinic, PMD as well as specialists ( see SW note for more detailed information). In case pt will need to obtain results of studies pending at discharge pt was provided with contact information of Psychiatric Inpatient unit [phone] as well as Medical Record Department [phone]. pt was provided with prescriptions for all of medications (please see medication reconciliation form) Pt was educated about safety plan in case of worsening of symptoms or in case of suicidal or homicidal ideation call 911 or go to the nearest ER, also was educated to take meds as prescribed and stay away from drugs, pt verbalized understanding. Prescriptions/Medication Reconciliation: Atorvastatin [Lipitor] 80 mg PO DAILY #7 tab buPROPion [Wellbutrin] 75 mg PO BID #30 tab Clopidogrel [Plavix] 75 mg PO DAILY #7 tab Digoxin 0.125 mg PO 1400 #7 tab Donepezil [Aricept] 10 mg PO HS #14 tab Memantine [Namenda] 5 mg PO DAILY #14 tab Propranolol [Inderal] 40 mg PO DAILY #7 tab QUEtiapine [Seroquel] 100 mg PO DAILY #14 tab Quetiapine Fumarate [Seroquel] 200 mg PO HS #14 tablet Zaleplon [Sonata] 5 mg PO HS #14 cap - Smoking Cessation Smoking Cessation Medication prescribed: No Reason for not providing: denies smoking - Antipsychotic Medications Pt discharged on 2 or more routine antipsychotic medications: No
[2017-11-30 16:44] VITALS: BP 113/73; PULSE 76
== END 2017-11-30 22:03 | disposition home or self-care (01) | DRG 885 ==
LOC: ED 22:22 → ERH 11-23 00:30 → PSYC 11-23 01:23
PROVIDERS: ADMIT Psychiatry & Neurology Psychiatry; ATTEND Psychiatry & Neurology Psychiatry
DX: F33.3 Major depressive disorder, recurrent, severe with psychotic symptoms (principal); F02.81 Dementia in other diseases classified elsewhere, unspecified severity, with behavioral disturbance; G30.9 Alzheimer's disease, unspecified; I11.0 Hypertensive heart disease with heart failure; I50.9 Heart failure, unspecified; I25.10 Atherosclerotic heart disease of native coronary artery without angina pectoris; F41.9 Anxiety disorder, unspecified; D50.9 Iron deficiency anemia, unspecified; E78.00 Pure hypercholesterolemia, unspecified; J45.909 Unspecified asthma, uncomplicated; E87.5 Hyperkalemia; K21.9 Gastro-esophageal reflux disease without esophagitis; E11.9 Type 2 diabetes mellitus without complications; R31.9 Hematuria, unspecified; M19.90 Unspecified osteoarthritis, unspecified site; N28.9 Disorder of kidney and ureter, unspecified; D72.819 Decreased white blood cell count, unspecified; E87.8 Other disorders of electrolyte and fluid balance, not elsewhere classified; R26.81 Unsteadiness on feet; M25.551 Pain in right hip; Z95.5 Presence of coronary angioplasty implant and graft; Z87.891 Personal history of nicotine dependence; Z95.0 Presence of cardiac pacemaker; Z86.718 Personal history of other venous thrombosis and embolism; Z79.02 Long term (current) use of antithrombotics/antiplatelets; Z98.84 Bariatric surgery status

== ENCOUNTER 2017-12-12 17:52 | Inpatient (IN) | payer MEDICARE, OTHER ==
[2017-12-12] MEDS ORDERED: Sodium Chloride 0.9% 500 ML IV STA (20:06)
[2017-12-12 20:45] LABS: VENOUS BLOOD GAS BASE EXCESS -10.4 mmol/L (0.0-2.0); VENOUS BLOOD GAS PO2 39 mm/Hg (30-55)
[2017-12-12 20:50] LABS: VENOUS BLOOD PH 7.18 (7.32-7.43)
[2017-12-12 20:55] LABS: BASO # 0.01 K/mm3 (0.0-2.0); BASO % 0.2 % (0.0-3.0); EOS % 0.5 % (1.5-5.0); GRAN # 2.68 (1.4-6.5); GRAN % 66.4 % (50.0-68.0); HEMOGLOBIN 10.4 g/dL (12.0-16.0); LYMPH # 1.1 (1.2-3.4); LYMPH % 27.5 % (22.0-35.0); MEAN CELL VOLUME 91.5 fl (80.0-105.0); MEAN CORPUSCULAR HEMOGLOBIN 30.6 pg (25.0-35.0); MEAN CORPUSCULAR HGB CONC 33.4 g/dl (31.0-37.0); MEAN PLATELET VOLUME 8.9 fl (7.0-11.0); MONO # 0.2 (0.1-0.6); MONO % 5.4 % (1.0-6.0); RBC 3.4 10^6/uL (3.5-6.1); RED CELL DISTRIBUTION WIDTH 14.1 % (11.5-14.5)
[2017-12-12 21:11] LABS: B-TYPE NATRIURETIC PEPTIDE 112 pg/mL (0-450); TROPONIN I < 0.01 ng/mL
[2017-12-12] MEDS ORDERED: Dextrose 50% SYRINGE Inj (50 ml) IVP STA ×2 (21:28→22:14)
[2017-12-12] MEDS ORDERED: Dextrose 50% SYRINGE Inj (50 ml) ONE (21:30)
[2017-12-12 21:35] LABS: ALB/GLOB RATIO 0.9 (1.1-1.8); ALBUMIN 2.3 g/dL (3.0-4.8); ALT/SGPT 36 U/L (7-56); AST/SGOT 22 U/L (14-36); BLOOD UREA NITROGEN 16 mg/dL (7-21); CALCIUM 6.9 mg/dL (8.4-10.5); GFR AFRICAN-AMERICAN > 60; GFR NON-AFRICAN AMERICAN > 60
[2017-12-12] MEDS ORDERED: Potassium Chloride 20 mEq ER Tab PO STA (21:50)
[2017-12-12] MEDS ORDERED: Magnesium Sulfate 1 gm in D5W 1 GM/100 ML BAG IVPB ONE (22:20)
[2017-12-12] MEDS ORDERED: Dextrose 5%/0.45% NS 1,000 ML IV SCH (22:30)
--- NOTE | 2017-12-12 22:35 | CT ---
EXAM: CT Lumbar Spine Without Intravenous Contrast EXAM DATE/TIME: 12/12/2017 6:52 PM CLINICAL HISTORY: The patient age is 67 years old and is female; Injury or trauma; Fall; Initial encounter; Blunt trauma (contusions or hematomas); Additional info: Fall/syncope/back pain Facility exam id and description: Ct lumbs lumbar spine w/o contrast TECHNIQUE: Axial computed tomography images of the lumbar spine without intravenous contrast. All CT scans at this facility use one or more dose reduction techniques, viz.: automated exposure control; ma/kV adjustment per patient size (including targeted exams where dose is matched to indication; i.e. head); or iterative reconstruction technique. Coronal and sagittal reformatted images were created and reviewed. COMPARISON: No relevant prior studies available. FINDINGS: Vertebrae: The lumbar vertebral bodies are normal in height, and without abnormal subluxation or acute fracture. Osteopenia. There is mild angulation of the lumbar spine to the right. The T11 spinous process is hypoplastic or absent. There is hypoplasia of the T12 spinous process. Facet arthropathy is identified from L3-4 through L5-S1. Discs/spinal canal/neural foramina: Minimal narrowing of the thecal sac is visualized at L3-4, with hypertrophy of the ligamentum flavum. There is minimal disc bulging at L4-5, without significant narrowing of the thecal sac. There is no significant narrowing of the thecal sac at the remaining lumbar levels. Advanced degenerative changes are visualized at T11-12, with a decrease of disc height as well as disc bulge/osteophyte complexes. A vacuum disc phenomenon is seen at this level. Mild disc bulge is visualized at T11-12, without significant narrowing of the thecal sac. Right neural foramina is identified at T11-12, L3-4, and L5-S1. Left neural foraminal narrowing is identified at T11-12, L1-2, L2-3, and L4-5. Vasculature: There is atherosclerotic calcification of the abdominal aorta. Other findings: Minimal gas is visualized within the bilateral sacroiliac joints. IMPRESSION: 1. The lumbar vertebral bodies are normal in height, and without abnormal subluxation or acute fracture. 2. Degenerative changes are noted above within the lumbar and lower thoracic spine. Minimal narrowing of the thecal sac is visualized at L3-4. There is minimal disc bulging at L4-5, without significant narrowing of the thecal sac. Advanced degenerative changes are visualized at T11-12. 3. Neural foramina is identified at multiple lumbar levels, as well as the T11-12 level, as described above. This can be further evaluated with a nonemergent MRI. 4. Additional CT findings described above.
--- NOTE | 2017-12-12 22:50 | CT ---
EXAM: CT Left Lower Extremity Without Intravenous Contrast, Hip EXAM DATE/TIME: 12/12/2017 6:52 PM CLINICAL HISTORY: The patient age is 67 years old and is female; Injury or trauma; Fall; Initial encounter; Blunt trauma; Hip; Left; Additional info: Fall, hip pain Facility exam id and description: Ct hipleft hip without contrast left TECHNIQUE: Axial computed tomography images of the left hip without intravenous contrast. All CT scans at this facility use one or more dose reduction techniques, viz.: automated exposure control; ma/kV adjustment per patient size (including targeted exams where dose is matched to indication; i.e. head); or iterative reconstruction technique. Coronal and sagittal reformatted images were created and reviewed. COMPARISON: DX - HIP BATOOL W/WO PELVIS 2 VIEWS 2017-11-15 13:36 FINDINGS: Bones/joints: There is no acute fracture or dislocation of the left hip. There is spurring of the superior left acetabulum. There is acetabular overcoverage of the femoral head, and pincer-type femoroacetabular impingement is considered. There is narrowing of the left hip joint space superiorly, consistent with arthropathy. There is subcapital spurring of the left femoral head. There is cortical irregularity of the left femoral neck. There is degenerative spurring of the left greater trochanter. Soft tissues: There is mild soft tissue swelling lateral to the left hip. CT suboptimal for evaluation of ligaments, tendons, and labrum. IMPRESSION: 1. There is no acute fracture or dislocation of the left hip. 2. Degenerative change/arthropathy is noted above involving the left hip. 3. There is spurring of the superior left acetabulum. There is acetabular overcoverage of the femoral head, and pincer-type femoroacetabular impingement is considered. This can be further evaluated with nonemergent MRI arthrography. 4. There is mild soft tissue swelling lateral to the left hip.
[2017-12-12 22:57] LABS: ARTERIAL BLOOD GAS HCO3 23.2 mmol/L (21-28); ARTERIAL BLOOD GAS HEMOGLOBIN 11.3 g/dL (11.7-17.4); ARTERIAL BLOOD GAS O2 CAPACITY 15.5 mL/dl (16-24); ARTERIAL BLOOD GAS O2 CONTENT 15.3 ML/dl (15-23); ARTERIAL BLOOD GAS O2 SAT 98.6 % (95-98); ARTERIAL BLOOD GAS PCO2 43 mm/Hg (35-45); ARTERIAL BLOOD GAS PH 7.34 (7.35-7.45); ARTERIAL BLOOD GAS TCO2 24.5 mmol.L (22-28)
--- NOTE | 2017-12-13 00:11 | CP.PCM.CON ---
<LcKylee - Last Filed: 12/13/17 00:13> History of Present Illness - History of Present Illness History of Present Illness: ICU Consult Note HPI: Patient is a 67 year old female with a past medical history of dementia, depression, CAD s/p PCI, DM, gastric bypass, chronic diarrhea, DVT in right leg , and TIA who presents to the ED complaining of leg pain/weakness, fatigue, dizziness, SOB, depression, and decreased appetite. Patient says she has a long history of these problems and has had frequent falls in the past. She came to the ED because her daughter was concerned that she was not eating well and asked her to come. Patient says she does not have an appetite and admits to dull abdominal pain located just below her umbilicus. She says she has had this pain for >6 months and it is associated with alternating diarrhea and constipation. Patient says she was told she may have Celiac disease but never had a biopsy done to confirm. In the ED, patient was found to hypoglycemic even after administration of D50, and hypokalemic with a potassium of 2.7. Patient says she used to take Metformin for her DM in the past but stopped 1 year ago. She was eating a sandwich during the exam and says she is feeling better than when she first came to the ED. She denies any fever, chills, headache, changes in vision/hearing, focal weakness or loss of sensation, chest pain, palpitations , nausea, vomiting, changes in urinary habits, and lower extremity swelling. History slightly limited due to history of dementia. PMH: dementia, depression, CAD s/p PCI, DM, gastric bypass, chronic diarrhea, DVT in right leg, and TIA Meds: Propranolol 40 mg QD Plavix 75 mg QD Atorvastatin 80 mg QD Seroquel 100 mg QD and 200 mg HS Memantine 5 mg QD Digoxin 0.125 mg QD Ultram 50 mg BID Wellbutrin 75 mg BID Zaleplon 5 mg HS Allergies: Gluten (diarrhea) PSH: gastric bypass FH: father with NH at age 42, aunt with throat cancer SH: former smoker (quit 20 years ago), denies alcohol and elicit drug use Review of Systems - Review of Systems Systems not reviewed;Unavailable: Dementia All systems: reviewed and no additional remarkable complaints except (as per HPI ) Past Patient History - Infectious Disease Hx of Infectious Diseases: None - Tetanus Immunizations Tetanus Immunization: Unknown - Past Medical History & Family History Past Medical History?: Yes - Past Social History Smoking Status: Former Smoker - CARDIAC Hx Cardiac Disorders: Yes Hx Congestive Heart Failure: Yes Hx Hypertension: Yes Hx Peripheral Edema: Yes - PULMONARY Hx Respiratory Disorders: Yes Hx Asthma: Yes - NEUROLOGICAL Hx Neurological Disorder: Yes Hx Alzheimer's Disease: Yes Hx Dementia: Yes - HEENT Hx HEENT Problems: Yes Other/Comment: glasses - RENAL Hx Chronic Kidney Disease: No - ENDOCRINE/METABOLIC Hx Endocrine Disorders: Yes Hx Diabetes Mellitus Type 2: Yes - HEMATOLOGICAL/ONCOLOGICAL Hx Blood Disorders: Yes Hx Anemia: Yes - INTEGUMENTARY Hx Dermatological Problems: No - MUSCULOSKELETAL/RHEUMATOLOGICAL Hx Musculoskeletal Disorders: Yes Hx Arthritis: Yes Hx Falls: Yes Hx Unsteady Gait: Yes - GASTROINTESTINAL Hx Gastrointestinal Disorders: Yes Hx Gastroesophageal Reflux: Yes - GENITOURINARY/GYNECOLOGICAL Hx Genitourinary Disorders: Yes Hx Urinary Tract Infection: Yes - PSYCHIATRIC Hx Psychophysiologic Disorder: Yes Hx Anxiety: Yes Hx Depression: Yes Hx Substance Use: No - SURGICAL HISTORY Hx Surgeries: Yes Hx Cardiac Catheterization: Yes Hx Coronary Stent: Yes Hx Gastric Bypass Surgery: Yes Other/Comment: hammertoes both feet - ANESTHESIA Hx Anesthesia: Yes Hx Anesthesia Reactions: No Hx Malignant Hyperthermia: No Meds Allergies/Adverse Reactions: Allergies Allergy/AdvReac Type Severity Reaction Status Date / Time gluten Allergy DIARRHEA Verified 12/12/17 17:55 - Medications Medications: Current Medications Potassium Chloride (Potassium Chloride 10 Meq/100 Ml) 10 meq in 100 mls @ 50 mls/hr IVPB Q2H [facility] Stop: 12/13/17 01:59 Dextrose/Sodium Chloride (Dextrose 5%/0.45% Ns 1000 Ml) 1,000 mls @ 80 mls/hr IV .[id number] [facility] Last Admin: 12/12/17 23:00 Dose: 80 mls/hr Physical Exam - Constitutional Appears: Non-toxic, No Acute Distress - Head Exam Head Exam: ATRAUMATIC, NORMAL INSPECTION, NORMOCEPHALIC - Eye Exam Eye Exam: EOMI, Normal appearance, PERRL - ENT Exam ENT Exam: Mucous Membranes Moist, Normal Exam - Neck Exam Neck exam: Positive for: Normal Inspection - Respiratory Exam Respiratory Exam: Clear to Auscultation Bilateral, NORMAL BREATHING PATTERN - Cardiovascular Exam Cardiovascular Exam: REGULAR RHYTHM, +S1, +S2. absent: Diastolic murmur, Gallop , Rubs, Systolic Murmur - GI/Abdominal Exam GI & Abdominal Exam: Normal Bowel Sounds, Soft. absent: Distended, Tenderness - Extremities Exam Extremities exam: Positive for: normal capillary refill. Negative for: calf tenderness, pedal edema Additional comments: varicose veins - Neurological Exam Neurological exam: Alert, Oriented x3 - Psychiatric Exam Psychiatric exam: Normal Affect, Normal Mood - Skin Skin Exam: Dry, Intact, Normal Color, Warm Results - Vital Signs Recent Vital Signs: Last Vital Signs Temp 97.6 F 12/12/17 22:07 Pulse 65 12/12/17 22:07 Resp 16 12/12/17 22:07 BP 141/81 12/12/17 22:07 Pulse Ox 96 12/12/17 22:07 - Labs Result Diagrams: 12/12/17 20:33 12/12/17 20:33 Labs: Laboratory Results - last 24 hr 12/12/17 12/12/17 12/12/17 20:33 20:33 20:33 WBC 4.0 L RBC 3.40 L Hgb 10.4 L D Hct 31.1 L MCV 91.5 MCH 30.6 MCHC 33.4 RDW 14.1 Plt Count 121 MPV 8.9 Gran % 66.4 Lymph % (Auto) 27.5 [place] % (Auto) 5.4 Eos % (Auto) 0.5 L Baso % (Auto) 0.2 Gran # 2.68 Lymph # (Auto) 1.1 L [place] # (Auto) 0.2 Eos # (Auto) 0.0 Baso # (Auto) 0.01 pCO2 pO2 39 HCO3 ABG pH ABG Total CO2 ABG O2 Saturation ABG O2 Content ABG Base Excess ABG Hemoglobin ABG Carboxyhemoglobin POC ABG HHb (Measured) ABG Methemoglobin ABG O2 Capacity VBG pH 7.18 L* VBG pCO2 48.0 VBG HCO3 17.9 L VBG Total CO2 19.4 L VBG O2 Sat (Calc) 75.1 H VBG Base Excess -10.4 L VBG Potassium 2.1 L* Hgb O2 Saturation Sodium 146 145.0 Chloride 115 H 123.0 H Glucose 57 L Lactate 0.8 FiO2 21.0 Potassium 2.7 L* D Carbon Dioxide 22 Anion Gap 11 BUN 16 Creatinine 0.8 Est GFR ( Amer) > 60 Est GFR (Non-Af Amer) > 60 POC Glucose (mg/dL) Random Glucose 66 L Calcium 6.9 L* Magnesium Total Bilirubin 0.2 AST 22 ALT 36 Alkaline Phosphatase 49 Lactate Dehydrogenase 298 L Total Creatine Kinase 78 Troponin I < 0.01 NT-Pro-B Natriuret Pep 112 Total Protein 5.0 L Albumin 2.3 L Globulin 2.6 Albumin/Globulin Ratio 0.9 L Venous Blood Potassium 2.1 L* Digoxin 12/12/17 12/12/17 12/12/17 20:33 20:33 21:35 WBC RBC Hgb Hct MCV MCH MCHC RDW Plt Count MPV Gran % Lymph % (Auto) [place] % (Auto) Eos % (Auto) Baso % (Auto) Gran # Lymph # (Auto) [place] # (Auto) Eos # (Auto) Baso # (Auto) pCO2 pO2 HCO3 ABG pH ABG Total CO2 ABG O2 Saturation ABG O2 Content ABG Base Excess ABG Hemoglobin ABG Carboxyhemoglobin POC ABG HHb (Measured) ABG Methemoglobin ABG O2 Capacity VBG pH VBG pCO2 VBG HCO3 VBG Total CO2 VBG O2 Sat (Calc) VBG Base Excess VBG Potassium Hgb O2 Saturation Sodium Chloride Glucose Lactate FiO2 Potassium Carbon Dioxide Anion Gap BUN Creatinine Est GFR ( Amer) Est GFR (Non-Af Amer) POC Glucose (mg/dL) 29 L* Random Glucose Calcium Magnesium 1.4 L Total Bilirubin AST ALT Alkaline Phosphatase Lactate Dehydrogenase Total Creatine Kinase Troponin I NT-Pro-B Natriuret Pep Total Protein Albumin Globulin Albumin/Globulin Ratio Venous Blood Potassium Digoxin 0.5 L 12/12/17 22:53 WBC RBC Hgb Hct MCV MCH MCHC RDW Plt Count MPV Gran % Lymph % (Auto) [place] % (Auto) Eos % (Auto) Baso % (Auto) Gran # Lymph # (Auto) [place] # (Auto) Eos # (Auto) Baso # (Auto) pCO2 43 pO2 83.0 HCO3 23.2 ABG pH 7.34 L ABG Total CO2 24.5 ABG O2 Saturation 98.6 H ABG O2 Content 15.3 ABG Base Excess -2.6 L ABG Hemoglobin 11.3 L ABG Carboxyhemoglobin 2.0 H POC ABG HHb (Measured) 1.4 ABG Methemoglobin 1.0 ABG O2 Capacity 15.5 L VBG pH VBG pCO2 VBG HCO3 VBG Total CO2 VBG O2 Sat (Calc) VBG Base Excess VBG Potassium Hgb O2 Saturation 95.7 Sodium Chloride Glucose Lactate FiO2 21.0 Potassium Carbon Dioxide Anion Gap BUN Creatinine Est GFR ( Amer) Est GFR (Non-Af Amer) POC Glucose (mg/dL) Random Glucose Calcium Magnesium Total Bilirubin AST ALT Alkaline Phosphatase Lactate Dehydrogenase Total Creatine Kinase Troponin I NT-Pro-B Natriuret Pep Total Protein Albumin Globulin Albumin/Globulin Ratio Venous Blood Potassium Digoxin Assessment & Plan - Assessment and Plan (Free Text) Assessment: Patient is a 67 year old female with a past medical history of dementia, depression, CAD s/p PCI, DM, gastric bypass, chronic diarrhea, DVT in right leg , and TIA who presents with hypoglycemia, hypokalemia, hypomagnesemia. Plan: Patient is currently A&Ox3, stable, and protecting her airway so there is no need for ICU at this time. Please reconsult as needed. Recommend endocrinology consult (Dr. Robledo) and continue replacing/monitoring potassium until within normal limits. Continue PO options for raising blood glucose with D50 as needed. <Esteban Higgins - Last Filed: 12/13/17 04:36> Meds - Medications Medications: Current Medications Dextrose (Dextrose 10% In Water) 500 mls @ 80 mls/hr IV .[id number] [facility] Last Admin: 12/13/17 02:34 Dose: 80 mls/hr Results - Vital Signs Recent Vital Signs: Last Vital Signs Temp 97.5 F L 12/13/17 03:19 Pulse 71 12/13/17 03:19 Resp 16 12/13/17 03:19 BP 135/62 12/13/17 03:19 Pulse Ox 99 12/13/17 03:19 - Labs Result Diagrams: 12/12/17 20:33 12/12/17 20:33 Labs: Laboratory Results - last 24 hr 12/13/17 12/13/17 02:09 02:55 POC Glucose (mg/dL) 41 L 143 H Attending/Attestation - Attestation I have personally seen and examined this patient.: Yes I have fully participated in the care of the patient.: Yes I have reviewed all pertinent clinical information: Yes Notes (Text): 12/13/17 04:35 Agree with consultation note. Patient was seen when she was in be d# 9 in the ER.
[2017-12-13] MEDS: Potassium Chloride 20 mEq ER Tab PO SCH ×2 (00:27→03:57)
--- NOTE | 2017-12-13 01:29 | ED PDOC ---
Arrival/HPI - General Chief Complaint: Hip Pain Time Seen by Provider: 12/12/17 18:25 Historian: Patient, Family - History of Present Illness Narrative History of Present Illness (Text): 12/13/17 01:26 67-year-old female with a history of dementia presents today brought in by her daughter for frequent falls. Patient's daughter states that the patient fell twice yesterday. Patient is complaining of left hip pain. Patient denies numbness or tingling in the lower extremities. Patient denies chest pain or shortness of breath. Patient states she doesn't remember falling. She denies abdominal pain. No nausea or vomiting. Patient's daughter states that the patient has been acting strange since last night. She states that the patient is having intermittent slurred speech and states that the patient was "out of it " last night. Patient's daughter states she gave Tylenol for pain. Patient complaining of a slight headache. Denies fevers at home. Patient's daughter states the patient ate an Spanish muffin today and states that she was laying in bed all day. No other complaints Past Medical History - Provider Review Nursing Documentation Reviewed: Yes - Travel History Have you recently traveled outside [place] w/in the past 3 mons?: No - Past History Past History: No Previous - Infectious Disease Hx of Infectious Diseases: None - Tetanus Immunization Tetanus Immunization: Unknown - Past Medical History Past Medical History: No Previous - Cardiac Hx Cardiac Disorders: Yes Hx Congestive Heart Failure: Yes Hx Hypertension: Yes Hx Peripheral Edema: Yes - Pulmonary Hx Respiratory Disorders: Yes Hx Asthma: Yes - Neurological Hx Neurological Disorder: Yes Hx Alzheimer's Disease: Yes Hx Dementia: Yes - HEENT Hx HEENT Disorder: Yes Other/Comment: glasses - Renal Hx Renal Disorder: No - Endocrine/Metabolic Hx Endocrine Disorders: Yes Hx Diabetes Mellitus Type 2: Yes - Hematological/Oncological Hx Blood Disorders: Yes Hx Anemia: Yes - Integumentary Hx Dermatological Disorder: No - Musculoskeletal/Rheumatological Hx Musculoskeletal Disorders: Yes Hx Arthritis: Yes Hx Falls: Yes Hx Unsteady Gait: Yes - Gastrointestinal Hx Gastrointestinal Disorders: Yes Hx Gastroesophageal Reflux: Yes - Genitourinary/Gynecological Hx Genitourinary Disorders: Yes Hx Urinary Tract Infection: Yes - Psychiatric Hx Psychophysiologic Disorder: Yes Hx Anxiety: Yes Hx Depression: Yes Hx Substance Use: No - Past Surgical History Past Surgical History: No Previous - Surgical History Hx Cardiac Catheterization: Yes Hx Coronary Stent: Yes Hx Gastric Bypass Surgery: Yes Other/Comment: hammertoes both feet - Anesthesia Hx Anesthesia: Yes Hx Anesthesia Reactions: No Hx Malignant Hyperthermia: No - Suicidal Assessment Feels Threatened In Home Enviroment: No Family/Social History - Physician Review Nursing Documentation Reviewed: Yes Family/Social History: Unknown Family HX Smoking Status: Former Smoker Hx Alcohol Use: No Hx Substance Use: No Hx Substance Use Treatment: No Allergies/Home Meds Allergies/Adverse Reactions: Allergies gluten Allergy (Verified 12/12/17 17:55) DIARRHEA Review of Systems - Review of Systems Constitutional: Fatigue. absent: Fevers Respiratory: absent: SOB, Cough Cardiovascular: absent: Chest Pain, Palpitations Gastrointestinal: absent: Abdominal Pain, Nausea, Vomiting Genitourinary Female: absent: Dysuria, Frequency, Hematuria Musculoskeletal: Arthralgias (left hip pain), Back Pain. absent: Neck Pain Skin: absent: Rash, Pruritis Neurological: Headache. absent: Dizziness Physical Exam Vital Signs Reviewed: Yes Vital Signs Temp Pulse Resp BP Pulse Ox 12/12/17 22:07 97.6 F 65 16 141/81 96 12/12/17 17:58 97.4 F L 70 16 118/76 Temperature: Afebrile Blood Pressure: Normal Pulse: Regular Respiratory Rate: Normal Appearance: Positive for: Well-Appearing, Non-Toxic, Comfortable Pain Distress: None Mental Status: Positive for: Alert and Oriented X 3 Finger Stick Blood Glucose: 58 - Systems Exam Head: Present: Atraumatic Mouth: Present: Moist Mucous Membranes Neck: Present: Normal Range of Motion Respiratory/Chest: Present: Clear to Auscultation, Good Air Exchange. No: Respiratory Distress, Accessory Muscle Use Cardiovascular: Present: Regular Rate and Rhythm, Normal S1, S2. No: Murmurs Abdomen: No: Tenderness, Distention, Rebound, Guarding Back: Present: Normal Inspection, Paraspinal Tenderness (+ minimal left lower lumbar paraspinal tenderness). No: CVA Tenderness, Midline Tenderness Upper Extremity: Present: Normal Inspection, Normal ROM Lower Extremity: Present: Normal Inspection, Normal ROM, Tenderness (pelvis stable; left hip; + ttp along the posterior aspect of the hip; no edema, no erythema; full rom of hip. ) Neurological: Present: GCS=15, Speech Normal, Motor Func Grossly Intact, Normal Sensory Function Skin: Present: Warm, Dry, Normal Color. No: Rashes Psychiatric: Present: Alert, Oriented x 3 Medical Decision Making ED Course and Treatment: 67-year-old female presents to the emergency room after frequent falls at home. Patient was a alert and oriented with stable vital signs. pt was seen and evaluated by dr. gudino. While in the emergency room the patient started to slur her speech and became lethargic. Fingerstick showed sugar was less than 29 patient was given an amp of D50 and patient again was alert and oriented in no distress. Shortly after the patient was found lethargic again slow to speak repeat fingerstick was 58. Patient was given another amp of D50 and started on a D5 1/2NS at 80mls/hr. cbc: wnl cmp; k; 2.7 glucose; 66 ca; 6.9 vbg; ph; 7.18 lactate; wnl trop; wnl ekg; normal sinus rhythm at 62 bpm normal axis no ST elevations cxr; wnl ABG: ph; 7.34 CAT scan of the head:COMPARISON: CT - HEAD W/O CONTRAST 2017-09-18 08:12 FINDINGS: Brain: There is mild diffuse cerebral atrophy present, consistent with this patient's age. Areas of decreased attenuation noted within the periventricular and subcortical white matter likely related to chronic microangiopathic ischemic changes given the patient's stated age. No evidence of acute hemorrhage. Ventricles: Unremarkable. No ventriculomegaly. Bones/joints: Unremarkable. No acute fracture. Soft tissues: Unremarkable. Vasculature: Atherosclerotic calcifications of the carotid siphons. Sinuses: Unremarkable as visualized. No acute sinusitis. Mastoid air cells: Unremarkable as visualized. No mastoid effusion. IMPRESSION: No evidence of acute intracranial hemorrhage. CAT scan of the lumbar spine:FINDINGS: Vertebrae: The lumbar vertebral bodies are normal in height, and without abnormal subluxation or acute fracture. Osteopenia. There is mild angulation of the lumbar spine to the right. The T11 spinous process is hypoplastic or absent. There is hypoplasia of the T12 spinous process. Facet arthropathy is identified from L3-4 through L5-S1. Discs/spinal canal/neural foramina: Minimal narrowing of the thecal sac is visualized at L3-4, with hypertrophy of the ligamentum flavum. There is minimal disc bulging at L4-5, without significant narrowing of the thecal sac. There is no significant narrowing of the thecal sac at the remaining lumbar levels. Advanced degenerative changes are visualized at T11-12, with a decrease of disc height as well as disc bulge/osteophyte complexes. A vacuum disc phenomenon is seen at this level. Mild disc bulge is visualized at T11-12, without significant narrowing of the thecal sac. Right neural foramina is identified at T11-12, L3-4, and L5-S1. Left neural foraminal narrowing is identified at T11- 12, L1-2, L2-3, and L4-5. Other findings: Minimal gas is visualized within the bilateral sacroiliac joints. IMPRESSION: 1. The lumbar vertebral bodies are normal in height, and without abnormal subluxation or acute fracture. 2. Degenerative changes are noted above within the lumbar and lower thoracic spine. Minimal narrowing of the thecal sac is visualized at L3-4. There is minimal disc bulging at L4-5, without significant narrowing of the thecal sac. Advanced degenerative changes are visualized at T11-12. 3. Neural foramina is identified at multiple lumbar levels, as well as the T11- 12 level, as described above. This can be further evaluated with a nonemergent MRI. 4. Additional CT findings described above. CAT scan of the left hip:FINDINGS: Bones/joints: There is no acute fracture or dislocation of the left hip. There is spurring of the superior left acetabulum. There is acetabular overcoverage of the femoral head, and pincer-type femoroacetabular impingement is considered. There is narrowing of the left hip joint space superiorly, consistent with arthropathy. There is subcapital spurring of the left femoral head. There is cortical irregularity of the left femoral neck. There is degenerative spurring of the left greater trochanter. Soft tissues: There is mild soft tissue swelling lateral to the left hip. CT suboptimal for evaluation of ligaments, tendons, and labrum. IMPRESSION: 1. There is no acute fracture or dislocation of the left hip. 2. Degenerative change/arthropathy is noted above involving the left hip. 3. There is spurring of the superior left acetabulum. There is acetabular overcoverage of the femoral head, and pincer-type femoroacetabular impingement is considered. This can be further evaluated with nonemergent MRI arthrography. 4. There is mild soft tissue swelling lateral to the left hip. pt reassessment; pt alert, oriented; no distress feeling much better; case discussed with dr. olvera in depth; accepts admission pt was evaluated by the retarder operator Dr. Higgins; patient does not meet criteria for ICU admission. Impression: Persistent hypoglycemia, hypokalemia, altered mental status, left hip pain, low back pain, frequent falls admit to tele Reassessment Condition: Re-examined, Improved - Lab Interpretations Lab Results: 12/12/17 20:33 12/12/17 20:33 Lab Results 12/12/17 22:53: pCO2 43, pO2 83.0, HCO3 23.2, ABG pH 7.34 L, ABG Total CO2 24.5 , ABG O2 Saturation 98.6 H, ABG O2 Content 15.3, ABG Base Excess -2.6 L, ABG Hemoglobin 11.3 L, ABG Carboxyhemoglobin 2.0 H, POC ABG HHb (Measured) 1.4, ABG Methemoglobin 1.0, ABG O2 Capacity 15.5 L, Hgb O2 Saturation 95.7, FiO2 21.0 12/12/17 21:35: POC Glucose (mg/dL) 29 L* 12/12/17 20:33: Magnesium 1.4 L 12/12/17 20:33: Digoxin 0.5 L 12/12/17 20:33: pO2 39, VBG pH 7.18 L*, VBG pCO2 48.0, VBG HCO3 17.9 L, VBG Total CO2 19.4 L, VBG O2 Sat (Calc) 75.1 H, VBG Base Excess -10.4 L, VBG Potassium 2.1 L*, Sodium 145.0, Chloride 123.0 H, Glucose 57 L, Lactate 0.8, FiO2 21.0, Venous Blood Potassium 2.1 L* 12/12/17 20:33: WBC 4.0 L, RBC 3.40 L, Hgb 10.4 L D, Hct 31.1 L, MCV 91.5, MCH 30.6, MCHC 33.4, RDW 14.1, Plt Count 121, MPV 8.9, Gran % 66.4, Lymph % (Auto) 27.5, Perkins % (Auto) 5.4, Eos % (Auto) 0.5 L, Baso % (Auto) 0.2, Gran # 2.68, Lymph # (Auto) 1.1 L, Perkins # (Auto) 0.2, Eos # (Auto) 0.0, Baso # (Auto) 0.01 12/12/17 20:33: Sodium 146, Chloride 115 H, Potassium 2.7 L* D, Carbon Dioxide 22, Anion Gap 11, BUN 16, Creatinine 0.8, Est GFR ( Amer) > 60, Est GFR ( Non-Af Amer) > 60, Random Glucose 66 L, Calcium 6.9 L*, Total Bilirubin 0.2, AST 22, ALT 36, Alkaline Phosphatase 49, Lactate Dehydrogenase 298 L, Total Creatine Kinase 78, Troponin I < 0.01, NT-Pro-B Natriuret Pep 112, Total Protein 5.0 L, Albumin 2.3 L, Globulin 2.6, Albumin/Globulin Ratio 0.9 L - RAD Interpretation Radiology Orders: 12/12/17 18:52 HEAD W/O CONTRAST [CT] Stat HIP WITHOUT CONTRAST LEFT [CT] Stat LUMBAR SPINE W/O CONTRAST [CT] Stat PELVIS ONE VIEW [RAD] Stat 12/12/17 18:54 CHEST PORTABLE [RAD] Stat - Medication Orders Current Medication Orders: Potassium Chloride (Potassium Chloride 10 Meq/100 Ml) 10 meq in 100 mls @ 50 mls/hr IVPB Q2H [facility] Stop: 12/13/17 01:59 Last Admin: 12/13/17 00:30 Dose: Not Given Non-Admin Reason: Patient Refused Dextrose/Sodium Chloride (Dextrose 5%/0.45% Ns 1000 Ml) 1,000 mls @ 80 mls/hr IV .[id number] [facility] Last Admin: 12/12/17 23:00 Dose: 80 mls/hr eMAR Start Stop Document 12/12/17 23:00 OCS (Rec: 12/12/17 23:00 OCS [id number]) Intravenous Solution Start Date 12/12/17 Start Time 23:00 Potassium Chloride (K-Dur 20 Meq Er Tab) 40 meq PO Q2H JOANNE Stop: 12/13/17 02:16 Last Admin: 12/13/17 00:27 Dose: 40 meq Discontinued Medications Calcium Gluconate (Calcium Gluconate Iv) 1,000 mg IVP ONCE ONE Stop: 12/12/17 21:53 Last Admin: 12/12/17 23:12 Dose: 1,000 mg IVP Administration Document 12/12/17 23:12 OCS (Rec: 12/12/17 23:12 OCS [id number]) Charges for Administration # of IVP Administrations 1 Dextrose (Dextrose 50% Inj) 50 ml IVP STAT STA Stop: 12/12/17 21:29 Last Admin: 12/12/17 21:39 Dose: 50 ml IVP Administration Document 12/12/17 21:39 OCS (Rec: 12/12/17 21:39 OCS [id number]) Charges for Administration # of IVP Administrations 1 Dextrose (Dextrose 50% Inj) 50 ml IVP STAT STA Stop: 12/12/17 22:15 Last Admin: 12/12/17 22:30 Dose: 50 ml IVP Administration Document 12/12/17 22:30 OCS (Rec: 12/12/17 23:03 OCS [id number]) Charges for Administration # of IVP Administrations 1 Sodium Chloride (Sodium Chloride 0.9%) 500 mls @ 999 mls/hr IV .Q31M STA Stop: 12/12/17 20:36 Last Admin: 12/12/17 20:13 Dose: 999 mls/hr eMAR Start Stop Document 12/12/17 20:13 OCS (Rec: 12/12/17 20:14 OCS [id number]) Intravenous Solution Start Date 12/12/17 Start Time 20:13 End Date 12/12/17 End time 20:43 Total Infusion Time 30 Magnesium Sulfate/Dextrose (Magnesium Sulfate 1 Gm/100 Ml D5w) 1 gm in 100 mls @ 100 mls/hr IVPB ONCE ONE Stop: 12/12/17 23:19 Last Admin: 12/12/17 23:02 Dose: 100 mls/hr eMAR Start Stop Document 12/12/17 23:02 OCS (Rec: 12/12/17 23:03 OCS [id number]) Intravenous Solution Start Date 12/12/17 Start Time 23:02 End Date 12/13/17 End time 00:02 Total Infusion Time 60 Potassium Chloride (K-Dur 20 Meq Er Tab) 40 meq PO STAT STA Stop: 12/12/17 21:51 Last Admin: 12/12/17 23:03 Dose: 40 meq Disposition/Present on Arrival - Present on Arrival Any Indicators Present on Arrival: No History of DVT/PE: No History of Uncontrolled Diabetes: No Urinary Catheter: No History of Decub. Ulcer: No History Surgical Site Infection Following: None - Disposition Have Diagnosis and Disposition been Completed?: Yes Diagnosis: Hypokalemia, Altered mental status, Back pain, Hypoglycemia Disposition: HOSPITALIZED Disposition Time: 22:00 Patient Plan: Admission Condition: FAIR Referrals: Fariha Olvera MD [Primary Care Provider] - Follow up with primary
[2017-12-13] MEDS ORDERED: Dextrose 50% SYRINGE Inj (50 ml) IVP STA ×2 (02:12→02:29)
[2017-12-13 04:21] VITALS: BMI 25.0
--- NOTE | 2017-12-13 08:05 | CT ---
PROCEDURE: CT HEAD WITHOUT CONTRAST. HISTORY: headache COMPARISON: Unenhanced head CT 09/18/2017. TECHNIQUE: Axial computed tomography images were obtained through the head/brain without intravenous contrast. Radiation dose: Total exam DLP = 953.52 mGy-cm. This CT exam was performed using one or more of the following dose reduction techniques: Automated exposure control, adjustment of the mA and/or kV according to patient size, and/or use of iterative reconstruction technique. FINDINGS: HEMORRHAGE: No intracranial hemorrhage. BRAIN: Good corticomedullary differentiation is seen. Diffuse expansion of the ventriculosulcal and cisternal spaces is appreciated with white matter lucency compatible with diffuse cerebral atrophy and chronic microangiopathy. No suspicious extra-axial fluid collection is identified and the midline brain anatomy appears grossly nonfocal as imaged. There is no mass effect throughout. VENTRICLES: Unremarkable. No hydrocephalus. CALVARIUM: Unremarkable. PARANASAL SINUSES: Unremarkable as visualized. No significant inflammatory changes. MASTOID AIR CELLS: Unremarkable as visualized. No inflammatory changes. OTHER FINDINGS: None. IMPRESSION: Stable unenhanced head CT without acute interval CT findings. Follow-up CT or MRI are available if clinically warranted.
--- NOTE | 2017-12-13 08:29 | RAD ---
PROCEDURE: Radiographs of the pelvis. HISTORY: fall, left hip pain COMPARISON: Pelvis with right hip 11/28/2017. FINDINGS: BONES: Pylori appears intact although degenerative changes are advanced at the bilateral hip joints once again and moderate at the bilateral sacroiliac joints. Pubic symphysis appears intact. No gross dislocation bilaterally. Advanced degenerative changes seen at the inferior lumbar spine incidentally. Local soft tissues reflect nonspecific calcifications in the lateral inferior pelvic soft tissues bilaterally. JOINTS: As above. OTHER FINDINGS: None. IMPRESSION: No acute fracture or dislocation appreciated throughout the pelvic ring in the interval grossly. Advanced degenerative changes seen the bilateral hip joints and are moderate the bilateral sacroiliac joints.
--- NOTE | 2017-12-13 08:30 | RAD ---
HISTORY: syncope COMPARISON: Chest radiographs 11/15/2017. FINDINGS: LUNGS: No active pulmonary disease. PLEURA: No significant pleural effusion identified, no pneumothorax apparent. CARDIOVASCULAR: Normal. OSSEOUS STRUCTURES: No significant abnormalities. VISUALIZED UPPER ABDOMEN: Normal. OTHER FINDINGS: None. IMPRESSION: No interval acute cardiopulmonary disease appreciated.
--- NOTE | 2017-12-13 12:12 | CARD ---
APPROVED REPORT EKG Measurement Heart [id number] <Conclusion> Normal sinus rhythm Septal infarct, age undetermined NSSTW changes
[2017-12-13] MEDS: Digoxin 125 mcg (0.125 mg) Tab PO SCH (13:26)
--- NOTE | 2017-12-13 15:49 | CP.PCM.PCO ---
Physician Communication Note - Physician Communication Note Physician Communication Note: ams sec to metabolic encephalopathy from persistent hypogycemia.
--- NOTE | 2017-12-13 21:27 | CON ---
DATE: ENDOCRINOLOGY CONSULTATION LOCATION: Room 275. HISTORY OF PRESENT ILLNESS: This is a 67-year-old female admitted with generalized body weakness and progressively worsening dizziness and lightheadedness with associated symptomatic hypoglycemic episodes and is now being referred for endocrine evaluation and management. PAST MEDICAL HISTORY As mentioned above, she had a prior history of type 2 diabetes, previously on metformin therapy which was discontinued over a year ago as noted. She also had gastric bypass surgery 7 years ago with significant weight loss as noted. History of hypertension and dyslipidemia, history of coronary artery disease with the previous coronary angioplasty, history of generalized anxiety and depression on psychotropic medications at this time. She also admits to marked insomnia as noted. Moreover, she also was diagnosed of early dementia, currently on Namenda taken as 5 mg once daily as noted. History of a previous TIA with no residual weakness as noted. She admits to irritable bowel syndrome with alternating diarrhea and constipation as noted. SOCIAL HISTORY: The patient has a supportive family and admits to prior history of smoking, but quit over 20 years ago. FAMILY HISTORY: Positive for hypertension and heart disease. REVIEW OF SYSTEMS: As mentioned above. Admits to generalized body weakness with progressive bouts of dizziness and lightheadedness, worse on the day of admission. Also admits to bifrontal headaches and visual blurring with marked insomnia noted, more prominent in the last few weeks prior to admission. Also, admits to easy fatigability and tiredness with suboptimal energy level. No chest pains, but admits to episodic bouts of palpitations especially with episodes of hypoglycemia as noted. No recent paroxysmal nocturnal dyspnea otherwise. Her oral intake has been variable with nausea, dyspepsia and moderate anorexia with progressive weight loss. Admits to alternating bouts of loose watery diarrhea and constipation. PHYSICAL EXAMINATION: GENERAL: This is an average built female in no apparent distress. VITAL SIGNS: Blood pressure of 140/80, pulse of 70 beats per minute regular, temperature 98, respirations 20. Height is 5 feet 7 inches, weight is 149 pounds. HEENT: Head: Normocephalic. Eyes: Anicteric with pink conjunctivae. Funduscopy is possible at this time. Ears, nose and throat otherwise normal. NECK: Supple. Thyroid gland is normal in size. No carotid bruits or cervical adenopathy. CARDIOPULMONARY: Some adynamic precordium. S1, S2 is rapid and regular. LUNGS: Clear to auscultation. ABDOMEN: Flat, soft with positive bowel sounds. EXTREMITIES: No peripheral edema. Pulses are +2 bilaterally. LABORATORY DATA: Her chemistries showed a glucose level of 29 at bedtime last night and this morning was 41 mg/dL. The latest glucose levels in the morning ranged from 67-77 mg/dL. Her latest chemistries showed a BUN of 60. Sodium 146, potassium 2.7, chloride 115, CO2 22, glucose 66 and creatinine 0.8. LDH is 298. ASSESSMENT: This is a 67-year-old female with symptomatic hypoglycemia and associated neuroglycopenic and hyperadrenergic manifestations related to the same and reversed by D50 bolus injections. She also has significant history of gastric bypass surgery and one of the potential complications post-operatively if the so-called dumping syndrome with so called functional bouts of hypoglycemia and supervening hyperinsulinemia causing more episodes of symptomatic hypoglycemia thereof. She has prior history of type 2 diabetes, currently off oral hypoglycemic therapy for over a year now. She also has significant macrovascular complications of coronary artery disease with the previous coronary angioplasty and a prior cerebrovascular event with transient ischemic attack and no residual weakness. It would be quite remote that we are dealing with a so-called insulin excess syndrome insulin excess syndrome such as insulinoma or paraganglioma causing these episodic bouts of symptomatic hypoglycemia. A comprehensive hormonal profile would be undertaken to exclude the upper mentioned. PLAN OF MANAGEMENT: We will continue the intensive glucose monitoring done every 4 hours as ordered. We will also continue the D10W infusion as given today and we will switch over to D5W once glucose levels are at least above 120 mg/dL. We will obtain a comprehensive hormonal profile to include a serum insulin level with a C-peptide level to assess her endogenous pancreatic reserve and also a hemoglobin A1c to ascertain her prior glycemic profile over the last few months prior to admission. The baseline thyroid stimulating hormone and serum cortisol level will be undertaken to exclude any underlying endocrinopathy. Moreover, we will also obtain a serum gastrin level to exclude any underlying neuroendocrine tumors as noted thereof. We will switch her over also now to a high-protein 6 small frequent feedings for her diet regimen. At this time, I actually wanted to order a low-calorie, low-fat high-protein diet, but it is not in the computer choices as noted. They only have a high calorie, high protein diet as ordered. But for outpatient management, it would be ideal that she gets a low-carb, low-fat high-protein diet with 6 frequent small feedings to counterbalance the dumping syndrome as noted thereof. We will consult the dietitian for inpatient dietary evaluation and counseling regarding her food choices as mentioned thereof. We will obtain serial chemistries and supplement accordingly as needed. We will follow. Isidra Robledo MD
--- NOTE | 2017-12-14 03:51 | CON ---
DATE: HISTORY OF PRESENT ILLNESS: This is a 67-year-old female with past medical history of dementia. The patient has had frequent falls at home, fell twice yesterday, and complaining of left hip pain with numbness and tingling in the lower extremities, and does not remember falling and the patient appears forgetful. PAST MEDICAL HISTORY: Hypertension and dementia on examination. ALLERGIES: TO GLUTEN. REVIEW OF SYSTEMS: A 10-point review of systems was negative. PHYSICAL EXAMINATION: HEENT: Normocephalic and atraumatic. NECK: Supple. NEUROLOGIC: Alert, awake, and oriented to self and place, not time. Cranial nerve II through XII are tested. Pupils reactive. EOM intact. Visual field full. No facial asymmetry. Tongue is midline. Motor examination, moves all the extremities equally. Tone is normal. Deep tendon reflexes 1+. Both plantars are downgoing. Sensory appears intact. Cerebellar, gait normal. IMPRESSION: Dementia and possibly syncope secondary to above. CAT scan of the head was done, which was normal. No bleed and no stroke. Continue present management with Aricept and we will follow up. Reginaldo Card MD
--- NOTE | 2017-12-14 06:14 | HP ---
DATE OF EXAM: 12/13/2017 CHIEF COMPLAINT: Fall, hip pain, altered mental status. HISTORY OF PRESENT ILLNESS: The patient was seen and examined at the bedside on 12/13/2017. Daughter was standing on the bedside also. I am doing a history and physical for 12/13/2017. Ms. Willow Cast is a 67-year-old female with history of dementia, brought to the emergency room by the daughter for frequent falls. Patient's daughter states that the patient fell twice yesterday. Patient is complaining of left hip pain. Patient denies numbness or tingling in the lower extremities. Denies chest pain or shortness of breath. Patient states that she does not remember falling. She denies abdominal pain. No fever. No chills. Daughter states that patient has been acting strange since the last night. She states that the patient is having intermittent slurring of speech. States that the patient was out of it last night. Patient's daughter states that she gave Tylenol for pain. Patient is complaining of slight headache. No fever, no chills. Length of time discussion done with the patient and the patient's daughter. PAST MEDICAL HISTORY: Congestive heart failure, hypertension, asthma, dementia, diabetes mellitus type 2, anemia, arthritis, falls, unsteady gait, anxiety, depression, coronary stents, gastric bypass surgery. FAMILY HISTORY: Patient do not know about her family. SOCIAL HISTORY: Smoking; former smoker. Now no smoking, no drugs, no ethanol. ALLERGIES: PATIENT IS ALLERGIC WITH GLUTEN. REVIEW OF SYSTEMS: The patient is seen and examined on the bedside. Daughter was standing on the bedside also, looking comfortable, complaining about hip pain. No fever. No chills. No nausea, vomiting or diarrhea. No hematuria or hematochezia. No swelling of the leg. No chest pain. No palpitation. PHYSICAL EXAMINATION: VITAL SIGNS: Temperature 97.6, pulse 65, respiratory rate 16, blood pressure 140/81, pulse oximetry 96. HEENT: Head: Normocephalic and atraumatic. Eyes: PERRLA. Extraocular muscles intact. Conjunctivae clear. Nose: Patent. Mucous membrane moist. NECK: Supple. No carotid bruit. No JVD or thyromegaly. CHEST: Bilaterally symmetrical. HEART: S1, S2 positive. LUNGS: Clear to auscultation. ABDOMEN: Soft. Bowel sounds present. No organomegaly. EXTREMITIES: No edema. No cyanosis. NEUROLOGIC: Patient is awake, alert. Moving all four extremities. No focal deficits. LABORATORY DATA: White blood cells 4, hemoglobin 10.4, hematocrit 31.1, platelets 121. Sodium 146, potassium 2.7 BUN 16, creatinine 0.8, glucose is 66. ASSESSMENT AND PLAN: Mr. Willow Cast is a 67-year-old lady with hypokalemia, replaced; hyperchloremia; hypoglycemia; altered mental status as per daughter; back pain. Seen by Dr. Dhaval Card. According to him, altered mental status is secondary to metabolic encephalopathy from persistent hypoglycemia. CAT scan of the head done, showed stable unchanged head CT without acute interval CT findings. Did a CT of the hip. There is no acute fracture or dislocation of the left hip. Degenerative changes . There is spurring of the superior left acetabulum. There is acetabular over-coverage of the femoral head and pincer-type femoroacetabular impingement is considered. There is mild soft tissue swelling of the left hip. We will call Orthopedic consult with Dr. Reich. Lumbar spine CT done also. The lumbar vertebral bodies are normal in height and without abnormal subluxation or acute fracture. Degenerative changes are noted. Between 3 and 4, there is a minimal disc bulging. Neural foramen is identified at multiple lumbar levels as well as the T11-T12. We will give her physical therapy. History of hypoglycemia. Dr. Isidra Robledo's consult was called. Appreciated her input. Patient has a history of depression, coronary artery disease, status post percutaneous coronary intervention, gastric bypass, chronic diarrhea, also her potassium is always low, deep vein thrombosis in the right leg, and transient ischemic attack. Discussion done with the daughter. Gastrointestinal and deep vein thrombosis prophylaxis. Repeat labs. We will follow up. Fariha Olvera MD MTDHaris
[2017-12-14 07:10] LABS: ALB/GLOB RATIO 1.3 (1.1-1.8); ALBUMIN 4.9 g/dL (3.0-4.8); CALCIUM 9.9 mg/dL (8.4-10.5)
[2017-12-14] MEDS: Digoxin 125 mcg (0.125 mg) Tab PO SCH (13:52)
--- NOTE | 2017-12-14 14:47 | RAD ---
PROCEDURE: Bilateral Knee Radiographs. HISTORY: pain COMPARISON: None. FINDINGS: BONES: Right Knee: Normal. No fracture. Left Knee: Normal. No fracture. JOINTS: Right Knee: Normal. No osteoarthritis. Left knee: Normal. No osteoarthritis. SOFT TISSUES: Right Knee: Normal. Left Knee: Normal. JOINT EFFUSION: Right Knee: None. Left Knee: None. OTHER FINDINGS: None. IMPRESSION: Normal radiographs of the knees.
--- NOTE | 2017-12-14 14:48 | RAD ---
PROCEDURE: Radiographs of the pelvis and bilateral hips HISTORY: pain COMPARISON: None. FINDINGS: BONES: Pelvis: Unremarkable. Right hip:Unremarkable. Left hip:Unremarkable. JOINTS: Right hip: Unremarkable. Left hip: Unremarkable. Sacroiliac Joints: Unremarkable. Pubic symphysis: Unremarkable. SOFT TISSUES: Normal. OTHER FINDINGS: None. IMPRESSION: Unremarkable radiographs of the hips and pelvis.
--- NOTE | 2017-12-14 14:49 | RAD ---
PROCEDURE: Lumbar spine AP only HISTORY: pain COMPARISON: TECHNIQUE: AP only as requested FINDINGS: There is normal alignment. No significant disc degeneration. IMPRESSION: Negative study
--- NOTE | 2017-12-14 15:45 | US ---
PROCEDURE: Right upper extremity venous US CLINICAL HISTORY: Arm pain and swelling Evaluate for deep venous thrombosis. PHYSICIAN(S): Reno Ennis M.D FINDINGS: The right internal jugular vein appears to be chronically occluded with collaterals The visualized segments of the right subclavian vein are patent with normal waveforms. No sonographic evidence of obstruction or thrombosis is seen. The visualized deep venous system of the proximal right upper extremity is sonographically normal and compressible. IMPRESSION: 1. No sonographic evidence for deep venous thrombosis in the visualized segments of the right upper extremity. 2. Atretic/chronically occluded right internal jugular.
--- NOTE | 2017-12-14 23:41 | CON ---
DATE: LOCATION: In room 275, bed 1. HISTORY OF PRESENT ILLNESS: Patient complained of both lower extremities with achiness to both hips and good circulation is good no pitting edema of lower legs. She has been stumbling at home. I am going to order x-rays of the hips and the low back as she did have an injury to her low back years ago, and ordered physical therapy for strengthening exercise, and has to ambulate with a walker and feels that she has weakness of her lower extremities from probably disuse and inability to exercise .. FINAL DIAGNOSIS: Lower extremity weakness. No evidence of fractures. She has mild arthritis of both hips, and we will get x-rays of her knees and possible injection with Depo-Medrol if the pain continues and weakness continues despite therapy. Joel Reich DO MTDD
--- NOTE | 2017-12-15 02:58 | CP.PCM.PN ---
Subjective - Date & Time of Evaluation Date of Evaluation: 12/15/17 Time of Evaluation: 02:54 - Subjective Subjective: Patient is agitated. Getting out of room, trying to get out of hospital, walked upto staircase. Not willing to talk. States that she wants to go home. Medical record was reviewed. This 67 year old woman was admitted with hypoglycemia. Has PMH of CHF, asthma, CAD, CABG, HTN, DM II , anemia, dementia,anxiety, depression. Objective - Vital Signs/Intake and Output Vital Signs (last 24 hours): Temp Pulse Resp BP Pulse Ox 97.5 F L 96 H 20 128/74 95 12/14/17 18:00 12/15/17 02:00 12/14/17 18:00 12/14/17 18:00 12/14/17 00:01 - Medications Medications: Current Medications Atorvastatin Calcium (Lipitor) 80 mg PO DIN [facility] Last Admin: 12/14/17 17:43 Dose: 80 mg Bupropion HCl (Wellbutrin) 75 mg PO BID [facility] Last Admin: 12/14/17 17:43 Dose: 75 mg Clopidogrel Bisulfate (Plavix) 75 mg PO DAILY [facility] Last Admin: 12/14/17 09:17 Dose: 75 mg Digoxin (Digoxin) 0.125 mg PO 1400 [facility] Last Admin: 12/14/17 13:52 Dose: 0.125 mg Dextrose (Dextrose 10% In Water) 500 mls @ 80 mls/hr IV .Q6H15M [facility] Last Admin: 12/14/17 16:12 Dose: Not Given Lorazepam (Ativan) 0.5 mg IVP ONCE ONE PRN Reason: Protocol Stop: 12/15/17 02:53 Memantine (Namenda) 5 mg PO DAILY [facility] Last Admin: 12/14/17 09:17 Dose: 5 mg Propranolol HCl (Inderal) 40 mg PO DAILY [facility] Last Admin: 12/14/17 09:18 Dose: 40 mg Quetiapine Fumarate (Seroquel) 100 mg PO DAILY [facility] PRN Reason: Protocol Last Admin: 12/14/17 09:17 Dose: 100 mg Tramadol HCl (Ultram) 50 mg PO BID PRN PRN Reason: Pain, moderate (4-7) Zaleplon (Sonata) 5 mg PO HS [facility] Last Admin: 12/14/17 22:54 Dose: 5 mg - Labs Labs: 12/14/17 06:30 Most Recent Lab Values WBC 4.0 10^3/ul (4.5-11.0) L 12/12/17 20: RBC 3.40 10^6/uL (3.5-6.1) L 12/12/17 20:33 Hgb 10.4 g/dL (12.0-16.0) L D 12/12/17 20:33 Hct 31.1 % (36.0-48.0) L 12/12/17 20: MCV 91.5 fl (80.0-105.0) 12/12/17 20: MCH 30.6 pg (25.0-35.0) 12/12/17 20: MCHC 33.4 g/dl (31.0-37.0) 12/12/17 20: RDW 14.1 % (11.5-14.5) 12/12/17: Plt Count 121 10^3/uL (120.0-450.0) 12/12/17 20: MPV 8.9 fl (7.0-11.0) 12/12/17 20: Gran % 66.4 % (50.0-68.0) 12/12/17 20: Lymph % (Auto) 27.5 % (22.0-35.0) 12/12/17 20: Scott % (Auto) 5.4 % (1.0-6.0) 12/12/17 20: Eos % (Auto) 0.5 % (1.5-5.0) L 12/12/17 20: Baso % (Auto) 0.2 % (0.0-3.0) 12/12/17: Gran # 2.68 (1.4-6.5) 12/12/17 20: Lymph # (Auto) 1.1 (1.2-3.4) L 12/12/17 20:33 Scott # (Auto) 0.2 (0.1-0.6) 12/12/17 20: Eos # (Auto) 0.0 (0.0-0.7) 12/12/17 20: Baso # (Auto) 0.01 K/mm3 (0.0-2.0) 12/12/17 20:33 pCO2 43 mm/Hg (35-45) 12/12/17 22:53 pO2 83.0 mm/Hg (80-100) 12/12/17 22:53 HCO3 23.2 mmol/L (21-28) 12/12/17 22:53 ABG pH 7.34 (7.35-7.45) L 12/12/17 22:53 ABG Total CO2 24.5 mmol.L (22-28) 12/12/17 22:53 ABG O2 Saturation 98.6 % (95-98) H 12/12/17:53 ABG O2 Content 15.3 ML/dl (15-23) 12/12/17:53 ABG Base Excess -2.6 mmol/L (-2.0-3.0) L 12/12/17:53 ABG Hemoglobin 11.3 g/dL (11.7-17.4) L 12/12/17:53 ABG Carboxyhemoglobin 2.0 % (0.5-1.5) H 12/12/17:53 POC ABG HHb (Measured) 1.4 % (0-5) 12/12/17:53 ABG Methemoglobin 1.0 % (0.0-3.0) 12/12/17:53 ABG O2 Capacity 15.5 mL/dl (16-24) L 12/12/17 22:53 VBG pH 7.18 (7.32-7.43) L* 12/12/17 20:33 VBG pCO2 48.0 (40-60) 12/12/17 20:33 VBG HCO3 17.9 mmol/l (21-28) L 12/12/17 20:33 VBG Total CO2 19.4 mmol.L (22-28) L 12/12/17 20:33 VBG O2 Sat (Calc) 75.1 % (40-65) H 12/12/17 20:33 VBG Base Excess -10.4 mmol/L (0.0-2.0) L 12/12/17: VBG Potassium 2.1 mmol/L (3.6-5.2) L* 12/12/17 20:33 Hgb O2 Saturation 95.7 % (95.0-98.0) 12/12/17 22:53 Sodium 145.0 mmol/L (132-148) 12/12/17 20:33 Chloride 123.0 mmol/L (98-107) H 12/12/17 20:33 Glucose 57 mg/dl (65-105) L 12/12/17 20:33 Lactate 0.8 mmol/L (0.7-2.1) 12/12/17 20:33 FiO2 21.0 % 12/12/17 22:53 Sodium 144 mmol/L (132-148) 12/14/17 06:30 Potassium 4.7 mmol/L (3.6-5.0) 12/14/17 06:30 Chloride 104 mmol/L (98-107) 12/14/17 06:30 Carbon Dioxide 26 mmol/L (21-33) 12/14/17 06:30 Anion Gap 19 (10-20) 12/14/17 06:30 BUN 19 mg/dL (7-21) 12/14/17 06:30 Creatinine 1.1 mg/dl (0.7-1.2) 12/14/17 06:30 Est GFR ( Amer) 60 12/14/17 06:30 Est GFR (Non-Af Amer) 50 12/14/17 06:30 POC Glucose (mg/dL) 105 mg/dL (65-110) 12/14/17 15:35 Random Glucose 118 mg/dL (70-110) H 12/14/17 06:30 Calcium 9.9 mg/dL (8.4-10.5) 12/14/17 06:30 Magnesium 1.4 mg/dL (1.7-2.2) L 12/12/17 20:33 Total Bilirubin 0.3 mg/dL (0.2-1.3) 12/14/17 06:30 AST 36 U/L (14-36) D 12/14/17 06:30 ALT 46 U/L (7-56) 12/14/17 06:30 Alkaline Phosphatase 90 U/L (38-126) 12/14/17 06:30 Lactate Dehydrogenase 298 U/L (333-699) L 12/12/17 20:33 Total Creatine Kinase 78 U/L (35-230) 12/12/17 20:33 Troponin I < 0.01 ng/mL 12/12/17 20:33 NT-Pro-B Natriuret Pep 112 pg/mL (0-450) 12/12/17 20:33 Total Protein 8.7 g/dL (5.8-8.3) H 12/14/17 06:30 Albumin 4.9 g/dL (3.0-4.8) H 12/14/17 06:30 Globulin 3.8 gm/dL 12/14/17 06:30 Albumin/Globulin Ratio 1.3 (1.1-1.8) 12/14/17 06:30 TSH 3rd Generation 1.85 mIU/mL (0.46-4.68) 12/14/17 06:30 Cortisol AM Sample 14.0 ug/dL (4.46-22.7) 12/14/17 06:30 Venous Blood Potassium 2.1 mmol/L (3.6-5.2) L* 12/12/17 20:33 Digoxin 0.5 ng/mL (0.8-2.0) L 12/12/17 20:33 Last FSBS was 49 mg %. About 30 minutes ago after which orange juices etc was given. Not allowing FSBS now. - Constitutional Appears: Other (Agitatied.) - Head Exam Head Exam: ATRAUMATIC, NORMAL INSPECTION, NORMOCEPHALIC - Eye Exam Eye Exam: Normal appearance - ENT Exam ENT Exam: Normal External Ear Exam - Neck Exam Neck Exam: Normal Inspection - Respiratory Exam Respiratory Exam: NORMAL BREATHING PATTERN - Cardiovascular Exam Cardiovascular Exam: absent: JVD - GI/Abdominal Exam GI & Abdominal Exam: absent: Distended - Rectal Exam Rectal Exam: Deferred - Exam Additional comments: Deferred. - Extremities Exam Extremities Exam: Normal Inspection - Back Exam Back Exam: NORMAL INSPECTION - Neurological Exam Neurological Exam: Altered - Psychiatric Exam Psychiatric exam: Agitated - Skin Skin Exam: Normal Color Assessment and Plan - Assessment and Plan (Free Text) Assessment: Agitation. Hypoglycemia. Dementia. DM II. HTN. Asthma. Anemia. Plan: Ativan 0.5 mg IV was ordered , she would not allow us to give her. Will give Geodon 10 mg IM x1.
--- NOTE | 2017-12-15 08:19 | PN ---
DATE: 12/14/2017 SUBJECTIVE: This is a 67-year-old female with symptomatic hypoglycemia and associated neuroglycopenic and hyperadrenergic manifestations related to the same with ongoing D10W infusion as given today. Her glucose levels have been extremely low and have ranged from 34 to 52 and 58 mg/dL. Her serum cortisol is 14 with a TSH of 1.85. Her chemistry showed a BUN of 19, sodium 144, potassium 4.7, chloride 104, CO2 26, glucose 118 and creatinine 1.1. ASSESSMENT: This is a 67-year-old female with symptomatic hypoglycemia and associated neuroglycopenic and hyperadrenergic manifestations of the same most likely related to the so-called dumping syndrome causing these so called functional hypoglycemia and supervening compensatory hyperinsulinemia with dramatic decline and drops of her glucose values postprandially as noted. PLAN OF MANAGEMENT: As discussed at length with the patient at bedside. We will continue her D10W infusion, which is treated as temporary measure to alleviate the extremely low glycemic profile as noted, but the most important would be the nutritional or dietary factor to prevent further and future hypoglycemic episodes thereof. We will continue the D10W infusion as ordered and obtain serial chemistries and supplement accordingly as needed. We will also continue the high-protein diet with 6 frequent small feedings and this was explained to the patient lengthily at bedside. We are waiting the dietary evaluation and recommendations for the high-protein diet as ordered. We will follow. Isidra Robledo MD
[2017-12-15 14:19] LABS: C-PEPTIDE 4.68 ng/mL (0.80-3.85)
[2017-12-15] MEDS: Digoxin 125 mcg (0.125 mg) Tab PO SCH (14:55)
--- NOTE | 2017-12-15 16:11 | PN ---
DATE: 12/14/2017 SUBJECTIVE: Patient is a 67-year-old female. The patient was seen and examined at the bedside, is on one-to-one. Looks a little bit anxious and whole day she has been anxious, walking around on the floor, and was getting episodes of altered mental status, sometime hallucinating , sometimes complaining about hip pain, but no fever, no chills. No nausea, vomiting, diarrhea. No hematuria, no hematochezia. No swelling of the leg. No headache, no dizziness. PHYSICAL EXAMINATION: VITAL SIGNS: Temperature 97.8; pulse 55, repeat is 90; blood pressure 133/81, respiratory rate 21, pulse oxygenation of 100%. HEENT: Head: Normocephalic, atraumatic. Eyes: PERRLA. Extraocular muscles intact. Conjunctivae clear. Nose: Patent. Mucous membrane moist. NECK: Supple. No carotid bruit. No JVD or thyromegaly. CHEST: Bilaterally symmetrical. HEART: S1 and S2 positive. LUNGS: Clear to auscultation. ABDOMEN: Soft. Bowel sounds positive. No organomegaly. EXTREMITIES: No edema. No cyanosis. NEUROLOGICAL: Patient is awake and alert, but confused. MEDICATIONS: Dextrose, digoxin, Inderal, Lipitor, Namenda, Plavix, Seroquel, Sonata, tramadol. LABORATORY DATA: White blood cells 4, hemoglobin 10.4, hematocrit 31.1, platelets 121. Glucose 105, 52, 34, 58. Cortisol is within normal limit 14; digoxin 0.5, low. ASSESSMENT AND PLAN: Ms. Willow Cast is a 67-year-old lady with multiple medical problems, came with history of altered mental status, delirium, hallucination, and hypoglycemia; history of hypertension, history of gastric bypass, history of mainly syncope. CAT scan of the head was done, which was normal; no bleeding or stroke. Continue present management with Aricept and per neurologist. Pelvic and hip x-rays were done. According to Dr. Hidalgo, unremarkable radiograph of the hip and pelvis. Extremity ultrasound was done. According to Dr. Reno Ennis, there is no sonographic evidence of deep vein thrombosis in the visualized segment of the right upper extremity. chronically occluded right internal jugular vein. Patient was seen by Dr. Isidra Robledo for hypoglycemia. Now, I called consult with Dr. Card. Actually, they were already on the case and CAT scan of the head was done. I put consult with Dr. Carla Wilkinson. GI and deep venous thrombosis prophylaxis. need hospital social worker for this patient, need really help from them. Fariha Olvera MD MTDD
--- NOTE | 2017-12-15 17:07 | CON ---
HISTORY OF PRESENT ILLNESS: The patient is a 67-year-old female with reported history of dementia. The patient lives with her daughter. The patient has recent psychiatric admission here in [facility] on 11/30. The patient was discharged. This science writer is very familiar with this patient from the previous admission on the psychiatric inpatient unit. The patient was seen today. The patient presented to be alert, but very confused. The patient does not remember where she is. The patient was actively hallucinating, seeing different animals as well as giraffe next to her. Obviously, there is no giraffe next to her. The patient also does not remember this science writer and confabulated that we met yesterday. So far, the patient is not agitated or aggressive. As per history, the patient was acting bizarre and confused over the past week or so. That is why the patient daughter brought the patient for hospitalization. PHYSICAL EXAMINATION: VITAL SIGNS: This science writer reviewed vital signs. Temperature 98.1, pulse 78, blood pressure 118/74, respirations 20, oxygen saturation is 96%. As per notes, the patient was agitated earlier and was medicated with Geodon. Medical team attempted to medicate the patient with Geodon and Ativan, but the patient refused. Based on the information from the computer, the patient did not get 200 mg of Seroquel last night. Most likely, it is related to that fact that the patient was agitated. Labs reviewed. Chemistry reviewed. The patient had episodes of hypoglycemia and at the time of admission, digoxin 0.5. MENTAL STATUS EXAMINATION: As this science writer described above, the patient is confused. No eye contact. The patient confabulates. Mood described "I am fine." Affect was flat. Thought process seems to be disorganized. Thought content: The patient denied visual, auditory, tactile hallucinations, but obviously hallucinating and presented to be confused. Insight and judgment seem to be impaired. Impulses are unpredictable. IMPRESSION: Delirium on dementia. PLAN: Resume evening dose of Seroquel. One-to-one should be continued. This science writer also would recommend Neurology consultation to rule out Lewy body dementia. Meanwhile, Dr. Siu will follow up on this patient over the weekend. We will put orders as needed for agitation and psychotic symptoms. Thank you very much for letting me participate in the care of your patient. Carla Wilkinson MD [facility] # [id number]
--- NOTE | 2017-12-16 02:53 | PN ---
DATE: 12/15/2017 ENDOCRINOLOGY FOLLOWUP NOTE LOCATION: In room 269. SUBJECTIVE: This is a 67-year-old female with symptomatic episodes of hypoglycemia, especially noted postprandially and is now currently receiving D10W infusion as ordered. Her glucose values today have improved and have ranged from 83 to 105 and 117 mg/dL. Her latest chemistries showed a BUN of 19. Sodium 144, potassium 4.7, chloride 104, CO2 of 26. Glucose 118. Creatinine 1.1. Her serum insulin and C-peptide levels are pending at this time. ASSESSMENT: This is a 67-year-old female with symptomatic hypoglycemia and associated neuroglycopenic and hyperadrenergic manifestations related to the same, currently receiving D50 bolus injections and also an ongoing D10W infusion as given. The most likely etiology would be actually the so-called functional hypoglycemia related to a dumping syndrome postprandially from compensatory hyperinsulinemia with a prior surgical procedure of a gastric bypass done 7 years ago. It would be quite unlikely if we are dealing with a neuroendocrine tumor or an insulin excess syndrome, although a basic workup has been sent out thereof. PLAN OF MANAGEMENT: We will continue the high-protein six frequent small feedings for her dietary regimen at this time to prevent further dips of the glycemic profile. We will continue the D10W for now and obtain serial chemistries and supplement accordingly as needed. We are awaiting the results of the C-peptide and serum insulin level as noted. We will follow. Isidra Robledo MD
[2017-12-16 09:19] LABS: IRON 42 ug/dL (45-180)
[2017-12-16 09:29] LABS: % IRON SATURATION 11 % (20-55); TOTAL IRON BINDING CAPACITY 389 ug/dL (265-497)
--- NOTE | 2017-12-16 14:41 | PN ---
DATE: 12/16/2017 LOCATION: In room 572, bed 2. SUBJECTIVE: the x-rayed of her back, her hips and her knees, all showing minimal osteoarthritis compatible with her age of 67. She does have 1 area of focal pain above the hip and the gluteal muscles of the right hip, so I will ask the nurses of therapy to do warm compresses to the right buttock area. She ambulates without a cane independently so therapy does not have to do much with therapy, other than we will try to get her pain better in the simplest way possible. There does not appear to be any surgical need for intervention or surgery, so we will just warm compressed the right buttock area 3 times a day and continue ambulation ad tremaine. CONDITIONS: Polymyositis of the right hip muscle. Joel Reich DO MTDHaris
--- NOTE | 2017-12-16 16:23 | PN ---
DATE: 12/16/2017 ENDOCRINOLOGY FOLLOWUP NOTE LOCATION: In room 572. SUBJECTIVE: This is a 67-year-old female with persistent symptomatic hypoglycemia and received D10W infusion, which has just been discontinued and her metabolic profile improved accordingly. Her glucose levels overnight have ranged from 117 to 164 and 127 mg/dL. Her latest chemistries showed a BUN of 19, sodium 144, potassium 4.7, chloride 104, CO2 26, glucose 118, and creatinine 1.1. Her hemoglobin A1c is 5.7%, which is just consistent with the so called prediabetes. ASSESSMENT: This is a 67-year-old female with recent severe bouts of marked hypoglycemia and associated neuroglycopenic and hyperadrenergic manifestation from the same. 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 Actually, her C-peptide is 4.68 with a serum insulin level of 19.7. PLAN OF MANAGEMENT: We will continue the present medical management and also the modification of her dietary regimen with high-protein diet with fixed frequent small feedings and this was discussed with the patient at bedside to be done even on the outpatient to prevent hypoglycemic episodes thereof. We will follow and advice accordingly. Isidra Robledo MD
[2017-12-16] MEDS: Digoxin 125 mcg (0.125 mg) Tab PO SCH (16:51)
[2017-12-16 18:31] LABS: FOLATE 15.6 ng/mL
--- NOTE | 2017-12-17 00:04 | PN ---
DATE: 12/16/2017 SUBJECTIVE: The patient is a 67-year-old female. The patient was seen and examined at the bedside, looking comfortable. No nausea, vomiting or diarrhea. No hematuria, no hematochezia. No headache, no dizziness. No chest pain or palpitation. No fever. No chills, but getting episodes of confusion, restless and want to run away from the hospital, that is why we are keeping on one-to-one. PHYSICAL EXAMINATION: VITAL SIGNS: Temperature 97.8; pulse 80 , blood pressure 134/76, respiratory rate 20. HEENT: Head: Normocephalic, atraumatic. Eyes: PERRLA. Extraocular muscles intact. Conjunctivae clear. Nose: Patent. Mucous membrane moist. NECK: Supple. No carotid bruit. No JVD or thyromegaly. CHEST: Bilaterally symmetrical. HEART: S1 and S2 positive. LUNGS: Clear to auscultation. ABDOMEN: Soft. Bowel sounds positive. No organomegaly. EXTREMITIES: No edema. No cyanosis. NEUROLOGICAL: Patient is awake and alert, but getting confused. Obeying simple orders. MEDICATIONS: Digoxin, Haldol, Inderal, Namenda, Plavix, Seroquel, tramadol. LABORATORY DATA: White blood cells 4, hemoglobin 10.4, hematocrit 31.1, platelets 121. Glucose 127, iron 42, saturation 11. ASSESSMENT AND PLAN: Ms. Willow Cast is 67-year-old lady with leukopenia, anemia, iron deficiency, has history of fall. X-ray of her back and hip and knees all showing minimal osteoarthritis compatible with her age of 67. She does have one area of focal pain above the hip and the gluteal muscle over the right hip. Dr. Reich ordered warm compresses to the right buttock area. The patient ambulates without cane independently, so therapy does not have to do much with the therapy. The patient does not appear to be a surgical candidate for pain, need warm compression 3 times a day, continue ambulation as per Dr. Reich. Seen by Dr. Carla Wilkinson. The patient has history of depression and anxiety, episode of hypoglycemia because she was not eating. History of gastric bypass surgery in the remote past. History of electrolyte imbalance and we will fix that. History of altered mental status, delusions, hallucinations, related to her psych problem. CAT scan of the head done shows no bleeding. Getting Aricept. The patient looks like medically stable. Main thing is the depression and anxiety related to the psych . Dr. Carla Wilkinson, psychiatrist is on the case covering. Dr. Carla Wilkinson told nurse that we will call a crisis team from [facility] for the patient's evaluation. Medically, the patient is stable to discharge to Psych or home, but the patient is living alone and cannot live alone,does not safe discharge. Meanwhile, continue present treatment,but the patient is medically stable for Psych. Fariha Olvera MD MTDD
--- NOTE | 2017-12-17 00:52 | CON ---
DATE: HISTORY OF PRESENT ILLNESS: Patient is a 67-year-old -[place] female with a history of dementia associated with psychosis. Patient is being followed by Psychiatry on the medical floor due to hallucination, agitation, and disorientation. I reviewed Dr. Wilkinson's note from yesterday and with patient this morning. Patient is generally with this provider, remembers me from our prior encounters. She is more confused and disoriented than usual. She is aware of current location; however, cannot provide correct month, though she is aware of year. She does not know her current circumstances either. Staff notes indicate that she has been difficult on the unit refusing medications . Patient requires one-to-one that she is unpredictable. Patient admits to this provider that she has been hallucinating; however, indicates that this was weeks ago, although she told Dr. Wilkinson this occurred recently. Patient indicates that she tolerates her current medications, but at the same time, has been refusing most of them. She states that she did not sleep and this is likely because she refused Seroquel last night. Right now, her insight and judgment is considered to be poor and she requires continued monitoring. CURRENT MEDICATIONS: Include Seroquel 100 mg daily and 200 mg at bedtime, if not the patient has been refusing Seroquel at night. Wellbutrin 75 mg p.o. b.i.d. Labs and vital signs were reviewed. IMPRESSION: I agree with Dr. Wilkinson. Patient is currently suffering from delirium on top of dementia with likely decompensation secondary to noncompliance as well. RECOMMENDATION: We will start Haldol 2 mg p.o. every 6 p.r.n. for agitation, but patient required this medication earlier this morning. We will continue with Seroquel at 100 mg daily and decrease nighttime dose to 100 mg at bedtime as patient has not been taking this medication at night. We will also discontinue Wellbutrin 75 mg p.o. b.i.d. as this can cause or worsen psychosis in certain individuals, and we will start Prozac 10 mg daily for patient's history of depression. Psychiatry will follow up with her in the a.m., specifically 12/17/2017. Woody Siu MD [facility] # [id number]
[2017-12-17 06:48] LABS: URINE BILIRUBIN NEGATIVE (NEGATIVE); URINE BLOOD NEGATIVE (NEGATIVE); URINE GLUCOSE (UA) NEGATIVE (NEGATIVE); URINE LEUKOCYTE ESTERASE NEGATIVE Leu/uL (NEGATIVE); URINE PROTEIN NEGATIVE mg/dL (<30 mg/dL); URINE UROBILINOGEN 0.2 E.U./dL (<1 E.U./dL)
[2017-12-17 06:54] LABS: URINE APPEARANCE CLEAR (CLEAR); URINE COLOR YELLOW (YELLOW)
[2017-12-17 07:32] LABS: PHENCYCLIDINE, UR NEGATIVE (NEGATIVE)
[2017-12-17 08:09] LABS: BARBITURATES, UR NEGATIVE (NEGATIVE); BENZODIAZEPINES, UR NEGATIVE (NEGATIVE); OPIATES, UR NEGATIVE (NEGATIVE)
[2017-12-17 08:33] LABS: HEMOGLOBIN 12.8 g/dL (12.0-16.0); MEAN CELL VOLUME 91.7 fl (80.0-105.0); MEAN CORPUSCULAR HEMOGLOBIN 30.5 pg (25.0-35.0); MEAN CORPUSCULAR HGB CONC 33.2 g/dl (31.0-37.0); MEAN PLATELET VOLUME 9.8 fl (7.0-11.0); RBC 4.2 10^6/uL (3.5-6.1); RED CELL DISTRIBUTION WIDTH 14.2 % (11.5-14.5); WHITE BLOOD COUNT 4.3 10^3/ul (4.5-11.0)
[2017-12-17 08:47] LABS: CALCIUM 9.3 mg/dL (8.4-10.5)
[2017-12-17] MEDS: Iron Complex Polysacch 150mg Cap PO SCH (10:53)
--- NOTE | 2017-12-17 11:34 | PN ---
DATE: 12/17/2017 ENDOCRINOLOGY FOLLOWUP NOTE This is a 67-year-old female presenting with symptomatic hypoglycemia and associated neuroglycopenic and hyperadrenergic manifestations, reversed by D50 bolus injections as given. She was also given D10W infusion as maintenance hydration because of the persistent hypoglycemic episodes as noted thereof. Her oral intake has also improved at this time. As noted, her latest chemistries showed a BUN of 22, sodium 141, potassium 4.3, chloride 106, CO2 22, glucose 86 and creatinine 1.2. It was 75 early this morning as noted and it was 98 at bedtime last night. Her serum insulin level was 19.7 which is a compensatory rise from the significant hypoglycemic episodes as noted. Her C-peptide level is 4.68 as expected. We will continue the dietary modification as given with a high-protein diet with six frequent small feedings to prevent the symptomatic bouts of functional hypoglycemia with the so-called dumping syndrome from the recent gastric bypass surgery. We will obtain serial chemistries and supplement accordingly as needed. We will follow. Isidra Robledo MD
[2017-12-17] MEDS: Digoxin 125 mcg (0.125 mg) Tab PO SCH (15:39)
--- NOTE | 2017-12-18 08:33 | PN ---
DATE: 12/16/2017 SUBJECTIVE: The patient is 67-year-old female. Patient is seen and examined on the bedside. Awake, alert, but confused. Seen by Dr. Carla Wilkinson, psychiatrist. Needs one-to-one. Dr. Wilkinson and Neurology consult called and Seroquel in the evening. Appreciated Dr. Higgins's notes. Patient was wandering around before that, and was trying to skid through the stairs. No fever. No chills. No headaches. No dizziness. Not complaining about anything, but actively hallucinating and delusional. PHYSICAL EXAMINATION: VITAL SIGNS: Temperature 97.8, pulse 84, blood pressure 116/86, respiratory rate 20. HEENT: Head: Normocephalic, atraumatic. Eyes: PERRLA. Extraocular muscles intact. Conjunctivae clear. Nose: Patent. NECK: Supple. No carotid bruit. No JVD or thyromegaly. CHEST: Bilaterally symmetrical. HEART: S1 and S2 positive. LUNGS: Clear to auscultation. ABDOMEN: Soft. Bowel sounds present. No organomegaly. EXTREMITIES: No edema. No cyanosis. NEUROLOGICAL: Patient is awake and alert, but confused. MEDICATIONS: Dextrose, digoxin, Inderal, Lipitor, Namenda, Plavix, Seroquel, Sonata, tramadol, Wellbutrin. LABORATORY DATA: White blood cells 4, hemoglobin 10.4, hematocrit 31.1, platelets 121. Glucose 154, 117, 52, 34. ASSESSMENT AND PLAN: Ms. Willow Cast is a 67-year-old female with leukopenia, anemia, fluctuating levels of glucose, family history of dementia. Resume evening dose of Seroquel. Continue one-to-one as per Dr. Carla Wilkinson. We will request a Neurology consult. Seen by Dr. Higgins for patient's walking around. Patient has history of gastric bypass in the remote past, history of electrolytes, history of diarrhea, but now she is stable medically except the altered mental status, glucose is also getting stabilized, history of hypertension. CAT scan of the head done, reviewed by me. Continue present management. Continue Aricept. Pelvic and hip x-rays appreciated by me. Seen by Dr. Reich for hip pain and Dr. Reginaldo Card is already on the case. Waiting for the input. Repeat labs. Out of bed. Physical therapy. We will follow up. Fariha Olvera MD [facility]
--- NOTE | 2017-12-18 09:39 | CON ---
DATE: 12/17/2017 HISTORY OF PRESENT ILLNESS: The patient is a 67-year-old -[place] female with a history of dementia, associated with psychosis. The patient is being followed by Psychiatry in the medical floor due to confusion, disorientation and hallucinations. I am meeting with the patient over the weekend as well as reviewing staff notes. The patient has been difficult to manage on the medical floor, though I have been apprised that she is medically cleared. To review, the patient has been confused and has requires frequent redirection and reminders about her current circumstances and her continued medical treatment. The patient has to leave and has required Haldol IM p.r.n. due to agitated behavior on Monday. She has a history of hallucinating on the unit, however, did not appear to be hallucinating during both of my encounters with her this weekend. The patient has also been refusing Seroquel intermittently, despite provided by this provider regarding its importance for her functioning. I spoke with the patient at bedside this morning and she is guarded, though she still is friendly during my visit. She is not oriented to current year, however, she is aware of the month, location and circumstances. She continues to deny having hallucinations and delusions were not elicited, however, I cannot safely say that she does not harbor any or will not demonstrate evidence of them in the future on the unit. I reminded the patient the reason for her hospitalization including her confusion and hallucination and strongly recommended she consider Psychiatric Inpatient Unit transfer and the patient is generally agreeable and it does not take much convincing to ask this of her, however, I was informed that she has a power of compliance attorney and we need the signature to be provided for her transfer to the Psychiatric Unit. Her insight and judgement are limited and this is not her baseline. Her labs and vitals were reviewed. Relevant psychiatric medications include Haldol 2 mg p.o. every 6 hours p.r.n, The patient received one dose at midnight tonight, Seroquel 100 mg daily. The patient accepted this morning's dose, Seroquel 100 mg p.o. at bedtime. The patient accepted last night pill. Wellbutrin was discontinued due to its association with psychosis in some individuals. IMPRESSION: Dementia complicated by delirium. RECOMMENDATIONS: We will continue with current treatment and plan. There is no acute indication for change in the patient's regimen as recent notes do not indicate problematic behavior. Indeed, she seems to have calm down during the day today. Psychiatry will continue to follow up with the patient on the medical floor, specifically, Dr. Wilkinson will follow up with patient on 12/18/2017 to monitor her mental status and need for psychiatric admission. Woody Siu MD
[2017-12-18] MEDS: Iron Complex Polysacch 150mg Cap PO SCH (11:03)
--- NOTE | 2017-12-18 13:05 | PN ---
DATE: 12/17/2017 SUBJECTIVE: The patient is a 67-year-old female. The patient was seen and examined at the bedside on 12/17/2017, looking comfortable. No nausea, vomiting, or diarrhea. No hematemesis or hematochezia. Still on one-to-one. No headache. No dizziness. No chest pain. No palpitation. Still having delusions sometime, but when I did the examination, the patient was oriented x3. No fever. No chills. PHYSICAL EXAMINATION: VITAL SIGNS: Temperature 98.4, pulse 74, blood pressure 120/64, respiratory rate 20. HEENT: Head: Normocephalic, atraumatic. Eyes: PERRLA. Extraocular muscles intact. Conjunctivae clear. Nose: Patent. Mucous membrane moist. NECK: Supple. No carotid bruit. No JVD or thyromegaly. CHEST: Bilaterally symmetrical. HEART: S1 and S2 positive. LUNGS: Clear to auscultation. ABDOMEN: Soft. Bowel sounds positive. No organomegaly. EXTREMITIES: No edema. No cyanosis. NEUROLOGIC: The patient is awake and alert. Moving all 4 extremities. No focal deficit. MEDICATIONS: Digoxin, iron, Haldol, Inderal, Namenda, Plavix, Seroquel, and tramadol. LABORATORY DATA: White blood cells 4.3, hemoglobin 12.8, hematocrit 38.5, platelets 147. Sodium 141, potassium 4.3, BUN 22, creatinine 1.2, glucose 86. ASSESSMENT AND PLAN: Ms. Willow Cast is a 67-year-old lady with leukopenia; history of anemia better; history of hypokalemia, but potassium is now within normal limits; history of gastric bypass in the past; as per Dr. Isidra Robledo, dumping syndrome that the patient is having attacks of hypoglycemia, got Dextrose to reverse that; history of degenerative joint disease; osteoarthritis; history of dementia, getting Aricept; history of hypertension; history of congestive heart failure; asthma; depression; coronary artery disease, cardiac stenting. Medically, the patient is stable, clear to go to Psychiatry, awaiting for the psychiatric input, Dr. Wilkinson is on the case. We will continue present treatment. Repeat labs. We will follow up. Fariha Olvera MD [facility]
[2017-12-18] MEDS: Digoxin 125 mcg (0.125 mg) Tab PO SCH (14:44)
[2017-12-18 14:49] VITALS: PULSE 80
[2017-12-18 14:56] VITALS: BP 126/71; PULSE 82; RESP 18; TEMP 97.6; O2SAT 99
--- NOTE | 2017-12-18 18:00 | PN ---
DATE: 12/18/2017 ENDOCRINOLOGY FOLLOWUP NOTE LOCATION: In room 572. SUBJECTIVE: This is a 67-year-old female with recent symptomatic hypoglycemic episodes related to underlying episodic bouts of functional hypoglycemia related to the so-called dumping syndrome happening with each meal intake and supervening associated neuroglycopenic and hyperadrenergic manifestations of symptomatic hypoglycemic episodes thereof. She had a prior gastric bypass surgery, which also can contribute to the episodic agitation and restlessness and symptomatic bouts of hypoglycemia. We will continue the low-dose correction scale using Humalog insulin as given and we will titrate incrementally as indicated to optimize metabolic control. We will obtain serial chemistries and supplement accordingly as needed. We will follow. Isidra Robledo MD
--- NOTE | 2017-12-18 20:25 | PN ---
DATE: 12/18/2017 ENDOCRINOLOGY FOLLOWUP NOTE LOCATION: Room 572. SUBJECTIVE: This is a 67-year-old female with recent admission for symptomatic hypoglycemia and has since then improved clinically and metabolically as noted thereof. Her glucose values today have ranged from 83 to 91 and 102 mg/dL. However, collector, she was still 73 mg/dL. Her serum insulin levels and serum C-peptide levels have been reported as optimal and compensatory for the expected hypoglycemic episodes as noted. Her latest chemistry showed a BUN of 22, sodium 141, potassium 4.3, chloride 106, CO2 22, glucose 86 and creatinine 1.2. ASSESSMENT: The patient has the so-called functional hypoglycemia related to a so-called dumping syndrome from prior gastric bypass surgery with compensatory hyperinsulinemia and supervening episodic bouts of hypoglycemia. No evidence of any neuroendocrine excess syndrome or autoimmune endocrine disorders have been seen at this time with the current hormonal evaluation. PLAN OF MANAGEMENT: We will continue the high-protein 6 frequent small feedings in terms of her dietary modification as ordered. We will continue glucose monitoring with no need for any insulin coverage at this time. We will obtain serial chemistries and supplement accordingly if needed. We will follow up with you. She has been encouraged to continue with the high-protein food selections even upon discharge from the hospital. Isidra Robledo MD
--- NOTE | 2017-12-18 23:10 | PN ---
DATE: SUBJECTIVE: The patient was seen and examined today. The patient appears to be confused, disoriented, the patient confabulates. The patient does not remember this food writer, restless and agitated. The patient's daughter is power of mud analysis well logging operator, is willing to sign her mother into the hospital. Based on report, the patient was having hallucinations was seeing giraffe as well as different animals, was restless. Daughter signed consent for treatment and the patient will be transferred to the psychiatric Inpatient Unit for further evaluation and stabilization. VITAL SIGNS: Seems to be stable. Temperature 97.6, pulse is 82, blood pressure 126/71, respirations 18, oxygen saturation is 99. MEDICATIONS: Reviewed. The patient was on digoxin, Plavix, Haldol 2 mg p.o. every 6 hours p.r.n., last dose was given today. The patient is on Namenda, , Seroquel 100 mg at the morning time and nighttime, as well as tramadol 50 mg twice a day. LABORATORY DATA: Reviewed. WBC cells low. Chemistry within normal limits. Urinalysis negative. Toxicology is negative. Digoxin 0.5 and it was on 12/12/2017. Reports reviewed. MENTAL STATUS EXAMINATION: As this food writer described above, the patient is restless, annoyed and agitated, but there is no physical aggression and poor eye contact. Speech was underproductive. The patient appears to be paranoid. Thought process circumstantial and tangential. The patient is confabulating as well. The patient is hallucinating and disorganized. Insight and judgment severely impaired. Impulses are unpredictable. IMPRESSION: Delirium on dementia with behavioral disturbances and psychosis, rule out major depressive disorder with psychotic symptoms, but it is more on differentiation . PLAN: Continue current management. Seroquel will be increased. The patient's daughter signed consent for treatment. The patient will be transferred to the Psychiatric Inpatient Unit for further evaluation and stabilization. We will see the patient at the morning time and medications will be adjusted. Thank you very much for letting me participate in care of your patient. Should you have any questions give me a call back. Carla Wilkinson MD [facility] # [id number]
== END 2017-12-18 16:54 | DRG 637 ==
LOC: ED 17:52 → ERH 12-13 01:21 → 2RSO 12-13 03:55 → 2RNO 12-14 14:53 → 5RSO 12-16 03:47
PROVIDERS: ADMIT Internal Medicine; ATTEND Internal Medicine
DX: E11.649 Type 2 diabetes mellitus with hypoglycemia without coma (principal); G93.41 Metabolic encephalopathy; F03.91 Unspecified dementia, unspecified severity, with behavioral disturbance; F05 Delirium due to known physiological condition; R29.6 Repeated falls; M33.20 Polymyositis, organ involvement unspecified; K91.1 Postgastric surgery syndromes; E87.6 Hypokalemia; I50.9 Heart failure, unspecified; I11.0 Hypertensive heart disease with heart failure; D50.9 Iron deficiency anemia, unspecified; I25.10 Atherosclerotic heart disease of native coronary artery without angina pectoris; F32.9 Major depressive disorder, single episode, unspecified; F41.1 Generalized anxiety disorder; E83.42 Hypomagnesemia; J45.909 Unspecified asthma, uncomplicated; E78.5 Hyperlipidemia, unspecified; Z91.19 Patient's noncompliance with other medical treatment and regimen; Z86.73 Personal history of transient ischemic attack (TIA), and cerebral infarction without residual deficits; Z98.84 Bariatric surgery status; Z95.5 Presence of coronary angioplasty implant and graft; Z95.1 Presence of aortocoronary bypass graft; Z87.891 Personal history of nicotine dependence

== ENCOUNTER 2017-12-18 16:45 | Inpatient (IN) | payer MEDICARE, OTHER ==
[2017-12-18] MEDS ORDERED: Magnesium Hydroxide Susp 30 ml UD PO PRN (17:01)
[2017-12-18] MEDS ORDERED: Alum-Mag Hydrox-Simethicone Susp (30 mL) PO PRN (17:01)
[2017-12-18 17:02] VITALS: O2SAT 96
[2017-12-19] MEDS: Iron Complex Polysacch 150mg Cap PO SCH (08:57)
[2017-12-19] MEDS: Digoxin 125 mcg (0.125 mg) Tab PO SCH (13:27)
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
[2017-12-20 08:29] LABS: IRON 36 ug/dL (45-180)
[2017-12-20 08:47] LABS: % IRON SATURATION 11 % (20-55); TOTAL IRON BINDING CAPACITY 329 ug/dL (265-497)
[2017-12-20] MEDS: Iron Complex Polysacch 150mg Cap PO SCH (09:11)
--- NOTE | 2017-12-20 10:02 | CON ---
DATE: CHIEF COMPLAINT: Depression, anxiety, hallucinations, falls, hip pain, altered mental status. HISTORY OF PRESENT ILLNESS: Ms. Willow Cast is a 67-year-old lady, was admitted on the medical floor for fall, hip pain, altered mental status. Patient is staying with the daughter and due to fall, we admitted the patient on medical floor. I did different testings, but came to know she does not have any fracture. Treatment given. Physical therapy given. Patient did better but was still having hallucinations and delirium and was trying to go home, acting strange. That is why we put her in one-to one, but as soon as her behavior became better, we removed one-to-one. Psych was consulted. Psych accepted the patient, then transferred patient to the Psych. PAST MEDICAL HISTORY: Congestive heart failure, hypertension, asthma, dementia, diabetes mellitus, anemia, arthritis, history of fall, unsteady gait, anxiety, depression, coronary stents, gastric bypass surgery. FAMILY HISTORY: Father and mother noncontributory. SOCIAL HISTORY: Smoking, former history, but now no smoking. No drugs. No ethanol. ALLERGIES: PATIENT IS ALLERGIC WITH GLUTEN. REVIEW OF SYSTEMS: Patient is seen and examined at the bedside, looking comfortable. No nausea, vomiting or diarrhea. No hematuria or hematochezia. No swelling of the leg. No chest pain. No palpitation. No headache. No dizziness. Feeling comfortable. PHYSICAL EXAMINATION: VITAL SIGNS: Temperature 97.9, pulse 66, blood pressure 112/53, respiratory rate 20. HEENT: Head: Normocephalic, atraumatic. Eyes: PERRLA. Extraocular muscles intact. Conjunctivae clear. Nose patent. Mucous membrane moist. NECK: Supple. No carotid bruit. No JVD or thyromegaly. CHEST: Bilaterally symmetrical. HEART: S1 and S2 positive. LUNGS: Clear to auscultation. ABDOMEN: Soft. Bowel sounds present. No organomegaly. EXTREMITIES: No edema. No cyanosis. NEUROLOGIC: Patient is awake, alert. Moving all four extremities. No focal deficits. MEDICATIONS: Ativan, digoxin, Geodon, Inderal, milk of magnesia, Namenda, Plavix, Seroquel, Tylenol. LABORATORY DATA: We do not have labs today, but I reviewed old labs. ASSESSMENT AND PLAN: Ms. Willow Cast is 67-year-old lady. The patient is still hallucinating and delusional; according to her, she is still seeing animals and giraffes in her room. She has disorganized thoughts and behavioral problem, aggression and hallucination, history of congestive heart failure. Patient has history of fall, ataxia. Lumbar spine, hip and pelvis x-ray was done and knee x-rays done, on medical floor. There was no big fracture. History of hypertension,asthma, dementia, diabetes mellitus type 2, anemia, arthritis, coronary stents, history of gastric bypass surgery. Patient under the care of psychiatrist, getting psych medication. We will continue present treatment. We will advise some physical therapy and we will follow up. Fariha Olvera MD [facility]
[2017-12-20 13:14] LABS: FOLATE 10.8 ng/mL
[2017-12-20] MEDS: Digoxin 125 mcg (0.125 mg) Tab PO SCH (13:40)
--- NOTE | 2017-12-20 15:29 | PCM.BM ---
Treatment Plan Problems - Problems identified on initial assessmt ALTERED THOUGHT PROCESS Date Initiated: 12/18/17 Time Initiated: 20:00 Assessment reference: NA Status: Active Priority: 1 FEELING WORTHLESSNESS Date Initiated: 12/18/17 Time Initiated: 20:00 Assessment reference: NA Status: Active Priority: 2 INEFFECTIVE COPING SKILLS Date Initiated: 12/18/17 Time Initiated: 20:00 Assessment reference: NA Status: Active Priority: 3 Treatment assets and liabiliti Patient Assests: adapts well, educated, ADL independent, good support system, negotiates basic needs Patient Liabilities: imparied memory - Milieu Protocol Maintain good personal hygiene: every shift Encourage regular showers, every shift Remind patient to perform daily oral care, every shift Assist patient to perform ADL's Maintain personal safety: daily Educate patient to report safety concerns to staff, daily Monitor environment for contraband/sharps Medication safety: Monitor for expected outcome, potential side effects: daily, Assess barriers to learning: daily, Assess readiness for medication education: daily Milieu Narrative: Milieu/structure/supportive therapy Medical consult will be called genny rouse family involved SW consultation for discharge plan and social issues Med management (specify the name, doses, plan to titrate or wean it off) Family involvement Follow up on labs Will monitor closely Pt was educated about risk/benefits and alternatives of medications, coping strategies (safety plan, suicide prevention), relapse prevention, importance of follow up with psychiatrist and therapist, stay away from drugs/alcohol/smoking Family Contact Family involvement: Family/SO is involved Family contact: Patient agrees to contact Family contact name: Gina Morgan(daughter/POA) Family contacted how many times per week?: 2 Discharge/Continuing Care - Education Needs Education Needs: Family Medication, Family Diagnosis/Disease Process, Family Coping Skills, Family Community resources, Family Activities of Daily Living, Family Nutrition, Family Health Practices/Safety, Family Personal Hygiene/ Grooming, Family Aftercare Safety Plan, Patient Medication, Patient Diagnosis/ Disease Process, Patient Coping Skills, Patient Community resources, Patient Activities of Daily Living, Patient Nutrition, Patient Health Practices/Safety, Patient Personal Hygiene/Grooming, Patient Aftercare Safety Plan - Discharge Discharge Criteria: Tolerates medication w/o severe side effects, Free of paranoid thoughts, Normal sleep pattern, Ability to care for self, Reduction of target symptoms Discharge to:: Home - Treatment Team Participation Patient/Family/SO Statement: Milieu/structure/supportive therapy Medical consult will be called genny increased family involved SW consultation for discharge plan and social issues Med management (specify the name, doses, plan to titrate or wean it off) Family involvement Follow up on labs Will monitor closely Pt was educated about risk/benefits and alternatives of medications, coping strategies (safety plan, suicide prevention), relapse prevention, importance of follow up with psychiatrist and therapist, stay away from drugs/alcohol/smoking
--- NOTE | 2017-12-20 15:42 | PCM.PYCHPN ---
Psychiatric Progress Note - Psychiatric Progress Note Patient seen today, length of contact: 30min Patient Chief Complaint: "I did not realize that I was having hallucinations, let me tell you something, you know what what I am trying to say, I do not deserve to be disrespected by age, people are here you know what I am talking about..." Problems Identified/Issues Discussed: Suicide/ homicide prevention, past psychiatric h/o, current psychiatric symptoms , medical problems, risk/benefits and alternatives of medications, medications compliance, coping strategies, substance abuse h/o, relapse prevention, importance of follow up with psychiatrist and therapist, discharge plan. but it is complicated because of pt's disorganized thoughts, dementia and paranoia. Medical Problems: CHF, hypertension, DVT, asthma, dementia, diabetes, depression, CAD with coronary stent placement Diagnostic Results: Lab Results 12/20/17 08:00: Hemoglobin A1c 5.8 12/20/17 08:00: Iron 36 L, TIBC 329, % Saturation 11 L 12/20/17 08:00: Triglycerides 61, Cholesterol 137, LDL Cholesterol Direct 46, HDL Cholesterol 58, Vitamin B12 318, Folate 10.8 Vital Signs Temp Pulse Resp BP Pulse Ox 12/20/17 09:12 64 99/54 L 12/20/17 06:43 98.3 F 64 19 99/54 L 12/19/17 08:57 68 112/63 12/19/17 06:53 97.9 F 66 20 112/63 12/19/17 06:50 97.9 F 66 20 12/18/17 17:02 97.9 F 85 17 129/66 96 12/18/17 16:58 16 DSM 5 Symptoms Update: Willow Cast is a 67 year old female, with medical history includes CHF, hypertension, DVT, asthma, dementia, diabetes, depression, CAD with coronary stent placement, history of one psychiatric admission "years back", reported history of depression, possible Alzheimer's dementia with behavioral disturbances and hallucinations, initially patient was admitted on the medical side for evaluation of Change in mental status and hallucinations, pt was medically cleared, now pt has POA, her daughter, pt daughter signed consent for tx. Pt was agitated on the medical site, was actively hallucinating, requires further evaluation and stabilization, meds adjustment. pt was seen at the treatment team meeting poor personal hygiene, poor ADLs, pt is irritable, annoyed, difficulties to express herself, pt will start sentence but very hard to complete, thought process is tangential, pt feels frustrated because at times pt realizing that she does not make sense. as per staff pt was irritable, angry, saying that she cannot find her purse and money, had no answer why does she needs money for, pt is paranoid feels that her clothing was stolen it is not true. pt said she could see animals/ giraffes, today pt saw a "bull" on the unit and reflection of the picture on the wall pt thought it was "a bull's blood". pt has impulses unpredictable. so far patient tolerates medications well, no side effects observed or reported , aims 0, no EPS. 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 Medication Change: Yes (wellbutrin, seroquel increased) Medical Record Reviewed: Yes Consults ordered or reviewed: consult appreciated, see notes for more detailed information Mental Status Examination - Cognitive Function Orientation: Person Memory: Impaired (chronic, patient has dementia) Attention: Poor Concentration: Poor Association: Loose Fund of Knowledge: Poor - Mood Mood: Depressed, Anxious - Affect Affect: Constricted (and irritable) - Formal Thought Process Formal Thought Process: Hallucinations, Delusions, Paranoia, Loosening of associations - Suicidal Ideation Suicidal Ideation: No - Homicidal Ideation Homicidal Ideation: No Goal/Treatment Plan - Goal/Treatment Plan Need for Continued Stay: Remain at risks for inpatient hospitalization, Severe depression anxiety, Discharge may exacerbated symptoms, Failed transitioning, Severe functional impairment Progress Toward Problem(s) and Goals/Treatment Plan: Milieu/structure/supportive therapy Medical consult will be called seroquel increased Wellbutrin resumed family involved SW consultation for discharge plan and social issues Med management (specify the name, doses, plan to titrate or wean it off) Family involvement Follow up on labs Will monitor closely Pt was educated about risk/benefits and alternatives of medications, coping strategies (safety plan, suicide prevention), relapse prevention, importance of follow up with psychiatrist and therapist, stay away from drugs/alcohol/smoking Estimated Date of D/C: 12/27/17 - Smoking Cessation Smoking Cessation Initiated: No Reason for not providing: patient denied smoking
[2017-12-21 07:06] LABS: HEMOGLOBIN 12.9 g/dL (12.0-16.0); MEAN CELL VOLUME 90.8 fl (80.0-105.0); MEAN CORPUSCULAR HEMOGLOBIN 30.4 pg (25.0-35.0); MEAN CORPUSCULAR HGB CONC 33.5 g/dl (31.0-37.0); MEAN PLATELET VOLUME 9.2 fl (7.0-11.0); RBC 4.24 10^6/uL (3.5-6.1); RED CELL DISTRIBUTION WIDTH 13.9 % (11.5-14.5); WHITE BLOOD COUNT 3.2 10^3/ul (4.5-11.0)
[2017-12-21 07:21] LABS: CALCIUM 9.4 mg/dL (8.4-10.5)
[2017-12-21] MEDS: Iron Complex Polysacch 150mg Cap PO SCH (08:37)
[2017-12-21] MEDS: Digoxin 125 mcg (0.125 mg) Tab PO SCH (14:51)
--- NOTE | 2017-12-21 15:49 | PCM.PYCHPN ---
Psychiatric Progress Note - Psychiatric Progress Note Patient seen today, length of contact: 30min Patient Chief Complaint: "I don't know why but I need to go downstairs, you need to let me go, no nothing is wrong, I just need to go there, do not ask me where...I want to have private conversation with you because everybody is listening what I am saying, oh you see that jillian is looking at us...." (pt is paranoid, disorganized, confused) Problems Identified/Issues Discussed: Suicide/ homicide prevention, past psychiatric h/o, current psychiatric symptoms , medical problems, risk/benefits and alternatives of medications, medications compliance, coping strategies, substance abuse h/o, relapse prevention, importance of follow up with psychiatrist and therapist, discharge plan. but it is complicated because of pt's disorganized thoughts, dementia and paranoia. Medical Problems: CHF, hypertension, DVT, asthma, dementia, diabetes, depression, CAD with coronary stent placement Diagnostic Results: Lab Results 12/20/17 08:00: Hemoglobin A1c 5.8 12/20/17 08:00: Iron 36 L, TIBC 329, % Saturation 11 L 12/20/17 08:00: Triglycerides 61, Cholesterol 137, LDL Cholesterol Direct 46, HDL Cholesterol 58, Vitamin B12 318, Folate 10.8 Vital Signs Temp Pulse Resp BP Pulse Ox 12/20/17 09:12 64 99/54 L 12/20/17 06:43 98.3 F 64 19 99/54 L 12/19/17 08:57 68 112/63 12/19/17 06:53 97.9 F 66 20 112/63 12/19/17 06:50 97.9 F 66 20 12/18/17 17:02 97.9 F 85 17 129/66 96 12/18/17 16:58 16 Temp Pulse Resp BP Pulse Ox 96.9 F L 77 20 110/60 96 12/21/17 07:08 12/21/17 07:08 12/21/17 07:08 12/21/17 07:08 12/18/17 17:02 12/21/17 06:40 12/21/17 06:40 Lab Results 12/21/17 06:40: TSH 3rd Generation 1.84 12/21/17 06:40: Sodium 142, Potassium 4.5, Chloride 104, Carbon Dioxide 28, Anion Gap 15, BUN 22 H, Creatinine 1.1, Est GFR ( Amer) 60, Est GFR (Non- Af Amer) 50, Random Glucose 97, Calcium 9.4 12/21/17 06:40: WBC 3.2 L D, RBC 4.24, Hgb 12.9, Hct 38.5, MCV 90.8, MCH 30.4, MCHC 33.5, RDW 13.9, Plt Count 144, MPV 9.2 12/20/17 08:00: Hemoglobin A1c 5.8 12/20/17 08:00: Iron 36 L, TIBC 329, % Saturation 11 L 12/20/17 08:00: Triglycerides 61, Cholesterol 137, LDL Cholesterol Direct 46, HDL Cholesterol 58, Vitamin B12 318, Folate 10.8 DSM 5 Symptoms Update: Willow Cast is a 67 year old female, with medical history includes CHF, hypertension, DVT, asthma, dementia, diabetes, depression, CAD with coronary stent placement, history of one psychiatric admission "years back", reported history of depression, possible Alzheimer's dementia with behavioral disturbances and hallucinations, initially patient was admitted on the medical side for evaluation of Change in mental status and hallucinations, pt was medically cleared, now pt has POA, her daughter, pt daughter signed consent for tx. Pt was agitated on the medical site, was actively hallucinating, requires further evaluation and stabilization, meds adjustment. pt was seen at the treatment team meeting poor personal hygiene, poor ADLs, pt is more disorganized, paranoid, at times irritable, annoyed, difficulties to express herself, and difficulties to complete sentences, Thought process is tangential, pt feels frustrated because at times pt realizing that she does not make sense. considering the fact that pt is cognitively declining for the past few weeks this advertising writer believes that pt might need NH placement. will d/w POA, daughter. still has visual hallucinations, paranoia prominent "I don't know why but I need to go downstairs, you need to let me go, no nothing is wrong, I just need to go there, do not ask me where...I want to have private conversation with you because everybody is listening what I am saying, oh you see that jillian is looking at us...." pt has impulses unpredictable. so far patient tolerates medications well, no side effects observed or reported , aims 0, no EPS. 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 Medication Change: No (wellbutrin, seroquel increased yesterday) Medical Record Reviewed: Yes Consults ordered or reviewed: consult appreciated, see notes for more detailed information Mental Status Examination - Cognitive Function Orientation: Person Memory: Impaired (chronic, patient has dementia) Attention: Poor Concentration: Poor Association: Loose Fund of Knowledge: Poor - Mood Mood: Depressed, Anxious - Affect Affect: Constricted (and irritable) - Formal Thought Process Formal Thought Process: Hallucinations, Delusions, Paranoia, Loosening of associations - Suicidal Ideation Suicidal Ideation: No - Homicidal Ideation Homicidal Ideation: No Goal/Treatment Plan - Goal/Treatment Plan Need for Continued Stay: Remain at risks for inpatient hospitalization, Severe depression anxiety, Discharge may exacerbated symptoms, Failed transitioning, Severe functional impairment Progress Toward Problem(s) and Goals/Treatment Plan: Milieu/structure/supportive therapy Medical consult will be called seroquel increased Wellbutrin resumed family involved, possible NH placement SW consultation for discharge plan and social issues Med management (specify the name, doses, plan to titrate or wean it off) Family involvement Follow up on labs Will monitor closely Pt was educated about risk/benefits and alternatives of medications, coping strategies (safety plan, suicide prevention), relapse prevention, importance of follow up with psychiatrist and therapist, stay away from drugs/alcohol/smoking Estimated Date of D/C: 12/27/17
--- NOTE | 2017-12-21 22:15 | PN ---
DATE: 12/21/2017 SUBJECTIVE: The patient is a 67-year-old female. The patient is seen and examined on the bedside. Looking comfortable. No nausea, vomiting, diarrhea. No hematuria or hematochezia. No swelling of the legs. No chest pain. No palpitation. No headache. No dizziness. PHYSICAL EXAMINATION: VITAL SIGNS: Temperature 96.9, pulse 80 blood pressure 120/80 , respiratory rate 20. HEENT: Head normocephalic, atraumatic. Eyes PERRLA. Extraocular muscles intact. Conjunctivae clear. Nose patent. Mucous membrane moist. NECK: Supple. No carotid bruit. No JVD. No thyromegaly. CHEST: Bilaterally symmetrical. HEART: S1 and S2 positive. LUNGS: Clear to auscultation. ABDOMEN: Soft. Bowel sounds positive. No organomegaly. EXTREMITIES: No edema. No cyanosis. NEUROLOGICAL: The patient is awake and alert. Moving all 4 extremities. No focal deficits. LABORATORY DATA: We do not have recent labs today, but I reviewed old labs. MEDICATIONS: Ativan, digoxin, Plavix, Geodon, Inderal, Maalox, milk of magnesia, Namenda, Plavix, Seroquel, Tylenol, tramadol, Wellbutrin. ASSESSMENT AND PLAN: Ms. Willow Cast, 67-year-old female with history of congestive heart failure, hypertension, asthma, dementia, diabetes mellitus, anemia, arthritis, history of fall, unsteady gait, anxiety, depression, coronary artery disease, coronary artery stenting, gastric bypass surgery, was admitted into [facility] for depression, anxiety, hallucinations. Now, transferred to [facility] under the care of Dr. Carla Wilkinson, getting psychiatric medications. Ativan and Geodon working very well. The patient is getting better. Hallucinations are getting better. We will continue present treatment. Gastrointestinal, deep venous thrombosis prophylaxis. Repeat labs. Fariha Olvera MD MTDD
[2017-12-22] MEDS: Iron Complex Polysacch 150mg Cap PO SCH (08:40)
[2017-12-22] MEDS: Digoxin 125 mcg (0.125 mg) Tab PO SCH (14:59)
--- NOTE | 2017-12-22 15:51 | PCM.PYCHPN ---
Psychiatric Progress Note - Psychiatric Progress Note Patient seen today, length of contact: 30min Patient Chief Complaint: "I don't know why but I need to go somewhere..." Problems Identified/Issues Discussed: Suicide/ homicide prevention, past psychiatric h/o, current psychiatric symptoms , medical problems, risk/benefits and alternatives of medications, medications compliance, coping strategies, substance abuse h/o, relapse prevention, importance of follow up with psychiatrist and therapist, discharge plan. but it is complicated because of pt's disorganized thoughts, dementia and paranoia. Medical Problems: CHF, hypertension, DVT, asthma, dementia, diabetes, depression, CAD with coronary stent placement Diagnostic Results: Lab Results 12/20/17 08:00: Hemoglobin A1c 5.8 12/20/17 08:00: Iron 36 L, TIBC 329, % Saturation 11 L 12/20/17 08:00: Triglycerides 61, Cholesterol 137, LDL Cholesterol Direct 46, HDL Cholesterol 58, Vitamin B12 318, Folate 10.8 Vital Signs Temp Pulse Resp BP Pulse Ox 12/20/17 09:12 64 99/54 L 12/20/17 06:43 98.3 F 64 19 99/54 L 12/19/17 08:57 68 112/63 12/19/17 06:53 97.9 F 66 20 112/63 12/19/17 06:50 97.9 F 66 20 12/18/17 17:02 97.9 F 85 17 129/66 96 12/18/17 16:58 16 Temp Pulse Resp BP Pulse Ox 96.9 F L 77 20 110/60 96 12/21/17 07:08 12/21/17 07:08 12/21/17 07:08 12/21/17 07:08 12/18/17 17:02 12/21/17 06:40 12/21/17 06:40 Lab Results 12/21/17 06:40: TSH 3rd Generation 1.84 12/21/17 06:40: Sodium 142, Potassium 4.5, Chloride 104, Carbon Dioxide 28, Anion Gap 15, BUN 22 H, Creatinine 1.1, Est GFR ( Amer) 60, Est GFR (Non- Af Amer) 50, Random Glucose 97, Calcium 9.4 12/21/17 06:40: WBC 3.2 L D, RBC 4.24, Hgb 12.9, Hct 38.5, MCV 90.8, MCH 30.4, MCHC 33.5, RDW 13.9, Plt Count 144, MPV 9.2 12/20/17 08:00: Hemoglobin A1c 5.8 12/20/17 08:00: Iron 36 L, TIBC 329, % Saturation 11 L 12/20/17 08:00: Triglycerides 61, Cholesterol 137, LDL Cholesterol Direct 46, HDL Cholesterol 58, Vitamin B12 318, Folate 10.8 DSM 5 Symptoms Update: Willow Cast is a 67 year old female, with medical history includes CHF, hypertension, DVT, asthma, dementia, diabetes, depression, CAD with coronary stent placement, history of one psychiatric admission "years back", reported history of depression, possible Alzheimer's dementia with behavioral disturbances and hallucinations, initially patient was admitted on the medical side for evaluation of Change in mental status and hallucinations, pt was medically cleared, now pt has POA, her daughter, pt daughter signed consent for tx. Pt was agitated on the medical site, was actively hallucinating, requires further evaluation and stabilization, meds adjustment. pt was seen at the hallway poor personal hygiene, poor ADLs, pt is more disorganized, paranoid, at times irritable, annoyed, difficulties to express herself, wonders in the unit. for example today pt had a tray with her food and did not know where to go and what to do. Thought process is tangential, pt feels frustrated because at times pt realizing that she does not make sense. considering the fact that pt is cognitively declining for the past few weeks this singer songwriter believes that pt might need NH placement. will d/w POA, daughter. MMSE 19/30 12/21/17 still has visual hallucinations, paranoia prominent. SW contacted pt's POA, pt's poa daughter wants to take pt back home, will initiate family meeting because this singer songwriter does believe that pt will be not able to improve significantly to be d/c back home. so far patient tolerates medications well, no side effects observed or reported , aims 0, no EPS. as per RN report pt required Geodon because pt was very confused and tried to wake her roommate up. 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 Medication Change: No Medical Record Reviewed: Yes Mental Status Examination - Cognitive Function Orientation: Person Memory: Impaired (chronic, patient has dementia) Attention: Poor Concentration: Poor Association: Loose Fund of Knowledge: Poor - Mood Mood: Depressed, Anxious - Affect Affect: Constricted (and irritable) - Formal Thought Process Formal Thought Process: Hallucinations, Delusions, Paranoia, Loosening of associations - Suicidal Ideation Suicidal Ideation: No - Homicidal Ideation Homicidal Ideation: No Goal/Treatment Plan - Goal/Treatment Plan Need for Continued Stay: Remain at risks for inpatient hospitalization, Severe depression anxiety, Discharge may exacerbated symptoms, Failed transitioning, Severe functional impairment Progress Toward Problem(s) and Goals/Treatment Plan: Milieu/structure/supportive therapy Medical consult will be called seroquel increased Wellbutrin resumed family involved, possible NH placement, famly meeting consultation for discharge plan and social issues Family involvement Follow up on labs Will monitor closely Pt was educated about risk/benefits and alternatives of medications, coping strategies (safety plan, suicide prevention), relapse prevention, importance of follow up with psychiatrist and therapist, stay away from drugs/alcohol/smoking Estimated Date of D/C: 12/27/17
--- NOTE | 2017-12-23 03:39 | PN ---
DATE: 12/22/2017 SUBJECTIVE: Patient is a 67-year-old female. Patient is seen and examined on bedside, looking comfortable, a little bit anxious. No nausea, vomiting or diarrhea. No hematuria, no hematochezia. No swelling of the legs. No chest pain or palpitations. No headache or dizziness. PHYSICAL EXAMINATION: VITAL SIGNS: Temperature 97.7, pulse 77, blood pressure 123/72, respiratory rate 20. HEENT: Head normocephalic, atraumatic. Eyes, PERRLA. Extraocular muscles intact. Conjunctivae clear. Nose patent. NECK: Supple, no carotid bruit. No JVD or thyromegaly. CHEST: Bilaterally symmetrical. HEART: S1, S2 positive. LUNGS: Clear to auscultation. ABDOMEN: Soft, bowel sounds present. No organomegaly. EXTREMITIES: No edema, no cyanosis. NEUROLOGICAL: Patient is awake, alert, moving all 4 extremities, no focal deficits. MEDICATIONS: Ativan, digoxin, Ferrex, Geodon, Inderal, Maalox, milk of magnesia, Namenda, Plavix, Seroquel, Tylenol, tramadol, Wellbutrin. LABORATORY DATA: We do not have recent labs today, but I reviewed old labs. ASSESSMENT AND PLAN: Ms. Willow Cast is a 67-year-old lady with , iron deficiency, history of gastric bypass, leukopenia, history of hypertension, congestive heart failure, deep venous thrombosis, asthma, depression, coronary artery disease with coronary artery stent placement. Gastrointestinal and deep venous thrombosis prophylaxis. Repeat labs. We will follow up. Fariha Olvera MD HOMERO
[2017-12-23] MEDS: Iron Complex Polysacch 150mg Cap PO SCH (08:58)
--- NOTE | 2017-12-23 09:03 | PCM.PYCHPN ---
Psychiatric Progress Note - Psychiatric Progress Note Patient seen today, length of contact: 25 min Problems Identified/Issues Discussed: Willow Cast is a 67 year old female, with history of depression, possible Alzheimer's dementia with behavioral disturbances and hallucinations who was initially admitted on the medical side for evaluation of Change in mental status and hallucinations. Patient was medically cleared, now pt has POA, her daughter who signed consent for psychiatric tx as patient was agitated and actively hallucinating on the medical site I reviewed recent notes. Patient is known to me from her prior admission as well as consultation on the medical floor. She recognizes me and as usual, she is friendly and polite. She is aware of her current location however she doesnt know month or year. Patient only has a superficial understanding of her circumstances. She has been compliant with medications and denies any new side effects, discomfort or pain. Patient denies depression or hallucinations at this time though endorsed them on the medical floor and has been observed responding to internal stimuli during acute episodes. She doesnt appear to be hallucinating during my visit however thought process is disorganized. Staff notes indicate that she has been frustrated, and nathan about her symptoms and circumstances. She has periods of paranoia, confusion and incoherency which require redirection and prn medications. Other times she can tolerate group settings. Her behavior remains unpredictable. Diagnostic Results: Alzheimer's dementia with behavioral disturbances and psychosis Medication Change: No Medical Record Reviewed: Yes Mental Status Examination - Cognitive Function Orientation: Person, Place Memory: Impaired (chronic, patient has dementia) Attention: Poor Concentration: Poor Association: Loose Fund of Knowledge: Poor - Mood Mood: Depressed, Anxious - Affect Affect: Constricted (and irritable) - Formal Thought Process Formal Thought Process: Hallucinations, Delusions, Paranoia, Loosening of associations - Suicidal Ideation Suicidal Ideation: No - Homicidal Ideation Homicidal Ideation: No Goal/Treatment Plan - Goal/Treatment Plan Need for Continued Stay: Remain at risks for inpatient hospitalization, Severe depression anxiety, Discharge may exacerbated symptoms, Failed transitioning, Severe functional impairment Progress Toward Problem(s) and Goals/Treatment Plan: * c/w current tx and medications * No new floor labs thus far * Vitals reviewed and noted below: Selected Entries 12/23/17 06:48 Temperature 97.2 F L Pulse Rate 70 Respiratory 20 Rate Blood Pressure 137/80 Estimated Date of D/C: 12/27/17
[2017-12-23] MEDS: Digoxin 125 mcg (0.125 mg) Tab PO SCH (13:31)
[2017-12-24 07:20] LABS: HEMOGLOBIN 11.1 g/dL (12.0-16.0); MEAN CELL VOLUME 89.6 fl (80.0-105.0); MEAN CORPUSCULAR HEMOGLOBIN 29.7 pg (25.0-35.0); MEAN CORPUSCULAR HGB CONC 33.1 g/dl (31.0-37.0); MEAN PLATELET VOLUME 8.9 fl (7.0-11.0); RBC 3.74 10^6/uL (3.5-6.1); RED CELL DISTRIBUTION WIDTH 13.8 % (11.5-14.5); WHITE BLOOD COUNT 4.4 10^3/ul (4.5-11.0)
[2017-12-24 07:38] LABS: CALCIUM 9.1 mg/dL (8.4-10.5)
[2017-12-24] MEDS: Iron Complex Polysacch 150mg Cap PO SCH (09:01)
--- NOTE | 2017-12-24 10:24 | PCM.PYCHPN ---
Psychiatric Progress Note - Psychiatric Progress Note Patient seen today, length of contact: 25 min Problems Identified/Issues Discussed: Willow Cast is a 67 year old female, with history of depression, possible Alzheimer's dementia with behavioral disturbances and hallucinations who was initially admitted on the medical side for evaluation of Change in mental status and hallucinations. Patient was medically cleared, now pt has POA, her daughter who signed consent for psychiatric tx as patient was agitated and actively hallucinating on the medical site Patient is known to me from her prior admission as well as consultation on the medical floor. I reviewed recent notes. She has been disorganized, confused and delusional over the weekend. Patient has only a superficial understanding of her circumstances and this varies depending on her episodes of confusion. On Monday, she received Geodon 20 mg po on two occasions and ativan 1 mg po for impulsivity and agitation. Patient has required a lot of redirection because she wanders into other patient's rooms. She was also observed to be checking the exit doors. Patient has been compliant with medications and denies any new side effects, discomfort or pain during my interviews. Patient denies depression or hallucinations at this time though endorsed them on the medical floor and has been observed responding to internal stimuli during acute episodes. She doesn't appear to be hallucinating during my visit however thought process is disorganized. Patient remains unpredictable and requires further treatment and monitoring. Diagnostic Results: Alzheimer's dementia with behavioral disturbances and psychosis Medication Change: No Medical Record Reviewed: Yes Mental Status Examination - Cognitive Function Orientation: Person, Place Memory: Impaired (chronic, patient has dementia) Attention: Poor Concentration: Poor Association: Loose Fund of Knowledge: Poor - Mood Mood: Depressed, Anxious - Affect Affect: Constricted (and irritable) - Formal Thought Process Formal Thought Process: Hallucinations, Delusions, Paranoia, Loosening of associations - Suicidal Ideation Suicidal Ideation: No - Homicidal Ideation Homicidal Ideation: No Goal/Treatment Plan - Goal/Treatment Plan Need for Continued Stay: Remain at risks for inpatient hospitalization, Severe depression anxiety, Discharge may exacerbated symptoms, Failed transitioning, Severe functional impairment Progress Toward Problem(s) and Goals/Treatment Plan: * c/w current tx and medications * Vitals reviewed and noted below: Selected Entries 12/24/17 12/24/17 07:15 09:01 Temperature 97.5 F L Pulse Rate 81 81 Respiratory 20 Rate Blood Pressure 138/80 138/80 * New weekend labs noted below: Laboratory Results - last 24 hr 12/24/17 12/24/17 06:45 06:45 WBC 4.4 L D RBC 3.74 Hgb 11.1 L Hct 33.5 L MCV 89.6 MCH 29.7 MCHC 33.1 RDW 13.8 Plt Count 150 MPV 8.9 Sodium 142 Potassium 4.1 Chloride 105 Carbon Dioxide 27 Anion Gap 13 BUN 27 H Creatinine 1.1 Est GFR ( Amer) 60 Est GFR (Non-Af Amer) 50 Random Glucose 93 Calcium 9.1 Estimated Date of D/C: 12/27/17
--- NOTE | 2017-12-24 14:31 | PN ---
DATE: 12/20/2017 SUBJECTIVE: Patient is a 67-year-old female. Patient was seen and examined on the bedside on 12/20/2017. Looking comfortable. No nausea, vomiting, or diarrhea. No hematuria or hematochezia. No swelling of the legs. No chest pain or palpitations. PHYSICAL EXAMINATION: VITAL SIGNS: Temperature 98.3, pulse 64, respiratory rate 19, blood pressure 99/64. HEENT: Head: Normocephalic, atraumatic. Eyes: PERRLA. Extraocular muscles are intact. Conjunctivae clear. Nose patent. Mucous membranes are moist. NECK: Supple. No carotid bruit. No JVD or thyromegaly. CHEST: Bilaterally symmetrical. HEART: S1, S2 positive. LUNGS: Clear to auscultation. ABDOMEN: Soft. Bowel sounds positive. No organomegaly. EXTREMITIES: No edema. No cyanosis. NEUROLOGIC: The patient is awake and alert. Moving all four extremities with no focal deficit. MEDICATIONS: Reviewed by me. No change in the medications. LABORATORY DATA: Reviewed by me. We do not have recent labs today, but I reviewed old labs. ASSESSMENT AND PLAN: Ms. Willow Cast is a 67-year-old female with history of congestive heart failure, hypertension, deep venous thrombosis, asthma, dementia, diabetes mellitus, depression, coronary artery disease, coronary artery stenting placement, history of psychiatric admissions years back, came with depression and possibly dementia with behavioral disturbance and hallucinations. Initially, patient admitted on the medical side for evaluation of change in mental status and hallucinations. The patient medically cleared now. POA, her daughter agrees and signed for mother's admission to psych floor. Patient is getting psych treatment from Dr. Carla Wilkinson. Continue present treatment. Repeat labs. We will follow up. Fariha Olvera MD
[2017-12-24] MEDS: Digoxin 125 mcg (0.125 mg) Tab PO SCH (16:17)
--- NOTE | 2017-12-25 09:07 | PN ---
DATE: 12/23/2017 SUBJECTIVE: Patient is a 67-year-old female. Patient is seen an examined at bedside, looking comfortable. No nausea, vomiting or diarrhea. No hematuria or hematochezia. No swelling of the legs. No chest pain or palpitation. No headache or dizziness. No fever, no chills. EAT food very well. No change in the status. PHYSICAL EXAMINATION: VITAL SIGNS: Temperature 97.2, pulse 70, blood pressure 120/78, respiratory rate 20. HEENT: Head normocephalic, atraumatic. Eyes, PERRLA. Extraocular muscles intact. Conjunctivae clear. Nose patent. Mucosus membrane moist. NECK: Supple, no carotid bruit. No JVD or thyromegaly. CHEST: Bilaterally symmetrical. HEART: S1, S2 positive. LUNGS: Clear to auscultation. ABDOMEN: Soft, bowel sounds present. No organomegaly. EXTREMITIES: No edema, no cyanosis. NEUROLOGICAL: Patient is awake, alert, moving all 4 extremities, no focal deficits. MEDICATIONS: Ativan, digoxin, iron, Geodon, propranolol, Maalox, milk of magnesia, Namenda. LABORATORY DATA: We do not have recent labs today, but I reviewed old labs. ASSESSMENT AND PLAN: The patient is a 67-year-old lady with leukopenia, history of gastric bypass, history of hypertension, congestive heart failure, deep vein thrombosis, per history asthma, depression, coronary artery disease with history of coronary artery stent placement, history of delusions and hallucinations, came in to Psych Department for delusions and hallucinations, is under care of a psychiatrist. Medically she is doing fine. Repeat labs. We will follow up. Fariha Olvera MD MTDHaris
[2017-12-25] MEDS: Iron Complex Polysacch 150mg Cap PO SCH (09:15)
--- NOTE | 2017-12-25 09:31 | PN ---
DATE: 12/24/2017 SUBJECTIVE: The patient is 67-year-old female. The patient was seen and examined at the bedside on 12/24/2017 and looking comfortable. No nausea, vomiting or diarrhea. No hematemesis or hematochezia. Feels very sleepy, but awake, not very alert. No headache. No dizziness. No chest pain or palpitations. PHYSICAL EXAMINATION: VITAL SIGNS: Temperature 98.7, pulse 47, blood pressure 114/52, respiratory rate 20. HEENT: Head: Normocephalic, atraumatic. Eyes: PERRLA. Extraocular muscles intact. Conjunctivae clear. Nose: Patent. Mucous membrane moist. NECK: Supple. No carotid bruit. There is no JVD or thyromegaly. CHEST: Bilaterally symmetrical. HEART: S1, S2 positive. LUNGS: Clear to auscultation. ABDOMEN: Soft. Bowel sounds present. No organomegaly. EXTREMITIES: No edema, no cyanosis. NEUROLOGICAL: The patient is awake, but not very alert. Looks like fatigued, answering simple questions, cooperative. MEDICATIONS: Ativan, digoxin, Geodon, Inderal, Maalox, milk of magnesia, Namenda, Plavix, Tylenol, tramadol, Wellbutrin. LABORATORY DATA: White blood cell is 4.4, hemoglobin 11.1, hematocrit 33.5. Sodium 142, potassium 4.1, BUN 27, creatinine 1.1, glucose 93. ASSESSMENT AND PLAN: Ms. Willow Cast is a 67-year-old lady with leukopenia, anemia, increased BUN, iron deficiency, history of congestive heart failure, hypertension, deep vein thrombosis, asthma, dementia, diabetes mellitus, depression, coronary artery disease, coronary artery stent placement, history of psychiatric admission back many years ago and recently also, is under care of psychiatrist. GI, deep venous thrombosis prophylaxes. Repeat labs. We will follow up. Fariha Olvera MD
--- NOTE | 2017-12-25 12:37 | PCM.BM ---
<Tristin Castro - Last Filed: 12/25/17 12:37> Treatment Plan Problems - Problems identified on initial assessmt ALTERED THOUGHT PROCESS Date Initiated: 12/18/17 Time Initiated: 20:00 Assessment reference: NA Status: Active Priority: 1 FEELING WORTHLESSNESS Date Initiated: 12/18/17 Time Initiated: 20:00 Assessment reference: NA Status: Active Priority: 2 INEFFECTIVE COPING SKILLS Date Initiated: 12/18/17 Time Initiated: 20:00 Assessment reference: NA Status: Active Priority: 3 Treatment assets and liabiliti Patient Assests: adapts well, educated, ADL independent, good support system, negotiates basic needs Patient Liabilities: imparied memory - Milieu Protocol Maintain good personal hygiene: every shift Encourage regular showers, every shift Remind patient to perform daily oral care, every shift Assist patient to perform ADL's Maintain personal safety: daily Educate patient to report safety concerns to staff, daily Monitor environment for contraband/sharps Medication safety: Monitor for expected outcome, potential side effects: daily, Assess barriers to learning: daily, Assess readiness for medication education: daily Milieu Narrative: * c/w current tx and medications * Vitals reviewed and noted below: Selected Entries 12/24/17 12/24/17 07:15 09:01 Temperature 97.5 F L Pulse Rate 81 81 Respiratory 20 Rate Blood Pressure 138/80 138/80 * New weekend labs noted below: Laboratory Results - last 24 hr 12/24/17 12/24/17 06:45 06:45 WBC 4.4 L D RBC 3.74 Hgb 11.1 L Hct 33.5 L MCV 89.6 MCH 29.7 MCHC 33.1 RDW 13.8 Plt Count 150 MPV 8.9 Sodium 142 Potassium 4.1 Chloride 105 Carbon Dioxide 27 Anion Gap 13 BUN 27 H Creatinine 1.1 Est GFR ( Amer) 60 Est GFR (Non-Af Amer) 50 Random Glucose 93 Calcium 9.1 Family Contact Family involvement: Family/SO is involved Family contact: Patient agrees to contact Family contact name: Gina Morgan(daughter/POA) Family contacted how many times per week?: 2 Discharge/Continuing Care - Education Needs Education Needs: Family Medication, Family Diagnosis/Disease Process, Family Coping Skills, Family Community resources, Family Activities of Daily Living, Family Nutrition, Family Health Practices/Safety, Family Personal Hygiene/ Grooming, Family Aftercare Safety Plan, Patient Medication, Patient Diagnosis/ Disease Process, Patient Coping Skills, Patient Community resources, Patient Activities of Daily Living, Patient Nutrition, Patient Health Practices/Safety, Patient Personal Hygiene/Grooming, Patient Aftercare Safety Plan - Discharge Discharge Criteria: Tolerates medication w/o severe side effects, Free of paranoid thoughts, Normal sleep pattern, Ability to care for self, Reduction of target symptoms Discharge to:: Home - Treatment Team Participation Patient/Family/SO Statement: * c/w current tx and medications * Vitals reviewed and noted below: Selected Entries 12/24/17 12/24/17 07:15 09:01 Temperature 97.5 F L Pulse Rate 81 81 Respiratory 20 Rate Blood Pressure 138/80 138/80 * New weekend labs noted below: Laboratory Results - last 24 hr 12/24/17 12/24/17 06:45 06:45 WBC 4.4 L D RBC 3.74 Hgb 11.1 L Hct 33.5 L MCV 89.6 MCH 29.7 MCHC 33.1 RDW 13.8 Plt Count 150 MPV 8.9 Sodium 142 Potassium 4.1 Chloride 105 Carbon Dioxide 27 Anion Gap 13 BUN 27 H Creatinine 1.1 Est GFR ( Amer) 60 Est GFR (Non-Af Amer) 50 Random Glucose 93 Calcium 9.1 Treatment Plan Review - Problem ALTERED THOUGHT PROCESS Time Initiated: 20:00 FEELING WORTHLESSNESS Time Initiated: 20:00 INEFFECTIVE COPING SKILLS Time Initiated: 20:00 <Carla Wilkinson A - Last Filed: 12/25/17 13:14> - Diagnosis (1) Dementia with behavioral disturbance Status: Acute Interventions: 12/25/17 13:14 not improving med management NH placement to be discussed with family family meeting Monday12/27/17 <Leola Landry - Last Filed: 12/25/17 17:00>
[2017-12-25] MEDS: Digoxin 125 mcg (0.125 mg) Tab PO SCH (14:58)
--- NOTE | 2017-12-25 16:33 | PCM.PYCHPN ---
Psychiatric Progress Note - Psychiatric Progress Note Patient seen today, length of contact: 30min Patient Chief Complaint: "did you see? did you see that rat?" pt is hallucinating, no rats around. Problems Identified/Issues Discussed: Suicide/ homicide prevention, past psychiatric h/o, current psychiatric symptoms , medical problems, risk/benefits and alternatives of medications, medications compliance, coping strategies, substance abuse h/o, relapse prevention, importance of follow up with psychiatrist and therapist, discharge plan. had prolonged conversation with pt's POA daughter during the family meeting 12/25. Medical Problems: CHF, hypertension, DVT, asthma, dementia, diabetes, depression, CAD with coronary stent placement Diagnostic Results: Lab Results 12/20/17 08:00: Hemoglobin A1c 5.8 12/20/17 08:00: Iron 36 L, TIBC 329, % Saturation 11 L 12/20/17 08:00: Triglycerides 61, Cholesterol 137, LDL Cholesterol Direct 46, HDL Cholesterol 58, Vitamin B12 318, Folate 10.8 Vital Signs Temp Pulse Resp BP Pulse Ox 12/20/17 09:12 64 99/54 L 12/20/17 06:43 98.3 F 64 19 99/54 L 12/19/17 08:57 68 112/63 12/19/17 06:53 97.9 F 66 20 112/63 12/19/17 06:50 97.9 F 66 20 12/18/17 17:02 97.9 F 85 17 129/66 96 12/18/17 16:58 16 Temp Pulse Resp BP Pulse Ox 96.9 F L 77 20 110/60 96 12/21/17 07:08 12/21/17 07:08 12/21/17 07:08 12/21/17 07:08 12/18/17 17:02 12/21/17 06:40 12/21/17 06:40 Lab Results 12/21/17 06:40: TSH 3rd Generation 1.84 12/21/17 06:40: Sodium 142, Potassium 4.5, Chloride 104, Carbon Dioxide 28, Anion Gap 15, BUN 22 H, Creatinine 1.1, Est GFR ( Amer) 60, Est GFR (Non- Af Amer) 50, Random Glucose 97, Calcium 9.4 12/21/17 06:40: WBC 3.2 L D, RBC 4.24, Hgb 12.9, Hct 38.5, MCV 90.8, MCH 30.4, MCHC 33.5, RDW 13.9, Plt Count 144, MPV 9.2 12/20/17 08:00: Hemoglobin A1c 5.8 12/20/17 08:00: Iron 36 L, TIBC 329, % Saturation 11 L 12/20/17 08:00: Triglycerides 61, Cholesterol 137, LDL Cholesterol Direct 46, HDL Cholesterol 58, Vitamin B12 318, Folate 10.8 Temp Pulse Resp BP Pulse Ox 98.7 F 47 L 20 114/62 96 12/25/17 07:14 12/25/17 07:14 12/25/17 07:14 12/25/17 07:14 12/18/17 17:02 Laboratory Results - last 72 hr 12/24/17 12/24/17 06:45 06:45 WBC 4.4 L D RBC 3.74 Hgb 11.1 L Hct 33.5 L MCV 89.6 MCH 29.7 MCHC 33.1 RDW 13.8 Plt Count 150 MPV 8.9 Sodium 142 Potassium 4.1 Chloride 105 Carbon Dioxide 27 Anion Gap 13 BUN 27 H Creatinine 1.1 Est GFR ( Amer) 60 Est GFR (Non-Af Amer) 50 Random Glucose 93 Calcium 9.1 DSM 5 Symptoms Update: Willow Cast is a 67 year old female, with medical history includes CHF, hypertension, DVT, asthma, dementia, diabetes, depression, CAD with coronary stent placement, history of one psychiatric admission "years back", reported history of depression, possible Alzheimer's dementia with behavioral disturbances and hallucinations, initially patient was admitted on the medical side for evaluation of Change in mental status and hallucinations, pt was medically cleared, now pt has POA, her daughter, pt daughter signed consent for tx. Pt was agitated on the medical site, was actively hallucinating, requires further evaluation and stabilization, meds adjustment. pt was seen at the hallway poor personal hygiene, poor ADLs, pt is more disorganized, paranoid, at times irritable, annoyed, difficulties to express herself, wonders in the unit. pt was actively hallucinating during the interview today patient reported that she sees rats and cats but obviously there is no presence off cats or rats in the unit. As per report patient is more confused, forgetful, at times agitated because of paranoia. family meeting took place today with patient and daughter MELISA, discharge planning was discussed in details, this web content writer as well as secondary social studies teacher educated daughter about patient condition and fast progression of dementia, daughter was advised [facility] placement for patient, patient daughter also was educated about wandering behavior, hallucinations, confusions, about risk of being lost in the community if patient will left unsupervised, patient daughter also was advised about forgetfulness, worsening of dementia, risk of disorganized behavior, injurious behavior as well as potential fire in the house because pt is very forgetful and confused, pt's daughter verbalized understanding. Pt's daughter said that she works supervisor production department, for three days when daughter works pt will attend the [facility] day [facility], meanwhile, pt 's neighbour will watch after pt. will call Neurologist for f/u, as per family request. MMSE 19/30 12/21/17 pt tolerates meds well, no side effects observed or reported. 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 Medication Change: Yes (seroquel increased) Medical Record Reviewed: Yes Consults ordered or reviewed: consult appreciated, see notes for more detailed information Mental Status Examination - Cognitive Function Orientation: Person, Place Memory: Impaired (chronic, patient has dementia) Attention: Poor Concentration: Poor Association: Loose Fund of Knowledge: Poor - Mood Mood: Depressed, Anxious - Affect Affect: Constricted (and irritable) - Formal Thought Process Formal Thought Process: Hallucinations, Delusions, Paranoia, Loosening of associations - Suicidal Ideation Suicidal Ideation: No - Homicidal Ideation Homicidal Ideation: No Goal/Treatment Plan - Goal/Treatment Plan Need for Continued Stay: Remain at risks for inpatient hospitalization, Severe depression anxiety, Discharge may exacerbated symptoms, Failed transitioning, Severe functional impairment Progress Toward Problem(s) and Goals/Treatment Plan: Milieu/structure/supportive therapy Medical consult will be called seroquel increased 175mg po hs Wellbutrin 75mg po [place] family involved, possible NH placement, family meeting took place 12/25/17 consultation for discharge plan and social issues Family involvement Follow up on labs Will monitor closely Pt was educated about risk/benefits and alternatives of medications, coping strategies (safety plan, suicide prevention), relapse prevention, importance of follow up with psychiatrist and therapist, stay away from drugs/alcohol/smoking Estimated Date of D/C: 12/27/17
[2017-12-25] MEDS: QUETIAPINE PO SCH (21:46)
[2017-12-26] MEDS: Iron Complex Polysacch 150mg Cap PO SCH (09:26)
--- NOTE | 2017-12-26 12:12 | PN ---
DATE: 12/25/2017 SUBJECTIVE: The patient is a 67-year-old female. Patient was seen and examined on the bedside on 12/25/2017. Looking comfortable, walking around. No nausea, vomiting or diarrhea. No hematemesis or hematochezia. No chest pain. No palpitation. No headache. No dizziness. No fever. No chills. PHYSICAL EXAMINATION: VITAL SIGNS: Temperature 98.7, pulse 47, blood pressure 120/80 , respiratory rate 20. HEENT: Head: Normocephalic, atraumatic. Eyes: PERRLA. Extraocular muscles intact. Conjunctivae clear. Nose: Patent. Mucous membrane moist. NECK: Supple. No carotid bruit. No JVD or thyromegaly. CHEST: Bilaterally symmetrical. HEART: S1 and S2 positive. LUNGS: Clear to auscultation. ABDOMEN: Soft. Bowel sounds present. No organomegaly. EXTREMITIES: No edema. No cyanosis. NEUROLOGICAL: Patient is awake and alert. Moving all four extremities. No focal deficit. MEDICATIONS: Ativan, digoxin, iron, Geodon, Inderal, Maalox, milk of magnesia, Namenda, Plavix. LABORATORY DATA: White blood cell is 4.4, hemoglobin 11.1, hematocrit 33.5, platelets 150. Sodium 142, potassium 4.1, BUN 27, creatinine 1.1. ASSESSMENT AND PLAN: Ms. Willow Cast is a 67-year-old lady with multiple medical problems. She is admitted for hallucination, still she is hallucinating. She is talking about moving rats that is not there. History of leukopenia, congestive heart failure, hypertension, deep vein thrombosis, asthma, dementia, diabetes mellitus, depression, coronary artery disease with coronary artery stent placement. She is under care of psychiatrist, actively hallucinating. Deep venous thrombosis and gastrointestinal prophylaxis. Repeat labs. We will follow up. Fariha Olvera MD MTDHaris
[2017-12-26] MEDS: Digoxin 125 mcg (0.125 mg) Tab PO SCH (14:32)
--- NOTE | 2017-12-26 15:39 | PCM.PYCHPN ---
Psychiatric Progress Note - Psychiatric Progress Note Patient seen today, length of contact: 30min Patient Chief Complaint: "I need to go, I need to go somewhere" Problems Identified/Issues Discussed: Suicide/ homicide prevention, past psychiatric h/o, current psychiatric symptoms , medical problems, risk/benefits and alternatives of medications, medications compliance, coping strategies, substance abuse h/o, relapse prevention, importance of follow up with psychiatrist and therapist, discharge plan. had prolonged conversation with pt's POA daughter during the family meeting 12/25. Medical Problems: CHF, hypertension, DVT, asthma, dementia, diabetes, depression, CAD with coronary stent placement celliac dx Diagnostic Results: Lab Results 12/20/17 08:00: Hemoglobin A1c 5.8 12/20/17 08:00: Iron 36 L, TIBC 329, % Saturation 11 L 12/20/17 08:00: Triglycerides 61, Cholesterol 137, LDL Cholesterol Direct 46, HDL Cholesterol 58, Vitamin B12 318, Folate 10.8 Vital Signs Temp Pulse Resp BP Pulse Ox 12/20/17 09:12 64 99/54 L 12/20/17 06:43 98.3 F 64 19 99/54 L 12/19/17 08:57 68 112/63 12/19/17 06:53 97.9 F 66 20 112/63 12/19/17 06:50 97.9 F 66 20 12/18/17 17:02 97.9 F 85 17 129/66 96 12/18/17 16:58 16 Temp Pulse Resp BP Pulse Ox 96.9 F L 77 20 110/60 96 12/21/17 07:08 12/21/17 07:08 12/21/17 07:08 12/21/17 07:08 12/18/17 17:02 12/21/17 06:40 12/21/17 06:40 Lab Results 12/21/17 06:40: TSH 3rd Generation 1.84 12/21/17 06:40: Sodium 142, Potassium 4.5, Chloride 104, Carbon Dioxide 28, Anion Gap 15, BUN 22 H, Creatinine 1.1, Est GFR ( Amer) 60, Est GFR (Non- Af Amer) 50, Random Glucose 97, Calcium 9.4 12/21/17 06:40: WBC 3.2 L D, RBC 4.24, Hgb 12.9, Hct 38.5, MCV 90.8, MCH 30.4, MCHC 33.5, RDW 13.9, Plt Count 144, MPV 9.2 12/20/17 08:00: Hemoglobin A1c 5.8 12/20/17 08:00: Iron 36 L, TIBC 329, % Saturation 11 L 12/20/17 08:00: Triglycerides 61, Cholesterol 137, LDL Cholesterol Direct 46, HDL Cholesterol 58, Vitamin B12 318, Folate 10.8 Temp Pulse Resp BP Pulse Ox 98.7 F 47 L 20 114/62 96 12/25/17 07:14 12/25/17 07:14 12/25/17 07:14 12/25/17 07:14 12/18/17 17:02 Laboratory Results - last 72 hr 12/24/17 12/24/17 06:45 06:45 WBC 4.4 L D RBC 3.74 Hgb 11.1 L Hct 33.5 L MCV 89.6 MCH 29.7 MCHC 33.1 RDW 13.8 Plt Count 150 MPV 8.9 Sodium 142 Potassium 4.1 Chloride 105 Carbon Dioxide 27 Anion Gap 13 BUN 27 H Creatinine 1.1 Est GFR ( Amer) 60 Est GFR (Non-Af Amer) 50 Random Glucose 93 Calcium 9.1 DSM 5 Symptoms Update: Willow Cast is a 67 year old female, with medical history includes CHF, hypertension, DVT, asthma, dementia, diabetes, depression, CAD with coronary stent placement, history of one psychiatric admission "years back", reported history of depression, possible Alzheimer's dementia with behavioral disturbances and hallucinations, initially patient was admitted on the medical side for evaluation of Change in mental status and hallucinations, pt was medically cleared, now pt has POA, her daughter, pt daughter signed consent for tx. Pt was agitated on the medical site, was actively hallucinating, requires further evaluation and stabilization, meds adjustment. pt was seen at the hallway poor personal hygiene, poor ADLs, pt is more disorganized, paranoid, at times irritable, annoyed, difficulties to express herself, wonders in the unit. pt was actively hallucinating during the interview. patient failed today, did not hurt herself, medical staff so patient , patient did not require to go to the emergency room, we'll follow recommendations. Prolonged conversation with (neurologist)took place today, pt has h/o celliac disease, was advised to start gluten free diet. as per Neurologist celliac dx for pts >60 years could be presented as dementia, pt might have improvement from Thiamine 100mg, +Namenda 10mg po bid, d/c Tramadol, dietitian consult, agreed that pt needs to be placed in NH. consult/input really appreciated. MMSE 19/30 12/21/17 pt tolerates meds well, no side effects observed or reported. 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 Medication Change: Yes (see notes) Medical Record Reviewed: Yes Mental Status Examination - Cognitive Function Orientation: Person, Place Memory: Impaired (chronic, patient has dementia) Attention: Poor Concentration: Poor Association: Loose Fund of Knowledge: Poor - Mood Mood: Depressed, Anxious - Affect Affect: Constricted (and irritable) - Formal Thought Process Formal Thought Process: Hallucinations, Delusions, Paranoia, Loosening of associations - Suicidal Ideation Suicidal Ideation: No - Homicidal Ideation Homicidal Ideation: No Goal/Treatment Plan - Goal/Treatment Plan Need for Continued Stay: Remain at risks for inpatient hospitalization, Severe depression anxiety, Discharge may exacerbated symptoms, Failed transitioning, Severe functional impairment Progress Toward Problem(s) and Goals/Treatment Plan: Milieu/structure/supportive therapy Medical consult will be called seroquel increased 175mg po hs Wellbutrin 75mg po [place] family involved, possible NH placement, family meeting took place 12/25/17 namenda increased 10mg po bid thiamine 100mg po daily dietitian consult tramadol d/c SW consultation for discharge plan and social issues Family involvement Follow up on labs Will monitor closely Pt was educated about risk/benefits and alternatives of medications, coping strategies (safety plan, suicide prevention), relapse prevention, importance of follow up with psychiatrist and therapist, stay away from drugs/alcohol/smoking Estimated Date of D/C: 12/27/17
--- NOTE | 2017-12-26 16:08 | CON ---
NEUROLOGY CONSULT CHIEF COMPLAINT: Cognitive decline. HISTORY OF PRESENT ILLNESS: This is a 67-year-old woman with history of CHF, hypertension, type 2 diabetes mellitus, asthma, coronary artery disease status post stent, history of B12 deficiency, history of gastric bypass, history of recent admission on the medical side for functional hypoglycemia and dumping syndrome, history of depression, who is currently having cognitive decline with behavioral disturbances, hallucinations, who is on the psychiatric floor for mental stabilization. On reviewing the medical records of the patient, there is evidence of this patient also has celiac disease based on labs from 04/13/2017, which showed a positive endomysial IgG antibody titer as well as IgA antibody itself in addition to tissue transglutaminase IgA antibody of 4, which is elevated, which is all consistent with celiac disease. She continues to have poor personal hygiene; poor ADLs at home; is very disorganized, paranoid, and irritable; and gets annoyed with difficulty to express herself. She wandered on the unit and is hallucinating, seeing things in terms of rats on the floor and is getting more confused and forgetful and agitated at times with paranoia. PAST MEDICAL HISTORY: As above. SOCIAL HISTORY: No illicit drug use, smoking, or EtOH abuse. ALLERGIES: ALLERGIC TO GLUTEN. FAMILY HISTORY: Noncontributory. MEDICATIONS: Reviewed by nurse per reconciliation sheet. REVIEW OF SYSTEMS: Fourteen-point review of systems negative except as per the HPI. LABORATORY DATA: Today's blood glucose is 43 and iron level saturation is 36, which is low and percent saturation is 11. B12 level is within normal limits of 318. PHYSICAL EXAMINATION: VITAL SIGNS: Temperature 98.2, pulse rate is 71, blood pressure 139/84, respiratory rate of 20, and oxygen saturation 98% by room air. GENERAL: The patient is sitting up in bed, in no acute distress. HEENT: Head is atraumatic and normocephalic. PERRLA. Extraocular muscles are intact. NECK: Supple. No JVD. No adenopathy noted. LUNGS: Clear to auscultation. No adventitious sounds. HEART: S1 and S2, normal rate and rhythm. No murmurs, rubs, or gallops. ABDOMEN: Soft, nontender, and nondistended. Bowel sounds are present. EXTREMITIES: No clubbing. No cyanosis. Peripheral pulses are 2+ felt bilaterally. NEUROLOGIC: The patient is alert and oriented to person, place, not much to month or year. Recall after 5 minutes is 0/3. Poor attention span. Slow thought process. Poor personal hygiene. Cranial nerves II through XII are intact and has disorganized thoughts. Speech is hypophonic, but no aphasia noted, tactile hallucinations and loose associations. Motor exam: Slightly increased tone throughout. Moves all extremities equally. No pronator drift seen. Sensory exam: Decreased light touch and pinprick up to the calves bilaterally. Decreased vibration of the toes. DTRs are 2+ throughout, 1 at both knees and absent at the ankles. Coordination of [id number] intact. No dysmetria noted. Gait is deferred for now. ASSESSMENT AND PLAN: This is a 67-year-old woman with history of coronary artery disease status post stents, congestive heart failure, hypertension, deep venous thrombosis, asthma, type 2 diabetes mellitus, dumping syndrome, depression, history of celiac disease diagnosed on 04/13/2017, with positive tissue transglutaminase IgA antibodies and endomysial antibodies, history of recent admission on the medical side for functional hypoglycemia and dumping syndrome with normal C-peptide levels, who presents currently on the psychiatric floor for worsening hallucinations, behavioral disturbances, and agitation. The patient does have poor personal hygiene and has poor cognition for her activities of daily living and is very disorganized, paranoid, and hallucinating. CAT scan of the head reviewed from the past as well as MRIs of the brain reviewed from the past, which showed [id number] diffuse atrophy, but no acute abnormalities. I feel like her cognitive decline is to a point where it is [id number], most likely fallen into a dementia pattern of possible Alzheimer type with behavioral disturbances with celiac disease. The patient's dementia may occur in celiac disease particularly in the form of memory impairment and the patient does have neurological features of confusion, personal change which was also seen. At this time, we will recommend; 1. Strict celiac diet. 2. Thiamine 100 mg p.o. daily. 3. Stop tramadol which can aid in hallucinations in her age group. 4. Advised attention and concentration exercises. 5. Increase Namenda to 10 mg p.o. b.i.d. 6. She would definitely need to be placed in a assisted since she is not cognitively clear to operate activities of daily living and she is at risk for herself as well as to certain things at home in terms of burning the stove. I will recommend evaluation for competency. In addition, she will need possible assisted replacement discussion on placement of this patient since she is danger to herself. At this time, continue with current present medical management. We will monitor electrolytes and correct accordingly. Avoid further hypoglycemic events which can effect further cognition and follow with the medical and psychiatric team. Thank you for this consult. Dhaval Card MD
[2017-12-26 16:12] LABS: BASO # 0.02 K/mm3 (0.0-2.0); BASO % 0.4 % (0.0-3.0); EOS # 0.1 (0.0-0.7); EOS % 0.9 % (1.5-5.0); GRAN # 3.6 (1.4-6.5); GRAN % 65.1 % (50.0-68.0); HEMOGLOBIN 13.8 g/dL (12.0-16.0); LYMPH # 1.6 (1.2-3.4); MEAN CORPUSCULAR HEMOGLOBIN 30.3 pg (25.0-35.0); MEAN CORPUSCULAR HGB CONC 33.3 g/dl (31.0-37.0); MEAN PLATELET VOLUME 9.5 fl (7.0-11.0); MONO # 0.3 (0.1-0.6); MONO % 5.6 % (1.0-6.0); RBC 4.56 10^6/uL (3.5-6.1); RED CELL DISTRIBUTION WIDTH 13.8 % (11.5-14.5); WHITE BLOOD COUNT 5.5 10^3/ul (4.5-11.0)
[2017-12-26 16:27] LABS: ALB/GLOB RATIO 1.2 (1.1-1.8); CALCIUM 10.1 mg/dL (8.4-10.5)
[2017-12-26] MEDS: QUETIAPINE PO SCH (21:20)
--- NOTE | 2017-12-27 02:18 | PN ---
DATE: 12/26/2017 SUBJECTIVE: The patient was seen and examined at the bedside on 12/26/2017, looking comfortable, getting better. No nausea, vomiting or diarrhea. No hematemesis or hematochezia. No swelling of the legs. No chest pain. No palpitation. No headache. No dizziness. PHYSICAL EXAMINATION: VITAL SIGNS: Temperature 98.2, pulse 70, respiratory rate 18, blood pressure 130/82. HEENT: Head: Normocephalic, atraumatic. Eyes: PERRLA. Extraocular muscles intact. Conjunctivae clear. Nose: Patent. Mucous membrane moist. NECK: Supple. No carotid bruit. No JVD or thyromegaly. CHEST: Bilaterally symmetrical. HEART: S1, S2 positive. LUNGS: Clear to auscultation. ABDOMEN: Soft. Bowel sounds present. No organomegaly. EXTREMITIES: No edema, no cyanosis. NEUROLOGIC: The patient is awake, alert, moving all four extremities. No focal deficits. MEDICATIONS: Ativan, digoxin, Geodon, Inderal, Maalox, milk of magnesia, Namenda, Plavix, Seroquel. LABORATORY DATA: White blood cell is 5.5, hemoglobin 13.8, hematocrit 41.5, platelets 155. Sodium 145, potassium 4.7, BUN 22, creatinine 1.3. ASSESSMENT AND PLAN: Ms. Willow Cast is a 67-year-old lady with leukopenia, anemia, history of renal insufficiency, seen by psychiatrist, Dr. Wilkinson and neurologist, Dr. Dhaval Card. Has history of congestive heart failure, hypertension, diabetes mellitus, asthma, coronary artery disease, status post cardiac stent, history of B12 deficiency, history of gastric bypass, history of recent admission in the medical side for functional hypoglycemia and dumping syndrome, history of depression, having cognitive decline with behavioral disturbances, hallucinations, who is on the psych floor for the mental stabilization. Patient want to live alone, but is not able to live alone. CAT scan of the head reviewed from the past as well as MRI of the brain reviewed by the neurologist, which showed [id number] diffuse atrophy, but no acute abnormalities. Patient had dementia type with behavioral disturbances with celiac disease. Neurologist recommended strict celiac diet, thiamine, stop tramadol that can add up hallucinations. Advised attention and concentration exercises, increase Namenda 10 mg twice a day, need replacement. Gastrointestinal and deep venous thrombosis prophylaxis. Repeat labs. We will follow up. Fariha Olvera MD [facility]
[2017-12-27] MEDS: Iron Complex Polysacch 150mg Cap PO SCH (11:19)
--- NOTE | 2017-12-27 14:44 | PCM.PYCHPN ---
Psychiatric Progress Note - Psychiatric Progress Note Patient seen today, length of contact: 30min Patient Chief Complaint: "I need to go, I need to go somewhere" Problems Identified/Issues Discussed: Suicide/ homicide prevention, past psychiatric h/o, current psychiatric symptoms , medical problems, risk/benefits and alternatives of medications, medications compliance, coping strategies, substance abuse h/o, relapse prevention, importance of follow up with psychiatrist and therapist, discharge plan. had prolonged conversation with pt's POA daughter during the family meeting 12/25. Medical Problems: CHF, hypertension, DVT, asthma, dementia, diabetes, depression, CAD with coronary stent placement celliac dx Diagnostic Results: Lab Results 12/20/17 08:00: Hemoglobin A1c 5.8 12/20/17 08:00: Iron 36 L, TIBC 329, % Saturation 11 L 12/20/17 08:00: Triglycerides 61, Cholesterol 137, LDL Cholesterol Direct 46, HDL Cholesterol 58, Vitamin B12 318, Folate 10.8 Vital Signs Temp Pulse Resp BP Pulse Ox 12/20/17 09:12 64 99/54 L 12/20/17 06:43 98.3 F 64 19 99/54 L 12/19/17 08:57 68 112/63 12/19/17 06:53 97.9 F 66 20 112/63 12/19/17 06:50 97.9 F 66 20 12/18/17 17:02 97.9 F 85 17 129/66 96 12/18/17 16:58 16 Temp Pulse Resp BP Pulse Ox 96.9 F L 77 20 110/60 96 12/21/17 07:08 12/21/17 07:08 12/21/17 07:08 12/21/17 07:08 12/18/17 17:02 12/21/17 06:40 12/21/17 06:40 Lab Results 12/21/17 06:40: TSH 3rd Generation 1.84 12/21/17 06:40: Sodium 142, Potassium 4.5, Chloride 104, Carbon Dioxide 28, Anion Gap 15, BUN 22 H, Creatinine 1.1, Est GFR ( Amer) 60, Est GFR (Non- Af Amer) 50, Random Glucose 97, Calcium 9.4 12/21/17 06:40: WBC 3.2 L D, RBC 4.24, Hgb 12.9, Hct 38.5, MCV 90.8, MCH 30.4, MCHC 33.5, RDW 13.9, Plt Count 144, MPV 9.2 12/20/17 08:00: Hemoglobin A1c 5.8 12/20/17 08:00: Iron 36 L, TIBC 329, % Saturation 11 L 12/20/17 08:00: Triglycerides 61, Cholesterol 137, LDL Cholesterol Direct 46, HDL Cholesterol 58, Vitamin B12 318, Folate 10.8 Temp Pulse Resp BP Pulse Ox 98.7 F 47 L 20 114/62 96 12/25/17 07:14 12/25/17 07:14 12/25/17 07:14 12/25/17 07:14 12/18/17 17:02 Laboratory Results - last 72 hr 12/24/17 12/24/17 06:45 06:45 WBC 4.4 L D RBC 3.74 Hgb 11.1 L Hct 33.5 L MCV 89.6 MCH 29.7 MCHC 33.1 RDW 13.8 Plt Count 150 MPV 8.9 Sodium 142 Potassium 4.1 Chloride 105 Carbon Dioxide 27 Anion Gap 13 BUN 27 H Creatinine 1.1 Est GFR ( Amer) 60 Est GFR (Non-Af Amer) 50 Random Glucose 93 Calcium 9.1 DSM 5 Symptoms Update: Willow Cast is a 67 year old female, with medical history includes CHF, hypertension, DVT, asthma, dementia, diabetes, depression, CAD with coronary stent placement, history of one psychiatric admission "years back", reported history of depression, possible Alzheimer's dementia with behavioral disturbances and hallucinations, initially patient was admitted on the medical side for evaluation of Change in mental status and hallucinations, pt was medically cleared, now pt has POA, her daughter, pt daughter signed consent for tx. Pt was agitated on the medical site, was actively hallucinating, requires further evaluation and stabilization, meds adjustment. pt was seen In her room, patient was able to recognize this appeals writer, patient is aware that she is in the hospital, patient was making statements "if all days hears this time in the hospital still".later on patient was looking for her daughter and granddaughter, appears to be confused. Prolonged conversation with (neurologist)took place today, pt has h/o celliac disease, was advised to start gluten free diet. as per Neurologist celliac dx for pts >60 years could be presented as dementia, pt might have improvement from Thiamine 100mg, +Namenda 10mg po bid, d/c Tramadol, dietitian consult, agreed that pt needs to be placed in NH. consult/input really appreciated. patient is on a gluten-free diet now. MMSE 19/30 12/21/17 pt tolerates meds well, no side effects observed or reported. 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 Medication Change: Yes (see notes) Medical Record Reviewed: Yes Mental Status Examination - Cognitive Function Orientation: Person, Place Memory: Impaired (chronic, patient has dementia) Attention: Poor Concentration: Poor Association: Loose Fund of Knowledge: Poor - Mood Mood: Depressed, Anxious - Affect Affect: Constricted (and irritable) - Formal Thought Process Formal Thought Process: Hallucinations, Delusions, Paranoia, Loosening of associations - Suicidal Ideation Suicidal Ideation: No - Homicidal Ideation Homicidal Ideation: No Goal/Treatment Plan - Goal/Treatment Plan Need for Continued Stay: Remain at risks for inpatient hospitalization, Severe depression anxiety, Discharge may exacerbated symptoms, Failed transitioning, Severe functional impairment Progress Toward Problem(s) and Goals/Treatment Plan: Milieu/structure/supportive therapy Medical consult will be called seroquel increased 175mg po hs Wellbutrin 75mg po [place] family involved, possible NH placement, family meeting took place 12/25/17 namenda increased 10mg po bid thiamine 100mg po daily dietitian consult tramadol d/c consultation for discharge plan and social issues Family involvement Follow up on labs Will monitor closely Pt was educated about risk/benefits and alternatives of medications, coping strategies (safety plan, suicide prevention), relapse prevention, importance of follow up with psychiatrist and therapist, stay away from drugs/alcohol/smoking Estimated Date of D/C: 01/01/18
[2017-12-27] MEDS: Digoxin 125 mcg (0.125 mg) Tab PO SCH (15:33)
--- NOTE | 2017-12-28 00:55 | PN ---
DATE: 12/27/2017 SUBJECTIVE: The patient is a 67-year-old female. The patient was seen and examined on the bedside on 12/27/2017. Looking comfortable. No nausea, vomiting, diarrhea. No hematuria or hematochezia. No swelling of the legs. No chest pain. No palpitation. No headache. No dizziness. PHYSICAL EXAMINATION: VITAL SIGNS: Temperature 97.7, pulse 99, blood pressure 117/82, respiratory rate 20. HEENT: Head normocephalic, atraumatic. Eyes PERRLA. Extraocular muscles intact. Conjunctivae clear. Nose patent. Mucous membrane moist. NECK: Supple. No carotid bruit. No JVD or thyromegaly. CHEST: Bilaterally symmetrical. HEART: S1 and S2 positive. LUNGS: Clear to auscultation. ABDOMEN: Soft. Bowel sounds positive. No organomegaly. EXTREMITIES: No edema. No cyanosis. NEUROLOGICAL: The patient is awake and alert. Moving all 4 extremities. No focal deficits. MEDICATIONS: Ativan, digoxin, ferrous sulfate, Geodon, Inderal, Maalox, milk of magnesia, Namenda, Plavix, Seroquel, Tylenol, thiamine, Wellbutrin. LABORATORY DATA: White blood cells 5.5, hemoglobin 13.8, hematocrit 41.1, platelets 165. Sodium 145, potassium 4.7, BUN 22, creatinine 1.3. ASSESSMENT AND PLAN: Ms. Willow Cast, 67-year-old female with leukopenia, anemia, renal insufficiency, history of coronary artery disease, congestive heart failure, history of altered mental status. Neurologist is on the case. History of bipolar. Psychiatrist is on the case. History of gastric bypass, asthma, coronary artery disease, status post cardiac stented, history of B12 deficiency, status post gastric surgery, history of sometime is getting hypoglycemia, dumping syndrome. Was admitted for hallucination and behavioral disturbance. Feeling better, but is not able to live herself alone. We will talk to the family and we will try to transfer the patient to [facility] as soon as she will be ready. Repeat labs. We will follow up. Fariha Olvera MD
[2017-12-28] MEDS: Iron Complex Polysacch 150mg Cap PO SCH (09:16)
[2017-12-28] MEDS: Digoxin 125 mcg (0.125 mg) Tab PO SCH (13:00)
--- NOTE | 2017-12-28 15:16 | PCM.PYCHPN ---
Psychiatric Progress Note - Psychiatric Progress Note Patient seen today, length of contact: 30min Patient Chief Complaint: ""I know now is May" Problems Identified/Issues Discussed: Suicide/ homicide prevention, past psychiatric h/o, current psychiatric symptoms , medical problems, risk/benefits and alternatives of medications, medications compliance, coping strategies, substance abuse h/o, relapse prevention, importance of follow up with psychiatrist and therapist, discharge plan. had prolonged conversation with pt's POA daughter during the family meeting 12/25. Medical Problems: CHF, hypertension, DVT, asthma, dementia, diabetes, depression, CAD with coronary stent placement celliac dx Diagnostic Results: Lab Results 12/20/17 08:00: Hemoglobin A1c 5.8 12/20/17 08:00: Iron 36 L, TIBC 329, % Saturation 11 L 12/20/17 08:00: Triglycerides 61, Cholesterol 137, LDL Cholesterol Direct 46, HDL Cholesterol 58, Vitamin B12 318, Folate 10.8 Vital Signs Temp Pulse Resp BP Pulse Ox 12/20/17 09:12 64 99/54 L 12/20/17 06:43 98.3 F 64 19 99/54 L 12/19/17 08:57 68 112/63 12/19/17 06:53 97.9 F 66 20 112/63 12/19/17 06:50 97.9 F 66 20 12/18/17 17:02 97.9 F 85 17 129/66 96 12/18/17 16:58 16 Temp Pulse Resp BP Pulse Ox 96.9 F L 77 20 110/60 96 12/21/17 07:08 12/21/17 07:08 12/21/17 07:08 12/21/17 07:08 12/18/17 17:02 12/21/17 06:40 12/21/17 06:40 Lab Results 12/21/17 06:40: TSH 3rd Generation 1.84 12/21/17 06:40: Sodium 142, Potassium 4.5, Chloride 104, Carbon Dioxide 28, Anion Gap 15, BUN 22 H, Creatinine 1.1, Est GFR ( Amer) 60, Est GFR (Non- Af Amer) 50, Random Glucose 97, Calcium 9.4 12/21/17 06:40: WBC 3.2 L D, RBC 4.24, Hgb 12.9, Hct 38.5, MCV 90.8, MCH 30.4, MCHC 33.5, RDW 13.9, Plt Count 144, MPV 9.2 12/20/17 08:00: Hemoglobin A1c 5.8 12/20/17 08:00: Iron 36 L, TIBC 329, % Saturation 11 L 12/20/17 08:00: Triglycerides 61, Cholesterol 137, LDL Cholesterol Direct 46, HDL Cholesterol 58, Vitamin B12 318, Folate 10.8 Temp Pulse Resp BP Pulse Ox 98.7 F 47 L 20 114/62 96 12/25/17 07:14 12/25/17 07:14 12/25/17 07:14 12/25/17 07:14 12/18/17 17:02 Laboratory Results - last 72 hr 12/24/17 12/24/17 06:45 06:45 WBC 4.4 L D RBC 3.74 Hgb 11.1 L Hct 33.5 L MCV 89.6 MCH 29.7 MCHC 33.1 RDW 13.8 Plt Count 150 MPV 8.9 Sodium 142 Potassium 4.1 Chloride 105 Carbon Dioxide 27 Anion Gap 13 BUN 27 H Creatinine 1.1 Est GFR ( Amer) 60 Est GFR (Non-Af Amer) 50 Random Glucose 93 Calcium 9.1 DSM 5 Symptoms Update: Willow Cast is a 67 year old female, with medical history includes CHF, hypertension, DVT, asthma, dementia, diabetes, depression, CAD with coronary stent placement, history of one psychiatric admission "years back", reported history of depression, possible Alzheimer's dementia with behavioral disturbances and hallucinations, initially patient was admitted on the medical side for evaluation of Change in mental status and hallucinations, pt was medically cleared, now pt has POA, her daughter, pt daughter signed consent for tx. Pt was agitated on the medical site, was actively hallucinating, requires further evaluation and stabilization, meds adjustment. pt was seen At the day treatment area, patient presented to be confused, but remembered this writer technical publications name as well as was oriented in place, patient feels that now is May, patient was surprised that today is or summer. Medication management is complicated in the way that this writer technical publications cannot give increased dose of medication because risk of falls, Patient fell the other day, at the same time patient is psychotic, requires when necessary medication overnight because of patient's agitation. patient's daughter wants to take patient back home but from this writer technical publications perspective it is not safe discharge plan, Dr. Mickey remy also agreed that patient needs to be placed in the retirement, ethic/legals will be contacted. Prolonged conversation with (neurologist), pt has h/o celliac disease, was advised to start gluten free diet. as per Neurologist celliac dx for pts >60 years could be presented as dementia, pt might have improvement from Thiamine 100mg, +Namenda 10mg po bid, d/c Tramadol, dietitian consult, agreed that pt needs to be placed in NH. consult/input really appreciated. patient is on a gluten-free diet now. MMSE 12/21/17 pt tolerates meds well, no side effects observed or reported. 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 Medication Change: No (because risk of falls) Medical Record Reviewed: Yes Mental Status Examination - Cognitive Function Orientation: Person, Place Memory: Impaired (chronic, patient has dementia) Attention: Poor Concentration: Poor Association: Loose Fund of Knowledge: Poor - Mood Mood: Depressed, Anxious - Affect Affect: Constricted (and irritable) - Formal Thought Process Formal Thought Process: Hallucinations, Delusions, Paranoia, Loosening of associations - Suicidal Ideation Suicidal Ideation: No - Homicidal Ideation Homicidal Ideation: No Goal/Treatment Plan - Goal/Treatment Plan Need for Continued Stay: Remain at risks for inpatient hospitalization, Severe depression anxiety, Discharge may exacerbated symptoms, Failed transitioning, Severe functional impairment Progress Toward Problem(s) and Goals/Treatment Plan: Milieu/structure/supportive therapy Medical consult will be called seroquel increased 175mg po hs Wellbutrin 75mg po [place] family involved, possible NH placement, family meeting took place 12/25/17 namenda increased 10mg po bid thiamine 100mg po daily dietitian consult tramadol d/c consultation for discharge plan and social issues Family involvement Follow up on labs Will monitor closely Pt was educated about risk/benefits and alternatives of medications, coping strategies (safety plan, suicide prevention), relapse prevention, importance of follow up with psychiatrist and therapist, stay away from drugs/alcohol/smoking Estimated Date of D/C: 01/01/18
[2017-12-29] MEDS: Iron Complex Polysacch 150mg Cap PO SCH (09:22)
[2017-12-29] MEDS: Digoxin 125 mcg (0.125 mg) Tab PO SCH (13:10)
--- NOTE | 2017-12-29 15:25 | PCM.PYCHPN ---
Psychiatric Progress Note - Psychiatric Progress Note Patient seen today, length of contact: 30min Patient Chief Complaint: "what do you mean I cannot cook?, okay,okay, I will not cook" Problems Identified/Issues Discussed: Suicide/ homicide prevention, past psychiatric h/o, current psychiatric symptoms , medical problems, risk/benefits and alternatives of medications, medications compliance, coping strategies, substance abuse h/o, relapse prevention, importance of follow up with psychiatrist and therapist, discharge plan. had prolonged conversation with pt's POA daughter during the family meeting 12/25. Medical Problems: CHF, hypertension, DVT, asthma, dementia, diabetes, depression, CAD with coronary stent placement celliac dx Diagnostic Results: Lab Results 12/20/17 08:00: Hemoglobin A1c 5.8 12/20/17 08:00: Iron 36 L, TIBC 329, % Saturation 11 L 12/20/17 08:00: Triglycerides 61, Cholesterol 137, LDL Cholesterol Direct 46, HDL Cholesterol 58, Vitamin B12 318, Folate 10.8 Vital Signs Temp Pulse Resp BP Pulse Ox 12/20/17 09:12 64 99/54 L 12/20/17 06:43 98.3 F 64 19 99/54 L 12/19/17 08:57 68 112/63 12/19/17 06:53 97.9 F 66 20 112/63 12/19/17 06:50 97.9 F 66 20 12/18/17 17:02 97.9 F 85 17 129/66 96 12/18/17 16:58 16 Temp Pulse Resp BP Pulse Ox 96.9 F L 77 20 110/60 96 12/21/17 07:08 12/21/17 07:08 12/21/17 07:08 12/21/17 07:08 12/18/17 17:02 12/21/17 06:40 12/21/17 06:40 Lab Results 12/21/17 06:40: TSH 3rd Generation 1.84 12/21/17 06:40: Sodium 142, Potassium 4.5, Chloride 104, Carbon Dioxide 28, Anion Gap 15, BUN 22 H, Creatinine 1.1, Est GFR ( Amer) 60, Est GFR (Non- Af Amer) 50, Random Glucose 97, Calcium 9.4 12/21/17 06:40: WBC 3.2 L D, RBC 4.24, Hgb 12.9, Hct 38.5, MCV 90.8, MCH 30.4, MCHC 33.5, RDW 13.9, Plt Count 144, MPV 9.2 12/20/17 08:00: Hemoglobin A1c 5.8 12/20/17 08:00: Iron 36 L, TIBC 329, % Saturation 11 L 12/20/17 08:00: Triglycerides 61, Cholesterol 137, LDL Cholesterol Direct 46, HDL Cholesterol 58, Vitamin B12 318, Folate 10.8 Temp Pulse Resp BP Pulse Ox 98.7 F 47 L 20 114/62 96 12/25/17 07:14 12/25/17 07:14 12/25/17 07:14 12/25/17 07:14 12/18/17 17:02 Laboratory Results - last 72 hr 12/24/17 12/24/17 06:45 06:45 WBC 4.4 L D RBC 3.74 Hgb 11.1 L Hct 33.5 L MCV 89.6 MCH 29.7 MCHC 33.1 RDW 13.8 Plt Count 150 MPV 8.9 Sodium 142 Potassium 4.1 Chloride 105 Carbon Dioxide 27 Anion Gap 13 BUN 27 H Creatinine 1.1 Est GFR ( Amer) 60 Est GFR (Non-Af Amer) 50 Random Glucose 93 Calcium 9.1 DSM 5 Symptoms Update: Willow Cast is a 67 year old female, with medical history includes CHF, hypertension, DVT, asthma, dementia, diabetes, depression, CAD with coronary stent placement, history of one psychiatric admission "years back", reported history of depression, possible Alzheimer's dementia with behavioral disturbances and hallucinations, initially patient was admitted on the medical side for evaluation of Change in mental status and hallucinations, pt was medically cleared, now pt has POA, her daughter, pt daughter signed consent for tx. Pt was agitated on the medical site, was actively hallucinating, requires further evaluation and stabilization, meds adjustment. Second family meeting took place today 12/29/17: pt was seen at the treatment team room with social media assistant, pt's daughter, this typewriters functional tester to address d/c plan again. this typewriters functional tester as well as social media assistant educated daughter about patient condition and Neurologist assessment, pt's daughter was advised NH placement for the pt, patient daughter also was educated about wandering behavior, hallucinations, confusions, psychoiss, about risk of being lost in the community if patient will left unsupervised, patient daughter also was advised about forgetfulness, worsening of dementia, risk of disorganized behavior, injurious behavior as well as potential fire in the house because pt is very forgetful and confused, pt's daughter verbalized understanding, but wants to take pt back home. Pt's daughter said that she works jewelry department supervisor now, pt said she will talk to her family in [place] to help to supervise pt, pt also will be attending Adult day care center, meanwhile, pt's neighbour will watch after pt, daughter also applied for medicaid. pt's daughter was advised not to leave pt unsupervised. patient presented to be confused, but remembered this typewriters functional tester name as well as was oriented in place, pt was upset over her gluten free diet. ethic/legals was contacted 12/28/17, pt's POA could make decisions for the pt and take pt back home. Prolonged conversation with (neurologist), pt has h/o celliac disease, was advised to start gluten free diet. as per Neurologist celliac dx for pts >60 years could be presented as dementia, pt might have improvement from Thiamine 100mg, +Namenda 10mg po bid, d/c Tramadol, dietitian consult, agreed that pt needs to be placed in NH. consult/input really appreciated. patient is on a gluten-free diet now. MMSE 19/30 12/21/17 pt tolerates meds well, no side effects observed or reported. 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 Medication Change: Yes (seroquel increased) Medical Record Reviewed: Yes Mental Status Examination - Cognitive Function Orientation: Person, Place Memory: Impaired (chronic, patient has dementia) Attention: Poor (some improvement) Concentration: Poor (some improvement) Association: Loose (some improvement) Fund of Knowledge: Poor - Mood Mood: Depressed, Anxious - Affect Affect: Constricted (and irritable) - Formal Thought Process Formal Thought Process: Hallucinations, Delusions, Paranoia, Loosening of associations - Suicidal Ideation Suicidal Ideation: No - Homicidal Ideation Homicidal Ideation: No Goal/Treatment Plan - Goal/Treatment Plan Need for Continued Stay: Remain at risks for inpatient hospitalization, Severe depression anxiety, Discharge may exacerbated symptoms, Failed transitioning, Severe functional impairment Progress Toward Problem(s) and Goals/Treatment Plan: Milieu/structure/supportive therapy Medical consult will be called seroquel increased 200mg po hs Wellbutrin 75mg po [place] family involved, possible NH placement, family meeting took place 12/25/17 namenda increased 10mg po bid thiamine 100mg po daily dietitian consult tramadol d/c SW consultation for discharge plan and social issues Family involvement Follow up on labs Will monitor closely Pt was educated about risk/benefits and alternatives of medications, coping strategies (safety plan, suicide prevention), relapse prevention, importance of follow up with psychiatrist and therapist, stay away from drugs/alcohol/smoking Estimated Date of D/C: 01/01/18
--- NOTE | 2017-12-29 23:19 | PN ---
DATE: 12/29/2017 SUBJECTIVE: The patient is a 67-year-old female. The patient was seen and examined on the bedside on 12/29/2017 and looking comfortable. No nausea, vomiting, diarrhea. No hematuria or hematochezia. No swelling of the legs. No chest pain. No palpitation. No headache. No dizziness. PHYSICAL EXAMINATION: VITAL SIGNS: Temperature 98, pulse 83, blood pressure 128/73, respiratory rate 19. HEENT: Head normocephalic, atraumatic. Eyes PERRLA. Extraocular muscles intact. Conjunctivae clear. Nose patent. Mucous membrane moist. NECK: Supple. No carotid bruit. No JVD or thyromegaly. CHEST: Bilaterally symmetrical. HEART: S1 and S2 positive. LUNGS: Clear to auscultation. ABDOMEN: Soft. Bowel sounds positive. No organomegaly. EXTREMITIES: No edema. No cyanosis. NEUROLOGICAL: The patient is awake and alert. Moving all 4 extremities. No focal deficits. MEDICATIONS: Digoxin, Ativan, iron, Geodon, Inderal, Maalox, milk of magnesia, Namenda, Plavix, Seroquel, Tylenol, thiamine, Wellbutrin. LABORATORY DATA: White blood cells 5.5, hemoglobin 13.8, hematocrit 41.1, platelets 165. Sodium 145, potassium 4.7, BUN 22, creatinine 1.3. ASSESSMENT AND PLAN: Ms. Willow Cast is a 67-year-old lady with history of anemia, leukopenia, renal insufficiency, history of coronary artery disease, congestive heart failure, history of bipolar, history of gastric bypass, asthma, coronary artery disease, status post cardiac stents, B12 deficiency, history of gastric surgery, has dumping syndrome while having glycemia, is under psychiatrist care. Continue present treatment. Gastrointestinal and deep venous thrombosis prophylaxis. Repeat labs. We will follow up. Fariha Olvera MD
--- NOTE | 2017-12-30 00:32 | PN ---
DATE: 12/28/2017 SUBJECTIVE: The patient is a 67-year-old female. The patient was seen and examined on the bedside, looking comfortable. The patient was seen and examined on the bedside on 12/28/2017, looking comfortable. No nausea, vomiting, diarrhea. No hematuria or hematochezia. No swelling of the leg. No headache. No dizziness. No chest pain. No palpitation. PHYSICAL EXAMINATION: VITAL SIGNS: Temperature 96.9, pulse 77, respiratory rate 20, blood pressure 110/60, pulse oximetry 96. HEENT: Head normocephalic, atraumatic. Eyes PERRLA. Extraocular muscles intact. Conjunctivae clear. Nose patent. Mucous membrane moist. NECK: Supple. No carotid bruit. No JVD or thyromegaly. CHEST: Bilaterally symmetrical. HEART: S1 and S2 positive. LUNGS: Clear to auscultation. ABDOMEN: Soft. Bowel sounds positive. No organomegaly. EXTREMITIES: No edema. No cyanosis. NEUROLOGICAL: The patient is awake and alert. Moving all 4 extremities. No focal deficits. LABORATORY DATA: White blood cells 3.2, hemoglobin 2.9, hematocrit 38.5, platelets 144. Sodium 142, potassium 4.5, BUN 22, creatinine 1.1, glucose 97. ASSESSMENT AND PLAN: Ms. Willow Cast, 67-year-old lady with leukopenia, dementia with behavioral disturbances and psychosis, coronary artery disease, congestive heart failure, hypertension, history of deep venous thrombosis, diabetes mellitus, history of psychiatric admission, having active hallucinations, getting treatment in the Psychiatric Department. Family is aware of mother's condition. Appreciated Psychiatric input. Gastrointestinal, deep venous thrombosis prophylaxis. Repeat labs. We will follow up. Fariha Olvera MD
[2017-12-30] MEDS: Iron Complex Polysacch 150mg Cap PO SCH (08:52)
--- NOTE | 2017-12-30 09:17 | PCM.PYCHPN ---
Psychiatric Progress Note - Psychiatric Progress Note Patient seen today, length of contact: 30 min Problems Identified/Issues Discussed: Willow Cast is a 67 year old female, with history of depression, possible Alzheimer's dementia with behavioral disturbances and hallucinations who was initially admitted on the medical side for evaluation of Change in mental status and hallucinations. Patient was medically cleared, now pt has POA, her daughter who signed consent for psychiatric tx as patient was agitated and actively hallucinating on the medical site Patient is known to me from her prior admission as well as consultation on the medical floor. I reviewed recent notes. She has been unkempt, disoriented and labile over the past week. Patient has only a superficial understanding of her circumstances and this varies depending on her episodes of confusion. Patient still requires prn medications and a lot of redirection due to her confusion. Patient has been compliant with medications and denies any new side effects, discomfort or pain during my interviews. Patient denies depression or hallucinations at this time though endorsed them on the medical floor and has been observed responding to internal stimuli during acute episodes. She doesn't appear to be hallucinating during my visit however thought process is disorganized. Affect is constricted and she reports feeling tired today. Nursing reports indicate patient slept well last night. Insight is limited. Diagnostic Results: Alzheimer's dementia with behavioral disturbances and psychosis Medication Change: No ( ) Medical Record Reviewed: Yes Mental Status Examination - Cognitive Function Orientation: Person, Place Memory: Impaired (chronic, patient has dementia) Attention: Poor (some improvement) Concentration: Poor (some improvement) Association: Loose (some improvement) Fund of Knowledge: Poor - Mood Mood: Depressed, Anxious - Affect Affect: Constricted (and irritable) - Formal Thought Process Formal Thought Process: Hallucinations (denied), Delusions, Paranoia, Loosening of associations - Suicidal Ideation Suicidal Ideation: No - Homicidal Ideation Homicidal Ideation: No Goal/Treatment Plan - Goal/Treatment Plan Need for Continued Stay: Remain at risks for inpatient hospitalization, Severe depression anxiety, Discharge may exacerbated symptoms, Failed transitioning, Severe functional impairment Progress Toward Problem(s) and Goals/Treatment Plan: * c/w current tx and medications * Vitals reviewed and noted below: Selected Entries 12/29/17 12/30/17 16:13 07:13 Temperature 98 F 98.0 F Pulse Rate 83 84 Respiratory 20 Rate Blood Pressure 128/73 102/57 L * New weekend labs noted below: Laboratory Results - last 24 hr 12/24/17 12/24/17 06:45 06:45 WBC 4.4 L D RBC 3.74 Hgb 11.1 L Hct 33.5 L MCV 89.6 MCH 29.7 MCHC 33.1 RDW 13.8 Plt Count 150 MPV 8.9 Sodium 142 Potassium 4.1 Chloride 105 Carbon Dioxide 27 Anion Gap 13 BUN 27 H Creatinine 1.1 Est GFR ( Amer) 60 Est GFR (Non-Af Amer) 50 Random Glucose 93 Calcium 9.1 Estimated Date of D/C: 01/01/18
[2017-12-30] MEDS: Digoxin 125 mcg (0.125 mg) Tab PO SCH (14:07)
--- NOTE | 2017-12-30 15:06 | PCM.FALL ---
Post Fall Progress Note - Post Fall Fall Date: 12/30/17 Fall Time: 14:58 Description of Fall: Patient was walking with assistance and slipped and fell onto her L buttock. She did not lose consciousness or hit her head. - Post Fall Exam Vital Sign: Temp Pulse Resp BP Pulse Ox 98.0 F 84 20 102/57 L 96 12/30/17 07:13 12/30/17 07:13 12/30/17 07:13 12/30/17 07:13 12/18/17 17:02 Skull Exam: Negative for: Scalp wound, Scalp hematoma, Scalp depression, Ridge in skull Eye Exam: Positive for: Pupils equal, Pupils reactive Ear Exam: Negative for: Discharge, Bleeding Nose Exam: Negative for: Discharge, Bleeding Skin Exam: Negative for: Colour, Lacerations, Grazes, Bruising Mouth Exam: Negative for: Tongue bitten, Teeth dislodge Neck Exam: Negative for: Tenderness, Tingling, Weakness Spinal Exam: Negative for: Tenderness, Tingling, Weakness Chest Exam: Negative for: Difficulty breathing, Tenderness in collar bones, Tenderness in ribs Abdomen Exam: Negative for: Tenderness Pelvic Exam: Negative for: Tenderness Arm Exam: Negative for: Deformity Leg Exam: Negative for: Deformity Other pertinent findings: Mild L hip tenderness to palpation Impression/Plan: Patient was able to ambulate after the fall with assistance. Will do L Hip XRay to rule out fracture. Tylenol prn pain.
--- NOTE | 2017-12-30 17:39 | RAD ---
PROCEDURE: Left Hip X-ray Radiographs. HISTORY: code star (fall) COMPARISON: Comparison made with prior hip radiographs 12/14/2017. FINDINGS: BONES: No definitive evidence of acute displaced fracture nor dislocation. Left femoral head is appropriately located within the left acetabulum. Degenerative osteoarthritis of both hip joints left greater than right. JOINTS: As above. SOFT TISSUES: Normal. OTHER FINDINGS: None. IMPRESSION: No definitive evidence of acute displaced fracture nor dislocation. DJD both hip joints left greater than right. If symptoms persist or occult fracture suspected clinically recommend followup CT scan of the pelvis and left hip.
--- NOTE | 2017-12-31 02:50 | PN ---
DATE: 12/30/2017 The patient is a 67-year-old female. SUBJECTIVE: The patient was seen and examined on the bedside, walking around, today's event noted. No fever. No chills. No nausea, vomiting, or diarrhea. No hematuria or hematochezia. No headache or dizziness. No chest pain or palpitations. The patient was actually walking with assistance and slipped and fell onto her buttocks. She did not lose consciousness or hit her head. Looks like mechanical fall. PHYSICAL EXAMINATION: VITAL SIGNS: Temperature 98, pulse 55, respiratory rate 20, blood pressure 138/89, pulse oximetry noted . HEENT: Head is normocephalic and atraumatic. Eyes; PERRLA. Extraocular muscles are intact. Conjunctivae are clear. Nose is patent. Mucous membranes are moist. NECK: Supple. No carotid bruit. No JVD or thyromegaly. CHEST: Bilaterally symmetrical. HEART: S1 and S2 positive. LUNGS: Clear to auscultation. ABDOMEN: Soft. Bowel sounds are present. No organomegaly. EXTREMITIES: No edema. No cyanosis. NEUROLOGIC: The patient is awake and alert. Moving all 4 extremities. No focal deficit. MEDICATIONS: Ativan, digoxin, ferrous sulfate, Geodon, Inderal, Maalox, milk of magnesia, Namenda, Plavix, Seroquel, Tylenol, vitamin B1, and Wellbutrin. LABORATORY DATA: We do not have recent labs today, but I reviewed old labs. ASSESSMENT AND PLAN: Ms. Willow Cast is a 67-year-old lady with history of leukopenia, anemia, history of renal insufficiency, has history of fall, two days, mechanical fall. X-ray of hip and pelvis done, seen by house physician. No definite evidence of acute displaced fracture nor dislocation. Degenerative joint disease to both hip joints and left greater than the right, if symptoms persist , recommend followup CT scan of the pelvis and left hip. History of hypertension, hypercholesterolemia, congestive heart failure, history of gastric bypass, electrolyte imbalance, history of psychosis, coronary artery disease, deep vein thrombosis, diabetes mellitus, has psychiatric admission due to active hallucination, now getting treated by the psychiatrist. She will be on fall precautions. Nurses and staff are watching the patient. Repeat labs. We will follow up. Fariha Olvera MD [facility]
[2017-12-31 07:11] VITALS: TEMP 97.3
[2017-12-31 07:13] LABS: HEMOGLOBIN 11.3 g/dL (12.0-16.0); MEAN CORPUSCULAR HEMOGLOBIN 29.7 pg (25.0-35.0); MEAN CORPUSCULAR HGB CONC 33.3 g/dl (31.0-37.0); MEAN PLATELET VOLUME 8.8 fl (7.0-11.0); RBC 3.81 10^6/uL (3.5-6.1); RED CELL DISTRIBUTION WIDTH 13.6 % (11.5-14.5); WHITE BLOOD COUNT 3.3 10^3/ul (4.5-11.0)
[2017-12-31 07:33] LABS: CALCIUM 9.5 mg/dL (8.4-10.5)
[2017-12-31] MEDS: Iron Complex Polysacch 150mg Cap PO SCH (08:28)
--- NOTE | 2017-12-31 09:07 | PCM.PYCHPN ---
Psychiatric Progress Note - Psychiatric Progress Note Patient seen today, length of contact: 30 min Patient Chief Complaint: "tired, I don't feel like myself" Problems Identified/Issues Discussed: Willow Cast is a 67 year old female, with history of depression, possible Alzheimer's dementia with behavioral disturbances and hallucinations who was initially admitted on the medical side for evaluation of Change in mental status and hallucinations. Patient was medically cleared, now pt has POA, her daughter who signed consent for psychiatric tx as patient was agitated and actively hallucinating on the medical site Patient is known to me from her prior admission as well as consultation on the medical floor. I reviewed recent notes. She has been unkempt, disoriented and labile over the past week. Patient has only a superficial understanding of her circumstances and this varies depending on her episodes of confusion and oppositional behavior. Patient still requires prn medications and a lot of redirection due to her confusion. Patient has been compliant with medications and denies any new side effects, discomfort or pain during my interviews. Patient denies depression or hallucinations at this time though endorsed them on the medical floor and has been observed responding to internal stimuli during acute episodes. She doesn't appear to be hallucinating during my visit however thought process is disorganized. Affect is constricted and patient again reports that feels tired and "not herself". Denies depression or SI. Nursing reports indicate patient slept well last night. Insight is limited. Diagnostic Results: Alzheimer's dementia with behavioral disturbances and psychosis Medication Change: No ( ) Medical Record Reviewed: Yes Mental Status Examination - Cognitive Function Orientation: Person, Place Memory: Impaired (chronic, patient has dementia) Attention: Poor (some improvement) Concentration: Poor (some improvement) Association: Loose (some improvement) Fund of Knowledge: Poor - Mood Mood: Depressed, Anxious - Affect Affect: Constricted (and irritable) - Formal Thought Process Formal Thought Process: Hallucinations (denied), Delusions, Paranoia, Loosening of associations - Suicidal Ideation Suicidal Ideation: No - Homicidal Ideation Homicidal Ideation: No Goal/Treatment Plan - Goal/Treatment Plan Need for Continued Stay: Remain at risks for inpatient hospitalization, Severe depression anxiety, Discharge may exacerbated symptoms, Failed transitioning, Severe functional impairment Progress Toward Problem(s) and Goals/Treatment Plan: * c/w current tx and medications * Appreciate f/u by Dr. Olvera on 12/30/17~Patient slipped and fell on her left buttock without LOC or head injury. Plan to do L Hip XRay to rule out fracture. Tylenol prn pain. * Vitals reviewed and noted below: 12/30/17 12/30/17 07:13 16:00 Temperature 98.0 F Pulse Rate 84 85 Respiratory 20 Rate Blood Pressure 102/57 L 132/89 * Current weekend labs noted below: Laboratory Results - last 24 hr 12/31/17 12/31/17 06:30 06:30 WBC 3.3 L D RBC 3.81 Hgb 11.3 L D Hct 33.9 L MCV 89.0 MCH 29.7 MCHC 33.3 RDW 13.6 Plt Count 150 MPV 8.8 Sodium 141 Potassium 4.0 Chloride 102 Carbon Dioxide 28 Anion Gap 14 BUN 15 Creatinine 1.1 Est GFR ( Amer) 60 Est GFR (Non-Af Amer) 50 Random Glucose 90 Calcium 9.5 * Prior weekend labs noted below: Laboratory Results - last 24 hr 12/24/17 12/24/17 06:45 06:45 WBC 4.4 L D RBC 3.74 Hgb 11.1 L Hct 33.5 L MCV 89.6 MCH 29.7 MCHC 33.1 RDW 13.8 Plt Count 150 MPV 8.9 Sodium 142 Potassium 4.1 Chloride 105 Carbon Dioxide 27 Anion Gap 13 BUN 27 H Creatinine 1.1 Est GFR ( Amer) 60 Est GFR (Non-Af Amer) 50 Random Glucose 93 Calcium 9.1 Estimated Date of D/C: 01/01/18
[2017-12-31] MEDS: Digoxin 125 mcg (0.125 mg) Tab PO SCH (15:21)
--- NOTE | 2018-01-01 03:18 | PN ---
DATE: 12/31/2017 SUBJECTIVE: The patient is 67-year-old female. The patient is looking comfortable. No nausea, vomiting or diarrhea. No hematuria or hematochezia, but little bit sleepy. Has history of fall yesterday and so we are afraid she can get fall also because she is looking sleepy and fatigued. I spoke to the nurse, Shai, and put order for one-to-one. No fever, no chills. No headache, no dizziness. No chest pain, no palpitations. PHYSICAL EXAMINATION: VITAL SIGNS: Temperature 97.3, pulse 76, respiratory rate 18, blood pressure 122/70. HEENT: Head normocephalic, atraumatic. Eyes, PERRLA. Extraocular muscles intact. Conjunctivae clear. Nose patent. Mucous membrane moist. NECK: Supple. No carotid bruit, JVD, or thyromegaly. CHEST: Bilaterally symmetrical. HEART: S1, S2 positive. LUNGS: Clear to auscultation. ABDOMEN: Soft. Bowel sounds present. No organomegaly. EXTREMITIES: No edema, no cyanosis. NEUROLOGICAL: The patient is awake, alert, moving all 4 extremities. No focal deficits. LABORATORY DATA: White blood cell is 3.3, hemoglobin 11.3, hematocrit 33.9, platelets 150. Sodium 141, potassium 4, BUN 15, creatinine 1.1. MEDICATIONS: Ativan, digoxin, Geodon, Inderal, milk of magnesia, Namenda, Plavix, Seroquel, Tylenol. ASSESSMENT AND PLAN: Ms. Willow Cast is a 67-year-old lady with leukopenia, anemia, history of renal insufficiency, improved, hypoglycemia, history of gastric bypass in the remote past, history of fall yesterday. Today she was looking very lethargic and sleepy, I will put again one-to-one. History of coronary artery disease, electrolyte imbalance, history of leukopenia, anemia improved, degenerative disease of both hips, left greater than the right, history of hypertension, hypercholesterolemia, congestive heart failure, kyphosis, coronary artery disease, deep vein thrombosis and diabetes mellitus. Has multiple psych admissions, now getting treatment from the psychiatrist in [facility] Psych department for hallucinations and delusions. Medically, she is doing better. Repeat labs. We will follow. Fariha Olvera MD [facility] # [id number] [facility]
[2018-01-01] MEDS: Iron Complex Polysacch 150mg Cap PO SCH (11:30)
[2018-01-01] MEDS: Digoxin 125 mcg (0.125 mg) Tab PO SCH (13:44)
[2018-01-01 15:36] LABS: BASO # 0.01 K/mm3 (0.0-2.0); BASO % 0.2 % (0.0-3.0); EOS % 0.8 % (1.5-5.0); GRAN % 75.3 % (50.0-68.0); HEMOGLOBIN 13.9 g/dL (12.0-16.0); LYMPH % 18.8 % (22.0-35.0); MEAN CELL VOLUME 91.8 fl (80.0-105.0); MEAN CORPUSCULAR HEMOGLOBIN 30.8 pg (25.0-35.0); MEAN CORPUSCULAR HGB CONC 33.6 g/dl (31.0-37.0); MEAN PLATELET VOLUME 9.4 fl (7.0-11.0); MONO # 0.3 (0.1-0.6); MONO % 4.9 % (1.0-6.0); RBC 4.51 10^6/uL (3.5-6.1); RED CELL DISTRIBUTION WIDTH 13.7 % (11.5-14.5); WHITE BLOOD COUNT 5.3 10^3/ul (4.5-11.0)
[2018-01-01 15:54] LABS: ALB/GLOB RATIO 1.1 (1.1-1.8); ALBUMIN 4.2 g/dL (3.0-4.8); CALCIUM 9.6 mg/dL (8.4-10.5)
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
[2018-01-01 18:49] LABS: URINE BILIRUBIN NEGATIVE (NEGATIVE); URINE BLOOD NEGATIVE (NEGATIVE); URINE GLUCOSE (UA) NEGATIVE (NEGATIVE); URINE LEUKOCYTE ESTERASE NEGATIVE Leu/uL (NEGATIVE); URINE PROTEIN NEGATIVE mg/dL (<30 mg/dL); URINE UROBILINOGEN 0.2 E.U./dL (<1 E.U./dL)
[2018-01-01 18:51] LABS: URINE APPEARANCE CLEAR (CLEAR); URINE COLOR YELLOW (YELLOW)
--- NOTE | 2018-01-02 05:54 | PN ---
DATE: 01/01/2018 SUBJECTIVE: The patient is a 67-year-old female. The patient was seen and examined at bedside on 01/01/2018. Sleepy, arousable. No fever, no chills. No nausea, vomiting, diarrhea. No hematuria, no hematochezia. No swelling of the leg. No headache, no dizziness. PHYSICAL EXAMINATION: VITAL SIGNS: Temperature is 97.3, pulse 82, blood pressure 109/74, respiratory rate 18. HEENT: Head normocephalic, atraumatic. Eyes PERRLA. Extraocular muscles intact. Conjunctivae clear. No e patent. Mucous membrane moist. NECK: Supple. No carotid bruit. No JVD or thyromegaly. CHEST: Bilaterally symmetrical. HEART: S1, S2 positive. LUNGS: Clear to auscultation. ABDOMEN: Soft. Bowel sounds present. No organomegaly. EXTREMITIES: No edema, no cyanosis. NEUROLOGICAL: The patient is awake, alert, moving all 4 extremities. No focal deficits. MEDICATIONS: Ativan, digoxin, Ferrex, Geodon, Inderal, Maalox, milk of magnesia, Namenda, Plavix, Seroquel, Tylenol, B1, Wellbutrin. LABORATORY DATA: White blood cells 5.3, hemoglobin 13.9, hematocrit 41.1, platelets 153. Sodium 142, potassium 4.7, BUN 19, creatinine 1.3, glucose 143. ASSESSMENT AND PLAN: Ms. Willow Cast is a 67-year-old lady with history of leukopenia improved, anemia improved, renal insufficiency improved, admitted in the psych floor for her active hallucinations and delusions, depression and anxiety, history of congestive heart failure, hypertension, history of deep venous thrombosis, asthma, dementia, coronary artery disease with coronary artery stent placement, celiac disease. The patient is under the care of Dr. Carla Wilkinson. Gastric and deep venous thrombosis prophylaxis. Repeat labs. We will follow up. Fariha Olvera MD
[2018-01-02 07:09] VITALS: BP 126/74; PULSE 76; RESP 20
[2018-01-02] MEDS: Iron Complex Polysacch 150mg Cap PO SCH (09:44)
[2018-01-02] MEDS: Digoxin 125 mcg (0.125 mg) Tab PO SCH (13:15)
[2018-01-02 13:24] VITALS: PULSE 84
--- NOTE | 2018-01-02 19:43 | PN ---
DATE: 01/02/2018 SUBJECTIVE: Patient is a 67-year-old female. The patient was seen and examined at the bedside on 01/02/2018, was sitting in the activity room, feeling better. No nausea, vomiting, diarrhea. No hematuria, hematochezia. No swelling of the leg. No chest pain, no palpitations. No headache, no dizziness. PHYSICAL EXAMINATION: VITAL SIGNS: Temperature 97.3, pulse 73, blood pressure 110 /76, respiratory rate 18. HEENT: Head: Normocephalic, atraumatic. Eyes: PERRLA. Extraocular muscles intact. Conjunctivae clear. Nose: Patent. Mucous membrane moist. NECK: Supple. No carotid bruit. No JVD or thyromegaly. CHEST: Bilaterally symmetrical. HEART: S1, S2 positive. LUNGS: Clear to auscultation. ABDOMEN: Soft. Bowel sounds present. No organomegaly. EXTREMITIES: No edema, no cyanosis. NEUROLOGICAL: Patient is awake, alert, moving all 4 extremities. No focal deficits. MEDICATIONS: Ativan, digoxin, iron, Geodon, Maalox, Plavix, Seroquel, Tylenol, thiamine, Wellbutrin. LABORATORY DATA: White blood cells 5.3, hemoglobin 13.9, hematocrit 41.4, platelets 153. Sodium 142, potassium 4.7, BUN 19, creatinine 1.3, glucose 143. ASSESSMENT AND PLAN: Ms. Willow Cast is a 67-year-old lady with history of leukopenia, anemia, renal insufficiency improved, history of gastric bypass in the remote past, history of hypoglycemia may be dumping syndrome, has admission in the psych floor with hallucination, delusions, depression, and anxiety. History of congestive heart failure, hypertension, deep vein thrombosis, asthma, dementia, coronary artery disease, coronary artery stent placement, celiac disease. Patient in the psych floor under the care of Dr. Carla Wilkinson. Gastrointestinal and deep venous thrombosis prophylaxis given. Discussion done with the staff, repeat labs, we will follow up. Fariha Olvera MD [facility]
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
== END 2018-01-02 21:20 | disposition home or self-care (01) | DRG 57 ==
LOC: PSYC 16:45
PROVIDERS: ADMIT Psychiatry & Neurology Psychiatry; ATTEND Psychiatry & Neurology Psychiatry
PROC: GZ3ZZZZ Medication Management (ICD-10-PCS; principal; 2017-12-18)
DX: G30.9 Alzheimer's disease, unspecified (principal); F02.81 Dementia in other diseases classified elsewhere, unspecified severity, with behavioral disturbance; F32.9 Major depressive disorder, single episode, unspecified; I11.0 Hypertensive heart disease with heart failure; I50.9 Heart failure, unspecified; I25.10 Atherosclerotic heart disease of native coronary artery without angina pectoris; F41.9 Anxiety disorder, unspecified; E11.649 Type 2 diabetes mellitus with hypoglycemia without coma; J45.909 Unspecified asthma, uncomplicated; E53.8 Deficiency of other specified B group vitamins; K91.1 Postgastric surgery syndromes; D50.9 Iron deficiency anemia, unspecified; K90.0 Celiac disease; E78.00 Pure hypercholesterolemia, unspecified; M16.0 Bilateral primary osteoarthritis of hip; M40.209 Unspecified kyphosis, site unspecified; N28.9 Disorder of kidney and ureter, unspecified; Z91.81 History of falling; Z86.718 Personal history of other venous thrombosis and embolism; Z98.84 Bariatric surgery status; Z95.5 Presence of coronary angioplasty implant and graft

== ENCOUNTER 2018-01-07 19:26 | Observation (INO) | payer MEDICARE, OTHER ==
[2018-01-07 19:26] VITALS: BMI 25.0
[2018-01-07 21:08] LABS: URINE BILIRUBIN NEGATIVE (NEGATIVE); URINE BLOOD NEGATIVE (NEGATIVE); URINE GLUCOSE (UA) NEGATIVE (NEGATIVE); URINE LEUKOCYTE ESTERASE SMALL Leu/uL (NEGATIVE); URINE PROTEIN TRACE mg/dL (<30 mg/dL); URINE UROBILINOGEN 0.2 E.U./dL (<1 E.U./dL)
[2018-01-07 21:20] LABS: URINE APPEARANCE CLOUDY (CLEAR); URINE COLOR YELLOW (YELLOW)
[2018-01-07 21:24] LABS: URINE RBC 0 - 2 /hpf (0-2)
[2018-01-07 21:25] LABS: URINE BACTERIA FEW (NEG)
[2018-01-07 21:35] LABS: BARBITURATES, UR NEGATIVE (NEGATIVE); BENZODIAZEPINES, UR NEGATIVE (NEGATIVE); OPIATES, UR NEGATIVE (NEGATIVE); PHENCYCLIDINE, UR NEGATIVE (NEGATIVE)
[2018-01-07 21:42] LABS: BASO # 0.01 K/mm3 (0.0-2.0); BASO % 0.3 % (0.0-3.0); EOS # 0.1 (0.0-0.7); EOS % 1.3 % (1.5-5.0); GRAN # 2.44 (1.4-6.5); GRAN % 61.7 % (50.0-68.0); HEMOGLOBIN 12.2 g/dL (12.0-16.0); LYMPH # 1.1 (1.2-3.4); LYMPH % 28.6 % (22.0-35.0); MEAN CELL VOLUME 92.6 fl (80.0-105.0); MEAN CORPUSCULAR HEMOGLOBIN 30.1 pg (25.0-35.0); MEAN CORPUSCULAR HGB CONC 32.5 g/dl (31.0-37.0); MEAN PLATELET VOLUME 9.5 fl (7.0-11.0); MONO # 0.3 (0.1-0.6); MONO % 8.1 % (1.0-6.0); RBC 4.05 10^6/uL (3.5-6.1); RED CELL DISTRIBUTION WIDTH 13.7 % (11.5-14.5)
[2018-01-07 21:58] LABS: ACETAMINOPHEN < 10.0 ug/ml (10.0-20.0); SALICYLATE < 1 mg/dL (2.0-20.0)
[2018-01-07 22:01] LABS: ALB/GLOB RATIO 1.2 (1.1-1.8); ALBUMIN 4.2 g/dL (3.0-4.8); CALCIUM 9.3 mg/dL (8.4-10.5)
[2018-01-07] MEDS ORDERED: Dextrose 50% SYRINGE Inj (50 ml) IVP STA (22:49)
[2018-01-07] MEDS ORDERED: Dextrose 50% SYRINGE Inj (50 ml) ONE (22:51)
--- NOTE | 2018-01-07 23:05 | ED PDOC ---
Arrival/HPI - General Chief Complaint: Trauma Time Seen by Provider: 01/07/18 19:49 Historian: Patient, Family - History of Present Illness Narrative History of Present Illness (Text): 01/07/18 20:15 67 year old female, whose past medical history includes dementia and depression , who presents to the Emergency department brought in status post mechanical trip and fall today. Patient states she was walking and the sidewalk was uneven causing the patient to trip and fall forward. Patient states she watched it happen and notes patient hit her forehead on the concrete, denies any loss of consciousness but states patient was confused after the incident. On arrival to Emergency department, patient denies any dizziness, headache, weakness, chest pain, or abdominal pain. Patient notes a slight burning sensation to abrasions on lower legs. Patient states she has also been feeling depressed, feels that her granddaughter hates her and it is difficulty to live at home with her daughter. Symptom Onset: Gradual Symptom Course: Unchanged Activities at Onset: Light Context: Home Past Medical History - Provider Review Nursing Documentation Reviewed: Yes - Past History Past History: No Previous - Infectious Disease Hx of Infectious Diseases: None - Tetanus Immunization Tetanus Immunization: Unknown - Reproductive Menopause: Yes - Past Medical History Past Medical History: No Previous - Cardiac Hx Cardiac Disorders: Yes Hx Congestive Heart Failure: Yes Hx Hypertension: Yes - Pulmonary Hx Respiratory Disorders: Yes Hx Asthma: Yes Hx Chronic Obstructive Pulmonary Disease (COPD): Yes Hx Pneumonia: Yes - Neurological Hx Neurological Disorder: Yes Hx Alzheimer's Disease: Yes Hx Dementia: Yes Hx Transient Ischemic Attacks (TIA): Yes - HEENT Hx HEENT Disorder: Yes Other/Comment: glasses - Renal Hx Renal Disorder: No - Endocrine/Metabolic Hx Endocrine Disorders: Yes Hx Diabetes Mellitus Type 2: Yes - Hematological/Oncological Hx Blood Disorders: Yes Hx Anemia: Yes - Integumentary Hx Dermatological Disorder: No - Musculoskeletal/Rheumatological Hx Falls: No - Gastrointestinal Hx Gastrointestinal Disorders: Yes Hx Gastroesophageal Reflux: Yes - Genitourinary/Gynecological Hx Genitourinary Disorders: Yes Hx Urinary Tract Infection: Yes - Psychiatric Hx Psychophysiologic Disorder: Yes Hx Anxiety: Yes Hx Depression: Yes Hx Substance Use: No - Past Surgical History Past Surgical History: No Previous - Surgical History Hx Cardiac Catheterization: Yes Hx Coronary Stent: Yes - Anesthesia Hx Anesthesia: Yes Hx Anesthesia Reactions: No Hx Malignant Hyperthermia: No - Suicidal Assessment Feels Threatened In Home Enviroment: No Family/Social History - Physician Review Nursing Documentation Reviewed: Yes Family/Social History: Unknown Family HX Smoking Status: Never Smoked Hx Alcohol Use: No Hx Substance Use: No Hx Substance Use Treatment: No Allergies/Home Meds Allergies/Adverse Reactions: Allergies gluten Allergy (Verified 12/18/17 23:05) DIARRHEA Review of Systems - Physician Review All systems were reviewed & negative as marked: Yes - Review of Systems Constitutional: Normal. absent: Fevers Eyes: Normal ENT: Normal Respiratory: Normal. absent: SOB, Cough Cardiovascular: Normal. absent: Chest Pain Gastrointestinal: Normal. absent: Abdominal Pain, Diarrhea, Nausea, Vomiting Genitourinary Female: Normal. absent: Dysuria, Frequency, Hematuria, Urine Output Changes Musculoskeletal: Normal. absent: Back Pain, Neck Pain Skin: Other (+lower extremity abrasion) Neurological: Normal. absent: Headache, Dizziness Endocrine: Normal Hemo/Lymphatic: Normal Psychiatric: Normal Physical Exam Vital Signs Reviewed: Yes Vital Signs Temp Pulse Resp BP Pulse Ox 01/07/18 19:45 98.3 F 82 18 126/69 100 Temperature: Afebrile Blood Pressure: Normal Pulse: Regular Respiratory Rate: Normal Appearance: Positive for: Well-Appearing, Non-Toxic, Comfortable Pain Distress: None Mental Status: Positive for: Alert and Oriented X 3 Finger Stick Blood Glucose: 81 - Systems Exam Head: Present: Atraumatic, Normocephalic Pupils: Present: PERRL Extroacular Muscles: Present: EOMI Conjunctiva: Present: Normal Mouth: Present: Moist Mucous Membranes Neck: Present: Normal Range of Motion (Full ROM). No: Meningeal Signs, MIDLINE TENDERNESS, Paraspinal Tenderness Respiratory/Chest: Present: Clear to Auscultation, Good Air Exchange. No: Respiratory Distress, Accessory Muscle Use, Tender to Palpation, Other (No crepitus) Cardiovascular: Present: Regular Rate and Rhythm, Normal S1, S2. No: Murmurs Abdomen: No: Tenderness, Distention, Peritoneal Signs Upper Extremity: Present: Normal Inspection. No: Cyanosis, Edema Lower Extremity: Present: Normal Inspection, NORMAL PULSES, Normal ROM, Neurovascularly Intact, Capillary Refill < 2 s, Other (Superficial abrasion to right knee and left anterior lower leg, with no active bleeding). No: Edema, Cyanosis, Tenderness, Swelling, Erythema, Deformity, Temperature Abnormalties Neurological: Present: GCS=15, CN II-XII Intact, Speech Normal Skin: Present: Warm, Dry, Normal Color. No: Rashes Psychiatric: Present: Alert, Oriented x 3 Medical Decision Making ED Course and Treatment: 01/07/18 20:15 Impression: 67 year old female brought in s/p mechanical trip and fall. Plan: -- CT Head w/o contrast -- EKG -- CXR -- CBC, CMP, alcohol level -- Urinalysis, urine drug screen, urine cultures -- Reassess and disposition Progress Notes: 01/07/18 23:00 Called to bedside. RN states pt was behaving strangely, pt's blood glucose level was 65. Given 1 amp of D50. 01/07/18 23:22 pt completed eating a tray of food; repeat glucose; 68, pt still acting altered. pt with hx of dementia and hx of refractory hypoglycemia. pt started on D10 drip at 80cc/hr. case discussed with dr. olvera; will admit observational status for refractory hypoglycemia. impression; refractory hypoglycemia admit observational status to tele - Lab Interpretations Lab Results: 01/07/18 21:06 01/07/18 21:06 Lab Results 01/07/18 21:06: Alcohol, Quantitative < 10 01/07/18 21:06: Salicylates < 1 L, Acetaminophen < 10.0 L 01/07/18 21:06: Sodium 146, Potassium 4.5, Chloride 106, Carbon Dioxide 29, Anion Gap 15, BUN 28 H, Creatinine 1.4 H, Est GFR ( Amer) 45, Est GFR ( Non-Af Amer) 38, Random Glucose 86, Calcium 9.3, Total Bilirubin 0.2, AST 32, ALT 31, Alkaline Phosphatase 80, Total Protein 7.6, Albumin 4.2, Globulin 3.4, Albumin/Globulin Ratio 1.2 01/07/18 21:06: WBC 4.0 L D, RBC 4.05, Hgb 12.2, Hct 37.5, MCV 92.6, MCH 30.1, MCHC 32.5, RDW 13.7, Plt Count 142, MPV 9.5, Gran % 61.7, Lymph % (Auto) 28.6, [place] % (Auto) 8.1 H, Eos % (Auto) 1.3 L, Baso % (Auto) 0.3, Gran # 2.44, Lymph # (Auto) 1.1 L, [place] # (Auto) 0.3, Eos # (Auto) 0.1, Baso # (Auto) 0.01 01/07/18 21:00: Urine Opiates Screen Negative, Urine Methadone Screen Negative, Ur Barbiturates Screen Negative, Ur Phencyclidine Scrn Negative, Ur Amphetamines Screen Negative, U Benzodiazepines Scrn Negative, U Oth Cocaine Metabols Negative, U Cannabinoids Screen Negative 01/07/18 21:00: Urine Color Yellow, Urine Appearance Cloudy, Urine pH 6.0, Ur Specific [place] >= 1.030, Urine Protein Trace H, Urine Glucose (UA) Negative, Urine Ketones Trace H, Urine Blood Negative, Urine Nitrate Negative, Urine Bilirubin Negative, Urine Urobilinogen 0.2, Ur Leukocyte Esterase Small H, Urine RBC 0 - 2, Urine WBC 5 - 10, Ur Epithelial Cells 10 - 12, Urine Bacteria Few I have reviewed the lab results: Yes - RAD Interpretation Radiology Orders: 01/07/18 20:13 HEAD W/O CONTRAST [CT] Stat 01/07/18 20:15 CHEST PORTABLE [RAD] Stat Medical Office Asst: ED Physician, Radiologist - Medication Orders Current Medication Orders: Dextrose (Dextrose 10% In Water) 500 mls @ 80 mls/hr IV .[id number] JOANNE Discontinued Medications Dextrose (Dextrose 50% Inj) 50 ml IVP STAT STA Stop: 01/07/18 22:50 Last Admin: 01/07/18 22:58 Dose: 50 ml IVP Administration Document 01/07/18 22:58 FROILAN (Rec: 01/07/18 22:58 FROILAN [facility]) Charges for Administration # of IVP Administrations 1 - Scribe Statement The provider has reviewed the documentation as recorded by the Scribraúl Diaz Provider Scribe Attestation: All medical record entries made by the Scribe were at my direction and personally dictated by me. I have reviewed the chart and agree that the record accurately reflects my personal performance of the history, physical exam, medical decision making, and the department course for this patient. I have also personally directed, reviewed, and agree with the discharge instructions and disposition. Disposition/Present on Arrival - Present on Arrival Any Indicators Present on Arrival: No History of DVT/PE: No History of Uncontrolled Diabetes: No Urinary Catheter: No History of Decub. Ulcer: No History Surgical Site Infection Following: None - Disposition Have Diagnosis and Disposition been Completed?: Yes Diagnosis: Hypoglycemia Disposition: HOSPITALIZED Disposition Time: 00:33 Patient Plan: Observation Condition: FAIR Referrals: Fariha Olvera MD [Primary Care Provider] - Follow up with primary Forms: [employer] ([place])
[2018-01-08] MEDS ORDERED: Dextrose 50% SYRINGE Inj (50 ml) IVP STA (00:28)
[2018-01-08] MEDS ORDERED: Dextrose 50% SYRINGE Inj (50 ml) IVP ONE (05:55)
--- NOTE | 2018-01-08 07:45 | CT ---
PROCEDURE: CT HEAD WITHOUT CONTRAST. HISTORY: fall/head injury COMPARISON: 12/12/2017 TECHNIQUE: Axial computed tomography images were obtained through the head/brain without intravenous contrast. Radiation dose: Total exam DLP = 795.62 mGy-cm. This CT exam was performed using one or more of the following dose reduction techniques: Automated exposure control, adjustment of the mA and/or kV according to patient size, and/or use of iterative reconstruction technique. FINDINGS: HEMORRHAGE: No intracranial hemorrhage. BRAIN: No mass effect or edema. Cortical atrophy, periventricular small vessel disease. VENTRICLES: Unremarkable. No hydrocephalus. CALVARIUM: Unremarkable. PARANASAL SINUSES: Unremarkable as visualized. No significant inflammatory changes. MASTOID AIR CELLS: Unremarkable as visualized. No inflammatory changes. OTHER FINDINGS: None. IMPRESSION: No acute intracranial abnormalities. No significant findings to account for the clinical presentation. No significant interval change compared to the prior examination(s). Concordant results (preliminary interpretation) provided by [facility]. Procedure Completed: 21:30 Preliminary (vRad) Report: Dictated and Authenticated: 22:19 Final Interpretation: 07:42 January 08, 2018.
--- NOTE | 2018-01-08 09:49 | CARD ---
APPROVED REPORT EKG Measurement Heart [id number] <Conclusion> Normal sinus rhythm Septal infarct, age undetermined NSSTW changes No change
--- NOTE | 2018-01-08 11:16 | RAD ---
HISTORY: PEs eval COMPARISON: 12/12/2017 FINDINGS: LUNGS: No active pulmonary disease. PLEURA: No significant pleural effusion identified, no pneumothorax apparent. CARDIOVASCULAR: No radiographic findings to suggest acute or significant cardiovascular disease. OSSEOUS STRUCTURES: No significant abnormalities. VISUALIZED UPPER ABDOMEN: Normal. OTHER FINDINGS: None. IMPRESSION: No active disease. No significant interval change compared to the prior examination(s).
[2018-01-09 07:50] LABS: HEMOGLOBIN 12.1 g/dL (12.0-16.0); MEAN CELL VOLUME 88.9 fl (80.0-105.0); MEAN CORPUSCULAR HEMOGLOBIN 29.8 pg (25.0-35.0); MEAN CORPUSCULAR HGB CONC 33.5 g/dl (31.0-37.0); MEAN PLATELET VOLUME 9.3 fl (7.0-11.0); RBC 4.06 10^6/uL (3.5-6.1); WHITE BLOOD COUNT 3.8 10^3/ul (4.5-11.0)
[2018-01-09 07:53] VITALS: O2SAT 100
[2018-01-09 08:11] LABS: BLOOD UREA NITROGEN 18 mg/dL (7-21); CALCIUM 9.1 mg/dL (8.4-10.5); GFR AFRICAN-AMERICAN > 60; GFR NON-AFRICAN AMERICAN > 60; HDL CHOLESTEROL 58 mg/dL (29-60)
[2018-01-09 08:15] LABS: LDL CHOLESTEROL 53 mg/dL (0-129)
--- NOTE | 2018-01-09 08:23 | HP ---
DATE OF EXAM: 01/08/2018 The patient is a 67-year-old female. Patient was seen and examined at the bedside on 01/08/2018. CHIEF COMPLAINT: Fall, altered mental status, fatigue. HISTORY OF PRESENT ILLNESS: Ms. Willow Cast is a 67-year-old female with past medical history of dementia and depression, came to the emergency department, brought in status post mechanical fall and patient states that she was walking and sidewalk was uneven causing the patient to trip and fall forward. Patient states that she watched it happen and noticed it. Patient hit her forehead on the concrete. Denies any loss of consciousness but states patient was confused after the incident. On arrival to the emergency department, patient denies any dizziness, headache, weakness, chest pain or abdominal pain. Patient noticed a slight burning sensation to the abrasion of the lower legs. Patient states that she has also been feeling depressed, feels that her granddaughter hates her and it is difficult to live at home with her daughter. I saw the patient in the telemetry. She is on one-to-one. PAST MEDICAL HISTORY: Congestive heart failure, hypertension, asthma, COPD, pneumonia, dementia, TIA, diabetes mellitus, anemia, anxiety, depression, coronary artery stents. FAMILY HISTORY: Father and mother, noncontributory. HABITS: Never smoked. No drug. No ethanol. ALLERGIES: PATIENT IS ALLERGIC WITH GLUTEN AND GIVES DIARRHEA. REVIEW OF SYSTEMS: Patient was seen and examined at the bedside in the telemetry. She is on one-to-one. She is confused, repeating sentences. According to patient, she has diarrhea but according to staff did not have proof of that. Absent dysuria, frequency, hematuria, urinary output changes. Absent abdominal pain, nausea, vomiting. No chest pain. No shortness of breath. No coughing. No back pain. Has extremities abrasions. No headaches or dizziness. PHYSICAL EXAMINATION: VITAL SIGNS: Temperature 98.3, pulse 82, respiratory rate 18, blood pressure 127/69, pulse oximetry 100%. HEENT: Head: Normocephalic, atraumatic. Eyes: PERRLA. Extraocular muscles intact. Conjunctivae clear. Nose patent. Mucous membrane moist. NECK: Supple. No carotid bruit, JVD or thyromegaly. CHEST: Bilaterally symmetrical. HEART: S1, S2 positive. LUNGS: Clear to auscultation. ABDOMEN: Soft. Bowel sounds present. No organomegaly. EXTREMITIES: No edema, no cyanosis. NEUROLOGICAL: The patient is awake, alert, moving all 4 extremities. No focal deficits. LABORATORY DATA: White blood cell 4, hemoglobin 12.2, hematocrit 37.5, platelets 142. Sodium 146, potassium 4.5, BUN 20, creatinine 1.4. Glucose 86. ASSESSMENT AND PLAN: Ms. Willow Cast is a 67-year-old lady with the leukopenia, renal insufficiency, altered mental status, mechanical fall, leg abrasions, found the patient has hypoglycemia. Patient has history of gastric bypass surgery, sometimes she is getting attacks of hypoglycemia, rule out dumping syndrome. CAT scan of the head was done, shows no acute intracranial abnormalities. No significant findings to account for the clinical presentation. No significant interval changes compared to the prior examination. History of congestive heart failure, hypertension, history of depression, history of Psychiatric admissions. We will continue present treatment. We will call Psychiatric consult. Gastrointestinal and deep venous thrombosis prophylaxis. Repeat labs. We will follow up. Continue one-to-one. Fariha Olvera MD
[2018-01-09] MEDS ORDERED: Iron Complex Polysacch 150mg Cap PO SCH (10:00)
[2018-01-09 11:55] LABS: IRON 95 ug/dL (45-180)
[2018-01-09 12:04] LABS: % IRON SATURATION 29 % (20-55); TOTAL IRON BINDING CAPACITY 333 ug/dL (265-497)
[2018-01-09 12:58] VITALS: BP 109/67; PULSE 85; RESP 18; TEMP 97.5
[2018-01-09] MEDS ORDERED: Digoxin 125 mcg (0.125 mg) Tab PO SCH (14:00)
[2018-01-09 14:04] VITALS: PULSE 88
--- NOTE | 2018-01-09 22:58 | CON ---
DATE: 01/09/2018 HISTORY OF PRESENT ILLNESS: Shortly, the patient is a 67-year-old -[place] female with reported history of dementia with behavioral disturbances, also psychosis. This writer technical publications is very familiar with this patient from two previous hospitalization. The patient was discharged from the psychiatric inpatient unit on 01/02. The patient was brought in by her daughter. The patient is status post fall. The patient was admitted on the medical side for hypoglycemia. Psych consult was called because the patient has history of dementia and she is on psychotropic medications. This writer technical publications would like to emphasize the fact that two family meetings took place before discharging the patient from the psychiatric inpatient unit. This writer technical publications as well as Dr. Dhaval Card recommended the patient be placed in the long term, but the patient's daughter who is power of assistant district attorney keep insisting that the patient needs to be discharged under her care and refused to place her mother into the long term. The patient was seen and examined today. The patient presented to be sleepy, easily arousable. The patient remembered this writer technical publications. The patient knows that she is in [facility]. The patient denied being depressed. Denied any thoughts of harming herself. The patient was on one-to-one for dementia and wandering behavior, but not for suicidality. As per one-to-one, the patient was sleeping well, had fair appetite, did not exhibit any aggression or agitated behavior. MEDICATIONS: This writer technical publications reviewed the medication list. The patient is on Wellbutrin 75 mg daily, Plavix, dextrose, digoxin, Ativan 1 mg twice a day p.r.n. The patient is on Namenda, Ferrex, Inderal, Seroquel 200 mg at the nighttime and 100 mg at the morning time. LABORATORY DATA: Reviewed. WBC is 3.8, hemoglobin and hematocrit are 12.1 and 36.1. Chemistry reviewed. Sugar is better controlled. Urinalysis, leukocyte esterase small. Toxicology was negative for any benzodiazepines. This writer technical publications had prolonged conversation with Dr. Olvera and discussed the case in details. MENTAL STATUS EXAMINATION: As this writer technical publications described above, the patient has neurocognitive deficit due to dementia. The patient was sleepy, easily arousable. The patient knows that she is in [facility] and remembered this writer technical publications. Mood described as alright. Affect was constricted. Thought process: Circumstantial and tangential sometimes, the patient had difficulty to find words, which is the patient's baseline. Insight and judgment seem to be limited. Impulses are well controlled. IMPRESSION: The patient has dementia with behavioral disturbances, which seems to be progressively worsening. PLAN: Medications reviewed. The patient should continue on all of the medications. The patient's daughter refused to place the patient in the long term. director financial services need to be involved. Last admission, licensed clinical social worker called the adult protective services. This writer technical publications is not sure of what is the outcome. Social work evaluation needs to take place as well. This writer technical publications will sign off because the patient seems to be at her baseline of functioning. This writer technical publications educated the patient's daughter, power of assistant district attorney, about risks, benefits, and alternatives of all of the medication and my recommendations as well, but the patient's daughter does not want to place the patient in the long term. This writer technical publications will sign off. Thank you very much for letting me participate in care of your patient. Should you have any questions, give me a call back. Carla Wilkinson MD [facility]
== END 2018-01-09 19:26 | disposition home or self-care (01) ==
LOC: ED 19:26 → ERH 01-08 00:33 → 2RNO 01-08 03:44
PROVIDERS: ADMIT Internal Medicine; ATTEND Internal Medicine
DX: E11.649 Type 2 diabetes mellitus with hypoglycemia without coma (principal); I11.0 Hypertensive heart disease with heart failure; I50.9 Heart failure, unspecified; G30.9 Alzheimer's disease, unspecified; F02.81 Dementia in other diseases classified elsewhere, unspecified severity, with behavioral disturbance; J44.9 Chronic obstructive pulmonary disease, unspecified; K21.9 Gastro-esophageal reflux disease without esophagitis; N28.9 Disorder of kidney and ureter, unspecified; F41.9 Anxiety disorder, unspecified; F32.9 Major depressive disorder, single episode, unspecified; D64.9 Anemia, unspecified; Z86.73 Personal history of transient ischemic attack (TIA), and cerebral infarction without residual deficits; Z98.84 Bariatric surgery status; Z95.5 Presence of coronary angioplasty implant and graft; Z87.01 Personal history of pneumonia (recurrent); Z87.440 Personal history of urinary (tract) infections
CPT/HCPCS: 36415; 70450; 71045; 80048; 80053; 80061; 80320; 80324; 80329; 80345; 80346; 80349; 80353; 80358; 80361; 81001; 82607; 82746; 82948; 83036; 83540; 83550; 83992; 84443; 85025; 85027; 87086; 90791; 93005; 96361; 96374; 96376; 97116; 97161; 99285; G0378; G8978; G8979

== ENCOUNTER 2018-04-10 21:47 | Emergency (ER) | payer MEDICARE ==
[2018-04-10 21:48] VITALS: PULSE 88; BMI 25.0
[2018-04-10 22:35] VITALS: RESP 18; O2SAT 100
--- NOTE | 2018-04-10 22:44 | ED PDOC ---
Arrival/HPI - General Chief Complaint: Psychiatric Evaluation Time Seen by Provider: 04/10/18 21:53 Historian: Patient, Family (Daughter) - History of Present Illness Narrative History of Present Illness (Text): 04/10/18 22:41 Willow Cast is a 67 year old female, whose past medical history includes CHF, hypertension, DVT, asthma, dementia, diabetes, depression, CAD with coronary stent placement, who presents to the Emergency department brought in by daughter complaining of increasing confusion. Daughter states patient has mild dementia at baseline but notes over the past few days the patient has been more confused and agitated/combative then usual. Daughter notes patient is also seeing and hearing things that are not present. Patient currently alert and oriented x 2, person and place, and denies any complaints. Patient denies any suicidal ideation, homicidal ideation, chest pain, abdominal pain, back pain, headache, dizziness, or any other complaints. Symptom Onset: Gradual Symptom Course: Unchanged Activities at Onset: Light Context: Home Past Medical History - Provider Review Nursing Documentation Reviewed: Yes - Past History Past History: No Previous - Infectious Disease Hx of Infectious Diseases: None - Tetanus Immunization Tetanus Immunization: Unknown - Past Medical History Past Medical History: No Previous - Cardiac Hx Cardiac Disorders: Yes Hx Congestive Heart Failure: Yes Hx Hypertension: Yes - Pulmonary Hx Chronic Obstructive Pulmonary Disease (COPD): Yes - Neurological HX Cerebrovascular Accident: Yes (TIA) - HEENT Hx HEENT Disorder: Yes Other/Comment: glasses - Renal Hx Renal Disorder: No - Endocrine/Metabolic Hx Diabetes Mellitus Type 2: Yes - Hematological/Oncological Hx Blood Disorders: Yes Hx Anemia: Yes - Integumentary Hx Dermatological Disorder: No - Musculoskeletal/Rheumatological Hx Musculoskeletal Disorders: Yes Hx Arthritis: Yes Hx Falls: Yes - Gastrointestinal Hx Gastrointestinal Disorders: Yes Hx Gastroesophageal Reflux: Yes - Genitourinary/Gynecological Hx Genitourinary Disorders: Yes Hx Urinary Tract Infection: Yes - Psychiatric Hx Psychophysiologic Disorder: Yes Hx Anxiety: Yes Hx Depression: Yes Hx Hallucinations: Yes Hx Substance Use: No - Past Surgical History Past Surgical History: No Previous - Surgical History Hx Cardiac Catheterization: Yes Hx Coronary Stent: Yes - Anesthesia Hx Anesthesia: Yes Hx Anesthesia Reactions: No Hx Malignant Hyperthermia: No - Suicidal Assessment Feels Threatened In Home Enviroment: No Family/Social History - Physician Review Nursing Documentation Reviewed: Yes Family/Social History: Unknown Family HX Smoking Status: Former Smoker Hx Alcohol Use: No Hx Substance Use: No Hx Substance Use Treatment: No Allergies/Home Meds Allergies/Adverse Reactions: Allergies gluten Allergy (Verified 12/18/17 23:05) DIARRHEA Review of Systems - Physician Review All systems were reviewed & negative as marked: Yes - Review of Systems Constitutional: Normal. absent: Fevers Eyes: Normal ENT: Normal Respiratory: Normal. absent: SOB, Cough Cardiovascular: Normal. absent: Chest Pain Gastrointestinal: Normal. absent: Abdominal Pain, Diarrhea, Nausea, Vomiting Genitourinary Female: Normal. absent: Dysuria, Frequency, Hematuria, Urine Output Changes Musculoskeletal: Normal. absent: Back Pain, Neck Pain Skin: Normal. absent: Rash Neurological: Normal. absent: Headache, Dizziness Endocrine: Normal Hemo/Lymphatic: Normal Psychiatric: Other (+increasing confusion) Physical Exam Vital Signs Reviewed: Yes Vital Signs Temp Pulse Resp BP Pulse Ox 04/10/18 22:32 98.2 F 91 H 18 132/78 100 Temperature: Afebrile Blood Pressure: Normal Pulse: Regular Respiratory Rate: Normal Appearance: Positive for: Well-Appearing, Non-Toxic, Comfortable Pain Distress: None Mental Status: Positive for: Confused, other (Alert, oriented x2 (person and place)) - Systems Exam Head: Present: Atraumatic, Normocephalic Pupils: Present: PERRL Extroacular Muscles: Present: EOMI Conjunctiva: Present: Normal Mouth: Present: Moist Mucous Membranes Neck: Present: Normal Range of Motion Respiratory/Chest: Present: Clear to Auscultation, Good Air Exchange. No: Respiratory Distress, Accessory Muscle Use Cardiovascular: Present: Regular Rate and Rhythm, Normal S1, S2. No: Murmurs Abdomen: No: Tenderness, Distention, Peritoneal Signs Back: Present: Normal Inspection Upper Extremity: Present: Normal Inspection. No: Cyanosis, Edema Lower Extremity: Present: Normal Inspection. No: Edema Neurological: Present: GCS=15, CN II-XII Intact, Speech Normal Skin: Present: Warm, Dry, Normal Color. No: Rashes Psychiatric: Present: Alert. No: Oriented x 3 (Oriented x 2 (person and place)) Medical Decision Making ED Course and Treatment: 04/10/18 22:41 Impression: 67 year old female brought in by daughter for increasing confusion, agitations, and hallucinations. Plan: -- EKG -- CXR -- Labs, alcohol level -- Urine drug screen -- Reassess and disposition Prior Visits: Notes and results from previous visits were reviewed. Progress Notes: Reviewed EKG, NSR at [address] or T wave elevations or depressions. Normal intervals. 04/11/18 03:45 Pt seen and evaluated by PES janet Atkinson, who discussed case with psychiatric button maker and installer. Pt psychiatrically stable for d/c home with daughter. Pt and daughter agreeable with plan. - Lab Interpretations I have reviewed the lab results: Yes - EKG Interpretation Interpreted by ED Physician: Yes Type: 12 lead EKG - Scribe Statement The provider has reviewed the documentation as recorded by the Scribe Lydia Diaz All medical record entries made by the Scribe were at my direction and personally dictated by me. I have reviewed the chart and agree that the record accurately reflects my personal performance of the history, physical exam, medical decision making, and the department course for this patient. I have also personally directed, reviewed, and agree with the discharge instructions and disposition. Disposition/Present on Arrival - Present on Arrival Any Indicators Present on Arrival: No History of DVT/PE: No History of Uncontrolled Diabetes: Yes Urinary Catheter: No History of Decub. Ulcer: No History Surgical Site Infection Following: None - Disposition Have Diagnosis and Disposition been Completed?: Yes Diagnosis: Dementia with behavioral disturbance Disposition: HOME/ ROUTINE Disposition Time: 03:43 Patient Plan: Discharge Patient Problems: Current Active Problems Problem Status Onset Dementia with behavioral disturbance Chronic Condition: GOOD Discharge Instructions (ExitCare): Dementia (Including Alzheimer Disease), Dementia (DC) Additional Instructions: Follow up out patient [facility] Referrals: Fariha Olvera MD [Primary Care Provider] - Follow up with primary [facility] [Outside] - Follow up with primary Forms: SUPR (Indonesian)
[2018-04-10 23:59] LABS: HEMOGLOBIN 13.5 g/dL (12.0-16.0); MEAN CELL VOLUME 91.2 fl (80.0-105.0); MEAN CORPUSCULAR HEMOGLOBIN 30.5 pg (25.0-35.0); MEAN CORPUSCULAR HGB CONC 33.4 g/dl (31.0-37.0); MEAN PLATELET VOLUME 9.7 fl (7.0-11.0); RBC 4.43 10^6/uL (3.5-6.1); RED CELL DISTRIBUTION WIDTH 14.3 % (11.5-14.5); WHITE BLOOD COUNT 3.9 10^3/ul (4.5-11.0)
[2018-04-11 00:08] LABS: ALB/GLOB RATIO 1.2 (1.1-1.8); ALBUMIN 4.4 g/dL (3.0-4.8); CALCIUM 9.7 mg/dL (8.4-10.5)
[2018-04-11 01:47] LABS: BENZODIAZEPINES, UR NEGATIVE (NEGATIVE)
[2018-04-11 02:04] LABS: BARBITURATES, UR NEGATIVE (NEGATIVE); OPIATES, UR NEGATIVE (NEGATIVE); PHENCYCLIDINE, UR NEGATIVE (NEGATIVE)
[2018-04-11 03:50] VITALS: BP 156/72; PULSE 78; TEMP 98
--- NOTE | 2018-04-11 10:11 | RAD ---
Date of service: 04/10/2018 HISTORY: medical clearance COMPARISON: 01/07/2018 FINDINGS: LUNGS: No active pulmonary disease. PLEURA: No significant pleural effusion identified, no pneumothorax apparent. CARDIOVASCULAR: Normal. OSSEOUS STRUCTURES: No significant abnormalities. VISUALIZED UPPER ABDOMEN: Normal. OTHER FINDINGS: None. IMPRESSION: No active disease.
--- NOTE | 2018-04-11 16:39 | CARD ---
APPROVED REPORT Date of service: 04/10/2018 EKG Measurement Heart [id number] [id number] <Conclusion> Normal sinus rhythm Normal ECG
== END 2018-04-11 03:53 | disposition home or self-care (01) ==
LOC: ED 21:47
DX: F03.91 Unspecified dementia, unspecified severity, with behavioral disturbance (principal); I25.10 Atherosclerotic heart disease of native coronary artery without angina pectoris; I11.0 Hypertensive heart disease with heart failure; I50.9 Heart failure, unspecified; E11.9 Type 2 diabetes mellitus without complications; Z86.73 Personal history of transient ischemic attack (TIA), and cerebral infarction without residual deficits; Z95.5 Presence of coronary angioplasty implant and graft; Z87.891 Personal history of nicotine dependence

== ENCOUNTER 2018-08-05 20:09 | Emergency (ER) | payer MEDICARE, MEDICAID ==
[2018-08-05 20:10] VITALS: PULSE 88
[2018-08-05 20:18] VITALS: BMI 24.3
[2018-08-05 20:24] VITALS: BP 141/85; PULSE 92; RESP 18; TEMP 97.9; O2SAT 96
[2018-08-05] MEDS ORDERED: Lidocaine 5% Patch TD STA (20:48)
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
--- NOTE | 2018-08-06 07:53 | RAD ---
Date of service: 08/05/2018 PROCEDURE: Radiographs of the Right Shoulder HISTORY: pain COMPARISON: No prior. FINDINGS: BONES: No acute fracture or destructive bony lesion identified. JOINTS: Degenerative cortical sclerosis appreciated at the glenohumeral and acromioclavicular joints dislocation or subluxation evident. SOFT TISSUES: Normal. OTHER FINDINGS: None. IMPRESSION: Mild to moderate degenerative joint disease. No acute fracture or dislocation right shoulder.
== END 2018-08-05 22:30 | disposition home or self-care (01) ==
LOC: ED 20:09
DX: S40.011A Contusion of right shoulder, initial encounter (principal); W18.30XA Fall on same level, unspecified, initial encounter; Y92.009 Unspecified place in unspecified non-institutional (private) residence as the place of occurrence of the external cause; E11.9 Type 2 diabetes mellitus without complications; I10 Essential (primary) hypertension; I25.10 Atherosclerotic heart disease of native coronary artery without angina pectoris; I50.9 Heart failure, unspecified; F03.90 Unspecified dementia, unspecified severity, without behavioral disturbance, psychotic disturbance, mood disturbance, and anxiety; Z86.718 Personal history of other venous thrombosis and embolism; Z87.891 Personal history of nicotine dependence; Z86.73 Personal history of transient ischemic attack (TIA), and cerebral infarction without residual deficits; J44.9 Chronic obstructive pulmonary disease, unspecified

== ENCOUNTER 2018-10-21 18:43 | Inpatient (IN) | payer MEDICARE, MEDICAID ==
[2018-10-21 18:43] VITALS: BMI 24.3
--- NOTE | 2018-10-21 19:45 | ED PDOC ---
Arrival/HPI - General Historian: Patient, Family - History of Present Illness Narrative History of Present Illness (Text): Patient is a 67 year old female with past medical history of dementia, CAD s/p PCI, gastric bypass, T2DM, celiac disease, DVT, TIA, and depression who presents to the ED complaining diarrhea and hematochezia which has been ongoing for three weeks. Patient admits to eye pain and headache. She also has history of frequent falls. Denies fevers, chills, chest pain, shortness of breath, abdominal pain, dysuria. Time/Duration: > week Symptom Onset: Gradual Symptom Course: Unchanged Context: Home <Connor Crockett - Last Filed: 10/22/18 01:22> <Eugenio Lorenzo - Last Filed: 10/22/18 06:09> - General Chief Complaint: GI Problem Time Seen by Provider: 10/21/18 19:01 Past Medical History - Provider Review Nursing Documentation Reviewed: Yes - Past History Past History: No Previous - Infectious Disease Hx of Infectious Diseases: None - Tetanus Immunization Tetanus Immunization: Unknown - Reproductive Menopause: Yes - Past Medical History Past Medical History: No Previous - Cardiac Hx Cardiac Disorders: Yes Hx Congestive Heart Failure: Yes Hx Hypertension: Yes - Pulmonary Hx Chronic Obstructive Pulmonary Disease (COPD): Yes - Neurological HX Cerebrovascular Accident: Yes (TIA) - HEENT Hx HEENT Disorder: Yes Other/Comment: glasses - Renal Hx Renal Disorder: No - Endocrine/Metabolic Hx Diabetes Mellitus Type 2: Yes - Hematological/Oncological Hx Blood Disorders: Yes Hx Anemia: Yes - Integumentary Hx Dermatological Disorder: No - Musculoskeletal/Rheumatological Hx Musculoskeletal Disorders: Yes Hx Arthritis: Yes Hx Falls: Yes - Gastrointestinal Hx Gastrointestinal Disorders: Yes Hx Gastroesophageal Reflux: Yes Other/Comment: celiac disease - Genitourinary/Gynecological Hx Genitourinary Disorders: Yes Hx Urinary Tract Infection: Yes - Psychiatric Hx Psychophysiologic Disorder: Yes Hx Anxiety: Yes Hx Depression: Yes Hx Hallucinations: Yes Hx Substance Use: No - Past Surgical History Past Surgical History: No Previous - Surgical History Hx Cardiac Catheterization: Yes Hx Coronary Stent: Yes - Anesthesia Hx Anesthesia: Yes Hx Anesthesia Reactions: No Hx Malignant Hyperthermia: No - Suicidal Assessment Feels Threatened In Home Enviroment: No <Connor Crockett - Last Filed: 10/22/18 01:22> Family/Social History - Physician Review Nursing Documentation Reviewed: Yes Family/Social History: No Known Family HX Smoking Status: Former Smoker Hx Alcohol Use: No Hx Substance Use: No Hx Substance Use Treatment: No <Connor Crockett - Last Filed: 10/22/18 01:22> Allergies/Home Meds <Connor Crockett - Last Filed: 10/22/18 01:22> <Eugenio Lorenzo - Last Filed: 10/22/18 06:09> Allergies/Adverse Reactions: Allergies gluten Allergy (Verified 10/21/18 18:56) DIARRHEA Review of Systems - Review of Systems Eyes: Eye Pain Respiratory: Normal Cardiovascular: Normal Gastrointestinal: Diarrhea, Hematochezia Neurological: Headache <Connor Crockett - Last Filed: 10/22/18 01:22> - Review of Systems Constitutional: Normal Eyes: Normal ENT: Normal Respiratory: Normal Cardiovascular: Normal Gastrointestinal: Normal Genitourinary Female: Normal Musculoskeletal: Normal Skin: Normal Neurological: Normal Endocrine: Normal Hemo/Lymphatic: Normal Psychiatric: Normal <Eugenio Lorenzo - Last Filed: 10/22/18 06:09> Physical Exam Vital Signs Reviewed: Yes Vital Signs Temp Pulse Resp BP Pulse Ox 10/21/18 18:50 98.5 F 102 H 18 135/85 100 Temperature: Afebrile Blood Pressure: Normal Pulse: Tachycardic Respiratory Rate: Normal Appearance: Positive for: Well-Appearing, Comfortable Pain Distress: None Mental Status: Positive for: Alert and Oriented X 3 - Systems Exam Head: Present: Atraumatic, Normocephalic Pupils: Present: PERRL Extroacular Muscles: Present: EOMI Conjunctiva: Present: Normal Mouth: Present: Moist Mucous Membranes Respiratory/Chest: Present: Clear to Auscultation, Good Air Exchange. No: Respiratory Distress, Accessory Muscle Use Cardiovascular: Present: Regular Rate and Rhythm, Normal S1, S2, Tachycardic Abdomen: Present: Normal Bowel Sounds. No: Tenderness, Distention, Rebound, Guarding Rectal: Present: Occult Blood, Normal Rectal Tone. No: Rectal Tenderness, Gross Blood, Nodule/Mass/Lesions Lower Extremity: Present: Normal Inspection, NORMAL PULSES. No: Edema Neurological: Present: GCS=15, CN II-XII Intact, Speech Normal Skin: Present: Warm, Dry, Normal Color Psychiatric: Present: Alert, Oriented x 3, Normal Insight, Normal Concentration <Connor Crockett - Last Filed: 10/22/18 01:22> Vital Signs Temp Pulse Resp BP Pulse Ox 10/21/18 21:01 84 16 119/55 L 100 10/21/18 18:50 98.5 F 102 H 18 135/85 100 Temperature: Afebrile Blood Pressure: Normal Pulse: Regular Respiratory Rate: Normal Appearance: Positive for: Well-Appearing, Non-Toxic, Comfortable Pain Distress: None Mental Status: Positive for: Alert and Oriented X 3 - Systems Exam Head: Present: Atraumatic, Normocephalic Pupils: Present: PERRL Extroacular Muscles: Present: EOMI Conjunctiva: Present: Normal Mouth: Present: Moist Mucous Membranes Neck: Present: Normal Range of Motion Respiratory/Chest: Present: Clear to Auscultation, Good Air Exchange. No: Respiratory Distress, Accessory Muscle Use Cardiovascular: Present: Regular Rate and Rhythm, Normal S1, S2. No: Murmurs Abdomen: No: Tenderness, Distention, Peritoneal Signs Back: Present: Normal Inspection Upper Extremity: Present: Normal Inspection. No: Cyanosis, Edema Lower Extremity: Present: Normal Inspection. No: Edema Neurological: Present: GCS=15, CN II-XII Intact, Speech Normal Skin: Present: Warm, Dry, Normal Color. No: Rashes Psychiatric: Present: Alert, Oriented x 3, Normal Insight, Normal Concentration <Eugenio Lorenzo - Last Filed: 10/22/18 06:09> Medical Decision Making ED Course and Treatment: Impression: 67 year old female with diarrhea, rectal bleeding, eye pain Plan: - CBC, CMP - EKG - Reglan - Urinalysis - CT head w/o contrast - Reassess and disposition Prior Visits: Notes and results from previous visits were reviewed. Progress Notes: Labs and imaging reviewed. Patient hemodynamically stable. Discussed patient status with Dr. Olvera who accepts patient for admission. Patient in agreement with plan of management. - Lab Interpretations I have reviewed the lab results: Yes - RAD Interpretation Radiology Orders: 10/21/18 19:33 HEAD W/O CONTRAST [CT] Stat - EKG Interpretation Interpreted by ED Physician: Yes Type: 12 lead EKG - Medication Orders Current Medication Orders: Discontinued Medications Metoclopramide HCl (Reglan) 10 mg IVP STAT STA Stop: 10/21/18 19:34 <Connor Crockett - Last Filed: 10/22/18 01:22> ED Course and Treatment: Impression: Pt seen and evaluated with medical cost consultant. Aware and agree with HPI, clinical findings, plan, and management. Pt, whose past medical history includes dementia, CAD, gastric bypass, Type 2 diabetes, celiac disease, DVT, TIA, and depression, presented for depression and hematochezia. Plan: -- CT Head w/o contrast -- EKG -- CXR -- Labs -- Urinalysis -- Reglan -- Reassess and disposition 10/21/18 22:20 CT Head: BRAIN: No acute intraparenchymal hemorrhage. No mass lesion. No CT evidence for acute territorial infarct. No midline shift or extra-axial collections. Generalized cortical atrophy is present, as demonstrated by diffuse sulcal prominence. VENTRICLES: No hydrocephalus. ORBITS: The orbits are unremarkable. SINUSES AND MASTOIDS: The paranasal sinuses and mastoid air cells are clear. BONES: No fracture. SOFT TISSUES: Unremarkable. IMPRESSION: Generalized cortical atrophy. No acute intracranial abnormality. Electronically signed on Oct 21, 2018 10:17:13 PM EDT by: Rupa Flaherty M.D., Certified by [facility], Diagnostic Radiology - Lab Interpretations Lab Results: Total Bilirubin 0.6 mg/dL (0.2-1.3) 10/21/18 20:07 AST 20 U/L (14-36) 10/21/18 20:07 ALT < 6 U/L (7-56) L 10/21/18 20:07 Alkaline Phosphatase 77 U/L (38-126) 10/21/18 20:07 Total Protein 7.0 g/dL (5.8-8.3) 10/21/18 20:07 Albumin 3.8 g/dL (3.0-4.8) 10/21/18 20:07 Globulin 3.2 gm/dL 10/21/18 20:07 Albumin/Globulin Ratio 1.2 (1.1-1.8) 10/21/18 20:07 - RAD Interpretation Radiology Orders: 10/21/18 19:33 HEAD W/O CONTRAST [CT] Stat 10/21/18 20:34 CXR [CHEST PORTABLE] [RAD] Stat - Medication Orders Current Medication Orders: Discontinued Medications Metoclopramide HCl (Reglan) 10 mg IVP STAT STA Stop: 10/21/18 19:34 Last Admin: 10/21/18 20:14 Dose: 10 mg IVP Administration Document 10/21/18 20:14 KV (Rec: 10/21/18 20:14 KV [id number]) Charges for Administration # of IVP Administrations 1 Potassium Chloride (K-Dur 20 Meq Er Tab) 40 meq PO STAT STA Stop: 10/21/18 20:53 Last Admin: 10/21/18 20:59 Dose: 40 meq <Eugenio Lorenzo - Last Filed: 10/22/18 06:09> - PA / OPERATIONS OFFICER / Resident Statement / has reviewed & agrees with the documentation as recorded. / has examined the patient and agrees with the treatment plan. <Eugenio Lorenzo - Last Filed: 10/22/18 06:09> Disposition/Present on Arrival - Present on Arrival Any Indicators Present on Arrival: No History of DVT/PE: No History of Uncontrolled Diabetes: No Urinary Catheter: No History of Decub. Ulcer: No History Surgical Site Infection Following: None - Disposition Have Diagnosis and Disposition been Completed?: Yes Disposition Time: 23:25 <Connor Crockett - Last Filed: 10/22/18 01:22> <Eugenio Lorenzo - Last Filed: 10/22/18 06:09> - Disposition Diagnosis: GI bleeding Disposition: HOSPITALIZED Patient Problems: Current Active Problems Problem Status Onset GI bleeding Acute Condition: STABLE
[2018-10-21 20:18] LABS: EOS % 0.3 % (1.5-5.0); HEMOGLOBIN 11.4 g/dL (12.0-16.0); LYMPH # 1.3 (1.2-3.4); LYMPH % 33.8 % (22.0-35.0); MEAN CORPUSCULAR HEMOGLOBIN 33.9 pg (25.0-35.0); MEAN CORPUSCULAR HGB CONC 33.9 g/dl (31.0-37.0); MEAN PLATELET VOLUME 10.2 fl (7.0-11.0); MONO # 0.2 (0.1-0.6); MONO % 4.8 % (1.0-6.0); RBC 3.36 10^6/uL (3.5-6.1); RED CELL DISTRIBUTION WIDTH 15.4 % (11.5-14.5)
[2018-10-21 20:51] LABS: ALB/GLOB RATIO 1.2 (1.1-1.8); ALBUMIN 3.8 g/dL (3.0-4.8); ALT/SGPT < 6 U/L (7-56); AST/SGOT 20 U/L (14-36); BLOOD UREA NITROGEN 12 mg/dL (7-21); CALCIUM 8.5 mg/dL (8.4-10.5); GFR NON-AFRICAN AMERICAN 55
[2018-10-21] MEDS ORDERED: Potassium Chloride 20 mEq ER Tab PO STA (20:52)
[2018-10-21] MEDS ORDERED: Potassium Chloride 40 mEq/30 ml LIQ UD PO STA (21:04)
[2018-10-21 22:27] LABS: URINE BILIRUBIN SMALL (NEGATIVE); URINE BLOOD NEGATIVE (NEGATIVE); URINE GLUCOSE (UA) NEGATIVE (NEGATIVE); URINE LEUKOCYTE ESTERASE NEGATIVE Leu/uL (NEGATIVE); URINE PROTEIN 30 mg/dL (<30 mg/dL); URINE UROBILINOGEN 0.2 E.U./dL (<1 E.U./dL)
[2018-10-21 22:28] LABS: URINE APPEARANCE CLEAR (CLEAR); URINE COLOR LIGHT YELLOW (YELLOW)
[2018-10-21 22:31] LABS: URINE BACTERIA TRACE /hpf; URINE RBC 0 - 2 /hpf (0-2)
[2018-10-22] MEDS ORDERED: Sodium Chloride 0.9% 1,000 ML IV STA (00:17)
[2018-10-22] MEDS ORDERED: Magnesium Sulfate 2 gm/50 ml 2 GM/50 ML BAG IVPB ONE (07:48)
[2018-10-22 09:24] LABS: EOS % 0.3 % (1.5-5.0); HEMOGLOBIN 11.4 g/dL (12.0-16.0); LYMPH # 1.1 (1.2-3.4); LYMPH % 31.1 % (22.0-35.0); MEAN CELL VOLUME 101.8 fl (80.0-105.0); MEAN CORPUSCULAR HEMOGLOBIN 34.1 pg (25.0-35.0); MEAN CORPUSCULAR HGB CONC 33.5 g/dl (31.0-37.0); MEAN PLATELET VOLUME 8.5 fl (7.0-11.0); MONO # 0.2 (0.1-0.6); MONO % 6.6 % (1.0-6.0); RBC 3.34 10^6/uL (3.5-6.1); WHITE BLOOD COUNT 3.5 10^3/uL (4.5-11.0)
--- NOTE | 2018-10-22 09:27 | CARD ---
APPROVED REPORT Date of service: 10/22/2018 EKG Measurement Heart [id number] <Conclusion> Normal sinus rhythm Possible septal infarct, age undetermined Abnormal ECG
--- NOTE | 2018-10-22 09:30 | RAD ---
Date of service: 10/21/2018 HISTORY: eval COMPARISON: 04/10/2018 TECHNIQUE: 1 view obtained. FINDINGS: LUNGS: No active pulmonary disease. PLEURA: No significant pleural effusion identified, no pneumothorax apparent. CARDIOVASCULAR: No aortic atherosclerotic calcification present. Normal cardiac size. No pulmonary vascular congestion. OSSEOUS STRUCTURES: No significant abnormalities. VISUALIZED UPPER ABDOMEN: Normal. OTHER FINDINGS: None. IMPRESSION: No active disease.
[2018-10-22 09:38] LABS: ALB/GLOB RATIO 1.2 (1.1-1.8); ALBUMIN 3.7 g/dL (3.0-4.8); CALCIUM 8.5 mg/dL (8.4-10.5)
[2018-10-22] MEDS: Iron Complex Polysacch 150mg Cap PO SCH (09:58)
--- NOTE | 2018-10-22 10:08 | CT ---
Date of service: 10/21/2018 PROCEDURE: CT HEAD WITHOUT CONTRAST. HISTORY: headache, eye pain COMPARISON: None available. TECHNIQUE: Axial computed tomography images were obtained through the head/brain without intravenous contrast. Radiation dose: Total exam DLP = 1047.05 mGy-cm. This CT exam was performed using one or more of the following dose reduction techniques: Automated exposure control, adjustment of the mA and/or kV according to patient size, and/or use of iterative reconstruction technique. FINDINGS: HEMORRHAGE: No intracranial hemorrhage. BRAIN: No mass effect or edema. No atrophy or chronic microvascular ischemic changes. VENTRICLES: Unremarkable. No hydrocephalus. CALVARIUM: Unremarkable. PARANASAL SINUSES: Unremarkable as visualized. No significant inflammatory changes. MASTOID AIR CELLS: Unremarkable as visualized. No inflammatory changes. OTHER FINDINGS: None. IMPRESSION: Normal CT of the Head.
--- NOTE | 2018-10-22 11:30 | CP.PCM.CON ---
<Patricia Hayden - Last Filed: 10/22/18 13:45> History of Present Illness - History of Present Illness History of Present Illness: Patricia Hayden, PGY2, GI Consult Note for Dr Boyer: Reason for consult: GI bleed CC: diarrhea This is a 67 year old female, poor historian, with PMH dementia, CAD s/p PCI, gastric bypass, DM, DVT, TIA, is here for intermittent hematochezia for past 2-3 weeks. Patient lives with her daughter, and states that she would know more about her condition since she has dementia. Patient reports that she has been having intermittent stools with BRBPR, patient states that she has been having this blood in toilet bowl. Denies dizziness, abdominal pain, nausea, vomiting, melena, fevers, chills, cp, sob, dysuria. Denies prior such episodes. 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 Biopsies not taken as patient was on plavix. Her last Flex sigmoidoscopy (08/2017) was w Dr Adam: internal hemorrhoids. diffuse moderate inflammation in sigmoid colon and descending colon. stool in sigmoid colon. Patient vaguely remembers that her last colonoscopy was many years ago, possibly "normal results." Denies weight loss, changes in stool character, diarrhea, constipation. In ED, her vitals were stable, Hgb at baseline 11.4. Denies further hematochezia episodes since admission. States that her last BM was soft, brown yesterday morning, no blood in it. 12 point ROS obtained and neg, except as per HPI. PMD Wade PMH: dementia, depression, CAD s/p PCI, DM, gastric bypass, chronic diarrhea, DVT in right leg, and TIA PSH: gastric bypass Allergies: Gluten (diarrhea) FH: father with [place] at age 42, aunt with throat cancer SH: former smoker (quit 20 years ago), denies alcohol and elicit drug use Review of Systems - Review of Systems All systems: reviewed and no additional remarkable complaints except Review of Systems: as per HPI Past Patient History - Infectious Disease Hx of Infectious Diseases: None - Tetanus Immunizations Tetanus Immunization: Unknown - Past Medical History & Family History Past Medical History?: Yes - Past Social History Smoking Status: Former Smoker - CARDIAC Hx Cardiac Disorders: Yes Hx Congestive Heart Failure: Yes Hx Hypertension: Yes - PULMONARY Hx Chronic Obstructive Pulmonary Disease (COPD): Yes - NEUROLOGICAL HX Cerebrovascular Accident: Yes (TIA) - HEENT Hx HEENT Problems: Yes Other/Comment: glasses - RENAL Hx Chronic Kidney Disease: No - ENDOCRINE/METABOLIC Hx Diabetes Mellitus Type 2: Yes - HEMATOLOGICAL/ONCOLOGICAL Hx Blood Disorders: Yes Hx Anemia: Yes - INTEGUMENTARY Hx Dermatological Problems: No - MUSCULOSKELETAL/RHEUMATOLOGICAL Hx Musculoskeletal Disorders: Yes Hx Arthritis: Yes Hx Falls: Yes - GASTROINTESTINAL Hx Gastrointestinal Disorders: Yes Hx Gastroesophageal Reflux: Yes Other/Comment: celiac disease - GENITOURINARY/GYNECOLOGICAL Hx Genitourinary Disorders: Yes Hx Urinary Tract Infection: Yes - PSYCHIATRIC Hx Psychophysiologic Disorder: Yes Hx Anxiety: Yes Hx Depression: Yes Hx Hallucinations: Yes Hx Substance Use: No - SURGICAL HISTORY Hx Cardiac Catheterization: Yes Hx Coronary Stent: Yes - ANESTHESIA Hx Anesthesia: Yes Hx Anesthesia Reactions: No Hx Malignant Hyperthermia: No Meds Allergies/Adverse Reactions: Allergies Allergy/AdvReac Type Severity Reaction Status Date / Time gluten Allergy DIARRHEA Verified 10/21/18 18:56 - Medications Medications: Current Medications Acetaminophen (Tylenol 325mg Tab) 650 mg PO Q4H PRN PRN Reason: Pain, Mild (1-3) Bupropion HCl (Wellbutrin) 75 mg PO DAILY [facility] Last Admin: 10/22/18 09:59 Dose: 75 mg Clopidogrel Bisulfate (Plavix) 75 mg PO DAILY [facility] Last Admin: 10/22/18 09:58 Dose: 75 mg Digoxin (Digoxin) 0.125 mg PO 1400 [facility] Memantine (Namenda) 10 mg PO BID [facility] Last Admin: 10/22/18 09:58 Dose: 10 mg Polysaccharide Iron Complex (Ferrex-150) 150 mg PO DAILY [facility] Last Admin: 10/22/18 09:58 Dose: 150 mg Propranolol HCl (Inderal) 40 mg PO DAILY [facility] Last Admin: 10/22/18 09:58 Dose: 40 mg Thiamine HCl (Vitamin B1 Tab) 100 mg PO DAILY [facility] Last Admin: 10/22/18 09:59 Dose: 100 mg Physical Exam - Constitutional Appears: Non-toxic, No Acute Distress, Older Than Stated Age - Head Exam Head Exam: ATRAUMATIC, NORMOCEPHALIC - Eye Exam Eye Exam: EOMI, PERRL. absent: Conjunctival injection, Nystagmus, Scleral icterus Pupil Exam: NORMAL ACCOMODATION, PERRL. absent: Irregular, Unequal - ENT Exam ENT Exam: Mucous Membranes Moist - Neck Exam Neck exam: Positive for: Full Rom - Respiratory Exam Respiratory Exam: Clear to Auscultation Bilateral, NORMAL BREATHING PATTERN. absent: Accessory Muscle Use, Rhonchi, Wheezes - Cardiovascular Exam Cardiovascular Exam: RRR, +S1, +S2. absent: Systolic Murmur - GI/Abdominal Exam GI & Abdominal Exam: Normal Bowel Sounds, Soft. absent: Distended, Firm, Guarding, Rebound, Rigid, Tenderness - Rectal Exam Rectal Exam: Hemorrhoids. absent: Black Stool, Bloody Stool Additional comments: no stool in rectal vault. good rectal tone. + external hemorrhoids noted, - Extremities Exam Extremities exam: Positive for: normal inspection. Negative for: calf tenderness, pedal edema - Back Exam Back exam: NORMAL INSPECTION - Neurological Exam Neurological exam: Alert, Oriented x3 - Psychiatric Exam Psychiatric exam: Normal Affect - Skin Skin Exam: Normal Color, Warm Results - Vital Signs Recent Vital Signs: Last Vital Signs Temp 97.3 F L 10/22/18 06:00 Pulse 75 10/22/18 09:58 Resp 18 10/22/18 06:00 BP 137/75 10/22/18 09:58 Pulse Ox 99 10/22/18 06:00 - Labs Result Diagrams: 10/22/18 07:48 10/22/18 07:48 Labs: Laboratory Results - last 24 hr 10/21/18 10/21/18 10/21/18 20:07 20:07 20:07 WBC 4.0 L RBC 3.36 L Hgb 11.4 L D Hct 33.6 L MCV 100.0 D MCH 33.9 MCHC 33.9 RDW 15.4 H Plt Count 173 MPV 10.2 Neut % (Auto) 61.1 Lymph % (Auto) 33.8 [place] % (Auto) 4.8 Eos % (Auto) 0.3 L Baso % (Auto) 0.0 Lymph # (Auto) 1.3 [place] # (Auto) 0.2 Eos # (Auto) 0.0 Baso # (Auto) 0.00 Absolute Neuts (auto) 2.43 Sodium 136 Potassium 3.1 L Chloride 102 Carbon Dioxide 26 Anion Gap 12 BUN 12 Creatinine 1.0 Est GFR ( Amer) > 60 Est GFR (Non-Af Amer) 55 POC Glucose (mg/dL) Random Glucose 117 H Calcium 8.5 Phosphorus 3.9 Magnesium 1.6 L Total Bilirubin 0.6 AST 20 ALT < 6 L Alkaline Phosphatase 77 Troponin I < 0.01 Total Protein 7.0 Albumin 3.8 Globulin 3.2 Albumin/Globulin Ratio 1.2 Urine Color Urine Appearance Urine pH Ur Specific Circle Urine Protein Urine Glucose (UA) Urine Ketones Urine Blood Urine Nitrate Urine Bilirubin Urine Urobilinogen Ur Leukocyte Esterase Urine RBC Urine WBC Ur Epithelial Cells Urine Bacteria Urine Other 10/21/18 10/22/18 10/22/18 22:20 07:30 07:48 WBC 3.5 L RBC 3.34 L Hgb 11.4 L Hct 34.0 L MCV 101.8 MCH 34.1 MCHC 33.5 RDW 15.0 H Plt Count 110 L MPV 8.5 Neut % (Auto) 62.0 Lymph % (Auto) 31.1 [place] % (Auto) 6.6 H Eos % (Auto) 0.3 L Baso % (Auto) 0.0 Lymph # (Auto) 1.1 L [place] # (Auto) 0.2 Eos # (Auto) 0.0 Baso # (Auto) 0.00 Absolute Neuts (auto) 2.15 Sodium Potassium Chloride Carbon Dioxide Anion Gap BUN Creatinine Est GFR ( Amer) Est GFR (Non-Af Amer) POC Glucose (mg/dL) 66 Random Glucose Calcium Phosphorus Magnesium Total Bilirubin AST ALT Alkaline Phosphatase Troponin I Total Protein Albumin Globulin Albumin/Globulin Ratio Urine Color Light yellow Urine Appearance Clear Urine pH 6.[address] >= 1.030 Urine Protein 30 H Urine Glucose (UA) Negative Urine Ketones Trace H Urine Blood Negative Urine Nitrate Negative Urine Bilirubin Small H Urine Urobilinogen 0.2 Ur Leukocyte Esterase Negative Urine RBC 0 - 2 Urine WBC 1 - 3 Ur Epithelial Cells 4 - 5 Urine Bacteria Trace Urine Other Mucus 10/22/18 07:48 WBC RBC Hgb Hct MCV MCH MCHC RDW Plt Count MPV Neut % (Auto) Lymph % (Auto) [place] % (Auto) Eos % (Auto) Baso % (Auto) Lymph # (Auto) [place] # (Auto) Eos # (Auto) Baso # (Auto) Absolute Neuts (auto) Sodium 137 Potassium 3.4 L Chloride 103 Carbon Dioxide 27 Anion Gap 10 BUN 9 Creatinine 1.1 Est GFR ( Amer) 60 Est GFR (Non-Af Amer) 50 POC Glucose (mg/dL) Random Glucose 108 Calcium 8.5 Phosphorus Magnesium 2.5 H Total Bilirubin 0.8 AST 20 ALT 6 L Alkaline Phosphatase 69 Troponin I Total Protein 6.7 Albumin 3.7 Globulin 3.1 Albumin/Globulin Ratio 1.2 Urine Color Urine Appearance Urine pH Ur Specific Circle Urine Protein Urine Glucose (UA) Urine Ketones Urine Blood Urine Nitrate Urine Bilirubin Urine Urobilinogen Ur Leukocyte Esterase Urine RBC Urine WBC Ur Epithelial Cells Urine Bacteria Urine Other Assessment & Plan - Assessment and Plan (Free Text) Assessment: # Hematochezia, 2/2 hemorrhoids vs AVM vs colon cancer, less likely IBD # CAD s/p PCI # Gastric bypass # DM # TIA # DVT - Recommend clear liquid diet - Likely EGD, colonoscopy outpatient - monitor H/H. - Further recs per Dr Boyer. Case will be seen and discussed with Dr Boyer. <Gee Boyer V - Last Filed: 10/22/18 23:48> Meds - Medications Medications: Current Medications Acetaminophen (Tylenol 325mg Tab) 650 mg PO Q4H PRN PRN Reason: Pain, Mild (1-3) Bupropion HCl (Wellbutrin) 75 mg PO DAILY [facility] Last Admin: 10/22/18 09:59 Dose: 75 mg Clopidogrel Bisulfate (Plavix) 75 mg PO DAILY [facility] Last Admin: 10/22/18 09:58 Dose: 75 mg Digoxin (Digoxin) 0.125 mg PO 1400 [facility] Last Admin: 10/22/18 14:50 Dose: 0.125 mg Memantine (Namenda) 10 mg PO BID [facility] Last Admin: 10/22/18 18:07 Dose: 10 mg Polysaccharide Iron Complex (Ferrex-150) 150 mg PO DAILY [facility] Last Admin: 10/22/18 09:58 Dose: 150 mg Propranolol HCl (Inderal) 40 mg PO DAILY [facility] Last Admin: 10/22/18 09:58 Dose: 40 mg Thiamine HCl (Vitamin B1 Tab) 100 mg PO DAILY [facility] Last Admin: 10/22/18 09:59 Dose: 100 mg Results - Vital Signs Recent Vital Signs: Last Vital Signs Temp 97.5 F L 10/22/18 18:00 Pulse 74 10/22/18 18:00 Resp 19 10/22/18 18:00 BP 157/78 H 10/22/18 18:00 Pulse Ox 99 10/22/18 06:00 - Labs Result Diagrams: 10/22/18 07:48 10/22/18 07:48 Labs: Laboratory Results - last 24 hr 10/21/18 10/22/18 10/22/18 20:07 07:30 07:48 WBC 3.5 L RBC 3.34 L Hgb 11.4 L Hct 34.0 L MCV 101.8 MCH 34.1 MCHC 33.5 RDW 15.0 H Plt Count 110 L MPV 8.5 Neut % (Auto) 62.0 Lymph % (Auto) 31.1 [place] % (Auto) 6.6 H Eos % (Auto) 0.3 L Baso % (Auto) 0.0 Lymph # (Auto) 1.1 L [place] # (Auto) 0.2 Eos # (Auto) 0.0 Baso # (Auto) 0.00 Absolute Neuts (auto) 2.15 Sodium Potassium Chloride Carbon Dioxide Anion Gap BUN Creatinine Est GFR ( Amer) Est GFR (Non-Af Amer) POC Glucose (mg/dL) 66 Random Glucose Calcium Magnesium Total Bilirubin AST ALT Alkaline Phosphatase Troponin I < 0.01 Total Protein Albumin Globulin Albumin/Globulin Ratio 10/22/18 10/22/18 10/22/18 07:48 11:35 16:22 WBC RBC Hgb Hct MCV MCH MCHC RDW Plt Count MPV Neut % (Auto) Lymph % (Auto) [place] % (Auto) Eos % (Auto) Baso % (Auto) Lymph # (Auto) [place] # (Auto) Eos # (Auto) Baso # (Auto) Absolute Neuts (auto) Sodium 137 Potassium 3.4 L Chloride 103 Carbon Dioxide 27 Anion Gap 10 BUN 9 Creatinine 1.1 Est GFR ( Amer) 60 Est GFR (Non-Af Amer) 50 POC Glucose (mg/dL) 106 98 Random Glucose 108 Calcium 8.5 Magnesium 2.5 H Total Bilirubin 0.8 AST 20 ALT 6 L Alkaline Phosphatase 69 Troponin I Total Protein 6.7 Albumin 3.7 Globulin 3.1 Albumin/Globulin Ratio 1.2 10/22/18 21:32 WBC RBC Hgb Hct MCV MCH MCHC RDW Plt Count MPV Neut % (Auto) Lymph % (Auto) [place] % (Auto) Eos % (Auto) Baso % (Auto) Lymph # (Auto) [place] # (Auto) Eos # (Auto) Baso # (Auto) Absolute Neuts (auto) Sodium Potassium Chloride Carbon Dioxide Anion Gap BUN Creatinine Est GFR ( Amer) Est GFR (Non-Af Amer) POC Glucose (mg/dL) 82 Random Glucose Calcium Magnesium Total Bilirubin AST ALT Alkaline Phosphatase Troponin I Total Protein Albumin Globulin Albumin/Globulin Ratio Attending/Attestation - Attestation I have personally seen and examined this patient.: Yes I have fully participated in the care of the patient.: Yes I have reviewed all pertinent clinical information: Yes Notes (Text): carmelo 10/22/18 23:48
[2018-10-22] MEDS: Digoxin 125 mcg (0.125 mg) Tab PO SCH (14:50)
--- NOTE | 2018-10-22 19:43 | PN ---
DATE: 10/22/2018 This case was discussed with Dr. Olvera. She is in agreement with treatment plan. SUBJECTIVE: This is a 67-year-old female came in to ER with complaints of diarrhea with rectal bleeding. She has past medical history of dementia, CAD, diabetes mellitus, TIA, chronic rectal bleeding for about as the patient reports for two weeks. The patient lives with family. She does not smoke; does not drink. The patient was seen today. No acute distress was noted, just appear chronically ill. Has complaints of some fatigue and generalized pain. She denies sore throat, facial pain, chest pain, palpitation, shortness of breath, hemoptysis, heartburn, constipation, abdominal pain, joint pain, or joint swelling. OBJECTIVE: VITAL SIGNS: Temperature 97.4, blood pressure 111/67, pulse 81, respiratory rate 20, and saturation 99% on room air. P/E NO ACUTE DISTRESS NECK SUPPLE LUNGS CTA S1S2, NO EDEMA OF LEGS ABDOMEN SOFT NON-TENDER PV SKIN WARM TO TOUCH, + PEDAL PULSES BILAT. INTACT LABORATORY DATA: White blood cells 8.5, hemoglobin 11.4, hematocrit 34, and platelet count 110. Sodium 137, potassium 3.4, chloride 103, carbon dioxide 27, BUN is 9, random glucose is 108, magnesium is little bit high at 3.5, and elevated ALT. MEDICATIONS: Tylenol 650 every 4 hours, Wellbutrin 75 mg p.o. daily, Plavix, digoxin, Namenda, polysaccharide iron, Ferrex 150, propranolol, Inderal, and vitamin B1. ASSESSMENT AND PLAN: The patient is 67-year-old female with history of Celiac disease, GI rectal bleed. She has a past medical history of hypertension and gastroesophageal reflux disease HTN, Dementia TIA. I saw the patient today. No acute abdominal pain was noted she denies rectal bleeding last night or this morning patient was seen by GI, will f/u. Psychiatry was consulted for depression, patient was in agreement. The patient has numerous complaints feeling fatique, generalized pain " all over", insomonia, also has complaints of not feeling right and some depression, She may also have some psychological problems;we are going to follow up with consult for Psychiatry and also with Gastroenterology outpatient once discharged. Jonathon Sherman APN Fariha Olvera MD [facility] # [id number] H[place]
--- NOTE | 2018-10-22 19:56 | CON ---
DATE OF CONSULTATION: 10/22/2018 HISTORY OF PRESENT ILLNESS: In short, the patient is a 67-year-old -[place] female with a history of dementia, history of mood spectrum disorder, multiple medical issues including coronary artery disease, gastric bypass, diabetes, celiac disease, DVT, TIA. The patient was admitted on the medical site for evaluation of diarrhea and blood vomiting for the past three weeks. Psych consult was called because the patient has a history of dementia and history of mood spectrum disorder. The patient was seen and examined today on the medical site. This lyric writer is very familiar with this patient from the previous admission from the psychiatric inpatient unit, which took place here in [place] in 12/2017. The patient presented to be alert and oriented to place as well as month only, but not year, 2017 the patient feels now. The patient does not know what is the date and day of the week. The patient reported that she came to the hospital because she has diarrhea and blood in vomit. Also, the patient reported that she has a history of falls, which is correct based on the report. Besides that, the patient was confabulating, said that she remembers this lyric writer, but does not remember what is her name. The patient seems to be forgetful, but trying to mask that with general statements. Besides that, the patient denied hearing voices, denied seeing things. The patient also denied any thoughts of harming herself or others. At the same time, the patient has reported that she was depressed, depends on the day. The patient reported that she was working for [employer] and right now it is very hard for her to be home and not working. The patient reported that she has good appetite and fair sleep. Collateral information was obtained from the nursing staff. The patient does not exhibit any aggressive or agitated behavior. The patient is compliant with unit rules and regulations. Has fair appetite and sleep. VITAL SIGNS: Reviewed. Temperature 97.3, pulse is 70, blood pressure 104/65, respirations 18, oxygen saturation is 99. MEDICATIONS: Reviewed. The patient is on Tylenol. Wellbutrin was started by medical team. Plavix 75 mg daily, digoxin 0.125 mg daily. The patient is on Namenda, Ferrex, Inderal, sodium chloride and thiamine. LABORATORY DATA: Labs reviewed. Chemistry reviewed. Urinalysis reviewed. Microbiology reviewed. MENTAL STATUS EXAMINATION: The patient presented to be alert. The patient knows that she is in [facility]. The patient knows the month, but was off date and year. The patient does not remember this lyric writer. Intermittent eye contact. Mood described as "it depends on my day." Affect was reactive. Mood congruent. Thought process, the patient was confabulating. Thought Content: The patient denied visual, auditory, or tactile hallucinations. Denied paranoid ideation. The patient does not present to be psychotic, but forgetful. The patient denied thoughts of harming herself or others, denied intent or plan. Insight and judgment seem to be limited. Impulses are well controlled. IMPRESSION: As per history, the patient has dementia, which was diagnosed for the past few years. The patient has mood spectrum disorder. PLAN: This lyric writer is very familiar with this patient's history. Family is kind of difficult in a way that they do not want to place the patient into the fdc. The patient's daughter wants the patient to stay at home despite the advice from this lyric writer that the patient needs to be placed in a fdc, but this is the patient's family's choice as long as the patient is not a danger to self or others. Meanwhile, the patient's daughter, who is power of tax attorney, needs to be involved into the patient's care. The patient does not present to be agitated or depressed or suicidal. This lyric writer will sign off. Medications the patient was stabilized on in the past were Seroquel and Wellbutrin. Treatment plan should be discussed with the patient's family. [employer] need to be involved, Case Management as well. Should you have any questions, give me a call back. Thank you very much for letting me participate in the care of your patient. Carla Wilkinson MD
[2018-10-23] MEDS ORDERED: Barium Sulfate Susp 2.1% w/v, 2.0% w/w 450 mL Bottle PO ONE (05:28)
[2018-10-23] MEDS: Iron Complex Polysacch 150mg Cap PO SCH (09:47)
--- NOTE | 2018-10-23 10:30 | CT ---
Date of service: 10/23/2018 PROCEDURE: CT Abdomen and Pelvis without intravenous contrast HISTORY: hematochezia COMPARISON: None. TECHNIQUE: Without contrast.. Contrast dose: Radiation dose: Total exam DLP = 585.24 mGy-cm. This CT exam was performed using one or more of the following dose reduction techniques: Automated exposure control, adjustment of the mA and/or kV according to patient size, and/or use of iterative reconstruction technique. FINDINGS: LOWER THORAX: Unremarkable. LIVER: Unremarkable. No gross lesion or ductal dilatation. GALLBLADDER AND BILE DUCTS: Unremarkable. PANCREAS: Unremarkable. No gross lesion or ductal dilatation. SPLEEN: Unremarkable. ADRENALS: Unremarkable. No mass. KIDNEYS AND URETERS: Unremarkable. No hydronephrosis. No solid mass. VASCULATURE: Unremarkable. No aortic aneurysm. No aortic atherosclerotic calcification or mural plaque present. BOWEL: Unremarkable. No obstruction. No gross mural thickening. The stomach is moderately distended and filled with debris. A suture line is seen along the lesser curvature of the stomach consistent with a gastric sleeve. APPENDIX: Unremarkable. Normal appendix. PERITONEUM: Unremarkable. No free fluid. No free air. LYMPH NODES: Unremarkable. No enlarged lymph nodes. BLADDER: Unremarkable. REPRODUCTIVE: Unremarkable. BONES: No acute fracture. OTHER FINDINGS: None. IMPRESSION: The stomach is moderately distended and filled with debris. A suture line is seen along the lesser curvature of the stomach consistent with a gastric sleeve. No acute intra-abdominal findings
--- NOTE | 2018-10-23 10:45 | CP.PCM.PN ---
Subjective - Date & Time of Evaluation Date of Evaluation: 10/23/18 Time of Evaluation: 10:37 - Subjective Subjective: Gastroenterology Fellow/PGY6 Progress Note for Dr. Boyer Patient denies abdominal pain. Tolerated diabetic diet without vomiting. No further episodes of diarrhea or BRBPR. No bowel movement since admission. A 12- point review of systems negative except for as above. Objective - Vital Signs/Intake and Output Vital Signs (last 24 hours): Temp Pulse Resp BP Pulse Ox 98 F 76 20 138/68 99 10/23/18 05:40 10/23/18 05:40 10/23/18 05:40 10/23/18 05:40 10/23/18 05:40 Intake and Output: 10/23/18 10/23/18 06:59 18:59 Intake Total 720 Balance 720 - Medications Medications: Current Medications Acetaminophen (Tylenol 325mg Tab) 650 mg PO Q4H PRN PRN Reason: Pain, Mild (1-3) Bupropion HCl (Wellbutrin) 75 mg PO DAILY [facility] Last Admin: 10/23/18 09:47 Dose: 75 mg Clopidogrel Bisulfate (Plavix) 75 mg PO DAILY [facility] Last Admin: 10/23/18 09:48 Dose: 75 mg Digoxin (Digoxin) 0.125 mg PO 1400 [facility] Last Admin: 10/22/18 14:50 Dose: 0.125 mg Memantine (Namenda) 10 mg PO BID [facility] Last Admin: 10/23/18 09:48 Dose: 10 mg Polysaccharide Iron Complex (Ferrex-150) 150 mg PO DAILY [facility] Last Admin: 10/23/18 09:47 Dose: 150 mg Propranolol HCl (Inderal) 40 mg PO DAILY [facility] Last Admin: 10/23/18 09:47 Dose: 40 mg Thiamine HCl (Vitamin B1 Tab) 100 mg PO DAILY [facility] Last Admin: 10/23/18 09:48 Dose: 100 mg - Labs Labs: 10/22/18 07:48 10/22/18 07:48 - Constitutional Appears: Non-toxic, No Acute Distress - Head Exam Head Exam: ATRAUMATIC, NORMOCEPHALIC - Eye Exam Eye Exam: EOMI, PERRL. absent: Scleral icterus Pupil Exam: PERRL. absent: Miosis, Mydriatic - ENT Exam ENT Exam: Mucous Membranes Moist, Normal Oropharynx - Neck Exam Neck Exam: Full ROM, Normal Inspection - Respiratory Exam Respiratory Exam: Clear to Ausculation Bilateral. absent: Rales, Rhonchi, Wheezes - Cardiovascular Exam Cardiovascular Exam: RRR, +S1, +S2. absent: Gallop, Rubs - GI/Abdominal Exam GI & Abdominal Exam: Soft, Normal Bowel Sounds. absent: Distended, Firm, Guarding, Rigid, Tenderness, Organomegaly, Rebound - Extremities Exam Extremities Exam: Normal Inspection - Neurological Exam Neurological Exam: Alert, Awake - Psychiatric Exam Psychiatric exam: Normal Affect, Normal Mood - Skin Skin Exam: Dry, Intact, Normal Color, Warm Assessment and Plan - Assessment and Plan (Free Text) Assessment: 67 year old female with PMH of Dementia, gastric sleeve, Diabetes, CAD s/p PCI, DVT, and TIA (on Plavix) presenting with intermittent diarrhea with BRBPR. 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 Prior flexible sigmoidoscopy 08/2017 intra-luminally showed diffuse sigmoid/descending colon moderate inflammation with biopsies negative for active colitis or dysplasia. Possible colonoscopy many years ago endorsed to be normal. Plan: -follow up CT A/P to rule out acute intra-abdominal pathology -follow up celiac serologies -tolerated diabetic diet -no further episodes of diarrhea -outpatient EGD and colonoscopy with Plavix is held for five days prior to proc edures -will follow clinical course
[2018-10-23] MEDS: Digoxin 125 mcg (0.125 mg) Tab PO SCH (13:01)
--- NOTE | 2018-10-23 20:23 | PN ---
DATE: 10/23/2018 SUBJECTIVE: The patient is a 67-year-old. The patient was seen and examined on the bedside on 10/23/2018. The patient just came back after a CAT scan of the abdomen. As per the patient, still she has diarrhea, has abdominal pain. No fever. No chills. No hematuria. No hematochezia. No headache. No dizziness. No chest pain. No palpitations. PHYSICAL EXAMINATION VITAL SIGNS: Temperature 97.6, pulse 67, blood pressure 114/64, and respiratory rate 18. HEENT: Head; normocephalic and atraumatic. Eyes; PERRLA. Extraocular muscles intact. Conjunctiva clear. Nose patent. Mucous membranes moist. NECK: Supple. No carotid bruit. No thyromegaly. CHEST: Bilaterally symmetrical. HEART: S1 and S2 positive. LUNGS: Clear to auscultation. ABDOMEN: Soft. Bowel sounds present. No organomegaly. EXTREMITIES: No edema. No cyanosis. NEUROLOGIC: Awake and alert. Moving all four extremities. No focal deficit. MEDICATIONS: Digoxin, iron, Inderal, Namenda, Plavix, Tylenol, thiamin, and Wellbutrin. LABORATORY DATA: White blood cell 3.5, hemoglobin 11.4, hematocrit 34, and platelets 110. Sodium 137, potassium 3.4, glucose 61, magnesium 2.5. ASSESSMENT AND PLAN: Ms Willow Cast is a 67-year-old lady with leukopenia, anemia, thrombocytopenia, it means pancytopenia, hypokaliemia we will replace, hypomagnesemia, hypoglycemia. The patient came with abdominal pain and diarrhea, went for CAT scan of abdomen and pelvis. According to Dr. Joel Hidalgo, the patient's stomach is moderately distended and filled with debris. A suture line is seen along the lesser curvature of the stomach consistent with gastric sleeve. No acute intraabdominal findings present. Seen by Gastroenterology. History of dementia, diabetes, coronary artery disease, deep venous thrombosis, transient ischemic attack on Plavix. Esophagogastroduodenoscopy was done in 2017 showed double barrel gastric body opening into the antrum and high up opening into the folds of the due to Plavix. Prior sigmoidoscopy in 2018, intraluminally showed diffuse sigmoid fat stranding, descending colon moderate inflammation and with biopsies negative for active colitis or dysplasia, possible colonoscopy many years ago and those to be normal as per the patient. Seen by the psychiatrist, Dr. Carla Wilkinson. CAT of the head done. The patient with mood spectrum disorder. The patient is on Seroquel and Wellbutrin. Gastrointestinal and deep venous thrombosis prophylaxis. We will follow. Fariha Olvera MD MTDD
[2018-10-24 06:52] LABS: HEMOGLOBIN 11.1 g/dL (12.0-16.0); MEAN CELL VOLUME 102.1 fl (80.0-105.0); MEAN CORPUSCULAR HEMOGLOBIN 33.9 pg (25.0-35.0); MEAN CORPUSCULAR HGB CONC 33.2 g/dl (31.0-37.0); MEAN PLATELET VOLUME 9.1 fl (7.0-11.0); RBC 3.27 10^6/uL (3.5-6.1); RED CELL DISTRIBUTION WIDTH 15.1 % (11.5-14.5)
[2018-10-24 07:14] LABS: LDL CHOLESTEROL 72 mg/dL (0-129)
[2018-10-24 07:23] LABS: IRON 33 ug/dL (45-180)
[2018-10-24 07:31] LABS: % IRON SATURATION 13 % (20-55); TOTAL IRON BINDING CAPACITY 248 ug/dL (265-497)
[2018-10-24 07:59] LABS: AMYLASE 76 U/L (35-125); BLOOD UREA NITROGEN 6 mg/dL (7-21); CALCIUM 8.5 mg/dL (8.4-10.5); GFR NON-AFRICAN AMERICAN > 60; HDL CHOLESTEROL 98 mg/dL (29-60); LIPASE 128 U/L (23-300)
--- NOTE | 2018-10-24 08:24 | HP ---
DATE OF EXAM: 10/21/2018 The patient was seen and examined at the bedside on 10/21/2018 in the emergency room. CHIEF COMPLAINTS: Diarrhea with blood and abdominal pain. HISTORY OF PRESENT ILLNESS: Ms. Willow Cast is 67-year-old female with past medical history of dementia, coronary artery disease, single-vessel percutaneous coronary intervention, gastric bypass, type 2 diabetes mellitus with celiac disease, diverticulitis, TIA, depression and came to the emergency room complaining of diarrhea, hematochezia, abdominal pain that is going on from 3 weeks. The patient has a history of depression also. The patient admits to eye pain and headache. She also has history of frequent falls. No fever. No chills. No hematuria. No hematochezia. PAST MEDICAL HISTORY: As above. Congestive heart failure, hypertension, COPD, TIA, glasses, type 2 diabetes mellitus, anemia, arthritis, falls, GERD, dyspepsia, anxiety and depression, history of hallucinations and history of cardiac stenting. FAMILY HISTORY: Father and mother noncontributory. HABITS: Former smoker, now not smoking. No drugs and no ethanol as per the patient. ALLERGIES: THE PATIENT IS ALLERGIC WITH GLUTEN, GIVING DIARRHEA. REVIEW OF SYSTEMS: The patient was seen and examined on the bedside. Still complaining of abdominal pain and diarrhea and headache. No fever. No chills. No hematuria. No hematochezia. PHYSICAL EXAMINATION: VITAL SIGNS: Temperature 98.5, pulse 102, respiratory rate 18, blood pressure 130/80 and pulse oximetry 100%. HEENT: Head; normocephalic and atraumatic. Eyes; PERRLA. Extraocular muscles intact. Conjunctiva clear. Nose patent. Mucous membranes moist. NECK: Supple. No carotid bruits. No JVD or thyromegaly. CHEST: Bilateral symmetrical. HEART: S1 and S2, positive. LUNGS: Clear to auscultation. ABDOMEN: Soft. Bowel sounds present. No organomegaly. EXTREMITIES: No edema. No cyanosis. NEUROLOGIC: The patient is awake and alert. Moving all four extremities. LABORATORY DATA: White blood cell is 4.0, hemoglobin 11.4, hematocrit 33.6 and platelets 173. Sodium 136, potassium 3.1, BUN 12, creatinine 1.0 and glucose 117. ASSESSMENT AND PLAN: Ms. Willow Cast is a 67-year-old lady with hypokalemia, hyperglycemia, hypomagnesemia replaced, leukopenia and anemia. CAT scan of the head done, reviewed by me. She came with abdominal pain, diarrhea with blood. Ordered the celiac disease panel. Gluten free diet. History of gastric sleeve, dementia, coronary artery disease, deep venous thrombosis, transient ischemic attack and intermittent hematochezia. We admitted the patient. Called Gastroenterology consult. Repeat labs. We will follow up. Fariha Olvera MD
[2018-10-24] MEDS: Iron Complex Polysacch 150mg Cap PO SCH (10:38)
--- NOTE | 2018-10-24 12:40 | CP.PCM.PN ---
<Patricia Hayden - Last Filed: 10/24/18 21:51> Subjective - Date & Time of Evaluation Date of Evaluation: 10/24/18 Time of Evaluation: 12:32 - Subjective Subjective: Patricia Hayden, PGY2, GI progress Note for Dr Boyer: Patient seen and examined at bedside. No acute events overnight. Patient tolerating PO HHD diet well. No BMs for past 2 days. Last BM in hospital was nonbloody, soft and brown. No dizziness, abdominal pain. Objective - Vital Signs/Intake and Output Vital Signs (last 24 hours): Temp Pulse Resp BP Pulse Ox 97.8 F 67 18 120/76 98 10/24/18 06:00 10/24/18 10:38 10/24/18 06:00 10/24/18 10:38 10/24/18 06:00 Intake and Output: 10/24/18 10/24/18 06:59 18:59 Intake Total 240 Balance 240 - Medications Medications: Current Medications Acetaminophen (Tylenol 325mg Tab) 650 mg PO Q4H PRN PRN Reason: Pain, Mild (1-3) Bupropion HCl (Wellbutrin) 75 mg PO DAILY [facility] Last Admin: 10/24/18 10:40 Dose: 75 mg Clopidogrel Bisulfate (Plavix) 75 mg PO DAILY [facility] Last Admin: 10/24/18 10:40 Dose: 75 mg Digoxin (Digoxin) 0.125 mg PO 1400 [facility] Last Admin: 10/23/18 13:01 Dose: 0.125 mg Memantine (Namenda) 10 mg PO BID [facility] Last Admin: 10/24/18 10:39 Dose: 10 mg Polysaccharide Iron Complex (Ferrex-150) 150 mg PO DAILY [facility] Last Admin: 10/24/18 10:38 Dose: 150 mg Propranolol HCl (Inderal) 40 mg PO DAILY [facility] Last Admin: 10/24/18 10:38 Dose: 40 mg Thiamine HCl (Vitamin B1 Tab) 100 mg PO DAILY [facility] Last Admin: 10/24/18 10:40 Dose: 100 mg - Labs Labs: 10/24/18 06:20 10/24/18 06:20 - Additional Findings Additional findings: - Constitutional Appears: Non-toxic, No Acute Distress, Older Than Stated Age - Head Exam Head Exam: ATRAUMATIC, NORMOCEPHALIC - Eye Exam Eye Exam: EOMI, PERRL. absent: Conjunctival injection, Nystagmus, Scleral icterus Pupil Exam: NORMAL ACCOMODATION, PERRL. absent: Irregular, Unequal - ENT Exam ENT Exam: Mucous Membranes Moist - Neck Exam Neck exam: Positive for: Full Rom - Respiratory Exam Respiratory Exam: Clear to Auscultation Bilateral, NORMAL BREATHING PATTERN. absent: Accessory Muscle Use, Rhonchi, Wheezes - Cardiovascular Exam Cardiovascular Exam: RRR, +S1, +S2. absent: Systolic Murmur - GI/Abdominal Exam GI & Abdominal Exam: Normal Bowel Sounds, Soft. absent: Distended, Firm, Guarding, Rebound, Rigid, Tenderness - Extremities Exam Extremities exam: Positive for: normal inspection. Negative for: calf tenderness, pedal edema - Back Exam Back exam: NORMAL INSPECTION - Neurological Exam Neurological exam: Alert, Oriented x3 - Psychiatric Exam Psychiatric exam: Normal Affect - Skin Skin Exam: Normal Color, Warm Assessment and Plan - Assessment and Plan (Free Text) Assessment: # Intermittent Hematochezia, 2/2 AVM vs colon cancer, less likely IBD # Anemia, r/o celiac disease # Constipation # CAD s/p PCI # Gastric bypass # DM # TIA # DVT - CT abd pelvis showed moderately distended stomach, filled with debris. A suture line along lesser curvature, c/w gastric sleeve. - continue with HHD - gluten free, carb consistent - TTG 8, pending rest of celiac disease profile - miralax prn constipation - Recommend EGD, colonoscopy outpatient - Further recs per Dr Boyer. Case seen and discussed with Dr Boyer. <Gee Boyer V - Last Filed: 10/25/18 23:55> Objective - Vital Signs/Intake and Output Vital Signs (last 24 hours): Temp Pulse Resp BP Pulse Ox 98 F 83 18 129/72 92 L 10/25/18 18:00 10/25/18 22:00 10/25/18 18:00 10/25/18 18:00 10/25/18 18:00 Intake and Output: 10/25/18 10/26/18 18:59 06:59 Intake Total 1310 Balance 1310 - Medications Medications: Current Medications Acetaminophen (Tylenol 325mg Tab) 650 mg PO Q4H PRN PRN Reason: Pain, Mild (1-3) Last Admin: 10/25/18 10:14 Dose: 650 mg Bupropion HCl (Wellbutrin) 75 mg PO DAILY [facility] Last Admin: 10/25/18 10:15 Dose: 75 mg Clopidogrel Bisulfate (Plavix) 75 mg PO DAILY [facility] Last Admin: 10/25/18 10:15 Dose: 75 mg Digoxin (Digoxin) 0.125 mg PO 1400 [facility] Last Admin: 10/25/18 13:40 Dose: 0.125 mg Lorazepam (Ativan) 0.5 mg PO BID [facility]; Protocol Last Admin: 10/25/18 21:30 Dose: 0.5 mg Memantine (Namenda) 10 mg PO BID [facility] Last Admin: 10/25/18 17:48 Dose: 10 mg Polyethylene Glycol (Miralax) 17 gm PO DAILY PRN PRN Reason: Constipation Polysaccharide Iron Complex (Ferrex-150) 150 mg PO DAILY [facility] Last Admin: 10/25/18 10:15 Dose: 150 mg Propranolol HCl (Inderal) 40 mg PO DAILY [facility] Last Admin: 10/25/18 10:15 Dose: 40 mg Thiamine HCl (Vitamin B1 Tab) 100 mg PO DAILY [facility] Last Admin: 10/25/18 10:15 Dose: 100 mg - Labs Labs: 10/24/18 06:20 10/24/18 06:20 Attending/Attestation - Attestation I have personally seen and examined this patient.: Yes I have fully participated in the care of the patient.: Yes I have reviewed all pertinent clinical information, including history, physical exam and plan: Yes Notes (Text): carmelo 10/25/18 23:55
[2018-10-24] MEDS ORDERED: POLYETHYLENE GLYCOL 3350 17 GM/Dose PACKET PO PRN (12:44)
[2018-10-24] MEDS: Digoxin 125 mcg (0.125 mg) Tab PO SCH (13:26)
[2018-10-24 13:32] LABS: FOLATE 13.4 ng/mL
[2018-10-24] MEDS ORDERED: Potassium Chloride 10 mEq ER Tab PO ONE (17:00)
--- NOTE | 2018-10-24 21:36 | PN ---
DATE: 10/24/2018 Case was discussed with Dr. Olvera. She is in agreement with the plan. SUBJECTIVE: This is a 67-year-old female, came in with lower GI bleed, rectal bleed. The patient has history of dementia, GERD, hypertension, history of tobacco use, congestive heart failure, obesity, hypothyroidism, depression, rheumatic disorders. Saw the patient today. She was in the room. She was alert, oriented two to three. No acute distress. Denies pain, palpitations, shortness of breath. Denies rectal bleeding. Denies nausea or vomiting. She reports still some depression. PHYSICAL EXAMINATION: VITAL SIGNS: Temperature 97.5, pulse rate 84, blood pressure 125/77, heart rate 93, respiratory rate 18, saturation 97% on room air. HEENT: Normocephalic. PERRLA. Mucous membranes moist. NECK: Supple. Normal on inspection. RESPIRATORY: Clear to auscultation. CARDIOVASCULAR: S1 and S2. Regular rhythm. No murmur. No gallop. ABDOMEN: Distended, soft. No organomegaly. SKIN: Normal color, intact. No cyanosis. EXTREMITIES: The patient is moving all extremities. NEUROLOGIC: The patient is alert, oriented x2 to 3. Cranial nerves II through XII intact with some cognitive deficits. MEDICATIONS: The patient is on Tylenol 325 mg every 4 hours p.r.n., Wellbutrin 75 mg p.o. daily, Plavix 75 mg daily, digoxin 0.125 mg p.o. daily, Namenda 10 mg b.i.d., MiraLax 17 g p.o. daily, polysaccharide iron complex 150 mg daily, K-Dur 10 mEq daily, Inderal 40 mg p.o. daily, thiamine (vitamin B1) 100 mg p.o. daily. LABORATORY DATA: White blood cells 3, hemoglobin is 11.1, hematocrit is 33.4, platelet count is 112. Sodium is 138, potassium 3.2, BUN is 6, GFR is over 60. ASSESSMENT AND PLAN: Gastrointestinal bleed, gastroesophageal reflux disease, dementia, hypertension, depression, coronary artery disease, dementia. The patient denies feeling anxious but has some depression due to home situation. Discussed with the patient possibility of detention placement if daughter is on board. Because daughter is power of staff attorney, the patient is not happy with daughter being the power of staff attorney. Says that a lot of health problems and depression stands from her living situation. The patient was seen by Psychiatry. The patient is being followed by Gastroenterology. Abdominal CT scan was done and reviewed. The patient also was seen by top lifter. We will plan for discharge as of Gastroenterology would like to explore the possibility of the patient going to detention. We will follow up with the social service. Talked to daughter and now daughter initially agrees to get a detention, however, that is not with the patient as now the patient does not feel she wants the daughter to be the power of staff attorney. We will follow up with social service. The patient was hypokalemic today two to three hours 3.2. We added 10 mEq x1 to the patient today. We will follow up. ALL ABOVE NOTED , AGREED WITH TREATMENT PLAN . D/D WITH SAND CLEANING MACHINE OPERATOR , WILL F/U Jonathon Sherman APN Fariha Olvera MD [facility]
[2018-10-25] MEDS: Iron Complex Polysacch 150mg Cap PO SCH (10:15)
[2018-10-25] MEDS: Digoxin 125 mcg (0.125 mg) Tab PO SCH (13:40)
--- NOTE | 2018-10-25 15:53 | PN ---
DATE: 10/25/2018 The patient was seen and examined at the bedside on 10/25/2018. SUBJECTIVE: Feeling comfortable. Still having complaining about diarrhea. No fever. No chills. No hematuria. No hematochezia. No headache. No dizziness. No chest pain. No palpitation. PHYSICAL EXAMINATION: VITAL SIGNS: Temperature 97.7, pulse 69, blood pressure 137/70, and respiratory rate 18. HEENT: Head; normocephalic and atraumatic. Eyes; PERRLA. Extraocular muscles intact. Conjunctiva clear. Nose patent. Mucous membranes moist. NECK: Supple. No carotid bruits. No JVD or thyromegaly. CHEST: Bilaterally symmetrical. HEART: S1 and S2 positive. LUNGS: Clear to auscultation. ABDOMEN: Soft. Bowel sounds present. No organomegaly. EXTREMITIES: No edema. No cyanosis. NEUROLOGIC: The patient is awake and alert. Moving all four extremities. No focal deficit. MEDICATIONS: Digoxin, iron, Inderal, MiraLax, Namenda, Plavix, Tylenol, thiamin, and Wellbutrin. LABORATORY DATA: White blood cell 3.0, hemoglobin 11.1, hematocrit 33.4, and platelets 112. Glucose 83 and 59, transferrin 185, protein 30, ketones positive and bilirubin . ASSESSMENT AND PLAN: Ms. Willow Cast is a 67-year-old lady with anemia, leukopenia, thrombocytopenia, pancytopenia, glucose is up and down, proteinuria, ketonuria, bilirubinuria, glutamine, immunoglobulin A is also positive. History of gastrointestinal bleeding. Discussion done with Dr. Boyer. He wants to do endoscopy. The patient had coronary artery disease, single-vessel percutaneous coronary intervention, gastric bypass, transient ischemic attack, and deep venous thrombosis. According to Dr. Boyer, they will hold Plavix. May be the patient has colonoscopy. Repeat labs. Physical therapy; out of bed. We will follow up. Fariha Olvera MD [facility]
[2018-10-26 06:52] LABS: INR 1.1; PROTHROMBIN TIME 12.2 SECONDS (9.4-12.5)
[2018-10-26 06:53] LABS: EOS % 0.3 % (1.5-5.0); HEMOGLOBIN 11.1 g/dL (12.0-16.0); LYMPH # 1.3 (1.2-3.4); LYMPH % 39.1 % (22.0-35.0); MEAN CELL VOLUME 101.5 fl (80.0-105.0); MEAN CORPUSCULAR HGB CONC 33.5 g/dl (31.0-37.0); MONO # 0.2 (0.1-0.6); MONO % 6.1 % (1.0-6.0); RBC 3.26 10^6/uL (3.5-6.1); RED CELL DISTRIBUTION WIDTH 15.1 % (11.5-14.5); WHITE BLOOD COUNT 3.3 10^3/uL (4.5-11.0)
[2018-10-26 07:04] LABS: ALB/GLOB RATIO 1.1 (1.1-1.8); ALBUMIN 3.4 g/dL (3.0-4.8); ALT/SGPT 8 U/L (7-56); AST/SGOT 24 U/L (14-36); BLOOD UREA NITROGEN 8 mg/dL (7-21); CALCIUM 8.8 mg/dL (8.4-10.5); GFR NON-AFRICAN AMERICAN 55
--- NOTE | 2018-10-26 10:24 | CP.PCM.PN ---
<Patricia Hayden - Last Filed: 10/26/18 10:52> Subjective - Date & Time of Evaluation Date of Evaluation: 10/26/18 Time of Evaluation: 10:24 - Subjective Subjective: Patricia Hayden, PGY2, GI progress Note for Dr Boyer: Patient seen and examined at bedside. No acute events overnight. Patient tolerating PO diet well. Last BM this morning, soft and brown, no blood. Denies nausea, vomiting, dizziness. Patient has occasional confusion, psych on board. Objective - Vital Signs/Intake and Output Vital Signs (last 24 hours): Temp Pulse Resp BP Pulse Ox 98.1 F 66 18 117/64 96 10/26/18 06:00 10/26/18 06:00 10/26/18 06:00 10/26/18 06:00 10/26/18 06:00 Intake and Output: 10/26/18 10/26/18 06:59 18:59 Intake Total 1310 Balance 1310 - Medications Medications: Current Medications Acetaminophen (Tylenol 325mg Tab) 650 mg PO Q4H PRN PRN Reason: Pain, Mild (1-3) Last Admin: 10/25/18 10:14 Dose: 650 mg Bupropion HCl (Wellbutrin) 75 mg PO DAILY [facility] Last Admin: 10/25/18 10:15 Dose: 75 mg Clopidogrel Bisulfate (Plavix) 75 mg PO DAILY [facility] Last Admin: 10/25/18 10:15 Dose: 75 mg Digoxin (Digoxin) 0.125 mg PO 1400 [facility] Last Admin: 10/25/18 13:40 Dose: 0.125 mg Lorazepam (Ativan) 0.5 mg PO BID [facility]; Protocol Last Admin: 10/26/18 09:09 Dose: 0.5 mg Memantine (Namenda) 10 mg PO BID [facility] Last Admin: 10/25/18 17:48 Dose: 10 mg Polyethylene Glycol (Miralax) 17 gm PO DAILY PRN PRN Reason: Constipation Polysaccharide Iron Complex (Ferrex-150) 150 mg PO DAILY [facility] Last Admin: 10/25/18 10:15 Dose: 150 mg Propranolol HCl (Inderal) 40 mg PO DAILY [facility] Last Admin: 10/25/18 10:15 Dose: 40 mg Thiamine HCl (Vitamin B1 Tab) 100 mg PO DAILY [facility] Last Admin: 10/25/18 10:15 Dose: 100 mg - Labs Labs: 10/26/18 06:10 10/26/18 06:10 PT 12.2 SECONDS (9.4-12.5) 10/26/18 06:10 INR 1.10 10/26/18 06:10 - Additional Findings Additional findings: - Constitutional Appears: Non-toxic, No Acute Distress, Older Than Stated Age - Head Exam Head Exam: ATRAUMATIC, NORMOCEPHALIC - Eye Exam Eye Exam: EOMI, PERRL. absent: Conjunctival injection, Nystagmus, Scleral icte martell Pupil Exam: NORMAL ACCOMODATION, PERRL. absent: Irregular, Unequal - ENT Exam ENT Exam: Mucous Membranes Moist - Neck Exam Neck exam: Positive for: Full Rom - Respiratory Exam Respiratory Exam: Clear to Auscultation Bilateral, NORMAL BREATHING PATTERN. absent: Accessory Muscle Use, Rhonchi, Wheezes - Cardiovascular Exam Cardiovascular Exam: RRR, +S1, +S2. absent: Systolic Murmur - GI/Abdominal Exam GI & Abdominal Exam: Normal Bowel Sounds, Soft. absent: Distended, Firm, Guarding, Rebound, Rigid, Tenderness - Extremities Exam Extremities exam: Positive for: normal inspection. Negative for: calf tenderness, pedal edema - Back Exam Back exam: NORMAL INSPECTION - Neurological Exam Neurological exam: Alert, Oriented x3 - Psychiatric Exam Psychiatric exam: Normal Affect - Skin Skin Exam: Normal Color, Warm Assessment and Plan - Assessment and Plan (Free Text) Assessment: # Intermittent Hematochezia, 2/2 AVM vs colon cancer, less likely IBD # Anemia # Celiac disease # Constipation # CAD s/p PCI # Gastric bypass # DM # TIA # DVT - CT abd pelvis showed moderately distended stomach, filled with debris. A suture line along lesser curvature, c/w gastric sleeve. - continue with HHD - gluten free, carb consistent - continue with PO iron supplementation - TTG 8, endomysial IgA ab positive, IgA 318, indicative of serological celiac disease. Recommend small bowel biopsy via EGD. - miralax prn constipation - Recommend EGD, colonoscopy outpatient - will start Pepcid 40 mg PO hs. - Further recs per Dr Boyer. Case seen and discussed with Dr Boyer. <Gee Boyer V - Last Filed: 10/26/18 23:01> Objective - Vital Signs/Intake and Output Vital Signs (last 24 hours): Temp Pulse Resp BP Pulse Ox 98.2 F 97 H 19 147/79 96 10/26/18 18:00 10/26/18 18:00 10/26/18 18:00 10/26/18 18:00 10/26/18 18:00 Intake and Output: 10/26/18 10/27/18 18:59 06:59 Intake Total 956 Output Total 5 Balance 951 - Medications Medications: Current Medications Acetaminophen (Tylenol 325mg Tab) 650 mg PO Q4H PRN PRN Reason: Pain, Mild (1-3) Last Admin: 10/26/18 11:13 Dose: 650 mg Bupropion HCl (Wellbutrin) 75 mg PO DAILY [facility] Last Admin: 10/26/18 11:14 Dose: 75 mg Clopidogrel Bisulfate (Plavix) 75 mg PO DAILY [facility] Last Admin: 10/25/18 10:15 Dose: 75 mg Digoxin (Digoxin) 0.125 mg PO 1400 [facility] Last Admin: 10/26/18 14:04 Dose: 0.125 mg Famotidine (Pepcid) 40 mg PO HS [facility] Last Admin: 10/26/18 22:37 Dose: 40 mg Lorazepam (Ativan) 1 mg PO BID [facility]; Protocol Last Admin: 10/26/18 17:04 Dose: 1 mg Memantine (Namenda) 10 mg PO BID [facility] Last Admin: 10/26/18 17:05 Dose: 10 mg Polyethylene Glycol (Miralax) 17 gm PO DAILY PRN PRN Reason: Constipation Polysaccharide Iron Complex (Ferrex-150) 150 mg PO DAILY [facility] Last Admin: 10/26/18 11:14 Dose: 150 mg Propranolol HCl (Inderal) 40 mg PO DAILY [facility] Last Admin: 10/26/18 11:15 Dose: 40 mg Thiamine HCl (Vitamin B1 Tab) 100 mg PO DAILY [facility] Last Admin: 10/26/18 11:14 Dose: 100 mg - Labs Labs: 10/26/18 06:10 10/26/18 06:10 PT 12.2 SECONDS (9.4-12.5) 10/26/18 06:10 INR 1.10 10/26/18 06:10 Attending/Attestation - Attestation I have personally seen and examined this patient.: Yes I have fully participated in the care of the patient.: Yes I have reviewed all pertinent clinical information, including history, physical exam and plan: Yes Notes (Text): This patient was seen and evaluated along with the resident team earlier today. There is an addendum to the progress report dictated by the medical economics consultant. Patient is still confused history of depression dementia. History of anemia patient had a celiac disease profile done which is highly positive for celiac disease. History of gastric bypass surgery done in the past. Endoscopy in the past was reviewed. Patient will benefit from EGD and colonoscopy to further evaluate celiac disease and also anemia. The concern is that patient is on Plavix. Would consider EGD and colonoscopy after further optimization. Presently patient is now willing to go for a procedure. We will discuss with the patient's daughter also. The patient is being planned to be discharged transferred to the psych floor. Good reasonable option is before patient is discharged from the psych floor, GI EGD,colonoscopy can be considered if the Plavix can be put on hold for 5 days 10/26/18 22:55
[2018-10-26] MEDS: Iron Complex Polysacch 150mg Cap PO SCH (11:14)
[2018-10-26 13:25] LABS: ENDOMYSIAL AB TITER 1:40 titer (<1:5)
[2018-10-26] MEDS: Digoxin 125 mcg (0.125 mg) Tab PO SCH (14:04)
--- NOTE | 2018-10-26 16:38 | DS ---
Discussed case with Dr. Olvera, she is in agreement with the plan. HISTORY OF PRESENT ILLNESS: A 67-year-old female who came in with chief complaint of lower abdominal pain, diagnoses was GI bleed. PAST MEDICAL HISTORY: Dementia, depression, hypertension, CAD, diabetes mellitus, obesity, congestive heart failure. The patient is a poor historian. SOCIAL HISTORY: No current social history. REVIEW OF SYSTEMS: I saw the patient today. She was alert and awake. Denies depression. Denies shortness of breath, chest pain, abdominal pain, nausea, vomiting and dysuria. PHYSICAL EXAMINATION: VITAL SIGNS: Temperature 97.6, pulse rate 91, blood pressure 154/79 and pulse ox 96% on room air. GENERAL: No acute distress. Chronically ill. HEENT: Normocephalic. PERRLA. Mucous membranes dry. RESPIRATORY: Clear to auscultation. CARDIOVASCULAR: S1 and S2. EXTREMITIES: No edema. GASTROINTESTINAL: Abdomen is soft and distended. No guarding. No tenderness. Positive bowel sounds. SKIN: Intact. Warm to touch. No cyanosis. NEURO: The patient is alert, awake and oriented x3 with some confusion and some cognitive deficits. ASSESSMENT AND PLAN: This is 67-year-old female who came in with lower abdominal pain, gastrointestinal bleed, has history of diabetes, hyperlipidemia, obesity, congestive heart failure, confusion, dementia, lives at home with daughter. Daughter is the power of vendor quality supervisor. The patient has expressed some depression during her stay; however, today she denies depression, but thing according to the nurse after I have seen her, she has some agitation. The patient is already on Ativan 0.5, we increased that 1 mg p.o. b.i.d. which she was taking at home. The patient was seen by Gastroenterology and was cleared by Cardio. Gastroenterology wants to do colonoscopy, so we want to put Plavix on hold to do colonoscopy and the patient was seen by Psych. Recommendation for the patient to be inpatient. The patient will be discharge to psych as she is medically cleared. We will followup. ALL ABOVE NOTED, EDUCATION DONE , AGREED WIT ALL ABOVE . EDUCATION DONE . WILL F/U Jonathon Sherman APN Fariha Olvera MD [facility]
[2018-10-27] MEDS: Iron Complex Polysacch 150mg Cap PO SCH (10:00)
[2018-10-27] MEDS: Digoxin 125 mcg (0.125 mg) Tab PO SCH (15:28)
--- NOTE | 2018-10-27 20:54 | CON ---
DATE: 10/27/2018 HISTORY OF PRESENT ILLNESS: This is a 67-year-old female with a history of dementia associated psychotic behaviors and symptoms who has been admitted to the psychiatric unit in 12/2007 in the past for acute psychotic symptoms and agitation. Dr. Wilkinson consulted with patient during this medical hospitalization on 10/22/2018, noted that the patient was aware of the reason why she was admitted. She also was confabulating and trying to minimize her symptoms, denies hearing voices or seeing things or thoughts to harm herself or others, though at the same time she was depressed at times, but this depended on the state she was at and which time she was at. She did not exhibit any aggressive or agitated behavior. Psychiatrist was asked to reconsult due to the patient's onset of delusions yesterday and wandering behaviors, this generally happened in the evenings. Apparently, the patient was confused, acutely disoriented, indicated that she wanted to go home to see her granddaughter. The daughter and granddaughter was there during the day yesterday and had noted that she had been trying to leave the floor. The daughter was called, daughter is POA and the patient typically becomes confused and anxious at night. This was also noted during patient's hospitalization in 12/2017, which indicated that there were family meetings on 12/25/2017 and 12/29/2017, which the POA was strongly recommended and longterm placement be done for patient, but POA at that time refused and POA was educated about the diagnosis, potential risks, continued possible consequences of wandering behavior, but that POA really wanted to take the patient back home with her at that time. Adult Protective Services was also called to follow up on patient and risk management was also involved at that time. The patient was hospitalized during that admission because she was acutely angry, confused, paranoid, going into other peoples' rooms, was in upsetting mode, accusing people of stealing her things, she hit pianos and dress and generally unpredictable throughout the day and night at that point. I met with the patient at bedside, she is calm and cooperative, pleasant. She remembers me from her admission. She is aware she is in the hospital; however, she does become confused about who visited with her yesterday. She does not express to have any acute paranoid delusions. She is not aggressive. She is not hostile. She is not accusatory. She has been cooperative with staff this morning and presently she denies having any depression or suicidal thoughts. The patient does report that consistent with staff notes during this admission, she is thinking about having her daughter not being her POA anymore as she feels like that this is too much stress and work for her. It is unclear what the family dynamics are at this time in that regard, but the patient does not report any anger towards her family and feels they have overall been supportive. Labs and vitals are reviewed. RELEVANT PSYCHIATRIC MEDICATIONS: Include Wellbutrin 75 mg daily, Ativan 1 mg b.i.d. IMPRESSION: The patient has dementia, which was diagnosed two years ago. She apparently has been sundowning consistent with prior presentations and does appear to be with intermittent bouts of forgetfulness and delusions with sundowning consistent with her baseline. I would recommend Seroquel 12.5 mg at bedtime to help with sundowning, however, at this time, she does not meet criteria for a psychiatric admission. I do recommend family meeting with patient as well as patient's daughter, granddaughter, everybody should be involved to discuss patient's disposition and safety thereof. Psychiatry is signing off at this time. Please re-consult waqas. Woody Siu MD
--- NOTE | 2018-10-27 22:14 | PN ---
DATE: 10/27/2018 SUBJECTIVE: The patient is a 67-year-old female. The patient is seen and examined on 10/27/2018. Looking comfortable, but is anxious. She is on one-to-one. Got Ativan. With that, she is little bit lethargic. She is not able to do review of systems. No fever. No chills. No hematuria. No hematochezia. No headaches. No dizziness. No chest pain. No palpitation. PHYSICAL EXAMINATION: VITAL SIGNS: Temperature 98.1, pulse 64, blood pressure 97/54, respiratory rate 16. HEENT: Head: Normocephalic and atraumatic. Eyes: PERRLA. Extraocular muscles are intact. Conjunctivae clear. Nose patent. Mucous membranes moist. NECK: Supple. No carotid bruits. No JVD or thyromegaly. CHEST: Bilaterally symmetrical. HEART: S1 and S2 positive. LUNGS: Clear to auscultation. ABDOMEN: Soft. Bowel sounds present. No organomegaly. EXTREMITIES: No edema. No cyanosis. NEUROLOGIC: The patient is sleepy, arousable. MEDICATIONS: Ativan, digoxin, iron, MiraLax, Namenda, Pepcid, Plavix, Seroquel, Tylenol, vitamin B1, and Wellbutrin. LABORATORY DATA: White blood cells 3.3, hemoglobin 11.1, hematocrit 33.1, platelets 130. Glucose 89. ASSESSMENT AND PLAN: Mrs. Willow Cast is a 67-year-old lady with leukopenia, anemia, thrombocytopenia so pancytopenia, glucose is up and down, proteinuria, ketonuria, and bilirubinuria. The patient has a history of gastric bypass long time ago. Has history of intermittent hematochezia, rule out arteriovenous malformation versus colon cancer, less likely inflammatory bowel disease, celiac disease, constipation, coronary artery disease, status post percutaneous coronary intervention, transient ischemic attack, deep vein thrombosis, history of bipolar, psychosis. CAT scan of abdomen and pelvis reviewed by me showed stomach dilated, filled with debris. Continue gluten-free, carbohydrate consistent diet. Continue with oral iron supplement. TTG 8, endomysial IgA antibody is positive. IgA indicative of serological celiac disease with small bowel biopsy via esophagogastroduodenoscopy. As per Gastroenterology, MiraLax for constipation with Pepcid. The patient is very anxious, trying to do psychiatric transfer, but the patient is not meeting. We will call [facility] and repeat labs. We will follow up. Fariha Olvera MD [facility]
[2018-10-28] MEDS: Iron Complex Polysacch 150mg Cap PO SCH ×2 (10:00→12:23)
[2018-10-28] MEDS: Digoxin 125 mcg (0.125 mg) Tab PO SCH (13:49)
--- NOTE | 2018-10-28 23:34 | PN ---
DATE: 10/28/2018 SUBJECTIVE: The patient is a 67-year-old female. The patient is seen and examined at the bedside on 10/28/2018. Looking comfortable, awake, alert, but completely confused, is on one-to-one. No headache, no dizziness, no chest pain, and no palpitation. PHYSICAL EXAMINATION: VITAL SIGNS: Temperature 98.2, pulse 94, blood pressure 112/51, and respiratory rate 18. HEENT: Head: Normocephalic and atraumatic. Eyes: PERRLA, extraocular muscles intact, conjunctivae clear. Nose patent. Mucous membrane moist. NECK: Supple. No carotid bruits. No JVD or thyromegaly. CHEST: Bilaterally symmetrical. HEART: S1 and S2 positive. LUNGS: Clear to auscultation. ABDOMEN: Soft. Bowel sounds present. No organomegaly. EXTREMITIES: No edema. No cyanosis. NEUROLOGIC: The patient is awake and alert. Moving all four extremities. No focal deficits. MEDICATIONS: Ativan, digoxin, Ferrex, Inderal, MiraLax, Namenda, Pepcid, Plavix, Seroquel, Tylenol, vitamin B1, and Wellbutrin. LABORATORY DATA: White blood cell 3.3, hemoglobin 11.1, hematocrit 33.1, and platelets 130. Glucose 91, 81, and 72. ASSESSMENT AND PLAN: Ms. Willow Cast is a 67-year-old lady with leukopenia, anemia, thrombocytopenia, proteinuria, ketonuria, bilirubinuria, celiac disease, seen by the psychiatrist, Dr. Woody Siu. The patient has dementia, delusions, getting Seroquel. According to the psychiatrist, the patient does not meet criteria for the psychiatric admission. Psychiatry is recommending a family meeting with the patient's daughter and granddaughter, who are involved in the patient's care and safety. Even psychiatrist has signed off the case. The patient has history of gastric bypass, came with gastrointestinal bleeding, director of ancillary services saw the patient. History of coronary artery disease, chronic obstructive pulmonary disease, and history of transient ischemic attack. CAT scan of the abdomen reviewed. Psychiatrist is suggesting discharge home. Repeat labs. We will follow up. Fariha Olvera MD [facility] # [id number]
[2018-10-29 07:07] VITALS: RESP 18
[2018-10-29] MEDS: Iron Complex Polysacch 150mg Cap PO SCH (09:44)
[2018-10-29] MEDS: Digoxin 125 mcg (0.125 mg) Tab PO SCH (17:09)
--- NOTE | 2018-10-30 02:37 | PN ---
DATE: 10/29/2018 SUBJECTIVE: The patient is a 67-year-old female. The patient is seen and examined at the bedside on 10/29/2018. The patient is ready to be discharged, waiting for her daughter. Still on one-to-one. No fever. No chills. No diarrhea. No hematuria. No hematochezia. No swelling of the leg. No nausea, vomiting, or diarrhea. PHYSICAL EXAMINATION: VITAL SIGNS: Temperature 98.2, pulse 94, blood pressure 112/51, respiratory rate 18. HEENT: Head: Normocephalic and atraumatic. Eyes: PERRLA. Extraocular muscles intact. Conjunctivae clear. Nose patent. Mucous membranes moist. NECK: Supple. No carotid bruits. No JVD or thyromegaly. CHEST: Bilateral symmetrical. HEART: S1 and S2 positive. LUNGS: Clear to auscultation. ABDOMEN: Soft. Bowel sounds present. No organomegaly. EXTREMITIES: No edema. No cyanosis. NEUROLOGIC: The patient awake and alert. Moving all four extremities. No focal deficits. MEDICATIONS: Ativan, digoxin, MiraLax, Namenda, Pepcid, Seroquel, Tylenol, vitamin B1, and Wellbutrin. LABORATORY DATA: White blood cells 3.3, hemoglobin 11.1, hematocrit 33.1, platelets 130. Glucose 91. ASSESSMENT AND PLAN: Ms. Willow Cast is a 67-year-old lady with multiple medical problems, history of gastric bypass, leukopenia, anemia, thrombocytopenia, proteinuria, ketonuria, bilirubinuria, celiac disease. Gastroenterology is on the case. History of diarrhea and blood in the stool but according to the lady who is one-to-one, the patient does not have any type of diarrhea and even not a bowel movement. According to psychiatrist, the patient does not need criteria for psychiatric admission. Discussion done with the patient's daughter. She will picking belt operator the mother. She has plan at home. The patient goes to daycare every day. Gastrointestinal and deep venous thrombosis prophylaxis. Repeat labs. We will follow up. Fariha Olvera MD [facility] # [id number]
[2018-10-30 06:07] VITALS: O2SAT 99
[2018-10-30 07:16] LABS: HEMOGLOBIN 14.4 g/dL (12.0-16.0); MEAN CELL VOLUME 103.3 fl (80.0-105.0); MEAN CORPUSCULAR HEMOGLOBIN 34.2 pg (25.0-35.0); MEAN CORPUSCULAR HGB CONC 33.1 g/dl (31.0-37.0); MEAN PLATELET VOLUME 9.7 fl (7.0-11.0); RBC 4.21 10^6/uL (3.5-6.1); RED CELL DISTRIBUTION WIDTH 14.8 % (11.5-14.5); WHITE BLOOD COUNT 3.9 10^3/uL (4.5-11.0)
[2018-10-30 07:41] LABS: CALCIUM 9.8 mg/dL (8.4-10.5)
[2018-10-30] MEDS: Iron Complex Polysacch 150mg Cap PO SCH (11:44)
[2018-10-30 12:41] VITALS: BP 119/70; PULSE 69; TEMP 98
--- NOTE | 2018-10-30 18:51 | PN ---
DATE: 10/30/2018 This case was discussed with Dr. Olvera. She agreed with the treatment plan. SUBJECTIVE: This is a 67-year-old patient that was admitted 10/23/2018 with lower GI bleed, hemorrhage, hematochezia. She has a past medical history of hyperlipidemia, CHF, diabetes mellitus type 2, osteoarthritis, dementia, psychosis, COPD. The patient was seen at the bedside today. She was quite agitated. She had a coat on and belongings packed. Said stated she was leaving the facility. However, there was no discussion of discharge. Patient very confused today. The patient is unable to leave AMA due to dementia diagnosis, and has some psychosis as well. REVIEW OF SYSTEMS: Unable to get. The patient was very agitated, could not go through the systems with patient. There was no apparent shortness of breath, chest pain, or any other pain apparent. OBJECTIVE: VITAL SIGNS: Temperature 98, pulse rate 59, blood pressure 1169/70, respirations 18, and 99% on room air. GENERAL: The patient appears in no acute distress, chronically ill, very agitated and animated today. HEENT: Normocephalic. PERRLA. Mucous membranes dry. NECK: Supple. Normal on inspection. RESPIRATORY: Clear to auscultation. CARDIOVASCULAR: S1 and S2. No JVD. No murmur. No gallop. GI: Abdomen is soft and distended. No organomegaly. VASCULAR: The patient is moving all extremities. Positive pedal pulses. SKIN: Intact. NEUROLOGIC: The patient is alert, disoriented. Cranial nerves II through XII intact. The patient does have some cognitive deficits, paranoia. The patient does have dementia. MEDICATIONS: The patient is taking Tylenol 650 every 4 hours, Wellbutrin 75 mg daily, Plavix 75 p.o. daily, digoxin 0.125 mg p.o. daily, Pepcid 40 mg p.o. at h.s., Ativan 1 mg p.o. b.i.d., Namenda 10 mg p.o. b.i.d., MiraLax 17 g p.o. daily, Ferrex 150 p.o. daily, Inderal 40 mg p.o. daily, Seroquel 12.5 mg daily, and vitamin B1 tab daily. LABORATORY DATA: White blood cells 329, hemoglobin 14.4, hematocrit 43.5, and platelet count 171. Chemistries: Sodium 140, potassium 4.5, BUN 11, creatinine 1.2, GFR 54. Her blood sugar was 138. ASSESSMENT AND PLAN: Leukopenia, white blood cells 8.9. Psychosis, agitation, anxiety, dementia, hypertension. The patient is on digoxin, Plavix. She is on Wellbutrin and Ativan. She is on Namenda. She is on Seroquel. The patient was seen by Psych, not a candidate for inpatient at the moment. Plan is for patient to be off one-to-one for at least 24 hours before discharge, to get the patient back to her baseline, to go back in for the community with her daughter. We will follow up. Jonathon Sherman APN Fariha Olvera MD MTDHaris
[2018-10-30] MEDS: Digoxin 125 mcg (0.125 mg) Tab PO SCH (19:49)
[2018-10-30 19:50] VITALS: PULSE 72
== END 2018-10-30 21:00 | disposition home or self-care (01) | DRG 378 ==
LOC: ED 18:43 → ERH 23:25 → 2RNO 10-22 00:54 → OBSVTOIN 10-23 14:51
PROVIDERS: ADMIT Internal Medicine; ATTEND Internal Medicine
DX: K92.1 Melena (principal); D61.818 Other pancytopenia; F05 Delirium due to known physiological condition; K90.0 Celiac disease; E11.649 Type 2 diabetes mellitus with hypoglycemia without coma; E87.6 Hypokalemia; E83.42 Hypomagnesemia; I11.0 Hypertensive heart disease with heart failure; I50.9 Heart failure, unspecified; I25.10 Atherosclerotic heart disease of native coronary artery without angina pectoris; F03.90 Unspecified dementia, unspecified severity, without behavioral disturbance, psychotic disturbance, mood disturbance, and anxiety; K21.9 Gastro-esophageal reflux disease without esophagitis; F32.9 Major depressive disorder, single episode, unspecified; F41.9 Anxiety disorder, unspecified; E03.9 Hypothyroidism, unspecified; E78.5 Hyperlipidemia, unspecified; J44.9 Chronic obstructive pulmonary disease, unspecified; K59.00 Constipation, unspecified; K64.8 Other hemorrhoids; R29.6 Repeated falls; Z91.81 History of falling; Z95.5 Presence of coronary angioplasty implant and graft; Z86.73 Personal history of transient ischemic attack (TIA), and cerebral infarction without residual deficits; Z79.02 Long term (current) use of antithrombotics/antiplatelets; Z86.718 Personal history of other venous thrombosis and embolism; Z98.84 Bariatric surgery status; Z87.891 Personal history of nicotine dependence; Z91.018 Allergy to other foods

== ENCOUNTER 2018-11-23 17:22 | Inpatient (IN) | payer MEDICARE, MEDICAID ==
[2018-11-23 17:30] VITALS: BMI 26.6
--- NOTE | 2018-11-23 17:55 | ED PDOC ---
Arrival/HPI - General Chief Complaint: Syncope Time Seen by Provider: 11/23/18 17:30 - History of Present Illness Narrative History of Present Illness (Text): 11/23/18 17:53 Patient is a 68 y/o F with dementia, presenting after fall vs syncope. 12 year old granddaughter reports that she got home and found her on the ground. EMS arrived and reported that patient had syncope x 2 in front of them. Patient is complaining of chest pain. She is a poor historian and further history difficult to obtain. 11/23/18 19:20 Past Medical History - Past History Past History: No Previous - Infectious Disease Hx of Infectious Diseases: None - Tetanus Immunization Tetanus Immunization: Unknown - Past Medical History Past Medical History: No Previous - Cardiac Hx Cardiac Disorders: Yes (CAD s/p PCI, tents) Hx Congestive Heart Failure: Yes Hx Hypertension: Yes - Pulmonary Hx Chronic Obstructive Pulmonary Disease (COPD): Yes - Neurological HX Cerebrovascular Accident: Yes (TIA) - HEENT Hx HEENT Disorder: Yes Other/Comment: glasses - Renal Hx Renal Disorder: No - Endocrine/Metabolic Hx Diabetes Mellitus Type 2: Yes - Hematological/Oncological Hx Blood Disorders: Yes Hx Anemia: Yes - Integumentary Hx Dermatological Disorder: No - Musculoskeletal/Rheumatological Hx Arthritis: Yes - Gastrointestinal Other/Comment: watery stools improving sometimes bloody, weight loss, Pt stated "I tried a gluten free diet because of diarrhea, it helped a little, but I didn't like it.",sigmoidoscopy w/bx 08/24/17 dx colitis - Genitourinary/Gynecological Hx Genitourinary Disorders: Yes Hx Urinary Tract Infection: Yes - Psychiatric Hx Psychophysiologic Disorder: Yes Hx Anxiety: Yes Hx Depression: Yes Hx Hallucinations: Yes Hx Substance Use: No - Past Surgical History Past Surgical History: No Previous - Surgical History Hx Cardiac Catheterization: Yes Hx Coronary Stent: Yes - Anesthesia Hx Anesthesia: Yes Hx Anesthesia Reactions: No Hx Malignant Hyperthermia: No - Suicidal Assessment Feels Threatened In Home Enviroment: No Family/Social History Family/Social History: No Known Family HX Smoking Status: Former Smoker Hx Alcohol Use: No Hx Substance Use: No Hx Substance Use Treatment: No Allergies/Home Meds Allergies/Adverse Reactions: Allergies gluten Allergy (Verified 11/23/18 17:30) DIARRHEA Review of Systems - Review of Systems Systems not reviewed;Unavailable: Dementia Cardiovascular: Chest Pain Physical Exam Vital Signs Temp Pulse Resp BP Pulse Ox 11/23/18 17:30 97.4 F L 83 19 142/71 100 Temperature: Afebrile Blood Pressure: Normal Pulse: Regular Respiratory Rate: Normal Appearance: Positive for: Unkept, Other (bizaree affect and agitated) Mental Status: Positive for: Alert and Oriented X 3 Finger Stick Blood Glucose: 116 - Systems Exam Head: Present: Atraumatic, Normocephalic Pupils: Present: PERRL Extroacular Muscles: Present: EOMI Conjunctiva: Present: Normal Neck: Present: Normal Range of Motion Respiratory/Chest: Present: Clear to Auscultation, Good Air Exchange. No: Respiratory Distress, Accessory Muscle Use Cardiovascular: Present: Regular Rate and Rhythm, Normal S1, S2. No: Murmurs Abdomen: No: Tenderness, Distention, Rebound, Guarding Upper Extremity: Present: Normal Inspection, Normal ROM (x4). No: Edema Lower Extremity: Present: Normal Inspection. No: Edema, CALF TENDERNESS Neurological: Present: GCS=15, CN II-XII Intact, Motor Func Grossly Intact, Normal Sensory Function Psychiatric: Present: Alert, Agitated Medical Decision Making ED Course and Treatment: 11/23/18 17:55 EKG shows NSR at 90bpm with normal intervals and no acute st changes 11/23/18 18:[address] head negative. Daughter now at bedside and reports that patient has no hx of syncope. 11/23/18 19:20 UA shows trace leukocytes 11/23/18 20:[address] Christensen as pending labs and observation under Dr. Olvera (PMD Dr. Barreto but previously admitted to Dr. Olvera) for syncope. - RAD Interpretation Radiology Orders: 11/23/18 17:39 HEAD W/O CONTRAST [CT] Stat CHEST PORTABLE [RAD] Stat Disposition/Present on Arrival - Present on Arrival Any Indicators Present on Arrival: No History of DVT/PE: No History of Uncontrolled Diabetes: No Urinary Catheter: No History of Decub. Ulcer: No History Surgical Site Infection Following: None - Disposition Have Diagnosis and Disposition been Completed?: Yes Diagnosis: Syncope Disposition: HOSPITALIZED Disposition Time: 19:22 Patient Plan: Observation Patient Problems: Current Active Problems Problem Status Onset Syncope Acute Condition: FAIR Discharge Instructions (ExitCare): Syncope (ED) Forms: [employer] [facility] (Malay)
--- NOTE | 2018-11-23 18:15 | RAD ---
Date of service: 11/23/2018 HISTORY: syncope COMPARISON: 10/21/2018. FINDINGS: LUNGS: No active pulmonary disease. PLEURA: No significant pleural effusion identified, no pneumothorax apparent. CARDIOVASCULAR: No atherosclerotic calcification present Normal. OSSEOUS STRUCTURES: No significant abnormalities. VISUALIZED UPPER ABDOMEN: Normal. OTHER FINDINGS: None. IMPRESSION: No active disease. No significant interval change compared to the prior examination(s).
[2018-11-23 19:01] LABS: BASO # 0.02 K/mm3 (0.0-2.0); BASO % 0.4 % (0.0-3.0); EOS % 0.4 % (1.5-5.0); LYMPH # 1.9 (1.2-3.4); MEAN CELL VOLUME 100.3 fl (80.0-105.0); MEAN CORPUSCULAR HEMOGLOBIN 33.5 pg (25.0-35.0); MEAN CORPUSCULAR HGB CONC 33.4 g/dl (31.0-37.0); MEAN PLATELET VOLUME 9.4 fl (7.0-11.0); MONO # 0.3 (0.1-0.6); MONO % 5.4 % (1.0-6.0); RBC 3.88 10^6/uL (3.5-6.1); RED CELL DISTRIBUTION WIDTH 14.5 % (11.5-14.5); WHITE BLOOD COUNT 4.8 10^3/uL (4.5-11.0)
--- NOTE | 2018-11-23 19:03 | CT ---
Date of service: 11/23/2018 PROCEDURE: CT HEAD WITHOUT CONTRAST. HISTORY: altered, syncope COMPARISON: Noncontrast head CT performed 10/21/18 TECHNIQUE: Axial computed tomography images were obtained through the head/brain without intravenous contrast. Radiation dose: Total exam DLP = 957.93 mGy-cm. This CT exam was performed using one or more of the following dose reduction techniques: Automated exposure control, adjustment of the mA and/or kV according to patient size, and/or use of iterative reconstruction technique. FINDINGS: Streak artifact limits evaluation of the skull base. HEMORRHAGE: No intracranial hemorrhage. BRAIN: Diffuse atrophy with prominence of the ventricles and sulci noted. No mass effect or edema. Mild scattered white matter hypodensities, which are nonspecific, but often seen with chronic microvascular ischemic disease. Please note that MRI with diffusion imaging is more sensitive in the detection of acute ischemic event. VENTRICLES: No hydrocephalus. CALVARIUM: Unremarkable. PARANASAL SINUSES: Unremarkable as visualized. No significant inflammatory changes. MASTOID AIR CELLS: Unremarkable as visualized. No inflammatory changes. OTHER FINDINGS: None. IMPRESSION: Streak artifact limits evaluation of the skull base. Generalized atrophy. Mild nonspecific white matter changes.
[2018-11-23 19:09] LABS: INR 1.11; PARTIAL THROMBOPLASTIN TIME 27.7 Seconds (26.9-38.3); PROTHROMBIN TIME 12.3 SECONDS (9.4-12.5)
[2018-11-23 19:11] LABS: PH,URINE 6.5 (4.7-8.0); URINE BILIRUBIN NEGATIVE (NEGATIVE); URINE BLOOD NEGATIVE (NEGATIVE); URINE GLUCOSE (UA) NEGATIVE (NEGATIVE); URINE LEUKOCYTE ESTERASE TRACE Leu/uL (NEGATIVE); URINE PROTEIN NEGATIVE mg/dL (<30 mg/dL); URINE UROBILINOGEN 0.2 E.U./dL (<1 E.U./dL)
[2018-11-23 19:25] LABS: URINE APPEARANCE CLEAR (CLEAR); URINE COLOR STRAW (YELLOW)
--- NOTE | 2018-11-23 19:27 | CARD ---
APPROVED REPORT Date of service: 11/23/2018 EKG Measurement Heart [id number] <Conclusion> Normal sinus rhythm Normal ECG
[2018-11-23 20:13] LABS: URINE BACTERIA FEW /hpf; URINE EPITHELIAL CELLS 0 - 2 /hpf (0-5); URINE RBC 0 - 2 /hpf (0-2); URINE WBC 0 - 2 /hpf (0-6)
--- NOTE | 2018-11-23 20:28 | ED PDOC ---
Physical Exam Vital Signs Temp Pulse Resp BP Pulse Ox 11/23/18 17:30 97.4 F L 83 19 142/71 100 Finger Stick Blood Glucose: 116 Medical Decision Making ED Course and Treatment: 11/23/18 20:00 Case endorsed to me by Dr. Holland. Patient is a patient of Dr. Olvera. Dr. Holland discussed case with Dr. Olvera earlier, who stated if lab results return normal, patient is to be admitted to obs/tele. Pending lab results. - Lab Interpretations Lab Results: PT 12.3 SECONDS (9.4-12.5) 11/23/18 18:13 INR 1.11 11/23/18 18:13 APTT 27.7 Seconds (26.9-38.3) 11/23/18 18:13 Urine Color Straw (YELLOW) 11/23/18 19:04 Urine Appearance Clear (CLEAR) 11/23/18 19:04 Urine pH 6.5 (4.7-8.0) 11/23/18 19:04 Ur Specific Maxwell <= 1.005 (1.005-1.035) 11/23/18 19:04 Urine Protein Negative mg/dL (<30 mg/dL) 11/23/18 19:04 Urine Glucose (UA) Negative mg/dL (NEGATIVE) 11/23/18 19:04 Urine Ketones Negative mg/dL (NEGATIVE) 11/23/18 19:04 Urine Blood Negative (NEGATIVE) 11/23/18 19:04 Urine Nitrate Negative (NEGATIVE) 11/23/18 19:04 Urine Bilirubin Negative (NEGATIVE) 11/23/18 19:04 Urine Urobilinogen 0.2 E.U./dL (<1 E.U./dL) 11/23/18 19:04 Ur Leukocyte Esterase Trace Elizabeth/uL (NEGATIVE) H 11/23/18 19:04 Urine RBC 0 - 2 /hpf (0-2) 11/23/18 19:04 Urine WBC 0 - 2 /hpf (0-6) 11/23/18 19:04 Ur Epithelial Cells 0 - 2 /hpf (0-5) 11/23/18 19:04 Urine Bacteria Few /hpf (NONE) 11/23/18 19:04 - RAD Interpretation Radiology Orders: 11/23/18 17:39 HEAD W/O CONTRAST [CT] Stat CHEST PORTABLE [RAD] Stat - Scribe Statement The provider has reviewed the documentation as recorded by the Scribe Morenita Alexander All medical record entries made by the Scribe were at my direction and personally dictated by me. I have reviewed the chart and agree that the record accurately reflects my personal performance of the history, physical exam, medical decision making, and the department course for this patient. I have also personally directed, reviewed, and agree with the discharge instructions and disposition. Disposition/Present on Arrival - Present on Arrival Any Indicators Present on Arrival: No History of DVT/PE: No History of Uncontrolled Diabetes: No Urinary Catheter: No History of Decub. Ulcer: No History Surgical Site Infection Following: None - Disposition Have Diagnosis and Disposition been Completed?: Yes Diagnosis: Syncope Disposition: HOSPITALIZED Disposition Time: 20:00 Patient Plan: Observation Patient Problems: Current Active Problems Problem Status Onset Syncope Acute Condition: GUARDED Discharge Instructions (ExitCare): Syncope (ED) Forms: [employer] (American)
[2018-11-23 20:43] LABS: ALB/GLOB RATIO 1.2 (1.1-1.8); ALBUMIN 4.1 g/dL (3.0-4.8); ALT/SGPT 17 U/L (7-56); AST/SGOT 25 U/L (14-36); BLOOD UREA NITROGEN 12 mg/dL (7-21); CALCIUM 8.6 mg/dL (8.4-10.5); GFR NON-AFRICAN AMERICAN > 60
[2018-11-23 20:47] LABS: B-TYPE NATRIURETIC PEPTIDE 64.7 pg/mL (0-450)
[2018-11-23 20:53] LABS: TROPONIN I < 0.01 ng/mL
[2018-11-24] MEDS: Iron Complex Polysacch 150mg Cap PO SCH (09:32)
[2018-11-24 10:54] LABS: BENZODIAZEPINES, UR NEGATIVE (NEGATIVE); OPIATES, UR NEGATIVE (NEGATIVE); PHENCYCLIDINE, UR NEGATIVE (NEGATIVE)
[2018-11-24 11:04] LABS: BARBITURATES, UR NEGATIVE (NEGATIVE)
[2018-11-24] MEDS: Digoxin 125 mcg (0.125 mg) Tab PO SCH (13:25)
--- NOTE | 2018-11-25 01:01 | CON ---
DATE: 11/24/2018 HISTORY OF PRESENT ILLNESS: Patient is a 68-year-old female with a history of dementia with associated psychiatric behavior and symptoms, who has been admitted to the Psychiatric Unit in the past in 12/2017 for acute psychotic symptoms and agitation. The provider was Dr. Wilkinson, has consulted with the patient during her medical hospitalizations including consultation by Dr. Wilkinson on 10/22/2018 and another consultation requested by this provider on 10/27/2018, which both of us had signed off. The patient has a history of delusions, disorientation, wandering behaviors, paranoia, mostly increased severity in the evenings. Psychiatrist requested to follow up for agitation; however, this has not been noted on the unit thus far. I met with the patient at bedside and she recognizes me from our prior encounters again since she is aware that she is at [facility] and that she fell. She does not know how she fell. She also seems to recall that she fell during her prior hospitalization as well. She is not a great historian due to dementia. However, she is consistent, like that she knew that the current month is November. She also is aware that it was 2018. Patient reports that her mood has been up and down. She reports chronic stresses of finances and housing, conflict with her daughter who accessed her POA and granddaughter. The patient indicated that she is thinking about changing her mid that her daughter being her POA because she does not want to stress her daughter out and also the fact she does not like her daughter having control over her finances in this respect. The patient denies, you know, suicidal thoughts and wishes. She is stressed about her chronic hospitalizations, however, this appears to be related obviously. She does have a history of hallucinations, she states she sees people that cannot be there and they passed on. It is chronic and intermittent. During the patient's prior decompensation, which required psychiatric hospitalization, she was notably acutely angry, confused, paranoid, going to the people's room, accusing people stealing her things, and behavior was very unpredictable throughout the day and night. Labs and vitals were reviewed. Relevant psychiatric medications include Wellbutrin 75 mg daily and Ativan 1 mg b.i.d. IMPRESSION AND PLAN: The patient with dementia which was diagnosed 2 years ago. She has been sundowning consistent with prior presentation and does appear to demonstrate intermittent bouts of and delusions and sundowning. This is consistent with her baseline. I would recommend as I did during the prior hospitalization Seroquel 12.5 mg in the evening and 12.5 mg at night to help with sundowning. At this time, she does not meet criteria for psychiatric admission, so I do recommend family meeting with patient as well as patient's daughter, everybody should be involved to discuss again, but the safest disposition is possible for the patient once she is ultimately medically cleared. Woody Siu MD
[2018-11-25 07:45] LABS: BLOOD UREA NITROGEN 12 mg/dL (7-21); CALCIUM 8.8 mg/dL (8.4-10.5); GFR NON-AFRICAN AMERICAN 55; HDL CHOLESTEROL 86 mg/dL (29-60); LIPASE 117 U/L (23-300)
[2018-11-25 07:51] LABS: HEMOGLOBIN 11.9 g/dL (12.0-16.0); MEAN CELL VOLUME 99.2 fl (80.0-105.0); MEAN CORPUSCULAR HEMOGLOBIN 32.7 pg (25.0-35.0); MEAN PLATELET VOLUME 9.1 fl (7.0-11.0); RBC 3.64 10^6/uL (3.5-6.1); RED CELL DISTRIBUTION WIDTH 14.6 % (11.5-14.5); WHITE BLOOD COUNT 4.4 10^3/uL (4.5-11.0)
[2018-11-25 07:52] LABS: IRON 123 ug/dL (45-180)
[2018-11-25 07:56] LABS: LDL CHOLESTEROL 55 mg/dL (0-129)
[2018-11-25 08:01] LABS: % IRON SATURATION 46 % (20-55); TOTAL IRON BINDING CAPACITY 265 ug/dL (265-497)
[2018-11-25] MEDS: Iron Complex Polysacch 150mg Cap PO SCH (09:36)
--- NOTE | 2018-11-25 09:55 | CP.PCM.CON ---
History of Present Illness - History of Present Illness History of Present Illness: Neurology Consultation Note: Consult requested by Dr. Olvera Mrs. Cast is a 68-year-old woman with a past medical history of dementia, depression, CHF, who had several syncopal events at home prior to and after EMS was called. She was brought to the ED. Non-contrast CT scan of the head was unremarkable. The patient denies urinary/bowel incontinence, tongue biting or abnormal shaking movements. However, she is also a poor historian and does not fully recall. Review of Systems - Constitutional Constitutional: As Per HPI - EENT Eyes: absent: As Per HPI, Blind Spots, Blurred Vision, Change in Vision, Decreased Night Vision, Diplopia, Discharge, Dry Eye, Exophthalmos, Floaters, Irritation, Itchy Eyes, Loss of Peripheral Vision, Pain, Photophobia, Requires Corrective Lenses, Sees Flashes, Spots in Vision, Tunnel Vision, Other Visual Disturbances, Loss of Vision, Other Ears: absent: As Per HPI, Decreased Hearing, Ear Discharge, Ear Pain, Tinnitus, Abnormal Hearing, Disequilibrium, Dizziness, Other Nose/Mouth/Throat: absent: As Per HPI, Epistaxis, Nasal Congestion, Nasal Discharge, Nasal Obstruction, Nasal Trauma, Nose Pain, Post Nasal Drip, Sinus Pain, Sinus Pressure, Bleeding Gums, Change in Voice, Dental Pain, Dry Mouth, Dysphagia, Halitosis, Hoarsness, Lip Swelling, Mouth Lesions, Mouth Pain, Odynophagia, Sore Throat, Throat Swelling, Tongue Swelling, Facial Pain, Neck Pain, Neck Mass, Other - Cardiovascular Cardiovascular: As Per HPI - Respiratory Respiratory: absent: As Per HPI, Cough, Dyspnea, Hemoptysis, Dyspnea on Exertion, Wheezing, Snoring, Stridor, Pain on Inspiration, Chest Congestion, Excessive Mucous Production, Change in Mucous Color, Pain with Coughing, Other - Musculoskeletal Musculoskeletal: absent: As Per HPI, Abnormal Gait, Arthralgias, Atrophy, Back Pain, Deformity, Joint Swelling, Limited Range of Motion, Loss of Height, Muscle Cramps, Muscle Weakness, Myalgias, Neck Pain, Numbness, Radiating Pain into Li mb, Stiffness, Tingling, Other - Neurological Neurological: As Per HPI - Endocrine Endocrine: absent: As Per HPI, Change in Body Appearance, Change in Libido, Cold Intolorance, Deepening of Voice, Excessive Sweating, Fatigue, Flushing, Heat Intolorance, Increase in Ring/Shoe/Hat Size, Palpitations, Polydipsia, Polyphagia, Polyuria, Other - Hematologic/Lymphatic Hematologic: absent: As Per HPI, Easy Bleeding, Easy Bruising, Lymphadenopathy, Other Past Patient History - Infectious Disease Hx of Infectious Diseases: None - Tetanus Immunizations Tetanus Immunization: Unknown - Past Medical History & Family History Past Medical History?: Yes - Past Social History Smoking Status: Former Smoker - CARDIAC Hx Cardiac Disorders: Yes (CAD s/p PCI, tents) Hx Congestive Heart Failure: Yes Hx Hypercholesterolemia: Yes Hx Hypertension: Yes - PULMONARY Hx Respiratory Disorders: Yes Hx Asthma: Yes Hx Bronchitis: Yes Hx Chronic Obstructive Pulmonary Disease (COPD): Yes Hx Pneumonia: Yes - NEUROLOGICAL Hx Neurological Disorder: Yes HX Cerebrovascular Accident: Yes (TIA) Hx Dementia: Yes Hx Transient Ischemic Attacks (TIA): Yes - HEENT Hx HEENT Problems: Yes Other/Comment: glasses - RENAL Hx Chronic Kidney Disease: No - ENDOCRINE/METABOLIC Hx Diabetes Mellitus Type 2: Yes - HEMATOLOGICAL/ONCOLOGICAL Hx Blood Disorders: Yes Hx Anemia: Yes - INTEGUMENTARY Hx Dermatological Problems: No - MUSCULOSKELETAL/RHEUMATOLOGICAL Hx Musculoskeletal Disorders: Yes Hx Arthritis: Yes Hx Falls: Yes Hx Unsteady Gait: Yes - GASTROINTESTINAL Other/Comment: watery stools improving sometimes bloody, weight loss, Pt stated "I tried a gluten free diet because of diarrhea, it helped a little, but I didn't like it.",sigmoidoscopy w/bx 08/24/17 dx colitis - GENITOURINARY/GYNECOLOGICAL Hx Genitourinary Disorders: Yes Hx Urinary Tract Infection: Yes - PSYCHIATRIC Hx Psychophysiologic Disorder: Yes Hx Anxiety: Yes Hx Depression: Yes Hx Hallucinations: Yes - SURGICAL HISTORY Hx Surgeries: No Hx Amputation: No Hx Appendectomy: No Hx Cardiac Catheterization: Yes Hx Cholecystectomy: No Hx Coronary Stent: Yes Hx Gastric Bypass Surgery: No Hx Hysterectomy: No Hx Joint Replacement: No Hx Kidney Transplant: No Hx Liver Transplant: No Hx Mastectomy: No Hx Musculoskeletal Surgery: No Hx Open Heart Surgery: No Hx Orthopedic Surgery: No Hx Splenectomy: No Hx Valve Replacement: No - ANESTHESIA Hx Anesthesia: Yes Hx Anesthesia Reactions: No Hx Malignant Hyperthermia: No Meds Allergies/Adverse Reactions: Allergies Allergy/AdvReac Type Severity Reaction Status Date / Time gluten Allergy DIARRHEA Verified 11/23/18 17:30 - Medications Medications: Current Medications Bupropion HCl (Wellbutrin) 75 mg PO DAILY [facility] Last Admin: 11/25/18 09:37 Dose: 75 mg Clopidogrel Bisulfate (Plavix) 75 mg PO DAILY [facility] Last Admin: 11/25/18 09:38 Dose: 75 mg Digoxin (Digoxin) 0.125 mg PO 1400 [facility] Last Admin: 11/24/18 13:25 Dose: 0.125 mg Lorazepam (Ativan) 1 mg PO BID [facility]; Protocol Last Admin: 11/25/18 09:36 Dose: 1 mg Memantine (Namenda) 10 mg PO BID [facility] Last Admin: 11/25/18 09:37 Dose: 10 mg Polysaccharide Iron Complex (Ferrex-150) 150 mg PO DAILY [facility] Last Admin: 11/25/18 09:36 Dose: 150 mg Propranolol HCl (Inderal) 40 mg PO DAILY [facility] Last Admin: 11/25/18 09:37 Dose: 40 mg Quetiapine Fumarate (Seroquel) 12.5 mg PO 1700 [facility]; Protocol Last Admin: 11/24/18 17:04 Dose: 12.5 mg Quetiapine Fumarate (Seroquel) 25 mg PO HS [facility]; Protocol Last Admin: 11/25/18 03:45 Dose: Not Given Thiamine HCl (Vitamin B1 Tab) 100 mg PO DAILY [facility] Last Admin: 11/25/18 09:37 Dose: 100 mg Physical Exam - Constitutional Appears: Well - Head Exam Head Exam: ATRAUMATIC, NORMAL INSPECTION, NORMOCEPHALIC - Eye Exam Eye Exam: EOMI, Normal appearance, PERRL Pupil Exam: NORMAL ACCOMODATION, PERRL - ENT Exam ENT Exam: Mucous Membranes Moist, Normal Exam - Neck Exam Neck exam: Positive for: Normal Inspection - Respiratory Exam Respiratory Exam: Clear to Auscultation Bilateral, NORMAL BREATHING PATTERN - Cardiovascular Exam Cardiovascular Exam: REGULAR RHYTHM, +S1, +S2 - GI/Abdominal Exam GI & Abdominal Exam: Normal Bowel Sounds, Soft. absent: Tenderness - Extremities Exam Extremities exam: Positive for: normal inspection - Back Exam Back exam: NORMAL INSPECTION - Neurological Exam Neurological exam: Alert, CN II-XII Intact, Normal Gait, Oriented x3, Reflexes Normal - Psychiatric Exam Psychiatric exam: Normal Affect, Normal Mood - Skin Skin Exam: Dry, Intact, Normal Color, Warm Results - Vital Signs Recent Vital Signs: Last Vital Signs Temp 97.7 F 11/24/18 12:00 Pulse 69 11/25/18 09:37 Resp 18 11/24/18 12:00 BP 129/75 11/25/18 09:37 Pulse Ox 97 11/24/18 09:00 - Labs Result Diagrams: 11/25/18 07:00 11/25/18 07:00 Labs: Laboratory Results - last 24 hr 11/24/18 11/24/18 11/24/18 10:00 11:37 16:11 WBC RBC Hgb Hct MCV MCH MCHC RDW Plt Count MPV Sodium Potassium Chloride Carbon Dioxide Anion Gap BUN Creatinine Est GFR ( Amer) Est GFR (Non-Af Amer) POC Glucose (mg/dL) 81 262 H Random Glucose Calcium Iron TIBC % Saturation Triglycerides Cholesterol LDL Cholesterol Direct HDL Cholesterol Lipase TSH 3rd Generation Urine Opiates Screen Negative Urine Methadone Screen Negative Ur Barbiturates Screen Negative Ur Phencyclidine Scrn Negative Ur Amphetamines Screen Negative U Benzodiazepines Scrn Negative U Oth Cocaine Metabols Negative U Cannabinoids Screen Negative 11/24/18 11/25/18 11/25/18 21:24 06:24 07:00 WBC RBC Hgb Hct MCV MCH MCHC RDW Plt Count MPV Sodium 143 Potassium 3.6 Chloride 108 H Carbon Dioxide 28 Anion Gap 11 BUN 12 Creatinine 1.0 Est GFR ( Amer) > 60 Est GFR (Non-Af Amer) 55 POC Glucose (mg/dL) 104 92 Random Glucose 91 Calcium 8.8 Iron TIBC % Saturation Triglycerides 103 Cholesterol 152 LDL Cholesterol Direct 55 HDL Cholesterol 86 H Lipase 117 TSH 3rd Generation Urine Opiates Screen Urine Methadone Screen Ur Barbiturates Screen Ur Phencyclidine Scrn Ur Amphetamines Screen U Benzodiazepines Scrn U Oth Cocaine Metabols U Cannabinoids Screen 11/25/18 11/25/18 11/25/18 07:00 07:00 07:00 WBC 4.4 L RBC 3.64 Hgb 11.9 L Hct 36.1 MCV 99.2 MCH 32.7 MCHC 33.0 RDW 14.6 H Plt Count 149 MPV 9.1 Sodium Potassium Chloride Carbon Dioxide Anion Gap BUN Creatinine Est GFR ( Amer) Est GFR (Non-Af Amer) POC Glucose (mg/dL) Random Glucose Calcium Iron 123 TIBC 265 % Saturation 46 Triglycerides Cholesterol LDL Cholesterol Direct HDL Cholesterol Lipase TSH 3rd Generation 2.35 Urine Opiates Screen Urine Methadone Screen Ur Barbiturates Screen Ur Phencyclidine Scrn Ur Amphetamines Screen U Benzodiazepines Scrn U Oth Cocaine Metabols U Cannabinoids Screen Assessment & Plan (1) Syncope Assessment and Plan: Likely neuro-cardiogenic. CT head does not show any significant findings. Exam is non-focal. EEG can be done for further evaluation of possible seizure. Cardiac work-up is recommended considering her history. Thank you for this consultation. Status: Acute
[2018-11-25 12:26] LABS: FOLATE 8.8 ng/mL
[2018-11-25] MEDS: Digoxin 125 mcg (0.125 mg) Tab PO SCH (13:50)
--- NOTE | 2018-11-26 07:18 | PN ---
DATE: 11/25/2018 SUBJECTIVE: The patient was seen and examined at the bedside on 11/25/2018. The patient was sitting in the chair, awake, alert, but confused, wants to go home, wants me to discharge her. She wants to go home , waiting for her daughter. No fever, no chills. No hematuria, no hematochezia. No headache, no dizziness. No chest pain, no palpitation. PHYSICAL EXAMINATION: VITAL SIGNS: Temperature 97.7, pulse 69, respiratory rate 18, blood pressure 129/75, pulse oximetry 97%. HEENT: Head: Normocephalic, atraumatic. Eyes: PERRLA. Extraocular muscles intact. Conjunctivae clear. Nose patent. NECK: Supple. No carotid bruits. No JVD or thyromegaly. CHEST: Bilaterally symmetrical. HEART: S1 and S2 positive. LUNGS: Clear to auscultation. ABDOMEN: Soft. Bowel sounds present. No organomegaly. EXTREMITIES: No edema, no cyanosis. NEUROLOGIC: The patient is awake, alert. Follows simple commands. LABORATORY DATA: White blood cells 4.4, hemoglobin 11.9, hematocrit 36.1, platelets 149. Sodium 143, potassium 3.6, BUN 12, creatinine 1, glucose 91. ASSESSMENT AND PLAN: Ms. Willow Cast is a 68-year-old lady with leukopenia, anemia, hyperchloremia, came with syncopal attack x2 as per patient. CT of head does not show any significant findings. Exam is nonfocal. Electroencephalogram can be done for further evaluation of possible seizure. Cardiac workup is recommended, considering her history. Actually, the patient had couple of times cardiac workup but still, we will put cardiology consult and electroencephalogram ordered by Dr. Simpson. The patient is seen by Dr. Woody Siu, psychiatrist. The patient has dementia, which was diagnosed two years ago. She has been with prior presentation and it does appear to demonstrate intermittent bouts of anxiety, confusion, and delusions. According to psychiatrist, this is the baseline and psychiatrist is considering Seroquel. According to that, the patient would meet criteria for psychiatry admission. The patient has history of gastric bypass, history of coronary artery disease status post percutaneous coronary intervention, congestive heart failure, hypertension, chronic obstructive pulmonary disease, transient ischemic attack, diabetes mellitus type 2. We will call cardiology consult, repeat labs, out of bed, and physical therapy. We will follow up. Fariha Olvera MD MTDHaris
--- NOTE | 2018-11-26 07:22 | HP ---
DATE OF EXAM: 11/24/2018 CHIEF COMPLAINT: Syncopal attack. HISTORY OF PRESENT ILLNESS: The patient is a 68-year-old lady, well known to me from different hospitalizations, has history of dementia, schizophrenia, history of gastric bypass, came after fall versus syncopal attack. As per the patient, she had 2 times syncopal attack. A 12-year-old granddaughter reported that she got home and found her grandmother on the ground, EMS arrived and reported that the patient had syncope x2 in front of them. The patient is complaining of chest pain as per ER. She is very poor historian. When I talk to her early in the morning today, no fever, no chills. No hematuria. No hematochezia. No headache or dizziness. No chest pain, no palpitation. PAST MEDICAL HISTORY: Coronary artery disease, congestive heart failure, hypertension, COPD, TIA, diabetes mellitus type 2, anemia, arthritis, UTI, history of anxiety, depression and hallucinations. FAMILY HISTORY: Father and mother noncontributory. HABITS: No smoking, no drug, no ethanol. Former smoker. ALLERGIES: GLUTEN ALLERGY, HAVING DIARRHEA. HOME MEDICATIONS: Reviewed by me. REVIEW OF SYSTEMS: The patient was seen and examined at bedside. Looking comfortable. No fever. No chills. No hematuria. No hematochezia. No headache. No dizziness. No chest pain. No palpitation. PHYSICAL EXAMINATION: VITAL SIGNS: Temperature 97.7, pulse 54, blood pressure 144/81 and respiratory rate 18. HEENT: Head normocephalic, atraumatic. Eyes, PERRLA. Extraocular muscles intact. Conjunctivae clear. Nose patent. Mucous membrane moist. NECK: Supple. No carotid bruits. No JVD or thyromegaly. CHEST: Bilaterally symmetrical. HEART: S1 and S2 positive. LUNGS: Clear to auscultation. ABDOMEN: Soft. Bowel sounds present. No organomegaly. EXTREMITIES: No edema. No cyanosis. NEUROLOGIC: The patient is awake and alert. Moving all four extremities. No focal deficit, but sometimes getting confused. LABORATORY DATA: White blood cells 4.8, hemoglobin 13.0, hematocrit 38.9 and platelets 140. Sodium 147, potassium 3.9, BUN 12, creatinine 0.9, glucose 82 and 61. ASSESSMENT AND PLAN: The patient is a 68-year-old lady with hyperchloremia, hypoglycemia, urinary tract infection. Alcohol level 192, it means she is drinking alcohol. Dig level is less than 0.4, it means she is not taking dig. Noncompliant with medications. CAT scan of the head done. limits the evaluation of the skull base, generalized atrophy, mild nonspecific white matter changes. Chest x-rays; no active disease, no significant interval changes compared to the prior examinations. History of gastric bypass long time ago. She has schizophrenia, bipolar , multiple admissions, dementia, living with the daughter. We admitted, called Neurology consult. Gastrointestinal and deep venous thrombosis prophylaxis. Restarted home medications. Urged to be compliant with digoxin. We will follow up. Fariha Olvera MD MTD[facility]
[2018-11-26] MEDS: Iron Complex Polysacch 150mg Cap PO SCH (09:01)
[2018-11-26] MEDS: Digoxin 125 mcg (0.125 mg) Tab PO SCH (14:16)
--- NOTE | 2018-11-26 16:10 | PCM.EEG ---
Electroencephalogram Report - Electroencephalogram Report Procedure Date: 11/25/18 Medication: memantine, Bupropion, Seroquel. Interpretation: Technical Information: This was a 16 -channel EEG, 1-channel EKG routine EEG performed using an [employer] machine. Electrodes were applied using the 10/20 international placement system. Start; 14;41 End; 15;27 Total; 47 min. Clinical Information:seizures vs syncope During active states, the EEG was characterized by 10-20 Hz, 15-30 uV activity bilaterally in fronto-central regions, with slightly slower frequencies and higher amplitudes emerging on the right. Resting wakefulness was characterized by a symmetric posterior dominant rhythm of 8-9 Hz, 30-50 uV, which was reactive to eye opening and closing. Drowsiness (14;50) was associated with slow roving eye movements, slowing and fragmentation of the posterior dominant rhythm, and bilateral 4-7 Hz, 40-70 uV theta activity, sometimes with a shifting predominance. Hyperventilation was not performed. Photic stimulation was performed and there were no changes in the record. Throughout the recording, there was evidence of continuous left temporal 3-6 Hz, 30-75 uV slowing at time rhythmic. Impression: This is an abnormal EEG study that demonstrate the presence of a focal cortical abnormality involving the left temporal area, in keeping with a structural abnormality in the same area.
--- NOTE | 2018-11-26 20:12 | PN ---
DATE: 11/26/2018 SUBJECTIVE: The patient is a 68-year-old female with reported history of dementia, history of syncopal episode. The patient was admitted on the medical side status post fall. Psych consult was called for evaluation of psychotic symptoms which the patient has chronic and it is related to her dementia. The patient was seen by Dr. Siu, reports reviewed and agree with Dr. Siu's assessment that at present moment, the patient does not meet the criteria for psychiatric admission and all of the symptoms which the patient experienced is very chronic and related to dementia. The patient was seen and examined. This screen writer is very familiar with this patient from the previous admission to the psychiatric inpatient unit and consultation services. The patient presented to be alert. The patient does not remember this screen writer. The patient does not know where she is. The patient does not know what is the date today. The patient reported that right now it is, January 25, 2019. The patient is not aware of the circumstances of her admission. The patient obviously presented to be demented. PHYSICAL EXAMINATION VITAL SIGNS: Reviewed. Temperature 98.1, pulse 76, blood pressure 125/79, respirations 26 and oxygen saturation is 97%. MEDICATIONS: Reviewed. The patient is on Wellbutrin, Plavix, digoxin, Ativan 1 mg twice a day scheduled, Namenda Ferrex, Inderal, Seroquel 12.5 mg at 5:00 p.m. and 25 mg at the nighttime. The patient is on vitamin B1. The patient will be on Geodon 10 mg IM only if needed for acute agitation. LABORATORY DATA: Labs reviewed. Toxicology reviewed. Alcohol level was 192 at the time of admission. The patient has power of tax attorney, daughter and director of ancillary services need to ask the patient's daughter if the patient is drinking or not. MENTAL STATUS EXAMINATION: As this screen writer described above, the patient is confused, confabulates, intermittent eye contact. Mood described as okay. Affect was constricted but reactive. Thought process seems to be circumstantial, tangential and the patient has tendency to confabulate. The patient also has visual hallucinations and transient paranoia. Insight and judgment seems to be impaired. Impulses are unpredictable. IMPRESSION: The patient has dementia, delirium cannot be excluded. Alcohol level was elevated at the time of admission. PLAN: Will continue current management and current medications. All of the symptoms seems to be chronic in nature. Family needs to be involved and discussion need to be initiated in regards of placement to the [facility]. At present moment, the patient does not meet the criteria for psych admission. This screen writer will follow up with this patient every other day. Should you have any questions give me a call back. Carla Wilkinson MD
[2018-11-26 22:04] VITALS: RESP 18; O2SAT 98
--- NOTE | 2018-11-26 23:37 | CON ---
DATE: 11/26/2018 CONSULT SERVICE: Cardiology. REASON FOR CONSULTATION: A followup cardiac evaluation, admitted with a near syncopal episode. BRIEF CLINICAL HISTORY: This is 68-year-old female with a past medical history significant for dementia, schizophrenia, gastric bypass, admitted here for questionable history of a syncopal episode. The patient is a very poor historian and demented, unable to give any history. Denies any chest pain. Denies any shortness of breath. Denies any palpitation. PAST MEDICAL HISTORY: Significant for dementia, gastric bypass many years ago and history of hypertension. History of dementia and schizophrenia, multiple admissions on the psychiatric floor as well. Past history is also significant for hypertension, hyperlipidemia, coronary artery disease. PREVIOUS CARDIAC WORKUP: Nothing except the EKG, which shows the normal sinus, poor RR progression. No acute ST-T wave changes noted. In the previous chart it is mentioned the patient has multiple stents in the heart. History of previous PTCA in a previous my consult dated 11/21/2016, but the patient is demented and unable to give any history. The patient had a cardiac catheterization on 02/21/2015 here with the deployment of a drug-eluting stent in LAD (SARTHAK), cardiac catheterization at that time revealed 2-vessel disease of the mid LAD and proximal RCA disease as well as mid RCA disease, ejection fraction 45%, EDP was in the range of 18, cath dated 02/11/2015. At that time the catheterization revealed successful PTCA of proximal to mid RCA with 2 drug-eluting stent overlap in RCA and mid PTCA stent was done. Mild decreased LV function with ejection fraction of 40% to 45% medical treatment recommended, on 03/12/2015, ejection fraction reported as mentioned is 45% to 45%. EDP was in the range of elevated 32. PAST SURGICAL HISTORY: History of gastric bypass. The patient has a last echocardiography done on 11/22/2016 that revealed ejection fraction 35%, [id number] hypokinesis of the apical anterior wall, mid aortic regurgitation, [id number] mitral regurgitation that is eccentric, [id number] tricuspid regurgitation. SOCIAL HISTORY: Denies any smoking, denies any history of alcohol abuse. CURRENT MEDICATIONS: The patient is taking Namenda, Ativan, digoxin, Plavix, thiamine, propranolol and Wellbutrin. REVIEW OF SYSTEMS: As per HPI. PHYSICAL EXAMINATION: GENERAL: Height of the patient 5 feet 7 inches. Weight of the patient 170 pounds. Body mass index 26.6 kg/m2. VITAL SIGNS: Temperature afebrile. Heart rate 76 and blood pressure 125/79. HEENT: PERRLA intact. NECK: Supple. No carotid bruits. No thyromegaly. CHEST: Clear to auscultation. HEART: S1 and S2, regular. ABDOMEN: Soft. EXTREMITIES: Clubbing and cyanosis negative. LABORATORY DATA: Blood workup; WBC 4.4, hemoglobin 11.9, hematocrit 36.1 and platelet count 149. Chemistry shows sodium 143, potassium 3.6, chloride 120, carbon dioxide 11, BUN 12, creatinine 1. Troponin remains negative on admission. TSH is 2.35. EKG showed a normal sinus, poor RR progression and essentially a normal EKG. IMPRESSION: A 68-year-old female with a past medical history significant for coronary artery disease, status post multiple stents, last stent was done by me on 03/12/2015, two stents in [id number] right coronary artery overlapping, a stent in mid right coronary artery, and a stent in mid left anterior descending. Since then the patient had remained stable, admitted with a near syncopal episode. The patient is demented, unable to give any history, but happily denies any chest pain. RECOMMENDATIONS: We will get an echo to assess LV function. If it remains stable we can consider a Doppler or a Holter. We will get a lipid profile, TSH and hemoglobin A1c. We will follow with you. Thank you Dr. Olvera for providing us the opportunity in taking care of the patient, Willow Cast. Diana Adkins MD
--- NOTE | 2018-11-27 01:30 | PN ---
This case has been discussed with Dr. Olvera she is inagreement with treatment plan, DATE: 11/26/2018 SUBJECTIVE: This note is for 68-year-old female who came in this time for syncope related to status post fall. The patient has multiple admissions with a past medical history of dementia with behavioral disturbance, hyperlipidemia, hypertension, CHF, chronic anemia, osteoarthritis. I saw the patient today at the bedside. She was alert, oriented, looking comfortable. Denied any chest pain, cough, shortness of breath, hematuria, hematochezia, fevers, or chills. PHYSICAL EXAMINATION: VITAL SIGNS: Temperature 98.1, pulse 76, blood pressure 125/79, respiratory rate 20, oxygen saturation 97% on room air. GENERAL: The patient looking comfortable, chronically ill. HEENT: Normocephalic, atraumatic. PERRLA. Mucous membranes moist. NECK: Supple. No thyromegaly. RESPIRATORY: Respiration, clear to auscultation. No wheeze. No rhonchi. CARDIOVASCULAR: S1, S2. No JVD. No edema. ABDOMEN: Soft, nondistended. No organomegaly. Positive bowel sounds. EXTREMITIES: The patient moving all extremities. No calf tenderness. SKIN: Intact. NEUROLOGIC: The patient is alert and oriented x3 with cognitive deficits. Cranial nerves II through XII intact. MEDICATIONS: Wellbutrin, Plavix, digoxin, Ativan, Namenda, Ferrex 150, Inderal, Seroquel, vitamin B1, Geodon. LABORATORY DATA: On 11/25/2018, white blood cells 4.4, hemoglobin 11.9, hematocrit 36.1, platelet count 149. Sodium 143, potassium 3.6, BUN is 12, creatinine 1, GFR is over 60. Hemoglobin A1c is 5.4. Cholesterol 152, triglycerides 103. Review of urinalysis, negative for UTI. ASSESSMENT AND PLAN: Ms. Willow Cast has had multiple admissions for dementia, hypertension, coronary artery disease, congestive heart failure, chronic anemia. The patient continues on digoxin, Plavix, Wellbutrin, Namenda, Ferrex 150, and Geodon. The patient was seen by Psychiatry. Cardiology is on the case. Gastric and deep venous thrombosis prophylaxis is continued. The patient was for EEG today on 11/26/2018 due to syncope revealed abnormal, presence of focal cortical abnormality involving the left temporal area in keeping with structural abnormality in the same area appreciated. We will follow up with Neurology Recommendations and plan accordingly for either discharge or clinical cource.ALL ABOVE NOTED , AGREED WITH TREATMENT PLAN , LABS , MEDS AND CHART NOTED , WILL F/U Jonathon Sherman APN Fariha Olvera MD [facility]
--- NOTE | 2018-11-27 07:04 | CP.PCM.PN ---
Subjective - Date & Time of Evaluation Date of Evaluation: 11/27/18 Time of Evaluation: 06:25 - Subjective Subjective: Awake, alert, no distress, 1:1 sitter Reason for consultation and follow up: Cardiac evaluation of near syncopal episode, history of dementia, schizophrenia,hypertension, hyperlipidemia, coronary artery disease Seen and examined by me and Dr. Adkins Objective - Vital Signs/Intake and Output Vital Signs (last 24 hours): Temp Pulse Resp BP Pulse Ox 98.4 F 87 18 142/86 98 11/26/18 22:03 11/26/18 22:03 11/26/18 22:03 11/26/18 22:03 11/26/18 22:03 - Medications Medications: Current Medications Bupropion HCl (Wellbutrin) 75 mg PO DAILY [facility] Last Admin: 11/26/18 09:01 Dose: 75 mg Clopidogrel Bisulfate (Plavix) 75 mg PO DAILY [facility] Last Admin: 11/26/18 09:01 Dose: 75 mg Digoxin (Digoxin) 0.125 mg PO 1400 [facility] Last Admin: 11/26/18 14:16 Dose: 0.125 mg Lorazepam (Ativan) 1 mg PO BID [facility]; Protocol Last Admin: 11/26/18 16:59 Dose: 1 mg Memantine (Namenda) 10 mg PO BID [facility] Last Admin: 11/26/18 16:59 Dose: 10 mg Polysaccharide Iron Complex (Ferrex-150) 150 mg PO DAILY [facility] Last Admin: 11/26/18 09:01 Dose: 150 mg Propranolol HCl (Inderal) 40 mg PO DAILY [facility] Last Admin: 11/26/18 09:01 Dose: 40 mg Quetiapine Fumarate (Seroquel) 12.5 mg PO 1700 [facility]; Protocol Last Admin: 11/26/18 16:57 Dose: 12.5 mg Quetiapine Fumarate (Seroquel) 25 mg PO HS [facility]; Protocol Last Admin: 11/26/18 21:04 Dose: 25 mg Thiamine HCl (Vitamin B1 Tab) 100 mg PO DAILY [facility] Last Admin: 11/26/18 09:01 Dose: 100 mg Ziprasidone (Geodon Inj) 10 mg IM BID PRN; Protocol PRN Reason: Agitation Last Admin: 11/26/18 19:22 Dose: 10 mg - Labs Labs: 11/25/18 07:00 11/25/18 07:00 PT 12.3 SECONDS (9.4-12.5) 11/23/18 18:13 INR 1.11 11/23/18 18:13 APTT 27.7 Seconds (26.9-38.3) 11/23/18 18:13 - Constitutional Appears: Non-toxic, No Acute Distress - Head Exam Head Exam: NORMAL INSPECTION, NORMOCEPHALIC - Eye Exam Eye Exam: Normal appearance Pupil Exam: NORMAL ACCOMODATION - ENT Exam ENT Exam: Mucous Membranes Moist, Normal Exam - Respiratory Exam Respiratory Exam: Decreased Breath Sounds, Clear to Ausculation Bilateral, NORMAL BREATHING PATTERN - Cardiovascular Exam Cardiovascular Exam: +S1, +S2 - GI/Abdominal Exam GI & Abdominal Exam: Soft, Normal Bowel Sounds - Extremities Exam Extremities Exam: Full ROM, Normal Capillary Refill - Neurological Exam Neurological Exam: Alert, Awake - Psychiatric Exam Psychiatric exam: Normal Affect, Normal Mood - Skin Skin Exam: Dry, Normal Color, Warm Assessment and Plan - Assessment and Plan (Free Text) Assessment: A 68 year old female who was brought to the ER due to fall. She was found by granddaughter on the floor. History of hypertension, hyperlipidemia,CHF, CVA, COPD, diabetes, dementia, gastric bypass, schizophrenia with multiple admissions in the psychiatric unit. Poor historian. Chart reviewed. She had cardiac cath on 02/21/2015 and showed 2 vessel coronary artery disease. PTCA of LAD with SARTHAK was done. and staged PTCA of RCA scheduled and done on 03/12/15. PTCA with SARTHAK of mid and proximal RCA done. LVEF 40-45%. Patent stent of LAD. Echo done on 11/22/16 and showed LV is borderline dilated, mild concentric LVH, LVEF 35%, mild to moderate hypokinesis in the apical anterior wall,mild AR, moderate to severe mitral regurgitation, mild to moderate TR, RVSP 40 mmHg. Stress test done on 11/23/16 showed normal results with LVEF of 54%. Patient is demented, post fall. Alcohol level on admission 192. EKG normal sinus rhythm.No ischemia. Denies chest pain, denies shortness of breath. Rule out acute coronary syndrome. Will repeat echo to evaluate LV function. Cardiac status stable. Neuro and Psych on consult. Plan: Echo to evaluate LV function No distress, denies chest pain Heart rate stable Blood pressure stable Cardiac status stable On Plavix 75 mg daily,Digoxin 0.125 mg daily, Inderal 40 mg daily Continue current treatment Continue current medications 1:1 sitter Fall precaution Will follow up Plan and treatment discussed with Dr. Adkins
--- NOTE | 2018-11-27 08:53 | CARD ---
APPROVED REPORT Date of service: 11/27/2018 EXAM: Two-dimensional and M-mode echocardiogram with Doppler and color Doppler. INDICATION Syncope 2D DIMENSIONS Left Atrium (2D)3.6 (1.6-4.0cm)IVSd1.5 (0.7-1.1cm) LVDd4.3 (3.9-5.9cm)PWd1.0 (0.7-1.1cm) LVDs3.3 (2.5-4.0cm)FS (%) 21.8 % LVEF (%)44.5 (>50%) M-Mode DIMENSIONS Aortic Root2.00 (2.2-3.7cm)Aortic Cusp Exc.1.30 (1.5-2.0cm) Aortic Valve AoV Peak Sxmuyikj313.0cm/[place] Peak GR.6mmHg Mitral Valve MV E Utljlnkb61.5cm/sMV A Bmihxsyr79.4cm/sE/A ratio0.7 TDI E/Lateral E'0.0E/Medial E'0.0 Tricuspid Valve TR Peak [id number]/sRAP [id number] Peak Gr.26mmHg [id number] LEFT VENTRICLE The left ventricle is normal size. There is borderline concentric left ventricular hypertrophy. Proximal septal thickening is noted. The systolic function is mildly impaired.EF-45% There is mild to moderate hypokinesis in the apical anterior wall. Transmitral Doppler flow pattern is Grade III-reversible restrictive diastolic dysfunction. No left ventricle thrombus noted on this study. There is no ventricular septal defect visualized. There is no left ventricular aneurysm. There is no mass noted in the left ventricle. RIGHT VENTRICLE The right ventricle is normal size. There is normal right ventricular wall thickness. The right ventricular systolic function is normal. ATRIA The left atrium size is normal. The right atrium size is normal. The interatrial septum is intact with no evidence for an atrial septal defect. AORTIC VALVE The aortic valve is calcified but opens well. There is mild aortic regurgitation. There is no aortic valvular stenosis. There is no aortic valvular vegetation. MITRAL VALVE The mitral valve is thickened but opens well. Mitral regurgitation is moderate. The mitral regurgitant jet is eccentrically directed. The mitral regurgitant jet is posteriorly directed, which is consistent with anterior leaflet pathology. There is no mitral valve stenosis. The mitral valve leaflets are thickened and redundant consistent with mitral valve prolapse of anterior Leaflet. TRICUSPID VALVE The tricuspid valve leaflets are thickened , but open well. There is mild to moderate tricuspid regurgitation.RVSP-36 mmof hg. There is no tricuspid valve stenosis. There is no tricuspid valve prolapse or vegetation. GREAT VESSELS The aortic root is normal in size. The ascending aorta is normal in size. The pulmonary artery is normal. The IVC is normal in size and collapses >50% with inspiration. PERICARDIAL EFFUSION There is no pleural effusion. There is no pericardial effusion. <Conclusion> The left ventricle is normal size. The systolic function is mildly impaired.EF-45% There is borderline concentric left ventricular hypertrophy. Proximal septal thickening is noted. There is mild aortic regurgitation. Mitral regurgitation is moderate. There is mild to moderate tricuspid regurgitation.RVSP-36 mmof hg. The IVC is normal in size and collapses >50% with inspiration. There is no pericardial effusion.
[2018-11-27] MEDS: Iron Complex Polysacch 150mg Cap PO SCH (09:45)
--- NOTE | 2018-11-27 13:53 | CP.PCM.PCO ---
Physician Communication Note - Physician Communication Note Physician Communication Note: pt is cleared by psych, could be d/c on the same meds.
[2018-11-27 15:25] VITALS: PULSE 78
[2018-11-27] MEDS: Digoxin 125 mcg (0.125 mg) Tab PO SCH (15:25)
[2018-11-27 15:58] VITALS: BP 128/82; PULSE 94; TEMP 97.3
== END 2018-11-27 22:36 | disposition home or self-care (01) | DRG 312 ==
LOC: ED 17:22 → ERH 21:03 → 2RSO 23:46 → 5RNO 11-24 15:21 → OBSVTOIN 11-25 10:00
PROVIDERS: ADMIT Internal Medicine; ATTEND Internal Medicine
DX: R55 Syncope and collapse (principal); F03.91 Unspecified dementia, unspecified severity, with behavioral disturbance; I11.0 Hypertensive heart disease with heart failure; I50.9 Heart failure, unspecified; D64.9 Anemia, unspecified; E78.00 Pure hypercholesterolemia, unspecified; E78.5 Hyperlipidemia, unspecified; I08.3 Combined rheumatic disorders of mitral, aortic and tricuspid valves; I25.10 Atherosclerotic heart disease of native coronary artery without angina pectoris; Z87.891 Personal history of nicotine dependence; F20.9 Schizophrenia, unspecified; F31.9 Bipolar disorder, unspecified; J44.9 Chronic obstructive pulmonary disease, unspecified; E11.649 Type 2 diabetes mellitus with hypoglycemia without coma; Z87.440 Personal history of urinary (tract) infections; Z95.5 Presence of coronary angioplasty implant and graft; Z86.73 Personal history of transient ischemic attack (TIA), and cerebral infarction without residual deficits; Z91.14 Patient's other noncompliance with medication regimen; Z98.84 Bariatric surgery status